=== PATIENT | female | born 1965 | race Caucasian/White ===

== ENCOUNTER 2023-07-20 16:10 | Inpatient (IN) ==
--- NOTE | 2023-07-20 16:28 | ED Triage Note ---
Date of Service July 20, 2023 History of Present Illness This patient was briefly evaluated while in triage. An abbreviated physical exam was performed. This patient is a 58-year-old Female who presents to the ED for evaluation of body aches, cough, dyspnea, weakness, fever up to 104. symptoms started several days ago. history of COPD. Has not been using albuterol. sent by [facility]. Physical Exam CONSTITUTIONAL: ill appearing, nontoxic SKIN: pink, warm, dry CARDIAC: tachycardic rate and regular rhythm RESPIRATORY: slight increased work of breathing, no tripoding. moving air bilaterally with no wheezes or rales Initial orders for labs and / or imaging were placed and patient was placed in the waiting area until a bed is available. Please see further documentation for the full ED course.
[2023-07-20] MEDS ORDERED: cefTRIAXone SODIUM 2,000 MG/50 ML BAG IV STA (17:27)
[2023-07-20 17:29] LABS: Hematocrit (blood only) 40.5 % (37.0-47.0); Hemoglobin 14.3 g/dl (12.0-16.0); Mean Corpuscular Hemoglobin 34.2 pg (25.0-34.0); Mean Corpuscular Hgb Conc 35.3 g/dL (32.0-36.0); Mean Corpuscular Volume 96.9 fL (80.0-100.0); Mean Platelet Volume 10.8 fL (9.4-12.4); Platelet Count 154 K/uL (130-400); RDW Coefficient of Variation 13.5 % (11.5-14.5); RDW Standard Deviation 48.6 fL (36.4-46.3); Red Blood Count 4.18 M/uL (4.20-5.40); White Blood Count 14.68 K/ul (4.8-10.8)
[2023-07-20 17:44] LABS: Base Excess VBG 0.3 mEq/L; HCO3 VBG 23 mmol/L; Oxygen Saturation VBG < 60.0 %; PCO2 VBG 32 mmHg (38-50); PO2 VBG 20 mmHg; pH VBG 7.47 (7.36-7.41)
--- NOTE | 2023-07-20 17:45 | XRay Report ---
XR chest 1V portable CLINICAL HISTORY: dyspnea, cough, fever COMPARISON STUDY: No previous studies for comparison. FINDINGS: Apparent left lung volume loss may be due to a rotated study. Moderate left mid and basilar airspace opacity is present. Right lung is clear. There is no evidence for pulmonary edema. Azygos f issure is noted. There is no pneumothorax or pleural effusion. IMPRESSION: Airspace opacities within the left mid and lower lung. The findings favor pneumonia. Post radiographs to ensure resolution and exclude the possibility of underlying pulmonary lesion are enzo mmended. ACT 112: Positive. There are findings on this exam that require communication between the performing entity and the patient following Patient Test Result Information Act ([place] Act 112) guidelines. Electronically signed by: Ebenezer Carroll M.D. 07/20/2023 5:43 PM
[2023-07-20 17:46] LABS: Alanine Aminotransferase 55 U/L (7-52); Albumin Globulin Ratio 1.2 (0.9-2); Albumin Level 4.2 gm/dl (3.4-5.0); Alkaline Phosphatase 52 U/L (34-104); Anion Gap 14 (3-11); Aspartate Aminotransferase 66 U/L (13-39); BUN Creatinine Ratio 14.6 (10-20); Bilirubin,Total 1.5 mg/dl (0.2-1.0); Blood Urea Nitrogen 13 mg/dl (6-23); Calcium 8.9 mg/dl (8.6-10.3); Carbon Dioxide 20 mmol/L (21-32); Chloride 93 mmol/L (98-107); Est GFR (African American) 82.8 ml/min; Est GFR (Non-African American) 71.4 ml/min; Globulin 3.4 gm/dl (2.5-4.0); Glucose 111 mg/dl (70-99(Fasting)); Potassium 3.6 mmol/L (3.5-5.1); Sodium 127 mmol/L (136-145); Total Protein 7.6 gm/dl (6.0-8.3)
[2023-07-20 17:49] LABS: Basophils # (auto) 0.04 K/uL (0.00-0.20); Basophils % (auto) 0.3 %; Eosinophils # (auto) 0.18 K/uL (0.00-0.50); Eosinophils % (auto) 1.2 %; Immature Granulocytes # (auto) 0.25 K/uL (0.01-0.20); Immature Granulocytes % (auto) 1.7 %; Lymphocytes # (auto) 0.48 K/uL (1.20-3.40); Lymphocytes % (auto) 3.3 %; Monocytes # (auto) 0.29 K/uL (0.11-0.59); Neutrophils # (auto) 13.44 K/uL (1.40-6.50); Neutrophils % (auto) 91.5 %; Toxic Vacuolation 1+
[2023-07-20 17:53] LABS: Troponin I High Sensitivity 17.6 pg/ml (0-14)
[2023-07-20] MEDS: SODIUM CHLORIDE 0.9% 1,000 ML IV SCH ×2 (18:09→19:53)
[2023-07-20 18:15] LABS: Adenovirus PCR Not Detected (NotDetected); Bordetella parapertussis PCR Not Detected (NotDetected); Bordetella pertussis PCR Not Detected (NotDetected); Chlamydia pneumoniae PCR Not Detected (NotDetected); Coronavirus 229E PCR Not Detected (NotDetected); Coronavirus CoV-2 (COVID19)PCR Not Detected (NotDetected); Coronavirus HKU1 PCR Not Detected (NotDetected); Coronavirus NL63 PCR Not Detected (NotDetected); Coronavirus OC43PCR Not Detected (NotDetected); Human Metapneumovirus PCR Not Detected (NotDetected); Influenza A PCR Not Detected (NotDetected); Influenza B PCR Not Detected (NotDetected); Mycoplasma pneumoniae PCR Not Detected (NotDetected); Parainfluenza Virus 1 PCR Not Detected (NotDetected); Parainfluenza Virus 2 PCR Not Detected (NotDetected); Parainfluenza Virus 3 PCR Not Detected (NotDetected); Parainfluenza Virus 4 PCR Not Detected (NotDetected); Respiratory Syncytial VirusPCR Not Detected (NotDetected); Rhinovirus/Enterovirus PCR Not Detected (NotDetected)
--- NOTE | 2023-07-20 18:32 | Emergency Department Note ---
Impression & Plan Community acquired pneumonia, Sepsis ED Provider Note NAME: SEA RAMIREZ AGE: 58 SEX: F : 1965 ARRIVES VIA: Walk-In INFORMANT: Patient, ED PROVIDER(S): Ana María Guy MD CHIEF COMPLAINT: Shortness of breath, confusion HPI: This is a 58-year-old female presenting for shortness of breath. Patient is with her and states that evening, patient began started feel tired, unwell with a cough. This is been progressive and worsening over the past few days. Her provides the story as patient is unable to meaningfully give information at this time. He states that the patient was in bed since Saturday and has not really gotten out of bed except to go to the bathroom. She has had chills, cough and worsening shortness of breath during this time. She have history of COPD and asthma as well. No temperature reported at home however at doctor's office outpatient temperature was 104. ROS: See above HPI for pertinent positives & negatives. A total of 10 systems reviewed and were otherwise negative. PAST MEDICAL HISTORY: See Below PAST SURGICAL HISTORY: See Below FAMILY HISTORY: See Below SOCIAL HISTORY: See Below HOME MEDICATIONS: See Below ALLERGIES: See Below VITALS: See Below PHYSICAL EXAMINATION: General: Moderate respiratory distress Head: Normocephalic and atraumatic Eyes: Normal inspection, extraocular muscles intact Ear, nose, throat: Normal external exam Neck: Normal range of motion, no meningismus Respiratory: Moderate respite distress with rhonchi at the left lung Cardiovascular: Regular rate/rhythm, no murmur GI: soft, nontender, no guarding or rebound Extremities: nontender, moves all extremities Neuro: Awake, alert, and oriented x 2, moves extremities spontaneously Skin: Warm, dry, and intact MEDICAL DECISION MAKING: This is a 58-year-old female presented for shortness of breath. Patient is moderately dazed here, somewhat confused, not completely oriented. She stares off into space. She is fairly tachypnea, will apply oxygen for comfort. She is not hypoxic. Consider sepsis, will give 2 L resuscitation. Will give broad- spectrum antibiotic with cefepime. Chest Xray independently interpreted by me showing no pneumothorax, large focal opacity in the left lower lung concerning for infectious process. Patient had CT head that revealed no acute intracranial process. -Laboratory shows a leukocytosis to 14. VBG does show slight respiratory alkalosis. Concern for hyponatremia, anion gap is noted. Transaminitis with elevated bilirubin, elevated troponin. All these are concerning for sepsis. CT confirmed left lower lobe pneumonia Patient will require admission at this time due to altered mental status, concern for sepsis in this pneumonia with increased respiratory rate. Differential diagnosis: Pneumonia, sepsis, low concern for meningitis ER treatment provided: See below Diagnostics interpreted by me: ECG: ECG independently interpreted by me with sinus tachycardia, rate of 110, normal axis, normal UT, normal QRS, normal QTc, no ST segment elevations consistent with STEMI criteria Cardiac Monitoring: An order was placed for continuous cardiac monitoring. The monitor shows a rate of 110 with sinus rhythm Laboratory studies: As stated above and show below. Imaging studies: See below. Critical Care Note: I have personally spent 40 minutes of critical care time in the direct management of this patient. This includes bedside care, interpretation of diagnostic studies, and testing, discussion with consultants, patient, and family members, and other required patient management activities. This 40 minutes is in excess of all separately billable procedures. Past Med/Surg History Social History Smoking Status: Current every day smoker Feels Safe at Home: Yes Allergies Allergies Allergy/AdvReac Type Severity Reaction Status Date / Time nickel Allergy Mild Rash Verified 07/20/23 19:11 IVP DYE Allergy Severe Anaphylaxis Uncoded 07/20/23 19:11 Home Meds Home Medications Medication Instructions Recorded Confirmed albuterol sulfate 2.5 mg/3 mL 2.5 mg inhalation DIRECTED PRN 07/20/23 07/20/23 (0.083 %) solution for nebulization Shortness Of Breath Or Wheezing albuterol sulfate 90 mcg/actuation 2 puff inhalation Q4H PRN 07/20/23 07/20/23 aerosol inhaler (Ventolin HFA) COUGH/SHORT OF BREATH/WHEEZING bupropion HCl 200 mg tablet,12 hr 200 mg PO BID 07/20/23 07/20/23 sustained-release diltiazem HCl 240 mg 240 mg PO QAM 07/20/23 07/20/23 capsule,extended release 24 hr escitalopram oxalate 10 mg tablet 15 mg PO QAM 07/20/23 07/20/23 fexofenadine 180 mg tablet 180 mg PO DAILY 07/20/23 07/20/23 fluticasone fur. 100 mcg-umeclid 1 inh inhalation DAILY 07/20/23 07/20/23 62.5 mcg-vilant 25 mcg inhalat.powder (Trelegy Ellipta) folic acid 1 mg tablet 3 mg PO DAILY 07/20/23 07/20/23 hydroxychloroquine 200 mg tablet 300 mg PO HS 07/20/23 07/20/23 leflunomide 10 mg tablet 10 mg PO QAM 07/20/23 07/20/23 losartan 100 mg tablet 100 mg PO QAM 07/20/23 07/20/23 metoprolol succinate 25 mg 25 mg PO DAILY 07/20/23 07/20/23 tablet,extended release 24 hr naproxen sodium 220 mg tablet 440 mg PO Q12H PRN Pain 07/20/23 07/20/23 omeprazole 20 mg capsule,delayed 20 mg PO DAILYBB 07/20/23 07/20/23 release potassium chloride 10 mEq 10 meq PO QAM 07/20/23 07/20/23 tablet,extended release(part/cryst) (Klor-Con M) psyllium 1 tbsp PO DAILY PRN Constipation 07/20/23 07/20/23 upadacitinib 15 mg tablet,extended 15 mg PO QAM 07/20/23 07/20/23 release 24 hr (Rinvoq) Results & Data (ED) Vital Signs Vital Signs - 24 hr 07/20/23 16:18 07/20/23 16:39 07/20/23 16:40 Temperature 37.6 C H Temperature Source Temporal Artery Scan Pulse Rate 124 H 111 H 110 H Pulse Rate from SpO2 Sensor 112 H 109 H Respiratory Rate 22 44 H 39 H Respiratory Effort / Characteristics Non-Labored Respiratory Depth Normal Blood Pressure 131/71 Blood Pressure Mean 91 Pulse Oximetry 95 96 96 Oxygen Delivery Method Room Air Oxygen Flow Rate Sepsis Recent Fever Within 48 Hours Yes Sepsis New/Unexplained Change in Mental Status No Sepsis Action Taken by Nursing Adv Provider Notified 07/20/23 16:45 07/20/23 16:50 07/20/23 16:54 Temperature Temperature Source Pulse Rate 110 H 115 H 113 H Pulse Rate from SpO2 Sensor 117 H Respiratory Rate 21 23 Respiratory Effort / Characteristics Respiratory Depth Blood Pressure Blood Pressure Mean Pulse Oximetry 96 Oxygen Delivery Method Oxygen Flow Rate Sepsis Recent Fever Within 48 Hours Sepsis New/Unexplained Change in Mental Status Sepsis Action Taken by Nursing 07/20/23 16:54 07/20/23 16:57 07/20/23 17:00 Temperature Temperature Source Pulse Rate 112 H Pulse Rate from SpO2 Sensor Respiratory Rate 29 H Respiratory Effort / Characteristics Respiratory Depth Blood Pressure 147/95 H Blood Pressure Mean 101 Pulse Oximetry 98 Oxygen Delivery Method Room Air Oxygen Flow Rate 0 Sepsis Recent Fever Within 48 Hours Sepsis New/Unexplained Change in Mental Status Sepsis Action Taken by Nursing 07/20/23 17:01 07/20/23 17:01 07/20/23 17:10 Temperature Temperature Source Pulse Rate 110 H 112 H Pulse Rate from SpO2 Sensor 112 H Respiratory Rate 30 H 41 H Respiratory Effort / Characteristics Respiratory Depth Blood Pressure 150/60 H Blood Pressure Mean 106 Pulse Oximetry 95 Oxygen Delivery Method Room Air Oxygen Flow Rate Sepsis Recent Fever Within 48 Hours Sepsis New/Unexplained Change in Mental Status Sepsis Action Taken by Nursing 07/20/23 17:15 07/20/23 17:15 07/20/23 17:19 Temperature Temperature Source Pulse Rate 113 H Pulse Rate from SpO2 Sensor 114 H Respiratory Rate 33 H Respiratory Effort / Characteristics Respiratory Depth Blood Pressure 159/97 H 164/90 H Blood Pressure Mean 116 116 Pulse Oximetry 95 Oxygen Delivery Method Oxygen Flow Rate Sepsis Recent Fever Within 48 Hours Sepsis New/Unexplained Change in Mental Status Sepsis Action Taken by Nursing 07/20/23 17:19 07/20/23 17:20 07/20/23 17:20 Temperature Temperature Source Pulse Rate 109 H 110 H Pulse Rate from SpO2 Sensor 109 H 112 H Respiratory Rate 33 H 27 H Respiratory Effort / Characteristics Respiratory Depth Blood Pressure 153/90 H Blood Pressure Mean 108 Pulse Oximetry 96 95 Oxygen Delivery Method Oxygen Flow Rate Sepsis Recent Fever Within 48 Hours Sepsis New/Unexplained Change in Mental Status Sepsis Action Taken by Nursing 07/20/23 17:30 07/20/23 17:40 07/20/23 17:45 Temperature Temperature Source Pulse Rate 106 H 109 H Pulse Rate from SpO2 Sensor Respiratory Rate 35 H 31 H Respiratory Effort / Characteristics Respiratory Depth Blood Pressure 168/96 H Blood Pressure Mean 115 Pulse Oximetry Oxygen Delivery Method Oxygen Flow Rate Sepsis Recent Fever Within 48 Hours Sepsis New/Unexplained Change in Mental Status Sepsis Action Taken by Nursing 07/20/23 17:45 07/20/23 17:50 07/20/23 18:00 Temperature Temperature Source Pulse Rate 105 H 107 H 110 H Pulse Rate from SpO2 Sensor 105 H 107 H 112 H Respiratory Rate 33 H 33 H 33 H Respiratory Effort / Characteristics Respiratory Depth Blood Pressure Blood Pressure Mean Pulse Oximetry 96 95 95 Oxygen Delivery Method Oxygen Flow Rate Sepsis Recent Fever Within 48 Hours Sepsis New/Unexplained Change in Mental Status Sepsis Action Taken by Nursing 07/20/23 18:00 07/20/23 18:10 07/20/23 18:20 Temperature Temperature Source Pulse Rate 117 H 106 H Pulse Rate from SpO2 Sensor Respiratory Rate 27 H 32 H Respiratory Effort / Characteristics Respiratory Depth Blood Pressure 155/97 H Blood Pressure Mean 104 Pulse Oximetry Oxygen Delivery Method Oxygen Flow Rate Sepsis Recent Fever Within 48 Hours Sepsis New/Unexplained Change in Mental Status Sepsis Action Taken by Nursing 07/20/23 18:56 07/20/23 18:56 07/20/23 18:58 Temperature 38.1 C H Temperature Source Oral Pulse Rate Pulse Rate from SpO2 Sensor 104 H Respiratory Rate Respiratory Effort / Characteristics Respiratory Depth Blood Pressure 157/95 H Blood Pressure Mean 107 Pulse Oximetry 98 Oxygen Delivery Method Nasal Cannula Oxygen Flow Rate 2 Sepsis Recent Fever Within 48 Hours Sepsis New/Unexplained Change in Mental Status Sepsis Action Taken by Nursing 07/20/23 19:00 07/20/23 19:00 07/20/23 19:10 Temperature Temperature Source Pulse Rate 108 H 105 H Pulse Rate from SpO2 Sensor 109 H 108 H Respiratory Rate 22 41 H Respiratory Effort / Characteristics Respiratory Depth Blood Pressure 167/83 H Blood Pressure Mean 125 Pulse Oximetry 97 97 Oxygen Delivery Method Room Air Oxygen Flow Rate Sepsis Recent Fever Within 48 Hours Sepsis New/Unexplained Change in Mental Status Sepsis Action Taken by Nursing 07/20/23 19:21 07/20/23 19:54 07/20/23 19:58 Temperature 37.8 C H Temperature Source Oral Pulse Rate 115 H 110 H Pulse Rate from SpO2 Sensor Respiratory Rate 35 H Respiratory Effort / Characteristics Respiratory Depth Blood Pressure 159/86 H Blood Pressure Mean Pulse Oximetry Oxygen Delivery Method Oxygen Flow Rate Sepsis Recent Fever Within 48 Hours Sepsis New/Unexplained Change in Mental Status Sepsis Action Taken by Nursing Laboratory Data 07/20/23 16:50 07/20/23 20:17 Lab Results 07/20/23 07/20/23 07/20/23 Range/Units 16:50 16:51 17:33 WBC 14.68 H (4.8-10.8) K/ul RBC 4.18 L (4.20-5.40) M/uL Hgb 14.3 (12.0-16.0) g/dl Hct 40.5 (37.0-47.0) % MCV 96.9 (80.0-100.0) fL MCH 34.2 H (25.0-34.0) pg MCHC 35.3 (32.0-36.0) g/dL RDW Std Deviation 48.6 H (36.4-46.3) fL RDW Coeff of Ilia 13.5 (11.5-14.5) % Plt Count 154 (130-400) K/uL MPV 10.8 (9.4-12.4) fL Immature Gran % (Auto) 1.7 % Neut % (Auto) 91.5 % Lymph % (Auto) 3.3 % [place] % (Auto) 2.0 % Eos % (Auto) 1.2 % Baso % (Auto) 0.3 % Neut # (Auto) 13.44 H (1.40-6.50) K/uL Lymph # (Auto) 0.48 L (1.20-3.40) K/uL [place] # (Auto) 0.29 (0.11-0.59) K/uL Eos # (Auto) 0.18 (0.00-0.50) K/uL Baso # (Auto) 0.04 (0.00-0.20) K/uL Immature Gran # (Auto) 0.25 H (0.01-0.20) K/uL Toxic Vacuolation 1+ APTT (21.0-31.0) Seconds PTT Ratio VBG pH 7.47 H (7.36-7.41) VBG pCO2 32 L (38-50) mmHg VBG pO2 20 mmHg VBG HCO3 23 mmol/L VBG O2 Saturation < 60.0 % VBG Base Excess 0.3 mEq/L Sodium 127 L (136-145) mmol/L Potassium 3.6 (3.5-5.1) mmol/L Chloride 93 L (98-107) mmol/L Carbon Dioxide 20 L (21-32) mmol/L Anion Gap 14 H (3-11) BUN 13 (6-23) mg/dl Creatinine 0.89 (0.6-1.2) mg/dl Est Cr Clr Drug Dosing Not Reportable Est GFR ( Amer) 82.8 ml/min Est GFR (Non-Af Amer) 71.4 ml/min BUN/Creatinine Ratio 14.6 (10-20) Glucose 111 H (70-99(Fasting)) mg/dl Osmolality (280-300) mOsm/kg Lactate 1.9 (0.4-2.0) mmol/L Calcium 8.9 (8.6-10.3) mg/dl Magnesium 1.7 (1.7-2.4) mg/dl Total Bilirubin 1.5 H (0.2-1.0) mg/dl AST 66 H (13-39) U/L ALT 55 H (7-52) U/L Alkaline Phosphatase 52 (34-104) U/L Troponin I High Sens 17.6 H (0-14) pg/ml Total Protein 7.6 (6.0-8.3) gm/dl Albumin 4.2 (3.4-5.0) gm/dl Globulin 3.4 (2.5-4.0) gm/dl Albumin/Globulin Ratio 1.2 (0.9-2) TSH 1.811 (0.300-4.500) uIu/ml Ethyl Alcohol mg/dL (<10.0) mg/dl Adenovirus (PCR) Not Detected (NotDetected) B. pertussis DNA (PCR) Not Detected (NotDetected) B.parapertussis DNA PCR Not Detected (NotDetected) C. pneumoniae DNA (PCR) Not Detected (NotDetected) Coronavirus OC43 (PCR) Not Detected (NotDetected) Coronavirus HKU1 (PCR) Not Detected (NotDetected) Coronavirus 229E (PCR) Not Detected (NotDetected) SARS-CoV-2 (PCR) Not Detected (NotDetected) Coronavirus NL63 (PCR) Not Detected (NotDetected) Human Metapneumovir PCR Not Detected (NotDetected) Influenza Type A (PCR) Not Detected (NotDetected) Influenza Type B (PCR) Not Detected (NotDetected) M. pneumoniae (PCR) Not Detected (NotDetected) Parainfluenza 1 (PCR) Not Detected (NotDetected) Parainfluenza 2 (PCR) Not Detected (NotDetected) Parainfluenza 3 (PCR) Not Detected (NotDetected) Parainfluenza 4 (PCR) Not Detected (NotDetected) RSV (PCR) Not Detected (NotDetected) Entero/Rhino (PCR) Not Detected (NotDetected) 07/20/23 Range/Units 20:17 WBC (4.8-10.8) K/ul RBC (4.20-5.40) M/uL Hgb (12.0-16.0) g/dl Hct (37.0-47.0) % MCV (80.0-100.0) fL MCH (25.0-34.0) pg MCHC (32.0-36.0) g/dL RDW Std Deviation (36.4-46.3) fL RDW Coeff of Ilia (11.5-14.5) % Plt Count (130-400) K/uL MPV (9.4-12.4) fL Immature Gran % (Auto) % Neut % (Auto) % Lymph % (Auto) % [place] % (Auto) % Eos % (Auto) % Baso % (Auto) % Neut # (Auto) (1.40-6.50) K/uL Lymph # (Auto) (1.20-3.40) K/uL [place] # (Auto) (0.11-0.59) K/uL Eos # (Auto) (0.00-0.50) K/uL Baso # (Auto) (0.00-0.20) K/uL Immature Gran # (Auto) (0.01-0.20) K/uL Toxic Vacuolation APTT 30.8 (21.0-31.0) Seconds PTT Ratio 1.1 VBG pH (7.36-7.41) VBG pCO2 (38-50) mmHg VBG pO2 mmHg VBG HCO3 mmol/L VBG O2 Saturation % VBG Base Excess mEq/L Sodium 129 L (136-145) mmol/L Potassium (3.5-5.1) mmol/L Chloride (98-107) mmol/L Carbon Dioxide (21-32) mmol/L Anion Gap (3-11) BUN (6-23) mg/dl Creatinine (0.6-1.2) mg/dl Est Cr Clr Drug Dosing Est GFR ( Amer) ml/min Est GFR (Non-Af Amer) ml/min BUN/Creatinine Ratio (10-20) Glucose (70-99(Fasting)) mg/dl Osmolality 265 L (280-300) mOsm/kg Lactate (0.4-2.0) mmol/L Calcium (8.6-10.3) mg/dl Magnesium (1.7-2.4) mg/dl Total Bilirubin (0.2-1.0) mg/dl AST (13-39) U/L ALT (7-52) U/L Alkaline Phosphatase (34-104) U/L Troponin I High Sens 28.5 H D (0-14) pg/ml Total Protein (6.0-8.3) gm/dl Albumin (3.4-5.0) gm/dl Globulin (2.5-4.0) gm/dl Albumin/Globulin Ratio (0.9-2) TSH (0.300-4.500) uIu/ml Ethyl Alcohol mg/dL < 10.0 (<10.0) mg/dl Adenovirus (PCR) (NotDetected) B. pertussis DNA (PCR) (NotDetected) B.parapertussis DNA PCR (NotDetected) C. pneumoniae DNA (PCR) (NotDetected) Coronavirus OC43 (PCR) (NotDetected) Coronavirus HKU1 (PCR) (NotDetected) Coronavirus 229E (PCR) (NotDetected) SARS-CoV-2 (PCR) (NotDetected) Coronavirus NL63 (PCR) (NotDetected) Human Metapneumovir PCR (NotDetected) Influenza Type A (PCR) (NotDetected) Influenza Type B (PCR) (NotDetected) M. pneumoniae (PCR) (NotDetected) Parainfluenza 1 (PCR) (NotDetected) Parainfluenza 2 (PCR) (NotDetected) Parainfluenza 3 (PCR) (NotDetected) Parainfluenza 4 (PCR) (NotDetected) RSV (PCR) (NotDetected) Entero/Rhino (PCR) (NotDetected) Administered Medications Nicotine (Nicotine 14 Mg/24 Hr Patch) 14 mg TD HS JAQUELIN Stop: 08/19/23 20:29 Last Admin: 07/20/23 21:13 Dose: 14 mg Documented By: GEORGE Discontinued Medications Acetaminophen (Acetaminophen 325 Mg Tab) 650 mg PO NOW STA Stop: 07/20/23 19:04 Last Admin: 07/20/23 19:10 Dose: 650 mg Documented By: GEORGE Ceftriaxone Sodium (Rocephin) 2,000 mg in 50 mls @ 100 mls/hr IV NOW STA; Protocol Stop: 07/20/23 17:56 Last Admin: 07/20/23 18:10 Dose: Not Given Documented By: GEORGE Sodium Chloride (Nss) 1,000 mls @ 999 mls/hr IV .Q1H1M JAQUELIN Stop: 07/20/23 20:00 Last Infusion: 07/20/23 21:19 Dose: Infused Documented By: Admin: 07/20/23 19:53 Dose: 999 mls/hr Documented By: Infusion: 07/20/23 19:10 Dose: Infused Documented By: Admin: 07/20/23 18:09 Dose: 999 mls/hr Documented By: GEORGE Cefepime HCl (Maxipime) 2,000 mg in 20 mls @ 5 mls/min IV NOW STA; Protocol Stop: 07/20/23 18:57 Last Admin: 07/20/23 19:11 Dose: 5 mls/min Documented By: GEORGE Doxycycline Hyclate 100 mg/ (Dextrose) 100 mls @ 50 mls/hr IV NOW STA Stop: 07/20/23 21:32 Last Infusion: 07/20/23 23:31 Dose: Infused Documented By: Admin: 07/20/23 21:11 Dose: 50 mls/hr Documented By: GEORGE Magnesium Sulfate/Dextrose (Magnesium Sulfate / D5w) 1 gm in 100 mls @ 50 mls/hr IV ONE ONE Stop: 07/20/23 21:34 Last Infusion: 07/20/23 21:57 Dose: Infused Documented By: Admin: 07/20/23 19:55 Dose: 50 mls/hr Documented By: GEORGE Methylprednisolone 20 mg/ (Syringe) 0.32 mls @ 1.5 mls/min IV NOW STA Stop: 07/20/23 20:31 Last Admin: 07/20/23 21:12 Dose: 1.5 mls/min Documented By: GEORGE Magnesium Sulfate/Dextrose (Magnesium Sulfate / D5w) 1 gm in 100 mls @ 50 mls/hr IV ONE ONE Stop: 07/20/23 22:30 Last Admin: 07/20/23 22:59 Dose: 50 mls/hr Documented By: MONIQUE Ioversol (Optiray 320 500ml) 86 ml IV ONCE ONE Stop: 07/20/23 18:37 Last Admin: 07/20/23 18:37 Dose: 86 ml Documented By: BUTCH Ipratropium [place] (Ipratropium [place] Neb Soln 0.02% 2.5 Ml Vial) 0.5 mg INH NOW STA Stop: 07/20/23 20:30 Last Admin: 07/20/23 21:15 Dose: 0.5 mg Documented By: GEORGE Levalbuterol HCl (Levalbuterol 1.25mg/0.5ml Neb) 1.25 mg NEB NOW STA Stop: 07/20/23 20:30 Last Admin: 07/20/23 21:28 Dose: 1.25 mg Documented By: GEORGE Levalbuterol HCl (Levalbuterol 1.25 Mg/3 Ml Neb) Confirm Administered Dose 1.25 mg .ROUTE .STK-MED ONE Stop: 07/20/23 21:27 Last Admin: 07/20/23 21:28 Dose: Not Given Documented By: GEORGE Metoprolol Tartrate (Metoprolol Tartrate 1 Mg/Ml Vial) 2.5 mg IV NOW STA Stop: 07/20/23 19:34 Last Admin: 07/20/23 19:54 Dose: 2.5 mg Documented By: GEORGE Potassium Chloride (Potassium Chloride Crtab 20 Meq Tabcr) 40 meq PO NOW STA Stop: 07/20/23 19:33 Last Admin: 07/20/23 19:51 Dose: 40 meq Documented By: GEORGE Imaging Data Radiologist's Impression: Chest X-Ray 07/20/23 16:21 XR chest 1V portable CLINICAL HISTORY: dyspnea, cough, fever COMPARISON STUDY: No previous studies for comparison. FINDINGS: Apparent left lung volume loss may be due to a rotated study. Moderate left mid and basilar airspace opacity is present. Right lung is clear. There is no evidence for pulmonary edema. Azygos fissure is noted. There is no pneumothorax or pleural effusion. IMPRESSION: Airspace opacities within the left mid and lower lung. The findings favor pneumonia. Post radiographs to ensure resolution and exclude the possibility of underlying pulmonary lesion are recommended. ACT 112: Positive. There are findings on this exam that require communication between the performing entity and the patient following Patient Test Result Information Act ([place] Act 112) guidelines. Electronically signed by: Ebenezer Carroll M.D. 07/20/2023 5:[address] 07/20/23 17:26 CT OF THE CHEST WITH IV CONTRAST CLINICAL HISTORY: Shortness of breath. COMPARISON STUDY: Chest radiograph performed earlier today. TECHNIQUE: Following IV administration of 86 mL of Optiray, helical axial images of the chest were obtained. Sagittal and coronal reconstructions were viewed as well as maximal intensity projections on an independent 3-D workstation. Automated exposure control was utilized for the study. A dose lowering technique was utilized adhering to the principles of ALARA. CT DOSE: 1248.32 mGy.cm FINDINGS: Lungs are suboptimally assessed due to respiratory motion. There is extensive left upper lobe consolidation, predominantly within the lingula. Central airways are patent. There is no cavitation. There is a trace left pleural effusion. Severe emphysema is present. There is no consolidation within the right lung. Azygos fissure is incidentally noted. Right middle lobe linear density favors atelectasis. No acute fractures within the bony thorax are noted. There is a prominent AP window lymph node on image 77 of 233 measures 1 cm. Mild cardiomegaly is noted. There is no pericardial effusion. Visualized portions of the upper abdomen demonstrate mild fluid adjacent to the left adrenal gland and upper pole of the left kidney. No convincing evidence for pancreatitis within visualized portions of the abdomen. IMPRESSION: 1. Extensive lingular consolidation suggestive of pneumonia. A follow-up chest CT in 1 to 2 months to ensure resolution is recommended. Trace left pleural effusion. 2. Severe emphysema. 3. Prominent AP window lymph node. This is likely reactive but should be assessed on follow-up CT. 4. Mild fluid adjacent to left adrenal gland and upper pole of the left kidney. This finding is nonspecific. ACT 112: Positive. There are findings on this exam that require communication between the performing entity and the patient following Patient Test Result Information Act ([place] Act 112) guidelines. Electronically signed by: Ebenezer Carroll M.D. 07/20/2023 6:[address] 07/20/23 17:26 CT OF THE HEAD WITHOUT CONTRAST CLINICAL HISTORY: Altered mental status. COMPARISON STUDY: No previous studies for comparison. TECHNIQUE: Helical axial images of the head were obtained without IV contrast. Automated exposure control was utilized for the study. A dose lowering technique was utilized adhering to the principles of ALARA. FINDINGS: No acute intracranial hemorrhage, midline shift or mass effect is present. The ventricular system is unremarkable. The basal cisterns are patent. No extra-axial collections are present. There are no findings to suggest acute dural sinus thrombosis or acute territorial infarct. White matter hypodensity suggests small vessel disease. No significant calvarial abnormalities are present. Visualized portions of the sinuses and mastoid air cells are clear. IMPRESSION: No acute intracranial findings. ACT 112: Negative or not required by law. Electronically signed by: Ebenezer Carroll M.D. 07/20/2023 6:49 PM Discharge Plan Visit Data Chief Complaint: Shortness of Breath/Dyspnea Stated Complaint: SOB, HEAD COLD, LOW ENERGY, CONFUSION ED Provider: Ana María Guy Discharge Problem: Community acquired pneumonia, Sepsis Discharge Instructions Interventions: ED Discharge Assessment Last Done: 07/20/23 22:56
[2023-07-20] MEDS ORDERED: OPTIRAY 320 500ml IV ONE (18:36)
--- NOTE | 2023-07-20 18:50 | CT Scan Report ---
CT OF THE HEAD WITHOUT CONTRAST CLINICAL HISTORY: Altered mental status. COMPARISON STUDY: No previous studies for comparison. TECHNIQUE: Helical axial images of the head were obtained without IV contrast. Automated exposure con trol was utilized for the study. A dose lowering technique was utilized adhering to the principles o f ALARA. FINDINGS: No acute intracranial hemorrhage, midline shift or mass effect is present. The ventricular system is unremarkable. The basal cisterns are patent. No extra-axial collections are present. There are no findings to suggest acute dural sinus thrombosis or acute territorial infarct. White matter hy podensity suggests small vessel disease. No significant calvarial abnormalities are present. Visualiz ed portions of the sinuses and mastoid air cells are clear. IMPRESSION: No acute intracranial findings. ACT 112: Negative or not required by law. Electronically signed by: Ebenezer Carroll M.D. 07/20/2023 6:49 PM
[2023-07-20] MEDS ORDERED: CEFEPIME 2,000 MG/20 ML VIAL IV STA (18:54)
--- NOTE | 2023-07-20 18:59 | CT Scan Report ---
CT OF THE CHEST WITH IV CONTRAST CLINICAL HISTORY: Shortness of breath. COMPARISON STUDY: Chest radiograph performed earlier today. TECHNIQUE: Following IV administration of 86 mL of Optiray, helical axial images of the chest were o btained. Sagittal and coronal reconstructions were viewed as well as maximal intensity projections o n an independent 3-D workstation. Automated exposure control was utilized for the study. A dose low ering technique was utilized adhering to the principles of ALARA. CT DOSE: 1248.32 mGy.cm FINDINGS: Lungs are suboptimally assessed due to respiratory motion. There is extensive left upper l obe consolidation, predominantly within the lingula. Central airways are patent. There is no cavitati on. There is a trace left pleural effusion. Severe emphysema is present. There is no consolidation wi thin the right lung. Azygos fissure is incidentally noted. Right middle lobe linear density favors at electasis. No acute fractures within the bony thorax are noted. There is a prominent AP window lymph node on image 77 of 233 measures 1 cm. Mild cardiomegaly is noted. There is no pericardial effusion. Visualized portions of the upper abdomen demonstrate mild fluid adjacent to the left adrenal gland an d upper pole of the left kidney. No convincing evidence for pancreatitis within visualized portions o f the abdomen. IMPRESSION: 1. Extensive lingular consolidation suggestive of pneumonia. A follow-up chest CT in 1 to 2 months to ensure resolution is recommended. Trace left pleural effusion. 2. Severe emphysema. 3. Prominent AP window lymph node. This is likely reactive but should be assessed on follow-up CT. 4. Mild fluid adjacent to left adrenal gland and upper pole of the left kidney. This finding is nonsp ecific. ACT 112: Positive. There are findings on this exam that require communication between the performing entity and the patient following Patient Test Result Information Act ([place] Act 112) guidelines. Electronically signed by: Ebenezer Carroll M.D. 07/20/2023 6:57 PM
[2023-07-20] MEDS ORDERED: ACETAMINOPHEN 325 MG TAB PO STA (19:03)
[2023-07-20] MEDS ORDERED: POTASSIUM CHLORIDE CRTAB 20 MEQ TABCR PO STA (19:32)
[2023-07-20] MEDS ORDERED: DOXYCYCLINE HYCLATE 100 MG in DEXTROSE 5% MINI-B 100 ML IV STA (19:33)
[2023-07-20] MEDS ORDERED: METOPROLOL TARTRATE 1 MG/ML VIAL IV STA (19:33)
[2023-07-20] MEDS ORDERED: MAGNESIUM SULFATE / D5W 1 GM/100 ML BAG IV ONE ×2 (19:35→20:31)
[2023-07-20 19:57] LABS: Magnesium 1.7 mg/dl (1.7-2.4)
[2023-07-20 20:13] LABS: Thyroid Stimulating Hormone 1.811 uIu/ml (0.300-4.500)
[2023-07-20] MEDS ORDERED: IPRATROPIUM BROMIDE NEB SOLN 0.02% 2.5 ML VIAL INH STA (20:29)
[2023-07-20] MEDS ORDERED: LEVALBUTEROL 1.25MG/0.5ML NEB NEB STA (20:29)
[2023-07-20] MEDS ORDERED: XOPENEX/ATROVENT 1.25mg/0.5MG NEB COMBO NEB STA (20:29)
[2023-07-20] MEDS ORDERED: methylPREDNISolone 20 MG in SYRINGE 0 ML IV STA (20:30)
--- NOTE | 2023-07-20 20:31 | History & Physical Report ---
Date of Service July 20, 2023 Assessment & Plan (1) Severe sepsis: Plan: SIRS plus encephalopathy Secondary to community-acquired pneumonia Immunocompromised patient hx rheumatoid arthritis on immunosuppressive regimen Encephalopathy secondary to sepsis, hyponatremia Home bupropion contributory COPD exacerbation secondary to pneumonia Hypertension and troponin elevation secondary to illness hx PSVT Abnormal LFTs, hx NAFLD as per records, ? possible alcoholic hepatitis, concern for alcohol abuse as per outpatient [facility]ology documentation last month ADD/anxiety/mood disorder Hyperglycemia rule out DM erythema nodosum as per records ongoing tobacco abuse. Medical telemetry CS, Ceftriaxone, Doxycycline Nebs RTC, short course steroids Pulmonology consult if without improvement Hold Arava and Rinvoq RA medications for now until patient recovers from infection. Careful correction of sodium, hyponatremia work-up Hold bupropion until patient mentation back to baseline MAGGIE S at risk protocol for now, DT precautions Check hemoglobin A1c DVT prophylaxis. Lovenox subcu Full code Attempted to contact patient's (Mr. Barrington Amezcua, contact #[phone]) to obtain additional information and to give update on plan of care. No answer, left message for call back. Text document was generated using [employer] voice recognition software. It may contain grammatical or spelling errors. Kindly contact undersigned for clarification of any documentation item in question. History of Present Illness Chief Complaint: Shortness of breath, cough symptoms, zoning out Primary Care Provider: Lilly Thorne MD History obtained from patient and records. History limited from patient secondary to mild disorientation. Medical history significant for hypertension, PSVT, COPD, RA on immunosuppressive regimen, NAFLD as per records, ADD/anxiety/mood disorder, cervical dysplasia as per records, erythema nodosum as per records, ongoing tobacco abuse. Patient has been sick the last few days. Junky cough symptoms without shortness of breath. Denies chest pain or aspiration. Fever chills at home. Wheezing at home despite MDI use. Not sure about sick contacts. Patient has received COVID-19 vaccination. Patient 'zoning out' at home. No syncope or headache symptoms. Patient seen at weekend clinic today. Patient noted to be febrile and tachycardic. SBP 90s. Patient directed to ER for evaluation. Cefepime administered at the ER. Medical History as above Surgical History : Carpal tunnel surgery, BTL, laparoscopy for endometriosis Family History : MS, uterine cancer, breast cancer, COPD, bronchial asthma Personal/Social history : Half pack daily, social alcohol intake as per records, [employer] Allergies Allergy/AdvReac Type Severity Reaction Status Date / Time nickel Allergy Mild Rash Verified 07/20/23 19:11 IVP DYE Allergy Severe Anaphylaxis Uncoded 07/20/23 19:11 Home Medications Medication Instructions Recorded Confirmed Type albuterol sulfate 2.5 mg/3 mL 2.5 mg inhalation DIRECTED PRN 07/20/23 07/20/23 History (0.083 %) solution for nebulization Shortness Of Breath Or Wheezing albuterol sulfate 90 mcg/actuation 2 puff inhalation Q4H PRN 07/20/23 07/20/23 History aerosol inhaler (Ventolin HFA) COUGH/SHORT OF BREATH/WHEEZING bupropion HCl 200 mg tablet,12 hr 200 mg PO BID 07/20/23 07/20/23 History sustained-release diltiazem HCl 240 mg 240 mg PO QAM 07/20/23 07/20/23 History capsule,extended release 24 hr escitalopram oxalate 10 mg tablet 15 mg PO QAM 07/20/23 07/20/23 History fexofenadine 180 mg tablet 180 mg PO DAILY 07/20/23 07/20/23 History fluticasone fur. 100 mcg-umeclid 1 inh inhalation DAILY 07/20/23 07/20/23 Histo ry 62.5 mcg-vilant 25 mcg inhalat.powder (Trelegy Ellipta) folic acid 1 mg tablet 3 mg PO DAILY 07/20/23 07/20/23 History hydroxychloroquine 200 mg tablet 300 mg PO HS 07/20/23 07/20/23 History leflunomide 10 mg tablet 10 mg PO QAM 07/20/23 07/20/23 History losartan 100 mg tablet 100 mg PO QAM 07/20/23 07/20/23 History metoprolol succinate 25 mg 25 mg PO DAILY 07/20/23 07/20/23 History tablet,extended release 24 hr naproxen sodium 220 mg tablet 440 mg PO Q12H PRN Pain 07/20/23 07/20/23 History omeprazole 20 mg capsule,delayed 20 mg PO DAILYBB 07/20/23 07/20/23 History release potassium chloride 10 mEq 10 meq PO QAM 07/20/23 07/20/23 History tablet,extended release(part/cryst) (Klor-Con M) psyllium 1 tbsp PO DAILY PRN Constipation 07/20/23 07/20/23 History upadacitinib 15 mg tablet,extended 15 mg PO QAM 07/20/23 07/20/23 History release 24 hr (Rinvoq) Past Med/Surg History Social History Smoking Status: Current every day smoker Tobacco Type: Cigarettes Second Hand Exposure: No; Do You Dip or Chew Tobacco: No; Hx Alcohol Use: Yes Alcohol type: hard liquor Hx Substance Use: No Preferred Language: German Communication Ability: Effective Merchandise Manager Required: No Beliefs That Will Affect Care: None Current Living Situation: Spouse Feels Safe at Home: Yes Safety Concerns: Feels Safe At This Time Assistive Devices: None Review of Systems Review of Systems: Could not be reliably obtained secondary to mild disorientation Physical Exam Physical Exam: GENERAL: Slightly uncomfortable, anxious, oriented to place, respiratory distress, nasal cannula in place SKIN: Normal color, warm HEENT: [place] palpebral conjunctivae, no ptosis, dry buccal mucosa NECK : Supple, no tenderness CHEST : Decreased breath sounds, occasional expiratory wheezes, no tenderness HEART : RRR, no obvious murmurs ABDOMEN: Some distention, nontender EXTREMITIES : Reticulate bluish discoloration over lower extremities (chronic as per patient), no LE swelling/tenderness, no other conspicuous deformities not ed NEUROLOGIC : Oriented to place, no facial asymmetry, no other gross focality Results & Data Results & Data Vital Signs (Past 12 Hours) Vital Signs Temp Pulse Resp BP Pulse Ox O2 Del Method O2 Flow Rate 07/20/23 19:58 37.8 C H 07/20/23 19:54 110 H 159/86 H 07/20/23 19:21 115 H 35 H 07/20/23 19:10 105 H 41 H 97 Room Air 07/20/23 19:00 108 H 22 97 07/20/23 19:00 167/83 H 07/20/23 18:58 38.1 C H 07/20/23 18:56 98 Nasal Cannula 2 07/20/23 18:56 157/95 H 07/20/23 18:20 106 H 32 H 07/20/23 18:10 117 H 27 H 07/20/23 18:00 155/97 H 07/20/23 18:00 110 H 33 H 95 07/20/23 17:50 107 H 33 H 95 07/20/23 17:45 105 H 33 H 96 07/20/23 17:45 168/96 H 07/20/23 17:40 109 H 31 H 07/20/23 17:30 106 H 35 H 07/20/23 17:20 110 H 27 H 95 07/20/23 17:20 153/90 H 07/20/23 17:19 109 H 33 H 96 07/20/23 17:19 164/90 H 07/20/23 17:15 113 H 33 H 95 07/20/23 17:15 159/97 H 07/20/23 17:10 112 H 41 H 95 Room Air 07/20/23 17:01 110 H 30 H 07/20/23 17:01 150/60 H 07/20/23 17:00 112 H 29 H 07/20/23 16:57 98 Room Air 0 07/20/23 16:54 147/95 H 07/20/23 16:54 113 H 23 96 07/20/23 16:50 115 H 21 07/20/23 16:45 110 H 07/20/23 16:40 110 H 39 H 96 07/20/23 16:39 111 H 44 H 96 07/20/23 16:18 37.6 C H 124 H 22 131/71 95 Room Air Laboratory Results Laboratory Results WBC 14.68 K/ul (4.8-10.8) H 07/20/23 16:50 RBC 4.18 M/uL (4.20-5.40) L 07/20/23 16:50 Hgb 14.3 g/dl (12.0-16.0) 07/20/23 16:50 Hct 40.5 % (37.0-47.0) 07/20/23 16:50 MCV 96.9 fL (80.0-100.0) 07/20/23 16:50 MCH 34.2 pg (25.0-34.0) H 07/20/23 16:50 MCHC 35.3 g/dL (32.0-36.0) 07/20/23 16:50 RDW Std Deviation 48.6 fL (36.4-46.3) H 07/20/23 16:50 RDW Coeff of Ilia 13.5 % (11.5-14.5) 07/20/23 16:50 Plt Count 154 K/uL (130-400) 07/20/23 16:50 MPV 10.8 fL (9.4-12.4) 07/20/23 16:50 Immature Gran % (Auto) 1.7 % 07/20/23 16:50 Neut % (Auto) 91.5 % 07/20/23 16:50 Lymph % (Auto) 3.3 % 07/20/23 16:50 [place] % (Auto) 2.0 % 07/20/23 16:50 Eos % (Auto) 1.2 % 07/20/23 16:50 Baso % (Auto) 0.3 % 07/20/23 16:50 Neut # (Auto) 13.44 K/uL (1.40-6.50) H 07/20/23 16:50 Lymph # (Auto) 0.48 K/uL (1.20-3.40) L 07/20/23 16:50 [place] # (Auto) 0.29 K/uL (0.11-0.59) 07/20/23 16:50 Eos # (Auto) 0.18 K/uL (0.00-0.50) 07/20/23 16:50 Baso # (Auto) 0.04 K/uL (0.00-0.20) 07/20/23 16:50 Immature Gran # (Auto) 0.25 K/uL (0.01-0.20) H 07/20/23 16:50 Toxic Vacuolation 1+ 07/20/23 16:50 VBG pH 7.47 (7.36-7.41) H 07/20/23 17:33 VBG pCO2 32 mmHg (38-50) L 07/20/23 17:33 VBG pO2 20 mmHg 07/20/23 17:33 VBG HCO3 23 mmol/L 07/20/23 17:33 VBG O2 Saturation < 60.0 % 07/20/23 17:33 VBG Base Excess 0.3 mEq/L 07/20/23 17:33 Sodium 127 mmol/L (136-145) L 07/20/23 16:50 Potassium 3.6 mmol/L (3.5-5.1) 07/20/23 16:50 Chloride 93 mmol/L (98-107) L 07/20/23 16:50 Carbon Dioxide 20 mmol/L (21-32) L 07/20/23 16:50 Anion Gap 14 (3-11) H 07/20/23 16:50 BUN 13 mg/dl (6-23) 07/20/23 16:50 Creatinine 0.89 mg/dl (0.6-1.2) 07/20/23 16:50 Est Cr Clr Drug Dosing Not Reportable 07/20/23 16:50 Est GFR ( Amer) 82.8 ml/min 07/20/23 16:50 Est GFR (Non-Af Amer) 71.4 ml/min 07/20/23 16:50 BUN/Creatinine Ratio 14.6 (10-20) 07/20/23 16:50 Glucose 111 mg/dl (70-99(Fasting)) H 07/20/23 16:50 Lactate 1.9 mmol/L (0.4-2.0) 07/20/23 17:33 Calcium 8.9 mg/dl (8.6-10.3) 07/20/23 16:50 Magnesium 1.7 mg/dl (1.7-2.4) 07/20/23 16:50 Total Bilirubin 1.5 mg/dl (0.2-1.0) H 07/20/23 16:50 AST 66 U/L (13-39) H 07/20/23 16:50 ALT 55 U/L (7-52) H 07/20/23 16:50 Alkaline Phosphatase 52 U/L (34-104) 07/20/23 16:50 Troponin I High Sens 17.6 pg/ml (0-14) H 07/20/23 16:50 Total Protein 7.6 gm/dl (6.0-8.3) 07/20/23 16:50 Albumin 4.2 gm/dl (3.4-5.0) 07/20/23 16:50 Globulin 3.4 gm/dl (2.5-4.0) 07/20/23 16:50 Albumin/Globulin Ratio 1.2 (0.9-2) 07/20/23 16:50 TSH 1.811 uIu/ml (0.300-4.500) 07/20/23 16:50 Adenovirus (PCR) Not Detected (NotDetected) 07/20/23 16:51 B. pertussis DNA (PCR) Not Detected (NotDetected) 07/20/23 16:51 B.parapertussis DNA PCR Not Detected (NotDetected) 07/20/23 16:51 C. pneumoniae DNA (PCR) Not Detected (NotDetected) 07/20/23 16:51 Coronavirus OC43 (PCR) Not Detected (NotDetected) 07/20/23 16:51 Coronavirus HKU1 (PCR) Not Detected (NotDetected) 07/20/23 16:51 Coronavirus 229E (PCR) Not Detected (NotDetected) 07/20/23 16:51 SARS-CoV-2 (PCR) Not Detected (NotDetected) 07/20/23 16:51 Coronavirus NL63 (PCR) Not Detected (NotDetected) 07/20/23 16:51 Human Metapneumovir PCR Not Detected (NotDetected) 07/20/23 16:51 Influenza Type A (PCR) Not Detected (NotDetected) 07/20/23 16:51 Influenza Type B (PCR) Not Detected (NotDetected) 07/20/23 16:51 M. pneumoniae (PCR) Not Detected (NotDetected) 07/20/23 16:51 Parainfluenza 1 (PCR) Not Detected (NotDetected) 07/20/23 16:51 Parainfluenza 2 (PCR) Not Detected (NotDetected) 07/20/23 16:51 Parainfluenza 3 (PCR) Not Detected (NotDetected) 07/20/23 16:51 Parainfluenza 4 (PCR) Not Detected (NotDetected) 07/20/23 16:51 RSV (PCR) Not Detected (NotDetected) 07/20/23 16:51 Entero/Rhino (PCR) Not Detected (NotDetected) 07/20/23 16:51 Impressions Chest X-Ray 07/20/23 16:21 XR chest 1V portable CLINICAL HISTORY: dyspnea, cough, fever COMPARISON STUDY: No previous studies for comparison. FINDINGS: Apparent left lung volume loss may be due to a rotated study. Moderate left mid and basilar airspace opacity is present. Right lung is clear. There is no evidence for pulmonary edema. Azygos fissure is noted. There is no pneumo thorax or pleural effusion. IMPRESSION: Airspace opacities within the left mid and lower lung. The findings favor pneumonia. Post radiographs to ensure resolution and exclude the possibility of underlying pulmonary lesion are recommended. ACT 112: Positive. There are findings on this exam that require communication between the performing entity and the patient following Patient Test Result Information Act ([place] Act 112) guidelines. Electronically signed by: Ebenezer Carroll M.D. 07/20/2023 5:[address] 07/20/23 17:26 CT OF THE CHEST WITH IV CONTRAST CLINICAL HISTORY: Shortness of breath. COMPARISON STUDY: Chest radiograph performed earlier today. TECHNIQUE: Following IV administration of 86 mL of Optiray, helical axial images of the chest were obtained. Sagittal and coronal reconstructions were viewed as well as maximal intensity projections on an independent 3-D workstation. Automated exposure control was utilized for the study. A dose lowering technique was utilized adhering to the principles of ALARA. CT DOSE: 1248.32 mGy.cm FINDINGS: Lungs are suboptimally assessed due to respiratory motion. There is extensive left upper lobe consolidation, predominantly within the lingula. Central airways are patent. There is no cavitation. There is a trace left pleural effusion. Severe emphysema is present. There is no consolidation within the right lung. Azygos fissure is incidentally noted. Right middle lobe linear density favors atelectasis. No acute fractures within the bony thorax are noted. There is a prominent AP window lymph node on image 77 of 233 measures 1 cm. Mild cardiomegaly is noted. There is no pericardial effusion. Visualized portions of the upper abdomen demonstrate mild fluid adjacent to the left adrenal gland and upper pole of the left kidney. No convincing evidence for pancreatitis within visualized portions of the abdomen. IMPRESSION: 1. Extensive lingular consolidation suggestive of pneumonia. A follow-up chest CT in 1 to 2 months to ensure resolution is recommended. Trace left pleural effusion. 2. Severe emphysema. 3. Prominent AP window lymph node. This is likely reactive but should be assessed on follow-up CT. 4. Mild fluid adjacent to left adrenal gland and upper pole of the left kidney. This finding is nonspecific. ACT 112: Positive. There are findings on this exam that require communication between the performing entity and the patient following Patient Test Result [place] Act ([place] Act 112) guidelines. Electronically signed by: Ebenezer Carroll M.D. 07/20/2023 6:[address] 07/20/23 17:26 CT OF THE HEAD WITHOUT CONTRAST CLINICAL HISTORY: Altered mental status. COMPARISON STUDY: No previous studies for comparison. TECHNIQUE: Helical axial images of the head were obtained without IV contrast. Automated exposure control was utilized for the study. A dose lowering technique was utilized adhering to the principles of ALARA. FINDINGS: No acute intracranial hemorrhage, midline shift or mass effect is present. The ventricular system is unremarkable. The basal cisterns are patent. No extra-axial collections are present. There are no findings to suggest acute dural sinus thrombosis or acute territorial infarct. White matter hypodensity suggests small vessel disease. No significant calvarial abnormalities are present. Visualized portions of the sinuses and mastoid air cells are clear. IMPRESSION: No acute intracranial findings. ACT 112: Negative or not required by law. Electronically signed by: Ebenezer Carroll M.D. 07/20/2023 6:49 PM Diagnostic Findings EKG as per my interpretation : Rate 110, sinus tachycardia, LAD, LSB, LVH, T wave abnormalities inferior leads
[2023-07-20] MEDS ORDERED: hydrOXYzine HCl 10 MG TAB PO PRN (20:37)
[2023-07-20] MEDS ORDERED: oxyCODONE HCL IR 5 MG TAB (IMMEDIATE RELEASE) PO PRN (20:37)
[2023-07-20] MEDS ORDERED: PROMETHAZINE HCL 6.25 MG in SODIUM CHLORIDE 0.9% 50 ML IV PRN (20:37)
[2023-07-20] MEDS: NICOTINE 14 MG/24 HR PATCH TD SCH (21:13)
[2023-07-20 21:18] LABS: Partial Thromboplastin Ratio 1.1; Partial Thromboplastin Time 30.8 Seconds (21.0-31.0)
[2023-07-20 21:19] LABS: Troponin I High Sensitivity 28.5 pg/ml (0-14)
[2023-07-20] MEDS ORDERED: LEVALBUTEROL 1.25 MG/3 ML NEB ONE (21:26)
[2023-07-20] MEDS ORDERED: CEFEPIME 2,000 MG in SYRINGE 0 ML IV SCH (22:00)
--- OUTSIDE RECORDS SUMMARY | 2023-07-20 22:58 | External Medical Summary | Summary of Care ---
Author Name Unknown Organization [facility] Address [address] [facility] [place] [address] Phone [phone] Care Team Providers Care Financial Planning Analyst Name Role Phone Lilly Thorne MD Primary Care Provider [phone] Reason for Visit * Reason Comments Follow Up Encounter Details Date Type Department Care Team (Late st Contact Info) Description 07/01/2023 2:00 PM EST Office Visit Cardiology, [facility] [address] [facility] [place] [phone] Linda Parker PA-C [address] [facility] [place] [address] Palpitations*; Paroxysmal SVT (supraventricular tachycardia); HTN, goal below 130/80 Allergies Active Allergy Reactions Criticality Noted Date Comments Ivp Dye Anaphylaxis High 10/05/1998 anaphylactic RX Nickel 02/29/2020 Nickel earrings-redness , swelling documented as of this encounter (statuses as of 07/01/2023) Medications Medication Sig Dispensed Refills Start Date End Date Status Naproxen Sodium 220 MG Oral Tablet Take 1 Tablet by mouth. 2 tabs every 12 hours as needed for pain 0 Active Fexofenadine HCl 180 MG Oral Tablet (Nguyen) Take 1 Tablet by mouth in the morning. 0 Active Metamucil Smooth Texture 58.6 % Oral Powder (Psyllium)Indicat ions:Loose stools One scoop in 8 ounces of water daily, may inc up to three times a day.-st 03/20/2021 0 03/20/2021 Active Additional Information Patient taking differently: PRN, Constipation, One scoop in 8 ounces of water daily, may inc up to three times a day.-st 03/20/2021, Reported on 06/03/2023 Omeprazole 20 MG Oral Capsule Delayed Release (PriLOSEC)Indicat ions:Gastroesopha geal reflux disease, unspecified whether esophagitis present,Esophagea l dysphagia,Encount er for long-term (current) use of medications TAKE 1 CAPSULE BY MOUTH EVERY DAY 1 HOUR BEFORE THE FIRST MEAL 90 Capsule 3 08/05/2022 Active Ventolin HFA 108 (90 Base) MCG/ACT Inhalation Aerosol SolutionIndicatio ns:COPD, moderate (HCC) INHALE 2 PUFFS BY MOUTH EVERY 4 HOURS NEEDED FOR COUGH, SHORTNESS OF BREATH OR WHEEZING. 18 g 1 09/03/2022 Active Hydroxychloroquin e Sulfate 200 MG Oral Tablet (Plaquenil)Indica tions:Rheumatoid arthritis involving multiple sites with positive rheumatoid factor (HCC) Take 1.5 Tablets by mouth at bedtime. 180 Tablet 1 12/03/2022 Active Folic Acid 1 MG Oral TabletIndications :Rheumatoid arthritis involving multiple sites with positive rheumatoid factor (HCC) Take 3 Tablets by mouth in the morning. 270 Tablet 4 12/03/2022 Active Leflunomide 10 MG Oral Tablet (Arava)Indication s:Rheumatoid arthritis involving multiple sites with positive rheumatoid factor (HCC) Take 1 Tablet by mouth in the morning. 90 Tablet 1 01/03/2023 Active Metoprolol Succinate ER 25 MG Oral Tablet Extended Release 24 Hour (toPROL XL)Indications:Pa roxysmal SVT (supraventricular tachycardia) TAKE 1 TABLET BY MOUTH EVERY DAY 30 Tablet 11 04/15/2023 Active Escitalopram Oxalate 10 MG Oral Tablet (Lexapro) Take 1.5 Tablets by mouth in the morning. 45 Tablet 2 05/13/2023 Active buPROPion HCl ER (SR) 200 MG Oral Tablet Extended Release 12 Hour (Wellbutrin SR) Take one pill in the morning and one pill around 3pm. 60 Tablet 4 05/24/2023 Active dilTIAZem HCl ER Coated Beads 240 MG Oral Capsule Extended Release 24 Hour (Cardizem CD)Indications:HT N, goal below 140/90,Paroxysmal SVT (supraventricular tachycardia) Take 1 Capsule by mouth in the morning. 90 Capsule 3 06/03/2023 Active Trelegy Ellipta 100-62.5-25 MCG/ACT Aerosol Powder Breath Activated (Fluticasone-Umec lidinium-Vilanter ol)Indications:CO PD, moderate (HCC),Pulmonary emphysema, unspecified emphysema type (HCC) INHALE 1 PUFF BY MOUTH DAILY 60 Each 5 06/03/2023 Active Rinvoq 15 MG Oral Tablet Extended Release 24 Hour (Upadacitinib ER) Take 1 Tablet by mouth in the morning. 30 Tablet 5 06/25/2023 Active Klor-Con M10 10 MEQ Oral Tablet Extended Release Take 1 Tablet by mouth in the morning. 0 06/13/2023 Active Losartan Potassium 100 MG Oral Tablet (Cozaar) Take 1 Tablet by mouth in the morning. TAKE 1 TABLET BY MOUTH EVERY DAY IN THE MORNING. 90 Tablet 3 07/01/2023 Active Losartan Potassium 50 MG Oral Tablet (Cozaar)Indicatio ns:HTN, goal below 140/90 TAKE 1 TABLET BY MOUTH EVERY DAY IN THE MORNING 90 Tablet 1 06/03/2023 3 Discontinue d(Refill) Hospital, Clinic, or Other Facility Administered Medication Ordered Dose Route Frequency Start Date End Date Status Albuterol Sulfate (Proventil) (2.5 MG/3ML) 0.083% inhalation solution 2.5 mgIndications:COPD, moderate (HCC),Pulmonary emphysema, unspecified emphysema type (HCC) 2.5 mg NEBULIZER PRN 06/03/2023 06/02/2024 Acti ve documented as of this encounter (statuses as of 07/01/2023) Active Problems Problem Noted Date Diagnosed Date COPD, group B, by GOLD 2017 classification 04/01 Overview: Per COPD GOLD Classification Primary osteoarthritis of fi rst carpometacarpal joint of right hand 01/17/2022 Major depressive disorder, recurrent episode, mo derate 07/03/2021 ADHD (attention deficit hype ractivity disorder), combined type 07/03/2021 Panic disorder with agoraphobia and mild panic a ttacks 07/03/2021 Pulmonary emphysema 05/01/2021 History of tobacco use 10/19/2019 Overview: Quit 06/06 History of abnormal cervical Pap smear 0 Overview: 06/2014 Encounter for long-term (current) use of medicat ions 10/19/2019 Paroxysmal SVT (supraventricular tachycardia) Paresthesias in left hand 12/28/2018 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 Tobacco use disorder 06/29/2014 Rheumatoid arthritis involvi ng multiple sites with positive rheumatoid factor 10/30/2013 documented as of this encounter (statuses as of 07/01/2023) Resolved Problems Problem Noted Date Diagnosed Date Resolved Date 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 01/17/2022 01/18/20 22 COPD, moderate 10/26/2019 04/04/2023 Overview: Per COPD GOLD Classification Encounter for screening mamm ogram for breast cancer 10/19/2019 06/28/2020 Screen for colon cancer 10/19/201906/19 Overview: 03/07--sig tics--rpt 10 yrs Palpitations 12/28/2018 10/19/2019 Encounter for long-term (cur rent) use of high-risk medication 04/06/2016 06/28/2020 COPD, moderate 06/29/2014 10/29/2019 Overview: Per COPD GOLD Classification Migraine without aura 09/17/20112015 Acute cystitis 12/13/2009 07/28/2011 Asthma with severity to be determined 02/16/2008 08/15/2011 Overview: ICD-10 update of inactive term Anxiety state 02/16/2008 12/28/2018 Intermittent asthma with rel iever use up to twice per week 02/16/2008 06/29/2014 Overview: Per Provider Protocol. ADVANCE DIRECTIVE INFORMATION 03/11/2006 12/28/2018 Overview: Pt has brochure from previous visit. Major depressive disorder 03/11/2006 Overview: ICD-10 update of inactive term Carpal tunnel syndrome 10/23/200207/24 documented as of this encounter (statuses as of 07/01/2023) Immunizations Name Administration Dates Next Due Covid-19 Ad26, Single Dose (Edson/J&J) 01/19/2021 Hepatitis B, 20+ yrs 06/03/2023,10/30/2021,05/01 PPD 01/20/2007 Pneumococcal Conjugate Vacc, 13 Valent (Prevnar) 03/02/2019 Pneumococcal Polysaccharide PPV23 (Pneumovax) 09/09/2015,10/11/2009 SEASONAL INFLUENZA, PF, 6 M & Above, IM , (FLULAVAL or FLUZONE) 06/28/2020,07/07/2019 Seasonal Influenza, Quadriva lent, No Preserve, IM 07/24/2016,06/30/2015 Seasonal Influenza, Split, I IV3, With Preserve, Inj 06/14/2014,05/02/2013,06/18/2011,06/05,10/11/2009 TD, Preservative Free 06/28/2020 TDAP (age 11 and older)(Adacel) 02/24/2010 Zoster Vaccine Recombinant (Shingrix) 02/01/2020 ,10/19/2019 documented as of this encounter Social History Tobacco Use Types Packs/Day Years Used Date Smoking Tobacco: Every Day Cigarettes 1 39 Smokeless Tobacco: Never Alcohol Use Standard Drinks/Week Comments Yes 0 (1 standard drink = 0.6 oz pur e alcohol) social AUDIT-C Answer Date Recorded Frequency of Alcohol Consumption 2-3 times a wee k 12/28/2018 Average Number of Drinks 1 or 2 019 Frequency of Binge Drinking Not on file 12/17 PHQ-2 Answer Date Recorded PHQ Adult Total Score 0 07/18/2022 Hunger Vital Sign Answer Date Recorded Within the past 12 months, y ou worried that your food would run out before you got the money to buy more. Never true 03/18/20 23 Within the past 12 months, t he food you bought just didn't last and you didn't have money to get more. Never true 03/18/2023 Sex and Gender Information Value Date Recorded Sex Assigned at Female 07/14/2019 2:26 PM EST Gender Identity Female 07/14/2019 2:26 PM EST Sexual Orientation Straight 07/14/2019 2: 26 PM EST Job Start Date Occupation Industry Not on file Not on file Not on file documented as of this encounter Last Filed Vital Signs Vital Sign Reading Time Taken Comments Blood Pressure 168/110 07/01/2023 2:04 PM EST Pulse 80 07/01/2023 2:04 PM EST Temperature - - Respiratory Rate 14 07/01/2023 2:04 PM EST Oxygen Saturation - - Inhaled Oxygen Concentration - - Weight 64.9 kg (143 lb) 07/01/2023 2:04 PM EST Height - - Body Mass Index 26.16 06/03/2023 9:54 AM EDT documented in this encounter Patient Instructions * Patient Instructions* Linda Parker PA-C - 07/01/2023 2:38 PM EST Increase losartan to 100 mg daily. Patient was educated to check blood pressure and heart rate 1-2 hours after morning medications, orif they are feeling poorly. Patient is to record these readings and call in 1 week with results. documented in this encounter Progress Notes * Linda Parker PA-C - 07/01/2023 2:00 PM EST 07/01/2023 Cardiology Follow Up Primary Neonatal Social Worker Dr. Navas Past medical history: Paroxysmal supraventricular tachycardia Hypertension COPD Rheumatoid arthritis, on methotrexate HPI: Trudi Amezcua (Rene) is a 58 year old female who presents today for cardiology follow up. Last evaluated in clinic 06/2021 by MIGUE Sim. Presents today overall feeling well. Notes heart racing most mornings when she wakes up, similar toprevious. Not sure if they go away completely, but seems to notice them less throughout the day. Concerned as her sister had a "cardiac event" last month where her heart was beating fast and she collapsed, now has ICD, unsure exact diagnosis. Blood pressure has been elevated, does not check at home, but does have blood pressure cuff. Compliant with medications, occasionally will miss a dose, took all medications this morning. Denies chestpain, shortness of breath, edema, PND, orthopnea, lightheadedness, syncope. She notes that she has increased life stressors as her adult son has moved back in with her and herhusband. Alcohol intake has increased because of this, she drinks 1-3 drinks nightly. Smokes less than 1 ppd, trying to cut back. Denies supplement and drug use. Drinks 2 large bottles of water a day, denies caffeine use. Works at [employer]. REVIEW OF SYSTEMS: See HPI for pertinent positives. All others negative other than those noted in the HPI. CONSTITUTIONAL: No change in weight, No weakness, No fatigue and No fevers, No sweats or chills. PULMONARY: No cough, sputum, or hemoptysis, No wheezing, No shortness of breath and No recent change in breathing. CARDIOVASCULAR: No chest pain, No dyspnea on exertion, No edema, + palpitations and No syncope. GASTROINTESTINAL: No abdominal pain, No change in bowel habits, No significant heartburn, No nausea, No vomiting, No diarrhea, No constipation, No blood in stools or black tarry stools. No dysphagia. HEMATOLOGIC: No abnormal bleeding and No bruising. NEUROLOGICAL: Normal balance, No headaches and No weakness. Review of patient's allergies indicates: Allergen Reactions Ivp Dye Anaphylaxis anaphylactic RX Nickel Nickel earrings-redness , swelling Current Outpatient Medications Medication Sig Dispense Refill Naproxen Sodium 220 MG Oral Tablet Take 1 Tablet by mouth. 2 tabs every 12 hours as needed for pain Omeprazole 20 MG Oral Capsule Delayed Release (PriLOSEC) TAKE 1 CAPSULE BY MOUTH EVERY DAY 1 HOUR BEFORE THE FIRST MEAL 90 Capsule 3 Ventolin HFA 108 (90 Base) MCG/ACT Inhalation Aerosol Solution INHALE 2 PUFFS BY MOUTH EVERY 4 HOURS NEEDED FOR COUGH, SHORTNESS OF BREATH OR WHEEZING. 18 g 1 Hydroxychloroquine Sulfate 200 MG Oral Tablet (Plaquenil) Take 1.5 Tablets by mouth at bedtime. 180Tablet 1 Folic Acid 1 MG Oral Tablet Take 3 Tablets by mouth in the morning. 270 Tablet 4 Leflunomide 10 MG Oral Tablet (Arava) Take 1 Tablet by mouth in the morning. 90 Tablet 1 Metoprolol Succinate ER 25 MG Oral Tablet Extended Release 24 Hour (toPROL XL) TAKE 1 TABLET BY MOUTH EVERY DAY 30 Tablet 11 Escitalopram Oxalate 10 MG Oral Tablet (Lexapro) Take 1.5 Tablets by mouth in the morning. 45 Tablet 2 buPROPion HCl ER (SR) 200 MG Oral Tablet Extended Release 12 Hour (Wellbutrin SR) Take one pill in the morning and one pill around 3pm. 60 Tablet 4 dilTIAZem HCl ER Coated Beads 240 MG Oral Capsule Extended Release 24 Hour (Cardizem CD) Take 1 Capsule by mouth in the morning. 90 Capsule 3 Trelegy Ellipta 100-62.5-25 MCG/ACT Aerosol Powder Breath Activated (Bajntpxpwya-Rggwqfiuqspo-Fsstceidid) INHALE 1 PUFF BY MOUTH DAILY 60 Each 5 Rinvoq 15 MG Oral Tablet Extended Release 24 Hour (Upadacitinib ER) Take 1 Tablet by mouth in the morning. 30 Tablet 5 Klor-Con M10 10 MEQ Oral Tablet Extended Release Take 1 Tablet by mouth in the morning. Losartan Potassium 100 MG Oral Tablet (Cozaar) Take 1 Tablet by mouth in the morning. TAKE 1 TABLETBY MOUTH EVERY DAY IN THE MORNING. 90 Tablet 3 Fexofenadine HCl 180 MG Oral Tablet (Nguyen) Take 1 Tablet by mouth in the morning. Metamucil Smooth Texture 58.6 % Oral Powder (Psyllium) One scoop in 8 ounces of water daily, may inc up to three times a day.-st 03/20/2021 (Patient taking differently: as needed for Constipation. One scoop in 8 ounces of water daily, may inc up to three times a day.-st 03/20/2021) Current Facility-Administered Medications Medication Dose Route Frequency Provider Last Rate Last Admin Albuterol Sulfate (Proventil) (2.5 MG/3ML) 0.083% inhalation solution 2.5 mg 2.5 mg Nebulizer PRN Lilly Thorne MD 2.5 mg at 06/10/23 1002 Past Medical History: Diagnosis Date ANXIETY STATE NOS 02/16/2008 Arthritis, rheumatoid ([facility]) 10/30/2013 Asthma, allergic Carpal tunnel syndrome 10/23/2002 COPD, group A, by GOLD 2017 classification ([facility]) 10/26/2019 Per COPD GOLD Classification DEPRESSIVE DISORDER NEC 03/11/2006 Dysplasia of cervix, low grade (MANN 1) 07/2014 Dysthymic disorder On Wellbutrin Erythema nodosum 09/2010 History of tobacco use 10/19/2019 Quit 06/06 Intermittent asthma with reliever use up to twice per week 02/16/2008 Per Provider Protocol. 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 Employer: [employer] Comment: [employer] Tobacco Use Smoking status: Every Day Packs/day: 1.00 Years: 39.00 Additional pack years: 0.00 Total pack years: 39.00 Types: Cigarettes Smokeless tobacco: Never Vaping Use Vaping Use: Never used Substance and Sexual Activity Alcohol use: Yes Comment: social Drug use: No Sexual activity: Yes Partners: Male control/protection: Surgical Comment: tubal Social History Narrative [employer] INFORMATION ENVIRONMENTAL HISTORY: Type of Home: Bilevel Type of Heating System: Electric Air Conditioning: Yes Patient's bedroom and Kitchen Basement: Finished, Carpeted rooms, Dampness, Water Problems and Mold, mildew Home have cockroaches: No Irritants in the home: None Patient's bedroom location: Floor: second Type of leonie: Carpeting Beds: Number: 1 Type of beds: Mattress Pillows: Number: 2 Type of pillows: Foam Bedroom contains: Minimal items Pets: 1 dog(s) and 1 hamster(s) [place] farm: 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 Entered by: Silvano Armas MD 02/16/2008 Social Determinants of Health Food Insecurity: No Food Insecurity (03/18/2023) Hunger Vital Sign Worried About Running Out of Food in the Last Year: Never true Ran Out of Food in the Last Year: Never true OBJECTIVE/PHYSICAL EXAMINATION: BP 168/110 | Pulse 80 | Resp 14 | Wt 64.9 kg (143 lb) | LMP 06/28/2011 | BMI 26.16 kg/m | BSA 1.69 m BP on recheck: 158/102 General: No acute distress. A+Ox3. HEENT: Normocephalic. Atraumatic. PERRL. EOMI. Conjunctiva and sclera clear. NECK: No carotid bruits. No JVD. Carotid upstrokes are brisk. Heart: RRR. S1 and S2 noted. No murmur. No rubs or gallops. PMI non displaced. Lungs: Clear to auscultation. No wheezes. No rhonchi. No rales. Abdomen: Normal bowel sounds. Soft. Nontender. No masses or organomegaly. No abdominal bruits. Extremities: No edema. No clubbing or cyanosis. Pulses: radial=2/4, posterior tibial=2/4, dorsalis pedis = 2/4. NEURO: No focal deficits. PSYCH: Appropriate affect and insight. DATA Labs & Imaging Reviewed Below: EKG 07/01/23 Normal sinus rhythm, 68 bpm Nuclear stress 01/09/2021 Normal combined low intensity exercise/Lexiscan myocardial perfusion imaging study with no evidenceof infarction or inducible ischemia. Gated SPECT imaging reveals normal myocardial thickening and wall motion. The left ventricular ejection fraction was calculated to be 63%. Echo 01/09/2021 The examination is adequate to evaluate the referral indication. There was normal sinus rhythm during the examination. The LV wall thickness is normal. The left ventricular wall motion is normal. Calculated LV ejection Fraction = 60% (bi-plane method of discs). Trace mitral regurgitation is present. The left ventricular diastolic function is normal. Zio 10/2020 Preliminary Findings Patient had a min HR of 57 bpm, max HR of 203 bpm, and avg HR of 85 bpm. Predominant underlying rhythm was Sinus Rhythm. 1 run of Ventricular Tachycardia occurred lasting 14 beats with a max rate of 203 bpm (avg 189 bpm). 1 run of Supraventricular Tachycardia occurred lasting 10 beats with a max rate of 158 bpm (avg 133 bpm). Isolated SVEs were rare (<1.0%), SVE Couplets were rare (<1.0%), and no SVE Triplets were present. Isolated VEs were rare (<1.0%), VE Couplets were rare (<1.0%), and no VE Triplets were present. ASSESSMENT/PLAN: 58 year old year old female 1. Palpitations 2. Paroxysmal SVT (supraventricular tachycardia) - palpitations most mornings when waking up, sister with recent cardiac event and possible arrhythmia, increased life stressors and alcohol intake - symptoms likely SVT as similar to past symptoms, but will order Zio to assess for arrhythmia - continue diltiazem, metoprolol - recommend staying well hydrated, decrease alcohol intake, find stress coping mechanisms 3. HTN, goal below 130/80 - elevated on today's reading, on chart review, has been above goal - increase losartan to 100 mg daily - repeat BMP in one week - patient to monitor blood pressure at home and call office with readings in one week - discussed smoking cessation, patient trying to cut back, not interested in patches, gum, pills DISPOSITION: Follow up 1 month or sooner if symptoms worsen/fail to improve. All questions were answered to the patients satisfaction. Patient advised to report to ED with any and all emergencies. The patient agrees to the above plan and will call with additional questions or concerns. Linda Parker PA-C [facility] [address] [facility] [address] I spent a total of 40 minutes on the date of service in preparation, delivery, and documentation ofthe care provided to Trudi AMEZCUA excluding any time spent in the performance of separately billed services. This chart was completed in part utilizing [employer] Speech Voice Recognition Software. Grammatical errors, random word insertions, pronoun errors, and incomplete sentences are an occasional consequence of this system due to software limitations, ambient noise, and hardware issues. Any formal questions or concerns about the content, text, or information contained within the body of this dictation should be directly addressed to the provider for clarification. documented in this encounter Nursing Notes * Summer Young LPN - 07/01/2023 2:03 PM EST Examination Room: 3 Name: Trudi AMEZCUA Date of : 1965 Reason for Visit: Follow up Problems/Concerns: Concern regarding sister recent cardiac event Interim Hosp(s): denies Chest Pain/SOB: denies MyChart Discussed: ALREADY ACTIVE Patient was instructed to not get up on the exam table until directed and assisted by their provider; patient is to remain seated in the chair/ wheelchair/ exam table for fall prevention and safety reasons. Patient is aware to have assistance to step down off exam table with personnel. documented in this encounter Plan of Treatment Upcoming Encounters Date Type Department Care Team (Late st Contact Info) Description 07/17/2023 9:00 AM EST Office Visit Orthopaedics [facility] [address] [facility] [place] [address] Hunter Bangura PA-C [address] [place] [address] 07/26/2023 10:15 AM EST NeuroDiagnostic Study Neurophysiology [facility] [address] [facility] [place] [address] Bolivar Cardenas MD [address] [facility] [place] [address] 08/13/2023 1:30 PM EST Office Visit Cardiology, [facility] [address] [facility] [place] [address] Linda Parker PA-C [address] [facility] [place] [address] 09/02/2023 12:20 PM EST Office Visit General Internal Medicine [facility] [address] [facility] [place] [address] Lilly Thorne MD [address] [facility] [place] [address] 09/16/2023 9:45 AM EST Office Visit [facility]ology [facility] [place] [address] Rocky Hines DO [address] [place] [address] 03/16/2024 3:20 PM EDT Office Visit Rheumatology [facility] [address] [facility] [address] Shahriar Trivedi MD [address] [place], [place] [address] 07/06/2024 1:00 PM EST Office Visit Gynecology/Obstetric s Nazario Crouch [address] [place] [address] Mary Schreiber PA-C [address] [place] [id number] Scheduled Orders Name Type Priority Associated Diagnoses Orde r Schedule EKG EKG Routine Paroxysmal SVT (supraventricular tachycardia) HTN, goal below 130/80 Ordered: 07/01/2023 EXTERNAL EKG 8 TO 15 DAYS Holter Routine Paroxysmal SVT (supraventricular tachycardia) HTN, goal below 130/80 Expected: 07/02/2023 (Approximate), Expires: 07/01/2024 BASIC METABOLIC PANEL Lab Routine Paroxysmal SVT (supraventricular tachycardia) HTN, goal below 130/80 Expected: 07/08/2023, Expires: 07/01/2024 Scheduled Procedures Name Priority Associated Diagnoses Date/Ti me COLONOSCOPY FLEXIBLE PROXIMA L DIAGNOSTIC Recall Special screening for malignant neoplasms, colon Health Maintenance Due Date Last Done Comments DISCUSS TOBACCO CESSATION (REFER TO SMARTSET #[id number]) 1965 HIV Screening 1980 HPV/Co-Test 1995 Fecal Occult Blood Test 2010 Sigmoidoscopy 2010 COVID-19 Vaccine (2 - Edson risk series) 02/16/2021 01/19/2021 Cologuard 12/28/2021 12/28/2018 Mammogram 01/29/2023 01/29/2022, 0602/2021, 01/18/2020, Additional history exists Influenza Vaccine (FLU shot) (#1) 2023 06/28/2020, 07/07/2019, 07/24/2016, Additional history exists Depression Screening 07/18/2023 07/18/2022 Cervical Cancer Screening 11/08/2023 Pap Smear 11/08/2023 11/07/2020, 06/19, 06/30/2015, Additional history exists O2 ASSESSMENT COMPLETED IN PAST YEAR FOR COPD 06/03/2024 06/03/2023 Diabetes Screening 06/10/2026 06/10/2023, 0 03/20/2023, 12/03/2022, Additional history exists Lipid Panel 06/10/2028 06/10/2023, 06/20, 01/05/2019, Additional history exists Colonoscopy 03/07/2030 03/07/2020, 03/07/2020 Colorectal Cancer Screening 03/07/2030 Pneumococcal Vaccine: Pediatrics (0 to 5 Years) and At-Risk Patients (6 to 64 Years) (4 - PPSV23 or PCV20) 2030 03/02/2019, 09/09/2015, 10/11/2009 DTaP,Tdap,and Td Vaccines (3 - Td or Tdap) 06/28/2030 06/28/2020, 02/24/2010 Zoster Vaccines Completed 02/01/2020, 10/19/2019 LUNG CANCER SCREENING - USE SMARTSET [id number] Completed 03/27/2021 Hepatitis B Completed 06/03/2023, 10/17, 05/01/2021 Alpha-1 Antitrypsin Completed 06/10/2023 GARDASIL-HPV IMMUNIZATION SERIES Aged Out No longer eligible based on patient's age to complete this topic MENINGOCOCCAL (MENACTRA/MENVEO) Aged Out No longer eligible based on patient's age to complete this topic documented as of this encounter Medical Devices Not on filedocumented as of this encounter Visit Diagnoses Diagnosis Palpitations- Primary Paroxysmal SVT (supraventricular tachycardia) Paroxysmal supraventricular tachycardia HTN, goal below 130/80 Unspecified essential hypertension documented in this encounter Care Teams Financial Planning Analyst Relationship Specialty Start Date End Date Lilly Tohrne MD [address] [facility] [place] [id number] PCP - General Internal Medicine 10/19/19 documented as of this encounter
--- OUTSIDE RECORDS SUMMARY | 2023-07-20 22:58 | External Medical Summary | Summary of Care ---
Author Name Unknown Organization [facility] [address] [address] Phone [phone] Care Team Providers Care Survey Technician Name Role Phone Lilly Thorne MD Primary Care Provider [phone] Reason for Visit * Reason Comments Acute Encounter Details Date Type Department Care Team (Late st Contact Info) Description 07/20/2023 3:40 PM EST Office Visit Family Practice [facility] [address] [facility] [place] [address] Jung García MD [address] [place] [address] CHRISTOPHER (dyspnea on exertion)*; SOB (shortness of breath); Acute cough Allergies Active Allergy Reactions Criticality Noted Date Comments Ivp Dye Anaphylaxis High 10/05/1998 anaphylactic RX Nickel 02/29/2020 Nickel earrings-redness , swelling documented as of this encounter (statuses as of 07/20/2023) Medications Medication Sig Dispensed Refills Start Date End Date Status Naproxen Sodium 220 MG Oral Tablet Take 1 Tablet by mouth. 2 tabs every 12 hours as needed for pain 0 Active Fexofenadine HCl 180 MG Oral Tablet (Nguyen) Take 1 Tablet by mouth in the morning. 0 Active Metamucil Smooth Texture 58.6 % Oral Powder (Psyllium)Indicatio ns:Loose stools One scoop in 8 ounces of water daily, may inc up to three times a day.-st 03/20/2021 0 03/20/2021 Active Additional Information Patient taking differently: PRN, Constipation, One scoop in 8 ounces of water daily, may inc up to three times a day.-st 03/20/2021, Reported on 06/03/2023 Omeprazole 20 MG Oral Capsule Delayed Release (PriLOSEC)Indicatio ns:Gastroesophageal reflux disease, unspecified whether esophagitis present,Esophageal dysphagia,Encounter for long-term (current) use of medications TAKE 1 CAPSULE BY MOUTH EVERY DAY 1 HOUR BEFORE THE FIRST MEAL 90 Capsule 3 08/05/2022 Active Ventolin HFA 108 (90 Base) MCG/ACT Inhalation Aerosol SolutionIndications :COPD, moderate (HCC) INHALE 2 PUFFS BY MOUTH EVERY 4 HOURS NEEDED FOR COUGH, SHORTNESS OF BREATH OR WHEEZING. 18 g 1 09/03/2022 Active Hydroxychloroquine Sulfate 200 MG Oral Tablet (Plaquenil)Indicati ons:Rheumatoid arthritis involving multiple sites with positive rheumatoid factor (HCC) Take 1.5 Tablets by mouth at bedtime. 180 Tablet 1 12/03/2022 Active Folic Acid 1 MG Oral TabletIndications:R heumatoid arthritis involving multiple sites with positive rheumatoid factor (HCC) Take 3 Tablets by mouth in the morning. 270 Tablet 4 12/03/2022 Active Leflunomide 10 MG Oral Tablet (Arava)Indications: Rheumatoid arthritis involving multiple sites with positive rheumatoid factor (HCC) Take 1 Tablet by mouth in the morning. 90 Tablet 1 01/03/2023 Active Metoprolol Succinate ER 25 MG Oral Tablet Extended Release 24 Hour (toPROL XL)Indications:Paro xysmal SVT (supraventricular tachycardia) TAKE 1 TABLET BY [...] Oral Capsule Extended Release 24 Hour (Cardizem CD)Indications:HTN, goal below 140/90,Paroxysmal SVT (supraventricular tachycardia) Take 1 Capsule by mouth in the morning. 90 Capsule 3 06/03/2023 Active Trelegy Ellipta 100-62.5-25 MCG/ACT Aerosol Powder Breath Activated (Fluticasone-Umecli dinium-Vilanterol)I ndications:COPD, moderate (HCC),Pulmonary emphysema, unspecified emphysema type (HCC) [...] THE MORNING. 90 Tablet 3 07/01/2023 Active Hospital, Clinic, or Other Facility Administered Medication Ordered Dose Route Frequency Start Date End Date Status Albuterol Sulfate (Proventil) (2.5 MG/3ML) 0.083% inhalation solution 2.5 mgIndications:COPD, moderate (HCC),Pulmonary emphysema, unspecified emphysema type (HCC) 2.5 mg NEBULIZER PRN 06/03/2023 06/02/2024 Acti ve documented as of this encounter (statuses as of 07/20/2023) Active Problems Problem Noted Date Diagnosed Date [...] as of this encounter (statuses as of 07/20/2023) Resolved Problems Problem Noted Date Diagnosed Date [...] as of this encounter (statuses as of 07/20/2023) Immunizations Name Administration Dates Next Due Covid-19 [...] Day Cigarettes 1 39 Smokeless Tobacco: Never Tobacco Cessation:Ready to Q uit: No; Counseling Given: Yes Alcohol Use Standard Drinks/Week Comments Yes 0 [...] Sign Reading Time Taken Comments Blood Pressure 98/54 07/20/2023 3:50 PM EST Pulse 122 07/20/2023 3:50 PM EST Temperature 39.8 C (103.7 F) 07/20/2023 3:[address] Respiratory Rate 20 07/20/2023 3:50 PM EST Oxygen Saturation - - Inhaled Oxygen Concentration - - Weight - - Height - - Body Mass Index - - documented in this encounter Progress Notes * Jung García MD - 07/20/2023 3:58 PM EST Chief Complaint Patient presents with Acute SUBJECTIVE: Trudi AMEZCUA is a 58 year old female with PMH as below who presents for acute. She is c/o christopher, sob, and fever for 2 days. Working to breath more, lung congestion, also high fever. notes she is "zoning" out which is not her normal. No known sick contacts. No falls. No vomiting. +wheezing, is using inhalers. Patient Active Problem List Diagnosis Code Rheumatoid arthritis involving multiple sites with positive rheumatoid factor ([facility]) M05.79 Mixed rhinitis J31.0 Tobacco use disorder F17.200 Paresthesias in left hand R20.2 Paroxysmal SVT (supraventricular tachycardia) I47.10 History of tobacco use Z87.891 History of abnormal cervical Pap smear Z87.42 Encounter for long-term (current) use of medications Z79.899 Pulmonary emphysema ([facility]) J43.9 Major depressive disorder, recurrent episode, moderate ([facility]) F33.1 ADHD (attention deficit hyperactivity disorder), combined type F90.2 Panic disorder with agoraphobia and mild panic attacks F40.01 Primary osteoarthritis of first carpometacarpal joint of right hand M18.11 COPD, group B, by GOLD 2017 classification ([facility]) J44.9 Current Outpatient Medications Medication Sig Dispense Refill Naproxen Sodium 220 MG Oral Tablet Take 1 Tablet by mouth. 2 tabs every 12 hours as needed for pain Fexofenadine HCl 180 MG Oral Tablet (Nguyen) [...] up to three times a day.-st 03/20/2021) Omeprazole 20 MG Oral Capsule Delayed Release (PriLOSEC) TAKE 1 CAPSULE BY MOUTH EVERY DAY 1 HOUR BEFORE THE FIRST MEAL 90 Capsule 3 Hydroxychloroquine Sulfate 200 MG Oral Tablet (Plaquenil) [...] Ellipta 100-62.5-25 MCG/ACT Aerosol Powder Breath Activated (Atsghwkprgy-Jgsytpibitjo-Hedrlofutt) INHALE 1 PUFF BY MOUTH DAILY 60 Each 5 Rinvoq 15 MG Oral Tablet Extended Release 24 Hour (Upadacitinib ER) Take 1 Tablet by mouth in the morning. 30 Tablet 5 Klor-Con M10 10 MEQ Oral Tablet Extended Release Take 1 Tablet by mouth in the morning. Ventolin HFA 108 (90 Base) MCG/ACT Inhalation Aerosol Solution INHALE 2 PUFFS BY MOUTH EVERY 4 HOURS NEEDED FOR COUGH, SHORTNESS OF BREATH OR WHEEZING. 18 g 1 Losartan Potassium 100 MG Oral Tablet (Cozaar) Take 1 Tablet by mouth in the morning. TAKE 1 TABLETBY MOUTH EVERY DAY IN THE MORNING. 90 Tablet 3 Current Facility-Administered Medications Medication Dose Route Frequency Provider Last Rate Last Admin Albuterol Sulfate (Proventil) (2.5 MG/3ML) 0.083% inhalation solution 2.5 mg 2.5 mg Nebulizer PRN Lilly Thorne MD 2.5 mg at 06/10/23 1002 Review of patient's allergies indicates: Allergen Reactions Ivp Dye Anaphylaxis anaphylactic RX Nickel Nickel earrings-redness , swelling Health Maintenance Due Topic Date Due DISCUSS TOBACCO CESSATION (REFER [id number]) Never done HIV Screening Never done COVID-19 Vaccine (2 - Edson risk series) 02/16/2021 Mammogram 01/29/2023 Influenza Vaccine (FLU shot) (1) 04/19/2023 Depression Screening 07/18/2023 ROS: CONSTITUTIONAL: No change in weight and + weakness EYE: No recent significant change in vision and No eye pain, redness, discharge EARS: No ear pain, No drainage, No tinnitus or vertigo, and No recent change in hearing PULMONARY: as per hpi CARDIOVASCULAR: No chest pain, No orthopnea, No paroxysmal nocturnal dyspnea, No edema, No palpitations, and No syncope ALL OTHER SYSTEMS NEGATIVE I reviewed social, PMH, PSH, and family history and updated where needed. Social History Socioeconomic History Marital status: Spouse name: Not on file Number of children: 1 Years of education: Not on file Highest education level: Not on file Occupational History Occupation: [employer] Employer: [employer] Comment: [employer] Tobacco Use Smoking status: Every Day Packs/day: 1.00 Years: 39.00 Additional pack years: 0.00 Total pack years: 39.00 Types: Cigarettes Smokeless tobacco: Never Vaping Use Vaping Use: Never used Substance and Sexual Activity Alcohol use: Yes Comment: social Drug use: No Sexual activity: Yes Partners: Male control/protection: Surgical Comment: tubal Other Topics Concern Not on file Social History Narrative [facility] [place] INFORMATION [...] Armas MD 02/16/2008 Social Determinants of Health Financial Resource Strain: Not on file Food Insecurity: No Food Insecurity (03/18/2023) Hunger Vital Sign Worried About Running Out of Food in the Last Year: Never true Ran Out of Food in the Last Year: Never true Transportation Needs: Not on file Physical Activity: Not on file Stress: Not on file Social Connections: Not on file Intimate Partner Violence: Not on file Housing Stability: Not on file Past Medical History: Diagnosis Date ANXIETY STATE NOS 02/16/2008 Arthritis, rheumatoid (HCC) 10/30/2013 Asthma, allergic Carpal tunnel syndrome 10/23/2002 COPD, group A, by GOLD 2017 classification (HCC) 10/26/2019 Per COPD GOLD Classification DEPRESSIVE DISORDER [...] factor (HCC) 10/30/2013 SVT (supraventricular tachycardia) 01/26/2019 Past Surgical History: Procedure Laterality Date CARPAL TUNNEL SURGERY 2007 Right hand COLONOSCOPY, DIAGNOSTIC (RECTUM) 03/07/2020 diverticulosis, repeat 10 yrs / COLONOSCOPY FLEXIBLE PROXIMAL DIAGNOSTIC performed by Suraj Farnsworth MD at ENDOSCOPY [facility] ECHO, COMPLETE (2D), TRANS-THORACIC 04/09/2019 normal LV size and function, EF 56% LIGATE/CUT OVIDUCT(S) 12/2001 Laparoscopic tubal ligation- Dr. Tomlin UNLISTED LAPAROSCOPY;UTERUS 1991 normal; looking for endometriosis Family History Problem Relation Age of Onset Asthma Mother Arthritis Mother Uterine cancer Mother Multiple Sclerosis Mother COPD Sister Breast Cancer Grandmother (Maternal) 60 Cancer Grandmother (Maternal) OBJECTIVE: PHYSICAL EXAM: BP 98/54 | Pulse 122 | Temp (!) 39.8 C (103.7 F) | Resp 20 | LMP 06/28/2011 General: alert, healthy, and ill looking, working to breath Head: Normocephalic, No masses, lesions, or abnormalities Eye Exam: conjunctiva are pink and non-injected, sclera clear Ears: External ears normal, Canals clear, TM's Normal Nose: no mucosal erythema, no mucosal edema, no purulent discharge Heart: regular rate & rhythm, no murmur, no gallops, tachycardia, S-1 normal, and S-2 normal Lungs: normal respiratory rate and rhythm, coarse sounds heard I reviewed last gfr, cbc, liver ASSESSMENT: R06.09 CHRISTOPHER (dyspnea on exertion) (primary encounter diagnosis) R06.02 SOB (shortness of breath) R05.1 Acute cough PLAN: CHRISTOPHER (dyspnea on exertion) (Primary) Concern for pneumonia, sepsis given low bp in setting normally hypertensive, fever, immunosuppressive, tachycardia. Discussed er for stat imaging, labs, they are agreeable Offered ambulance, they decline Called er to report patient coming SOB (shortness of breath) As above Acute cough As above Follow Up: Return if symptoms worsen or fail to improve. Jung García MD documented in this encounter Nursing Notes * Rajwinder Hansen LPN - 07/20/2023 3:48 PM EST Cough, congestion and some sob. Started . Did not do home covid swab documented in this encounter Plan of Treatment Upcoming Encounters Date Type Department Care Team (Late st Contact Info) Description 07/26/2023 10:15 AM EST NeuroDiagnostic Study Neurophysiology [facility] [address] [facility] [place] [address] Bolivar Cardenas MD [address] [facility] [place] [address] 07/31/2023 9:15 AM EST Office Visit Orthopaedics [facility] [address] [facility] [place] [address] Hunter Bangura PA-C [address] [facility] [place] [address] 08/13/2023 1:30 PM EST Office Visit Cardiology, [facility] [address] [facility] [place] [address] Linda Parker PA-C [address] [place] [address] 09/02/2023 12:20 PM EST Office Visit General Internal Medicine [facility] [address] [facility] [place] [address] Lilly Thorne MD [address] [facility] [place] [address] 09/16/2023 9:45 AM EST Office Visit Otolaryngology [facility] [address] [place] [address] Rocky Hines DO [address] [place] [phone] 03/16/2024 3:20 PM EDT Office Visit Rheumatology [place] [address] [facility] [place] [address] Shahriar Trivedi MD [facility] [place] [address] 07/06/2024 1:00 PM EST Office Visit Gynecology/Obstetric s [facility] [address] [place] [address] Mary Schreiber PA-C [address] [place] [id number] Scheduled Procedures Name Priority Associated Diagnoses Date/Ti me COLONOSCOPY FLEXIBLE PROXIMA L DIAGNOSTIC Recall Special screening for malignant neoplasms, colon Health Maintenance Due Date Last Done Comments DISCUSS TOBACCO CESSATION (REFER TO SMARTSET #4913) 1965 HIV Screening 1980 HPV/Co-Test 1995 Fecal Occult Blood Test 2010 Sigmoidoscopy 2010 COVID-19 Vaccine (2 - Edson risk series) 02/16/2021 01/19/2021 Cologuard 12/28/2021 12/28/2018 Mammogram 01/29/2023 01/29/2022, 02/2021, 01/18/2020, Additional history exists Influenza Vaccine (FLU [...] 10/19/2019 LUNG CANCER SCREENING - USE SMARTSET [id number] Completed 03/27/2021 Hepatitis B Completed 06/03/2023, 10/17, 05/01/2021 Alpha-1 Antitrypsin Completed 06/10/2023 GARDASIL-HPV IMMUNIZATION SERIES Aged Out No longer eligible based on patient's age to complete this topic MENINGOCOCCAL (MENACTRA/MENVEO) Aged Out No longer eligible based on patient's age to complete this topic documented as of this encounter Medical Devices Not on filedocumented as of this encounter Visit Diagnoses Diagnosis CHRISTOPHER (dyspnea on exertion)- Primary Other dyspnea and respiratory abnormality SOB (shortness of breath) Shortness of breath Acute cough documented in this encounter Care Teams Survey Technician Relationship Specialty Start Date End Date Lilly Thorne MD [address] [place] [address] PCP - General Internal Medicine 10/19/19 documented as of this encounter
--- OUTSIDE RECORDS SUMMARY | 2023-07-20 22:58 | External Medical Summary | Summary of Care ---
Author Name Unknown Organization [facility] Address [address] [place] [address] Phone [phone] Care Team Providers Care Audio Experience Expert Name Role Phone Lilly Thorne MD Primary Care Provider Reason for Visit * Reason Comments eRx-Medication Refill Encounter Details Date Type Department Care Team (Late st Contact Info) Description 05/27/2023 Telephone Rheumatology [place] [id number] [place] [id number] Milton El MD [facility] [employer] [place] [address] eRx-Medication Refill Allergies Active Allergy Reactions Criticality Noted Date Comments Ivp Dye Anaphylaxis High 10/05/1998 anaphylactic RX Nickel 02/29/2020 Nickel earrings-redness , swelling documented as of this encounter (statuses as of 06/25/2023) Medications Medication Sig Dispensed Refills Start Date End Date Status Naproxen Sodium 220 MG Oral Tablet Take 1 Tablet by mouth. 2 tabs every 12 hours as needed for pain 0 Active Fexofenadine HCl 180 MG Oral Tablet (Nguyen) Take 1 Tablet by mouth in the morning. 0 Active Metamucil Smooth Texture 58.6 % Oral Powder (Psyllium)Indica tions:Loose stools One scoop in 8 ounces of water daily, may inc up to three times a day.-st 03/20/2021 0 Active Additional Information Patient taking differently: PRN, Constipation, One scoop in 8 ounces of water daily, may inc up to three times a day.-st 03/20/2021, Reported on 06/03/2023 Omeprazole 20 MG Oral Capsule Delayed Release (PriLOSEC)Indica tions:Gastroesop hageal reflux disease, unspecified whether esophagitis present,Esophage al dysphagia,Encoun ter for long-term (current) use of medications TAKE 1 CAPSULE BY MOUTH EVERY DAY 1 HOUR BEFORE THE FIRST MEAL 90 Capsule 3 2 Active Ventolin HFA 108 (90 Base) MCG/ACT Inhalation Aerosol SolutionIndicati ons:COPD, moderate (HCC) INHALE 2 PUFFS BY MOUTH EVERY 4 HOURS NEEDED FOR COUGH, SHORTNESS OF BREATH OR WHEEZING. 18 g 1 3 Active Hydroxychloroqui ne Sulfate 200 MG Oral Tablet (Plaquenil)Indic ations:Rheumatoi d arthritis involving multiple sites with positive rheumatoid factor (HCC) Take 1.5 Tablets by mouth at bedtime. 180 Tablet 1 3 Active Folic Acid 1 MG Oral TabletIndication s:Rheumatoid arthritis involving multiple sites with positive rheumatoid factor (HCC) Take 3 Tablets by mouth in the morning. 270 Tablet 4 3 Active Leflunomide 10 MG Oral Tablet (Arava)Indicatio ns:Rheumatoid arthritis involving multiple sites with positive rheumatoid factor (HCC) Take 1 Tablet by mouth in the morning. 90 Tablet 1 3 Active Metoprolol Succinate ER 25 MG Oral Tablet Extended Release 24 Hour (toPROL XL)Indications:P aroxysmal SVT (supraventricula r tachycardia) TAKE 1 TABLET BY MOUTH EVERY DAY 30 Tablet 11 3 Active Escitalopram Oxalate 10 MG Oral Tablet (Lexapro) Take 1.5 Tablets by mouth in the morning. 45 Tablet 2 3 Active buPROPion HCl ER (SR) 200 MG Oral Tablet Extended Release 12 Hour (Wellbutrin SR) Take one pill in the morning and one pill around 3pm. 60 Tablet 4 3 Active Rinvoq 15 MG Oral Tablet Extended Release 24 Hour (Upadacitinib ER) Take 1 Tablet by mouth in the morning. 30 Tablet 5 3 Active Rinvoq 15 MG Oral Tablet Extended Release 24 Hour (Upadacitinib ER) Take 1 Tablet by mouth in the morning. 30 Tablet 5 3 05/28/20 23 Discontinued Trelegy Ellipta 100-62.5-25 MCG/ACT Aerosol Powder Breath Activated (Fluticasone-Ume clidinium-Vilant luis)Indications :COPD, moderate (HCC),Pulmonary emphysema, unspecified emphysema type (HCC) INHALE 1 PUFF BY MOUTH DAILY 60 Each 5 3 06/03/20 23 Discontinued(Ref ill) dilTIAZem HCl ER Beads 120 MG Oral Capsule Extended Release 24 HourIndications: SVT (supraventricula r tachycardia) TAKE 2 CAPSULES DAILY 60 Capsule 0 3 06/03/20 23 Discontinued(Ref ill) Losartan Potassium 50 MG Oral Tablet (Cozaar)Indicati ons:HTN, goal below 140/90 TAKE 1 TABLET BY MOUTH EVERY DAY IN THE MORNING 30 Tablet 0 3 06/03/20 23 Discontinued(Ref ill) Rinvoq 15 MG Oral Tablet Extended Release 24 Hour (Upadacitinib ER) TAKE 1 TABLET DAILY IN THE MORNING 30 Tablet 2 3 06/25/20 23 Discontinued(Ref ill) documented as of this encounter (statuses as of 06/25/2023) Active Problems Problem Noted Date Diagnosed Date [...] as of this encounter (statuses as of 06/25/2023) Resolved Problems Problem Noted Date Diagnosed Date [...] as of this encounter (statuses as of 06/25/2023) Immunizations Name Administration Dates Next Due Covid-19 [...] on file documented as of this encounter Miscellaneous Notes * Addendum Note - Shirley Rose, [facility] - 06/25/2023 8:34 AM ESTAddended by: SHIRLEY ROSE on: 06/25/2023 08:34 AM Modules accepted: Orders * Telephone Encounter - Shirley Rose RPh - 06/25/2023 8:31 AM EST Rheumatology: Refill Request(s) Rinvoq Per review of the refill parameters, Medication was refilled for additional refills as labs were completed and acceptable. Shirley Rose RPh [facility] Clinical Pharmacist Rheumatology Department 06/25/2023,8:31 AM * Telephone Encounter - Milton El MD - 06/24/2023 4:37 PM EST Yes she is taking rinvoq as well * Telephone Encounter - Shirley Rose RPh - 06/11/2023 9:07 AM EDT Reviewed labs done 06/10/23. Kidney function, liver function, lipids, and blood count results are appropriate as per rheumatology medication protocol. Will wait to send in additional refills of Rinvoq until after upcoming f/u appt on 06/17/23. Thank you, Shirley Rose, FransiscoD [facility] Clinical Pharmacist Rheumatology Department [phone] 06/11/2023 * Telephone Encounter - Shirley Rose RPh - 05/28/2023 6:02 PM EDT Provided 30 days supply with 2 refill(s). Per refill protocol patient should have Lipid panel on file within past 6 months. Lab orders placed. Please contact patient to advise of labs ordered for blood draw. Recommend patient to fast if able for labs. Patient may still have water and regular medications. Advise to obtain labs before requesting the next refill. Thank you, Shirley Rose, FransiscoD Clinical Pharmacist [facility] ([facility]) [phone] 05/28/2023, 6:02 PM * Telephone Encounter - Milton El MD - 05/28/2023 4:50 PM EDTSigned Prescriptions: Disp Refills Rinvoq 15 MG Oral Tablet Extended Release *30 Tab*2 Sig: TAKE 1 TABLET DAILY IN THE MORNING Authorizing Provider: MILTON EL * Telephone Encounter - Milton El MD - 05/28/2023 4:49 PM EDT Will refill Call patient to get updated labs that are fasting * Telephone Encounter - Shirley Rose [facility] - 05/28/2023 11:56 AM EDT Pending Prescriptions: Disp Refills Rinvoq 15 MG Oral Tablet Extended Release *30 Tab*2 Sig: TAKE 1 TABLET DAILY IN THE MORNING * Telephone Encounter - Shirley Rose [facility] - 05/28/2023 11:50 AM EDT Rheumatology: Refill Request(s) Per review of the refill parameters, Medication was NOT refilled d/t following concern: Last labs completed greater than protocol allows. Last labs completed Lipid panel 07/10/21, CMP and CBC up to date 03/20/23. Please advise if you would like held until labs completed. Lab work previously ordered and pended 90 day supply. Please route back and will advise pt of labs if appropriate. Shirley Rose [facility] Clinical Pharmacist Rheumatology Department 05/28/2023,11:53 AM documented in this encounter Plan of Treatment Upcoming Encounters Date Type Department Care Team (Late st Contact Info) Description 07/01/2023 2:00 PM EST Office Visit Cardiology, [facility] [address] [facility] [place] [address] Linda Parker PA-C [address] [place] [address] [place] [address] 07/17/2023 9:00 AM EST Office Visit Orthopaedics [facility] [address] [facility] [place] [address] Hunter Bangura PA-C [address] [facility] [place] [address] 07/26/2023 10:15 AM EST NeuroDiagnostic Study Neurophysiology [facility] [address] [facility] [place] [place] [address] Bolivar Cardenas MD [address] [facility] [place] [place] [address] 09/02/2023 12:20 PM EST Office Visit General Internal Medicine [facility] [address] [place] [address] Lilly Thorne MD [address] [facility] [place] [address] 09/16/2023 9:45 AM EST Office Visit Otolaryngology [facility] [address] [place] [address] Rocky Hines DO [address] [place] [address] 03/16/2024 3:20 PM EDT Office Visit Rheumatology [facility] [address] [facility] [place] [address] Milton El MD [address] [employer] [place] [address] 07/06/2024 1:00 PM EST Office Visit Gynecology/Obstetric s [facility] [address] [place] [address] Mary Schreiber PA-C [address] [place] [phone] Scheduled Orders Name Type Priority Associated Diagnoses Orde r Schedule CBC WITH WBC DIFFERENTIAL Lab Routine Encounter for long-term (current) use of medications Every 3 Months for 4 Occurrences starting 05/28/2023 until 05/28/2024, 1 completed COMPREHENSIVE METABOLIC PANEL Lab Routine Encounter for long-term (current) use of medications Every 3 Months for 4 Occurrences starting 05/28/2023 until 05/28/2024, 1 completed LIPID PANEL WITH DIRECT LDL IF TG IS HIGH Lab Routine Encounter for long-term (current) use of medications Every 6 Months for 2 Occurrences starting 05/28/2023 until 05/28/2024, 1 completed Scheduled Procedures Name Priority Associated Diagnoses Date/Ti me COLONOSCOPY FLEXIBLE PROXIMA L DIAGNOSTIC Recall Special screening for malignant neoplasms, colon Health Maintenance Due Date Last Done Comments DISCUSS TOBACCO CESSATION (REFER TO SMARTSET #2180) 1965 HIV Screening 1980 HPV/Co-Test 1995 Fecal Occult Blood Test 2010 Sigmoidoscopy 2010 COVID-19 Vaccine (2 - Edson risk series) 02/16/2021 01/19/2021 Cologuard 12/28/2021 12/28/2018 Mammogram 01/29/2023 01/29/2022, 06/0 02/2021, 01/18/2020, Additional history exists Influenza Vaccine [...] 10/19/2019 LUNG CANCER SCREENING - USE SMARTSET 05045 Completed 03/27/2021 Hepatitis B Completed 06/03/2023, 10/17, 05/01/2021 Alpha-1 Antitrypsin Completed 06/10/2023 GARDASIL-HPV IMMUNIZATION SERIES Aged Out No longer eligible based on patient's age to complete this topic MENINGOCOCCAL (MENACTRA/MENVEO) Aged Out No longer eligible based on patient's age to complete this topic documented as of this encounter Medical Devices Not on filedocumented as of this encounter Results * LIPID PANEL WITH DIRECT LDL IF TG IS HIGH (06/10/2023 10:24 AM EDT) Triglycerides 77 <=174 mg/dL 06/10/2023 8:28 PM EDT [facility] Comment: Triglyceride Reference Ranges (mg/dL): <150 Acceptable 150-174 Borderline high 175-499 High >=500 Very high Cholesterol 179 <200 mg/dL 06/10/2023 8:28 PM EDT [facility] Comment: Total Cholesterol Reference Ranges (mg/dL): <200 Desirable 200-239 Borderline high >=240 High HDL Cholesterol 85 >49 mg/dL 8:28 PM EDT [facility] Comment: HDL Cholesterol Reference Ranges (mg/dL): >=60 High (Desirable) <50 Low (Undesirable) For Females <40 Low (Undesirable) For Males Non-HDL Cholesterol 94 <=159 mg/dL 06/10/2023 8:28 PM EDT [facility] Comment: Non-HDL Cholesterol Reference Range (mg/dL): <100 Target level for high risk ASCVD patient <130 Optimal for general population 130-159 Near optimal for general population 160-189 Borderline High 190-219 High >=220 Very High LDL Cholesterol 79 <=129 mg/dL 06/10/2023 8:28 PM EDT [facility] Comment: LDL Cholesterol Reference Ranges (mg/dL): <70 Target level for high risk ASCVD patient <100 Optimal for general population 100-129 Near optimal for general population 130-159 Borderline high 160-189 High >=190 Very high Blood Venous blood specimen / Unknown Venipuncture / Unknown 06/10/2023 10:24 AM EDT 06/10/2023 10:24 AM EDT Shirley Rose [facility] LAB BLOOD ORDERAB LES [facility] [address] [place] [address] * COMPREHENSIVE METABOLIC PANEL (06/10/2023 10:24 AM EDT) Pathologist [facility] BUN 17 6 - 20 mg/dL 06/10/2023 11:52 AM EDT [facility] Creatinine 0.8 0.5 - 1.0 mg/dL 06/10/2023 11:52 AM EDT [facility] Estimated Glomerular Filtration Rate 89 >=60 mL/min 06/10/2023 11:52 AM EDT [facility] Comment:eGFR is calculated b ased on the CKD-EPI 2020 equation Sodium 140 135 - 146 mmol/L 06/10/2023 11:52 AM EDT [facility] Potassium 4.2 3.5 - 5.1 mmol/L 06/10/2023 11:52 AM EDT [facility] Chloride 103 98 - 107 mmol/L 06/10/2023 11:52 AM EDT [facility] CO2 23 22 - 32 mmol/L 06/10/2023 11:52 AM EDT [facility] Anion Gap 14 7 - 15 mmol/L 06/10/2023 11:52 AM EDT [facility] Glucose 76 70 - 120 mg/dL 06/10/2023 11:52 AM EDT [facility] Albumin 4.5 3.8 - 5.0 g/dL 06/10/2023 11:52 AM EDT [facility] AST 19 10 - 35 U/L 06/10/2023 11:52 AM EDT [facility] Alkaline Phosphatase 59 35 - 130 U/L 06/10/2023 11:52 AM EDT [facility] Bilirubin, Total 0.9 <=1.2 mg/dL 06/10/2023 11:52 AM EDT [facility] Calcium 9.3 8.4 - 10.2 mg/dL 06/10/2023 11:52 AM EDT [facility] Protein 6.9 6.0 - 8.3 g/dL 06/10/2023 11:52 AM EDT [facility] ALT 18 10 - 35 U/L 06/10/2023 11:52 AM EDT [facility] Blood Venous blood specimen / Unknown Venipuncture / Unknown 06/10/2023 10:24 AM EDT 06/10/2023 10:24 AM EDT Shirley Bergshobha [facility] LAB BLOOD ORDERAB LES [facility] [place] [facility] [place] [id number] documented in this encounter Visit Diagnoses Diagnosis Encounter for long-term (current) use of medications- Primary Encounter for long-term (current) use of other medications documented in this encounter Care Teams Audio Experience Expert Relationship Specialty Start Date End Date Lilly Thorne MD [address] [facility] [place] [address] PCP - General Internal Medicine 10/19/19 documented as of this encounter
--- OUTSIDE RECORDS SUMMARY | 2023-07-20 22:58 | External Medical Summary | Summary of Care ---
Author Name Unknown Organization [facility] Address [address] [place] [address] Phone [phone] Care Team Providers Care Senior Sales Assistant Name Role Phone Lilly Thorne MD Primary Care Provider [phone] Reason for Referral * Evaluate & Treat - Unlimited Visits (Within 10 days (routine)) - Pending Review Specialty Diagnoses / Procedures Referred By Michelle sams Referred To Contact Obstetrics/Gynecology / Gynecology Obstetrics Diagnoses History of abnormal cervical Pap smear Lilly Thorne MD [address] [place] [address] Referral ID Status Reason Start Date Expiration Date Visits Requested Visits Authorized [id number] Pending Review Specialty Services Required [phone] Question Answer Referral Priority Within 10 days (routine) Where should this appointment be scheduled? [facility] What condition is the patient being seen for? Annual Wellness * Evaluate & Treat - Unlimited Visits (Within 10 days (routine)) - Pending Review Specialty Diagnoses / Procedures Referred By Michelle sams Referred To Contact Pulmonary Diseases / Pulmonary Diagnoses Pulmonary emphysema, unspecified emphysema type (HCC) Tobacco use disorder Pulmonary nodule less than 6 mm determined by computed tomography of lung Lilly Thorne MD [address] [place] [address] Referral ID Status Reason Start Date Expiration Date Visits Requested Visits Authorized [id number] Pending Review Specialty Services Required [phone] Question Answer Referral Priority Within 10 Days (Routine) Primary Reason for Referral? Lung Nodule/Mass Reason for Visit * Reason Comments Physical-Exam The pt stated she is here for a physical exam Encounter Details Date Type Department Care Team (Latest Contact Info) Description 06/03/2023 10:00 AM EDT Office Visit General Internal Medicine [facility] [place] [address] [facility] [place] [address] Lilly Thorne MD [address] [facility] [place] [address] HTN, goal below 140/90*; Need for hepatitis B vaccination; Paroxysmal SVT (supraventricular tachycardia); COPD, moderate (HCC); Pulmonary emphysema, unspecified emphysema type (HCC); Tobacco use disorder; Pulmonary nodule less than 6 mm determined by computed tomography of lung; Rheumatoid arthritis involving multiple sites with positive rheumatoid factor (HCC); Major depressive disorder, recurrent episode, moderate (HCC); COPD, group B, by GOLD 2017 classification ([facility]); History of abnormal cervical Pap smear Allergies Active Allergy Reactions Criticality Noted Date Comments Ivp Dye Anaphylaxis High 10/05/1998 anaphylactic RX Nickel 02/29/2020 Nickel earrings-redness , swelling documented as of this encounter (statuses as of 06/24/2023) Medications Medication Sig Dispensed Refills Start Date [...] around 3pm. 60 Tablet 4 05/24/2023 Active Rinvoq 15 MG Oral Tablet Extended Release 24 Hour (Upadacitinib ER) TAKE 1 TABLET DAILY IN THE MORNING 30 Tablet 2 05/28/2023 Active dilTIAZem HCl ER Coated Beads 240 MG Oral Capsule Extended Release 24 Hour (Cardizem CD)Indications:HT N, goal below 140/90,Paroxysmal SVT (supraventricular tachycardia) Take 1 Capsule by mouth in the morning. 90 Capsule 3 06/03/2023 Active Losartan Potassium 50 MG Oral Tablet (Cozaar)Indicatio ns:HTN, goal below 140/90 TAKE 1 TABLET BY MOUTH EVERY DAY IN THE MORNING 90 Tablet 1 06/03/2023 Active Trelegy Ellipta 100-62.5-25 MCG/ACT Aerosol Powder Breath Activated (Fluticasone-Umec lidinium-Vilanter ol)Indications:CO PD, moderate (HCC),Pulmonary emphysema, unspecified emphysema type (HCC) INHALE 1 PUFF BY MOUTH DAILY 60 Each 5 06/03/2023 Active Trelegy Ellipta 100-62.5-25 MCG/ACT Aerosol Powder Breath Activated (Fluticasone-Umec lidinium-Vilanter ol)Indications:CO PD, moderate (HCC),Pulmonary emphysema, unspecified emphysema type (HCC) INHALE 1 PUFF BY MOUTH DAILY 60 Each 5 12/28/2022 3 Discontinue d(Refill) dilTIAZem HCl ER Beads 120 MG Oral Capsule Extended Release 24 HourIndications:S VT (supraventricular tachycardia) TAKE 2 CAPSULES DAILY 60 Capsule 0 03/12/2023 3 Discontinue d(Refill) Losartan Potassium 50 MG Oral Tablet (Cozaar)Indicatio ns:HTN, goal below 140/90 TAKE 1 TABLET BY MOUTH EVERY DAY IN THE MORNING 30 Tablet 0 05/09/2023 3 Discontinue d(Refill) Klor-Con M10 10 MEQ Oral Tablet Extended Release Take 1 Tablet by mouth in the morning. 0 05/13/2023 3 Discontinue d(End of Procedure) Hospital, Clinic, or Other Facility Administered Medication Ordered Dose Route Frequency Start Date End Date Status Albuterol Sulfate (Proventil) (2.5 MG/3ML) 0.083% inhalation solution 2.5 mgIndications:COPD, moderate (HCC),Pulmonary emphysema, unspecified emphysema type (HCC) 2.5 mg NEBULIZER PRN 06/03/2023 06/02/2024 Acti ve documented as of this encounter (statuses as of 06/24/2023) Active Problems Problem Noted Date Diagnosed Date [...] as of this encounter (statuses as of 06/24/2023) Resolved Problems Problem Noted Date Diagnosed Date [...] as of this encounter (statuses as of 06/24/2023) Immunizations Name Administration Dates Next Due Covid-19 [...] Tobacco: Never Tobacco Cessation:Ready to Q uit: Not Asked; Counseling Given: Not Answered Alcohol Use Standard Drinks/Week Comments Yes 0 [...] Sign Reading Time Taken Comments Blood Pressure 140/70 06/03/2023 11:05 AM EDT Pulse 80 06/03/2023 9:54 AM EDT Temperature 36.1 C (96.9 F) 06/03/2023 9:54 AM ED T Respiratory Rate - - Oxygen Saturation 97% 06/03/2023 9:54 AM EDT Inhaled Oxygen Concentration - - Weight 66.3 kg (146 lb 1.6 oz) 06/03/2023 9:54 A M EDT Height 157.5 cm (5' 2") 06/03/2023 9:54 AM EDT Body Mass Index 26.72 06/03/2023 9:54 AM EDT documented in this encounter Patient Instructions * Patient Instructions* Hunter Apodaca LPN - 06/03/2023 9:59 AM EDT Vaccination is the best way to protect against hepatitis B. Most people should get 3 doses of hepatitis B vaccine. If you miss a dose or get behind schedule, get the next dose as soon as you can. There is no need to start over. Age for Hepatitis B Vaccine: INFANTS: *Infants whose mother HAS hepatitis B virus: #1 dose- at 2 month visit #2 dose- 1 month after dose #1 #3 dose- 7 months of age (at least 5 months after dose #1) *Infants whose mother does NOT have hepatitis B virus: #1 dose- - 2 months of age #2 dose- 1-4 months of age (at least 1 month after dose #1) #3 dose- 6-18 months of age ( at least 2 months after dose #2) *Other recommended age groups #1 dose- Now #2 dose- 1-2 months after dose #1 #3 dose- 4-6 months after dose #1 WHAT ARE THE RISKS FROM HEPATITIS B VACCINE? Hepatitis B vaccine is one of the safest vaccines. Getting the disease is much more likely to causeserious illness than getting the vaccine. MILD PROBLEMS: - soreness where the shot was given. - mild to moderate fever Acetaminophen or Ibuprofen (not aspirin) may be used to reduce fever and pain. SEVERE PROBLEMS: - serious allergic reaction is very rare. WHAT TO DO IF THERE IS A SERIOUS REACTION: - Call a doctor or get the person to a doctor right away. - Ask your doctor, nurse, or health department to file a Vaccine Adverse Event Report form. To filea report yourself you can call: (toll-free) LET YOUR DOCTOR KNOW IMMEDIATELY IF YOU HAVE DIFFICULTY BREATHING OR SWALLOWING, EXPERIENCE ITCHING OF FEET OR HANDS, HAVE SWELLING OF EYES, FACE OR INSIDE OF NOSE. documented in this encounter Progress Notes * Lilly Thorne MD - 06/03/2023 10:43 AM EDT SUBJECTIVE: Trudi AMEZCUA is a 57 year old female. Chief Complaint Patient presents with Physical-Exam The pt stated she is here for a physical exam HPI: 1 mth fu --has not been paola 40 min as requested, to [facility] FU [facility] soon. Wt Readings from Last 6 Encounters: 06/03/23 66.3 kg (146 lb 1.6 oz) 03/18/23 66 kg (145 lb 9.6 oz) 12/03/22 66.7 kg (147 lb) 09/17/22 67.5 kg (148 lb 14.4 oz) 09/03/22 66.7 kg (147 lb) 08/28/22 65.2 kg (143 lb 12.8 oz) BP Readings from Last 6 Encounters: 06/03/23 132/86 03/18/23 154/80 12/03/22 158/90 09/03/22 132/74 08/28/22 112/60 08/14/22 138/80 History of palpitations, PSVT, shortness of breath on exertion, GERD, history of asthma, smoked 1 pack a day for 38 years quit May 2019 and restarted 03/2021 1/2 ppd; rheumatoid arthritis followed by rheumatology; H/o NAFLD; moderate depression, panic disorder with agoraphobia followed by Psychiatry Seen 03/18/23 for acute appointment with symptoms of swelling of her left 2nd and 3rd fingers. States some she had swelling of the entire left hand earlier in November, saw rheumatology, felt she may have a flare-up of rheumatoid arthritis and was given Pred taper which she used in November, December and January,none in February. It did help swelling of her thumb but it did not help the 2nd and 3rd fingers. Deniesany recent UTI or URI symptoms. Denies any neck pain. No injuries. Occasionally she may have a pain in her arm but no symptoms of radiculopathy Labs in December- normal CMP, CBC except slight decrease in lymphocytes, --he was awaiting a peripheral smear report before starting her back on methotrexate but no report of a peripheral smear. 04/10-nml cbc,cbmp Saw ortho 04/01/23--diag CTS--rec use brace at hs, had fu 05/30/23 -helping 06/10--is off MTX and on Rinvoq 2022, n/t plaquinil x3 mths-to let rheum know Meds reviewed, she is still taking potassium advised to discontinue the same, as adv in mar as lastK nml, not on diuretic blood pressure noted to be sl high today. She has been taking Naprosyn 1-2/wk ------- Saw card 05/11/19 metoprolol was discontinued and started Cardizem 120mg > zio patch for 2 weeks.Dose of Cardizem was increased to 240 mg 06/12/2019, she had emailed their office reg sx and they added back metoprolol 12.5 mg 01/05/19-nml CBC,-chr macrocytosis sec MTX, CMP, LIPIDS,TSH,B12, Folate 02/04-night ox-nml Echo 04/06- EF 56%, no wall motion abnormality, no diastolic dysfunction. Fu Had cardiology eval 11/07/2020;c/o palpitations. 14 d Zio patch monitor - SVT 1 run 10 bt at 158bpm,, 1 run of VT 14bts at 203 bpm,--metoprolol inc 25mg/d, K added. 01/09/2021-echocardiogram normal, Lexiscan negative. 03/27/2021-LDCT chest >emphysema, subcentimeter pulmonary nodules largest left lower lobe 5 mm, azygos lobe, subsegmental atelectasis in the lingula 05/0980-LRR-tguzldgl obstructive ventilatory impairment with evidence of air trapping. -discussed need to add LAMA - willing to try Trelegy, rpt PFT in [address] chest in 03/2022 -advised smoking cessation, states patches not helped her, remains on Wellbutrin, defers addition of Chantix 07/09-since changing Advair to Trelegy 05/09 states her breathing is much improved. 06/10--last CT chest order -no sob/christopher, refer to STAIR Colonoscopy 03/07/2020-sigmoid diverticulosis multiple small mouth, repeat in 10 years. Menopause age 40? BTL 2001 PAP--neg 2005,,03/29>>06/2014-ASCUS>>neg 07/05/201610/08--c/o chr lack sex drive x 4-5 yrs--going off wellbutrin did not help. Mild dyspareunia-has tried lubricants with +- results. 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 Immunization History Administered Date(s) Administered Covid-19 Ad26, Single Dose (Edson/J&J) 01/19/2021 Hepatitis B, 20+ yrs 05/01/2021, 10/30/2021, 06/03/2023 PPD 01/20/2007 Pneumococcal Conjugate Vacc, 13 Valent (Prevnar) 03/02/2019 Pneumococcal Polysaccharide PPV23 (Pneumovax) 10/11/2009, 09/09/2015 SEASONAL INFLUENZA, PF, 6 M & Above, IM , (FLULAVAL or FLUZONE) 07/07/2019, 06/28/2020 Seasonal Influenza, Quadrivalent, No Preserve, IM 06/30/2015, 07/24/2016 Seasonal Influenza, Split, IIV3, With Preserve, Inj 10/11/2009, 06/05/2010, 06/18/2011, 05/02/2013,06/14/2014 TD, Preservative Free 06/28/2020 TDAP (age 11 and older)(Adacel) 02/24/2010 Zoster Vaccine Recombinant (Shingrix) 10/19/2019, 02/01/202004/10-nml cbc,cmp Potassium Results: Lab Results Component Value Date/Time POTASSIUM - [facility] 4.3 03/20/2023 08:23 AM POTASSIUM - [facility] 4.3 12/03/2022 02:27 PM POTASSIUM - [facility] 4.2 01/17/2022 02:54 PM POTASSIUM - [facility] 3.8 08/15/2020 03:25 PM POTASSIUM - [facility] 4.2 01/05/2019 01:41 PM POTASSIUM - [facility] 5.0 05/22/2015 01:19 PM TSH Results: Lab Results Component Value Date/Time TSH - [facility] 2.23 03/20/2023 08:23 AM TSH - [facility] 1.76 07/10/2021 09:48 AM TSH - [facility] 1.27 01/05/2019 01:41 PM TSH - [facility] 1.64 06/06/2010 07:29 AM TSH - [facility] 1.87 02/24/2010 10:03 AM Lipid Panel Results: Results for orders placed or performed in visit on 10/25/05 LIPID PANEL Result Value Ref Range HOURS FASTING 12 hours Triglycerides 51 45 - 210 mg/dL Cholesterol 140 <200 mg/dL HDL Cholesterol 66 (H) 40 - 59 mg/dL Cholesterol-HDL Ratio 2.1 LDL Cholesterol 64 0 - 130 mg/dL Results for orders placed or performed in visit on 07/10/21 LIPID PANEL WITH DIRECT LDL IF TG IS HIGH Result Value Ref Range Triglycerides 70 <=174 mg/dL Cholesterol 179 <200 mg/dL HDL Cholesterol 83 >49 mg/dL Non-HDL Cholesterol 96 <=159 mg/dL LDL Cholesterol 82 <=129 mg/dL Patient Active Problem List Diagnosis Code Rheumatoid arthritis involving multiple sites with positive rheumatoid factor (HCC) M05.79 Mixed rhinitis J31.0 Tobacco use disorder F17.200 Paresthesias in left hand R20.2 Paroxysmal SVT (supraventricular tachycardia) I47.10 History of tobacco use Z87.891 Atypical squamous cell changes of undetermined significance (ASCUS) on vaginal cytology R87.620 Encounter for long-term (current) use of medications Z79.899 Pulmonary emphysema ([facility]) J43.9 Major depressive disorder, recurrent episode, moderate ([facility]) F33.1 ADHD (attention deficit hyperactivity disorder), combined type F90.2 Panic disorder with agoraphobia and mild panic attacks F40.01 Primary osteoarthritis of first carpometacarpal joint of right hand M18.11 COPD, group B, by GOLD 2017 classification ([facility]) J44.9 Current Outpatient Medications Medication Sig Dispense [...] may inc up to three times a day.-03/20/2021) Omeprazole 20 MG Oral Capsule Delayed Release [...] mouth in the morning. 270 Tablet 4 Trelegy Ellipta 100-62.5-25 MCG/ACT Aerosol Powder Breath Activated (Cbyyzhcpcpb-Lrndqtdorpwo-Wvkdxciqoq) INHALE 1 PUFF BY MOUTH DAILY 60 Each 5 Leflunomide 10 MG Oral Tablet (Arava) Take 1 Tablet by mouth in the morning. 90 Tablet 1 dilTIAZem HCl ER Beads 120 MG Oral Capsule Extended Release 24 Hour TAKE 2 CAPSULES DAILY 60 Capsule 0 Metoprolol Succinate ER 25 MG Oral Tablet Extended Release 24 Hour (toPROL XL) TAKE 1 TABLET BY MOUTH EVERY DAY 30 Tablet 11 Losartan Potassium 50 MG Oral Tablet (Cozaar) TAKE 1 TABLET BY MOUTH EVERY DAY IN THE MORNING 30 Tablet 0 Escitalopram Oxalate 10 MG Oral Tablet (Lexapro) Take 1.5 Tablets by mouth in the morning. 45 Tablet 2 buPROPion HCl ER (SR) 200 MG Oral Tablet Extended Release 12 Hour (Wellbutrin SR) Take one pill in the morning and one pill around 3pm. 60 Tablet 4 Rinvoq 15 MG Oral Tablet Extended Release 24 Hour (Upadacitinib ER) TAKE 1 TABLET DAILY IN THE MORNING 30 Tablet 2 Klor-Con M10 10 MEQ Oral Tablet Extended Release Take 1 Tablet by mouth in the morning. No current facility-administered medications for this visit. Review of patient's allergies indicates: Allergen Reactions Ivp Dye Anaphylaxis anaphylactic RX Nickel Nickel earrings-redness , swelling OBJECTIVE: BP 132/86 | Pulse 80 | Temp 36.1 C (96.9 F) | Ht 1.575 m (5' 2") | Wt 66.3 kg (146 lb 1.6 oz) |LMP 06/28/2011 | SpO2 97% | BMI 26.72 kg/m | BSA 1.7 m PHYSICAL EXAM: Rpt bp 140/70-RARC General: alert, healthy, no distress, well developed Neck: supple, no adenopathy, thyroid Not enlarged without nodularity Heart: regular rhythm and rate,No murmurs. Lungs: dec BS nirav Extremities: no edema .. ASSESSMENT/PLAN: HTN, goal below 140/90 (Primary) - dilTIAZem HCl ER Coated Beads 240 MG Oral Capsule Extended Release 24 Hour (Cardizem CD); Take 1 Capsule by mouth in the morning. - Losartan Potassium 50 MG Oral Tablet (Cozaar); TAKE 1 TABLET BY MOUTH EVERY DAY IN THE MORNING At goal Need for hepatitis B vaccination - HEP B VACCINE, 20+ YRS (3-DOSE); Standing - HEP B VACCINE, 20+ YRS (3-DOSE) Paroxysmal SVT (supraventricular tachycardia) - dilTIAZem HCl ER Coated Beads 240 MG Oral Capsule Extended Release 24 Hour (Cardizem CD); Take 1 Capsule by mouth in the morning. COPD, moderate (HCC) - Trelegy Ellipta 100-62.5-25 MCG/ACT Aerosol Powder Breath Activated (Iqnctivzihl-Mdfzjcqqxisl-Namdmdlbpl); INHALE 1 PUFF BY MOUTH DAILY - SPIROMETRY B/A BRONCHODILATOR; Future; Expected date: 06/04/2023 - LUNG VOLUMES (PLETHYSMOGRAPHY); Future; Expected date: 06/03/2023 - DIFFUSION CAPACITY (DLCO); Future; Expected date: 06/03/2023 - Albuterol Sulfate (Proventil) (2.5 MG/3ML) 0.083% inhalation solution 2.5 mg - [id number], QN; Future; Expected date: 06/03/2023 Pulmonary emphysema, unspecified emphysema type (HCC) - STAIR LUNG NODULE REFERRAL OP (SYSTEM FOR TRACKING ABNORMALITIES OF IMPORTANCE RELIABLY) - Trelegy Ellipta 100-62.5-25 MCG/ACT Aerosol Powder Breath Activated (Lfsmobrqeal-Zbwkyevobvrn-Eudjyuzguh); INHALE 1 PUFF BY MOUTH DAILY - SPIROMETRY B/A BRONCHODILATOR; Future; Expected date: 06/04/2023 - LUNG VOLUMES (PLETHYSMOGRAPHY); Future; Expected date: 06/03/2023 - DIFFUSION CAPACITY (DLCO); Future; Expected date: 06/03/2023 - Albuterol Sulfate (Proventil) (2.5 MG/3ML) 0.083% inhalation solution 2.5 mg Tobacco use disorder - STAIR LUNG NODULE REFERRAL OP (SYSTEM FOR TRACKING ABNORMALITIES OF IMPORTANCE RELIABLY) Pulmonary nodule less than 6 mm determined by computed tomography of lung - STAIR LUNG NODULE REFERRAL OP (SYSTEM FOR TRACKING ABNORMALITIES OF IMPORTANCE RELIABLY) Rheumatoid arthritis involving multiple sites with positive rheumatoid factor (HCC) Major depressive disorder, recurrent episode, moderate (HCC) H/o abn pap smear - [facility] REFERRAL OP Follow Up: Return in about 3 months (around 09/03/2023) for Return with Physician, Fasting Labs Soon. | For: Return with Physician, Fasting Labs Soon | Check-out note: 40 min cpe-xle problems as was not paola 40min today Paola appt [facility] --no time to address today (This note was completed using the dictation program Fluency Direct. As such, there may be misspellings, word substitutions, or other variations that should not change the essence of the clinical content of this encounter note. If there is need for further clarification, please direct questions to the provider listed above.) Patient and / caregiver verbalize understanding of above instructions and agrees with plan of care. Lilly Thorne MD 06/03/2023 * Hunter Apodaca LPN - 06/03/2023 9:57 AM EDT The patient has been properly identified by confirmation of name and date of . Hepatitis B VIS given to patient. Hepatitis B ordered and Provider aware. Hunter Apodaca LPN Time Out Procedure Performed: Yes Patient Identified (Ask Name/Date of ): Yes Immunization(s) verified: Yes, VIS Sheet(s) given: Yes Verified Side and Site: Yes Verified Shot(s) with Patient: Yes Hunter Apodaca LPN documented in this encounter Nursing Notes * Hunter Apodaca LPN - 06/03/2023 9:54 AM EDT Chief Complaint Patient presents with Physical-Exam The pt stated she is here for a physical exam documented in this encounter Plan of Treatment Upcoming Encounters Date Type Department Care Team (Late st Contact Info) Description 07/01/2023 2:00 PM EST Office Visit Cardiology, [facility] [address] [facility] [place] [address] Linda Parker PA-C [address] [place] [address] [place] [address] 07/17/2023 9:00 AM EST Office Visit Orthopaedics [facility] [address] [place] [address] Hunter Bangura PA-C [address] [place] [address] 07/26/2023 10:15 AM EST NeuroDiagnostic Study Neurophysiology [facility] [address] [facility] [place], [place] [address] Bolivar Cardenas MD [address] [facility] [place], [place] [address] 09/02/2023 12:20 PM EST Office Visit General Internal Medicine [facility] [address] [facility] [place], [place] [address] Lilly Thorne MD [address] [facility] [place] [address] 09/16/2023 9:45 AM EST Office Visit Otolaryngology [facility] [address] [place] [address] Rocky Hines DO [address] [place] [address] 03/16/2024 3:20 PM EDT Office Visit Rheumatology [place] [id number] Located Within [facility] [place], [place] [address] Shahriar Trivedi MD [facility] [place] [address] 07/06/2024 1:00 PM EST Office Visit Gynecology/Obstetric s [facility] [address] [place] [address] Mary Schreiber PA-C [address] [place] [id number] Pending Results Name Type Priority Associated Diagnoses Date /Time SPIROMETRY B/A BRONCHODILATOR Procedures Routine COPD, moderate (HCC) Pulmonary emphysema, unspecified emphysema type (HCC) 06/10/2023 9:47 AM EDT LUNG VOLUMES (PLETHYSMOGRAPHY) Procedures Routine COPD, moderate (HCC) Pulmonary emphysema, unspecified emphysema type (HCC) 06/10/2023 9:47 AM EDT DIFFUSION CAPACITY (DLCO) Procedures Routine COPD, moderate (HCC) Pulmonary emphysema, unspecified emphysema type (HCC) 06/10/2023 9:47 AM EDT Scheduled Procedures Name Priority Associated Diagnoses Date/Ti me COLONOSCOPY FLEXIBLE PROXIMA L DIAGNOSTIC Recall Special screening for malignant neoplasms, colon Scheduled Referrals Name Type Priority Associated Diagnoses Orde r Schedule STAIR LUNG NODULE REFERRAL OP (SYSTEM FOR TRACKING ABNORMALITIES OF IMPORTANCE RELIABLY) Referral Within 10 days (routine) Pulmonary emphysema, unspecified emphysema type (HCC) Tobacco use disorder Pulmonary nodule less than 6 mm determined by computed tomography of lung Ordered: 06/03/2023 [facility] REFERRAL OP Referral Within 10 days (routine) History of abnormal cervical Pap smear Ordered: 06/03/2023 Health Maintenance Due Date Last Done Comments DISCUSS TOBACCO CESSATION (REFER TO SMARTSET #[id number]) 1965 HIV Screening 1980 HPV/Co-Test 1995 Fecal [...] 10/19/2019 LUNG CANCER SCREENING - USE SMARTSET 74832 Completed 03/27/2021 Hepatitis B Completed 06/03/2023, 10/17, 05/01/2021 Alpha-1 Antitrypsin Completed 06/10/2023 GARDASIL-HPV IMMUNIZATION SERIES Aged Out No longer eligible based on patient's age to complete this topic MENINGOCOCCAL (MENACTRA/MENVEO) Aged Out No longer eligible based on patient's age to complete this topic documented as of this encounter Medical Devices Not on filedocumented as of this encounter Results * [id number]-1-OSONRHUIUGP, QN (06/10/2023 10:24 AM EDT) Luyyo-9-Eavdcmlnq in QN 145 83 - 199 mg/dL 06/14/2023 10:27 PM EDT [facility] Comment: Test Performed at: [facility] [address] [place] [address] Lito Serrano M.D., Ph.D.,Director of Laboratories Blood Venous blood specimen / Unknown Venipuncture / Unknown 06/10/2023 10:24 AM EDT 06/10/2023 10:24 AM EDT Lilly Thorne MD LAB BLOOD ORDERABLES [facility] [address] [place] [address] documented in this encounter Visit Diagnoses Diagnosis HTN, goal below 140/90- Primary Unspecified essential hypertension Need for hepatitis B vaccination Need for prophylactic vaccination and inoculation against viral hepatitis Paroxysmal SVT (supraventricular tachycardia) Paroxysmal supraventricular tachycardia COPD, moderate (HCC) Chronic airway obstruction, not elsewhere classified Pulmonary emphysema, unspecified emphysema type (HCC) Tobacco use disorder Pulmonary nodule less than 6 mm determined by computed tomography of lung Rheumatoid arthritis involving multiple sites with positive rheumatoid factor (HCC) Major depressive disorder, recurrent episode, moderate (HCC) Major depressive disorder, recurrent episode, moderate COPD, group B, by GOLD 2017 classification ([facility]) History of abnormal cervical Pap smear Personal history of other genital system and obstetric disorders documented in this encounter Care Teams Senior Sales Assistant Relationship Specialty Start Date End Date Lilly Thorne MD 200 [facility] [place] [address] PCP - General Internal Medicine 10/19/19 documented as of this encounter
--- OUTSIDE RECORDS SUMMARY | 2023-07-20 22:58 | External Medical Summary | Summary of Care ---
Author Name Unknown Organization [facility] Address [address] [facility] [address] Phone [phone] Care Team Providers Care Proration Clerk Name Role Phone Lilly Thorne MD Primary Care Provider [phone] Reason for Visit * Reason Comments Cardiology Study Encounter Details Date Type Department Care Team (Latest Contact Info) Description 07/01/2023 3:00 PM EST Cardiac Studies Card[facility] [address] Paroxysmal SVT (supraventricular tachycardia)* Allergies Active Allergy Reactions Criticality Noted Date [...] on file documented as of this encounter Progress Notes * Summer Young LPN - 07/01/2023 2:51 PM EST 07/01/23 2:52 PM Date to Remove: 07/15/23 Serial Number: [id number] Ordering Provider: LindaMILADYS Leslie LPN Zio patch applied in clinic, as per provider orders. documented in this encounter Plan of Treatment Upcoming Encounters Date Type Department Care Team (Late st Contact Info) Description 07/17/2023 9:00 AM EST Office Visit Orthopaedics [facility] 132 [facility] [place] [address] Hunter Bangura PA-C 132 [facility] [place] [address] 07/26/2023 10:15 AM EST NeuroDiagnostic Study Neurophysiology [facility] 200 [facility] [place] [address] Bolivar Cardenas MD 200 [facility] [place] [address] 08/13/2023 1:30 PM EST Office Visit Cardiology, [facility] 132 [facility] [place] [address] Linda Parker PA-C [address] [place] [address] [place] [address] 09/02/2023 12:20 PM EST Office Visit General Internal Medicine [facility] 200 [facility] [place], [place] [address] Lilly Thorne MD 200 [facility] [place], [place] [address] 09/16/2023 9:45 AM EST Office Visit Otolaryngology [facility] 132 [facility] [place] [address] Rocky Hines DO 132 [facility] [place] [address] 03/16/2024 3:20 PM EDT Office Visit Rheumatology [facility] [address] [place], [place] [address] Shahriar Trivedi MD [address] [place] [address] 07/06/2024 1:00 PM EST Office Visit Gynecology/Obstetric s Nazario Crouch [address] [place] [address] Mary Schreiber PA-C [address] [place] [address] Scheduled Procedures Name Priority Associated Diagnoses Date/Ti me COLONOSCOPY FLEXIBLE PROXIMA L DIAGNOSTIC Recall Special screening for malignant neoplasms, colon Health Maintenance Due Date Last Done Comments DISCUSS TOBACCO CESSATION (REFER TO SMARTSET #7906) 1965 HIV Screening 1980 HPV/Co-Test 1995 Fecal [...] 10/19/2019 LUNG CANCER SCREENING - USE SMARTSET 07517 Completed 03/27/2021 Hepatitis B Completed 06/03/2023, 10/17, 05/01/2021 Alpha-1 Antitrypsin Completed 06/10/2023 GARDASIL-HPV IMMUNIZATION SERIES Aged Out No longer eligible based on patient's age to complete this topic MENINGOCOCCAL (MENACTRA/MENVEO) Aged Out No longer eligible based on patient's age to complete this topic documented as of this encounter Medical Devices Not on filedocumented as of this encounter Visit Diagnoses Diagnosis Paroxysmal SVT (supraventricular tachycardia)- Primary Paroxysmal supraventricular tachycardia documented in this encounter Care Teams Proration Clerk Relationship Specialty Start Date End Date Lilly Thorne MD 200 [place] [address] PCP - General Internal Medicine 10/19/19 documented as of this encounter
--- OUTSIDE RECORDS SUMMARY | 2023-07-20 22:59 | External Medical Summary ---
Author Name Unknown Address Unknown Organization : Laboratory Report Ordering Provider Test Date Status GITA DA SILVA 06/10/2023 10:24:44 Final Observation Date Value Abnormality Reference (Units ) Status Alpha-1 antitrypsin 06/10/2023 10:24:44 145 83-199 (mg/dL) Final
Test Performed at:
[facility]
[address] [facility]
[place] [address]
Lito Serrano M.D., Ph.D.,Director of Laboratories Performing Location
--- OUTSIDE RECORDS SUMMARY | 2023-07-20 22:59 | External Medical Summary | Summary of Care ---
Author Name Unknown Organization [facility] Address [address] [facility] [place] [address] Phone [phone] Care Team Providers Care Gate Watch Name Role Phone Lilly Thorne MD Primary Care Provider [phone] Reason for Visit * Reason Comments Rheum Follow Up Recheck RA Encounter Details Date Type Department Care Team (Late st Contact Info) Description 06/17/2023 9:40 AM EDT Office Visit Rheumatology [place] [address] [employer] [place] [address] Shahriar Trivedi MD [facility] [employer] [place] [address] Rheumatoid arthritis involving multiple sites with positive rheumatoid factor (HCC)*; Encounter for long-term (current) use of medications; Carpal tunnel syndrome of left wrist Allergies Active Allergy Reactions Criticality Noted Date Comments Ivp Dye Anaphylaxis High 10/05/1998 anaphylactic RX Nickel 02/29/2020 Nickel earrings-redness , swelling documented as of this encounter (statuses as of 06/17/2023) Medications Medication Sig Dispensed Refills Start Date End Date Status Naproxen Sodium 220 MG Oral Tablet Take 1 Tablet by mouth. 2 tabs every 12 hours as needed for pain 0 Active Fexofenadine HCl 180 MG Oral Tablet (Krissy) Take 1 Tablet by mouth in the [...] Active Losartan Potassium 50 MG Oral Tablet (Cozaar)Indications :HTN, goal below 140/90 TAKE 1 TABLET BY MOUTH EVERY DAY IN THE MORNING 90 Tablet 1 06/03/2023 Active Trelegy Ellipta 100-62.5-25 MCG/ACT Aerosol Powder Breath Activated (Fluticasone-Umecli dinium-Vilanterol)I ndications:COPD, moderate (HCC),Pulmonary emphysema, unspecified emphysema type (HCC) INHALE 1 PUFF BY MOUTH DAILY 60 Each 5 06/03/2023 Active Hospital, Clinic, or Other Facility Administered Medication Ordered Dose Route Frequency Start Date End Date Status Albuterol Sulfate (Proventil) (2.5 MG/3ML) 0.083% inhalation solution 2.5 mgIndications:COPD, moderate (HCC),Pulmonary emphysema, unspecified emphysema type (HCC) 2.5 mg NEBULIZER PRN 06/03/2023 06/02/2024 Acti ve documented as of this encounter (statuses as of 06/17/2023) Active Problems Problem Noted Date Diagnosed Date [...] of tobacco use 10/19/2019 Overview: Quit 06/06 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 10/19/2019 Overview: 06/2014 Encounter for long-term (current) use of medicat ions 10/19/2019 Paroxysmal SVT (supraventricular tachycardia) Paresthesias in left hand 12/28/2018 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 Tobacco use disorder 06/29/2014 Rheumatoid arthritis involvi ng multiple sites with positive rheumatoid factor 10/30/2013 documented as of this encounter (statuses as of 06/17/2023) Resolved Problems Problem Noted Date Diagnosed Date [...] as of this encounter (statuses as of 06/17/2023) Immunizations Name Administration Dates Next Due Covid-19 [...] Sign Reading Time Taken Comments Blood Pressure - - Pulse - - Temperature 36.5 C (97.7 F) 06/17/2023 9:40 AM ED T Respiratory Rate - - Oxygen Saturation - - Inhaled Oxygen Concentration - - Weight 65.8 kg (145 lb) 06/17/2023 9:40 AM EDT Height - - Body Mass Index 26.52 06/03/2023 9:54 AM EDT documented in this encounter Progress Notes * Shahriar Trivedi MD - 06/17/2023 9:48 AM EDT Images from the original note were not included. Assessment and Plan Rheumatoid arthritis involving multiple sites with positive rheumatoid factor (HCC) Encounter for long-term (current) use of medications Carpal tunnel syndrome of left wrist - EMG Her RA itself is doing well and will continue with leflunomide and Plaquenil. Continue with labs every 3 months. Ordered nerve conduction study for her to get hopefully before her Orthopedics appointment. Return to clinic next summer. Rheumatology Synopsis: [facility] RA SYNOPSIS Date of RA Diagnosis: 08/19/12 (06/17/2023 9:00 AM) Current Treatment: LEF; HCQ (06/17/2023 9:00 AM) Previous Treatment: MTX; UPA (06/17/2023 9:00 AM) 2009 Classification Criteria: Y (06/17/2023 9:00 AM) Seropositive or seronegative: Seropositive (06/17/2023 9:00 AM) RF and/or CCP: Dual Positive (06/17/2023 9:00 AM) Disease activity: Controlled Patient History History of Present Illness HPI:58 year old female presented to rheumatology clinic for Rheum Follow Up (Recheck RA) She has remained on plaquenil and arava. She is due for her eye exam. She is wondering if she needsto stay on these medicines. She is due for an eye exam this year. She reports that her ;last flare up was in the spring. This lead to her left carpal tunnel syndrome. Bracing initially helped but nowat a stand still. She has ongoing numbness of the left 1st 3 fingers. Not all the time. Reviewed ortho note in the mentioned getting a nerve study She did have labs recently that I reviewed with her. ROS: Review of Systems was asked and the following other significant symptoms are present: numbness, joint pains Subjective Patient's past history, medications, and allergies were reviewed. Medications: Current Outpatient Medications Medication Instructions buPROPion HCl ER (SR) 200 MG Oral Tablet Extended Release 12 Hour (Wellbutrin SR) Take one pill in the morning and one pill around 3pm. dilTIAZem CD (CARDIZEM CD) 240 mg, Oral, Daily(AM) escitalopram (LEXAPRO) 15 mg, Oral, Daily(AM) fexofenadine (KRISSY) 180 mg, Oral, Daily(AM) folic acid 3 mg, Oral, Daily(AM) hydroxychloroquine (PLAQUENIL) 300 mg, Oral, HS Leflunomide (ARAVA) 10 mg, Oral, Daily(AM) Losartan Potassium 50 MG Oral Tablet (Cozaar) TAKE 1 TABLET BY MOUTH EVERY DAY IN THE MORNING Metamucil Smooth Texture 58.6 % Oral Powder (Psyllium) One scoop in 8 ounces of water daily, may inc up to three times a day.-st 03/20/2021 Metoprolol Succinate ER 25 MG Oral Tablet Extended Release 24 Hour (toPROL XL) TAKE 1 TABLET BY MOUTH EVERY DAY Naproxen Sodium (ALEVE) 220 mg, Oral, 2 tabs every 12 hours as needed for pain Omeprazole 20 MG Oral Capsule Delayed Release (PriLOSEC) TAKE 1 CAPSULE BY MOUTH EVERY DAY 1 HOUR BEFORE THE FIRST MEAL Rinvoq 15 MG Oral Tablet Extended Release 24 Hour (Upadacitinib ER) TAKE 1 TABLET DAILY IN THE MORNING Trelegy Ellipta 100-62.5-25 MCG/ACT Aerosol Powder Breath Activated (Mjtqwzfrioi-Mbgtstodjofv-Pxboxohqiz) INHALE 1 PUFF BY MOUTH DAILY Ventolin HFA 108 (90 Base) MCG/ACT Inhalation Aerosol Solution INHALE 2 PUFFS BY MOUTH EVERY 4 HOURS NEEDED FOR COUGH, SHORTNESS OF BREATH OR WHEEZING. Objective Physical Exam Temp 36.5 C (97.7 F) (Infrared ) | Wt 65.8 kg (145 lb) | LMP 06/28/2011 | BMI 26.52 kg/m | BSA 1.7 m Constitutional: no acute distress HEENT: normal: normocephalic, atraumatic; no masses, tenderness, or adenopathy Eyes: PERRLA, sclera and conjunctiva normal Neck: supple, no adenopathy CV: normal rate and rhythm, no murmur, gallops or rub Chest: normal respiratory effort, lungs clear to auscultation and percussion Abdomen: normal: soft, bowel sounds normal, no masses, tenderness or organomegaly Musculoskeletal: no synovitis or tenderness MSK/Joint exam (Homunculus) MSK Exam findings: Homunculus exam Studies: Labs and Imaging studies reviewed with pertinent findings noted below: Disease Treatment Response CDAI Scoring Patient Global: 40 mm Provider Global: 10 mm Tender (BHAGAT-28): 0 / 28 Swollen (BHAGAT-28): 0 / 28 CDAI: 5 CDAI (Clinical Disease Activity Index) [facility] Outcomes measures: Serial CDAI: Synopsis SmartLink 06/17/2023 09:40 CDAI CDAI 5 - Serial CDAI: - Yes - Remission: - Yes - low disease activity Currently on csDMARD: Yes Currently on Biologic DMARD: Yes Vaccination status: COVID: Vaccine and/or Health maintenance status Incomplete Influenza:Flu Vaccine pending for this season Pneumococcal:Vaccine Series complete Zoster:Vaccine Series Complete Last Hepatitis and TB testing: Hepatitis B: Tested, result reviewed Hepatitis C: Tested, result reviewed PPD or TB-Gold: Tested, result reviewed Lab Results Component Value Date HBSAG Negative 02/23/2021 HEPB Negative 02/23/2021 HEPB <3.5 02/23/2021 HEPB Negative 02/23/2021 HEPB NOT immune to Hepatitis B Virus 02/23/2021 HCVAB Negative 02/23/2021 TB GOLD AG NIL Date/Time Value Ref Range Status 12/24/2016 09:49 AM <0.00 IU/mL Final Comment: (NOTE) The Nil tube value is used to determine if the patient has a preexisting immune response which could cause a false-positive reading on the test. In order for a test to be valid, the Nil tube must have a value of <=8.0 IU/mL. The Mitogen control tube is used to assure the patient has a healthy immune status and also serves as a control for correct blood handling and incubation. It is used to detect false-negative readings. The mitogen tube must have a gamma interferon value >= 0.5 IU/mL higher than the value of the Nil tube. The TB Antigen tube is coated with the M tuberculosis specific antigens. For a test to be considered positive the TB antigen tube value minus the Nil tube value must be >=0.35 IU/mL. Data on the performance of the test in children younger than 5 years of age are limited, and the CDC advises that caution is warranted when using the assay in children aged <5 years (MMWR 2010; 59 (RR-05):1-25). For additional information, please refer to: http://education.[employer]/faq/QFT (This link is being provided for informational/ educational purposes only). TB GOLD MITOGEN NIL Date/Time Value Ref Range Status 12/24/2016 09:49 AM 8.22 IU/mL Final PPD INDURATION Date/Time Value Ref Range Status 01/22/2007 12:00 AM 0 mm mm QUANTIFERON-TB PLUS,1T Date/Time Value Ref Range Status 02/23/2021 11:04 AM NEGATIVE NEGATIVE Final Comment: Negative test result. M. tuberculosis complex infection unlikely. Follow-up: Return in about 9 months (around 03/17/2024). | Check-out note: See if emg can be done before ortho appt which is 07/17 documented in this encounter Nursing Notes * Shobha Kirby LPN - 06/17/2023 9:39 AM EDT Chief Complaint Patient presents with Rheum Follow Up Recheck RA documented in this encounter Plan of Treatment Upcoming Encounters Date Type Department Care Team (Late st Contact Info) Description 07/01/2023 2:00 PM EST Office Visit Cardiology, [facility] 132 [facility] [place] [address] Linda Parker PA-C [address] [place] [address] [place] [address] 07/17/2023 9:00 AM EST Office Visit Orthopaedics [facility] [address] [place] [address] Hunter Bangura PA-C [address] [place] [address] 07/26/2023 10:15 AM EST NeuroDiagnostic Study Neurophysiology [facility] 200 [facility] [place] [address] Bolivar Cardenas MD 200 [facility] [address] 09/02/2023 12:20 PM EST Office Visit General Internal Medicine [facility] 200 [facility] [place] [address] Lilly Th[facility] MD 200 [facility] [address] 09/16/2023 9:45 AM EST Office Visit Otolaryngology [facility] [address] [place] [address] Rocky Hines DO [address] [place] [address] 03/16/2024 3:20 PM EDT Office Visit [address]umatology [address] [address] Shahriar Trivedi MD [address] [place] [address] [place], [place] [address] 07/06/2024 1:00 PM EST Office Visit Gynecology/Obstetric s [facility] [address] [place] [address] Mary Schreiber PA-C [address] [place] [address] Scheduled Procedures Name Priority Associated Diagnoses Date/Ti me COLONOSCOPY FLEXIBLE PROXIMA L DIAGNOSTIC Recall Special screening for malignant neoplasms, colon Health Maintenance Due Date Last Done Comments DISCUSS TOBACCO CESSATION (REFER TO SMARTSET #3291) 1965 HIV Screening 1980 HPV/Co-Test 1995 Fecal [...] 10/19/2019 LUNG CANCER SCREENING - USE SMARTSET 24[address] Completed 03/27/2021 Hepatitis B Completed 06/03/2023, 10/17, 05/01/2021 Alpha-1 Antitrypsin Completed 06/10/2023 GARDASIL-HPV IMMUNIZATION SERIES Aged Out No longer eligible based on patient's age to complete this topic MENINGOCOCCAL (MENACTRA/MENVEO) Aged Out No longer eligible based on patient's age to complete this topic documented as of this encounter Medical Devices Not on filedocumented as of this encounter Visit Diagnoses Diagnosis Rheumatoid arthritis involving multiple sites with positive rheumatoid factor (HCC)- Primary Encounter for long-term (current) use of medications Encounter for long-term (current) use of other medications Carpal tunnel syndrome of left wrist Carpal tunnel syndrome documented in this encounter Care Teams Gate Watch Relationship Specialty Start Date End Date Lilly Thorne MD 200 [place] [address] PCP - General Internal Medicine 10/19/19 documented as of this encounter"
--- OUTSIDE RECORDS SUMMARY | 2023-07-20 22:59 | External Medical Summary | Summary of Care ---
Author Name Unknown Organization [facility] Address [address] [place] [address] Phone [phone] Care Team Providers Care Academic Advising Director Name Role Phone Lilly Thorne MD Primary Care Provider [phone] Reason for Visit * Reason Onset Date Comments STAIR Lung Nodule 06/03/2023 Encounter Details Date Type Department Care Team Description 06/03/2023 Telephone STAIR LUNG NODULE [address] [place] [address] Program, Stair [address] [place] [address] STAIR Lung Nodule Allergies Active Allergy Reactions Severity Noted Date Comments Ivp Dye Anaphylaxis High 10/05/1998 anaphylactic RX Nickel 02/29/2020 Nickel earrings-redness , swelling documented as of this encounter (statuses as of 06/03/2023) Medications Medication Sig Dispensed Refills Start Date [...] as of this encounter (statuses as of 06/03/2023) Active Problems Problem Noted Date COPD, group B, by GOLD 2017 classificati on 04/01/2023 Overview: Per COPD GOLD Classification Primary osteoarthritis of first carpomet acarpal joint of right hand 01/17/2022 Major depressive disorder, recurrent epi sode, moderate 07/03/2021 ADHD (attention deficit hyperactivity di sorder), combined type 07/03/2021 Panic disorder with agoraphobia and mild panic attacks 07/03/2021 Pulmonary emphysema 05/01/2021 History of tobacco use 10/19/2019 Overview: Quit 06/06 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 10/19/2019 Overview: 06/2014 Encounter for long-term (current) use of medications 10/19/2019 Paroxysmal SVT (supraventricular tachyca rdia) 01/26/2019 Paresthesias in left hand 12/28/2018 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 Tobacco use disorder 06/29/2014 Rheumatoid arthritis involvi ng multiple sites with positive rheumatoid factor 10/30/2013 documented as of this encounter (statuses as of 06/03/2023) Resolved Problems Problem Noted Date Resolved Date 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 01/17/2022 01/17/2022 COPD, moderate 10/26/2019 04/04/2023 Overview: Per COPD GOLD Classification Encounter for screening mammogram for breast can cer 10/19/2019 06/28/2020 Screen for colon cancer 10/19/2019 06/28/20 20 Overview: 03/07--sig tics--rpt 10 yrs Palpitations 12/28/2018 10/19/2019 Encounter for long-term (cur rent) use of high-risk medication 04/06/2016 06/28/2020 COPD, moderate 06/29/2014 10/29/2019 Overview: Per COPD GOLD Classification Migraine without aura 09/17/2011 07/24/2016 Acute cystitis 12/13/2009 07/28/2011 Asthma with severity to be determined 02/16/2008 08/15/2011 Overview: ICD-10 update of inactive term Anxiety state 02/16/2008 12/28/2018 Intermittent asthma with reliever use up to twic e per week 02/16/2008 06/29/2014 Overview: Per Provider Protocol. ADVANCE DIRECTIVE INFORMATION 03/11/2006 Overview: Pt has brochure from previous visit. Major depressive disorder 03/11/20062018 Overview: ICD-10 update of inactive term Carpal tunnel syndrome 10/23/2002 6 documented as of this encounter (statuses as of 06/03/2023) Immunizations Name Administration Dates Next Due Covid-19 [...] = 0.6 oz pur e alcohol) social Alcohol Habits Answer Date Recorded How often do you have a drink containing alcohol ? 2-3 times a week 12/28/2018 How many drinks containing a lcohol do you have on a typical day when you are drinking? 1 or 2 12/28/2018 How often do you have six or more drinks on one occasion? Not asked Food Insecurity Answer Date Recorded Within the past 12 months, y ou worried that your food would run out before you got money to buy more. Never true 03/18/2023 Within the past 12 months, t he food you bought just didn't last and you didn't have money to get more. Never true 03/18/2023 Sex Assigned at Date Recorded Female 07/14/2019 2:26 PM E Job Start Date Occupation Industry Not on file Not on file Not on file documented as of this encounter Patient Instructions * Patient Instructions* Fernanda Estrada LPN - 06/03/2023 2:47 PM EDT Trudi AMEZCUA [id number] Benefits of Quitting Smoking Why should I quit smoking? Smoking is bad for you and bad for others around you. Smoking causes cancer, heart attacks, hardening of the arteries, bronchitis, emphysema, cough, shortness of breath, wrinkles, and premature aging. It stains teeth and fingers, irritates the eyes, furs the tongue, and causes bad breath. People are living longer today than their parents did, so it makes sense to work on staying healthy and independent. One of the best ways to do this is to quit smoking. Benefits of quitting smoking It takes time to reverse many years' worth of smoking damage to your body, but some benefits of quitting smoking begin immediately. For example, you're financially better off on day one. Your health starts to improve right away, too, because you remove a former constant source of irritation from your lungs. People may comment that you no longer cough. Your blood circulation is likely to improve, so your hands and feet may feel warmer. Your teeth, breath, and fingers are no longer a turn-off. Benefits that you're less aware of also begin to occur. These include better resistance to colds and respiratory infections, less likelihood of major heart and circulation problems, less risk of high blood pressure or stroke, and less risk of developing cancer. The following arguments are often presented by smokers as justifications for their continuing to smoke: "I have to sometime, so I might as well enjoy life until then." True, but as a smoker you're much more likely to of a heart attack or cancer - neither of whichare very pleasant ways to go. "I'm only hurting myself." True, if you don't count the heartache and grief you may cause your loved ones by your early or permanent disability, or the damage of your smoke to others. "Lots of people who smoke live to ripe old ages in perfect health." True, but this is rare. Nearly all smokers have significant health problems. "Smoking is one of my pleasures. I don't want to quit." Smoking is associated with pleasure because the nicotine in tobacco is an addictive drug. Your bodywill continue to crave a regular supply until you can overcome the habit. Smoking is always a disadvantage to your health and that of your loved ones. "It's my choice and I choose to smoke." True. It is your choice. In a survey of older former smokers, more than 90% quit on their own because they decided to do so. The main reasons they gave for quitting were wanting to stay healthy, following health care provider's advice, regaining control of their lives, and making a loved one happy . [place] Department of Health Quit Line [employer] Free Quitline 3-665 QUIT NOW ( ) Your insurance company may also have more information and helpful programs to help you quit. Some may even help cover some of the costs. For example, [facility] members can call to find out about their smoking cessation program and medication coverage. Developed by Nathaly Mccallum MD, for [employer]. Published by [employer]. Last modified: 2005-12-28 Last reviewed: 2005-10-17 This content is reviewed periodically and is subject to change as new health information becomes available. The information is intended to inform and educate and is not a replacement for medical evaluation, advice, diagnosis or treatment by a healthcare professional. Adult Health Advisor 2006.4 Index Adult Health Advisor 2006.4 Credits Copyright 2006 [employer] and/or one of its subsidiaries. All Rights Reserved. documented in this encounter Miscellaneous Notes * Telephone Encounter - Lilly Thorne MD - 06/03/2023 4:50 PM EDT Noted, will order * Telephone Encounter - Fernanda Estrada LPN - 06/03/2023 2:45 PM EDT It appears that the patient just needs a LDCT and will then be tracked by the LCSP (Lung cancer Screen Program). If you start to type Lung Ca it should be the first thing that comes up. Please advise if you need any assistance documented in this encounter Plan of Treatment Upcoming Encounters Date Type Specialty Care Team Description 06/10/2023 PulmDiagnostic Pulmonary Function [place], Pul Function Tech [address] [place] [address] 06/17/2023 Office Visit Rheumatology Shahriar Trivedi MD [address] [place] [address] 06/17/2023 Telemedicine Psychiatry Lillie Lim CRNP [address] [facility] [place] [address] 07/01/2023 Office Visit Cardiology Linda Parker PA-C [address] [facility] [place] [address] 07/17/2023 Office Visit Orthopedics Hunter Bangura PA-C [address] [place] [address] 09/02/2023 Office Visit Internal Medicine Lilly Thorne MD [address] [facility] [place] [address] 09/16/2023 Office Visit Otolaryngology Rocky Hines DO [address] [place] [address] 07/06/2024 Office Visit Gynecology Obstetrics Mary Schreiber PA-C [address] [place] [address] Scheduled Procedures Name Priority Associated Diagnoses Date/Ti me COLONOSCOPY FLEXIBLE PROXIMA L DIAGNOSTIC Recall Special screening for malignant neoplasms, colon Health Maintenance Due Date Last Done Comments DISCUSS TOBACCO CESSATION (REFER TO SMARTSET #3467) 1965 HIV Screening 1980 Alpha-1 Antitrypsin 1983 HPV/Co-Test 1995 Fecal Occult Blood Test 2010 [...] YEAR FOR COPD 06/03/2024 06/03/2023 Diabetes Screening 03/20/2026 03/20/2023, 0 12/03/2022, 01/17/2022, Additional history exists Lipid Panel 07/10/2026 07/10/2021, 12/18, 07/24/2016, Additional history exists Colonoscopy 03/07/2030 03/07/2020, 03/07/2020 Colorectal Cancer Screening 03/07/2030 Pneumococcal Vaccine: Pediatrics (0 to 5 Years) and At-Risk Patients (6 to 64 Years) (4 - PPSV23 or PCV20) 2030 03/02/2019, 09/09/2015, 10/11/2009 DTaP,Tdap,and Td Vaccines (3 - Td or Tdap) 06/28/2030 06/28/2020, 02/24/2010 Zoster Vaccines Completed 02/01/2020, 10/19/2019 LUNG CANCER SCREENING - USE SMARTSET 45635 Completed 03/27/2021 Hepatitis B Completed 06/03/2023, 10/17, 05/01/2021 GARDASIL-HPV IMMUNIZATION SERIES Aged Out No longer eligible based on patient's age to complete this topic MENINGOCOCCAL (MENACTRA/MENVEO) Aged Out No longer eligible based on patient's age to complete this topic documented as of this encounter Medical Devices Not on filedocumented as of this encounter Visit Diagnoses Diagnosis History of tobacco abuse- Primary Personal history of tobacco use, presenting hazards to health documented in this encounter Care Teams Academic Advising Director Relationship Specialty Start Date End Date Lilly Thorne MD [address] [place] [address] PCP - General Internal Medicine 10/19/19 documented as of this encounter
--- OUTSIDE RECORDS SUMMARY | 2023-07-20 22:59 | External Medical Summary | Summary of Care ---
Author Name Unknown Organization [facility] Address [address] [place] [facility] [place] [address] Phone [phone] Care Team Providers Care Granite Countertop Installer Name Role Phone Lilly Thorne MD Primary Care Provider [phone] Reason for Visit * Reason Comments eRx-Medication Refill Encounter Details Date Type Department Care Team (Late st Contact Info) Description 05/27/2023 Telephone Rheumatology [place] [address] [place] [address] Milton El MD [facility] [employer] [place] [address] eRx-Medication Refill Allergies Active Allergy Reactions Criticality [...] IN THE MORNING 30 Tablet 2 3 Active Rinvoq 15 MG Oral Tablet [...] Tablet 0 3 06/03/20 23 Discontinued(Ref ill) documented as of this [...] as of this encounter Miscellaneous Notes * Telephone Encounter - Milton El MD - 06/24/2023 4:37 PM EST Yes she is taking rinvoq as well * Telephone Encounter - ZaCandace yeager RPh - 06/11/2023 9:07 AM EDT Reviewed labs done 06/10/23. Kidney function, liver function, lipids, and blood count results are appropriate as per rheumatology medication protocol. Will wait to send in additional refills of Rinvoq until after upcoming f/u appt on 06/17/23. Thank you, Candace Rose PharmD [facility] Clinical Pharmacist Rheumatology Department [phone] 06/11/2023 * Telephone Encounter - Candace Rose RPh - 05/28/2023 6:02 PM EDT [...] before requesting the next refill. Thank you, Candace Rose PharmD Clinical Pharmacist [facility] ([facility]) (formerly Telepharmacy) [phone] 05/28/2023, 6:02 PM * Telephone Encounter - [...] that are fasting * Telephone Encounter - Candace Rose [facility] - 05/28/2023 11:56 AM EDT Pending Prescriptions: Disp Refills Rinvoq 15 MG Oral Tablet Extended Release *30 Tab*2 Sig: TAKE 1 TABLET DAILY IN THE MORNING * Telephone Encounter - Candace Rose [facility] - 05/28/2023 11:50 AM EDT Rheumatology: Refill [...] will advise pt of labs if appropriate. Candace Rose [facility] Clinical Pharmacist Rheumatology Department 05/28/2023,11:53 AM documented in this encounter Plan of Treatment Upcoming Encounters Date Type Department Care Team (Late st Contact Info) Description 07/01/2023 2:00 PM EST Office Visit Cardiology, [facility] [address] [facility] [place] [address] Linda Parker PA-C [address] [place] [address] [place] [address] 07/17/2023 9:00 AM EST Office Visit Orthopaedics [facility] [address] [facility] [place] [address] Hunter Bangura PA-C [address] [place] [address] 07/26/2023 10:15 AM EST NeuroDiagnostic Study Neurophysiology [facility] [address] [facility] [place] [address] Bolivar Cardenas MD [address] [facility] [place] [address] 09/02/2023 12:20 PM EST Office Visit General Internal Medicine [facility] [address] [facility] [place] [address] Lilly Thorne MD [address] [facility] [place] [address] 09/16/2023 9:45 AM EST Office Visit Otolaryngology [facility] [address] [facility] [place] [address] Rocky Hines DO [address] [facility] [place] [address] 03/16/2024 3:20 PM EDT Office Visit Rheumatology [address] [place], [place] [address] Milton El MD [address] [place] [address] [place], [place] [address] 07/06/2024 1:00 PM EST Office Visit Gynecology/Obstetric s [facility] [address] [place] [address] Mary Schreiber PA-C [address] [place] [address] Scheduled Orders Name Type Priority Associated Diagnoses [...] Comments DISCUSS TOBACCO CESSATION (REFER TO SMARTSET #8495) 1965 HIV Screening 1980 HPV/Co-Test 1995 Fecal [...] Additional history exists Lipid Panel 06/10/2028 06/10/2023, 1109/2020, 01/05/2019, Additional history exists Colonoscopy 03/07/2030 03/07/2020, 03/07/2020 Colorectal Cancer Screening 03/07/2030 Pneumococcal Vaccine: Pediatrics (0 to 5 Years) and At-Risk Patients (6 to 64 Years) (4 - PPSV23 or PCV20) 2030 03/02/2019, 09/09/2015, 10/11/2009 DTaP,Tdap,and Td Vaccines (3 - Td or Tdap) 06/28/2030 06/28/2020, 02/24/2010 Zoster Vaccines Completed 02/01/2020, 10/19/2019 LUNG CANCER SCREENING - USE SMARTSET [id number] Completed 03/27/2021 Hepatitis B Completed 06/03/2023, 10/17, [...] TG IS HIGH (06/10/2023 10:24 AM EDT) Pathologist [facility] Triglycerides 77 <=174 mg/dL 06/10/2023 8:28 PM EDT [facility] Comment: Triglyceride Reference Ranges (mg/dL): <150 Acceptable 150-174 Borderline high 175-499 High >=500 Very high Cholesterol 179 <200 mg/dL 06/10/2023 8:28 PM EDT LABORATORY C Comment: Total Cholesterol Reference Ranges (mg/dL): <200 Desirable 200-239 Borderline high >=240 High HDL Cholesterol 85 >49 mg/dL 8:28 PM EDT [facility] Comment: HDL Cholesterol Reference Ranges (mg/dL): >=60 High (Desirable) <50 Low (Undesirable) For Females <40 Low (Undesirable) For Males Non-HDL Cholesterol 94 <=159 mg/dL 06/10/2023 8:28 PM EDT [facility] Comment: Non-HDL Cholesterol Reference Range (mg/dL): <100 Target level for high risk ASCVD patient <130 Optimal for general population 130-159 Near optimal for general population 160-189 Borderline High 190-219 High >=220 Very High LDL Cholesterol 79 <=129 mg/dL 06/10/2023 8:28 PM EDT LABORATORY [facility] Comment: LDL Cholesterol Reference Ranges (mg/dL): <70 Target level for high risk ASCVD patient <100 Optimal for general population 100-129 Near optimal for general population 130-159 Borderline high 160-189 High >=190 Very high Blood Venous blood specimen / Unknown Venipuncture / Unknown 06/10/2023 10:24 AM EDT 06/10/2023 10:24 AM EDT Candace Malena Rose [facility] LAB BLOOD ORDERAB LES LABORATORY [facility] [address] [place] [address] * COMPREHENSIVE METABOLIC PANEL (06/10/2023 10:24 AM EDT) BUN 17 6 - 20 mg/dL 06/10/2023 11:52 AM EDT LABORATORY [place] [facility] 57-10 Creatinine 0.8 0.5 - 1.0 mg/dL 06/10/2023 11:52 AM EDT LAB[facility] [place] [facility]10 Estimated Glomerular Filtration Rate 89 >=60 mL/min 06/10/2023 11:52 AM EDT [facility] 57-10 Comment:eGFR is calculated b ased on the CKD-EPI 2020 equation Sodium 140 135 - 146 mmol/L 06/10/2023 11:52 AM EDT LAB[facility]ATORY [facility] 57[facility]10 Potassium 4.2 3.5 - 5.1 mmol/L [...] 10:24 AM EDT 06/10/2023 10:24 AM EDT Candace Malena Rose [facility] LAB BLOOD ORDERAB LES [facility] [place] 57-10 [address] [facility] [place] [address] documented in this encounter Visit Diagnoses Diagnosis Encounter for long-term (current) use of medications- Primary Encounter for long-term (current) use of other medications documented in this encounter Care Teams Granite Countertop Installer Relationship Specialty Start Date End Date Lilly Thorne MD [address] [place] [address] [place] [address] PCP - General Internal Medicine 10/19/19 documented as of this encounter
--- OUTSIDE RECORDS SUMMARY | 2023-07-20 22:59 | External Medical Summary | Summary of Care ---
Author Name Unknown Organization [facility] Address [address] [facility] [place] [address] Phone [phone] Care Team Providers Care Computer Aided Design Drafter Name Role Phone Lilly Thorne MD Primary Care Provider [phone] Reason for Visit * Reason Comments Pulmonary Function Test Encounter Details Date Type Department Care Team (Late st Contact Info) Description 06/10/2023 10:00 AM EDT PulmDiagnostic Pulmonary Function Lab, [facility] [address] [facility] [place] [address] [facility] Function Tech 2 [address] [facility] [place] [address] COPD, moderate (HCC)*; Pulmonary emphysema, unspecified emphysema type (HCC) Allergies Active Allergy Reactions Criticality Noted Date Comments Ivp Dye Anaphylaxis High 10/05/1998 anaphylactic RX Nickel 02/29/2020 Nickel earrings-redness , swelling documented as of this encounter (statuses as of 06/10/2023) Medications Medication Sig Dispensed Refills Start Date [...] as of this encounter (statuses as of 06/10/2023) Active Problems Problem Noted Date Diagnosed Date [...] as of this encounter (statuses as of 06/10/2023) Resolved Problems Problem Noted Date Diagnosed Date [...] as of this encounter (statuses as of 06/10/2023) Immunizations Name Administration Dates Next Due Covid-19 [...] on file documented as of this encounter Plan of Treatment Upcoming Encounters Date Type Department Care Team (Late st Contact Info) Description 06/10/2023 11:00 AM EDT Laboratory Laboratory, [facility] [address] [facility] [place] [address] [facility] [address] [facility] [place] [address] Arrived 06/17/2023 9:40 AM EDT Office Visit Rheumatology [place] [id number] [facility] [place] [address] Shahriar Trivedi MD [address] [place] [address] [place] [address] 06/17/2023 10:00 AM EDT Telemedicine Psychiatry, [facility] [address] [place] [address] Lillie Lim [facility] [address] [place] [address] 07/01/2023 2:00 PM EST Office Visit [facility]iology, [facility] [address] Linda Parker PA-C [address] [place] [address] 07/17/2023 9:00 AM EST Office Visit Orthopaedics [facility] [address] [facility] [place] [address] Hunter Bangura PA-C [address] [facility] [place] [address] 09/02/2023 12:20 PM EST Office Visit General Internal Medicine [facility] [address] [place] [address] Lilly Thorne MD [address] [place] [address] 09/16/2023 9:45 AM EST Office Visit Otolaryngology [facility] [address] [place] [address] Rocky Hines, [address] [place] [address] 07/06/2024 1:00 PM EST Office Visit Gynecology/Obstetrics [facility] [address] [place] [address] Mary Schreiber PA-C [address] [place] [address] Scheduled Procedures Name Priority Associated Diagnoses Date/Ti me COLONOSCOPY FLEXIBLE PROXIMA L DIAGNOSTIC Recall Special screening for malignant neoplasms, colon Health Maintenance Due Date Last Done Comments DISCUSS TOBACCO CESSATION (REFER TO SMARTSET #2808) 1965 HIV Screening 1980 Alpha-1 Antitrypsin 1983 [...] Additional history exists Lipid Panel 07/10/2026 07/10/2021, 05/, 07/24/2016, Additional history exists Colonoscopy 03/07/2030 03/07/2020, 03/07/2020 Colorectal Cancer Screening 03/07/2030 Pneumococcal Vaccine: Pediatrics (0 to 5 Years) and At-Risk Patients (6 to 64 Years) (4 - PPSV23 or PCV20) 2030 03/02/2019, 09/09/2015, 10/11/2009 DTaP,Tdap,and Td Vaccines (3 - Td or Tdap) 06/28/2030 06/28/2020, 02/24/2010 Zoster Vaccines Completed 02/01/2020, 10/19/2019 LUNG CANCER SCREENING - USE SMARTSET 34352 Completed 03/27/2021 Hepatitis B Completed 06/03/2023, 10/17, 05/01/2021 GARDASIL-HPV IMMUNIZATION SERIES Aged Out No longer eligible based on patient's age to complete this topic MENINGOCOCCAL (MENACTRA/MENVEO) Aged Out No longer eligible based on patient's age to complete this topic documented as of this encounter Medical Devices Not on filedocumented as of this encounter Visit Diagnoses Diagnosis COPD, moderate (HCC)- Primary Chronic airway obstruction, not elsewhere classified Pulmonary emphysema, unspecified emphysema type (HCC) documented in this encounter Administered Medications Active Administered Medications - up to 3 most recent administrations Medication Order MAR Action Action Date Dose Rate Site Albuterol Sulfate (Proventil) (2.5 MG/3ML) 0.083% inhalation solution 2.5 mg 2.5 mg, Nebulizer, PRN Other, Starting on 06/03/23 at 1101, Until Sat06/02/24 at 1100, For 365 days, Only one type of albuterol product should be administered (Nebulizer or Inhaler). Please select and document on the appropriate albuterol product order. Given 06/10/2023 10:02 AM EDT 2.5 mg documented in this encounter Care Teams Computer Aided Design Drafter Relationship Specialty Start Date End Date Lilly Thorne MD [address] [facility] [place] [address] PCP - General Internal Medicine 10/19/19 documented as of this encounter
--- OUTSIDE RECORDS SUMMARY | 2023-07-20 22:59 | External Medical Summary | Summary of Care ---
Author Name Unknown Organization [facility] Address [address] [place] [address] Phone [phone] Care Team Providers Care Tromper Name Role Phone Lilly Thorne MD Primary Care Provider [phone] Reason for Visit * Reason Comments eRx-Medication Refill Encounter Details Date Type Department Care Team (Late st Contact Info) Description 05/27/2023 Telephone Rheumatology [place] [address] [address] Milton El MD [facility] [place] [address] eRx-Medication Refill Allergies Active Allergy Reactions Criticality [...] encounter Miscellaneous Notes * Telephone Encounter - Candace Rose [facility] - 06/11/2023 9:07 AM EDT Reviewed labs done 06/10/23. Kidney function, liver function, lipids, and blood count results are appropriate as per rheumatology medication protocol. Will wait to send in additional refills of Rinvoq until after upcoming f/u appt on 06/17/23. Thank you, Candace Rose PharmD [facility] Clinical Pharmacist Rheumatology Department [phone] 06/11/2023 * Telephone Encounter - Candace Rose [...] Pharmacist [facility] Clinical [facility]acy Services (CCPS) ([facility] [phone] 05/28/2023, 6:02 PM * Telephone Encounter - [...] fasting * Telephone Encounter - Candace Rose [facility] - 05/28/2023 11:56 AM EDT Pending Prescriptions: Disp Refills Rinvoq 15 MG Oral Tablet Extended Release *30 Tab*2 Sig: TAKE 1 TABLET DAILY IN THE MORNING * Telephone Encounter - Candace Rose [facility] - 05/28/2023 11:50 AM EDT Rheumatology: Refill [...] pt of labs if appropriate. Candace Rose [facility] Clinical Pharmacist Rheumatology Department 05/28/2023,11:53 AM documented in this encounter Plan of Treatment Upcoming Encounters Date Type Department Care Team (Late st Contact Info) Description 07/01/2023 2:00 PM EST Office Visit Cardiology, [facility] [address] [place] [address] Linda Parker PA-C [address] [place], [place] [address] [address] 07/17/2023 9:00 AM EST Office Visit Orthopaedics [facility] [address] [place] [address] Hunter Bangura PA-C [address] [place] [address] 07/26/2023 10:15 AM EST NeuroDiagnostic Study Neurophysiology [facility] [address] [facility] [place] [address] Bolivar Cardenas MD 200 [facility] [address] 09/02/2023 12:20 PM EST Office Visit General Internal Medicine [facility] [address] [facility] [place] [address] Lilly Thorne MD 200 [facility], [place] [address] 09/16/2023 9:45 AM EST Office Visit Otolaryngology [facility] [address] [place] [address] Rocky Hines DO [address] [place] [address] 03/16/2024 3:20 PM EDT Office Visit Rheumatology [address], [place] [address] Milton El MD [address] [place] [address] [place], [place] [address] 07/06/2024 1:00 PM EST Office Visit Gynecology/Obstetric s [facility] [address] [place] [address] Mary Schreiber PA-C [address] [place] [address] Scheduled Orders Name Type Priority Associated Diagnoses [...] Comments DISCUSS TOBACCO CESSATION (REFER TO SMARTSET #9043) 1965 HIV Screening 1980 HPV/Co-Test 1995 Fecal [...] 10/19/2019 LUNG CANCER SCREENING - USE SMARTSET 26386 Completed 03/27/2021 Hepatitis B Completed 06/03/2023, 10/17, [...] <=174 mg/dL 06/10/2023 8:28 PM EDT LABORATORY [facility] Comment: Triglyceride Reference Ranges (mg/dL): <150 Acceptable 150-174 Borderline high 175-499 High >=500 Very high Cholesterol 179 <200 mg/dL 06/10/2023 8:28 PM EDT LABORATORY [facility] Comment: Total Cholesterol Reference Ranges (mg/dL): <200 Desirable 200-239 Borderline high >=240 High HDL Cholesterol 85 >49 mg/dL 8:28 PM EDT LABORATORY [facility] Comment: HDL Cholesterol Reference Ranges (mg/dL): >=60 High (Desirable) <50 Low (Undesirable) For Females <40 Low (Undesirable) For Males Non-HDL Cholesterol 94 <=159 mg/dL 06/10/2023 8:28 PM EDT LABORATORY [facility] Comment: Non-HDL Cholesterol Reference Range (mg/dL): <100 Target level for high risk ASCVD patient <130 Optimal for general population 130-159 Near optimal for general population 160-189 Borderline High 190-219 High >=220 Very High LDL Cholesterol 79 <=129 mg/dL 06/10/2023 8:28 PM EDT LABORATORY [facility] Comment: LDL Cholesterol Reference Ranges (mg/dL): <70 Target level for high risk ASCVD patient <100 Optimal for general population 100-129 Near optimal for general population 130-159 Borderline high 160-189 High >=190 Very high Blood Venous blood specimen / Unknown Venipuncture / Unknown 06/10/2023 10:24 AM EDT 06/10/2023 10:24 AM EDT Candace Rose [facility] LAB BLOOD ORDERAB LES LABORATORY [facility] [address] [place] [address] * COMPREHENSIVE METABOLIC PANEL (06/10/2023 10:24 AM [...] 06/10/2023 10:24 AM EDT Candace [place] Rose [facility] LAB BLOOD ORDERAB LES Performing Organization Address City/State/[facility] Co de Phone Number [facility] 132 [facility] [place] [address] documented in this encounter Visit Diagnoses Diagnosis Encounter for long-term (current) use of medications- Primary Encounter for long-term (current) use of other medications documented in this encounter Care Teams Tromper Relationship Specialty Start Date End Date Lilly Thorne MD [address] [facility] [place] [address] PCP - General Internal Medicine 10/19/19 documented as of this encounter
--- OUTSIDE RECORDS SUMMARY | 2023-07-20 22:59 | External Medical Summary ---
Author Name Unknown Address Unknown Organization K0G:LABORATORY [facility] - [address] [place] [address] Laboratory Report Ordering Provider Test Date Status VAHE WATSON 06/10/2023 10:24:44 Final Observation Date Value Abnormality Reference (Units ) Status SYNC LEUKOCYTES IN BLOOD BY AUTOMATED COUNT 06/10/2023 10:24:44 5.44 4.00-10.80 (K/uL) Final Segs 06/10/2023 10:24:44 60.3 40.0-75.0 (%) Final Lymphs % 06/10/2023 10:24:44 27.0 18.0-42.0 (%) Final Monos 06/10/2023 10:24:44 9.9 1.0-11.0 (%) Final Eosinophils 06/10/2023 10:24:44 2.4 0.0-6.0 (%) Final Basos 06/10/2023 10:24:44 0.4 0.0-2.0 (%) Final Absolute Segs 06/10/2023 10:24:44 3.28 1.80-7.70 (K/uL) Final Lymphs, absolute 06/10/2023 10:24:44 1.47 1.00-4.80 (K/ul) Final Monos, Abs 06/10/2023 10:24:44 0.54 0.00-1.10 (K/uL) Final Eos, Abs 06/10/2023 10:24:44 0.13 0.00-0.70 (K/uL) Final Basos, Abs 06/10/2023 10:24:44 0.02 0.00-0.20 (K/uL) Final Performing Location [facility] - [address] [place] [address]
--- OUTSIDE RECORDS SUMMARY | 2023-07-20 22:59 | External Medical Summary | Summary of Care ---
Author Name Unknown Organization [facility] Address [address] [facility] [place] [address] Phone [phone] Care Team Providers Care Food Products Sales Representative Name Role Phone Lilly Thorne MD Primary Care Provider [phone] Reason for Visit * Reason Comments eRx-Medication Refill Encounter Details Date Type Department Care Team (Late st Contact Info) Description 05/27/2023 Telephone Rheumatology [place] [address] [place] [place] [address] Milton El MD [facility] [place] [address] eRx-Medication Refill Allergies Active Allergy Reactions Criticality Noted Date Comments Ivp Dye Anaphylaxis High 10/05/1998 anaphylactic RX Nickel 02/29/2020 Nickel earrings-redness , swelling documented as of this encounter (statuses as of 06/11/2023) Medications Medication Sig Dispensed Refills Start Date [...] as of this encounter (statuses as of 06/11/2023) Active Problems Problem Noted Date Diagnosed Date [...] as of this encounter (statuses as of 06/11/2023) Resolved Problems Problem Noted Date Diagnosed Date [...] as of this encounter (statuses as of 06/11/2023) Immunizations Name Administration Dates Next Due Covid-19 Ad26, Single Dose (Edson/J&J) 01/19/2021 Hepatitis B, 20+ yrs 10/30/2021,05/01/2021 PPD 01/20/2007 Pneumococcal Conjugate Vacc, 13 Valent [...] Miscellaneous Notes * Telephone Encounter - Candace Rose, [facility] - 06/11/2023 9:07 AM EDT Reviewed labs done 06/10/23. Kidney function, liver function, lipids, and blood count results are appropriate as per rheumatology medication protocol. Will wait to send in additional refills of Rinvoq until after upcoming f/u appt on 06/17/23. Thank you, Candace Rose, [facility] Clinical Pharmacist Rheumatology Department [phone] 06/11/2023 * Telephone Encounter - Candace Rose RP - 05/28/2023 6:02 PM EDT Provided 30 [...] Thank you, Candace Rose PharmD Clinical Pharmacist [facility] Clinical Pharmacy Services (CCPS) [facility] [phone] 05/28/2023, 6:02 PM * Telephone Encounter - [...] fasting * Telephone Encounter - Candace Rose RPh - 05/28/2023 11:56 AM EDTPending Prescriptions: Disp Refills Rinvoq 15 MG Oral Tablet Extended Release *30 Tab*2 Sig: TAKE 1 TABLET DAILY IN THE MORNING * Telephone Encounter - Candace Rose RP - 05/28/2023 11:50 AM EDT Rheumatology: Refill [...] labs if appropriate. Candace Rose [facility] Clinical Pharmacist Rheumatology Department 05/28/2023,11:53 AM documented in this encounter Plan of Treatment Upcoming Encounters Date Type Department Care Team (Late st Contact Info) Description 06/17/2023 9:40 AM EDT Office Visit Rheumatology [address] [place] [address] Milton El MD [facility] [place] [address] 06/17/2023 10:00 AM EDT [facility] Psychiatry, [place] [address] [place] [address] Lillie Lim CRNP [address] [place] [address] 07/01/2023 2:00 PM EST Office Visit Cardiology, [facility] [place] [address] Linda Parker PA-C [address] [place] [address] [place] [address] 07/17/2023 9:00 AM EST Office Visit Orthopaedics [facility] [address] [place] [address] Hunter Bangura PA-C [address] [place] [address] 09/02/2023 12:20 PM EST Office Visit General Internal Medicine [facility] 200 [facility] [place] [address] Lilly Thorne MD 200 [facility] [place] [address] 09/16/2023 9:45 AM EST Office Visit Otolaryngology [facility] [address] [place] [address] Rocky Hines DO [address] [place] [address] 07/06/2024 1:00 PM EST Office Visit Gynecology/Obstetrics [facility] [address] [place] [address] Mary Schreiber PA-C [address] [place] [address] Scheduled Orders Name Type Priority Associated Diagnoses [...] Comments DISCUSS TOBACCO CESSATION (REFER TO SMARTSET #1989) 1965 HIV Screening 1980 Alpha-1 Antitrypsin 1983 [...] 10/19/2019 LUNG CANCER SCREENING - USE SMARTSET 64950 Completed 03/27/2021 Hepatitis B Completed 06/03/2023, 10/17, [...] <=174 mg/dL 06/10/2023 8:28 PM EDT LABORATORY [facility] Comment: Triglyceride Reference Ranges (mg/dL): <150 Acceptable 150-174 Borderline high 175-499 High >=500 Very high Cholesterol 179 <200 mg/dL 06/10/2023 8:28 PM EDT LABORATORY [facility] Comment: Total Cholesterol Reference Ranges (mg/dL): <200 Desirable 200-239 Borderline high >=240 High HDL Cholesterol 85 >49 mg/dL 8:28 PM EDT LABORATORY [facility] Comment: HDL Cholesterol Reference Ranges (mg/dL): >=60 High (Desirable) <50 Low (Undesirable) For Females <40 Low (Undesirable) For Males Non-HDL Cholesterol 94 <=159 mg/dL 06/10/2023 8:28 PM EDT LABORATORY [facility] Comment: Non-HDL Cholesterol Reference Range (mg/dL): <100 Target level for high risk ASCVD patient <130 Optimal for general population 130-159 Near optimal for general population 160-189 Borderline High 190-219 High >=220 Very High LDL Cholesterol 79 <=129 mg/dL 06/10/2023 8:28 PM EDT LABORATORY [facility] Comment: LDL Cholesterol Reference Ranges (mg/dL): <70 Target level for high risk ASCVD patient <100 Optimal for general population 100-129 Near optimal for general population 130-159 Borderline high 160-189 High >=190 Very high Blood Venous blood specimen / Unknown Venipuncture / Unknown 06/10/2023 10:24 AM EDT 06/10/2023 10:24 AM EDT Candace Rose [facility] LAB BLOOD ORDERAB LES LAB[facility]ATORY [facility] [address] [place] [address] * COMPREHENSIVE METABOLIC PANEL (06/10/2023 10:24 AM [...] EDT 06/10/2023 10:24 AM EDT Candace Rose [facility] LAB BLOOD ORDERAB LES LABORATORY [facility] [place] [address] documented in this encounter Visit Diagnoses Diagnosis Encounter for long-term (current) use of medications- Primary Encounter for long-term (current) use of other medications documented in this encounter Care Teams Food Products Sales Representative Relationship Specialty Start Date End Date Lilly Thorne MD 200 [facility] [place] [address] PCP - General Internal Medicine 10/19/19 documented as of this encounter
--- OUTSIDE RECORDS SUMMARY | 2023-07-20 22:59 | External Medical Summary ---
Author Name Unknown Address Unknown Organization K01:LABORATORY [facility] - [address] [place] [address] Laboratory Report Ordering Provider Test Date Status KENDY MITCHELL 06/10/2023 10:24:44 Final Observation Date Value Abnormality Reference (Units ) Status MYCODE SPECIMEN-SST 06/10/2023 10:24:44 Freezing of extracted DNA, whole blood and/or serum. Final Performing Location LABORATORY [facility] - [address] [place] [address]
--- OUTSIDE RECORDS SUMMARY | 2023-07-20 22:59 | External Medical Summary ---
Author Name Unknown Address Unknown Organization K0G:[facility]ORY [place] [facility] [facility] - [address] [place] [address] Laboratory Report Ordering Provider Test Date Status VAHE WATSON 06/10/2023 10:24:44 Final Observation Date Value Abnormality Reference (Units ) Status WBC, Total 06/10/2023 10:24:44 5.44 4.00-10.8 0 (K/uL) Final RBC 06/10/2023 10:24:44 4.06 3.85-5.15 (M/uL) Final Hemoglobin 06/10/2023 10:24:44 14.3 12.0-15.3 (g/dL) Final HCT 06/10/2023 10:24:44 41.5 36.0-45.2 (%) Final MCV 06/10/2023 10:24:44 102.2 81.5-97.5 (fL) Final MCH 06/10/2023 10:24:44 35.2 27.0-34.0 (pg) Final MCHC 06/10/2023 10:24:44 34.5 32.0-36.0 (g/dL) Final RDW 06/10/2023 10:24:44 13.3 11.5-15.5 (%) Final Platelets 06/10/2023 10:24:44 188 140-400 (K /uL) Final MPV 06/10/2023 10:24:44 10.2 6.6-11.1 ( fL) Final Performing Location LABORATORY [facility] 0 - [address] [place] [address]
--- OUTSIDE RECORDS SUMMARY | 2023-07-20 22:59 | External Medical Summary ---
Author Name Unknown Address Unknown Organization K01:LABORATORY [facility] - [address] [place] [address] Laboratory Report Ordering Provider Test Date Status KENDY MITCHELL 06/10/2023 10:24:44 Final Observation Date Value Abnormality Reference (Units ) Status MYCODE SPECIMEN-SST 06/10/2023 10:24:44 Freezing of extracted DNA, whole blood and/or serum. Final Performing Location LABORATORY [facility] - [address] [place] [address]
--- OUTSIDE RECORDS SUMMARY | 2023-07-20 22:59 | External Medical Summary | Summary of Care ---
Author Name Unknown Organization [facility] Address [address] [facility] [address] Phone [phone] Care Team Providers Care Second Baker Name Role Phone Lilly Thorne MD Primary Care Provider [phone] Reason for Visit * Reason Comments Outpatient Testing Encounter Details Date Type Department Care Team (Late st Contact Info) Description 06/10/2023 11:00 AM EDT Laboratory Laboratory, [facility] [address] [facility] 132 [place] [address] [employer] Other*[id number]; Encounter for long-term (current) use of medications; COPD, moderate (HCC) Allergies Active Allergy Reactions Criticality Noted [...] 06/17/2023 9:40 AM EDT Office Visit Rheumatology [facility] [address] [facility] [place], [place] [address] Shahriar Trivedi MD [address] [facility] [place] [address] 06/17/2023 10:00 AM EDT Telemedicine Psychiatry, [place] [address] [place] [address] Lillie Lim, ADMINISTRATIVE SALES ASSISTANT [address] [place] [address] 07/01/2023 2:00 PM EST Office Visit Cardiology, [facility] [address] [place] [address] Linda Parker PA-C [address] [place] [address] 07/17/2023 9:00 AM EST Office Visit Orthopaedics [facility] [address] [facility] [place] [address] Hunter Bangura PA-C [address] [facility] [place] [address] 09/02/2023 12:20 PM EST Office Visit General Internal Medicine [facility] [address] [facility] [place] [address] Lilly Thorne MD 200 [facility] [place] [address] 09/16/2023 9:45 AM EST Office Visit Otolaryngology [facility] [address] [place] [address] Rocky Hines DO [address] [place] [address] 07/06/2024 1:00 PM EST Office Visit Gynecology/Obstetrics [facility] [address] [place] [address] Mary Schreiber PA-C [address] [place] [address] Pending Results Name Type Priority Associated Diagnoses Date /Time MYCODE SUBSEQUENT ADULT Lab Routine [employer] Other*[id number] 06/10/2023 10:24 AM EDT CBC WITH WBC DIFFERENTIAL Lab Routine Encounter for long-term (current) use of medications 06/10/2023 10:24 AM EDT COMPREHENSIVE METABOLIC PANEL Lab Routine Encounter for long-term (current) use of medications 06/10/2023 10:24 AM EDT LIPID PANEL WITH DIRECT LDL IF TG IS HIGH Lab Routine Encounter for long-term (current) use of medications 06/10/2023 10:24 AM EDT [id number], QN Lab Routine COPD, moderate (HCC) 06/10/2023 10:24 AM EDT MYCODE SST1 Lab Routine [employer] Other*[id number] 06/10/2023 10:24 AM EDT MYCODE SST2 Lab Routine [employer] Other*[id number] 06/10/2023 10:24 AM EDT CBC Lab Routine Encounter for long-term (current) use of medications 06/10/2023 10:24 AM EDT DIFFERENTIAL, AUTOMATED Lab Routine Encounter for long-term (current) use of medications 06/10/2023 10:24 AM EDT Scheduled Procedures Name Priority Associated Diagnoses Date/Ti me COLONOSCOPY FLEXIBLE PROXIMA L DIAGNOSTIC Recall Special screening for malignant neoplasms, colon Health Maintenance Due Date Last Done Comments DISCUSS TOBACCO CESSATION (REFER TO SMARTSET #3291) 1965 HIV Screening 1980 Alpha-1 Antitrypsin 1983 [...] 10/19/2019 LUNG CANCER SCREENING - USE SMARTSET 08975 Completed 03/27/2021 Hepatitis B Completed 06/03/2023, 10/17, 05/01/2021 GARDASIL-HPV IMMUNIZATION SERIES Aged Out No longer eligible based on patient's age to complete this topic MENINGOCOCCAL (MENACTRA/MENVEO) Aged Out No longer eligible based on patient's age to complete this topic documented as of this encounter Medical Devices Not on filedocumented as of this encounter Visit Diagnoses Diagnosis [employer] Other*[id number] Encounter for long-term (current) use of medications Encounter for long-term (current) use of other medications COPD, moderate (HCC) Chronic airway obstruction, not elsewhere classified documented in this encounter Care Teams Second Baker Relationship Specialty Start Date End Date Lilly Thorne MD [address] [place] [address] PCP - General Internal Medicine 3/2/20 documented as of this encounter
--- OUTSIDE RECORDS SUMMARY | 2023-07-20 22:59 | External Medical Summary ---
Author Name Unknown Address Unknown Organization K01:LABORATORY [facility] - [address] [place] [address] Laboratory Report Ordering Provider Test Date Status VAHE WATSON 06/10/2023 10:24:44 Final Observation Date Value Abnormality Reference (Units ) Status Triglyceride 06/10/2023 10:24:44 77 <=174 ( mg/dL) Final Triglyceride Reference Range s (mg/dL):
<150 Acceptable
150-174 Borderline high
175-499 High
>=500 Very high Cholesterol 06/10/2023 10:24:44 179 <200 (mg /dL) Final Total Cholesterol Reference Ranges (mg/dL):
<200 Desirable
200-239 Borderline high
>=240 High HDL 06/10/2023 10:24:44 85 >49 (mg/dL ) Final HDL Cholesterol Reference Ra nges (mg/dL):
>=60 High (Desirable)
<50 Low (Undesirable) For Females
<40 Low (Undesirable) For Males NON-HDL CHOLESTEROL 06/10/2023 10:24:44 94 <=159 (mg/dL) Final Non-HDL Cholesterol Referenc e Range (mg/dL):
<100 Target level for high risk ASCVD patient
<130 Optimal for general population
130-159 Near optimal for general population
160-189 Borderline High
190-219 High
>=220 Very High LDL, (calculated) 06/10/2023 10:24:44 79 <= 129 (mg/dL) Final LDL Cholesterol Reference Ra nges (mg/dL):
<70 Target level for high risk ASCVD patient
<100 Optimal for general population
100-129 Near optimal for general population
130-159 Borderline high
160-189 High
>=190 Very high Performing Location LABORATORY [facility] - [address] [facility] [address]
--- OUTSIDE RECORDS SUMMARY | 2023-07-20 22:59 | External Medical Summary | Summary of Care ---
Author Name Unknown Organization [facility] Address [address] [place] [facility] [address] Phone [phone] Care Team Providers Care Logging Equipment Mechanic Name Role Phone Lilly Thorne MD Primary Care Provider [phone] Reason for Visit * Reason Comments eRx-Medication Refill Encounter Details Date Type Department Care Team (Late st Contact Info) Description 05/27/2023 Telephone Rheumatology [place] [email or web address] [place] [address] Milton El MD [facility] [place] [address] eRx-Medication Refill Allergies Active Allergy Reactions Criticality Noted Date Comments Ivp Dye Anaphylaxis High 10/05/1998 anaphylactic RX Nickel 02/29/2020 Nickel earrings-redness , swelling documented as of this encounter (statuses as of 06/21/2023) Medications Medication Sig Dispensed Refills Start Date [...] as of this encounter (statuses as of 06/21/2023) Active Problems Problem Noted Date Diagnosed Date [...] as of this encounter (statuses as of 06/21/2023) Resolved Problems Problem Noted Date Diagnosed Date [...] as of this encounter (statuses as of 06/21/2023) Immunizations Name Administration Dates Next Due Covid-19 [...] Notes * Telephone Encounter - Candace Rose [facility] - 06/11/2023 9:07 AM EDT Reviewed labs done 06/10/23. Kidney function, liver function, lipids, and blood count results are appropriate as per rheumatology medication protocol. Will wait to send in additional refills of Rinvoq until after upcoming f/u appt on 06/17/23. Thank you, Candace Rose PharmD [facility] Clinical Pharmacist Rheumatology Department [phone] 06/11/2023 * Telephone Encounter - Candace Rose [...] Pharmacist Centralized Clinical Pharmacy Services ([facility]PS) (formerly [facility]) [phone] 05/28/2023, 6:02 PM * Telephone Encounter - [...] fasting * Telephone Encounter - Candace Rose [facility] - 05/28/2023 11:56 AM EDT Pending Prescriptions: Disp Refills Rinvoq 15 MG Oral Tablet Extended Release *30 Tab*2 Sig: TAKE 1 TABLET DAILY IN THE MORNING * Telephone Encounter - Candace Rose [facility] - 05/28/2023 11:50 AM EDT Rheumatology: [...] pt of labs if appropriate. Candace Rose [facility] Clinical Pharmacist Rheumatology Department 05/28/2023,11:53 AM documented in this encounter Plan of Treatment Upcoming Encounters Date Type Department Care Team (Late st Contact Info) Description 07/01/2023 2:00 PM EST Office Visit Cardiology, [facility] [address] [place] [address] Linda Parker PA-C [address] [place], [place] [address] [address] 07/17/2023 9:00 AM EST Office Visit Orthopaedics [facility] [address] [place] [address] Hunter Bangura PA-C [address] [place] [address] 07/26/2023 10:15 AM EST NeuroDiagnostic Study Neurophysiology [facility] [address] [facility] [place] [address] Bolivar [facility]ardenas [facility] [address] 09/02/2023 12:20 PM EST Office Visit General Internal Medicine [facility] [address] [facility] [place] [address] Lilly Thorne MD 200 [facility], [place] [address] 09/16/2023 9:45 AM EST Office Visit Otolaryngology [facility] [address] [place] [address] Rocky Hines DO [address] [place] [address] 03/16/2024 3:20 PM EDT Office Visit Rheumatology [address], [place] [address] Milton El MD [address] [place] [address] [place], [place] [address] 07/06/2024 1:00 PM EST Office Visit Gynecology/Obstetric s [facility] [address] [place] [address] Mary Schreiber PA-C [address] [place] [address] Scheduled Orders Name Type Priority Associated Diagnoses [...] Comments DISCUSS TOBACCO CESSATION (REFER TO SMARTSET #3088) 1965 HIV Screening 1980 HPV/Co-Test 1995 Fecal [...] 10/19/2019 LUNG CANCER SCREENING - USE SMARTSET 17163 Completed 03/27/2021 Hepatitis B Completed 06/03/2023, 10/17, [...] <=174 mg/dL 06/10/2023 8:28 PM EDT [facility] Comment: Triglyceride Reference Ranges (mg/dL): <150 Acceptable 150-174 Borderline high 175-499 High >=500 Very high Cholesterol 179 <200 mg/dL 06/10/2023 8:28 PM EDT [facility] Comment: Total Cholesterol Reference Ranges (mg/dL): <200 Desirable 200-239 Borderline high >=240 High HDL Cholesterol 85 >49 mg/dL 8:28 PM EDT [facility] Comment: HDL Cholesterol Reference Ranges (mg/dL): >=60 High (Desirable) <50 Low (Undesirable) For Females <40 Low (Undesirable) For Males Non-HDL Cholesterol 94 <=159 mg/dL 06/10/2023 8:28 PM EDT [facility] Comment: Non-HDL Cholesterol Reference Range (mg/dL): <100 Target level for high risk ASCVD patient <130 Optimal for general population 130-159 Near optimal for general population 160-189 Borderline High 190-219 High >=220 Very High LDL Cholesterol 79 <=129 mg/dL 06/10/2023 8:28 PM EDT [facility] Comment: LDL Cholesterol Reference Ranges (mg/dL): <70 Target level for high risk ASCVD patient <100 Optimal for general population 100-129 Near optimal for general population 130-159 Borderline high 160-189 High >=190 Very high Blood Venous blood specimen / Unknown Venipuncture / Unknown 06/10/2023 10:24 AM EDT 06/10/2023 10:24 AM EDT Candace Rose [facility] LAB BLOOD ORDERAB LES LAB[facility] [address] [place] [address] * COMPREHENSIVE METABOLIC PANEL (06/10/2023 10:24 AM [...] 06/10/2023 10:24 AM EDT Candace Malena Rose [facility] LAB BLOOD ORDERAB LES Performing Organization Address City/State/[facility] Co de Phone Number [phone] [facility] [place] [address] documented in this encounter Visit Diagnoses Diagnosis Encounter for long-term (current) use of medications- Primary Encounter for long-term (current) use of other medications documented in this encounter Care Teams Logging Equipment Mechanic Relationship Specialty Start Date End Date Lilly Thorne MD [address] [facility] [address] PCP - General Internal Medicine 10/19/19 documented as of this encounter
--- OUTSIDE RECORDS SUMMARY | 2023-07-20 22:59 | External Medical Summary | Summary of Care ---
Author Name Unknown Organization [facility] Address [address] [place] [address] Phone [phone] Care Team Providers Care Lockstitch Waistline Joiner Name Role Phone Lilly Thorne MD Primary Care Provider [phone] Reason for Visit * Reason Onset Date Comments STAIR Lung Nodule 06/03/2023 Encounter Details Date Type Department Care Team Description 06/03/2023 Telephone STAIR LUNG NODULE [address] [place] [address] Program, Stair [address] [place] [address] STAIR Lung Nodule Allergies Active Allergy Reactions [...] - 06/03/2023 2:47 PM EDT Trudi AMEZCUA [id number] Benefits of Quitting Smoking Why should I [...] Quit Line [employer] Free Quitline [phone] QUIT NOW ( ) Your insurance company may also have more information and helpful programs to help you quit. Some may even help cover some of the costs. For example, [facility] members can call to find out about their smoking cessation program and medication coverage. Developed by Nathaly Mccallum MD, for [employer]. Published by [employer]. Last modified: 2005-12-28 Last reviewed: 2005-10-17 This content is reviewed periodically and is subject to change as new health information becomes available. The information is intended to inform and educate and is not a replacement for medical evaluation, advice, diagnosis or treatment by a healthcare professional. Adult Health Advisor 2006.4 Index Adult Health Advisor 2006.4 Credits Copyright 2006 [employer] and/or one of its subsidiaries. All Rights Reserved. documented in this encounter Miscellaneous Notes * Telephone Encounter - Fernanda Estrada LPN [...] Function West, Pul Function Tech 2 [address] [facility] [address] 06/17/2023 Office Visit Rheumatology Shahriar Trivedi MD [address] [place] [address] 06/17/2023 Telemedicine Psychiatry Lillie Lim CRNP [address] [place] [address] 07/01/2023 Office Visit Cardiology Linda Parker PA-C [address] [place] [phone] 07/17/2023 Office Visit Orthopedics Hunter Bangura PA-C [address] [place] [address] 09/02/2023 Office Visit Internal Medicine Lilly Thorne MD 200 [place] [address] 09/16/2023 Office Visit Otolaryngology Rocky Hines DO [address] [place] [address] 07/06/2024 Office Visit Gynecology Obstetrics Mary Schreiber PA-C [address] [place] [address] Scheduled Procedures Name Priority Associated Diagnoses Date/Ti me COLONOSCOPY FLEXIBLE PROXIMA L DIAGNOSTIC Recall Special screening for malignant neoplasms, colon Health Maintenance Due Date Last Done Comments DISCUSS TOBACCO CESSATION (REFER TO SMARTSET #3875) 1965 HIV Screening 1980 Alpha-1 Antitrypsin 1983 [...] Additional history exists Lipid Panel 07/10/2026 07/10/2021, /, 07/24/2016, Additional history exists Colonoscopy 03/07/2030 03/07/2020, 03/07/2020 Colorectal Cancer Screening 03/07/2030 Pneumococcal Vaccine: Pediatrics (0 to 5 Years) and At-Risk Patients (6 to 64 Years) (4 - PPSV23 or PCV20) 2030 03/02/2019, 09/09/2015, 10/11/2009 DTaP,Tdap,and Td Vaccines (3 - Td or Tdap) 06/28/2030 06/28/2020, 02/24/2010 Zoster Vaccines Completed 02/01/2020, 10/19/2019 LUNG CANCER SCREENING - USE SMARTSET [id number] Completed 03/27/2021 Hepatitis B Completed 06/03/2023, 10/17, [...] health documented in this encounter Care Teams Lockstitch Waistline Joiner Relationship Specialty Start Date End Date Lilly Thorne MD [address] [place] [address] PCP - General Internal Medicine 10/19/19 documented as of this encounter
--- OUTSIDE RECORDS SUMMARY | 2023-07-20 22:59 | External Medical Summary ---
Author Name Unknown Address Unknown Organization K0G:LABORATORY [facility] [address] [place] [address] Laboratory Report Ordering Provider Test Date Status VAHE WATSON 06/10/2023 10:24:44 Final Observation Date Value Abnormality Reference (Units ) Status BUN 06/10/2023 10:24:44 17 6-20 (mg/dL) Final Creatinine 06/10/2023 10:24:44 0.8 0.5-1.0 (mg/dL) Final Glomerular filtration rate/1.73 sq M.predicted [Volume Rate/Area] in Serum, Plasma or Blood by Creatinine-based formula (CKD-EPI) 06/10/2023 10:24:44 89 >=60 (mL/min) Final eGFR is calculated based on the CKD-EPI 2020 equation SODIUM 06/10/2023 10:24:44 140 135-146 (m mol/L) Final Potassium 06/10/2023 10:24:44 4.2 3.5-5.1 (m mol/L) Final Cl 06/10/2023 10:24:44 103 98-107 (mm ol/L) Final CO2 06/10/2023 10:24:44 23 22-32 (mmo l/L) Final Anion gap 06/10/2023 10:24:44 14 7-15 (mmol /L) Final Glucose 06/10/2023 10:24:44 76 70-120 (mg /dL) Final Albumin 06/10/2023 10:24:44 4.5 3.8-5.0 (g /dL) Final AST (Aspartate aminotransferase) 06/10/2023 10:24:44 19 10-35 (U/L) Final Alk Phos 06/10/2023 10:24:44 59 35-130 (U/ L) Final Bilirubin, Total 06/10/2023 10:24:44 0.9 <=1 .2 (mg/dL) Final Calcium 06/10/2023 10:24:44 9.3 8.4-10.2 ( mg/dL) Final Protein 06/10/2023 10:24:44 6.9 6.0-8.3 (g /dL) Final ALT (Alanine aminotransferase) 06/10/2023 10:24:44 18 10-35 (U/L) Final Performing Location [facility] [address] - [address] [place] [address]
--- OUTSIDE RECORDS SUMMARY | 2023-07-20 22:59 | External Medical Summary | Summary of Care ---
Author Name Unknown Organization [facility] Address [address] [place] [facility] [place] [address] Phone [phone] Care Team Providers Care Resident Care Manager Name Role Phone Lilly Thorne MD Primary Care Provider [phone] Reason for Visit * Reason Comments eRx-Medication Refill Encounter Details Date Type Department Care Team (Late st Contact Info) Description 05/27/2023 Telephone Rheumatology [place] [address] [address] Milton El MD [facility] [place] [address] eRx-Medication Refill Allergies Active Allergy Reactions Criticality Noted Date Comments Ivp Dye Anaphylaxis High 10/05/1998 anaphylactic RX Nickel 02/29/2020 Nickel earrings-redness , swelling documented as of this encounter (statuses as of 06/18/2023) Medications Medication Sig Dispensed Refills Start Date [...] as of this encounter (statuses as of 06/18/2023) Active Problems Problem Noted Date Diagnosed Date [...] as of this encounter (statuses as of 06/18/2023) Resolved Problems Problem Noted Date Diagnosed Date [...] as of this encounter (statuses as of 06/18/2023) Immunizations Name Administration Dates Next Due Covid-19 [...] Notes * Telephone Encounter - Candace Rose [facility] - 06/11/2023 9:07 AM EDT Reviewed labs done 06/10/23. Kidney function, liver function, lipids, and blood count results are appropriate as per rheumatology medication protocol. Will wait to send in additional refills of Rinvoq until after upcoming f/u appt on 06/17/23. Thank you, Candace Rose PharmD [facility] Clinical Pharmacist Rheumatology Department [phone] 06/11/2023 * Telephone Encounter - Candace Rose [...] Pharmacist Centralized Clinical Pharmacy Services ([facility]PS) ([facility]) [phone] 05/28/2023, 6:02 PM * Telephone Encounter - [...] fasting * Telephone Encounter - Candace Rose [facility] - 05/28/2023 11:56 AM EDT Pending Prescriptions: Disp Refills Rinvoq 15 MG Oral Tablet Extended Release *30 Tab*2 Sig: TAKE 1 TABLET DAILY IN THE MORNING * Telephone Encounter - Candace Rose [facility] - 05/28/2023 11:50 AM EDT Rheumatology: Refill [...] 07/01/2023 2:00 PM EST Office Visit Cardiology, [facility] [address] [place] [address] Linda Parker PA-C [address] [place], [place] [address] [address] 07/17/2023 9:00 AM EST Office Visit Orthopaedics [facility] [address] [place] [address] Hunter Bangura PA-C [address] [place] [address] 07/26/2023 10:15 AM EST NeuroDiagnostic Study Neurophysiology [facility] [place] [address] Bolivar Cardenas MD 200 [facility] [address] 09/02/2023 12:20 PM EST Office Visit General Internal Medicine [facility] 200 [facility] [place] [address] Lilly Thorne MD 200 [facility], [place] [address] 09/16/2023 9:45 AM EST Office Visit Otolaryngology [facility] [address] [place] [address] Rocky Hines DO [address] [place] [address] 03/16/2024 3:20 PM EDT Office Visit Rheumatology [address], [place] [address] Milton El MD [address] [place] [address] [place], [place] [address] 07/06/2024 1:00 PM EST Office Visit Gynecology/Obstetric s [facility] [address] [place] [address] Mary Schreiber PA-C [address] [place] [address] Scheduled Orders Name Type Priority Associated Diagnoses [...] Comments DISCUSS TOBACCO CESSATION (REFER TO SMARTSET #9497) 1965 HIV Screening 1980 HPV/Co-Test 1995 Fecal [...] 10/19/2019 LUNG CANCER SCREENING - USE SMARTSET 72297 Completed 03/27/2021 Hepatitis B Completed 06/03/2023, 10/17, [...] mg/dL 06/10/2023 8:28 PM EDT LABORATORY [facility] Comment: Triglyceride Reference Ranges (mg/dL): <150 Acceptable 150-174 Borderline high 175-499 High >=500 Very high Cholesterol 179 <200 mg/dL 06/10/2023 8:28 PM EDT LABORATORY [facility] Comment: Total Cholesterol Reference Ranges (mg/dL): <200 Desirable 200-239 Borderline high >=240 High HDL Cholesterol 85 >49 mg/dL 8:28 PM EDT LABORATORY [facility] Comment: HDL Cholesterol Reference Ranges (mg/dL): >=60 High (Desirable) <50 Low (Undesirable) For Females <40 Low (Undesirable) For Males Non-HDL Cholesterol 94 <=159 mg/dL 06/10/2023 8:28 PM EDT LAB[facility]ATORY [facility] Comment: Non-HDL Cholesterol Reference Range (mg/dL): <100 Target level for high risk ASCVD patient <130 Optimal for general population 130-159 Near optimal for general population 160-189 Borderline High 190-219 High >=220 Very High LDL Cholesterol 79 <=129 mg/dL 06/10/2023 8:28 PM EDT LABORATORY [facility] Comment: LDL Cholesterol Reference Ranges (mg/dL): <70 Target level for high risk ASCVD patient <100 Optimal for general population 100-129 Near optimal for general population 130-159 Borderline high 160-189 High >=190 Very high Blood Venous blood specimen / Unknown Venipuncture / Unknown 06/10/2023 10:24 AM EDT 06/10/2023 10:24 AM EDT Candace Rose [facility] LAB BLOOD ORDERAB LES [facility]ORY [facility] [address] [place] [address] * COMPREHENSIVE METABOLIC PANEL (06/10/2023 10:24 AM [...] 06/10/2023 10:24 AM EDT Candace Malena Rose [facility] LAB BLOOD ORDERAB LES Performing Organization Address City/State/[facility] Co de Phone Number [phone] [facility] [place] [address] documented in this encounter Visit Diagnoses Diagnosis Encounter for long-term (current) use of medications- Primary Encounter for long-term (current) use of other medications documented in this encounter Care Teams Resident Care Manager Relationship Specialty Start Date End Date Lilly Thorne MD 200 [place] [address] PCP - General Internal Medicine 10/19/19 documented as of this encounter
--- OUTSIDE RECORDS SUMMARY | 2023-07-20 22:59 | External Medical Summary | Summary of Care ---
Author Name Unknown Organization [facility] Address [address] [place] [address] Phone [phone] Care Team Providers Care District Service Manager Name Role Phone Lilly Thorne MD Primary Care Provider [phone] Reason for Visit * Reason Comments eRx-Medication Refill Encounter Details Date Type Department Care Team Description 06/03/2023 Refill General Internal Medicine [facility] 200 [facility] [place] [address] Lilly Thorne MD [address] [place] [address] HTN, goal below 140/90 Allergies Active Allergy Reactions Severity Noted Date [...] Date Recorded Female 07/14/2019 2:[address] Job Start Date Occupation Industry Not on file Not on file Not on file documented as of this encounter Miscellaneous Notes * Telephone Encounter - Mansoor Carmona, [facility] - 06/03/2023 4:38 PM EDT Refused Prescriptions: Disp Refills Losartan Potassium 50 MG Oral Tablet (Coza*30 Tab*0 Sig: TAKE 1 TABLET BY MOUTH EVERY DAY IN THE MORNINGRefused By: MANSOOR CARMONA for Refusal: Duplicate Request documented in this encounter Plan of Treatment Upcoming Encounters Date Type Specialty Care Team Description 06/10/2023 PulmDiagnostic Pulmonary Function West, Pulm Function Tech [address] [place] [address] 06/17/2023 Office Visit Rheumatology Shahriar Trivedi MD [address] [facility] [place] [address] 06/17/2023 Telemedicine Psychiatry Lillie Lim CRNP [address] [place] [address] 07/01/2023 Office Visit Cardiology Linda Parker PA-C [address] [place] [address] 07/17/2023 Office Visit Orthopedics Hunter Bangura PA-C [address] [place] [address] 09/02/2023 Office Visit Internal Medicine Lilly Thorne MD 200 [place] [address] 09/16/2023 Office Visit Otolaryngology Rocky Hines DO [address] [place] [address] 07/06/2024 Office Visit Gynecology Obstetrics Mary Schreiber PAPhong [address] [place] [address] Scheduled Procedures Name Priority Associated Diagnoses Date/Ti me COLONOSCOPY FLEXIBLE PROXIMA L DIAGNOSTIC Recall Special screening for malignant neoplasms, colon Health Maintenance Due Date Last Done Comments DISCUSS TOBACCO CESSATION (REFER TO SMARTSET #0402) 1965 HIV Screening 1980 Alpha-1 Antitrypsin 1983 [...] 10/19/2019 LUNG CANCER SCREENING - USE SMARTSET 24759 Completed 03/27/2021 Hepatitis B Completed 06/03/2023, 10/17, 05/01/2021 GARDASIL-HPV IMMUNIZATION SERIES Aged Out No longer eligible based on patient's age to complete this topic MENINGOCOCCAL (MENACTRA/MENVEO) Aged Out No longer eligible based on patient's age to complete this topic documented as of this encounter Medical Devices Not on filedocumented as of this encounter Visit Diagnoses Diagnosis HTN, goal below 140/90 Unspecified essential hypertension documented in this encounter Care Teams District Service Manager Relationship Specialty Start Date End Date Lilly Thorne MD [address] [place] [id number] PCP - General Internal Medicine 10/19/19 documented as of this encounter
--- OUTSIDE RECORDS SUMMARY | 2023-07-20 23:00 | External Medical Summary | Summary of Care ---
Author Name Unknown Organization [facility] Address [address] [place] [address] Phone [phone] Care Team Providers Care Lubricating Specialist Name Role Phone Lilly Thorne MD Primary Care Provider [phone] Encounter Details Date Type Department Care Team Description 05/04/2023 Patient Reported Data Patient Survey Ortho [facility] Allergies Active Allergy Reactions Severity Noted Date Comments Ivp Dye Anaphylaxis High 10/05/1998 anaphylactic RX Nickel 02/29/2020 Nickel earrings-redness , swelling documented as of this encounter (statuses as of 05/04/2023) Medications Medication Sig Dispensed Refills Start Date End Date Status Naproxen Sodium 220 MG Oral Tablet Take 1 Tablet by mouth. 2 tabs every 12 hours as needed for pain 0 Active Fexofenadine HCl 180 MG Oral Tablet (Nguyen) Take 1 Tablet by mouth in the morning. 0 Active Metamucil Smooth Texture 58.6 % Oral Powder (Psyllium)Indications :Loose stools One scoop in 8 ounces of water daily, may inc up to three times a day.-st 03/20/2021 0 03/20/2021 Active traZODone HCl 50 MG Oral Tablet (Desyrel)Indications: Major depressive disorder, recurrent episode, moderate (HCC),Panic disorder with agoraphobia and mild panic attacks,ADHD (attention deficit hyperactivity disorder), combined type Take by mouth 1 Tablet before bedtime. 90 Tablet 0 11/14/2021 Active Omeprazole 20 MG Oral Capsule Delayed Release (PriLOSEC)Indications :Gastroesophageal reflux disease, unspecified whether esophagitis present,Esophageal dysphagia,Encounter for long-term (current) use of medications TAKE 1 CAPSULE BY MOUTH EVERY DAY 1 HOUR BEFORE THE FIRST MEAL 90 Capsule 3 08/05/2022 Active Ventolin HFA 108 (90 Base) MCG/ACT Inhalation Aerosol SolutionIndications:C OPD, moderate (HCC) INHALE 2 PUFFS BY MOUTH EVERY 4 HOURS NEEDED FOR COUGH, SHORTNESS OF BREATH OR WHEEZING. 18 g 1 09/03/2022 Active buPROPion HCl ER (SR) 200 MG Oral Tablet Extended Release 12 Hour (Wellbutrin SR) Take one pill in the morning and one pill around 3pm. 60 Tablet 4 09/11/2022 Active Hydroxychloroquine Sulfate 200 MG Oral Tablet (Plaquenil)Indication s:Rheumatoid arthritis involving multiple sites with positive rheumatoid factor ([facility]) Take 1.5 Tablets by mouth at bedtime. 180 Tablet 1 12/03/2022 Active Folic Acid 1 MG Oral TabletIndications:Rhe umatoid arthritis involving multiple sites with positive rheumatoid factor (HCC) Take 3 Tablets by mouth in the morning. 270 Tablet 4 12/03/2022 Active Rinvoq 15 MG Oral Tablet Extended Release 24 Hour (Upadacitinib ER) Take 1 Tablet by mouth in the morning. 30 Tablet 5 12/19/2022 Active Escitalopram Oxalate 10 MG Oral Tablet (Lexapro) Take 1 Tablet by mouth in the morning. 30 Tablet 2 12/27/2022 Active Trelegy Ellipta 100-62.5-25 MCG/ACT Aerosol Powder Breath Activated (Fluticasone-Umeclidi nium-Vilanterol)Indic ations:COPD, moderate (HCC),Pulmonary emphysema, unspecified emphysema type (HCC) INHALE 1 PUFF BY MOUTH DAILY 60 Each 5 12/28/2022 Active Leflunomide 10 MG Oral Tablet (Arava)Indications:Rh eumatoid arthritis involving multiple sites with positive rheumatoid factor ([facility]) Take 1 Tablet by mouth in the morning. 90 Tablet 1 01/03/2023 Active dilTIAZem HCl ER Beads 120 MG Oral Capsule Extended Release 24 HourIndications:SVT (supraventricular tachycardia) ([facility]) TAKE 2 CAPSULES DAILY 60 Capsule 0 03/12/2023 Active Losartan Potassium 50 MG Oral Tablet (Cozaar)Indications:H TN, goal below 140/90 TAKE 1 TABLET BY MOUTH EVERY DAY IN THE MORNING 30 Tablet 0 04/10/2023 Active Metoprolol Succinate ER 25 MG Oral Tablet Extended Release 24 Hour (toPROL XL)Indications:Paroxy smal SVT (supraventricular tachycardia) (HCC) TAKE 1 TABLET BY MOUTH EVERY DAY 30 Tablet 11 04/15/2023 Active documented as of this encounter (statuses as of 05/04/2023) Active Problems Problem Noted Date COPD, group [...] as of this encounter (statuses as of 05/04/2023) Resolved Problems Problem Noted Date Resolved Date [...] as of this encounter (statuses as of 05/04/2023) Immunizations Name Administration Dates Next Due Covid-19 Ad26, Single Dose (Edson/J&J) 01/19/2021 Hepatitis B, 20+ yrs 10/30/2021,05/01/2021 PPD 01/20/2007 Pneumococcal Conjugate Vacc, 13 Valent (Prevnar) 03/02/2019 Pneumococcal Polysaccharide PPV23 (Pneumovax) 09/09/2015,10/11/2009 Seasonal Influenza, PF, 6 mo ns & Above, IM , (Flulaval) 06/28/2020,07/07/2019 Seasonal Influenza, Quadriva lent, No Preserve, [...] Encounters Date Type Specialty Care Team Description 05/30/2023 Office Visit Orthopedics Hunter Bangura PA-C [address] [place] [address] 06/03/2023 Office Visit Internal Medicine Lilly Thorne MD [address] [place] [address] 06/17/2023 Office Visit Rheumatology Shahriar Trivedi MD [address] [facility] [place] [address] 09/16/2023 Office Visit Otolaryngology Rocky Hines DO [address] [place] [phone] Scheduled Procedures Name Priority Associated Diagnoses Date/Ti me COLONOSCOPY FLEXIBLE PROXIMA L DIAGNOSTIC Recall Special screening for malignant neoplasms, colon Health Maintenance Due Date Last Done Comments DISCUSS TOBACCO CESSATION (REFER TO SMARTSET #4389) 1965 HIV Screening 1980 Alpha-1 Antitrypsin 1983 HPV/Co-Test 1995 Fecal Occult Blood Test 2010 Sigmoidoscopy 2010 COVID-19 Vaccine (2 - Edson risk series) 02/16/2021 01/19/2021 Hepatitis B (3 of 3 - 19+ 3-dose series) 12/25/2021 10/30/2021, 05/01/2021 Cologuard 12/28/2021 12/28/2018 Mammogram 01/29/2023 01/29/2022, 02/2021, 01/18/2020, Additional history exists Influenza Vaccine (FLU shot) (#1) 2023 06/28/2020, 07/07/2019, 07/24/2016, Additional history exists Depression Screening 07/18/2023 07/18/2022 Cervical Cancer Screening 11/08/2023 Pap Smear 11/08/2023 11/07/2020, 06/19, 06/30/2015, Additional history exists O2 ASSESSMENT COMPLETED IN PAST YEAR FOR COPD 03/18/2024 03/18/2023 Diabetes Screening 03/20/2026 03/20/2023, 0 12/03/2022, 01/17/2022, [...] 10/19/2019 LUNG CANCER SCREENING - USE SMARTSET 37886 Completed 03/27/2021 GARDASIL-HPV IMMUNIZATION SERIES Aged Out No longer eligible based on patient's age to complete this topic MENINGOCOCCAL (MENACTRA/MENVEO) Aged Out No longer eligible based on patient's age to complete this topic documented as of this encounter Medical Devices Not on filedocumented as of this encounter Care Teams Lubricating Specialist Relationship Specialty Start Date End Date Lilly Thorne MD [address] [place] [address] PCP - General Internal Medicine 10/19/19 documented as of this encounter
--- OUTSIDE RECORDS SUMMARY | 2023-07-20 23:00 | External Medical Summary | Summary of Care ---
Author Name Unknown Organization [facility] Address [address] [place] [address] Phone [phone] Care Team Providers Care Wringer Machine Operator Name Role Phone Lilly Thorne MD Primary Care Provider [phone] Encounter Details Date Type Department Care Team [...] multiple sites with positive rheumatoid factor ([facility]) Take 1.5 Tablets by mouth at bedtime. [...] multiple sites with positive rheumatoid factor ([facility]) Take 1 Tablet by mouth in the morning. 90 Tablet 1 01/03/2023 Active dilTIAZem HCl ER Beads 120 MG Oral Capsule Extended Release 24 HourIndications:SVT (supraventricular tachycardia) ([facility]) TAKE 2 CAPSULES DAILY 60 Capsule 0 [...] Bangura PA-C [address] [place] [address] 06/03/2023 Office Visit Internal Medicine Lilly Thorne MD [address] [place] [address] 06/17/2023 Office Visit Rheumatology Shahriar Trivedi MD [address] [facility] [place] [place] [address] 09/16/2023 Office Visit Otolaryngology Rocky Hines DO [address] [place] [phone] Scheduled Procedures Name Priority Associated Diagnoses Date/Ti me COLONOSCOPY FLEXIBLE PROXIMA L DIAGNOSTIC Recall Special screening for malignant neoplasms, colon Health Maintenance Due Date Last Done Comments DISCUSS TOBACCO CESSATION (REFER TO SMARTSET #6812) 1965 HIV Screening 1980 Alpha-1 Antitrypsin 1983 [...] 10/19/2019 LUNG CANCER SCREENING - USE SMARTSET 37626 Completed 03/27/2021 GARDASIL-HPV IMMUNIZATION SERIES Aged Out No longer eligible based on patient's age to complete this topic MENINGOCOCCAL (MENACTRA/MENVEO) Aged Out No longer eligible based on patient's age to complete this topic documented as of this encounter Medical Devices Not on filedocumented as of this encounter Care Teams Wringer Machine Operator Relationship Specialty Start Date End Date Lilly Thorne MD [address] [place] [address] PCP - General Internal Medicine 10/19/19 documented as of this encounter
--- OUTSIDE RECORDS SUMMARY | 2023-07-20 23:00 | External Medical Summary | Summary of Care ---
Author Name Unknown Organization [facility] Address [address] [place] [address] Phone [phone] Care Team Providers Care Child Support Investigator Name Role Phone Lilly Thorne MD Primary Care Provider [phone] Encounter Details Date Type Department Care Team [...] involving multiple sites with positive rheumatoid factor ([facility]) Take 1.5 Tablets by mouth at bedtime. [...] involving multiple sites with positive rheumatoid factor ([facility]) Take 1 Tablet by mouth in the morning. 90 Tablet 1 01/03/2023 Active dilTIAZem HCl ER Beads 120 MG Oral Capsule Extended Release 24 HourIndications:SVT (supraventricular tachycardia) ([facility]) TAKE 2 CAPSULES DAILY 60 Capsule 0 [...] Bangura PA-C [address] [place] [address] 06/03/2023 Office Visit Internal Medicine Lilly Thorne MD [address] [place] [address] 06/17/2023 Office Visit Rheumatology Shahriar Trivedi MD [address] [facility] [place] [address] 09/16/2023 Office Visit Otolaryngology Rocky Hines DO [address] [place] [id number] Scheduled Procedures Name Priority Associated Diagnoses Date/Ti me COLONOSCOPY FLEXIBLE PROXIMA L DIAGNOSTIC Recall Special screening for malignant neoplasms, colon Health Maintenance Due Date Last Done Comments DISCUSS TOBACCO CESSATION (REFER TO SMARTSET #1916) 1965 HIV Screening 1980 Alpha-1 Antitrypsin 1983 [...] 10/19/2019 LUNG CANCER SCREENING - USE SMARTSET 76349 Completed 03/27/2021 GARDASIL-HPV IMMUNIZATION SERIES Aged Out No longer eligible based on patient's age to complete this topic MENINGOCOCCAL (MENACTRA/MENVEO) Aged Out No longer eligible based on patient's age to complete this topic documented as of this encounter Medical Devices Not on filedocumented as of this encounter Care Teams Child Support Investigator Relationship Specialty Start Date End Date Lilly Thorne MD [address] [place] [address] PCP - General Internal Medicine 10/19/19 documented as of this encounter
--- OUTSIDE RECORDS SUMMARY | 2023-07-20 23:00 | External Medical Summary | Summary of Care ---
Author Name Unknown Organization [facility] Address [address] [place] [address] Phone [phone] Care Team Providers Care Hand Cloth Folder Name Role Phone Lilly Thorne MD Primary Care Provider [phone] Encounter Details Date Type Department Care Team [...] involving multiple sites with positive rheumatoid factor ([facility]) Take 1.5 Tablets by mouth at bedtime. [...] involving multiple sites with positive rheumatoid factor ([facility]) Take 1 Tablet by mouth in the morning. 90 Tablet 1 01/03/2023 Active dilTIAZem HCl ER Beads 120 MG Oral Capsule Extended Release 24 HourIndications:SVT (supraventricular tachycardia) ([facility]) TAKE 2 CAPSULES DAILY 60 Capsule 0 [...] Dates Next Due Covid-19 Ad26, Single Dose (Edsno/J&J) 01/19/2021 Hepatitis B, 20+ yrs 10/30/2021,05/01/2021 PPD [...] Bangura PA-C [address] [place] [address] 06/03/2023 Office Visit Internal Medicine Lilly Thorne MD [address] [place] [address] 06/17/2023 Office Visit Rheumatology Shahriar Trivedi MD [address] [place] [address] 09/16/2023 Office Visit Otolaryngology Rocky Hines DO [address] [place] [phone] Scheduled Procedures Name Priority Associated Diagnoses Date/Ti me COLONOSCOPY FLEXIBLE PROXIMA L DIAGNOSTIC Recall Special screening for malignant neoplasms, colon Health Maintenance Due Date Last Done Comments DISCUSS TOBACCO CESSATION (REFER TO SMARTSET #1896) 1965 HIV Screening 1980 Alpha-1 Antitrypsin 1983 [...] 10/19/2019 LUNG CANCER SCREENING - USE SMARTSET 52692 Completed 03/27/2021 GARDASIL-HPV IMMUNIZATION SERIES Aged Out No longer eligible based on patient's age to complete this topic MENINGOCOCCAL (MENACTRA/MENVEO) Aged Out No longer eligible based on patient's age to complete this topic documented as of this encounter Medical Devices Not on filedocumented as of this encounter Care Teams Hand Cloth Folder Relationship Specialty Start Date End Date Lilly Thorne MD [address] [place] [address] PCP - General Internal Medicine 10/19/19 documented as of this encounter
--- OUTSIDE RECORDS SUMMARY | 2023-07-20 23:00 | External Medical Summary | Summary of Care ---
Author Name Unknown Organization [facility] Address [address] [facility] [place] [address] Phone [phone] Care Team Providers Care Log Cut Off Sawyer Name Role Phone Lilly Thorne MD Primary Care Provider [phone] Reason for Visit * Reason Comments Follow Up L CTS Encounter Details Date Type Department Care Team Description 05/30/2023 Office Visit Orthopaedics [facility] [address] [place] [address] Hunter Bangura PA-C [address] [place] [address] Carpal tunnel syndrome of left wrist* Allergies Active Allergy Reactions Severity Noted Date Comments Ivp Dye Anaphylaxis High 10/05/1998 anaphylactic RX Nickel 02/29/2020 Nickel earrings-redness , swelling documented as of this encounter (statuses as of 05/30/2023) Medications Medication Sig Dispensed Refills Start Date End Date Status Naproxen Sodium 220 MG Oral Tablet Take 1 Tablet by mouth. 2 tabs every 12 hours as needed for pain 0 Active Fexofenadine HCl 180 MG Oral Tablet (Nguyen) Take 1 Tablet by mouth in the morning. 0 Active Metamucil Smooth Texture 58.6 % Oral Powder (Psyllium)Indication s:Loose stools One scoop in 8 ounces of water daily, may inc up to three times a day.-st 03/20/2021 0 03/20/2021 Active Omeprazole 20 MG Oral Capsule Delayed Release (PriLOSEC)Indication s:Gastroesophageal reflux disease, unspecified whether esophagitis present,Esophageal dysphagia,Encounter for long-term (current) use of medications TAKE 1 CAPSULE BY MOUTH EVERY DAY 1 HOUR BEFORE THE FIRST MEAL 90 Capsule 3 08/05/2022 Active Ventolin HFA 108 (90 Base) MCG/ACT Inhalation Aerosol SolutionIndications: COPD, moderate (HCC) INHALE 2 PUFFS BY MOUTH EVERY 4 HOURS NEEDED FOR COUGH, SHORTNESS OF BREATH OR WHEEZING. 18 g 1 09/03/2022 Active Hydroxychloroquine Sulfate 200 MG Oral Tablet (Plaquenil)Indicatio ns:Rheumatoid arthritis involving multiple sites with positive rheumatoid factor (HCC) Take 1.5 Tablets by mouth at bedtime. 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 270 Tablet 4 12/03/2022 Active Trelegy Ellipta 100-62.5-25 MCG/ACT Aerosol Powder Breath Activated (Fluticasone-Umeclid inium-Vilanterol)Ind ications:COPD, moderate (HCC),Pulmonary emphysema, unspecified emphysema type (HCC) INHALE 1 PUFF BY MOUTH DAILY 60 Each 5 12/28/2022 Active Leflunomide 10 MG Oral Tablet (Arava)Indications:R heumatoid arthritis involving multiple sites with positive rheumatoid factor (HCC) Take 1 Tablet by mouth in the morning. 90 Tablet 1 01/03/2023 Active dilTIAZem HCl ER Beads 120 MG Oral Capsule Extended Release 24 HourIndications:SVT (supraventricular tachycardia) TAKE 2 CAPSULES DAILY 60 Capsule 0 03/12/2023 Active Metoprolol Succinate ER 25 MG Oral Tablet Extended Release 24 Hour (toPROL XL)Indications:Parox ysmal SVT (supraventricular tachycardia) TAKE 1 TABLET BY MOUTH EVERY DAY 30 Tablet 11 04/15/2023 Active Losartan Potassium 50 MG Oral Tablet (Cozaar)Indications: HTN, goal below 140/90 TAKE 1 TABLET BY MOUTH EVERY DAY IN THE MORNING 30 Tablet 0 05/09/2023 Active Escitalopram Oxalate 10 MG Oral Tablet [...] THE MORNING 30 Tablet 2 05/28/2023 Active Klor-Con M10 10 MEQ Oral Tablet Extended Release Take 1 Tablet by mouth in the morning. 0 05/13/2023 Active documented as of this encounter (statuses as of 05/30/2023) Active Problems Problem Noted Date COPD, group [...] as of this encounter (statuses as of 05/30/2023) Resolved Problems Problem Noted Date Resolved Date 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 01/17/2022 01/17/2022 COPD, moderate 10/26/2019 04/04/2023 Overview: Per COPD GOLD Classification Encounter for screening mammogram for breast can cer 10/19/2019 06/28/2020 Screen for colon cancer 10/19/2019 06/28/20 20 Overview: 7/20--sig tics--rpt 10 yrs Palpitations 12/28/2018 10/19/2019 Encounter [...] as of this encounter (statuses as of 05/30/2023) Immunizations Name Administration Dates Next Due Covid-19 [...] as of this encounter Progress Notes * Hunter Bangura PA-C - 05/30/2023 9:43 AM EDT Six week follow-up of left carpal tunnel syndrome after bracing. Patient reports mild improvement. We discussed treatment options in the past, including injections versus surgery consult if the bracing was not impressive. Patient feels like her symptoms are acceptable and actually improving. Will reexamined and assess today. complete review of systems negative General: alert and oriented x3 female, no acute distress, appears currently stated age, pleasant, well nourished Skin: Left upper extremity does not reveal any erythema, ecchymosis, abrasion, laceration, skin breakdown otherwise, no atrophy Neurovascular: Left upper extremity reveals distal pulses +2, capillary refill is under 2 seconds, good sensation light touch, +5 extension service advisor strength, positive Phalen's and Durkan's but Tinel's is quite negative today improving her CTS 6 score by 1 point Musculoskeletal: Exam of the left wrist, hand, fingers and thumb reveal full range of motion 5/5 strength. Bony prominences are nontender. All associated and surrounding tendinous structures appear to be intact Her CTS 6 score has improved 1 point from 16.5-15.5 Impression: Left carpal tendinous syndrome, mild improvement with bracing Plan: Today 's findings were discussed with the patient. They were educated regarding their diagnosis. Multiple treatment options discussed and agreed upon, including 6 additional weeks of bracing. Patient feels like this is beneficial for her and we do not need to echeverria injectables or surgery. If, the patient is not overly impressed in 6 weeks, I would consider and revisit the injection conversation. The patient is in agreement. The patient has no other questions or concerns. Pleased with today's care. Call sooner if needed. This chart was completed in part utilizing [employer] Speech Voice Recognition Software. Grammatical errors, random word insertions, prounoun errors, and incomplete sentences are an occasional consequence of this system due to software limitations, ambient noise, and hardware issues. Any formal questions or concerns about the content, text, or information contained within the body of this dictation should be directly addressed to the provider for clarification. documented in this encounter Nursing Notes * MARIA EUGENIA Bright - 05/30/2023 8:51 AM EDT Pt presents today for follow up LCTS Has been bracing since last visit MARIA EUGENIA Bright documented in this encounter Plan of Treatment Upcoming Encounters Date Type Specialty Care Team Description 06/03/2023 [facility] [address] 06/17/2023 Office Visit Rheumatology Shahriar Trivedi MD [address] [facility] [place], [place] [address] 06/17/2023 Telemedicine Psychiatry Lillie Lim CRNP [address] [place] [address] 07/01/2023 Office Visit Cardiology Linda Parker PA-C [address] [place] [phone] 07/17/2023 Office Visit Orthopedics Hunter Bangura PA-C [address] [place] [address] 09/16/2023 Office Visit Otolaryngology Rocky Hines DO [address] [place] [address] Scheduled Procedures Name Priority Associated Diagnoses Date/Ti [...] 05/01/2021 Cologuard 12/28/2021 12/28/2018 Mammogram 01/29/2023 01/29/2022, 0602/2021, [...] 10/19/2019 LUNG CANCER SCREENING - USE SMARTSET 23619 Completed 03/27/2021 GARDASIL-HPV IMMUNIZATION SERIES Aged Out No longer eligible based on patient's age to complete this topic MENINGOCOCCAL (MENACTRA/MENVEO) Aged Out No longer eligible based on patient's age to complete this topic documented as of this encounter Medical Devices Not on filedocumented as of this encounter Visit Diagnoses Diagnosis Carpal tunnel syndrome of left wrist- Primary Carpal tunnel syndrome documented in this encounter Care Teams Log Cut Off Sawyer Relationship Specialty Start Date End Date Lilly Thorne MD [address] [place] [address], [place] [address] PCP - General Internal Medicine 10/19/19 documented as of this encounter
--- OUTSIDE RECORDS SUMMARY | 2023-07-20 23:00 | External Medical Summary | Summary of Care ---
Author Name Unknown Organization [facility] [address] [facility] [address] Phone [phone] Care Team Providers Care Water Commissioner Name Role Phone Lilly Thorne MD Primary Care Provider [phone] Reason for Visit * Reason Comments eRx-Medication Refill Encounter Details Date Type Department Care Team Description 04/14/2023 Refill Cardiology, [facility] [address] [place] [id number] Santo Navas MD [address] [place] [id number] Paroxysmal SVT (supraventricular tachycardia) ([facility])* Allergies Active Allergy Reactions Severity Noted Date Comments Ivp Dye Anaphylaxis High 10/05/1998 anaphylactic RX Nickel 02/29/2020 Nickel earrings-redness , swelling documented as of this encounter (statuses as of 04/26/2023) Medications Medication Sig Dispensed Refills Start Date End Date Status Naproxen Sodium 220 MG Oral Tablet Take 1 Tablet by mouth. 2 tabs every 12 hours as needed for pain 0 Active Fexofenadine HCl 180 MG Oral Tablet (Nguyen) Take 1 Tablet by mouth in the morning. 0 Active Metamucil Smooth Texture 58.6 % Oral Powder (Psyllium)Indicati ons:Loose stools One scoop in 8 ounces of water daily, may inc up to three times a day.-st 03/20/2021 0 03/20/2021 Active traZODone HCl 50 MG Oral Tablet (Desyrel)Indicatio ns:Major depressive disorder, recurrent episode, moderate (HCC),Panic disorder with agoraphobia and mild panic attacks,ADHD (attention deficit hyperactivity disorder), combined type Take by mouth 1 Tablet before bedtime. 90 Tablet 0 11/14/2021 Active Omeprazole 20 MG Oral Capsule Delayed Release (PriLOSEC)Indicati ons:Gastroesophage al reflux disease, unspecified whether esophagitis present,Esophageal dysphagia,Encounte r for long-term (current) use of medications TAKE 1 CAPSULE BY MOUTH EVERY DAY 1 HOUR BEFORE THE FIRST MEAL 90 Capsule 3 08/05/2022 Active Ventolin HFA 108 (90 Base) MCG/ACT Inhalation Aerosol SolutionIndication s:COPD, moderate (HCC) INHALE 2 PUFFS BY MOUTH EVERY 4 HOURS NEEDED FOR COUGH, SHORTNESS OF BREATH OR WHEEZING. 18 g 1 09/03/2022 Active buPROPion HCl ER (SR) 200 MG Oral Tablet Extended Release 12 Hour (Wellbutrin SR) Take one pill in the morning and one pill around 3pm. 60 Tablet 4 09/11/2022 Active Hydroxychloroquine Sulfate 200 MG Oral Tablet (Plaquenil)Indicat ions:Rheumatoid arthritis involving multiple sites with positive rheumatoid factor (HCC) Take 1.5 Tablets by mouth at bedtime. 180 Tablet 1 12/03/2022 Active Folic Acid 1 MG Oral TabletIndications: Rheumatoid arthritis involving multiple sites with positive [...] Ellipta 100-62.5-25 MCG/ACT Aerosol Powder Breath Activated (Fluticasone-Umecl idinium-Vilanterol )Indications:COPD, moderate (HCC),Pulmonary emphysema, unspecified emphysema type (HCC) INHALE 1 PUFF BY MOUTH DAILY 60 Each 5 12/28/2022 Active Leflunomide 10 MG Oral Tablet (Arava)Indications :Rheumatoid arthritis involving multiple sites with positive rheumatoid factor (HCC) Take 1 Tablet by mouth in the morning. 90 Tablet 1 01/03/2023 Active dilTIAZem HCl ER Beads 120 MG Oral Capsule Extended Release 24 HourIndications:SV T (supraventricular tachycardia) (HCC) TAKE 2 CAPSULES DAILY 60 Capsule 0 03/12/2023 Active Losartan Potassium 50 MG Oral Tablet (Cozaar)Indication s:HTN, goal below 140/90 TAKE 1 TABLET BY MOUTH EVERY DAY IN THE MORNING 30 Tablet 0 04/10/2023 Active Metoprolol Succinate ER 25 MG Oral Tablet Extended Release 24 Hour (toPROL XL)Indications:Par oxysmal SVT (supraventricular tachycardia) (HCC) TAKE 1 TABLET BY MOUTH EVERY DAY 30 Tablet 11 04/15/2023 Active Metoprolol Succinate ER 25 MG Oral Tablet Extended Release 24 Hour (toPROL XL) TAKE 1 TABLET BY MOUTH EVERY DAY 30 Tablet 11 04/02/2022 3 Discontinued documented as of this encounter (statuses as of 04/26/2023) Active Problems Problem Noted Date COPD, group [...] as of this encounter (statuses as of 04/26/2023) Resolved Problems Problem Noted Date Resolved Date [...] as of this encounter (statuses as of 04/26/2023) Immunizations Name Administration Dates Next Due Covid-19 [...] encounter Miscellaneous Notes * Telephone Encounter - WYATT Vaughn - 04/26/2023 2:57 PM EDTSigned Prescriptions: Disp Refills Metoprolol Succinate ER 25 MG Oral Tablet *30 Tab*11 Sig: TAKE 1TABLET BY MOUTH EVERY DAYAuthorizing Provider: MESERET TAPIA * Telephone Encounter - WYATT Vaughn - 04/26/2023 2:57 PM EDT Please see previous refill req encs. Attempts made, letter sent, no response. All future refills must be sent to PCP. * Telephone Encounter - MIGUE Yuan - 04/15/2023 11:35 AM EDT Signed Prescriptions: Disp Refills Metoprolol Succinate ER 25 MG Oral Tablet *30 Tab*11 Sig: TAKE 1 TABLET BY MOUTH EVERY DAY Authorizing Provider: MESERET TAPIA * Telephone Encounter - Izzy Marin CMA - 04/15/2023 11:01 AM EDTPending Prescriptions: Disp Refills Metoprolol Succinate ER 25 MG Oral Tablet *30 Tab*11 Sig: TAKE 1 TABLET BY MOUTH EVERY DAY * Telephone Encounter - Izzy Marin CMA - 04/15/2023 11:01 AM EDT Did you pend patient's preferred pharmacy and medication before forwarding?yes Pharmacy: [id number] [address] [place] [address] Pending Prescriptions: Disp Refills Metoprolol Succinate ER 25 MG Oral Tablet*30 Tab*11 Sig: TAKE 1 TABLET BY MOUTH EVERY DAY Last Visit: 07/10/2021 (in office), Visit date not found (telemedicine) Next Visit: Visit date not found If no future appointments scheduled, and last appointment is greater than a year ago, please schedule patient for a follow-up appointment Last date the medication was ordered: Is this request for a controlled substance?No Urine Drug Screen:No results found for this or any previous visit. Patient Phone Numbers Labs: Lab Results Component Value Date/Time CREAT 0.7 03/20/2023 08:23 AM CREAT 0.8 08/15/2020 03:25 PM POTASSIUM 4.3 03/20/2023 08:23 AM POTASSIUM 3.8 08/15/2020 03:25 PM TSH 2.23 03/20/2023 08:23 AM TSH 1.27 01/05/2019 01:41 PM LDLCALC 82 07/10/2021 09:48 AM LDLCALC 51 01/05/2019 01:41 PM LDLDIRECT NOT APPLICABLE 01/05/2019 01:41 PM LDLDIRECT 79 02/24/2010 10:03 AM ALT 24 03/20/2023 08:23 AM ALT 31 06/27/2020 11:32 AM HGBA1C 5.3 12/15/2019 11:23 AM documented in this encounter Plan of Treatment Upcoming Encounters Date Type Specialty Care Team Description 05/08/2023 Office Visit Orthopedics Hunter Bangura PA-C [address] [place] [id number] 06/17/2023 [facility] [address] [facility] [id number] 09/16/2023 Office Visit Otolaryngology Rocky Hines DO [address] [place] [id number] Scheduled Procedures Name Priority Associated Diagnoses Date/Ti me COLONOSCOPY FLEXIBLE PROXIMA L DIAGNOSTIC Recall Special screening for malignant neoplasms, colon Health Maintenance Due Date Last Done Comments DISCUSS TOBACCO CESSATION (REFER TO SMARTSET #[id number]) 1965 HIV Screening 1980 Alpha-1 Antitrypsin 1983 [...] 10/19/2019 LUNG CANCER SCREENING - USE SMARTSET 71934 Completed 03/27/2021 GARDASIL-HPV IMMUNIZATION SERIES Aged Out No longer eligible based on patient's age to complete this topic MENINGOCOCCAL (MENACTRA/MENVEO) Aged Out No longer eligible based on patient's age to complete this topic documented as of this encounter Medical Devices Not on filedocumented as of this encounter Visit Diagnoses Diagnosis Paroxysmal SVT (supraventricular tachycardia) (HCC)- Primary Paroxysmal supraventricular tachycardia documented in this encounter Care Teams Water Commissioner Relationship Specialty Start Date End Date Lilly Thorne MD [address] [place] [address] PCP - General Internal Medicine 10/19/19 documented as of this encounter
--- OUTSIDE RECORDS SUMMARY | 2023-07-20 23:00 | External Medical Summary | Summary of Care ---
Author Name Unknown Organization [facility] Address [address] [place] [address] Phone [phone] Care Team Providers Care Equipment Mechanic Name Role Phone Lilly Thorne MD Primary Care Provider [phone] Reason for Referral * Evaluate & Treat - Unlimited Visits (Within 10 days (routine)) - Pending Review Specialty Diagnoses / Procedures Referred By Michelle sams Referred To Contact Psychology Diagnoses Attention deficit hyperactivity disorder (ADHD), predominantly inattentive type Lillie Lim CRNP [address] [place] [address] Referral ID Status Reason Start Date Expiration Date Visits Requested Visits Authorized [id number] Pending Review Specialty Services Required 05/13/[phone] Question Answer Referral Priority Within 10 days (routine) Is this referral for medication management? No Referral To [facility] Reason for Referral: ADHD Psychotherapy Specific Condition? ADHD Diagnosed and Needs Psychotherapy Reason for Visit * Reason Comments Follow Up Encounter Details Date Type Department Care Team Description 05/13/2023 Telemedicine Psychiatry, [facility] [address] [place] [address] Lillie Lim CRNP [address] [place] [address] SAL (generalized anxiety disorder)*; Major depressive disorder, recurrent episode, moderate (HCC); Attention deficit hyperactivity disorder (ADHD), predominantly inattentive type Allergies Active Allergy Reactions Severity Noted Date Comments Ivp Dye Anaphylaxis High 10/05/1998 anaphylactic RX Nickel 02/29/2020 Nickel earrings-redness , swelling documented as of this encounter (statuses as of 05/13/2023) Medications Medication Sig Dispensed Refills Start Date [...] the morning. 30 Tablet 5 12/19/2022 Active Trelegy Ellipta 100-62.5-25 MCG/ACT Aerosol Powder Breath Activated (Fluticasone-Umecli dinium-Vilanterol)I ndications:COPD, moderate (HCC),Pulmonary emphysema, unspecified emphysema type (HCC) INHALE 1 PUFF BY MOUTH DAILY 60 Each 5 12/28/2022 Active Leflunomide 10 MG Oral Tablet (Arava)Indications: Rheumatoid arthritis involving multiple sites with positive rheumatoid factor (HCC) Take 1 Tablet by mouth in the morning. 90 Tablet 1 01/03/2023 Active dilTIAZem HCl ER Beads 120 MG Oral Capsule Extended Release 24 HourIndications:SVT (supraventricular tachycardia) (HCC) TAKE 2 CAPSULES DAILY 60 Capsule 0 03/12/2023 Active Metoprolol Succinate ER 25 MG Oral Tablet Extended Release 24 Hour (toPROL XL)Indications:Paro xysmal SVT (supraventricular tachycardia) (HCC) TAKE 1 TABLET BY MOUTH EVERY DAY 30 Tablet 11 04/15/2023 Active Losartan Potassium 50 MG Oral Tablet (Cozaar)Indications :HTN, goal below 140/90 TAKE 1 TABLET BY MOUTH EVERY DAY IN THE MORNING 30 Tablet 0 05/09/2023 Active Escitalopram Oxalate 10 MG Oral Tablet (Lexapro) Take 1.5 Tablets by mouth in the morning. 45 Tablet 2 05/13/2023 Active traZODone HCl 50 MG Oral Tablet (Desyrel)Indication s:Major depressive disorder, recurrent episode, moderate (HCC),Panic disorder with agoraphobia and mild panic attacks,ADHD (attention deficit hyperactivity disorder), combined type Take by mouth 1 Tablet before bedtime. 90 Tablet 0 11/14/2021 3 Discontinue d(Patient preference/ discontinua tion) Escitalopram Oxalate 10 MG Oral Tablet (Lexapro) Take 1 Tablet by mouth in the morning. 30 Tablet 2 12/27/2022 3 Discontinue d(Refill) documented as of this encounter (statuses as of 05/13/2023) Active Problems Problem Noted Date COPD, group [...] as of this encounter (statuses as of 05/13/2023) Resolved Problems Problem Noted Date Resolved Date [...] as of this encounter (statuses as of 05/13/2023) Immunizations Name Administration Dates Next Due Covid-19 [...] as of this encounter Progress Notes * Lillie Lim, MIGUE - 05/13/2023 10:00 AM EDT Patient was at HOME. I was not at a [facility] location. After connecting through [employer], patient was verified with two unique identifiers. Patient (or authorized legal account services representative) was then informed that this was a Telemedicine visit and being conducted confidentially over secure lines. Methods to assure confidentiality were taken. Patient acknowledged consent and understanding of privacy and security of the Telemedicine visit. The patient agreed to participate. PSYCHOTHERAPY & MEDICATION MANAGEMENT FOLLOW-UP VISIT NOTE Psychiatry, [address] [address] 05/13/2023 Trudi AMEZCUA SUBJECTIVE DATA: CHIEF COMPLAINT: "Things have been crazy." INTERVAL HISTORY: Trudi AMEZCUA is a 58 year old female presenting today for a follow-up appointment. Visit was converted to telephonic due to audio issues. She reports things have been "crazy" since our last appointment. She reports her son and his and he is now living with her and her . Her grandson is also there every other weekend and she watches him Mondays. She reports this has been a big strain on the whole family and has been hard to cope with at times. She reports sometimes she is the "go between" with her and son, which is frustrating. She also reports her younger sister had a heart attack at their mother's house, thankfully people were there helping her mother so they were able to do CPR. She feels her sister would have if those people hadn't been there. She reports she keeps thinking that this could have been her, especially since it washer younger sister. She does report her sister is doing better now. She reports with everything going on she got off track with appointments, but knows she can't take care of others if she isn't taking care of herself. She reports her mood has been "up and down" lately. With the downs she feels more annoyed and anxious. She gets annoyed with her when he complains about her son. Her son being there has also lead to some financial stress, which has worsened anxiety. She reports she does enjoy having her son and grandson around, but doesn't have a lot of alone time with her now. She has been trying to balance everything, but it is hard. She also discussed not liking her job andstress with her boss. She reports she wakes up in the morning and her whole body is shaking, she isn't sure if it is something physical going on or if it is related to anxiety. She hasn't noticed if it happens only on the days she works or not, encouraged her to monitor same. She reports her sleep varies, but she tends to struggle with staying asleep. She reports she stopped the Trazodone a few months ago because it would help her fall asleep but didn't help her stay asleep. She wakes up multiple times overnight to use the bathroom or have a snack. She reports her energy during the day isn't great. She reports about 3 or 4 nights out of the week she wakes up around 2 or 3 am feeling hungry and has a snack. She reports this has been going on for about 6 months now. She denies binge eating.She reports her weight has been stable, she hasn't gained or lost weight. She reports her appetite varies between not eating much all day to "eating everything in sight". She reports her alcohol use is about the same, she drinks 2 shots of whisky most nights. She does not feel her alcohol use is a problem, as she does it socially and doesn't feel she needs to drink. Did discuss the negative impact alcohol use can have on both mental and physical health. She is asking about treatment options forADHD, discussed that her pulmonary disease specialist recommended avoiding stimulants and Strattera and that there is some concern with using Clonidine or Guanfacine because she is already on blood pressure medications. Discussed a referral to therapy to try to manage the ADHD non-pharmacologically, she is agreeable to same. She denies any SI/HI/AVH. She denies any delusions or paranoid thoughts. MEDICATION SIDE EFFECTS/ADHERENCE: Trudi AMEZCUA reports good adherence with current psychotropic medications. Trudi AMEZCUA denies experiencing any negative side effects from her current psychotropic medications (Lexapro, Wellbutrin). OBJECTIVE DATA: [place]UMBIA-SUICIDE SEVERITY RATING SCALE: Frequent Screener Ask questions that are bold and underlined Since Last Contact (Guillermo with an X) YES NO Have you actually had thoughts about killing yourself? x If YES, ask the following questions. If NO, go directly to the last question Have you been thinking about how you might do this? x Have you had these thoughts and had some intention of acting on them? E.g. I thought about taking an overdose, but I never made a specific plan as to when where or how I would actually do it.and I would never go through with it. x Have you started to work out or worked out the details of how to kill yourself? Do you intend to carry out this plan? As opposed to I have the thoughts, but I definitely will not do anything about them. x Have you done anything, started to do anything, or prepared to do anything to end your life? Examples: Collected pills, obtained a gun, gave away valuables, wrote a will or suicide note, took out pills but didn't swallow any, held a gun but changed your mind or it was grabbed from your hand,went to the roof but didn't jump; or actually took pills, tried to shoot yourself, cut yourself, tried to hang yourself, etc. x Low Risk Complete or review crisis plan with patient Discuss risk/protective factors and reasons for living Moderate Risk Complete or review crisis plan with patient Discuss risk/protective factors and reasons for living Discuss removal of means High Risk Maintain 1 to 1 monitoring until assessment is completed Evaluate for higher level of care (Inpatient or PHP) Consultation with Emergency Services as appropriate If patient not admitted: Complete or review crisis plan with patient Discuss risk/protective factors and reasons for living Advise removal of means Consider family or collateral contact to promote safety Schedule follow up care consistent with assessment SIGECAPS: - Sleep: Decreased (see above) - Interest: Fair (see above) - Guilt: No - Energy: Decreased (see above) - Concentration: Decreased (see above) - Appetite: Varies (see above) - Psychomotor Activity: Normal SUBSTANCE ABUSE: She reports drinking about 2 shots of whiskey most evenings. RELEVANT CHANGES IN PAST PSYCHIATRIC, MEDICAL, FAMILY OR SOCIAL HX: See above. MEDICAL REVIEW OF SYSTEMS: Review of systems including cardiac, pulmonary, constitutional, dermatologic, rheumatologic, GI, , MSK, psychiatric, and neurologic systems was negative except as in HPI. CURRENT MEDS: Current Outpatient Medications Medication Sig Dispense Refill [...] up to three times a day.-st 03/20/2021 traZODone HCl 50 MG Oral Tablet (Desyrel) Take by mouth 1 Tablet before bedtime. 90 Tablet 0 Omeprazole 20 MG Oral Capsule Delayed Release (PriLOSEC) TAKE 1 CAPSULE BY MOUTH EVERY DAY 1 HOUR BEFORE THE FIRST MEAL 90 Capsule 3 Ventolin HFA 108 (90 Base) MCG/ACT Inhalation Aerosol Solution INHALE 2 PUFFS BY MOUTH EVERY 4 HOURS NEEDED FOR COUGH, SHORTNESS OF BREATH OR WHEEZING. 18 g 1 buPROPion HCl ER (SR) 200 MG Oral Tablet Extended Release 12 Hour (Wellbutrin SR) Take one pill in the morning and one pill around 3pm. 60 Tablet 4 Hydroxychloroquine Sulfate 200 MG Oral Tablet (Plaquenil) Take 1.5 Tablets by mouth at bedtime. 180Tablet 1 Folic Acid 1 MG Oral Tablet Take 3 Tablets by mouth in the morning. 270 Tablet 4 Rinvoq 15 MG Oral Tablet Extended Release 24 Hour (Upadacitinib ER) Take 1 Tablet by mouth in the morning. 30 Tablet 5 Escitalopram Oxalate 10 MG Oral Tablet (Lexapro) Take 1 Tablet by mouth in the morning. 30 Tablet 2 Trelegy Ellipta 100-62.5-25 MCG/ACT Aerosol Powder Breath Activated (Jqagguhhgbl-Kwzktkjiufeb-Qnmixuhmsz) INHALE 1 PUFF BY MOUTH DAILY 60 [...] DAY IN THE MORNING 30 Tablet 0 No current facility-administered medications for this visit. ALLERGIES: Review of patient's allergies indicates: Allergen Reactions Ivp Dye Anaphylaxis anaphylactic RX Nickel Nickel earrings-redness , swelling PAST MEDICAL HISTORY: Past Medical History: Diagnosis Date ANXIETY STATE NOS 02/16/2008 Arthritis, rheumatoid ([facility]) 10/30/2013 Asthma, allergic Carpal tunnel syndrome 10/23/2002 COPD, group A, by GOLD 2017 classification ([facility]) 10/26/2019 Per COPD GOLD Classification DEPRESSIVE DISORDER [...] involving multiple sites with positive rheumatoid factor ([facility]) 10/30/2013 SVT (supraventricular tachycardia) ([facility]) 01/26/2019 RECENT LABORATORY DATA: No results found for this or any previous visit (from the past 672 hour(s)). MENTAL STATUS EVALUATION: Appearance: age-appropriate and casually dressed Muscle strength/tone and motor behavior: No abnormal involuntary movement or gross abnormality of muscle strength and tone noticeable via tele-medicine encounter. Gait and Station: No abnormalities noted via tele-medicine encounter. Personal Presentation: candid and cooperative Behavior: cooperative and pleasant Speech: normal, rate, tone and volume and goal directed Mood: "up and down" Affect: type - appropriate ; range - full range; lability - no Associations: intact Thought Process: goal directed and logical Abstract Reasoning: not tested Thought Content: denies suicidal ideations, homicidal ideations, auditory hallucinations, visual hallucinations, delusions, impulsivity to act out or preoccupation with violence Orientation: alert and oriented to person, place, time and situation Insight: fair Judgment: fair FORMULATION: Trudi AMEZCUA is a 58 year old female with presenting symptoms of inattention, anxiety, and depression. She reports the difficulty with focus has been ongoing since she was a teenagerin school. She completed the BAARS-IV (Adult ADHD Measures) with Dr. Alanis and this showed inattention was in the severely symptomatic range. She currently works at [employer]. She lives with her . She was seen by Dr. Willams in the past and at that time had a diagnosis of MDD Recurrent and Agoraphobia with Panic. She reports drinking one or two glasses of whiskey on most nights. She denies any previous suicide attempts. She denies any inpatient psychiatric hospitalizations. DIAGNOSIS: - Attention-Deficit/Hyperactivity Disorder, Inattentive Type - Generalized Anxiety Disorder - Major Depressive Disorder, Recurrent Episode, Moderate - R/O Seasonal Affective Disorder PLAN: Medications: - Increase Lexapro to 15 mg daily for anxiety and depressed mood. - Continue Wellbutrin SR 200 mg BID. She denies any history of seizures. Therapy: - [facility] Psychology referral placed for non-pharmacological management of inattention. Labs/Monitoring: - None indicated at this time. RTC: - Trudi AMEZCUA is to return in 4 weeks. Sooner PRN. Outpatient Adult Psychiatry Treatment Plan Treatment plan was developed on 03/19/22, treatment will continue to focus on goals below; Treatment update will occur when clinically indicated or by 09/19/2023. Patient's goals captured in patient's words: "I'd like to be able to focus better." Crisis Planning: Patient and/or family aware of how to contact provider between sessions Patient/Family Received Copy of Treatment Plan: Patient has access to [employer] Signature Obtained on Treatment Plan: Treatment plan developed with patient and/or family during telemedicine/telephonic visit. No treatment plan signature page was signed. Will obtain signatures once sessions resume in clinic. Expected family or significant other involvement: Not applicable Patient Identified Needs/Goals Interventions/Type of Service Duration of Treatment Frequency of Treatment Patients strengths and facilitating factors to care Objective/ Discharge Criteria Problem/Need1: Medication Mangement Medication Management 1 year Monthly Recognizes need for change Seeking help Good support system Cooperative PHQ<5 and SAL<5 Please choose a method to track patient's improvement based on clinical assessment: PHQ-9 Adult Data SAL-7 Data Crisis Planning: Trudi AMEZCUA has been provided with Psychiatry emergency telephone numbers, including crisis number, text suicide hotline and suicide hotline. The crisis plan was reviewed and updated if necessary based on the information above. Side effects of the medication were explained, and the patient understands the risks and benefits of using the medication.Patient cautioned not to drive, operate heavy machinery, or participate in other tasks requiring full cognitive alertness untilthey know how new medications will affect them. Pt encouraged to keep all medications out of the reach of children. Psychoeducation was provided. Discussed risks, expected benefits, and potential adverse effects from these medications. The benefits outweigh the risks.The patient participated in thedevelopment of the treatment plan, verbalized understanding, voices no concerns and is agreeable tothe treatment plan. Risk Assessment: Risk assessment was performed for Trudi AMEZCUA. This is a patient being treated for chronic mental health conditions as characterized above; at the time of this visit, there was no indication that this patient was either a risk to self, others, or gravely disabled by symptoms of a mental illness. At the time of this evaluation, there were enough protective factors in place and it was deemed safe to continue with treatment on a outpatient basis with return to clinic in the timeframe described above. Health Maintenance: Trudi AMEZCUA was encouraged to keep up to date on regular health maintenance per her primary care provider. Encouraged to keep active in productive hobbies and exercise. This helps manage emotions, improve sleep, wellbeing and overall health. Pt was cautioned to not drink alcohol or use illicit drugs as these can make mood symptoms worse by blocking the effects of prescribed medications. Avoid tobacco, which contains nicotine. Limit caffeine use. Caffeine and Nicotine are stimulants that can cause difficulty with sleep. Lack of sleep can then worsen anxiety and depression. Time Spent on Visit: 30 minutes - including preparing to see the patient, reviewing history, performing evaluation, counseling/educating patient, ordering medications/tests, documenting clinical information. Lillie Lim MSN, MIGUE, PMHNP- Nurse Practitioner - Outpatient Psychiatry 05/13/2023 documented in this encounter Plan of Treatment Upcoming Encounters Date Type Specialty Care Team Description 05/30/2023 Office Visit Orthopedics Hunter Bangura PA-C [address] [facility] [place] [id number] 06/03/2023 Office Visit Internal Medicine Lilly Thorne MD [address] [place] [address] 06/17/2023 Office Visit Rheumatology Shahriar Trivedi MD [address] [facility] [place] [address] 06/17/2023 Telemedicine Psychiatry Lillie Lim CRNP [address] [place] [address] 07/01/2023 Office Visit Cardiology Linda Parker PA-C [address] [facility] [place] [address] 09/16/2023 Office Visit Otolaryngology Rocky Hines DO [address] [place] [address] Scheduled Procedures Name Priority Associated Diagnoses Date/Ti me COLONOSCOPY FLEXIBLE PROXIMA L DIAGNOSTIC Recall Special screening for malignant neoplasms, colon Scheduled Referrals Name Type Priority Associated Diagnoses Orde r Schedule ADULT/PEDS PSYCHOLOGY REFERRAL OP Referral Within 10 days (routine) Attention deficit hyperactivity disorder (ADHD), predominantly inattentive type Ordered: 05/13/2023 Health Maintenance Due Date Last Done Comments DISCUSS TOBACCO CESSATION (REFER TO SMARTSET #3291) 1965 HIV Screening 1980 Alpha-1 Antitrypsin 1983 HPV/Co-Test 1995 Fecal Occult Blood Test 2010 Sigmoidoscopy 2010 COVID-19 Vaccine (2 - Edson risk series) 02/16/2021 01/19/2021 Hepatitis B (3 of 3 - 19+ 3-dose series) 12/25/2021 10/30/2021, 05/01/2021 Cologuard 12/28/2021 12/28/2018 Mammogram 01/29/2023 01/29/2022, 06/0 [...] 10/19/2019 LUNG CANCER SCREENING - USE SMARTSET 65775 Completed 03/27/2021 GARDASIL-HPV IMMUNIZATION SERIES Aged Out No longer eligible based on patient's age to complete this topic MENINGOCOCCAL (MENACTRA/MENVEO) Aged Out No longer eligible based on patient's age to complete this topic documented as of this encounter Medical Devices Not on filedocumented as of this encounter Visit Diagnoses Diagnosis SAL (generalized anxiety disorder)- Primary Generalized anxiety disorder Major depressive disorder, recurrent episode, moderate (HCC) Major depressive disorder, recurrent episode, moderate Attention deficit hyperactivity disorder (ADHD), predominantly inattentive type documented in this encounter Care Teams Equipment Mechanic Relationship Specialty Start Date End Date Lilly Thorne MD [address] [place] [address] PCP - General Internal Medicine 10/19/19 documented as of this encounter
--- OUTSIDE RECORDS SUMMARY | 2023-07-20 23:00 | External Medical Summary | Summary of Care ---
Author Name Unknown Organization [facility] Address [address] [place] [address] Phone [phone] Care Team Providers Care [employer] Sales Representative Name Role Phone Lilly Thorne MD Primary Care Provider Encounter Details Date Type Department Care Team Description 04/15/2023 Orders Only Outcomes Research Department [address] [place] [address] Suzi De Los Santos CHRA [employer] [facility] Other*[id number] Allergies Active Allergy Reactions Severity Noted Date Comments Ivp Dye Anaphylaxis High 10/05/1998 anaphylactic RX Nickel 02/29/2020 Nickel earrings-redness , swelling documented as of this encounter (statuses as of 04/15/2023) Medications Medication Sig Dispensed Refills Start Date [...] before bedtime. 90 Tablet 0 11/14/2021 Active Metoprolol Succinate ER 25 MG Oral Tablet Extended Release 24 Hour (toPROL XL) TAKE 1 TABLET BY MOUTH EVERY DAY 30 Tablet 11 04/02/2022 Active Omeprazole 20 MG Oral Capsule Delayed [...] THE MORNING 30 Tablet 0 04/10/2023 Active documented as of this encounter (statuses as of 04/15/2023) Active Problems Problem Noted Date COPD, group [...] as of this encounter (statuses as of 04/15/2023) Resolved Problems Problem Noted Date Resolved Date [...] as of this encounter (statuses as of 04/15/2023) Immunizations Name Administration Dates Next Due Covid-19 [...] Bangura PA-C [address] [place] [address] 06/17/2023 Office Visit Rheumatology Shahriar Trivedi MD [facility] [place] [address] 09/16/2023 Office Visit Otolaryngology Rocky Hines DO [address] [place] [address] Scheduled Orders Name Type Priority Associated Diagnoses Orde r Schedule MYCODE SUBSEQUENT ADULT Lab Routine [employer] Other*[id number] Every 6 Months for 2 Occurrences starting 04/15/2023 until 05/04/2024 Scheduled Procedures Name Priority Associated Diagnoses Date/Ti me COLONOSCOPY FLEXIBLE PROXIMA L DIAGNOSTIC Recall Special screening for malignant neoplasms, colon Health Maintenance Due Date Last Done Comments DISCUSS TOBACCO CESSATION (REFER TO SMARTSET #5324) 1965 HIV Screening 1980 Alpha-1 Antitrypsin 1983 HPV/Co-Test 1995 Fecal Occult Blood Test 2010 Sigmoidoscopy 2010 COVID-19 Vaccine (2 - Edson risk series) 02/16/2021 01/19/2021 Hepatitis B (3 of 3 - 19+ 3-dose series) 12/25/2021 10/30/2021, 05/01/2021 Cologuard 12/28/2021 12/28/2018 Mammogram 01/29/2023 01/29/2022, 02/2021, 01/18/2020, Additional history exists Influenza Vaccine (FLU shot) (#1) 2023 06/28/2020, 07/07/2019, 07/24/2016, Additional history exists Depression Screening, Annual for Pts 12 and Over 07/18/2023 07/18/2022 Cervical Cancer Screening 11/08/2023 Pap [...] 10/19/2019 LUNG CANCER SCREENING - USE SMARTSET 35740 Completed 03/27/2021 GARDASIL-HPV IMMUNIZATION SERIES Aged Out No longer eligible based on patient's age to complete this topic MENINGOCOCCAL (MENACTRA/MENVEO) Aged Out No longer eligible based on patient's age to complete this topic documented as of this encounter Medical Devices Not on filedocumented as of this encounter Visit Diagnoses Diagnosis [employer] [facility] Other*[id number] documented in this encounter Care Teams [employer] Liqu[employer] Sales Representative Relationship Specialty Start Date End Date Lilly Thorne MD [address] [place], [place] [id number] PCP - General Internal Medicine 10/19/19 documented as of this encounter
--- OUTSIDE RECORDS SUMMARY | 2023-07-20 23:00 | External Medical Summary | Summary of Care ---
Author Name Unknown Organization [facility] Address [address] [place] [address] Phone [phone] Care Team Providers Care Drafter Civil (Cad) Name Role Phone Lilly Thorne MD Primary Care Provider [phone] Reason for Visit * Reason Comments eRx-Medication Refill Encounter Details Date Type Department Care Team Description 05/09/2023 Refill General Internal Medicine [facility] [address] [place] [address] Lilly Thorne MD [address] [place] [address] HTN, goal below 140/90 Allergies Active Allergy Reactions Severity Noted Date Comments Ivp Dye Anaphylaxis High 10/05/1998 anaphylactic RX Nickel 02/29/2020 Nickel earrings-redness , swelling documented as of this encounter (statuses as of 05/09/2023) Medications Medication Sig Dispensed Refills Start Date [...] THE MORNING 30 Tablet 0 05/09/2023 Active Losartan Potassium 50 MG Oral Tablet (Cozaar)Indication s:HTN, goal below 140/90 TAKE 1 TABLET BY MOUTH EVERY DAY IN THE MORNING 30 Tablet 0 04/10/2023 3 Discontinued documented as of this encounter (statuses as of 05/09/2023) Active Problems Problem Noted Date COPD, group [...] as of this encounter (statuses as of 05/09/2023) Resolved Problems Problem Noted Date Resolved Date [...] as of this encounter (statuses as of 05/09/2023) Immunizations Name Administration Dates Next Due Covid-19 [...] encounter Miscellaneous Notes * Telephone Encounter - Adrián Arizmendi [facility] - 05/09/2023 10:38 AM EDT Signed Prescriptions: Disp Refills Losartan Potassium 50 MG Oral Tablet (Coza*30 Tab*0 Sig: TAKE 1 TABLET BY MOUTH EVERY DAY IN THE MORNING Authorizing Provider: LILLY THORNE Ordering User: ADRIÁN ARIZMENDI Electronically signed by Adrián Arizmendi [facility] at 05/09/2023 10:38 AM EDT * Telephone Encounter - Adrián Arizmendi RP - 05/09/2023 10:38 AM EDT RX authorized. Zero refills given until upcoming OV with PCP. Thanks, Fransisco SinghD Clinical Pharmacist Telepharmacy 05/09/2023, 10:38 AM Electronically signed by Adrián Arizmendi [facility] at 05/09/2023 10:38 AM EDT documented in this encounter Plan of Treatment Upcoming Encounters Date Type Specialty Care Team Description 05/13/2023 Telemedicine Psychiatry Lillie Lim CRNP [address] [place] [address] 05/30/2023 Office Visit Orthopedics Hunter Bangura PA-C [address] [place] [id number] 06/03/2023 Office Visit Internal Medicine Lilly Thorne MD [address] [place] [address] 06/17/2023 Office Visit Rheumatology Shahriar Trivedi MD [address] [place] [address] 07/01/2023 Office Visit Cardiology Linda Parker PA-C [address] [facility] [place] [address] 09/16/2023 Office Visit Otolaryngology Rocky Hines DO [address] [place] [address] Scheduled Procedures Name Priority Associated Diagnoses Date/Ti me COLONOSCOPY FLEXIBLE PROXIMA L DIAGNOSTIC Recall Special screening for malignant neoplasms, colon Health Maintenance Due Date Last Done Comments DISCUSS TOBACCO CESSATION (REFER TO SMARTSET #3295) 1965 HIV Screening 1980 Alpha-1 Antitrypsin 1983 HPV/Co-Test 1995 Fecal Occult Blood Test 2010 Sigmoidoscopy 2010 COVID-19 Vaccine (2 - Edson risk series) 02/16/2021 01/19/2021 Hepatitis B (3 of 3 - 19+ 3-dose series) 12/25/2021 10/30/2021, 05/01/2021 Cologuard 12/28/2021 12/28/2018 Mammogram 01/29/2023 01/29/2022, 06/02/2021, 01/18/2020, Additional history exists Influenza Vaccine (FLU shot) (#1) 2023 06/28/2020, 07/07/2019, 07/24/2016, Additional history exists Depression Screening 07/18/2023 07/18/2022 Cervical Cancer Screening 11/08/2023 Pap Smear 11/08/2023 11/07/2020, 06/19, 06/30/2015, Additional history exists O2 ASSESSMENT COMPLETED IN PAST YEAR FOR COPD 03/18/2024 03/18/2023 Diabetes Screening 03/20/2026 03/20/2023, 0 12/03/2022, 01/17/2022, Additional history exists Lipid Panel 07/10/2026 07/10/2021, 05/2 , 07/24/2016, Additional history exists Colonoscopy 03/07/2030 03/07/2020, 03/07/2020 Colorectal Cancer Screening 03/07/2030 Pneumococcal Vaccine: Pediatrics (0 to 5 Years) and At-Risk Patients (6 to 64 Years) (4 - PPSV23 or PCV20) 2030 03/02/2019, 09/09/2015, 10/11/2009 DTaP,Tdap,and Td Vaccines (3 - Td or Tdap) 06/28/2030 06/28/2020, 02/24/2010 Zoster Vaccines Completed 02/01/2020, 10/19/2019 LUNG CANCER SCREENING - USE SMARTSET [id number] Completed 03/27/2021 GARDASIL-HPV IMMUNIZATION SERIES Aged Out No longer eligible based on patient's age to complete this topic MENINGOCOCCAL (MENACTRA/MENVEO) Aged Out No longer eligible based on patient's age to complete this topic documented as of this encounter Medical Devices Not on filedocumented as of this encounter Visit Diagnoses Diagnosis HTN, goal below 140/90 Unspecified essential hypertension documented in this encounter Care Teams Drafter Civil (Cad) Relationship Specialty Start Date End Date Lilly Thorne MD [address] [place] [address] PCP - General Internal Medicine 10/19/19 documented as of this encounter
--- OUTSIDE RECORDS SUMMARY | 2023-07-20 23:00 | External Medical Summary | Summary of Care ---
Author Name Unknown Organization [facility] Address [address] [place] [address] Phone [phone] Care Team Providers Care Account Group Supervisor Name Role Phone Lilly Thorne MD Primary Care Provider [phone] Encounter Details Date Type Department Care Team [...] involving multiple sites with positive rheumatoid factor ([facility]) Take 1.5 Tablets by mouth at bedtime. [...] involving multiple sites with positive rheumatoid factor ([facility]) Take 1 Tablet by mouth in the morning. 90 Tablet 1 01/03/2023 Active dilTIAZem HCl ER Beads 120 MG Oral Capsule Extended Release 24 HourIndications:SVT (supraventricular tachycardia) ([facility]) TAKE 2 CAPSULES DAILY 60 Capsule 0 [...] Bangura PA-C [address] [place] [address] 06/03/2023 Office Visit Internal Medicine Lilly Thorne MD [address] [place] [address] 06/17/2023 Office Visit Rheumatology Shahriar Trivedi MD [address] [facility] [place] [address] 09/16/2023 Office Visit Otolaryngology Rocky Hines DO [address] [place] [address] Scheduled Procedures Name Priority Associated Diagnoses Date/Ti me COLONOSCOPY FLEXIBLE PROXIMA L DIAGNOSTIC Recall Special screening for malignant neoplasms, colon Health Maintenance Due Date Last Done Comments DISCUSS TOBACCO CESSATION (REFER TO SMARTSET #9288) 1965 HIV Screening 1980 Alpha-1 Antitrypsin 1983 [...] 10/19/2019 LUNG CANCER SCREENING - USE SMARTSET [id number] Completed 03/27/2021 GARDASIL-HPV IMMUNIZATION SERIES Aged Out No longer eligible based on patient's age to complete this topic MENINGOCOCCAL (MENACTRA/MENVEO) Aged Out No longer eligible based on patient's age to complete this topic documented as of this encounter Medical Devices Not on filedocumented as of this encounter Care Teams Account Group Supervisor Relationship Specialty Start Date End Date Lilly Thorne MD [address] [place] [address] PCP - General Internal Medicine 10/19/19 documented as of this encounter
--- OUTSIDE RECORDS SUMMARY | 2023-07-20 23:00 | External Medical Summary | Summary of Care ---
Author Name Unknown Organization [facility] Address [address] [facility] [place] [address] Phone [phone] Care Team Providers Care Group Billing Coordinator Name Role Phone Lilly Thorne MD Primary Care Provider [phone] Reason for Visit * Reason Comments eRx-Medication Refill Encounter Details Date Type Department Care Team Description 04/14/2023 Refill Cardiology, [facility] [address] [place] [address] [place] MD [address] [place] [address] Paroxysmal SVT (supraventricular tachycardia) ([facility])* Allergies Active Allergy Reactions Severity Noted [...] encounter Miscellaneous Notes * Telephone Encounter - MIGUE Yuan - [...] preferred pharmacy and medication before forwarding?yes Pharmacy: [id number] [facility] Pending Prescriptions: Disp Refills Metoprolol Succinate ER [...] Bangura PA-C [address] [place] [address] 06/17/2023 Office Visit Rheumatology Shahriar Trivedi [facility], [place] [address] 09/16/2023 Office Visit Otolaryngology Rocky Hines DO [address] [place] [address] Scheduled Procedures Name Priority Associated Diagnoses Date/Ti me COLONOSCOPY FLEXIBLE PROXIMA L DIAGNOSTIC Recall Special screening for malignant neoplasms, colon Health Maintenance Due Date Last Done Comments DISCUSS TOBACCO CESSATION (REFER TO SMARTSET #5078) 1965 HIV Screening 1980 Alpha-1 Antitrypsin 1983 [...] 10/19/2019 LUNG CANCER SCREENING - USE SMARTSET [id number] Completed 03/27/2021 GARDASIL-HPV IMMUNIZATION SERIES Aged Out [...] tachycardia documented in this encounter Care Teams Group Billing Coordinator Relationship Specialty Start Date End Date Lilly Thorne MD [address] [place] [address] PCP - General Internal Medicine 10/19/19 documented as of this encounter
--- OUTSIDE RECORDS SUMMARY | 2023-07-20 23:01 | External Medical Summary | Summary of Care ---
Author Name Unknown Organization [facility] Address [address] [place] [address] Phone [phone] Care Team Providers Care Manager Strategic Alliances Name Role Phone Lilly Thorne MD Primary Care Provider [phone] Encounter Details Date Type Department Care Team Description 04/01/2023 Patient Reported Data Patient Survey Ortho [facility]BERD Allergies Active Allergy Reactions Severity Noted Date Comments Ivp Dye Anaphylaxis High 10/05/1998 anaphylactic RX Nickel 02/29/2020 Nickel earrings-redness , swelling documented as of this encounter (statuses as of 04/01/2023) Medications Medication Sig Dispensed Refills Start Date [...] Oral Tablet (Cozaar)Indications:H TN, goal below 140/90 Take 1 Tablet by mouth in the morning. 30 Tablet 0 03/18/2023 Active documented as of this encounter (statuses as of 04/01/2023) Active Problems Problem Noted Date Primary osteoarthritis of first carpomet acarpal joint of right hand 01/17/2022 Major depressive disorder, recurrent epi sode, moderate 07/03/2021 ADHD (attention deficit hyperactivity di sorder), combined type 07/03/2021 Panic disorder with agoraphobia and mild panic attacks 07/03/2021 Pulmonary emphysema 05/01/2021 COPD, moderate 10/26/2019 Overview: Per COPD GOLD Classification History of tobacco use 10/19/2019 Overview: Quit [...] as of this encounter (statuses as of 04/01/2023) Resolved Problems Problem Noted Date Resolved Date 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 01/17/2022 01/17/2022 Encounter for screening mammogram for breast can [...] as of this encounter (statuses as of 04/01/2023) Immunizations Name Administration Dates Next Due Covid-19 Ad26, Single Dose (Edson/J&J) 01/19/2021 Hepatitis B, 20+ yrs 10/30/2021,05/01/2021 PPD 01/20/2007 Pneumococcal Conjugate Vacc, 13 Valent (Prevnar) 03/02/2019 Pneumococcal Polysaccharide PPV23 (Pneumovax) 09/09/2015,10/11/2009 Seasonal Influenza, Quadriva lent, No Preserve, 6 Mons & Above, IM 06/28/2020,07/07/2019 Seasonal Influenza, Quadriva lent, No Preserve, [...] Encounters Date Type Specialty Care Team Description 06/17/2023 Office Visit Rheumatology Shahriar Trivedi MD [address] [place] [address] 09/16/2023 Office Visit Otolaryngology Rocky Hines DO [address] [place] [address] Scheduled Procedures Name Priority Associated Diagnoses Date/Ti me COLONOSCOPY FLEXIBLE PROXIMA L DIAGNOSTIC Recall Special screening for malignant neoplasms, colon Health Maintenance Due Date Last Done Comments DISCUSS TOBACCO CESSATION (REFER TO SMARTSET #1191) 1965 HIV Screening 1980 Alpha-1 Antitrypsin 1983 [...] 10/19/2019 LUNG CANCER SCREENING - USE SMARTSET [id number] Completed 03/27/2021 GARDASIL-HPV IMMUNIZATION SERIES Aged Out No longer eligible based on patient's age to complete this topic MENINGOCOCCAL (MENACTRA/MENVEO) Aged Out No longer eligible based on patient's age to complete this topic documented as of this encounter Medical Devices Not on filedocumented as of this encounter Care Teams Manager Strategic Alliances Relationship Specialty Start Date End Date Lilly Thorne MD [address] [place] [address] [place] [address] PCP - General Internal Medicine 10/19/19 documented as of this encounter
--- OUTSIDE RECORDS SUMMARY | 2023-07-20 23:01 | External Medical Summary | Summary of Care ---
Author Name Unknown Organization [facility] Address [address] [place] [address] Phone [phone] Care Team Providers Care Separations Scientist Name Role Phone Lilly Thorne MD Primary Care Provider [phone] Encounter Details Date Type Department Care Team [...] 06/17/2023 Office Visit Rheumatology Shahriar Trivedi MD [address] [place] [address] 09/16/2023 Office Visit Otolaryngology Rocky Hines DO [address] [place] [address] Scheduled Procedures Name Priority Associated Diagnoses Date/Ti me COLONOSCOPY FLEXIBLE PROXIMA L DIAGNOSTIC Recall Special screening for malignant neoplasms, colon Health Maintenance Due Date Last Done Comments DISCUSS TOBACCO CESSATION (REFER TO SMARTSET #3491) 1965 HIV Screening 1980 Alpha-1 Antitrypsin 1983 [...] 10/19/2019 LUNG CANCER SCREENING - USE SMARTSET [id number] Completed 03/27/2021 GARDASIL-HPV IMMUNIZATION SERIES Aged Out No longer eligible based on patient's age to complete this topic MENINGOCOCCAL (MENACTRA/MENVEO) Aged Out No longer eligible based on patient's age to complete this topic documented as of this encounter Medical Devices Not on filedocumented as of this encounter Care Teams Separations Scientist Relationship Specialty Start Date End Date Lilly Thorne MD [address] [place] [address] [place] [address] PCP - General Internal Medicine 10/19/19 documented as of this encounter
--- OUTSIDE RECORDS SUMMARY | 2023-07-20 23:01 | External Medical Summary | Summary of Care ---
Author Name Unknown Organization [facility] Address [address] [place] [address] Phone [phone] Care Team Providers Care Clinical Quality Analyst Name Role Phone Lilly Thorne MD Primary Care Provider [phone] Encounter Details Date Type Department Care Team [...] 06/17/2023 Office Visit Rheumatology Shahriar Trivedi MD [address] [place] [address] 09/16/2023 Office Visit Otolaryngology Rocky Hines DO [address] [place] [address] Scheduled Procedures Name Priority Associated Diagnoses Date/Ti me COLONOSCOPY FLEXIBLE PROXIMA L DIAGNOSTIC Recall Special screening for malignant neoplasms, colon Health Maintenance Due Date Last Done Comments DISCUSS TOBACCO CESSATION (REFER TO SMARTSET #7261) 1965 HIV Screening 1980 Alpha-1 Antitrypsin 1983 [...] 10/19/2019 LUNG CANCER SCREENING - USE SMARTSET [id number] Completed 03/27/2021 GARDASIL-HPV IMMUNIZATION SERIES Aged Out No longer eligible based on patient's age to complete this topic MENINGOCOCCAL (MENACTRA/MENVEO) Aged Out No longer eligible based on patient's age to complete this topic documented as of this encounter Medical Devices Not on filedocumented as of this encounter Care Teams Clinical Quality Analyst Relationship Specialty Start Date End Date Lilly Thorne MD [address] [place] [address] [place] [address] PCP - General Internal Medicine 10/19/19 documented as of this encounter
--- OUTSIDE RECORDS SUMMARY | 2023-07-20 23:01 | External Medical Summary | Summary of Care ---
Author Name Unknown Organization [facility] Address [address] [place] [address] Phone [phone] Care Team Providers Care Senior Technical Support Analyst Name Role Phone Lilly Thorne MD Primary Care Provider [phone] Encounter Details Date Type Department Care Team [...] 06/17/2023 Office Visit Rheumatology Shahriar Trivedi MD [address] [employer] [place] [address] 09/16/2023 Office Visit Otolaryngology Rocky Hines DO [address] [place] [address] Scheduled Procedures Name Priority Associated Diagnoses Date/Ti me COLONOSCOPY FLEXIBLE PROXIMA L DIAGNOSTIC Recall Special screening for malignant neoplasms, colon Health Maintenance Due Date Last Done Comments DISCUSS TOBACCO CESSATION (REFER TO SMARTSET #4591) 1965 HIV Screening 1980 Alpha-1 Antitrypsin 1983 [...] 10/19/2019 LUNG CANCER SCREENING - USE SMARTSET [id number] Completed 03/27/2021 GARDASIL-HPV IMMUNIZATION SERIES Aged Out No longer eligible based on patient's age to complete this topic MENINGOCOCCAL (MENACTRA/MENVEO) Aged Out No longer eligible based on patient's age to complete this topic documented as of this encounter Medical Devices Not on filedocumented as of this encounter Care Teams Senior Technical Support Analyst Relationship Specialty Start Date End Date Lilly Thorne MD [address] [place] [address] [place] [address] PCP - General Internal Medicine 10/19/19 documented as of this encounter
--- OUTSIDE RECORDS SUMMARY | 2023-07-20 23:01 | External Medical Summary | Summary of Care ---
Author Name Unknown Organization [facility] Address [address] [place] [address] Phone [phone] Care Team Providers Care Fan Installer Name Role Phone Lilly Thorne MD Primary Care Provider [phone] Encounter Details Date Type Department Care Team [...] 06/17/2023 Office Visit Rheumatology Shahriar Trivedi MD [address] [employer] [facility] [place] [address] 09/16/2023 Office Visit Otolaryngology Rocky Hines DO [address] [place] [address] Scheduled Procedures Name Priority Associated Diagnoses Date/Ti me COLONOSCOPY FLEXIBLE PROXIMA L DIAGNOSTIC Recall Special screening for malignant neoplasms, colon Health Maintenance Due Date Last Done Comments DISCUSS TOBACCO CESSATION (REFER TO SMARTSET #8121) 1965 HIV Screening 1980 Alpha-1 Antitrypsin 1983 [...] 10/19/2019 LUNG CANCER SCREENING - USE SMARTSET 17814 Completed 03/27/2021 GARDASIL-HPV IMMUNIZATION SERIES Aged Out No longer eligible based on patient's age to complete this topic MENINGOCOCCAL (MENACTRA/MENVEO) Aged Out No longer eligible based on patient's age to complete this topic documented as of this encounter Medical Devices Not on filedocumented as of this encounter Care Teams Fan Installer Relationship Specialty Start Date End Date Lilly Thorne MD [address] [place] [address] [place] [address] PCP - General Internal Medicine 10/19/19 documented as of this encounter
--- OUTSIDE RECORDS SUMMARY | 2023-07-20 23:01 | External Medical Summary | Summary of Care ---
Author Name Unknown Organization [facility] Address [address] [place] [address] Phone [phone] Care Team Providers Care Chemistry Laboratory Technician Name Role Phone Lilly Thorne MD Primary Care Provider [phone] Reason for Visit * Reason Comments NEW PATIENT Pain Left thumb and 2nd a nd 3rd fingers * Evaluate & Treat - Unlimited Visits (Within 10 days (routine)) - Pending Review Specialty Diagnoses / Procedures Referred By Michelle sams Referred To Contact Orthopaedic Surgery / Orthopedics Diagnoses Swelling of finger of left hand Rheumatoid arthritis involving multiple sites with positive rheumatoid factor (HCC) Lilly Thorne MD [address] [place] [address] Referral ID Status Reason Start Date Expiration Date Visits Requested Visits Authorized [id number] Pending Review Specialty Services Required 03/18/[phone] Encounter Details Date Type Department Care Team Description 04/01/2023 Office Visit Orthopaedics [facility] [address] [place] [address] Hunter Bangura PA-C [address] [place] [address] Carpal tunnel syndrome of left wrist* Allergies [...] Extended Release 24 HourIndications:SVT (supraventricular tachycardia) ([facility]) TAKE 2 CAPSULES DAILY 60 Capsule 0 [...] Progress Notes * Hunter Bangura PA-C - 04/01/2023 10:15 AM EDT Subjective Trudi AMEZCUA is a 58 year old female. Chief Complaint Patient presents with NEW PATIENT Pain Left thumb and 2nd and 3rd fingers HPI: New patient referred by PCP regarding pain in the left hand upwards 3-4 months. Further discussion the patient reports actually likely much longer than this. She describes symptoms in her thumb,index and middle finger. She states she was having pain in her ring and little finger that has subsided. She denies triggering or locking. Like her fingers are swollen. She reports numbness and tingling in this distribution which is consistent with the median nerve. She states symptoms are present at night and when she sleeps she has to hang her hand over the edge of the bed for relief. She is never had any type of formal treatments in left hand. Patient assumed her symptoms were secondary to her rheumatoid. X-rays on file. PMH: Patient Active Problem List Diagnosis Code Rheumatoid arthritis involving multiple sites with positive rheumatoid factor ([facility]) M05.79 Mixed rhinitis J31.0 Tobacco use disorder F17.200 Paresthesias in left hand R20.2 Paroxysmal SVT (supraventricular tachycardia) ([facility]) I47.1 History of tobacco use Z87.891 Atypical squamous cell changes of undetermined significance (ASCUS) on vaginal cytology R87.620 Encounter for long-term (current) use of medications Z79.899 COPD, moderate ([facility]) J44.9 Pulmonary emphysema ([facility]) J43.9 Major depressive disorder, recurrent episode, moderate ([facility]) F33.1 ADHD (attention deficit hyperactivity disorder), combined type F90.2 Panic disorder with agoraphobia and mild panic attacks F40.01 Primary osteoarthritis of first carpometacarpal joint of right hand M18.11 Current Outpatient Medications Medication Sig Dispense Refill [...] 1 Tablet before bedtime. 90 Tablet 0 Metoprolol Succinate ER 25 MG Oral Tablet Extended Release 24 Hour (toPROL XL) TAKE 1 TABLET BYMOUTH EVERY DAY 30 Tablet 11 Omeprazole 20 MG Oral Capsule Delayed Release [...] Release 12 Hour (Wellbutrin SR) Take one pillin the morning and one pill around 3pm. 60 Tablet 4 Hydroxychloroquine Sulfate 200 MG Oral Tablet (Plaquenil) Take 1.5 Tablets by mouth at bedtime.180 Tablet 1 Folic Acid 1 MG Oral Tablet [...] Ellipta 100-62.5-25 MCG/ACT Aerosol Powder Breath Activated (Kbemfekteqx-Hoeixbfipgfb-Yegpvvbjyb) INHALE 1 PUFF BY MOUTH DAILY 60 Each 5 Leflunomide 10 MG Oral Tablet (Arava) Take 1 Tablet by mouth in the morning. 90 Tablet 1 dilTIAZem HCl ER Beads 120 MG Oral Capsule Extended Release 24 Hour TAKE 2 CAPSULES DAILY 60 Capsule 0 Losartan Potassium 50 MG Oral Tablet (Cozaar) Take 1 Tablet by mouth in the morning. 30 Tablet 0 No current facility-administered medications for this visit. Past Medical History: Diagnosis Date ANXIETY STATE NOS 02/16/2008 Arthritis, rheumatoid ([facility]) 10/30/2013 Asthma, allergic Carpal tunnel syndrome 10/23/2002 COPD, group A, by GOLD 2017 classification ([facility]) 10/26/2019 Per COPD GOLD Classification DEPRESSIVE DISORDER [...] multiple sites with positive rheumatoid factor ([facility]) 10/30/2013 SVT (supraventricular tachycardia) ([facility]) 01/26/2019 Past Surgical History: Procedure Laterality Date CARPAL TUNNEL SURGERY 2007 Right hand COLONOSCOPY, DIAGNOSTIC (RECTUM) 03/07/2020 diverticulosis, repeat 10 yrs / COLONOSCOPY FLEXIBLE PROXIMAL DIAGNOSTIC performed by Suraj Farnsworth MD at [facility] ECHO, COMPLETE (2D), TRANS-THORACIC 04/09/2019 normal LV size and function, EF 56% LIGATE/CUT OVIDUCT(S) 12/2001 Laparoscopic tubal ligation- Dr. Tomlin UNLISTED LAPAROSCOPY;UTERUS 1991 normal; looking for endometriosis Review of patient's allergies indicates: Allergen Reactions Ivp Dye Anaphylaxis anaphylactic RX Nickel Nickel earrings-redness , swelling Family History Problem Relation Age of Onset Asthma Mother Arthritis Mother Uterine cancer Mother Multiple Sclerosis Mother COPD Sister Breast Cancer Grandmother (Maternal) 60 Cancer Grandmother (Maternal) Family Status Relation Status Mo Alive Fa Lung cancer Sis Alive Sis Alive Son Alive MGMA (Not Specified) Social History Socioeconomic History Marital status: Spouse name: Not on file Number of children: 1 Years of education: Not on file Highest education level: Not on file Occupational History 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 Employer: [employer] Comment: [employer] Tobacco Use Smoking status: Every Day Packs/day: 1.00 Years: 39.00 Pack years: 39.00 Types: Cigarettes Smokeless tobacco: Never [...] on file Food Insecurity: No Food Insecurity Worried About Running Out of Food in the Last Year: Never true Ran Out of Food in the Last Year: Never true Transportation Needs: Not on file Physical Activity: Not on file Stress: Not on file Social Connections: Not on file Intimate Partner Violence: Not on file Housing Stability: Not on file Objective LMP 06/28/2011 complete review of systems negative General: alert and oriented x3 female, no acute distress, appears currently stated age, pleasant, well nourished Skin: Left upper extremity does not reveal any erythema, ecchymosis, abrasion, laceration, skin breakdown otherwise, no atrophy Neurovascular: Left upper extremity reveals distal pulses +2, capillary refill is under 2 seconds, good sensation light touch, +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 Bony prominences are nontender. All associated and surrounding tendinous structures appear to be intact XR HAND 3 OR MORE VIEWS,03/20/2023 8:54 am HISTORY 57 y/owithchronic swelling left 1-3 fingers. COMPARISON Left hand radiographs from 02/27/2016. TECHNIQUE Left hand, three views. FINDINGS No visible fracture. Alignment is normal. No radiographic evidence of inflammatory arthropathy. Joint spaces are preserved. No significant soft tissue abnormality is appreciated. IMPRESSION IMPRESSION No acute findings or significant arthrosis. ASSESSMENT/PLAN: There are no diagnoses linked to this encounter. Impression: Left carpal tunnel syndrome Plan: Today 's findings were discussed with the patient. They were educated regarding their diagnosis. Exam is more consistent with carpal tunnel and not arthritis in the hand or fingers. CTS 6 scoreis 16.5. Multiple treatment options discussed and agreed upon, including nighttime bracing for 6 weeks. Follow-up at that time. No improvement and I would likely obtain an EMG to confirm carpal tunnel and refer to our surgical team. Patient is in agreement. The patient has no other questions or concerns. Pleased with today 's care. Call sooner if needed. This chart was completed in part utilizing [employer] Speech Voice Recognition Software. Grammatical errors, random word insertions, prounoun errors, and incomplete sentences are an occasional consequence of this system due to software limitations, ambient noise, and hardware issues. Any formal questions or concerns about the content, text, or information contained within the body of this dictation should be directly addressed to the provider for clarification. Hunter Bangura PA-C documented in this encounter Nursing Notes * Fernanda Mendoza LPN - 04/01/2023 10:12 AM EDT Left finger pain x 3 for 4 months. No trauma documented in this encounter Plan of Treatment Upcoming Encounters Date Type Specialty Care Team Description 05/08/2023 Office Visit Orthopedics Hunter Bangura PA-C [address] [place] [address] 06/17/2023 Office Visit Rheumatology Shahriar Trivedi MD [facility] [place] [address] 09/16/2023 Office Visit Otolaryngology Rocky Hines DO [address] [place] [address] Scheduled Procedures Name Priority Associated Diagnoses Date/Ti me COLONOSCOPY FLEXIBLE PROXIMA L DIAGNOSTIC Recall Special screening for malignant neoplasms, colon Scheduled Referrals Name Type Priority Associated Diagnoses Order Schedule ORTHOPAEDICS REFERRAL OP Referral Within 10 days (routine) Swelling of finger of left hand Rheumatoid arthritis involving multiple sites with positive rheumatoid factor (HCC) Ordered: 03/18/2023 Health Maintenance Due Date Last Done Comments [...] 10/19/2019 LUNG CANCER SCREENING - USE SMARTSET [id number] Completed 03/27/2021 GARDASIL-HPV IMMUNIZATION SERIES Aged Out [...] syndrome documented in this encounter Care Teams Chemistry Laboratory Technician Relationship Specialty Start Date End Date Lilly Thorne MD [address] [place] [address] PCP - General Internal Medicine 10/19/19 documented as of this encounter
--- OUTSIDE RECORDS SUMMARY | 2023-07-20 23:01 | External Medical Summary | Summary of Care ---
Author Name Unknown Organization [facility] Address [address] [place] [address] Phone [phone] Care Team Providers Care Cyber Security Name Role Phone Lilly Thorne MD Primary Care Provider [phone] Encounter Details Date Type Department Care Team [...] 06/17/2023 Office Visit Rheumatology Shahriar Trivedi MD [address] [place] [address] 09/16/2023 Office Visit Otolaryngology Rocky Hines DO [address] [place] [address] Scheduled Procedures Name Priority Associated Diagnoses Date/Ti me COLONOSCOPY FLEXIBLE PROXIMA L DIAGNOSTIC Recall Special screening for malignant neoplasms, colon Health Maintenance Due Date Last Done Comments DISCUSS TOBACCO CESSATION (REFER TO SMARTSET #1421) 1965 HIV Screening 1980 Alpha-1 Antitrypsin 1983 [...] 10/19/2019 LUNG CANCER SCREENING - USE SMARTSET [id number] Completed 03/27/2021 GARDASIL-HPV IMMUNIZATION SERIES Aged Out No longer eligible based on patient's age to complete this topic MENINGOCOCCAL (MENACTRA/MENVEO) Aged Out No longer eligible based on patient's age to complete this topic documented as of this encounter Medical Devices Not on filedocumented as of this encounter Care Teams Cyber Security Relationship Specialty Start Date End Date Lilly Thorne MD [address] [place] [address] [place] [address] PCP - General Internal Medicine 10/19/19 documented as of this encounter
--- OUTSIDE RECORDS SUMMARY | 2023-07-20 23:01 | External Medical Summary | Summary of Care ---
Author Name Unknown Organization [facility] Address [address] [place] [address] Phone [phone] Care Team Providers Care Ornamental Machine Operator Name Role Phone Lilly Thorne MD Primary Care Provider [phone] Encounter Details Date Type Department Care Team [...] Office Visit Rheumatology Shahriar Trivedi MD [address] [address] 09/16/2023 Office Visit Otolaryngology Rocky Hines DO [address] [place] [address] Scheduled Procedures Name Priority Associated Diagnoses Date/Ti me COLONOSCOPY FLEXIBLE PROXIMA L DIAGNOSTIC Recall Special screening for malignant neoplasms, colon Health Maintenance Due Date Last Done Comments DISCUSS TOBACCO CESSATION (REFER TO SMARTSET #3611) 1965 HIV Screening 1980 Alpha-1 Antitrypsin 1983 [...] 10/19/2019 LUNG CANCER SCREENING - USE SMARTSET [id number] Completed 03/27/2021 GARDASIL-HPV IMMUNIZATION SERIES Aged Out No longer eligible based on patient's age to complete this topic MENINGOCOCCAL (MENACTRA/MENVEO) Aged Out No longer eligible based on patient's age to complete this topic documented as of this encounter Medical Devices Not on filedocumented as of this encounter Care Teams Ornamental Machine Operator Relationship Specialty Start Date End Date Lilly Thorne MD [address] [place] [address] [place] [address] PCP - General Internal Medicine 10/19/19 documented as of this encounter
--- OUTSIDE RECORDS SUMMARY | 2023-07-20 23:02 | External Medical Summary ---
Author Name Unknown Address Unknown Organization [facility] [address] [place] [address] Laboratory Report Ordering Provider Test Date Status GITA DA SILVA 03/20/2023 08:29:20 Final Observation Date Value Abnormality Reference (Units ) Status Color of Urine by Auto 03/20/2023 08:29:20 Yellow Colorless, Light Yellow, Yellow, Dark Yellow Final Clarity, Urine 03/20/2023 08:29:20 Clear Clear Final Glucose [Mass/volume] in Urine by Automated test strip 03/20/2023 08:29:20 Negative Negative (mg/dL) Final Bilirubin.total [Presence] in Urine by Automated test strip 03/20/2023 08:29:20 Negative Negative Final Ketones [Mass/volume] in Urine by Automated test strip 03/20/2023 08:29:20 Negative Negative (mg/dL) Final Specific gravity, Urine 03/20/2023 08:29:20 1.017 1.003-1.030 Final Hemoglobin [Presence] in Urine by Automated test strip 03/20/2023 08:29:20 Negative Negative Final pH, Urine 03/20/2023 08:29:20 6.0 5.0-7.5 (Units) Final Protein [Mass/volume] in Urine by Automated test strip 03/20/2023 08:29:20 Negative Negative (mg/dL) Final Urobilinogen [Mass/volume] in Urine by Automated test strip 03/20/2023 08:29:20 Normal Normal (mg/dL) Final Nitrite [Presence] in Urine by Automated test strip 03/20/2023 08:29:20 Negative Negative Final Leukocyte esterase [Presence] in Urine by Automated test strip 03/20/2023 08:29:20 Negative Negative Final Annotation Comment 03/20/2023 08:29:20 Final Screen negative - Microscopi c not performed. Performing Location [facility] - [address] [place] [address]
--- OUTSIDE RECORDS SUMMARY | 2023-07-20 23:02 | External Medical Summary ---
Author Name Unknown Address Unknown Organization K01:[facility] [place] - [address] [place] [address] Laboratory Report Ordering Provider Test Date Status REKHAGITA 03/20/2023 08:29:20 Final Normal: <30 mg/g creatinine< br/>High: 30-300 mg/g creatinine
Very High: >300 mg/g creatinine
Nephrotic: >2200 mg/g creatinine Observation Date Value Abnormality Reference (Units ) Status Albumin, Urine 03/20/2023 08:29:20 2.17 (mg/dL) Final Creatinine, Urine 03/20/2023 08:29:20 68 (mg/dL) Final Albumin/Creatinine [Mass Ratio] in Urine 03/20/2023 08:29:20 32 Above high normal <30 (mg/g Creat) Final Performing Location [facility] [place] - [address] [place] [address]
--- OUTSIDE RECORDS SUMMARY | 2023-07-20 23:02 | External Medical Summary | Summary of Care ---
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 Name Role Phone Lilly Thorne MD Primary Care Provider [phone] Reason for Visit * Reason Onset Date Comments Medication Refill 03/04/2023 Encounter Details Date Type Department Care Team Description 03/04/2023 Refill [facility] [place] [place] [address], [place] [id number] Lillie Lim CRNP [address] [place] [address] Allergies Active Allergy Reactions Severity Noted Date Comments Ivp Dye Anaphylaxis High 10/05/1998 anaphylactic RX Nickel 02/29/2020 Nickel earrings-redness , swelling documented as of this encounter (statuses as of 03/04/2023) Medications Medication Sig Dispensed Refills Start Date End Date Status Naproxen Sodium 220 MG Oral Tablet Take 1 Tablet by mouth. 2 tabs every 12 hours as needed for pain 0 Active Fexofenadine HCl 180 MG Oral Tablet (Nguyen) Take 1 Tablet by mouth in the morning. 0 Active hydroCHLOROthiazide 25 MG Oral Tablet (Hydrodiuril)Indicat ions:COPD, group A, by GOLD 2017 classification ([facility]),SVT (supraventricular tachycardia) ([facility]) TAKE 1 TABLET BY MOUTH 2 TO 3 DAYS A WEEK 12 Tab 3 01/17/2021 Active Additional Information Patient not taking.Reported on 12/03/2022 Metamucil Smooth Texture 58.6 % Oral Powder (Psyllium)Indication s:Loose stools One scoop in 8 ounces of water daily, may inc up to three times a day.-st 03/20/2021 0 03/20/2021 Active traZODone HCl 50 MG Oral Tablet (Desyrel)Indications :Major depressive disorder, recurrent episode, moderate (HCC),Panic disorder with agoraphobia and mild panic attacks,ADHD (attention deficit hyperactivity disorder), combined type Take by mouth 1 Tablet before bedtime. 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 72 Tablet 1 03/27/2022 Active Additional Information Patient not taking.Reported on 12/03/2022 Metoprolol Succinate ER 25 MG Oral Tablet Extended Release 24 Hour (toPROL XL) TAKE 1 TABLET BY MOUTH EVERY DAY 30 Tablet 11 04/02/2022 Active Losartan Potassium 25 MG Oral Tablet (Cozaar)Indications: HTN, goal below 130/80 TAKE 1 TABLET BY MOUTH EVERY DAY 30 Tablet 13 08/06/2022 Active Omeprazole 20 MG Oral Capsule Delayed Release (PriLOSEC)Indication s:Gastroesophageal reflux disease, unspecified whether esophagitis present,Esophageal dysphagia,Encounter for long-term (current) use of medications TAKE 1 CAPSULE BY MOUTH EVERY DAY 1 HOUR BEFORE THE FIRST MEAL 90 Capsule 3 08/05/2022 Active Mometasone Furoate 50 MCG/ACT Nasal SuspensionIndication s:Acute sinusitis, recurrence not specified, unspecified location,Recurrent acute suppurative otitis media without spontaneous rupture of left tympanic membrane Administer 2 Sprays into each nostril in the morning. 1 g 0 08/14/2022 Active Additional Information Patient not taking.Reported on 09/03/2022 Ventolin HFA 108 (90 Base) MCG/ACT Inhalation Aerosol SolutionIndications: COPD, moderate (HCC) INHALE 2 PUFFS BY MOUTH EVERY 4 HOURS NEEDED FOR COUGH, SHORTNESS OF BREATH OR WHEEZING. 18 g 1 09/03/2022 Active buPROPion HCl ER (SR) 200 MG Oral Tablet Extended Release 12 Hour (Wellbutrin SR) Take one pill in the morning and one pill around 3pm. 60 Tablet 4 09/11/2022 Active Klor-Con M10 10 MEQ Oral Tablet Extended Release (potassium chloride ER)Indications:HTN, goal below 130/80,SVT (supraventricular tachycardia) (HCC) TAKE 1 TABLET BY MOUTH EVERY DAY 90 Tablet 3 11/05/2022 Active Hydroxychloroquine Sulfate 200 MG Oral Tablet (Plaquenil)Indicatio ns:Rheumatoid arthritis involving multiple sites with positive rheumatoid factor (HCC) Take 1.5 Tablets by mouth at bedtime. 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 270 Tablet 4 12/03/2022 Active predniSONE 10 MG Oral Tablet (Deltasone) Take 3 tabs for 2 days, 2 tabs for 2 days 1 tab for 2 days then stop 12 Tablet 4 12/03/2022 Active dilTIAZem HCl ER Beads 120 MG Oral Capsule Extended Release 24 HourIndications:SVT (supraventricular tachycardia) (HCC) TAKE 2 CAPSULES DAILY 180 Capsule 0 12/12/2022 Active Rinvoq 15 MG Oral Tablet Extended [...] the morning. 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 Never true 04/06/2019 Within the past 12 months, t he food you bought just didn't last and you didn't have money to get more. Never true 04/06/2019 Sex Assigned at Date Recorded Female 07/14/2019 2:[address] Job Start Date Occupation Industry Not on file Not on file Not on file documented as of this encounter Miscellaneous Notes * Telephone Encounter - VIRGINIA Zaldivar - 03/04/2023 4:23 PM EDT Did you pend patient's preferred pharmacy and medication before forwarding?yes Pharmacy: [id number] [facility] Pending Prescriptions: Disp Refills buPROPion HCl ER (SR) 200 MG Oral Tablet *60 Tab*4 Sig: Take one pill in the morning and one pill around 3pm. Last Visit: Visit date not found (in office), 01/10/2023 (telemedicine) Next Visit: Visit date not found If no future appointments scheduled, and last appointment is greater than a year ago, please schedule patient for a follow-up appointment Last date the medication was ordered: 09/11/2022 Urine Drug Screen:No results found for this or any previous visit. Patient Phone Numbers Labs: Lab Results Component Value Date/Time CREAT 0.7 12/03/2022 02:27 PM CREAT 0.8 08/15/2020 03:25 PM POTASSIUM 4.3 12/03/2022 02:27 PM POTASSIUM 3.8 08/15/2020 03:25 PM TSH 1.76 07/10/2021 09:48 AM TSH 1.27 01/05/2019 01:41 PM LDLCALC 82 07/10/2021 09:48 AM LDLCALC 51 01/05/2019 01:41 PM LDLDIRECT NOT APPLICABLE 01/05/2019 01:41 PM LDLDIRECT 79 02/24/2010 10:03 AM ALT 26 12/03/2022 02:27 PM ALT 31 06/27/2020 11:32 AM HGBA1C 5.3 12/15/2019 11:23 AM * Telephone Encounter - WYATT Ocampo - 03/04/2023 3:51 PM EDT Did you pend patient's preferred pharmacy and medication before forwarding?yes Pharmacy: [id number] [facility] Pending Prescriptions: Disp Refills buPROPion HCl ER (SR) 200 MG Oral Tablet *60 Tab*4 Sig: Take one pill in the morning and one pill around 3pm. Last Visit: Visit date not found (in office), 01/10/2023 (telemedicine) Next Visit: Visit date not found If no future appointments scheduled, and last appointment is greater than a year ago, please schedule patient for a follow-up appointment Last date the medication was ordered: 09.11.22 Is this request for a controlled substance?No Urine Drug Screen:No results found for this or any previous visit. Patient Phone Numbers Labs: Lab Results Component Value Date/Time CREAT 0.7 12/03/2022 02:27 PM CREAT 0.8 08/15/2020 03:25 PM POTASSIUM 4.3 12/03/2022 02:27 PM POTASSIUM 3.8 08/15/2020 03:25 PM TSH 1.76 07/10/2021 09:48 AM TSH 1.27 01/05/2019 01:41 PM LDLCALC 82 07/10/2021 09:48 AM LDLCALC 51 01/05/2019 01:41 PM LDLDIRECT NOT APPLICABLE 01/05/2019 01:41 PM LDLDIRECT 79 02/24/2010 10:03 AM ALT 26 12/03/2022 02:27 PM ALT 31 06/27/2020 11:32 AM HGBA1C 5.3 12/15/2019 11:23 AM documented in this encounter Plan of Treatment Upcoming Encounters Date Type Specialty Care Team Description 06/17/2023 [facility] Visit [facility] [address] [facility] [id number] [facility]/16/2023 Office Visit Otolaryngology Rocky Hines DO [address] [place] [id number] Scheduled Procedures Name Priority Associated Diagnoses Date/Ti me COLONOSCOPY FLEXIBLE PROXIMA L DIAGNOSTIC Recall Special screening for malignant neoplasms, colon Health Maintenance Due Date Last Done Comments DISCUSS TOBACCO CESSATION (REFER TO SMARTSET #[id number]) 1965 HIV Screening 1980 Alpha-1 Antitrypsin 1983 Fecal Occult Blood Test 2010 Sigmoidoscopy 2010 COVID-19 Vaccine (2 - Edson risk series) 02/16/2021 01/19/2021 Hepatitis B (3 of 3 - 19+ 3-dose series) 12/25/2021 10/30/2021, 05/01/2021 Cologuard 12/28/2021 12/28/2018 Mammogram 01/29/2023 01/29/2022, 02/2021, 01/18/2020, Additional history exists Influenza Vaccine (FLU shot) (#1) 2023 06/28/2020, 07/07/2019, 07/24/2016, Additional history exists Depression Screening, Annual for Pts 12 and Over 07/18/2023 07/18/2022 O2 ASSESSMENT COMPLETED IN PAST YEAR FOR COPD 09/03/2023 09/03/2022 Pap Smear 11/07/2025 11/07/2020, 06/19, 06/30/2015, Additional history exists Diabetes Screening 12/03/2025 12/03/2022, 0 01/17/2022, 07/10/2021, Additional history exists Lipid Panel 07/10/2026 07/10/2021, [...] 10/19/2019 LUNG CANCER SCREENING - USE SMARTSET 03072 Completed 03/27/2021 GARDASIL-HPV IMMUNIZATION SERIES Aged Out No longer eligible based on patient's age to complete this topic MENINGOCOCCAL (MENACTRA/MENVEO) Aged Out No longer eligible based on patient's age to complete this topic documented as of this encounter Medical Devices Not on filedocumented as of this encounter Care Teams Light Rail Train Operator Relationship Specialty Start Date End Date Lilly Thorne MD [address] [place] [address], [place] [address] PCP - General Internal Medicine 10/19/19 documented as of this encounter
--- OUTSIDE RECORDS SUMMARY | 2023-07-20 23:02 | External Medical Summary | Summary of Care ---
Author Name Unknown Organization [facility] Address [address] [place] [address] Phone [phone] Care Team Providers Care Rand Butter Name Role Phone Lilly Thorne MD Primary Care Provider [phone] Reason for Referral * Evaluate & Treat - Unlimited Visits (Within 10 days (routine)) - Pending Review Specialty Diagnoses / Procedures Referred By Michelle sams Referred To Contact Obstetrics/Gynecology / Gynecology Obstetrics Diagnoses Menopause Lilly Thorne MD [address] [place] [address] Referral ID Status Reason Start Date Expiration Date Visits Requested Visits Authorized [id number] Pending Review Specialty Services Required 03/18/[phone] Question Answer Referral Priority Within 10 days (routine) What condition is the patient being seen for? Annual Wellness * Evaluate & Treat - Unlimited Visits (Within 10 days (routine)) - Pending Review Specialty Diagnoses / Procedures Referred By Michelle sams Referred To Contact Orthopaedic Surgery / Orthopedics Diagnoses Swelling of finger of left hand Rheumatoid arthritis involving multiple sites with positive rheumatoid factor (HCC) Lilly Thorne MD [address] [place] [address] Referral ID Status Reason Start Date Expiration Date Visits Requested Visits Authorized [id number] Pending Review Specialty Services Required 03/18/[phone] Question Answer Referral Priority Within 10 days (routine) What body part is the patient being seen for? Hand What condition is the patient being seen for? Arthritis including related infection Reason for Visit * Reason Comments Follow Up The pt stated they a re here for a follow up appointment Acute The pt stated she villanueva s been having limited mobility, pain, and swelling in her L hand for approx 4 months Encounter Details Date Type Department Care Team Description 03/18/2023 Office Visit General Internal Medicine [facility] [address] [place] [address] Lilly Thorne MD [address] [place] [address] Swelling of finger of left hand*; Rheumatoid arthritis involving multiple sites with positive rheumatoid factor ([facility]); Paroxysmal SVT (supraventricular tachycardia) ([facility]); HTN, goal below 140/90; Abnormal CBC; Menopause Allergies Active Allergy Reactions Severity Noted Date Comments Ivp Dye Anaphylaxis High 10/05/1998 anaphylactic RX Nickel 02/29/2020 Nickel earrings-redness , swelling documented as of this encounter (statuses as of 03/18/2023) Medications Medication Sig Dispensed Refills Start Date [...] to three times a day.-st 03/20/2021 0 1 Active traZODone HCl 50 MG Oral Tablet (Desyrel)Indicatio ns:Major depressive disorder, recurrent episode, moderate (HCC),Panic disorder with agoraphobia and mild panic attacks,ADHD (attention deficit hyperactivity disorder), combined type Take by mouth 1 Tablet before bedtime. 90 Tablet 0 2 Active Metoprolol Succinate ER 25 MG Oral Tablet Extended Release 24 Hour (toPROL XL) TAKE 1 TABLET BY MOUTH EVERY DAY 30 Tablet 11 2 Active Omeprazole 20 MG Oral Capsule Delayed [...] OR WHEEZING. 18 g 1 3 Active buPROPion HCl ER (SR) 200 MG Oral Tablet Extended Release 12 Hour (Wellbutrin SR) Take one pill in the morning and one pill around 3pm. 60 Tablet 4 3 Active Hydroxychloroquine Sulfate 200 MG Oral Tablet (Plaquenil)Indicat ions:Rheumatoid arthritis involving multiple sites with positive rheumatoid factor (HCC) Take 1.5 Tablets by mouth at bedtime. 180 Tablet 1 3 Active Folic Acid 1 MG Oral TabletIndications: Rheumatoid arthritis involving multiple sites with positive rheumatoid factor (HCC) Take 3 Tablets by mouth in the morning. 270 Tablet 4 3 Active Rinvoq 15 MG Oral Tablet Extended Release 24 Hour (Upadacitinib ER) Take 1 Tablet by mouth in the morning. 30 Tablet 5 3 Active Escitalopram Oxalate 10 MG Oral Tablet (Lexapro) Take 1 Tablet by mouth in the morning. 30 Tablet 2 3 Active Trelegy Ellipta 100-62.5-25 MCG/ACT Aerosol Powder Breath Activated (Fluticasone-Umecl idinium-Vilanterol )Indications:COPD, moderate (HCC),Pulmonary emphysema, unspecified emphysema type (HCC) INHALE 1 PUFF BY MOUTH DAILY 60 Each 5 3 Active Leflunomide 10 MG Oral Tablet (Arava)Indications :Rheumatoid arthritis involving multiple sites with positive rheumatoid factor (HCC) Take 1 Tablet by mouth in the morning. 90 Tablet 1 3 Active dilTIAZem HCl ER Beads 120 MG Oral Capsule Extended Release 24 HourIndications:SV T (supraventricular tachycardia) (HCC) TAKE 2 CAPSULES DAILY 60 Capsule 0 3 Active Losartan Potassium 50 MG Oral Tablet (Cozaar)Indication s:HTN, goal below 140/90 Take 1 Tablet by mouth in the morning. 30 Tablet 0 3 Active hydroCHLOROthiazid e 25 MG Oral Tablet (Hydrodiuril)Indic ations:COPD, group A, by GOLD 2017 classification (HCC),SVT (supraventricular tachycardia) (HCC) TAKE 1 TABLET BY MOUTH 2 TO 3 DAYS A WEEK 12 Tab 3 1 03/18/20 23 Discontinued Methotrexate 2.5 MG Oral TabletIndications: Rheumatoid arthritis involving multiple sites with positive rheumatoid factor (HCC) Take by mouth 6 Tablets once a week . 72 Tablet 1 2 03/18/20 23 Discontinued Losartan Potassium 25 MG Oral Tablet (Cozaar)Indication s:HTN, goal below 130/80 TAKE 1 TABLET BY MOUTH EVERY DAY 30 Tablet 13 2 03/18/20 23 Discontinued(Me dication/Dose Changed) Mometasone Furoate 50 MCG/ACT Nasal SuspensionIndicati ons:Acute sinusitis, recurrence not specified, unspecified location,Recurrent acute suppurative otitis media without spontaneous rupture of left tympanic membrane Administer 2 Sprays into each nostril in the morning. 1 g 0 2 03/18/20 23 Discontinued Klor-Con M10 10 MEQ Oral Tablet Extended Release (potassium chloride ER)Indications:HTN , goal below 130/80,SVT (supraventricular tachycardia) (HCC) TAKE 1 TABLET BY MOUTH EVERY DAY 90 Tablet 3 3 03/18/20 23 Discontinued(En d of Procedure) predniSONE 10 MG Oral Tablet (Deltasone) Take 3 tabs for 2 days, 2 tabs for 2 days 1 tab for 2 days then stop 12 Tablet 4 3 03/18/20 23 Discontinued documented as of this encounter (statuses as of 03/18/2023) Active Problems Problem Noted Date Primary osteoarthritis [...] as of this encounter (statuses as of 03/18/2023) Resolved Problems Problem Noted Date Resolved Date [...] as of this encounter (statuses as of 03/18/2023) Immunizations Name Administration Dates Next Due Covid-19 [...] Sign Reading Time Taken Comments Blood Pressure 154/80 03/18/2023 4:41 PM EDT Pulse 76 03/18/2023 3:56 PM EDT Temperature 36.8 C (98.2 F) 03/18/2023 3:56 PM ED T Respiratory Rate - - Oxygen Saturation 98% 03/18/2023 3:56 PM EDT Inhaled Oxygen Concentration - - Weight 66 kg (145 lb 9.6 oz) 03/18/2023 3:56 PM EDT Height - - Body Mass Index 26.63 09/03/2022 10:12 AM EST documented in this encounter Progress Notes * Lilly Thorne MD - 03/18/2023 4:09 PM EDT SUBJECTIVE: Trudi AMEZCUA is a 57 year old female. Chief Complaint Patient presents with Follow Up The pt stated they are here for a follow up appointment Acute The pt stated she has been having limited mobility, pain, and swelling in her L hand for approx 4 months HPI: Last seen in the clinic October 2021. Wt Readings from Last 6 Encounters: 03/18/23 66 kg (145 lb 9.6 oz) 12/03/22 66.7 kg (147 lb) 09/17/22 67.5 kg (148 lb 14.4 oz) 09/03/22 66.7 kg (147 lb) 08/28/22 65.2 kg (143 lb 12.8 oz) 08/14/22 66.3 kg (146 lb 3.2 oz) BP Readings from Last 6 Encounters: 03/18/23 182/72 12/03/22 158/90 09/03/22 132/74 08/28/22 112/60 08/14/22 138/80 07/31/22 140/72 History of palpitations, PSVT, shortness of breath on exertion, GERD, history of asthma, smoked 1 pack a day for 38 years quit May 2019 and restarted 03/2021; rheumatoid arthritis followed by rheumatology; H/o NAFLD; moderate depression, panic disorder with agoraphobia followed by Psychiatry Presents today for acute appointment with symptoms of swelling of her left 2nd and 3rd fingers. States some she had swelling of the entire left hand earlier in November, saw rheumatology, felt she may have a flare-up of rheumatoid arthritis and was given Pred taper which she used in November, December and January, has not taken any this month. It did help swelling of her thumb but it did not help the 2nd and 3rd fingers. Denies any recent UTI or URI symptoms. Denies any neck pain. No injuries. Occasionally she may have a pain in her arm but no symptoms of radiculopathy Labs in December- normal CMP, CBC except slight decrease in lymphocytes, --he was awaiting a peripheral smear report before starting her back on methotrexate but snow report of a peripheral smear. She is due for 3 month labs which she will complete today Meds reviewed, she is still taking potassium and not hctz,advised to discontinue the same, blood pressure noted to be high today. She has been taking Naprosyn up to 3 a day ------- Saw card 05/11/19 metoprolol was discontinued and started Cardizem 120mg> ziopatch for 2 weeks. Dose of Cardizem was increased to 240 mg 06/12/2019, she had emailed their office reg sx and they added back metoprolol 12.5 mg 01/05/19-nml CBC,-chr macrocytosis sec MTX, CMP, LIPIDS,TSH,B12, Folate 02/04-night ox-nml Echo 04/06- EF 56%, no wall motion abnormality, no diastolic dysfunction. Tito Hardy Had cardiology eval 11/07/2020;c/o palpitations. 14 d Zio patchmonitor -SVT 1 run 10 bt at 158bpm,, 1run of VT 14bts at 203 bpm,--metoprolol inc 25mg/d, K added. 01/09/2021-echocardiogram normal, Lexiscan negative. 03/27/2021-LDCT chest >emphysema, subcentimeter pulmonary nodules largest left lower lobe 5 mm, azygos lobe, subsegmental atelectasis in the lingula 05/0978-WVZ-qxccazgk obstructive ventilatory impairment with evidence of air trapping. -discussed need to add LAMA - willing to try Trelegy, rpt PFT in [address] chest in 03/2022 -advised smoking cessation, states patches not helped her, remains on Wellbutrin, defers addition of Chantix 07/09-since changing Advair to Trelegy 05/09 states her breathing is much improved. Last colonoscopy 03/07/2020-sigmoid diverticulosis multiple small mouth, repeat in 10 years. Menopause age 40? BTL 2001 PAP--neg 2005,,03/29>>06/2014-ASCUS>>neg 07/05/201610/08--c/o chr lack sex drive x 4-5 yrs--going off wellbutrin did not help. Mild dyspareunia-has tried lubricants with +- results. 02/05-has [facility] appt 03/28/20-to david PAP neg 11/07/20 -f/u [facility] Mammogram-followed by research executive-MGM breast ca age 70s.>has dense breast tissue-last 01/29/22 Did not complete hep B vaccine series-defers 3rd dose today Immunization History Administered Date(s) Administered Covid-19 Ad26, Single Dose (Edson/J&J) 01/19/2021 Hepatitis B, 20+ yrs 05/01/2021, 10/30/2021 PPD 01/20/2007 Pneumococcal Conjugate Vacc, 13 Valent (Prevnar) 03/02/2019 Pneumococcal Polysaccharide PPV23 (Pneumovax) 10/11/2009, 09/09/2015 Seasonal Influenza, Quadrivalent, No Preserve, 6 Mons & Above, IM 07/07/2019, 06/28/2020 Seasonal Influenza, Quadrivalent, No Preserve, IM 06/30/2015, 07/24/2016 Seasonal Influenza, Split, IIV3, With Preserve, Inj 10/11/2009, 06/05/2010, 06/18/2011, 05/02/2013, 06/14/2014 TD, Preservative Free 06/28/2020 TDAP (age 11 and older)(Adacel) 02/24/2010 Zoster Vaccine Recombinant (Shingrix) 10/19/2019, 02/01/2020 Potassium Results: Lab Results Component Value Date/Time POTASSIUM - [facility] 4.3 12/03/2022 02:27 PM POTASSIUM - [facility] 4.2 01/17/2022 02:54 PM POTASSIUM - [facility] 4.3 07/10/2021 09:48 AM POTASSIUM - [facility] 3.8 08/15/2020 03:25 PM POTASSIUM - [facility] 4.2 01/05/2019 01:41 PM POTASSIUM - [facility] 5.0 05/22/2015 01:19 PM TSH Results: Lab Results Component Value Date/Time TSH - [facility] 1.76 07/10/2021 09:48 AM TSH - [facility] 1.27 01/05/2019 01:41 PM TSH - [facility] 1.64 06/06/2010 07:29 AM TSH - [facility] 1.87 02/24/2010 10:03 AM Patient Active Problem List Diagnosis Code Rheumatoid arthritis involving multiple sites with positive rheumatoid factor ([facility]) M05.79 Mixed rhinitis J31.0 Tobacco use disorder F17.200 Paresthesias in left hand R20.2 SVT (supraventricular tachycardia) ([facility]) I47.1 History of tobacco use Z87.891 Atypical squamous cell changes of undetermined significance (ASCUS) on vaginal cytology R87.620 Encounter for long-term (current) use of medications Z79.899 COPD, moderate ([facility]) J44.9 Pulmonary emphysema ([facility]) J43.9 Major depressive disorder, recurrent episode, moderate ([facility]) F33.1 ADHD (attention deficit hyperactivity disorder), combined [...] TABLET BYMOUTH EVERY DAY 30 Tablet 11 Losartan Potassium 25 MG Oral Tablet (Cozaar) TAKE 1 TABLET BY MOUTH EVERY DAY 30 Tablet 13 Omeprazole 20 MG Oral Capsule Delayed Release [...] one pill around 3pm. 60 Tablet 4 Klor-Con M10 10 MEQ Oral Tablet Extended Release (potassium chloride ER) TAKE 1 TABLET BY MOUTHEVERY DAY 90 Tablet 3 Hydroxychloroquine Sulfate 200 MG Oral Tablet [...] Ellipta 100-62.5-25 MCG/ACT Aerosol Powder Breath Activated (Ozrtfyiswvs-Lhwwhztwtrou-Znmjtyvpvt) INHALE 1 PUFF BY MOUTH DAILY 60 Each 5 Leflunomide 10 MG Oral Tablet (Arava) Take 1 Tablet by mouth in the morning. 90 Tablet 1 dilTIAZem HCl ER Beads 120 MG Oral Capsule Extended Release 24 Hour TAKE 2 CAPSULES DAILY 60 Capsule 0 No current facility-administered medications for this visit. Review of patient's allergies indicates: Allergen Reactions Ivp Dye Anaphylaxis anaphylactic RX Nickel Nickel earrings-redness , swelling OBJECTIVE: BP 182/72 | Pulse 76 | Temp 36.8 C (98.2 F) | Wt 66 kg (145 lb 9.6 oz) | LMP 06/28/2011 | SpO2 98% | BMI 26.63 kg/m | BSA 1.7 m PHYSICAL EXAM: Rpt bp 154/80\\ General: alert, healthy, no distress, well developed Neck: supple, no adenopathy, thyroid Not enlarged without nodularity Heart: regular rhythm and rate,No murmurs. Lungs: lungs clear to auscultation Extremities: no edema Left hand--mild swelling of the 2nd and 3rd MCP joint and diffuse swelling of the index and middle fingers with decreased flexion, no tenderness, no erythema or warmth.. ASSESSMENT/PLAN: Swelling of finger of left hand (Primary) - XR HAND 3 OR MORE VIEWS; Future; Expected date: 03/18/2023 - ORTHOPAEDICS REFERRAL OP - URINALYSIS, REFLEX TO MICROSCOPIC; Future; Expected date: 03/18/2023 - CULTURE, URINE, QUANTITATIVE; Future; Expected date: 03/18/2023 - TSH WITH FREE T4 IF INDICATED; Future; Expected date: 03/18/2023 Rheumatoid arthritis involving multiple sites with positive rheumatoid factor (HCC) - XR HAND 3 OR MORE VIEWS; Future; Expected date: 03/18/2023 - ORTHOPAEDICS REFERRAL OP - TSH WITH FREE T4 IF INDICATED; Future; Expected date: 03/18/2023 -repeat labs on file for rheumatology -Dactylitis from RA? Paroxysmal SVT (supraventricular tachycardia) (HCC) HTN, goal below 140/90 - Losartan Potassium 50 MG Oral Tablet (Cozaar); Take 1 Tablet by mouth in the morning. - TSH WITH FREE T4 IF INDICATED; Future; Expected date: 03/18/2023 - ALBUMIN / CREATININE RATIO, URINE; Future; Expected date: 03/18/2023 Inc dose losartan, stop K supplement Abnormal CBC Menopause - [facility] REFERRAL OP Follow Up: Return in about 1 month (around 04/18/2023) for Labs Today, Return with Physician. | For:Labs Today, Return with Physician | Check-out note: --40 min cpe , xle problems. (This note was completed using the dictation [...] with plan of care. Lilly Thorne MD 03/18/2023 documented in this encounter Nursing Notes * Hunter Apodaca LPN - 03/18/2023 3:56 PM EDT Chief Complaint Patient presents with Follow Up The pt stated they are here for a follow up appointment Acute The pt stated she has been having limited mobility, pain, and swelling in her L hand for approx 4 months documented in this encounter Plan of Treatment Upcoming Encounters Date Type Specialty Care Team Description 06/17/2023 Office Visit Rheumatology Shahriar Trivedi MD [address] [place] [address] 09/16/2023 Office Visit Otolaryngology Rocky Hines, DO [address] [place] [address] Scheduled Orders Name Type Priority Associated Diagnoses Orde r Schedule XR HAND 3 OR MORE VIEWS Medical Imaging Routine Swelling of finger of left hand Rheumatoid arthritis involving multiple sites with positive rheumatoid factor (HCC) Expected: 03/18/2023, Expires: 04/18/2024 URINALYSIS, REFLEX TO MICROSCOPIC Lab Routine Swelling of finger of left hand Expected: 03/18/2023, Expires: 03/18/2024 CULTURE, URINE, QUANTITATIVE Lab Routine Swelling of finger of left hand Expected: 03/18/2023, Expires: 03/18/2024 TSH WITH FREE T4 IF INDICATED Lab Routine Swelling of finger of left hand Rheumatoid arthritis involving multiple sites with positive rheumatoid factor (HCC) HTN, goal below 140/90 Expected: 03/18/2023 (Approximate), Expires: 03/17/2024 ALBUMIN / CREATININE RATIO, URINE Lab Routine HTN, goal below 140/90 Expected: 03/18/2023 (Approximate), Expires: 03/17/2024 Scheduled Procedures Name Priority Associated Diagnoses Date/Ti me COLONOSCOPY FLEXIBLE PROXIMA L DIAGNOSTIC Recall Special screening for malignant neoplasms, colon Scheduled Referrals Name Type Priority Associated Diagnoses Order Schedule ORTHOPAEDICS REFERRAL OP Referral Within 10 days (routine) Swelling of finger of left hand Rheumatoid arthritis involving multiple sites with positive rheumatoid factor (HCC) Ordered: 03/18/2023 [facility] REFERRAL OP Referral Within 10 days (routine) Menopause Ordered: 03/18/2023 Health Maintenance Due Date Last Done Comments DISCUSS TOBACCO CESSATION (REFER TO SMARTSET #4238) 1965 HIV Screening 1980 Alpha-1 Antitrypsin 1983 HPV/Co-Test 1995 Fecal Occult Blood Test 2010 Sigmoidoscopy 2010 COVID-19 Vaccine (2 - Edson risk series) 02/16/2021 01/19/2021 Hepatitis B (3 of 3 - 19+ 3-dose series) 12/25/2021 10/30/2021, 05/01/2021 Cologuard 12/28/2021 12/28/2018 Mammogram 01/29/2023 01/29/2022, /02/2021, 01/18/2020, Additional history exists Influenza Vaccine (FLU shot) (#1) 2023 06/28/2020, 07/07/2019, 07/24/2016, Additional history exists Depression Screening, Annual for Pts 12 and Over 07/18/2023 07/18/2022 O2 ASSESSMENT COMPLETED IN PAST YEAR FOR COPD 09/03/2023 09/03/2022 Cervical Cancer Screening 11/08/2023 Pap Smear 11/08/2023 11/07/2020, 06/19, 06/30/2015, Additional history exists Diabetes [...] 10/19/2019 LUNG CANCER SCREENING - USE SMARTSET 44598 Completed 03/27/2021 GARDASIL-HPV IMMUNIZATION SERIES Aged Out No longer eligible based on patient's age to complete this topic MENINGOCOCCAL (MENACTRA/MENVEO) Aged Out No longer eligible based on patient's age to complete this topic documented as of this encounter Medical Devices Not on filedocumented as of this encounter Visit Diagnoses Diagnosis Swelling of finger of left hand- Primary Swelling of limb Rheumatoid arthritis involving multiple sites with positive rheumatoid factor (HCC) Paroxysmal SVT (supraventricular tachycardia) (HCC) Paroxysmal supraventricular tachycardia HTN, goal below 140/90 Unspecified essential hypertension Abnormal CBC Other abnormal blood chemistry Menopause Asymptomatic postmenopausal status (age-related) (natural) documented in this encounter Care Teams Rand Butter Relationship Specialty Start Date End Date Lilly Thorne MD [address] [place] [phone] PCP - General Internal Medicine 10/19/19 documented as of this encounter"
--- OUTSIDE RECORDS SUMMARY | 2023-07-20 23:02 | External Medical Summary ---
Author Name Unknown Address Unknown Organization K09:[facility] [address] [place] [address] Laboratory Report Ordering Provider Test Date Status NIKKO ROSE 03/20/2023 08:23:59 Final Observation Date Value Abnormality Reference (Units ) Status BUN 03/20/2023 08:23:59 14 6-20 (mg/dL) Final Creatinine 03/20/2023 08:23:59 0.7 0.5-1.0 (mg/dL) Final Glomerular filtration rate/1.73 sq M.predicted [Volume Rate/Area] in Serum, Plasma or Blood by Creatinine-based formula (CKD-EPI) 03/20/2023 08:23:59 >90 >=60 (mL/min) Final eGFR is calculated based on the CKD-EPI 2020 equation SODIUM 03/20/2023 08:23:59 143 135-146 (m mol/L) Final Potassium 03/20/2023 08:23:59 4.3 3.5-5.1 (m mol/L) Final Cl 03/20/2023 08:23:59 107 98-107 (mm ol/L) Final CO2 03/20/2023 08:23:59 26 22-32 (mmo l/L) Final Anion gap 03/20/2023 08:23:59 10 7-15 (mmol /L) Final Glucose 03/20/2023 08:23:59 85 70-120 (mg /dL) Final Albumin 03/20/2023 08:23:59 4.6 3.8-5.0 (g /dL) Final AST (Aspartate aminotransferase) 03/20/2023 08:23:59 24 10-35 (U/L) Final Alk Phos 03/20/2023 08:23:59 55 35-130 (U/ L) Final Bilirubin, Total 03/20/2023 08:23:59 0.3 <=1 .2 (mg/dL) Final Calcium 03/20/2023 08:23:59 9.6 8.4-10.2 ( mg/dL) Final Protein 03/20/2023 08:23:59 6.5 6.0-8.3 (g /dL) Final ALT (Alanine aminotransferase) 03/20/2023 08:23:59 24 10-35 (U/L) Final Performing Location [facility] [id number] [place] [address]
--- OUTSIDE RECORDS SUMMARY | 2023-07-20 23:02 | External Medical Summary | Summary of Care ---
Author Name Unknown Organization [facility] Address [address] [place] [address] Phone [phone] Care Team Providers Care Museum Preparator Name Role Phone Rekha Thorne MD Primary Care Provider [phone] Reason for Visit * Reason Comments eRx-Medication Refill Encounter Details Date Type Department Care Team Description 03/12/2023 Refill Cardiology, [facility] [address] [facility] [place] [address] Lakisha Ferguson CRNP [address] [place] [address] SVT (supraventricular tachycardia) ([facility]) Allergies Active Allergy Reactions Severity Noted Date Comments Ivp Dye Anaphylaxis High 10/05/1998 anaphylactic RX Nickel 02/29/2020 Nickel earrings-redness , swelling documented as of this encounter (statuses as of 03/19/2023) Medications Medication Sig Dispensed Refills Start Date [...] CAPSULES DAILY 60 Capsule 0 3 Active hydroCHLOROthiazid e 25 MG [...] 12 Tablet 4 3 03/18/20 23 Discontinued dilTIAZem HCl ER Beads 120 MG Oral Capsule Extended Release 24 HourIndications:SV T (supraventricular tachycardia) (HCC) TAKE 2 CAPSULES DAILY 180 Capsule 0 3 03/12/20 23 Discontinued documented as of this encounter (statuses as of 03/19/2023) Active Problems Problem Noted Date Primary osteoarthritis [...] as of this encounter (statuses as of 03/19/2023) Resolved Problems Problem Noted Date Resolved Date [...] as of this encounter (statuses as of 03/19/2023) Immunizations Name Administration Dates Next Due Covid-19 [...] encounter Miscellaneous Notes * Telephone Encounter - Katherine Dias LPN - 03/14/2023 12:41 PM EDTSigned Prescriptions: Disp Refills dilTIAZem HCl ER Beads 120 MG Oral Capsule*60 Cap*0 Sig: TAKE 2 CAPSULES DAILY Authorizing Provider: REKHA THORNE * Telephone Encounter - Rekha Thorne MD - 03/12/2023 5:56 PM EDT Last seen October of 2021. Has appointment on the , prescription for one-month done pending recheck on blood pressure and heart rate * Telephone Encounter - WYATT Cotton - 03/12/2023 9:57 AM EDT Pending Prescriptions: Disp Refills dilTIAZem HCl ER Beads 120 MG Oral Capsule*180 Ca*3 Sig: TAKE 2 CAPSULES DAILY * Telephone Encounter - WYATT Cotton - 03/12/2023 9:55 AM EDT Called pt, scheduled med chaeck for 03/18 03/12 * Telephone Encounter - ABDOUL Reilly - 03/12/2023 8:34 AM EDTPending Prescriptions: Disp Refills dilTIAZem HCl ER Beads 120 MG Oral Capsule*180 Ca*3 Sig: TAKE 2 CAPSULES DAILY * Telephone Encounter - ABDOUL Reilly - 03/12/2023 8:33 AM EDT Patient has not been seen by cardiology since 2020 and has not responded to attempts to schedule. Defer to PCP for refills/follow up. documented in this encounter Plan of Treatment Upcoming Encounters Date Type Specialty Care Team Description 06/17/2023 Office Visit Rheumatology Shahriar Trivedi MD [address] [facility] [place] [address] 09/16/2023 Office Visit Otolaryngology Rocky Hines DO [address] [place] [address] Scheduled Procedures Name Priority Associated Diagnoses Date/Ti me COLONOSCOPY FLEXIBLE PROXIMA L DIAGNOSTIC Recall Special screening for malignant neoplasms, colon Health Maintenance Due Date Last Done Comments DISCUSS TOBACCO CESSATION (REFER TO SMARTSET #9221) 1965 HIV Screening 1980 Alpha-1 Antitrypsin 1983 [...] YEAR FOR COPD 03/18/2024 03/18/2023 Diabetes Screening 12/03/2025 12/03/2022, 0 01/17/2022, 07/10/2021, [...] 10/19/2019 LUNG CANCER SCREENING - USE SMARTSET 16718 Completed 03/27/2021 GARDASIL-HPV IMMUNIZATION SERIES Aged Out No longer eligible based on patient's age to complete this topic MENINGOCOCCAL (MENACTRA/MENVEO) Aged Out No longer eligible based on patient's age to complete this topic documented as of this encounter Medical Devices Not on filedocumented as of this encounter Visit Diagnoses Diagnosis SVT (supraventricular tachycardia) (HCC) Other specified cardiac dysrhythmias documented in this encounter Care Teams Museum Preparator Relationship Specialty Start Date End Date Rekha Thorne MD [address] [place] [address] PCP - General Internal Medicine 10/19/19 documented as of this encounter
--- OUTSIDE RECORDS SUMMARY | 2023-07-20 23:02 | External Medical Summary | Summary of Care ---
Author Name Unknown Organization [facility] Address [address] [place] [place] [place] [address] Phone [phone] Care Team Providers Care Tufting Machine Fixer Name Role Phone Lilly Thorne MD Primary Care Provider [phone] Reason for Visit * Reason Comments Outpatient Testing Encounter Details Date Type Department Care Team Description 03/20/2023 Laboratory Laboratory Scenery [place] [address] [place] [address] [facility] Lab Scenery [address] [place] [address] Rheumatoid arthritis involving multiple sites with positive rheumatoid factor (HCC); Encounter for long-term (current) use of high-risk medication; Encounter for long-term (current) use of medications; Swelling of finger of left hand; HTN, goal below 140/90 Allergies Active Allergy Reactions Severity Noted Date Comments Ivp Dye Anaphylaxis High 10/05/1998 anaphylactic RX Nickel 02/29/2020 Nickel earrings-redness , swelling documented as of this encounter (statuses as of 03/20/2023) Medications Medication Sig Dispensed Refills Start Date [...] as of this encounter (statuses as of 03/20/2023) Active Problems Problem Noted Date Primary osteoarthritis [...] as of this encounter (statuses as of 03/20/2023) Resolved Problems Problem Noted Date Resolved Date [...] as of this encounter (statuses as of 03/20/2023) Immunizations Name Administration Dates Next Due Covid-19 [...] Office Visit Rheumatology Shahriar Trivedi MD [address] [facility] [place] [address] 09/16/2023 Office Visit Otolaryngology Rocky Hines DO [address] [place] [address] Pending Results Name Type Priority Associated Diagnoses Date /Time CBC WITH WBC DIFFERENTIAL Lab Routine Rheumatoid arthritis involving multiple sites with positive rheumatoid factor (HCC) Encounter for long-term (current) use of high-risk medication 03/20/2023 8:23 AM EDT COMPREHENSIVE METABOLIC PANEL Lab Routine Rheumatoid arthritis involving multiple sites with positive rheumatoid factor (HCC) Encounter for long-term (current) use of high-risk medication 03/20/2023 8:23 AM EDT TSH WITH FREE T4 IF INDICATED Lab Routine Swelling of finger of left hand Rheumatoid arthritis involving multiple sites with positive rheumatoid factor (HCC) HTN, goal below 140/90 03/20/2023 8:23 AM EDT CBC Lab Routine Rheumatoid arthritis involving multiple sites with positive rheumatoid factor (HCC) Encounter for long-term (current) use of high-risk medication 03/20/2023 8:23 AM EDT DIFFERENTIAL, AUTOMATED Lab Routine Rheumatoid arthritis involving multiple sites with positive rheumatoid factor (HCC) Encounter for long-term (current) use of high-risk medication 03/20/2023 8:23 AM EDT URINALYSIS, REFLEX TO MICROSCOPIC Lab Routine Swelling of finger of left hand 03/20/2023 8:29 AM EDT CULTURE, URINE, QUANTITATIVE Lab Routine Swelling of finger of left hand 03/20/2023 8:29 AM EDT ALBUMIN / CREATININE RATIO, URINE Lab Routine HTN, goal below 140/90 03/20/2023 8:29 AM EDT Scheduled Procedures Name Priority Associated Diagnoses Date/Ti me COLONOSCOPY FLEXIBLE PROXIMA L DIAGNOSTIC Recall Special screening for malignant neoplasms, colon Health Maintenance Due Date Last Done Comments DISCUSS TOBACCO CESSATION (REFER TO SMARTSET #7158) 1965 HIV Screening 1980 Alpha-1 Antitrypsin 1983 [...] 10/19/2019 LUNG CANCER SCREENING - USE SMARTSET 22289 Completed 03/27/2021 GARDASIL-HPV IMMUNIZATION SERIES Aged Out [...] (HCC) Encounter for long-term (current) use of high-risk medication Encounter for long-term (current) use of other medications Encounter for long-term (current) use of medications Encounter for long-term (current) use of other medications Swelling of finger of left hand Swelling of limb HTN, goal below 140/90 Unspecified essential hypertension documented in this encounter Care Teams Tufting Machine Fixer Relationship Specialty Start Date End Date Lilly Thorne MD [address] [place] [address] [place] [address] PCP - General Internal Medicine 10/19/19 documented as of this encounter
--- OUTSIDE RECORDS SUMMARY | 2023-07-20 23:02 | External Medical Summary | Summary of Care ---
Author Name Unknown Organization [facility] Address [address] [place] [facility] [place] [address] Phone [phone] Care Team Providers Care Garment Steamer Name Role Phone Lilly Thorne MD Primary Care Provider [phone] Reason for Visit * Reason Comments Outpatient Testing Encounter Details Date Type Department Care Team Description 03/20/2023 Laboratory Laboratory Scenery [place] [address] [place] [address] [facility] Lab Scenery [address] [place] [address] Rheumatoid arthritis involving multiple sites with positive [...] 06/17/2023 Office Visit Rheumatology Shahriar Trivedi MD [address] [place] [address] 09/16/2023 Office Visit Otolaryngology Rocky Hines DO [address] [place] [address] Pending Results Name Type Priority Associated Diagnoses Date /Time COMPREHENSIVE METABOLIC PANEL Lab Routine Rheumatoid arthritis involving multiple sites with positive rheumatoid factor (HCC) Encounter for long-term (current) use of high-risk medication 03/20/2023 8:23 AM EDT TSH WITH FREE T4 IF INDICATED Lab Routine Swelling of finger of left hand Rheumatoid arthritis involving multiple sites with positive rheumatoid factor (HCC) HTN, goal below 140/90 03/20/2023 8:23 AM EDT URINALYSIS, REFLEX TO [...] Comments DISCUSS TOBACCO CESSATION (REFER TO SMARTSET #6036) 1965 HIV Screening 1980 Alpha-1 Antitrypsin 1983 [...] 10/19/2019 LUNG CANCER SCREENING - USE SMARTSET 02700 Completed 03/27/2021 GARDASIL-HPV IMMUNIZATION SERIES Aged Out No longer eligible based on patient's age to complete this topic MENINGOCOCCAL (MENACTRA/MENVEO) Aged Out No longer eligible based on patient's age to complete this topic documented as of this encounter Medical Devices Not on filedocumented as of this encounter Procedures Procedure Name Priority Date/Time Associated Diagnosis Comments DIFFERENTIAL, AUTOMATED Routine 03/20/2023 8:23 AM EDT Rheumatoid arthritis involving multiple sites with positive rheumatoid factor (HCC) Encounter for long-term (current) use of high-risk medication CBC WITH WBC DIFFERENTIAL Routine 03/20/2023 8:23 AM EDT Rheumatoid arthritis involving multiple sites with positive rheumatoid factor (HCC) Encounter for long-term (current) use of high-risk medication CBC Routine 03/20/2023 8:23 AM EDT Rheumatoid arthritis involving multiple sites with positive rheumatoid factor (HCC) Encounter for long-term (current) use of high-risk medication documented in this encounter Results * (ABNORMAL) DIFFERENTIAL, AUTOMATED (03/20/2023 8:23 AM EDT) WBC 6.01 4.00 - 10.80 K/uL 03/20/2023 8:40 AM EDT [facility] 56-02 Neutrophils % 41.3 40.0 - 75.0 % 03/20/2023 8:40 AM EDT [facility] 56-02 Lymphocytes % 44.4(H) 18.0 - 42.0 % 03/20/2023 8:40 AM EDT [facility] 56-02 Monocytes % 11.8(H) 1.0 - 11.0 % 03/20/2023 8:40 AM EDT [facility] Eosinophils % 1.8 0.0 - 6.0 % 03/20/2023 8:40 AM EDT [facility] Basophils % 0.7 0.0 - 2.0 % 03/20/2023 8:40 AM EDT [facility] Absolute Neutrophils 2.48 1.80 - 7.70 K/uL 03/20/2023 8:40 AM EDT [facility] Absolute Lymphocytes 2.67 1.00 - 4.80 K/ul 03/20/2023 8:40 AM EDT [facility] Absolute Monocytes 0.71 0.00 - 1.10 K/uL 03/20/2023 8:40 AM EDT [facility] Absolute Eosinophils 0.11 0.00 - 0.70 K/uL 03/20/2023 8:40 AM EDT [facility] Absolute Basophils 0.04 0.00 - 0.20 K/uL 03/20/2023 8:40 AM EDT [facility] Blood Venous blood specimen / Unknown Venipuncture / Unknown 03/20/2023 8:23 AM EDT 03/20/2023 8:27 AM EDT Shahriar Trivedi MD LAB BLOOD ORDERABLE S [facility] [address] [place] [address] * CBC (03/20/2023 8:23 AM EDT) WBC 6.01 4.00 - 10.80 K/uL 03/20/2023 8:40 AM EDT [facility] RBC 3.70 3.85 - 5.15 M/uL 03/20/2023 8:40 AM EDT [facility] HGB 12.7 12.0 - 15.3 g/dL 03/20/2023 8:40 AM EDT [facility] HCT 38.8 36.0 - 45.2 % 03/20/2023 8:40 AM EDT [facility] MCV 104.9 81.5 - 97.5 fL 03/20/2023 8:40 AM EDT [facility] MCH 34.3 27.0 - 34.0 pg 03/20/2023 8:40 AM EDT [facility] MCHC 32.7 32.0 - 36.0 g/dL 03/20/2023 8:40 AM EDT [facility] RDW 14.9 11.5 - 15.5 % 03/20/2023 8:40 AM EDT [facility] PLT 269 140 - 400 K/uL 03/20/2023 8:40 AM EDT [facility] MPV 9.7 6.6 - 11.1 fL 03/20/2023 8:40 AM EDT [facility] Blood Venous blood specimen / Unknown Venipuncture / Unknown 03/20/2023 8:23 AM EDT 03/20/2023 8:27 AM EDT Shahriar Trivedi MD LAB BLOOD ORDERABLE S [facility] [address] [place] [address] documented in this encounter Visit Diagnoses Diagnosis Rheumatoid arthritis [...] hypertension documented in this encounter Care Teams Garment Steamer Relationship Specialty Start Date End Date Lilly Thorne MD [address] [facility], [place] [id number] PCP - General Internal Medicine 10/19/19 documented as of this encounter
--- OUTSIDE RECORDS SUMMARY | 2023-07-20 23:02 | External Medical Summary ---
Author Name Unknown Address Unknown Organization K01:[facility] [place] [address] [facility] [place] [address] Laboratory Report Ordering Provider Test Date Status GITA DA SILVA 03/20/2023 08:23:59 Final Observation Date Value Abnormality Reference (Units ) Status TSH 03/20/2023 08:23:59 2.23 0.27-4.20 (uIU/mL) Final Performing Location [facility] - [address] [facility] [place] [address]
--- OUTSIDE RECORDS SUMMARY | 2023-07-20 23:02 | External Medical Summary | Summary of Care ---
Author Name Unknown Organization [facility] Address [address] [place] [place] [facility] [place] [address] Phone [phone] Care Team Providers Care Rubber Trimmer Name Role Phone Lilly Thorne MD Primary Care Provider [phone] Reason for Visit * Reason Onset Date Comments Medication Refill 12/04/2022 Encounter Details Date Type Department Care Team Description 12/04/2022 Refill Rheumatology [place] [address] [place] [address] Shahriar Trivedi MD [facility] [employer] [place] [address] Allergies Active Allergy Reactions Severity Noted Date Comments Ivp Dye Anaphylaxis High 10/05/1998 anaphylactic RX Nickel 02/29/2020 Nickel earrings-redness , swelling documented as of this encounter (statuses as of 02/13/2023) Medications Medication Sig Dispensed Refills Start Date End Date Status Naproxen Sodium 220 MG Oral Tablet Take 1 Tablet by mouth. 2 tabs every 12 hours as needed for pain 0 Active Fexofenadine HCl 180 MG Oral Tablet (Nguyen) Take 1 Tablet by mouth in the morning. 0 Active hydroCHLOROthiazide 25 MG Oral Tablet (Hydrodiuril)Indicat ions:COPD, group A, by GOLD 2017 classification ([facility]),SVT (supraventricular tachycardia) ([facility]) TAKE 1 TABLET BY MOUTH 2 TO [...] then stop 12 Tablet 4 12/03/2022 Active documented as of this encounter (statuses as of 02/13/2023) Active Problems Problem Noted Date Primary osteoarthritis [...] as of this encounter (statuses as of 02/13/2023) Resolved Problems Problem Noted Date Resolved Date [...] as of this encounter (statuses as of 02/13/2023) Immunizations Name Administration Dates Next Due Covid-19 [...] 06/17/2023 Office Visit Rheumatology Shahriar Trivedi MD [address] [facility] [place] [address] 09/16/2023 Office Visit Otolaryngology Rocky Hines DO [address] [place] [address] Scheduled Procedures Name Priority Associated Diagnoses Date/Ti me COLONOSCOPY FLEXIBLE PROXIMA L DIAGNOSTIC Recall Special screening for malignant neoplasms, colon Health Maintenance Due Date Last Done Comments DISCUSS TOBACCO CESSATION (REFER TO SMARTSET #8974) 1965 HIV Screening 1980 Alpha-1 Antitrypsin 1983 Fecal Occult Blood Test 2010 Sigmoidoscopy 2010 COVID-19 Vaccine (2 - Edson risk series) 02/16/2021 01/19/2021 Hepatitis B (3 of 3 - 19+ 3-dose series) 12/25/2021 10/30/2021, 05/01/2021 Cologuard 12/28/2021 12/28/2018 Mammogram 01/29/2023 01/29/2022, 02/2021, 01/18/2020, Additional history exists Influenza Vaccine (FLU shot) (Season Ended) 2023 06/28/2020, 07/07/2019, 07/24/2016, Additional history exists [...] (6 to 64 Years) (4 - PPSV23 if available, else PCV20) 2030 03/02/2019, 09/09/2015, 10/11/2009 DTaP,Tdap,and Td Vaccines (3 - Td or Tdap) 06/28/2030 06/28/2020, 02/24/2010 Zoster Vaccines Completed 02/01/2020, 10/19/2019 LUNG CANCER SCREENING - USE SMARTSET 45063 Completed 03/27/2021 GARDASIL-HPV IMMUNIZATION SERIES Aged Out No longer eligible based on patient's age to complete this topic MENINGOCOCCAL (MENACTRA/MENVEO) Aged Out No longer eligible based on patient's age to complete this topic documented as of this encounter Medical Devices Not on filedocumented as of this encounter Care Teams Rubber Trimmer Relationship Specialty Start Date End Date Lilly Thorne MD [address] [place] [address] PCP - General Internal Medicine 10/19/19 documented as of this encounter
--- OUTSIDE RECORDS SUMMARY | 2023-07-20 23:02 | External Medical Summary ---
Author Name Unknown Address Unknown Organization K09:[facility] [place] [address] Laboratory Report Ordering Provider Test Date Status NIKKO ROSE 03/20/2023 08:23:59 Final Observation Date Value Abnormality Reference (Units ) Status WBC, Total 03/20/2023 08:23:59 6.01 4.00-10.8 0 (K/uL) Final RBC 03/20/2023 08:23:59 3.70 3.85-5.15 (M/uL) Final Hemoglobin 03/20/2023 08:23:59 12.7 12.0-15.3 (g/dL) Final HCT 03/20/2023 08:23:59 38.8 36.0-45.2 (%) Final MCV 03/20/2023 08:23:59 104.9 81.5-97.5 (fL) Final MCH 03/20/2023 08:23:59 34.3 27.0-34.0 (pg) Final MCHC 03/20/2023 08:23:59 32.7 32.0-36.0 (g/dL) Final RDW 03/20/2023 08:23:59 14.9 11.5-15.5 (%) Final Platelets 03/20/2023 08:23:59 269 140-400 (K /uL) Final MPV 03/20/2023 08:23:59 9.7 6.6-11.1 ( fL) Final Performing Location [facility] [place] [address]
--- OUTSIDE RECORDS SUMMARY | 2023-07-20 23:02 | External Medical Summary | Summary of Care ---
Author Name Unknown Organization [facility] Address [address] [place] [address] Phone [phone] Care Team Providers Care General Assembler Name Role Phone Lilly Thorne MD Primary Care Provider [phone] Reason for Visit * Reason Onset Date Comments Appointment 03/22/2023 Encounter Details Date Type Department Care Team Description 03/22/2023 Telephone General Internal Medicine [facility] [address] [place] [address] Lilly Thorne MD [address] [place] [address] Appointment Allergies Active Allergy Reactions Severity Noted Date Comments Ivp Dye Anaphylaxis High 10/05/1998 anaphylactic RX Nickel 02/29/2020 Nickel earrings-redness , swelling documented as of this encounter (statuses as of 03/22/2023) Medications Medication Sig Dispensed Refills Start Date [...] as of this encounter (statuses as of 03/22/2023) Active Problems Problem Noted Date Primary osteoarthritis [...] as of this encounter (statuses as of 03/22/2023) Resolved Problems Problem Noted Date Resolved Date [...] as of this encounter (statuses as of 03/22/2023) Immunizations Name Administration Dates Next Due Covid-19 [...] Miscellaneous Notes * Telephone Encounter - WYATT Cotton - 03/22/2023 9:55 AM EDT LMOM re: f/u appt 03/22 JAT documented in this encounter Plan of Treatment Upcoming Encounters Date Type Specialty Care Team Description 06/17/2023 Office Visit Rheumatology Shahriar Trivedi MD [address] [facility] [place] [address] 09/16/2023 Office Visit Otolaryngology Rocky Hines DO [address] [place] [address] Scheduled Procedures Name Priority Associated Diagnoses Date/Ti [...] 10/19/2019 LUNG CANCER SCREENING - USE SMARTSET 09623 Completed 03/27/2021 GARDASIL-HPV IMMUNIZATION SERIES Aged Out No longer eligible based on patient's age to complete this topic MENINGOCOCCAL (MENACTRA/MENVEO) Aged Out No longer eligible based on patient's age to complete this topic documented as of this encounter Medical Devices Not on filedocumented as of this encounter Care Teams General Assembler Relationship Specialty Start Date End Date Lilly Thorne MD [address] [place] [address] PCP - General Internal Medicine 10/19/19 documented as of this encounter
[2023-07-20] MEDS ORDERED: PSYLLIUM or GUAR GUM FIBER POWDER PACKET PO PRN (23:42)
[2023-07-21] MEDS ORDERED: LORazepam 1 MG in SYRINGE 0.5 ML IV PRN ×2 (00:23→17:49)
[2023-07-21 00:30] LABS: Prothrombin Time 11.3 Seconds (9.0-12.0)
[2023-07-21] MEDS ORDERED: THIAMINE HCL 100 MG in SYRINGE 9 ML IV ONE (00:30)
[2023-07-21 01:29] LABS: Troponin I High Sensitivity 26.3 pg/ml (0-14)
[2023-07-21] MEDS: HYDROXYCHLOROQUINE SULFATE 200 MG TAB PO SCH ×2 (01:32→22:42)
[2023-07-21] MEDS ORDERED: dilTIAZem HCL 240 MG CAPCR PO STA (02:25)
[2023-07-21] MEDS ORDERED: SODIUM CHLORIDE 0.9% 1,000 ML IV ONE (02:45)
[2023-07-21] MEDS ORDERED: NSS + 20MEQ KCL 20 MEQ/1,000 ML BAG IV ONE (02:46)
[2023-07-21] MEDS ORDERED: cefTRIAXone SODIUM 2,000 MG in DEXTROSE 5 % MINI-B 50 ML IV SCH (04:00)
[2023-07-21] MEDS ORDERED: METOPROLOL TARTRATE 1 MG/ML VIAL IV STA ×2 (04:48→23:27)
[2023-07-21 05:25] LABS: Appearance Urine Clear (Clear); Bacteria Urine Automated Negative (Negative); Bilirubin Urine Negative (Negative); Blood Urine Trace (Negative); Color Urine Dark Yellow; Epithelial Cell Urine Auto >30 /lpf (0-5); Glucose Urine UA Negative (Negative); Ketones Urine 1+ (Negative); Leukocyte Esterase Urine Negative (Negative); Nitrite Urine Negative (Negative); Protein Urine 2+ (Negative); RBC Urine Automated 0-4 /hpf (0-4); Specific Gravity Urine 1.033 (1.000-1.030); Urobilinogen Urine Negative (Negative)
[2023-07-21] MEDS: PANTOprazole 40 MG TAB PO SCH (05:29)
[2023-07-21 06:11] LABS: Hematocrit (blood only) 39.4 % (37.0-47.0); Hemoglobin 13.3 g/dl (12.0-16.0); Mean Corpuscular Hemoglobin 33.5 pg (25.0-34.0); Mean Corpuscular Hgb Conc 33.8 g/dL (32.0-36.0); Mean Corpuscular Volume 99.2 fL (80.0-100.0); Mean Platelet Volume 11.2 fL (9.4-12.4); Platelet Count 116 K/uL (130-400); RDW Coefficient of Variation 13.4 % (11.5-14.5); Red Blood Count 3.97 M/uL (4.20-5.40); White Blood Count 10.16 K/ul (4.8-10.8)
[2023-07-21 06:33] LABS: Albumin Globulin Ratio 1.2 (0.9-2); Albumin Level 3.7 gm/dl (3.4-5.0); Bilirubin,Total 1.2 mg/dl (0.2-1.0); Calcium 8.1 mg/dl (8.6-10.3); Creatinine Clr Calc Pharmacy 90.7 ml/min; Est GFR (African American) 116.4 ml/min; Est GFR (Non-African American) 100.5 ml/min; Potassium 3.7 mmol/L (3.5-5.1); Total Protein 6.7 gm/dl (6.0-8.3)
[2023-07-21 06:59] LABS: Basophils # (auto) 0.03 K/uL (0.00-0.20); Basophils % (auto) 0.3 %; Echinocytes 1+; Immature Granulocytes # (auto) 0.14 K/uL (0.01-0.20); Immature Granulocytes % (auto) 1.4 %; Lymphocytes # (auto) 0.31 K/uL (1.20-3.40); Lymphocytes % (auto) 3.1 %; Monocytes # (auto) 0.13 K/uL (0.11-0.59); Monocytes % (auto) 1.3 %; Neutrophils # (auto) 9.55 K/uL (1.40-6.50); Neutrophils % (auto) 93.9 %; Polychromasia 1+
[2023-07-21 07:37] LABS: Estimated Average Glucose 117 mg/dl; Hemoglobin A1C 5.7 % (4.5-5.6)
[2023-07-21] MEDS: LEVALBUTEROL 1.25 MG/3 ML NEB NEB SCH ×4 (07:37→19:34)
[2023-07-21] MEDS: IPRATROPIUM BROMIDE NEB SOLN 0.02% 2.5 ML VIAL INH SCH ×4 (07:37→19:34)
[2023-07-21] MEDS: DOXYCYCLINE HYCLATE 100 MG CAP PO SCH ×2 (07:59→22:41)
[2023-07-21] MEDS: ESCITALOPRAM OXALATE 10 MG TAB PO SCH (08:00)
[2023-07-21] MEDS: METOPROLOL SUCC 25MG EXT REL TAB PO SCH (08:01)
[2023-07-21] MEDS: FEXOFENADINE HCL 180 MG TAB PO SCH (08:01)
[2023-07-21] MEDS: FOLIC ACID 1 MG TAB PO SCH (08:01)
[2023-07-21] MEDS: MULTIVITAMIN TAB PO SCH (08:02)
[2023-07-21] MEDS: UMECLIDINIUM/VILANTEROL 62.5/25MCG 7 PUFFS/INHALER INH SCH (08:03)
[2023-07-21] MEDS: predniSONE 20 MG TAB PO SCH (08:03)
[2023-07-21] MEDS: FLUTICASONE FUROATE 100MCG 14 PUFFS/INHALER INH SCH (08:04)
[2023-07-21] MEDS: ACETAMINOPHEN 500 MG TAB PO PRN (08:25)
[2023-07-21] MEDS ORDERED: buPROPion SR 100 MG TABCR PO SCH (09:00)
[2023-07-21] MEDS ORDERED: XOPENEX/ATROVENT 1.25mg/0.5MG NEB COMBO NEB SCH (09:00)
[2023-07-21] MEDS ORDERED: NON-FORMULARY MEDICATION (Fluticasone-Umeclidin-Vilanter [Trelegy Ellipta] 100-62.5-25 mcg INH SCH (09:00)
[2023-07-21] MEDS ORDERED: dilTIAZem HCL 240 MG CAPCR PO SCH (09:00)
--- NOTE | 2023-07-21 10:47 | Nephrology Consultation ---
Date of Consultation July 21, 2023 Assessment & Plan (1) Hyponatremia: improving moderate hyponatremia new onset but unknown if acute (ie, dx w/in 48 hrs of onset ) goal sNa for tomorrow AM is no more than 135 -continue to avoid nsaids, to hold losartan and bupropion -- any one of these can have a role in hyponatremia as can chronic or acute lung diseases -continue K rich NS at low rate -repeat bmp 1400 ordered > [id number]; u Osms 391; Lynette 27; K 4 -no indication for FR at this time -hx and labs to date most c/w hypovolemic hyponatremia in the setting of sepsis >> however she may not be responding consistently to fluid repletion so acute and chronic lung dz may well have a role also; for now continue low current rate of fluids and see how she does >>when taking regular diet, needs FR but none until then >> Had planned to continue NS w/ K for now at 50 mL hourly > however given lethargy and pulmonary exam will stop IV fluids Recheck bmp in AM -Encourage protein shakes when feasible -maintain eukalemia Care coordinated w/ Dr Calderon; would monitor respiratory and MS closely overnight. Doubt sodium is sole culprit or that moderate hyponatremia is driving MS changes. She may need an ABG at some point if not already done. History of Present Illness Reason for Consultation: hyponatremia Requesting Physician: Dr Calderon Attending Physician: Cookie Calderon MD History of Present Illness 58 y/o F whom I'm asked to see for hyponatremia was admitted last evening w/ severe sepsis in the setting of community acquired PNA in immunocompromised pt. PMH includes rheumatoid arthritis on leflunomide and janus kinase inhibitor, erythema nodosum, active tobacco abuse, HTN, PSVT, COPD, mood disorder. She had been sent to ER from weekend clinic after presenting there w/ fever, tachycardia, hypotension (SBP 90s) in the wake of a few days productive cough, fever/chills w/o SOB at home and w/ ? diminished MS intermittently. Pt also noted to be encephalopathic at admission, w/ concern hyponatremia may have a role. Presenting sodium 127 at 1700 12/2; up to 129 on AM labs today. serum osms 265, urine sodium studies pending. No prior hx of OP hyponatremia. She is on OP bupropion, prn naproxen, losartan. I reviewed her OP chart and found not imaging or labs suggestive of NAFLD. She had 2L NS in ER and was then started on NS w/ 20 mEq / L K at 50 mL /hr. ARB, NSAID, bupropion were held. K was also repleted po last evening. Currently on clears w/ no FR. Seen on late afternoon rounds with her partner at bedside. Patient had earlier complained of shortness of breath and back pain and she received a breathing treatment, lorazepam and a pain pill. Review of systems is limited by her diminished mental status presently; she is lethargic and arousable to answer 1 or 2 questions at most. She states her pain is better controlled. Does not answer Jean if I ask about shortness of breath. Allergies Allergy/AdvReac Type Severity Reaction Status Date / Time nickel Allergy Mild Rash Verified 07/20/23 19:11 IVP DYE Allergy Severe Anaphylaxis Uncoded 07/20/23 19:11 Home Medications Medication Instructions Recorded Confirmed Type albuterol sulfate 2.5 mg/3 mL 2.5 mg inhalation DIRECTED PRN 07/20/23 07/20/23 History (0.083 %) solution for nebulization Shortness Of Breath Or Wheezing albuterol sulfate 90 mcg/actuation 2 puff inhalation Q4H PRN 07/20/23 07/20/23 History aerosol inhaler (Ventolin HFA) COUGH/SHORT OF BREATH/WHEEZING bupropion HCl 200 mg tablet,12 hr 200 mg PO BID 07/20/23 07/20/23 History sustained-release diltiazem HCl 240 mg 240 mg PO QAM 07/20/23 07/20/23 History capsule,extended release 24 hr escitalopram oxalate 10 mg tablet 15 mg PO QAM 07/20/23 07/20/23 History fexofenadine 180 mg tablet 180 mg PO DAILY 07/20/23 07/20/23 History fluticasone fur. 100 mcg-umeclid 1 inh inhalation DAILY 07/20/23 07/20/23 History 62.5 mcg-vilant 25 mcg inhalat.powder (Trelegy Ellipta) folic acid 1 mg tablet 3 mg PO DAILY 07/20/23 07/20/23 History hydroxychloroquine 200 mg tablet 300 mg PO HS 07/20/23 07/20/23 History leflunomide 10 mg tablet 10 mg PO QAM 07/20/23 07/20/23 History losartan 100 mg tablet 100 mg PO QAM 07/20/23 07/20/23 History metoprolol succinate 25 mg 25 mg PO DAILY 07/20/23 07/20/23 History tablet,extended release 24 hr naproxen sodium 220 mg tablet 440 mg PO Q12H PRN Pain 07/20/23 07/20/23 History omeprazole 20 mg capsule,delayed 20 mg PO DAILYBB 07/20/23 07/20/23 History release potassium chloride 10 mEq 10 meq PO QAM 07/20/23 07/20/23 History tablet,extended release(part/cryst) (Klor-Con M) psyllium 1 tbsp PO DAILY PRN Constipation 07/20/23 07/20/23 History upadacitinib 15 mg tablet,extended 15 mg PO QAM 07/20/23 07/20/23 History release 24 hr (Rinvoq) Patient History Medical History (Updated 07/21/23 @ 18:11 by Cookie Calderon MD) Mood disorder HTN (hypertension) COPD (chronic obstructive pulmonary disease) Tobacco abuse Rheumatoid arthritis Surgical History (Updated 07/21/23 @ 10:39 by Tamra Osorio MD, PhD) H/O tubal ligation Family History (Updated 07/21/23 @ 10:39 by Tamra Osorio MD, PhD) Other Asthma Breast cancer COPD (chronic obstructive pulmonary disease) Social History Smoking Status: Current every day smoker Tobacco Type: Cigarettes Second Hand Exposure: No; Do You Dip or Chew Tobacco: No; Hx Alcohol Use: Yes Alcohol type: hard liquor Hx Substance Use: No Preferred Language: Vietnamese Communication Ability: Effective Shaper Hand Required: No Beliefs That Will Affect Care: None Current Living Situation: Spouse Feels Safe at Home: Yes Safety Concerns: Feels Safe At This Time Assistive Devices: None Review of Systems 2 Review of Systems: All systems reviewed & are unremarkable except as noted in HPI & below and Unobtainable due to reduced consciousness Physical Exam 2 Constitutional: well developed, well nourished, + altered mental status, + frail appearing and + lethargic Eyes: EOM intact bilaterally ENMT: Ears: no external ear abnormality Nose: no external nose abnormality Mouth: + dry oral mucous membranes Neck: no nuchal rigidity Respiratory: + tachypneic and + prolonged expiratory phase Auscultation: + diminished lung sounds and + rhonchi Cardiovascular: RRR, no murmur, no edema Gastrointestinal (Abdomen): Inspection/Auscultation: normal bowel sounds P ercussion/Palpation: abdomen soft; abdomen nontender Musculoskeletal: Extremities: strength 5/5 throughout Skin: no rashes, warm and dry Neurologic: Marked generalized weakness and two-person assist to sit up for lung exam; answers 1 yes or no question and falls asleep again Results & Data Vital Signs (Past 12 Hours) Vital Signs Temp Pulse Pulse Pulse Resp BP BP 07/21/23 07:52 38.4 C H 96 H 20 144/75 H 07/21/23 07:37 96 H 18 07/21/23 07:06 100 H 07/21/23 05:38 97 H 160/84 H 07/21/23 05:11 104 H 160/90 H 07/21/23 03:40 37 C 104 H 16 171/81 H 07/21/23 01:14 94 H 07/21/23 00:29 07/21/23 00:29 37.3 C 94 H 18 07/20/23 23:00 37.0 C 90 20 BP Pulse Ox O2 Del Method O2 Flow Rate 07/21/23 07:52 94 Room Air 07/21/23 07:37 94 Room Air 07/21/23 07:06 07/21/23 05:38 07/21/23 05:11 07/21/23 03:40 98 Nasal Cannula 2 07/21/23 01:14 07/21/23 00:29 Nasal Cannula 2 07/21/23 00:29 146/70 H 94 Nasal Cannula 2 07/20/23 23:00 146/84 H 96 Nasal Cannula 2 Laboratory Results 07/21/23 05:02 07/21/23 05:02 UA >> ketonuria, 2+ protein, trace blood, > 30 epis; [address] chest w/ IV con FINDINGS: Lungs are suboptimally assessed due to respiratory motion. There is extensive left upper lobe consolidation, predominantly within the lingula. Central airways are patent. There is no cavitation. There is a trace left pleural effusion. Severe emphysema is present. There is no consolidation within the right lung. Azygos fissure is incidentally noted. Right middle lobe linear density favors atelectasis. No acute fractures within the bony thorax are noted. There is a prominent AP window lymph node on image 77 of 233 measures 1 cm. Mild cardiomegaly is noted. There is no pericardial effusion. Visualized portions of the upper abdomen demonstrate mild fluid adjacent to the left adrenal gland and upper pole of the left kidney. No convincing evidence for pancreatitis within visualized portions of the abdomen. IMPRESSION: 1. Extensive lingular consolidation suggestive of pneumonia. A follow-up chest CT in 1 to 2 months to ensure resolution is recommended. Trace left pleural effusion. 2. Severe emphysema. 3. Prominent AP window lymph node. This is likely reactive but should be assessed on follow-up CT. 4. Mild fluid adjacent to left adrenal gland and upper pole of the left kidney. This finding is nonspecific.
--- NOTE | 2023-07-21 12:36 | Hospitalist Progress Note ---
Date of Service July 21, 2023 Assessment & Plan (1) Severe sepsis: Plan: (2) Sepsis: (3) Community acquired pneumonia: (4) Hyponatremia: (5) COPD exacerbation: (6) Encephalopathy: (7) Immunocompromised state: (8) Elevated troponin: (9) Abnormal liver enzymes: (10) Prediabetes: (11) Anxiety: Plan Pt is a 58yoF with PMHx significant for hypertension, PSVT, COPD, RA on immunosuppressive regimen, NAFLD, ADD/anxiety/mood disorder, cervical dysplasia, erythema nodosum, ongoing tobacco abuse admitted with sepsis in the setting of of pneumonia. Sepsis COPD exacerbation Pneumonia Pt with SOB from home WBC elevated at 14.68 on admission Chest xray concerning for pneumonia with opacities noted on the left CT chest with lingula consolidation- follow up CT chest recommended in 1-2 months to ensure resolution Sputum Cx pending Blood Cx x 2 pending Biofire negative, UA not suggestive of infection Pt immunocompromised Continue Rocephin and doxycycline Continue scheduled nebs, short course steroids oxygen supplementation as needed, pt currently on RA Noted clinical improvement per , WBC is now within normal limits Pulmonology consult if without improvement Continue to monitor Encephalopathy Possibly secondary to sepsis SIRS plus encephalopathy Head CT with no acute changes VBG on admission with low CO2 Hyponatremic, sodium 127 on admission- could be contributory Tox profile ordered for completion and to rule out a toxic cause Brain MRI ordered and pending Consider Neurology consult if symptoms do not improve Hyponatremia Sodium 127 on admission Home bupropion possible contributory Hyponatremic workup, careful correction of sodium nephrology consult- appreciate recs Appreciate recs RA Immunocompromised status hx rheumatoid arthritis on immunosuppressive regimen Hold Arava and Rinvoq RA medications for now until patient recovers from infection Continue hydroxychloroquine Elevated Troponins hs-Trop elevated at 17.6 to 28.5 to 26.3 EKG with sinus tach Echo ordered and pending Likely elevation of trop due to demand Livedo Reticularis Pt's with picture of rash Reticular pattern on lower extremities, states it comes and goes Was not present on lower extremities at time of exam today Associated with hypercoaguable states, vasculitis D-dimer ordered and pending If elevated consider imaging for DVT of lower extremities and PE Hypertension hx PSVT Continue home metoprolol and Diltiazem Hold home losartan Abnormal LFTs Hx NAFLD Possible alcoholic hepatitis Concern for alcohol abuse as per outpatient [facility] cardiology documentation last month Pt with episode on 07/21 noting she is anxious, having a headache, given one time dose of Ativan 0.5mg Concern for active withdrawal at this time AWSS at risk protocol switched to active protocol with Ativan, consider addition of gabapentin in the setting of encephalopathy DT precautions Continue to monitor for signs of alcohol withdrawal ADD/anxiety/mood disorder Home bupropion on hold in setting of hyponatremia and encephalopathy Continue home lexapro Hyperglycemia Hgba1c of 5.7 indicating prediabetes Ongoing tobacco abuse Nicotine patch Encourage cessation Diet: Clear liquid DVT prophylaxis: Lovenox subcu Full code Dispo: PT/OT ordered Admission and Anticipated Discharge Date Admission Date: July 20, 2023 Subjective Pt seen with at bedside. showing picture of reticular rash on her lower extremities that has since resolved. Notes that she is looking better but just very tired. Pt was sleeping, awakened and denied acute concerns. States that she was sleepy. later notified by nursing that she stated that she was anxious, SOB and had a headache. Review of Systems Review of Systems: All systems reviewed & are unremarkable except as noted in Subjective Physical Exam Physical Exam: General: Alert when awakened. No acute distress Skin: No noted rashes or bruises at the time of this exam Psych: Appropriate mood and affect Neuro: No gross deficits HEENT: drowsy CV: RRR Resp: Breath sounds clear bilaterally, no increased effort of breathing. Abdomen: Soft, nontender, nondistended. Extremities: No edema in lower extremities bilaterally. Results & Data Results & Data Vital Signs (Past 12 Hours) Vital Signs Temp Pulse Pulse Resp BP BP Pulse Ox 07/21/23 11:44 36.7 C 81 18 112/64 95 07/21/23 07:52 38.4 C H 96 H 20 144/75 H 94 07/21/23 07:37 96 H 18 94 07/21/23 07:06 100 H 07/21/23 05:38 97 H 160/84 H 07/21/23 05:11 104 H 160/90 H 07/21/23 03:40 37 C 104 H 16 171/81 H 98 07/21/23 01:14 94 H O2 Del Method O2 Flow Rate 07/21/23 11:44 Room Air 07/21/23 07:52 Room Air 07/21/23 07:37 Room Air 07/21/23 07:06 07/21/23 05:38 07/21/23 05:11 07/21/23 03:40 Nasal Cannula 2 07/21/23 01:14
--- NOTE | 2023-07-21 13:13 | Electrocardiogram Report ---
Test Reason : Blood Pressure : / mmHG Vent. Rate : 110 BPM Atrial Rate : 110 BPM P-R Int : 134 ms QRS Dur : 078 ms QT Int : 322 ms P-R-T Axes : 048 -18 001 degrees QTc Int : 435 ms Sinus tachycardia Moderate voltage criteria for LVH, may be normal variant ( R in aVL ) Septal infarct , age undetermined Abnormal ECG No previous ECGs available Confirmed by Amandeep Hinson ([id number]) on 07/21/2023 1:13:20 PM Referred By: REFERRED SELF Confirmed By:Amandeep Hinson
[2023-07-21] MEDS ORDERED: LORazepam 0.5 MG TAB PO STA (15:30)
[2023-07-21 16:00] LABS: BUN Creatinine Ratio 15.6 (10-20); Calcium 8.4 mg/dl (8.6-10.3); Est GFR (Non-African American) 98.4 ml/min
[2023-07-21] MEDS ORDERED: LORazepam 3 MG in SYRINGE 1.5 ML IV PRN (17:49)
[2023-07-21] MEDS ORDERED: GABAPENTIN 600 MG TAB PO ONE (17:49)
[2023-07-21] MEDS ORDERED: LORazepam 2 MG in SYRINGE 1 ML IV PRN (17:49)
[2023-07-21] MEDS ORDERED: Ativan IV Alcohol Withdrawal--Active Protocol IV PRN (17:49)
[2023-07-21] MEDS ORDERED: GABAPENTIN 1200MG ALCOHOL WITHDRAWAL LOAD PO STA (17:49)
[2023-07-21] MEDS ORDERED: ENOXAPARIN INJ 40 MG/0.4 ML SYR SQ SCH (18:15)
[2023-07-21 19:00] LABS: Base Excess VBG -4.9 mEq/L; HCO3 VBG 18 mmol/L; Oxygen Saturation VBG 84.5 %; PCO2 VBG 27 mmHg (38-50); PO2 VBG 50 mmHg; pH VBG 7.43 (7.36-7.41)
--- NOTE | 2023-07-21 19:24 | XRay Report ---
XR chest 1V portable HISTORY: dyspnea COMPARISON: Chest 07/20/2023. FINDINGS: No pneumothorax. No change in the left mid to lower lung zone airspace opacities. The heart remains mildly enlarged. No evidence for pulmonary edema. Incidental note is made of a right azygos lobe. Interstitial thickening again noted at the right lung base. IMPRESSION: No significant change in the left mid to lower lung zone airspace opacities. This likely represents a pneumonia. Follow-up to resolution recommended. ACT 112: Negative or not required by law. Electronically signed by: Lito Dias M.D. 07/21/2023 7:23 PM
[2023-07-21 19:48] LABS: D Dimer 3560 ug/L FEU (0-500)
--- NOTE | 2023-07-21 19:49 | Communication Note ---
Date of Service: July 21, 202307/21 7:45 PM Made aware by RN of abnormal ddimer Patient febrile despite current doxycycline and ceftriaxone antibiotic Rx. Patient sleepy and with flat affect as per RN. Serum sodium 124 from 128 at 315 PM AP Abnormal dimer rule out PE Recurrent fever, right lower lobe pneumonia, concern for aspiration given possible history alcohol abuse Worsening hyponatremia Low-dose IV heparin (given thrombocytopenia) for thromboembolic prophylaxis until PE ruled out by VQ scan/LE Dopplers (CT IV contrast IV precluded by prior anaphylactic reaction) Zosyn in place of ceftriaxone for broader coverage given patient immunocompromise from RA medications and concern for aspiration given possible alcohol abuse history Restart NSS IV fluid given encephalopathy, serial sodium check
[2023-07-21] MEDS ORDERED: CEFEPIME 2,000 MG in SYRINGE 0 ML IV SCH (20:00)
[2023-07-21] MEDS ORDERED: Heparin IV Adult Wt-Based Low-Dose *NO* INITIAL Bolus Protocol IV SCH (20:15)
[2023-07-21] MEDS: HEPARIN SODIUM/DEXTROSE 25,000 UNITS/500 ML BAG IV SCH (21:02)
[2023-07-21] MEDS: PIPERACILLIN/TAZOBACTAM 4.5 GM in DEXTROSE 5% MINI-B 100 ML IV SCH (22:27)
[2023-07-21] MEDS: NICOTINE 14 MG/24 HR PATCH TD SCH (22:41)
--- NOTE | 2023-07-21 23:27 | Ultrasound Report ---
Exam(s): US VENOUS BILATERAL LOWER EXTREMITIES EXAM: US Duplex Bilateral Lower Extremities Veins CLINICAL HISTORY: Reason for exam: abn dimer, send px only after iv heparin started. TECHNIQUE: Real-time duplex ultrasound scan of the bilateral lower extremity veins integrating B-mode two-dimensional vascular structure, Doppler spectral analysis, color flow Doppler imaging and compression. COMPARISON: No relevant prior studies available. FINDINGS: Right deep veins: Unremarkable. No DVT in the right common femoral, femoral, proximal deep femoral or popliteal veins. The veins demonstrate normal color flow, are normally compressible, with normal phasic flow and/or augmentation response. Right superficial veins: Unremarkable. No thrombus in the visualized right great saphenous vein. Left deep veins: Unremarkable. No DVT in the left common femoral, femoral, proximal deep femoral or popliteal veins. The veins demonstrate normal color flow, are normally compressible, with normal phasic flow and/or augmentation response. Left superficial veins: Unremarkable. No thrombus in the visualized left great saphenous vein. Soft tissues: No acute abnormality. No popliteal cyst. IMPRESSION: No evidence of deep venous thrombosis. Electronically signed by: Mauro Angel M.D. 07/21/23 23:26 PM
[2023-07-21] MEDS ORDERED: MAGNESIUM SULFATE / D5W 1 GM/100 ML BAG IV ONE (23:30)
[2023-07-21] MEDS ORDERED: GABAPENTIN 600 MG TAB PO SCH (23:45)
[2023-07-22] MEDS ORDERED: GADOBUTROL 65ML VIAL IV ONE (00:47)
[2023-07-22] MEDS ORDERED: LACTATED RINGER'S 1,000 ML IV ONE (00:54)
[2023-07-22 01:03] LABS: Creatinine Clr Calc Pharmacy 97.2 ml/min; Est GFR (African American) 119.1 ml/min; Est GFR (Non-African American) 102.8 ml/min
[2023-07-22] MEDS: ACETAMINOPHEN 500 MG TAB PO PRN ×3 (01:23→19:05)
[2023-07-22] MEDS ORDERED: SODIUM CHLORIDE 0.9% 1,000 ML IV ONE (01:33)
--- NOTE | 2023-07-22 01:46 | Magnetic Resonance Report ---
Exam(s): MRI HEAD W/WO Contrast IV Amt: 6.5cc gadavist EXAM: MR Head Without and With Intravenous Contrast CLINICAL HISTORY: Reason for exam: Encephalopathy. TECHNIQUE: Magnetic resonance images of the head/brain without and with intravenous contrast in multiple planes. CONTRAST: Patient received 6.5cc gadavist of IV contrast COMPARISON: CT brain 07-20-2023. FINDINGS: Study is limited by patient motion. Brain: Age-appropriate central and peripheral atrophy. Mild degree of supratentorial periventricular and subcortical white matter hyperintensities on FLAIR and T2-weighted images. No hemorrhage. No acute infarct. No abnormal extra-axial fluid collection. No abnormal parenchymal or leptomeningeal enhancement postcontrast. Ventricles: No midline shift. No ventriculomegaly. Bones/joints: Unremarkable. No acute fracture. Sinuses: Unremarkable as visualized. No acute sinusitis. Mastoid air cells: Unremarkable as visualized. No mastoid effusion. Orbits: Unremarkable as visualized. IMPRESSION: 1. No acute stroke or hemorrhage. 2. Nonspecific white matter changes most commonly seen with small vessel disease. Electronically signed by: Mauro Angel M.D. 07/22/23 01:45 AM
[2023-07-22 03:59] LABS: Albumin Globulin Ratio 1.1 (0.9-2); BUN Creatinine Ratio 16.9 (10-20); Bilirubin,Total 0.8 mg/dl (0.2-1.0); Calcium 7.8 mg/dl (8.6-10.3); Creatinine Clr Calc Pharmacy 83.7 ml/min; Est GFR (African American) 113.4 ml/min; Est GFR (Non-African American) 97.9 ml/min; Globulin 2.7 gm/dl (2.5-4.0); Magnesium 1.8 mg/dl (1.7-2.4); Phosphorus 1.7 mg/dl (2.5-4.9); Potassium 3.4 mmol/L (3.5-5.1); Total Protein 5.7 gm/dl (6.0-8.3)
[2023-07-22 04:03] LABS: Hematocrit (blood only) 31.6 % (37.0-47.0); Hemoglobin 10.8 g/dl (12.0-16.0); Mean Corpuscular Hemoglobin 33.4 pg (25.0-34.0); Mean Corpuscular Hgb Conc 34.2 g/dL (32.0-36.0); Mean Corpuscular Volume 97.8 fL (80.0-100.0); Mean Platelet Volume 11.1 fL (9.4-12.4); Platelet Count 104 K/uL (130-400); RDW Coefficient of Variation 13.6 % (11.5-14.5); RDW Standard Deviation 49.3 fL (36.4-46.3); Red Blood Count 3.23 M/uL (4.20-5.40); White Blood Count 6.78 K/ul (4.8-10.8)
[2023-07-22 04:09] LABS: Partial Thromboplastin Ratio 1.2; Partial Thromboplastin Time 33.3 Seconds (21.0-31.0)
[2023-07-22] MEDS ORDERED: STAT IV/IM STA (04:25)
[2023-07-22] MEDS ORDERED: NSS + 20MEQ KCL 20 MEQ/1,000 ML BAG IV ONE (04:30)
[2023-07-22 04:37] LABS: Basophils # (auto) 0.02 K/uL (0.00-0.20); Basophils % (auto) 0.3 %; Immature Granulocytes # (auto) 0.03 K/uL (0.01-0.20); Immature Granulocytes % (auto) 0.4 %; Lymphocytes # (auto) 0.18 K/uL (1.20-3.40); Lymphocytes % (auto) 2.7 %; Monocytes # (auto) 0.17 K/uL (0.11-0.59); Monocytes % (auto) 2.5 %; Neutrophils # (auto) 6.38 K/uL (1.40-6.50); Neutrophils % (auto) 94.1 %; Polychromasia 1+
[2023-07-22] MEDS ORDERED: CALCIUM GLUCONATE 10% 1,000 MG in SODIUM CHLOR 0.9% MINI-B 50 ML IV ONE (04:45)
[2023-07-22] MEDS: PIPERACILLIN/TAZOBACTAM 4.5 GM in DEXTROSE 5% MINI-B 100 ML IV SCH ×3 (05:14→20:27)
[2023-07-22] MEDS ORDERED: HEPARIN SOD (PORCINE) 1000 UNIT/ML IV ONE (05:15)
[2023-07-22] MEDS: PANTOprazole 40 MG TAB PO SCH (05:54)
[2023-07-22] MEDS: LEVALBUTEROL 1.25 MG/3 ML NEB NEB SCH ×4 (07:30→19:44)
[2023-07-22] MEDS: IPRATROPIUM BROMIDE NEB SOLN 0.02% 2.5 ML VIAL INH SCH ×4 (07:31→19:44)
[2023-07-22] MEDS: predniSONE 20 MG TAB PO SCH (08:11)
[2023-07-22] MEDS: dilTIAZem HCL 240 MG CAPCR PO SCH (08:12)
[2023-07-22] MEDS: DOXYCYCLINE HYCLATE 100 MG CAP PO SCH (08:12)
[2023-07-22] MEDS: THIAMINE HCL 100 MG TAB PO SCH (08:12)
[2023-07-22] MEDS: FOLIC ACID 1 MG TAB PO SCH (08:13)
[2023-07-22] MEDS: MULTIVITAMIN TAB PO SCH (08:13)
[2023-07-22] MEDS: METOPROLOL SUCC 25MG EXT REL TAB PO SCH (08:13)
[2023-07-22] MEDS: FLUTICASONE FUROATE 100MCG 14 PUFFS/INHALER INH SCH (08:14)
[2023-07-22] MEDS: UMECLIDINIUM/VILANTEROL 62.5/25MCG 7 PUFFS/INHALER INH SCH (08:14)
[2023-07-22] MEDS: FEXOFENADINE HCL 180 MG TAB PO SCH (08:14)
--- NOTE | 2023-07-22 09:41 | Nephrology Progress Note ---
Date of Service July 22, 2023 Assessment & Plan Admission and Anticipated Discharge Date Admission Date: July 20, 2023 Subjective Assessment & Plan (1) Hyponatremia: Na initially improved and then dropped to 124 again. NS restarted and then went to 126. Pending BMP now. Will decide further after the result. continue to avoid nsaids, to hold losartan and bupropion -- can have a role in hyponatremia as can chronic or acute lung diseases continue K rich NS at low rate for now 50ml/hr On Liquid diet which will make it hard to raise Na+. Likely hypovolemic hyponatremia in the setting of sepsis But also has Some component of SIADH. After pending labs will decide further S-feels weak. On liquid and jello diet. Not eating much. na dropped to 124 and then NS restarted. Physical Exam Constitutional: lethargic and weak. Sleepy. eyes close + dry oral mucous membranes Neck: Supple no jvd Respiratory: + tachypneic and + prolonged expiratory phase Auscultation: + diminished lung sounds and + rhonchi Cardiovascular: RRR, no murmur, no edema Gastrointestinal (Abdomen): Inspection/Auscultation: normal bowel sounds Percussion/Palpation: abdomen soft; abdomen nontender Musculoskeletal: Extremities: strength 5/5 throughout Skin: no rashes, warm and dry Neurologic: Marked generalized weakness answers 1 yes or no question and falls asleep again Results & Data Vital Signs (Past 12 Hours) Vital Signs Temp Pulse Pulse Resp BP BP Pulse Ox 07/22/23 07:32 88 18 93 07/22/23 03:40 36.7 C 81 18 140/86 92 07/22/23 01:47 95 H 07/22/23 01:17 100 H 164/84 H 07/21/23 22:26 36.8 C 103 H 18 171/81 H 90 07/21/23 22:22 102 H O2 Del Method O2 Flow Rate 07/22/23 07:32 Nasal Cannula 3 07/22/23 03:40 Nasal Cannula 3 07/22/23 01:47 07/22/23 01:17 07/21/23 22:26 Nasal Cannula 3 07/21/23 22:22
[2023-07-22] MEDS ORDERED: ALBUT/IPRATROP 3MG/0.5MG NEB 3 ML VIAL NEB STA (10:26)
--- NOTE | 2023-07-22 10:28 | Nuclear Medicine Report ---
NM pul perfusion CLINICAL HISTORY: Shortness of breath ro pe, abn dimer. COMPARISON STUDY: Chest CT 07/20/2023. Chest x-ray 07/21/2023. TECHNIQUE: Immediately following the intravenous administration of 5.8 mCi of technetium 99 M MAA for the perfusion scan, anterior, oblique, lateral, and posterior views of the chest were obtained. The ventilation scan was not performed due to coronavirus protocols. FINDINGS: A large perfusion defect seen throughout the majority of the left mid to lower lung zone wh ich corresponds to the opacity on the recent chest x-ray. There is an additional perfusion defect see n within the right lung apex. The cardiac silhouette is mildly enlarged. IMPRESSION: 1. Large perfusion defect seen throughout the labrum and left mid to lower lung zone which correspond s to the opacity on the recent chest x-ray. 2. There is an additional perfusion defect within the right lung apex. 3. These findings suggest an intermediate to high probability scan. ACT 112: Negative or not required by law. Electronically signed by: Lito Dias M.D. 07/22/2023 10:25 AM
--- NOTE | 2023-07-22 10:36 | Hospitalist Progress Note ---
Date of Service July 22, 2023 Assessment & Plan (1) Severe sepsis: (2) Sepsis: (3) Community acquired pneumonia: (4) Hyponatremia: (5) COPD exacerbation: (6) Encephalopathy: (7) Immunocompromised state: (8) Elevated troponin: (9) Abnormal liver enzymes: (10) Prediabetes: (11) Anxiety: Plan Pt is a 58yoF with PMHx significant for hypertension, PSVT, COPD, RA on immunosuppressive regimen, NAFLD, ADD/anxiety/mood disorder, cervical dysplasia, erythema nodosum, ongoing tobacco abuse admitted with sepsis in the setting of of pneumonia. Sepsis COPD exacerbation Pneumonia Pt with SOB from home WBC elevated at 14.68 on admission, has since become normal Chest xray concerning for pneumonia with opacities noted on the left CT chest with lingula consolidation- follow up CT chest recommended in 1-2 months to ensure resolution V/Q scan with indeterminate to high suspicion for PE- continue heparin at this time Sputum Cx with NGTD Blood Cx x 2 with NGTD Biofire negative, UA not suggestive of infection Pt immunocompromised Originally on Rocephin and doxycycline, broadened to Zosyn, switched doxy to azithromycin Continue scheduled nebs oxygen supplementation as needed, pt now with increased oxygen need Pulmonology consult placed, appreciate recs -MRSA Screen negative -Legionella pending -continue Zosyn, switch doxy to azithromycin -discontinue steroids -Hold all immunosuppressants -Start percussive vest therapy 4 times daily -start hypertonic saline twice daily -continue nebs QID -wean oxygen as tolerated with goal above 90% Continue to monitor Encephalopathy Possibly secondary to sepsis SIRS plus encephalopathy Head CT with no acute changes VBG on admission with low CO2 Hyponatremic, sodium 127 on admission- could be contributory Tox profile ordered for completion and to rule out a toxic cause Brain MRI unremarkable Consider Neurology consult if symptoms do not improve- pt more alert today Minimize use of narcotics for pain Hyponatremia Sodium 127 on admission Home bupropion possible contributory Hyponatremic workup, careful correction of sodium nephrology consult- appreciate recs On fluids per nephro RA Immunocompromised status hx rheumatoid arthritis on immunosuppressive regimen Hold Arava and Rinvoq RA medications for now until patient recovers from infection Hold hydroxychloroquine Elevated Troponins hs-Trop elevated at 17.6 to 28.5 to 26.3 EKG with sinus tach Echo ordered with no acute changes Likely elevation of trop due to demand Livedo Reticularis Pt's with picture of rash Reticular pattern on lower extremities, states it comes and goes Was not present on lower extremities at time of exam today Associated with hypercoaguable states, vasculitis D-dimer ordered and elevated -lower extremity doppler with no DVT -V/Q scan with indeterminate to high suspicion for PE- continue heparin at this time Hypertension hx PSVT Continue home metoprolol and Diltiazem Hold home losartan Continue to monitor Abnormal LFTs Hx NAFLD Possible alcoholic hepatitis Concern for alcohol abuse as per outpatient [facility] cardiology documentation last month Pt with episode on 07/21 noting she is anxious, having a headache, given one time dose of Ativan 0.5mg Concern for active withdrawal at this time AWSS at risk protocol switched to active protocol with Ativan, consider addition of gabapentin in the setting of encephalopathy DT precautions Continue to monitor for signs of alcohol withdrawal ADD/anxiety/mood disorder Home bupropion on hold in setting of hyponatremia and encephalopathy Holding home lexapro Hyperglycemia Hgba1c of 5.7 indicating prediabetes Monitor Ongoing tobacco abuse Nicotine patch Encourage cessation Diet: Clear liquid DVT prophylaxis: Lovenox subcu Full code Dispo: PT/OT ordered Admission and Anticipated Discharge Date Admission Date: July 20, 2023 Subjective Pt seen in AM, in some mild distress with SOB. Stated that she felt like it was more difficult for her to breathe. Putting her on oxymask helped with her symptoms. at bedside. Pt was more alert today. Review of Systems Review of Systems: All systems reviewed & are unremarkable except as noted in Subjective Physical Exam Physical Exam: General: Alert, some mild distress with breathing Skin: Reticular rash noted on lower extremities Psych: Appropriate mood and affect Neuro: difficulty with movement in the bed HEENT: NC/AT CV: RRR Resp: Breath sounds with wheezing bilaterally, some increased effort of breathing. Abdomen: Soft, nontender, nondistended. Extremities: No edema in lower extremities bilaterally. Results & Data Results & Data Vital Signs (Past 12 Hours) Vital Signs Temp Pulse Pulse Resp BP BP Pulse Ox 07/22/23 07:32 88 18 93 07/22/23 03:40 36.7 C 81 18 140/86 92 07/22/23 01:47 95 H 07/22/23 01:17 100 H 164/84 H O2 Del Method O2 Flow Rate 07/22/23 07:32 Nasal Cannula 3 07/22/23 03:40 Nasal Cannula 3 07/22/23 01:47 07/22/23 01:17 (3) Community acquired pneumonia Laterality: left Lung location: upper lobe of lung Qualified Code(s): J18.9 - Pneumonia, unspecified organism
--- NOTE | 2023-07-22 11:36 | XRay Report ---
XR chest 1V portable CLINICAL HISTORY: increased oxygen requirement TECHNIQUE: Single frontal radiograph of the chest was obtained. Comparison: Comparison is made to chest radiograph 07/21/2023 FINDINGS: No lines and tubes are seen. Left-sided airspace opacity is unchanged from prior exam. No evidence of pleural effusion or pneumothorax. IMPRESSION: Left airspace opacity is unchanged, compatible with pneumonia. ACT 112: Negative or not required by law. Electronically signed by: Matthew Simental M.D. 07/22/2023 11:34 AM
--- NOTE | 2023-07-22 12:00 | Pulmonary Consultation ---
Date of Consultation July 22, 2023 Assessment & Plan (1) Community acquired pneumonia: Patient has a significant left lung infiltrate and evidence of community- acquired pneumonia. She is immunocompromised and appropriately covered for Pseudomonas and anaerobic organisms with Zosyn. We will check MRSA screen to consider the addition of vancomycin. We will check urine Legionella. Patient at risk for Legionella pneumonia given immunosuppression and hyponatremia. I will empirically add azithromycin. QTc 435 ms on admission. Discontinue doxycycline. Discontinue hydroxychloroquine. Hold all immunosuppressants. Start percussive vest therapy 4 times daily, hypertonic saline twice daily and continue beta agonist neb therapy every 4 hours. No role for prednisone at this time as the patient is not bronchospastic. Laterality: left Lung location: upper lobe of lung Qualified Code(s): J18.9 - Pneumonia, unspecified organism (2) Acute respiratory failure with hypoxia: Continue to wean oxygen to maintain saturations above 90%. (3) Immunocompromised state: Hold immunosuppressants at this time. Plan Thank you for the consult. Pulmonary medicine will continue to follow with you. History of Present Illness Reason for Consultation: Hypoxic respiratory failure Attending Physician: Cookie Calderon MD History of Present Illness 58-year-old female with a past medical history of COPD, tobacco abuse, anxiety and rheumatoid arthritis on chronic immunosuppressive medications presenting to the pulmonary clinic due to shortness of breath and cough. Patient notes occasional brown sputum and increased shortness of breath. She was encephalopathic yesterday likely due to combination of benzodiazepines and op iates. She is more awake and alert today, but anxious. She denies any chest pain. She does endorse shortness of breath and occasionally has to tripod in order to catch her breath. She denies any overt fevers, chills or night sweats. She denies use of oxygen at home. She notes that she has been on inhalers for many years. She smokes approximately 1 pack of cigarettes a day for the past 40 years. Hospitalist service ordered a perfusion scan overnight which revealed moderate to high probability PE. She had a CT scan on admission with contrast which revealed extensive consolidation in the lingula concerning for pneumonia. Severe emphysema noted. Chest x-ray completed yesterday revealed a left airspace opacity which was unchanged. Repeat chest x-ray today reveals progressive consolidation in the left lung. Allergies Allergy/AdvReac Type Severity Reaction Status Date / Time Iodinated Contrast Media Allergy Severe Anaphylaxis Verified 07/22/23 00:54 nickel Allergy Mild Rash Verified 07/20/23 19:11 Home Medications Medication Instructions Recorded Confirmed Type albuterol sulfate 2.5 mg/3 mL 2.5 mg inhalation DIRECTED PRN 07/20/23 07/20/23 History (0.083 %) solution for nebulization Shortness Of Breath Or Wheezing albuterol sulfate 90 mcg/actuation 2 puff inhalation Q4H PRN 07/20/23 07/20/23 History aerosol inhaler (Ventolin HFA) COUGH/SHORT OF BREATH/WHEEZING bupropion HCl 200 mg tablet,12 hr 200 mg PO BID 07/20/23 07/20/23 History sustained-release diltiazem HCl 240 mg 240 mg PO QAM 07/20/23 07/20/23 History capsule,extended release 24 hr escitalopram oxalate 10 mg tablet 15 mg PO QAM 07/20/23 07/20/23 History fexofenadine 180 mg tablet 180 mg PO DAILY 07/20/23 07/20/23 History fluticasone fur. 100 mcg-umeclid 1 inh inhalation DAILY 07/20/23 07/20/23 History 62.5 mcg-vilant 25 mcg inhalat.powder (Trelegy Ellipta) folic acid 1 mg tablet 3 mg PO DAILY 07/20/23 07/20/23 History hydroxychloroquine 200 mg tablet 300 mg PO HS 07/20/23 07/20/23 History leflunomide 10 mg tablet 10 mg PO QAM 07/20/23 07/20/23 History losartan 100 mg tablet 100 mg PO QAM 07/20/23 07/20/23 History metoprolol succinate 25 mg 25 mg PO DAILY 07/20/23 07/20/23 History tablet,extended release 24 hr naproxen sodium 220 mg tablet 440 mg PO Q12H PRN Pain 07/20/23 07/20/23 History omeprazole 20 mg capsule,delayed 20 mg PO DAILYBB 07/20/23 07/20/23 History release potassium chloride 10 mEq 10 meq PO QAM 07/20/23 07/20/23 History tablet,extended release(part/cryst) (Klor-Con M) psyllium 1 tbsp PO DAILY PRN Constipation 07/20/23 07/20/23 History upadacitinib 15 mg tablet,extended 15 mg PO QAM 07/20/23 07/20/23 History release 24 hr (Rinvoq) Patient History Medical History (Updated 07/22/23 @ 11:58 by Juancarlos Moody MD) Acute respiratory failure with hypoxia Mood disorder HTN (hypertension) COPD (chronic obstructive pulmonary disease) Tobacco abuse Rheumatoid arthritis Surgical History (Updated 07/21/23 @ 10:39 by Tamra Osorio MD, PhD) H/O tubal ligation Family History (Updated 07/21/23 @ 10:39 by Tamra Osorio MD, PhD) Other Asthma Breast cancer COPD (chronic obstructive pulmonary disease) Social History Smoking Status: Current every day smoker Tobacco Type: Cigarettes Second Hand Exposure: No; Do You Dip or Chew Tobacco: No; Hx Alcohol Use: Yes Alcohol type: hard liquor Hx Substance Use: No Preferred Language: [place] Communication Ability: Effective Office Support Specialist Required: No Beliefs That Will Affect Care: None Current Living Situation: Spouse Feels Safe at Home: Yes Safety Concerns: Feels Safe At This Time Assistive Devices: None Review of Systems Review of Systems: All systems reviewed & are unremarkable except as noted in HPI & below Physical Exam Physical Exam: Constitutional: Patient appears to be of their stated age. Patient is in no apparent distress. Patient is well-developed. Eyes: Pupils are equal round and reactive to light. Conjunctivae are normal. Anicteric sclera. Ears nose, mouth and throat: Mallampati class 2. Normal posterior oropharynx. Uvula is midline. Neck: Trachea is midline. Visual inspection is normal. Respiratory: Coarse rhonchi with crackles noted in the left mid lung zones. Mild tripoding and increased work of breathing. Cardiovascular: Regular rate and rhythm. No murmurs. No edema. Gastrointestinal: Normal bowel sounds, soft, nontender and nondistended. No hepatosplenomegaly noted. Musculoskeletal: No cyanosis. Patient is able to move all extremities. Strength is 5 out of 5 in the upper and lower extremities. Skin: No rashes, warm dry and intact. Neurologic: No obvious focal neurological deficits seen. Psychiatric: Alert and oriented x3 with a euthymic affect. Results & Data Results & Data Vital Signs (Past 12 Hours) Vital Signs Temp Pulse Pulse Resp BP BP Pulse Ox 07/22/23 11:45 36.9 C 106 H 32 H 152/85 H 93 07/22/23 10:49 100 H 18 95 07/22/23 08:30 07/22/23 07:32 88 18 93 07/22/23 03:40 36.7 C 81 18 140/86 92 07/22/23 01:47 95 H 07/22/23 01:17 100 H 164/84 H O2 Del Method O2 Flow Rate 07/22/23 11:45 Nasal Cannula 4 07/22/23 10:49 Oxymask 5 07/22/23 08:30 Nasal Cannula 3 07/22/23 07:32 Nasal Cannula 3 07/22/23 03:40 Nasal Cannula 3 07/22/23 01:47 07/22/23 01:17 PG Care Time/CCT Total # of Minutes Spent Total Time Spent with Patient: Total time spent is greater than 50% in coordination of care (as documented) at patient's floor/unit and/or counseling patient: Coding Level of Care Code 26926 IN/OBS CONSULT LVL 5,80M Diagnoses Community acquired pneumonia of left upper lobe of lung J18.9 Laterality: left Lung location: upper lobe of lung Acute respiratory failure with hypoxia J96.01 Immunocompromised state D84.9
[2023-07-22] MEDS ORDERED: KETOROLAC TROMETHAMINE 15 MG/ML VIAL IV ONE (12:14)
[2023-07-22 12:23] LABS: Partial Thromboplastin Ratio 1.1; Partial Thromboplastin Time 30.8 Seconds (21.0-31.0)
[2023-07-22] MEDS ORDERED: AZITHROMYCIN 500 MG in DEXTROSE 5% 250 ML IV ONE (12:45)
[2023-07-22] MEDS ORDERED: POTASSIUM CHLORIDE CRTAB 20 MEQ TABCR PO STA (13:06)
[2023-07-22] MEDS ORDERED: SODIUM PHOSPHATE 3 MMOL/1 ML INFUSION IV STA (13:07)
[2023-07-22] MEDS ORDERED: SODIUM PHOSPHATE 24 MMOL in SODIUM CHLORIDE 0.9% 500 ML IV ONE (13:30)
[2023-07-22] MEDS ORDERED: GABAPENTIN 600 MG TAB PO SCH (14:00)
[2023-07-22] MEDS ORDERED: HEPARIN IV BOLUS 2,000 UNITS in SYRINGE 0 ML IV ONE (14:12)
[2023-07-22] MEDS: CALCIUM CITRATE 950 MG TAB PO SCH (18:01)
[2023-07-22] MEDS ORDERED: KETOROLAC TROMETHAMINE 15 MG/ML VIAL IV PRN (18:30)
[2023-07-22] MEDS: SODIUM CHLOR 7% 4 ML NEB NEB SCH (19:44)
[2023-07-22] MEDS: NICOTINE 14 MG/24 HR PATCH TD SCH (20:28)
[2023-07-22] MEDS ORDERED: ACETAMINOPHEN W/CODEINE #3 1 TAB PO ONE (20:48)
[2023-07-22 21:22] LABS: Partial Thromboplastin Ratio 1.3
[2023-07-22] MEDS: HEPARIN SODIUM/DEXTROSE 25,000 UNITS/500 ML BAG IV SCH (22:06)
[2023-07-23] MEDS ORDERED: LEVALBUTEROL 1.25 MG/3 ML NEB NEB STA (03:05)
[2023-07-23] MEDS ORDERED: XOPENEX/ATROVENT 1.25mg/0.5MG NEB COMBO NEB STA (03:05)
[2023-07-23] MEDS ORDERED: IPRATROPIUM BROMIDE NEB SOLN 0.02% 2.5 ML VIAL INH STA (03:05)
--- NOTE | 2023-07-23 03:39 | CT Scan Report ---
Exam(s): CT L SPINE EXAM: CT Lumbar Spine Without Intravenous Contrast CLINICAL HISTORY: Reason for exam: back pain, heparin. TECHNIQUE: Axial computed tomography images of the lumbar spine without intravenous contrast. CTDI is 39.22 mGy and DLP is 927.68 mGy-cm. Automated exposure control was utilized for the study. A dose lowering technique was utilized adhering to the principles of ALARA. COMPARISON: No relevant prior studies available. FINDINGS: Vertebrae: No acute fracture. Maintenance of height of the vertebral bodies. No spondylolisthesis. Bone mineralization within normal limits. Discs/spinal canal/neural foramina: Mild posterior disc bulges L3-4 and L4-5 with mild predominant central canal stenosis. Limited evaluation of the spinal canal contents Soft tissues: No paraspinal soft tissue swelling. Partially visualized small left pleural effusion. Atherosclerotic vascular calcifications. IMPRESSION: Relatively mild degenerative changes. Limited examination of the spinal canal contents for evaluation of intraspinal hematoma or collection. Recommend correlation with MRI when clinically appropriate. Electronically signed by: Mauro Angel M.D. 07/23/23 03:37 AM
[2023-07-23] MEDS: PIPERACILLIN/TAZOBACTAM 4.5 GM in DEXTROSE 5% MINI-B 100 ML IV SCH ×3 (04:06→19:46)
[2023-07-23] MEDS: PANTOprazole 40 MG TAB PO SCH (06:07)
[2023-07-23 06:14] LABS: Magnesium 1.8 mg/dl (1.7-2.4)
--- NOTE | 2023-07-23 06:26 | Communication Note ---
Date of Service: July 22, 2023 Late entry 07/22, 820P Patient complaining of back pain unrelieved by Tylenol as per RN. Hg 10.4 AP Back pain Ongoing IV heparin infusion for possible PE Anemia on a.m. blood work Thrombocytopenia Hold heparin for now CT lumbar spine CT lumbar spine Relatively mild degenerative changes. Limited examination of the spinal canal contents for evaluation of intraspinal hematoma or collection. Recommend correlation with MRI when clinically appropriate. No retroperitoneal hematoma is identified in the limited field of view on the current study. Recommend a CT of the abdomen and pelvis to rule out a retroperitoneal hematoma. Continue to hold heparin until CT abdomen pelvis resulted.
[2023-07-23 06:33] LABS: Basophils # (auto) 0.02 K/uL (0.00-0.20); Basophils % (auto) 0.4 %; Echinocytes 1+; Eosinophils # (auto) 0.01 K/uL (0.00-0.50); Eosinophils % (auto) 0.2 %; Hematocrit (blood only) 32.9 % (37.0-47.0); Hemoglobin 11.3 g/dl (12.0-16.0); Immature Granulocytes # (auto) 0.03 K/uL (0.01-0.20); Immature Granulocytes % (auto) 0.6 %; Lymphocytes # (auto) 0.09 K/uL (1.20-3.40); Lymphocytes % (auto) 1.7 %; Mean Corpuscular Hemoglobin 33.1 pg (25.0-34.0); Mean Corpuscular Hgb Conc 34.3 g/dL (32.0-36.0); Mean Corpuscular Volume 96.5 fL (80.0-100.0); Mean Platelet Volume 11.6 fL (9.4-12.4); Monocytes # (auto) 0.06 K/uL (0.11-0.59); Monocytes % (auto) 1.1 %; Neutrophils # (auto) 5.14 K/uL (1.40-6.50); Platelet Count 98 K/uL (130-400); Platelet Estimate Decreased (Normal); RDW Coefficient of Variation 13.6 % (11.5-14.5); RDW Standard Deviation 48.8 fL (36.4-46.3); Red Blood Count 3.41 M/uL (4.20-5.40); Toxic Granulation 1+; Toxic Vacuolation 1+; White Blood Count 5.35 K/ul (4.8-10.8)
--- NOTE | 2023-07-23 06:51 | CT Scan Report ---
ABDOMEN AND PELVIS CT WITHOUT CONTRAST CT DOSE: 744.69 mGy.cm HISTORY: back pain, heparin; ro retroperitoneal bleed TECHNIQUE: Multiaxial CT images of the abdomen and pelvis were performed without contrast. A dose lo wering technique was utilized adhering to the principles of ALARA. COMPARISON STUDY: Lumbar spine CT 07/23/2023. Chest CT 07/20/2023. FINDINGS: Emphysema again noted. Dense consolidation within the lingula and left lower lobe has progr essed. This likely represents a pneumonia. There is a small left pleural effusion which is also progr essed. No pneumoperitoneum. No pneumatosis. No acute fractures identified. The unenhanced liver, gall bladder, pancreas, spleen, and adrenal glands are unremarkable. Moderate bilateral perinephric edema. Kidneys appear mildly enlarged. There is a 2 mm stone either within or just beyond the right uretero vesical junction best seen on image 280. However, there is no right-sided hydronephrosis. No renal st ones identified. No retroperitoneal hematoma or lymphadenopathy. No pelvic lymphadenopathy or pelvic free fluid. No bladder wall thickening. The uterus and bilateral adnexa are unremarkable. Trace pelvi c free fluid. This may be physiologic. Suboptimal evaluation for bowel pathology due to the lack of i ntravenous and oral contrast. However, there is no definite bowel wall thickening or obstruction. Col onic diverticulosis. No evidence for acute diverticulitis. Fluid-filled nondilated loops of large and small bowel seen throughout the abdomen. This may represent a diarrheal illness/gastroenteritis. Nor mal appendix. No evidence for a bowel obstruction. IMPRESSION: 1. Dense consolidation within the left lung base with a small left pleural effusion. This has progres sed in the interval and likely represents a pneumonia. 2. There is a 2 mm stone either within or just beyond the right ureterovesical junction. No hydroneph rosis. 3. Moderate bilateral perinephric edema. The kidneys appear enlarged. Recommend correlation with [place] l function studies to assess for underlying acute renal failure. 4. Fluid-filled nondilated loops of large and small bowel. This may represent a gastroenteritis/diarr heal illness. 5. Additional findings as described above. ACT 112: Negative or not required by law. Electronically signed by: Lito Dias M.D. 07/23/2023 6:49 AM
[2023-07-23] MEDS ORDERED: Heparin IV Adult Wt-Based Low-Dose *NO* INITIAL Bolus Protocol IV STA (06:56)
[2023-07-23 07:00] LABS: Partial Thromboplastin Time 28.4 Seconds (21.0-31.0)
[2023-07-23] MEDS ORDERED: HEPARIN SODIUM/DEXTROSE 25,000 UNITS/500 ML BAG IV SCH (07:15)
[2023-07-23] MEDS: LEVALBUTEROL 1.25 MG/3 ML NEB NEB SCH ×4 (07:16→19:48)
[2023-07-23] MEDS: SODIUM CHLOR 7% 4 ML NEB NEB SCH ×2 (07:17→19:48)
[2023-07-23] MEDS: IPRATROPIUM BROMIDE NEB SOLN 0.02% 2.5 ML VIAL INH SCH ×4 (07:17→19:48)
[2023-07-23] MEDS: HEPARIN SODIUM/DEXTROSE 25,000 UNITS/500 ML BAG IV SCH (07:40)
[2023-07-23] MEDS ORDERED: SODIUM PHOSPHATE 3 MMOL/1 ML INFUSION IV STA (08:44)
[2023-07-23] MEDS ORDERED: STAT IV/IM STA (08:47)
[2023-07-23] MEDS: dilTIAZem HCL 240 MG CAPCR PO SCH (08:48)
[2023-07-23] MEDS: FLUTICASONE FUROATE 100MCG 14 PUFFS/INHALER INH SCH (08:48)
[2023-07-23] MEDS: ACETAMINOPHEN W/CODEINE #3 1 TAB PO PRN (08:48)
[2023-07-23] MEDS: UMECLIDINIUM/VILANTEROL 62.5/25MCG 7 PUFFS/INHALER INH SCH (08:49)
[2023-07-23] MEDS: FOLIC ACID 1 MG TAB PO SCH (08:50)
[2023-07-23] MEDS: METOPROLOL SUCC 25MG EXT REL TAB PO SCH (08:50)
[2023-07-23] MEDS: THIAMINE HCL 100 MG TAB PO SCH (08:51)
[2023-07-23] MEDS: FEXOFENADINE HCL 180 MG TAB PO SCH (08:51)
[2023-07-23] MEDS: MULTIVITAMIN TAB PO SCH (08:51)
[2023-07-23] MEDS: CALCIUM CITRATE 950 MG TAB PO SCH ×3 (08:52→17:50)
[2023-07-23] MEDS ORDERED: SODIUM PHOSPHATE 24 MMOL in SODIUM CHLORIDE 0.9% 500 ML IV ONE (09:15)
[2023-07-23 09:21] LABS: Albumin Level 2.8 gm/dl (3.4-5.0); Bilirubin,Total 0.7 mg/dl (0.2-1.0); Potassium 3.4 mmol/L (3.5-5.1)
[2023-07-23 09:27] LABS: BUN Creatinine Ratio 17.3 (10-20); Creatinine Clr Calc Pharmacy 73.3 ml/min; Est GFR (African American) 101.8 ml/min; Est GFR (Non-African American) 87.9 ml/min; Globulin 2.7 gm/dl (2.5-4.0); Total Protein 5.5 gm/dl (6.0-8.3)
[2023-07-23] MEDS: CALCIUM GLUCONATE 10% 1,000 MG in SODIUM CHLOR 0.9% MINI-B 50 ML IV SCH ×2 (10:01→10:19)
--- NOTE | 2023-07-23 10:33 | Ultrasound Report ---
US renal/blad retro comp CLINICAL HISTORY: abd/pelvis CT f/u TECHNIQUE: Multiple sonographic real-time images of the kidneys and bladder were obtained. COMPARISON: Comparison is made to CT abdomen pelvis 07/23/2023 FINDINGS: The right kidney measures 11.3 cm in length, and the left kidney measures 12.2 cm in length. The right kidney is normal in size, contour, cortical thickness, and echogenicity. No hydronephrosis is identified. No renal lesion is identified. The left kidney is normal in size, contour, cortical thickness and echogenicity. No hydronephrosis i s identified. No renal lesion is identified. The bladder is partially distended. Bilateral jets are seen. IMPRESSION: Unremarkable examination and in particular no evidence of hydronephrosis. ACT 112: Negative or not required by law. Electronically signed by: Matthew Simental M.D. 07/23/2023 10:32 AM
[2023-07-23] MEDS ORDERED: FUROSEMIDE INJ 20 MG/2 ML VIAL IV SCH (10:45)
[2023-07-23] MEDS ORDERED: Heparin IV Adult Wt-Based Low-Dose *NO* INITIAL Bolus Protocol IV ONE (10:45)
--- NOTE | 2023-07-23 10:49 | Nephrology Progress Note ---
Date of Service July 23, 2023 Assessment & Plan Admission and Anticipated Discharge Date Admission Date: July 20, 2023 Subjective Subjective Assessment & Plan (1) Hyponatremia: Na initially improved and then dropped to 124 again. NS restarted and then went to 126. continue to avoid nsaids, to hold losartan and bupropion -- can have a role in hyponatremia as can chronic or acute lung diseases continue K rich NS at low rate for now 50ml/hr On Liquid diet which will make it hard to raise Na+. Given the change in Serum Na+ it is not a case of pure Hypovolemic Hyponatremia--There is a big part of SIADH. So We will do NS @ 50/hr fpr solute and Volume and lasix 20 iv bid to lower urine Osm to raise Serum NA+. with kcl 20 bid. Check BMP twice daily. S-feels weak. On liquid and jello diet. Not eating much. na not much better even after NS started Physical Exam Constitutional: lethargic and weak. Sleepy. eyes close + dry oral mucous membranes Neck: Supple no jvd Respiratory: + tachypneic and + prolonged expiratory phase Auscultation: + diminished lung sounds and + rhonchi Cardiovascular: RRR, no murmur, no edema Gastrointestinal (Abdomen): Inspection/Auscultation: normal bowel sounds Percussion/Palpation: abdomen soft; abdomen nontender Musculoskeletal: Extremities: strength 5/5 throughout Skin: no rashes, warm and dry Neurologic: Marked generalized weakness answers 1 yes or no question and falls asleep again Results & Data Vital Signs (Past 12 Hours) Vital Signs Temp Pulse Pulse Resp BP Pulse Ox O2 Del Method 07/23/23 07:58 37.3 C 98 H 16 146/78 H 93 Nasal Cannula 07/23/23 07:17 135 H 22 94 Nasal Cannula 07/23/23 05:59 107 H 07/23/23 04:02 101 H 18 93 Nasal Cannula 07/23/23 03:20 36.8 C 103 H 20 141/85 H 93 Nasal Cannula 07/22/23 22:55 36.9 C 87 20 103/68 92 Nasal Cannula O2 Flow Rate 07/23/23 07:58 5 07/23/23 07:17 5 07/23/23 05:59 07/23/23 04:02 5 07/23/23 03:20 4 07/22/23 22:55 4
--- NOTE | 2023-07-23 11:13 | Pulmonology Progress Note ---
Date of Service July 23, 2023 Assessment & Plan (1) Community acquired pneumonia: Laterality: left Lung location: upper lobe of lung Qualified Code(s): J18.9 - Pneumonia, unspecified organism (2) Pulmonary embolism: (3) Acute respiratory failure with hypoxia: (4) COPD (chronic obstructive pulmonary disease): (5) Immunocompromised state: Plan IMPRESSION: 58-year-old female with a significant past medical history of rheumatoid arthritis and COPD who was admitted for acute hypoxic respiratory failure in the setting of community-acquired pneumonia with work-up findings consistent with pulmonary embolism currently anticoagulated on heparin. RECOMMENDATIONS: 1. Community-acquired pneumonia - Unfortunately, the patient is immunocompromised in the setting of treatment for her rheumatoid arthritis. Chest x-ray findings consistent with likely bacterial pneumonia process in the LEFT lower lobe. Continue with broad-spectrum antibiotic coverage and ps eudomonal coverage in the setting of immunocompromise patient with slight improvement at this time. MRSA nasal swab negative making MRSA infection less likely. She will continue with the azithromycin to empirically treat Legionella well results pending. Continue to withhold immunosuppressants at this time. She is doing well with hypertonic saline nebulizers. She is using her chest vest with improvement of sputum production as well. Patient remains without bronchospasm on exam today. No utility in steroids at this point. 2. Pulmonary embolism - Perfusion studies concerning for likely underlying pulmonary emboli which certainly could be resulting in a degree of the patient's hypoxia. She is currently anticoagulated on heparin. Can likely transition the patient to oral DOAC during admission. Echocardiogram assessed is relatively normal in regard to the RIGHT-sided heart function. Would recommend initiating DOAC therapy at some point in the during this hospitalization with plan for at least 3 months of therapy, however lifelong anticoagulated could be argued in a patient without history implying significant provocation. No need for follow-up imaging or echocardiogram in the outpatient setting from a PE evaluation otherwise. 3. Acute respiratory failure with hypoxia - Multifactorial in the patient with underlying COPD, new LEFT lower lobe infiltrate, and findings of pulmonary emboli. Continue with supplemental oxygen to maintain saturation greater than 90%. Wean down as tolerated. 4. COPD - Currently treated with Trelegy and albuterol in the outpatient [facility]. She is managed by her primary care provider in the outpatient setting. Will require follow-up in the outpatient setting with her primary service at the time of discharge. Thank you for allowing us to participate in the care of this patient. Pulmonary medicine will continue to follow along. Admission and Anticipated Discharge Date Admission Date: July 20, 2023 Subjective Patient seen and evaluated at bedside. She reports that she is having complaints of pain in her extremities and back. She states that her breathing has essentially plateaued. She offers no complaints of chest pain, palpitations, or presyncope. She reports a cough that is productive of reddish sputum at times. She continues to use her chest vest with improved sputum production. Review of Systems Review of Systems: A complete 10 point review of systems was reviewed with the patient with pertinent positives and negatives as per history of present illness. All else were negative. Physical Exam Physical Exam: VITAL SIGNS - Vital signs and nursing notes were reviewed. GENERAL - 58-year-old female appearing her stated age who is in no acute distress. Communicates well with provider and answers questions appropriately. LUNGS - Chest wall evaluation demonstrates normal chest wall A:P diameter. Auscultation reveals diminished breath sounds at the LEFT-sided lung base. No wheezes, rales, or rhonchi appreciated. CARDIAC - RRR with S1/S2. No murmur, rubs, or gallops appreciated. PSYCH - A&Ox3 and cooperates fully with examiner. Pt is very pleasant and interacts well with examiner. Results & Data Results & Data Vital Signs (Past 12 Hours) Vital Signs Temp Pulse Pulse Resp BP Pulse Ox O2 Del Method 07/23/23 07:58 37.3 C 98 H 16 146/78 H 93 Nasal Cannula 07/23/23 07:17 135 H 22 94 Nasal Cannula 07/23/23 05:59 107 H 07/23/23 04:02 101 H 18 93 Nasal Cannula 07/23/23 03:20 36.8 C 103 H 20 141/85 H 93 Nasal Cannula O2 Flow Rate 07/23/23 07:58 5 07/23/23 07:17 5 07/23/23 05:59 07/23/23 04:02 5 07/23/23 03:20 4 PG Care Time/CCT Total # of Minutes Spent Total Time Spent with Patient: Total time spent is greater than 50% in coordination of care (as documented) at patient's floor/unit and/or counseling patient: Coding Level of Care Code 84380 SUB INP/OBS CARE 2/35MIN Diagnoses Community acquired pneumonia of left upper lobe of lung J18.9 Laterality: left Lung location: upper lobe of lung Pulmonary embolism I26.99 Acute respiratory failure with hypoxia J96.01 COPD (chronic obstructive pulmonary disease) J44.9 Immunocompromised state D84.9
[2023-07-23] MEDS: POTASSIUM CHLORIDE CRTAB 20 MEQ TABCR PO SCH ×2 (11:33→20:51)
[2023-07-23] MEDS: AZITHROMYCIN 250 MG in DEXTROSE 5% 250 ML IV SCH (11:33)
[2023-07-23 12:51] LABS: ANTI-Xa, UFH(UnfractionatedHep 0.28 IU/ML (0.3-0.7)
--- NOTE | 2023-07-23 13:21 | Hospitalist Progress Note ---
Date of Service July 23, 2023 Assessment & Plan (1) Severe sepsis: (2) Sepsis: (3) Community acquired pneumonia: (4) Hyponatremia: (5) COPD exacerbation: (6) Encephalopathy: (7) Immunocompromised state: (8) Elevated troponin: (9) Abnormal liver enzymes: (10) Prediabetes: (11) Anxiety: Plan Pt is a 58yoF with PMHx significant for hypertension, PSVT, COPD, RA on immunosuppressive regimen, NAFLD, ADD/anxiety/mood disorder, cervical dysplasia, erythema nodosum, ongoing tobacco abuse admitted with sepsis in the setting of of pneumonia. Sepsis COPD exacerbation Pneumonia Pt with SOB from home WBC elevated at 14.68 on admission, has since become normal Chest xray concerning for pneumonia with opacities noted on the left CT chest with lingula consolidation- follow up CT chest recommended in 1-2 months to ensure resolution V/Q scan with indeterminate to high suspicion for PE- continue heparin at this time Sputum Cx with NGTD Blood Cx x 2 with NGTD Biofire negative, UA not suggestive of infection Pt immunocompromised Originally on Rocephin and doxycycline, broadened to Zosyn, switched doxy to azithromycin Continue scheduled nebs oxygen supplementation as needed, pt now with occasional increased oxygen need Pulmonology consult placed, appreciate recs -MRSA Screen negative -Legionella pending -continue Zosyn, switch doxy to azithromycin -discontinue steroids -Hold all immunosuppressants -Start percussive vest therapy 4 times daily -start hypertonic saline twice daily -continue nebs QID -wean oxygen as tolerated with goal above 90% Continue to monitor Encephalopathy Possibly secondary to sepsis SIRS plus encephalopathy Head CT with no acute changes VBG on admission with low CO2 Hyponatremic, sodium 127 on admission- could be contributory Tox profile ordered for completion and to rule out a toxic cause Brain MRI unremarkable Consider Neurology consult if symptoms do not improve- pt more alert today Minimize use of narcotics for pain, receiving Ativan per AWSS protocol Hyponatremia Sodium 127 on admission Home bupropion possible contributory Hyponatremic workup, careful correction of sodium nephrology consult- appreciate recs On fluids per nephro RA Immunocompromised status hx rheumatoid arthritis on immunosuppressive regimen Hold Arava and Rinvoq RA medications for now until patient recovers from infection Hold hydroxychloroquine Elevated Troponins hs-Trop elevated at 17.6 to 28.5 to 26.3 EKG with sinus tach Echo ordered with no acute changes Likely elevation of trop due to demand Livedo Reticularis Pt's with picture of rash Reticular pattern on lower extremities, states it comes and goes Was not present on lower extremities at time of exam today Associated with hypercoaguable states, vasculitis D-dimer ordered and elevated -lower extremity doppler with no DVT -V/Q scan with indeterminate to high suspicion for PE- continue heparin at this time Hypertension hx PSVT Continue home metoprolol and Diltiazem Hold home losartan Continue to monitor Abnormal LFTs Hx NAFLD Possible alcoholic hepatitis Concern for alcohol abuse as per outpatient [facility] cardiology documentation last month Pt with episode on 07/21 noting she is anxious, having a headache, given one time dose of Ativan 0.5mg Concern for active withdrawal at this time AWSS at risk protocol switched to active protocol with Ativan, consider addition of gabapentin in the setting of encephalopathy DT precautions Continue to monitor for signs of alcohol withdrawal ADD/anxiety/mood disorder Home bupropion on hold in setting of hyponatremia and encephalopathy Holding home lexapro Hyperglycemia Hgba1c of 5.7 indicating prediabetes Monitor Ongoing tobacco abuse Nicotine patch Encourage cessation Diet: Clear liquid DVT prophylaxis: Lovenox subcu Full code Dispo: PT/OT ordered Admission and Anticipated Discharge Date Admission Date: July 20, 2023 Subjective pt seen multiple times during the day. Originally in the AM, sitting up in bed with at bedside. Stated that she was feeling better. Later in the evening about 5:30pm notified that pt was stating that she was SOB tripoding. However saturating >90% on 5L NC Review of Systems Review of Systems: All systems reviewed & are unremarkable except as noted in Subjective Physical Exam Physical Exam: General: Alert, some mild distress with breathing Skin: Reticular rash noted on lower extremities Psych: Appropriate mood and affect Neuro: difficulty with movement in the bed HEENT: NC/AT CV: RRR Resp: Breath sounds with wheezing bilaterally, some increased effort of breathing. Abdomen: Soft, nontender, nondistended. Extremities: No edema in lower extremities bilaterally. Results & Data Results & Data Vital Signs (Past 12 Hours) Vital Signs Temp Pulse Pulse Resp BP Pulse Ox O2 Del Method 07/23/23 11:44 37.0 C 102 H 16 143/88 H 97 Nasal Cannula 07/23/23 07:58 37.3 C 98 H 16 146/78 H 93 Nasal Cannula 07/23/23 07:19 Nasal Cannula 07/23/23 07:17 135 H 22 94 Nasal Cannula 07/23/23 05:59 107 H 07/23/23 04:02 101 H 18 93 Nasal Cannula 07/23/23 03:20 36.8 C 103 H 20 141/85 H 93 Nasal Cannula O2 Flow Rate 07/23/23 11:44 5 07/23/23 07:58 5 07/23/23 07:19 5 07/23/23 07:17 5 07/23/23 05:59 07/23/23 04:02 5 07/23/23 03:20 4 (3) Community acquired pneumonia Laterality: left Lung location: upper lobe of lung Qualified Code(s): J18.9 - Pneumonia, unspecified organism
[2023-07-23] MEDS ORDERED: GABAPENTIN 600 MG TAB PO SCH (18:00)
[2023-07-23] MEDS ORDERED: methylPREDNISolone 40 MG in SYRINGE 0 ML IV STA (18:42)
[2023-07-23] MEDS ORDERED: methylPREDNISolone 40 MG in SYRINGE 0 ML IV ONE (19:45)
--- NOTE | 2023-07-23 19:45 | Communication Note ---
Date of Service: July 23, 2023 Patient transferred to PCU due to worsening alcohol withdrawal and respiratory distress.
--- NOTE | 2023-07-23 19:57 | XRay Report ---
SINGLE VIEW CHEST CLINICAL HISTORY: Dyspnea. FINDINGS: 2 AP, portable, semierect chest radiographs are compared to study dated 07/22/2023. Correlat ion is made with chest CT dated 07/20/2023. The examination is degraded by portable technique and messi ent rotation. The patient's head obscures the apices. The heart is enlarged. The pulmonary vasculatur e is noncongested. Emphysema and chronic interstitial thickening is similar to previous. An accessory azygos fissure is incidentally noted. Dense airspace consolidation in the left mid to lower lung wit h a left pleural effusion is similar to yesterday. Right lung appears clear noting basilar atelectasi s. No pneumothorax is seen. The bony thorax is grossly intact. IMPRESSION: 1. Dense airspace consolidation in left mid to lower lung with a small left pleural effusion is uncha nged from yesterday. 2. Cardiomegaly and emphysema. . ACT 112: Negative or not required by law. Electronically signed by: Jake Dobbs M.D. 07/23/2023 7:56 PM
[2023-07-23] MEDS ORDERED: OLANZapine 10 MG/2.1 ML SDV IM SCH (20:00)
[2023-07-23] MEDS ORDERED: METOPROLOL TARTRATE 1 MG/ML VIAL IV STA (20:08)
[2023-07-23] MEDS: FUROSEMIDE INJ 20 MG/2 ML VIAL IV SCH (20:24)
[2023-07-23] MEDS: POTASSIUM CHLORIDE / WTR 10 MEQ/100 ML PLCT IV SCH ×3 (20:31→23:23)
[2023-07-23] MEDS: MAGNESIUM SULFATE / D5W 1 GM/100 ML BAG IV SCH ×2 (20:32→22:39)
[2023-07-23 20:44] LABS: ANTI-Xa, UFH(UnfractionatedHep 0.33 IU/ML (0.3-0.7)
[2023-07-23 20:59] LABS: Base Excess ABG -1.5 mEq/L (-9-1.8); HCO3 ABG 21 mmol/L (19-24); Oxygen Saturation ABG 96.3 % (90-95); PCO2 ABG 29 mmHg (35-46); PO2 ABG 72 mmHg (80-95); pH ABG 7.47 (7.35-7.45)
[2023-07-23 21:01] LABS: Allen Test Pos (Pos)
[2023-07-23] MEDS: NICOTINE 14 MG/24 HR PATCH TD SCH (21:55)
[2023-07-23] MEDS ORDERED: ACETAMINOPHEN 1,000 MG/100 ML VIAL IV STA (22:15)
[2023-07-23] MEDS ORDERED: GABAPENTIN 1200MG ALCOHOL WITHDRAWAL LOAD PO STA (23:09)
[2023-07-23] MEDS ORDERED: GABAPENTIN 600 MG TAB PO ONE (23:09)
[2023-07-24 00:05] LABS: BUN Creatinine Ratio 15.7 (10-20); Calcium 7.8 mg/dl (8.6-10.3); Creatinine Clr Calc Pharmacy 78.6 ml/min; Est GFR (African American) 110.7 ml/min; Est GFR (Non-African American) 95.5 ml/min; Potassium 3.2 mmol/L (3.5-5.1)
[2023-07-24] MEDS: POTASSIUM CHLORIDE / WTR 10 MEQ/100 ML PLCT IV SCH ×9 (00:24→18:12)
[2023-07-24] MEDS ORDERED: ALBUMIN 25% 25 GM/100 ML VIAL IV ONE (00:54)
[2023-07-24] MEDS ORDERED: GABAPENTIN 800MG ALCOHOL WITHDRAWAL LOAD PO STA (02:11)
[2023-07-24] MEDS ORDERED: GABAPENTIN 400 MG CAP PO ONE (02:30)
[2023-07-24 02:46] LABS: ANTI-Xa, UFH(UnfractionatedHep 0.33 IU/ML (0.3-0.7)
[2023-07-24 02:53] LABS: Albumin Level 2.7 gm/dl (3.4-5.0); BUN Creatinine Ratio 15.2 (10-20); Bilirubin,Total 0.6 mg/dl (0.2-1.0); Calcium 7.6 mg/dl (8.6-10.3); Creatinine Clr Calc Pharmacy 69.6 ml/min; Est GFR (African American) 95.6 ml/min; Est GFR (Non-African American) 82.5 ml/min; Globulin 2.7 gm/dl (2.5-4.0); Magnesium 2.2 mg/dl (1.7-2.4); Phosphorus 3.2 mg/dl (2.5-4.9); Potassium 3.3 mmol/L (3.5-5.1); Total Protein 5.4 gm/dl (6.0-8.3)
[2023-07-24 03:03] LABS: Basophils # (auto) 0.02 K/uL (0.00-0.20); Basophils % (auto) 0.3 %; Echinocytes 1+; Hematocrit (blood only) 27.7 % (37.0-47.0); Hemoglobin 9.8 g/dl (12.0-16.0); Immature Granulocytes # (auto) 0.11 K/uL (0.01-0.20); Immature Granulocytes % (auto) 1.6 %; Lymphocytes % (auto) 2.8 %; Mean Corpuscular Hemoglobin 33.6 pg (25.0-34.0); Mean Corpuscular Hgb Conc 35.4 g/dL (32.0-36.0); Mean Corpuscular Volume 94.9 fL (80.0-100.0); Mean Platelet Volume 11.4 fL (9.4-12.4); Monocytes # (auto) 0.34 K/uL (0.11-0.59); Monocytes % (auto) 4.8 %; Neutrophils # (auto) 6.37 K/uL (1.40-6.50); Neutrophils % (auto) 90.5 %; Platelet Count 98 K/uL (130-400); Polychromasia 1+; RDW Coefficient of Variation 13.3 % (11.5-14.5); RDW Standard Deviation 46.1 fL (36.4-46.3); Red Blood Count 2.92 M/uL (4.20-5.40); White Blood Count 7.04 K/ul (4.8-10.8)
[2023-07-24] MEDS: PIPERACILLIN/TAZOBACTAM 4.5 GM in DEXTROSE 5% MINI-B 100 ML IV SCH ×2 (04:33→12:11)
[2023-07-24] MEDS: METOPROLOL TARTRATE 1 MG/ML VIAL IV SCH ×4 (05:38→17:42)
[2023-07-24] MEDS: PANTOprazole 40 MG TAB PO SCH (05:39)
[2023-07-24] MEDS ORDERED: GABAPENTIN 600 MG TAB PO SCH ×2 (06:00→20:00)
[2023-07-24] MEDS: IPRATROPIUM BROMIDE NEB SOLN 0.02% 2.5 ML VIAL INH SCH ×5 (07:46→20:41)
[2023-07-24] MEDS: SODIUM CHLOR 7% 4 ML NEB NEB SCH ×2 (07:46→20:41)
[2023-07-24] MEDS: LEVALBUTEROL 1.25 MG/3 ML NEB NEB SCH ×5 (07:46→20:41)
[2023-07-24] MEDS ORDERED: GABAPENTIN 400 MG CAP PO SCH ×2 (08:15→22:15)
[2023-07-24] MEDS ORDERED: POTASSIUM CHLORIDE CRTAB 20 MEQ TABCR PO STA (08:39)
[2023-07-24] MEDS: FUROSEMIDE INJ 20 MG/2 ML VIAL IV SCH ×3 (08:47→18:05)
[2023-07-24] MEDS: UMECLIDINIUM/VILANTEROL 62.5/25MCG 7 PUFFS/INHALER INH SCH (08:48)
[2023-07-24] MEDS: MULTIVITAMIN TAB PO SCH (08:48)
[2023-07-24] MEDS: METOPROLOL SUCC 25MG EXT REL TAB PO SCH (08:48)
[2023-07-24] MEDS: POTASSIUM CHLORIDE CRTAB 20 MEQ TABCR PO SCH (08:48)
[2023-07-24] MEDS: THIAMINE HCL 100 MG TAB PO SCH (08:48)
[2023-07-24] MEDS: CALCIUM CITRATE 950 MG TAB PO SCH ×3 (08:49→18:11)
[2023-07-24] MEDS: FLUTICASONE FUROATE 100MCG 14 PUFFS/INHALER INH SCH (08:49)
[2023-07-24] MEDS: FOLIC ACID 1 MG TAB PO SCH (08:49)
[2023-07-24] MEDS: FEXOFENADINE HCL 180 MG TAB PO SCH (08:49)
[2023-07-24] MEDS: HEPARIN SODIUM/DEXTROSE 25,000 UNITS/500 ML BAG IV SCH (08:55)
[2023-07-24] MEDS: dilTIAZem HCL 240 MG CAPCR PO SCH (09:49)
--- NOTE | 2023-07-24 09:49 | Pulmonology Progress Note ---
Date of Service July 24, 2023 Assessment & Plan (1) Community acquired pneumonia: Laterality: left Lung location: upper lobe of lung Qualified Code(s): J18.9 - Pneumonia, unspecified organism (2) Pulmonary embolism: (3) Acute respiratory failure with hypoxia: (4) COPD (chronic obstructive pulmonary disease): (5) Immunocompromised state: Plan IMPRESSION: 58-year-old female with a significant past medical history of rheumatoid arthritis and COPD who was admitted for acute hypoxic respiratory failure in the setting of community-acquired pneumonia with work-up findings consistent with pulmonary embolism currently anticoagulated on heparin. RECOMMENDATIONS: 1. Community-acquired pneumonia - Patient has declined overnight and is now requiring BiPAP. I question if this is related to the patient's mental status more so than the pneumonia process, however chest x-ray does show concerning worsening infiltrate of the LEFT lower lobe. Given her aggressive antibiotic treatment plan and pulmonary toileting and worsening status, the patient likely warrants bronchoscopic evaluation. I did review this with the patient's by phone. He is in agreement with proceeding with procedure. I did inform him that the patient is at risk for remaining intubated post procedurally for an unknown amount of time afterwards given her acuity of illness and slow progression at this point. He acknowledges this and agrees with proceeding including prolonged intubation if necessary. Cultures can be obtained from the BAL and we certainly can narrow in on antibiotic coverage as well. Unfortunately, the patient remains on a heparin gtt secondary to PE. She will need to off of the drip for 6 hours prior to procedure. Spoke with the OR. Her b ronch will be changed until 1030 tomorrow morning in the OR. Her Heparin gtt will need to be held starting at 0430. 2. Pulmonary embolism - Perfusion studies concerning for likely underlying pulmonary emboli which certainly could be resulting in a degree of the patient's hypoxia. She is currently anticoagulated on heparin. Can likely transition the patient to oral DOAC during admission. Echocardiogram assessed is relatively normal in regard to the RIGHT-sided heart function. Would recommend initiating DOAC therapy at some point in the during this hospitalization with plan for at least 3 months of therapy, however lifelong anticoagulated could be argued in a patient without history implying significant provocation. No need for follow-up imaging or echocardiogram in the outpatient setting from a PE evaluation otherwise. 3. Acute respiratory failure with hypoxia - Multifactorial in the patient with underlying COPD, new LEFT lower lobe infiltrate, and findings of pulmonary emboli. 4. COPD - Currently treated with Trelegy and albuterol in the outpatient setting. She is managed by her primary care provider in the outpatient setting. Will require follow-up in the outpatient setting with her primary service at the time of discharge. Thank you for allowing us to participate in the care of this patient. Pulmonary medicine will continue to follow along. Admission and Anticipated Discharge Date Admission Date: July 20, 2023 Subjective Patient was seen and evaluated bedside. Overnight events were noted. The patient is resting comfortably on BiPAP. She awakes minimally to noxious stimuli. She is able to offer no subjective information today. Review of Systems Review of Systems: A complete 10 point review of systems was reviewed with the patient with pertinent positives and negatives as per history of present illness. All else were negative. Physical Exam Physical Exam: VITAL SIGNS - Vital signs and nursing notes were reviewed. GENERAL - 58-year-old female who is somnolent on BiPAP. LUNGS - Chest wall evaluation demonstrates normal chest wall A:P diameter. Auscultation reveals diminished breath sounds at the LEFT-sided lung base. No wheezes, rales, or rhonchi appreciated. CARDIAC - RRR with S1/S2. No murmur, rubs, or gallops appreciated. PSYCH - A&Ox3 and cooperates fully with examiner. Pt is very pleasant and interacts well with examiner. Results & Data Results & Data Vital Signs (Past 12 Hours) Vital Signs Temp Pulse Pulse Resp BP BP Pulse Ox 07/24/23 08:00 07/24/23 07:58 82 07/24/23 07:48 36.6 C 81 24 111/77 94 07/24/23 07:23 78 23 94 07/24/23 05:38 79 100/73 07/24/23 04:55 36.0 C L 77 24 107/72 95 07/24/23 02:40 85 22 97 07/24/23 02:11 36.3 C L 88 23 118/75 97 07/24/23 00:42 37.7 C H 98 H 24 88/63 L 94 07/23/23 23:05 39.2 C H 115 H 34 H 123/92 97 07/23/23 23:00 07/23/23 22:48 121 H 37 H 97 O2 Del Method FiO2 07/24/23 08:00 BiPAP 07/24/23 07:58 07/24/23 07:48 BiPAP 07/24/23 07:23 40 07/24/23 05:38 07/24/23 04:55 CPAP 40 07/24/23 02:40 40 07/24/23 02:11 CPAP 40 07/24/23 00:42 CPAP 40 07/23/23 23:05 CPAP 40 07/23/23 23:00 CPAP 07/23/23 22:48 40 PG Care Time/CCT Total # of Minutes Spent Total Time Spent with Patient: Total time spent is greater than 50% in coordination of care (as documented) at patient's floor/unit and/or counseling patient: Coding Level of Care Code 33638 SUB INP/OBS CARE 3/50MIN Diagnoses Community acquired pneumonia of left upper lobe of lung J18.9 Laterality: left Lung location: upper lobe of lung Pulmonary embolism I26.99 Acute respiratory failure with hypoxia J96.01 COPD (chronic obstructive pulmonary disease) J44.9 Immunocompromised state D84.9
--- NOTE | 2023-07-24 09:54 | Anesthesiology Consultation ---
Date of Service July 24, 2023 Assessment & Plan Chart Review Chart Review: Acceptable Risk for Surgery and Patient NOT seen in Pre Admission Testing Consults Requested none History Surgery Operation Date: 07/24/23 10:00 Proposed Procedures p Bronchoscopy - Juancarlos Moody MD Height/Weight Height: 5 ft 2 in Weight: 67.9 kg Allergies Allergy/AdvReac Type Severity Reaction Status Date / Time Iodinated Contrast Media Allergy Severe Anaphylaxis Verified 07/22/23 00:54 nickel Allergy Mild Rash Verified 07/20/23 19:11 Medications Home Medications Medication Instructions Recorded Confirmed Last Taken albuterol sulfate 2.5 mg/3 mL 2.5 mg inhalation DIRECTED PRN 07/20/23 07/20/23 Unknown (0.083 %) solution for nebulization Shortness Of Breath Or Wheezing albuterol sulfate 90 mcg/actuation 2 puff inhalation Q4H PRN 07/20/23 07/20/23 Unknown aerosol inhaler (Ventolin HFA) COUGH/SHORT OF BREATH/WHEEZING bupropion HCl 200 mg tablet,12 hr 200 mg PO BID 07/20/23 07/20/23 07/18/23 sustained-release diltiazem HCl 240 mg 240 mg PO QAM 07/20/23 07/20/23 07/18/23 capsule,extended release 24 hr escitalopram oxalate 10 mg tablet 15 mg PO QAM 07/20/23 07/20/23 07/18/23 fexofenadine 180 mg tablet 180 mg PO DAILY 07/20/23 07/20/23 07/18/23 fluticasone fur. 100 mcg-umeclid 1 inh inhalation DAILY 07/20/23 07/20/23 07/18/23 62.5 mcg-vilant 25 mcg inhalat.powder (Trelegy Ellipta) folic acid 1 mg tablet 3 mg PO DAILY 07/20/23 07/20/23 07/18/23 hydroxychloroquine 200 mg tablet 300 mg PO HS 07/20/23 07/20/23 07/18/23 leflunomide 10 mg tablet 10 mg PO QAM 07/20/23 07/20/23 07/18/23 losartan 100 mg tablet 100 mg PO QAM 07/20/23 07/20/23 07/18/23 metoprolol succinate 25 mg 25 mg PO DAILY 07/20/23 07/20/23 07/18/23 tablet,extended release 24 hr naproxen sodium 220 mg tablet 440 mg PO Q12H PRN Pain 07/20/23 07/20/23 Unknown omeprazole 20 mg capsule,delayed 20 mg PO DAILYBB 07/20/23 07/20/23 07/18/23 release potassium chloride 10 mEq 10 meq PO QAM 07/20/23 07/20/23 07/18/23 tablet,extended release(part/cryst) (Klor-Con M) psyllium 1 tbsp PO DAILY PRN Constipation 07/20/23 07/20/23 Unknown upadacitinib 15 mg tablet,extended 15 mg PO QAM 07/20/23 07/20/23 07/18/23 release 24 hr (Rinvoq) Active Medications Generic Name Dose Route Start Last Admin Trade Name Freq PRN Reason Stop Dose Admin Acetaminophen 500 mg 07/21/23 08:01 07/22/23 19:05 Acetaminophen 500 Mg Tab PO 08/20/23 08:00 500 mg Q4H PRN Administration Fever or headache Acetaminophen/Codeine Phosphate 1 tab 07/22/23 20:59 07/23/23 08:48 Acetaminophen W/Codeine #3 1 Tab PO 08/21/23 20:58 1 tab Q4H PRN Administration Pain Calcium Citrate 950 mg 07/22/23 18:00 07/24/23 08:49 Calcium Citrate 950 Mg Tab PO 08/21/23 17:59 Not Given PC JAQUELIN Diltiazem HCl 240 mg 07/22/23 09:00 07/24/23 09:49 Diltiazem Hcl 240 Mg Capcr PO 08/21/23 08:59 Not Given QAM JAQUELIN Escitalopram Oxalate 15 mg 07/21/23 09:00 07/21/23 08:00 Escitalopram Oxalate 10 Mg Tab PO 08/20/23 08:59 15 mg QAM JAQUELIN Administration Fexofenadine HCl 180 mg 07/21/23 09:00 07/24/23 08:49 Fexofenadine Hcl 180 Mg Tab PO 08/20/23 08:59 Not Given DAILY JAQUELIN Fluticasone Furoate 1 puffs 07/21/23 09:00 07/24/23 08:49 Fluticasone Furoate 100mcg 14 Puffs/Inhaler INH 08/20/23 08:59 Not Given DAILY JAQUELIN Folic Acid 3 mg 07/21/23 09:00 07/24/23 08:49 Folic Acid 1 Mg Tab PO 08/20/23 08:59 Not Given DAILY JAQUELIN Furosemide 20 mg 07/23/23 20:00 07/24/23 08:47 Furosemide Inj 20 Mg/2 Ml Vial IV 08/22/23 19:59 20 mg Q12H JAQUELIN Administration Gabapentin 400 mg 07/24/23 08:15 07/24/23 09:32 Gabapentin 400 Mg Cap PO 07/24/23 14:16 Not Given Q6H JAQUELIN Hydroxychloroquine Sulfate 300 mg 07/20/23 22:56 07/21/23 22:42 Hydroxychloroquine Sulfate 200 Mg Tab PO 08/19/23 22:55 300 mg HS JAQUELIN Administration Promethazine HCl 6.25 mg/ 50.25 mls @ 201 mls/hr 07/20/23 20:37 07/22/23 00:36 Sodium Chloride IV 08/19/23 20:36 Infused Q6H PRN Infusion Nausea And Vomiting Lorazepam 1 mg/ Syringe 1 mls @ 2 mls/min 07/21/23 17:49 07/23/23 18:24 IV 08/20/23 17:48 2 mls/min UD PRN Administration EtOH Withdrawal AWSS Score 6,7 Protocol Heparin Sodium/Dextrose 25,000 units in 500 mls @ 18 mls/hr 07/21/23 20:15 07/24/23 08:55 Heparin Sodium/Dextrose IV 08/20/23 20:14 900 units/hr .Q24H JAQUELIN 18 mls/hr Administration Protocol 900 UNITS/HR Piperacillin Sod/Tazobactam 100 mls @ 25 mls/hr 07/21/23 20:30 07/24/23 08:33 Sod 4.5 gm/ Dextrose IV 07/28/23 20:29 Infused Q8H JAQUELIN Infusion Protocol Azithromycin 250 mg/ Dextrose 252.5 mls @ 125 mls/hr 07/23/23 12:00 07/23/23 13:35 IV 07/30/23 11:59 Infused Q24H JAQUELIN Infusion Ipratropium Remus 0.5 mg 07/21/23 07:00 07/24/23 07:46 Ipratropium Remus Neb Soln 0.02% 2.5 Ml Vial INH 08/20/23 06:59 0.5 mg QIDR JAQUELIN Administration Levalbuterol HCl 1.25 mg 07/21/23 07:00 07/24/23 07:46 Levalbuterol 1.25 Mg/3 Ml Neb NEB 08/20/23 06:59 1.25 mg QIDR JAQUELIN Administration Metoprolol Succinate 25 mg 07/21/23 09:00 07/24/23 08:48 Metoprolol Succ 25mg Ext Rel Tab PO 08/20/23 08:59 Not Given DAILY JAQUELIN Metoprolol Tartrate 2.5 mg 07/24/23 00:00 07/24/23 05:38 Metoprolol Tartrate 1 Mg/Ml Vial IV 08/23/23 00:00 Not Given Q6 JAQUELIN Miscellaneous 1 each 07/21/23 20:59 07/23/23 21:54 Remove Nicoderm Patch N/A 08/20/23 20:58 1 each DAILY@2058 JAQUELIN Administration Multivitamins 1 tab 07/21/23 09:00 07/24/23 08:48 Multivitamin Tab PO 08/20/23 08:59 Not Given QAM JAQUELIN Nicotine 14 mg 07/20/23 20:30 07/23/23 21:55 Nicotine 14 Mg/24 Hr Patch TD 08/19/23 20:29 14 mg HS JAQUELIN Administration Pantoprazole Sodium 40 mg 07/21/23 06:30 07/24/23 05:39 Pantoprazole 40 Mg Tab PO 08/20/23 06:29 Not Given DAILYBB JAQUELIN Potassium Chloride 20 meq 07/23/23 10:45 07/24/23 08:48 Potassium Chloride Crtab 20 Meq Tabcr PO 08/22/23 10:44 Not Given BID JAQUELIN Sodium Chloride 4 ml 07/22/23 19:00 07/24/23 07:46 Sodium Chlor 7% 4 Ml Neb NEB 08/21/23 18:59 4 ml BIDR JAQUELIN Administration Thiamine HCl 100 mg 07/22/23 09:00 07/24/23 08:48 Thiamine Hcl 100 Mg Tab PO 08/21/23 08:59 Not Given QAM JAQUELIN Umeclidinium/Vilanterol 1 puffs 07/21/23 09:00 07/24/23 08:48 Umeclidinium/Vilanterol 62.5/25mcg 7 Puffs/Inhaler INH 08/20/23 08:59 Not Given DAILY JAQUELIN Past Medical History Medical History Acute respiratory failure with hypoxia Mood disorder HTN (hypertension) COPD (chronic obstructive pulmonary disease) Tobacco abuse Rheumatoid arthritis Past Family History Family History Other Asthma Breast cancer COPD (chronic obstructive pulmonary disease) Past Surgical History Surgical History H/O tubal ligation Social History Smoking Status: Current every day smoker Do You Dip or Chew Tobacco: No Hx Alcohol Use: Yes Alcohol type: hard liquor alcohol intake frequency: 0-2 drinks per day Hx Substance Use: No substance use type: does not use Physical Exam Vital Signs Last Vital Signs Temp 36.6 C 07/24/23 07:48 Pulse 82 07/24/23 07:58 Resp 24 07/24/23 07:48 BP 111/77 07/24/23 07:48 Pulse Ox 94 07/24/23 07:48 O2 Del Method BiPAP 07/24/23 08:00 O2 Flow Rate 5 07/23/23 19:48 FiO2 40 07/24/23 07:23 Testing Laboratory Results 07/24/23 02:09 07/24/23 02:09 PT 11.3 Seconds (9.0-12.0) 07/20/23 16:50 INR 1.0 (0.9-1.1) 07/20/23 16:50 APTT 28.4 Seconds (21.0-31.0) 07/23/23 05:49 Hemoglobin A1c 5.7 % (4.5-5.6) H 07/20/23 16:50 Urine Color Dark Yellow 07/21/23 Unknown Urine Appearance Clear (Clear) 07/21/23 Unknown Urine pH 6.0 (4.5-7.5) 07/21/23 Unknown Ur Specific [place] 1.033 (1.000-1.030) H 07/21/23 Unknown Urine Protein 2+ (Negative) H 07/21/23 Unknown Urine Glucose (UA) Negative (Negative) 07/21/23 Unknown Urine Ketones 1+ (Negative) H 07/21/23 Unknown Urine Nitrite Negative (Negative) 07/21/23 Unknown Ur Leukocyte Esterase Negative (Negative) 07/21/23 Unknown Urine WBC (Auto) 1-5 /hpf (0-5) 07/21/23 Unknown Urine RBC (Auto) 0-4 /hpf (0-4) 07/21/23 Unknown U Hyaline Cast (Auto) 1-5 /lpf (0-5) 07/21/23 Unknown U Epithel Cells (Auto) >30 /lpf (0-5) H 07/21/23 Unknown Urine Bacteria (Auto) Negative (Negative) 07/21/23 Unknown 07/21/23 12:36 Gram Stain - Final Sputum, Expectorated Sputum Culture - Final Moderate normal gaby. 07/20/23 17:32 Aerobic Blood Culture - Preliminary Blood No growth in Aerobic bottle after 48 hours. Anaerobic Blood Culture - Preliminary No growth in Anaerobic bottle after 48 hours. 07/20/23 16:50 Aerobic Blood Culture - Preliminary Blood No growth in Aerobic bottle after 48 hours. Anaerobic Blood Culture - Preliminary No growth in Anaerobic bottle after 48 hours. Laboratory Tests 07/20/23 07/20/23 07/23/23 16:50 16:50 05:49 WBC Hgb Hct Plt Count PT 11.3 INR 1.0 APTT 28.4 Sodium Potassium Chloride Carbon Dioxide BUN Creatinine Glucose Hemoglobin A1c 5.7 H TSH 1.811 07/24/23 07/24/23 07/24/23 02:09 02:09 02:09 WBC 7.04 Hgb 9.8 L Hct 27.7 L Plt Count 98 L PT INR APTT Sodium 125 L Potassium 3.3 L Chloride 94 L Carbon Dioxide 21 BUN 12 Creatinine 0.79 Glucose 130 H Hemoglobin A1c TSH Electrocardiogram Date: 07/23/23 Findings: + ST @ (115) Chest X-Ray Date: 07/23/23 IMPRESSION: 1. Dense airspace consolidation in left mid to lower lung with a small left pleural effusion is unchanged from yesterday. 2. Cardiomegaly and emphysema. Echocardiogram Date: 07/22/23 EF: 55-60 LV Function: normal Valvular Disease: + no significant valvular disease
[2023-07-24] MEDS ORDERED: NSS + 20MEQ KCL 20 MEQ/1,000 ML BAG IV SCH (10:15)
[2023-07-24] MEDS ORDERED: POTASSIUM CHLORIDE 10 MEQ TABCR PO SCH (11:15)
--- NOTE | 2023-07-24 11:19 | Nephrology Progress Note ---
Date of Service July 24, 2023 Assessment & Plan Admission and Anticipated Discharge Date Admission Date: July 20, 2023 Subjective Assessment & Plan (1) Hyponatremia: Na initially improved and then dropped to 124 again. NS restarted and then went to 126. yesterday had both NS and lasix but na did not change. continue to avoid nsaids, to hold losartan and bupropion -- can have a role in hyponatremia as can chronic or acute lung diseases On Liquid diet which will make it hard to raise Na+. Given worsened resp distress, CXR pattern, fact that she has received IV fluid now for 3 days--No need for more iv fluid. Resp distress Pneumonia with CHF with ? PE. Would rather give more lasix --raise to 20 iv q8h. May need even more. But she has made a lot of urine after the 845 AM lasix as per RN. next dose lasix at 12 Noon. Check BMP again at 3 PM. K will drop and not able to give any PO Kcl. Give another kcl riders 10 meq x 4 to cover iv lasix Raise K supplement. Low Lytes from Poor nutrition, prior alcohol S-Lot More SOB. On BIpap and now moved to ICU. Not talking at all. na not better even after NS started and also with iv lasix. Physical Exam Constitutional: lethargic and weak. Sleepy. eyes close + dry oral mucous membranes Neck: Supple no jvd Respiratory: + tachypneic and + prolonged expiratory phase Auscultation: + diminished lung sounds and + rhonchi Cardiovascular: RRR, no murmur, no edema Gastrointestinal (Abdomen): Inspection/Auscultation: normal bowel sounds Percussion/Palpation: abdomen soft; abdomen nontender Musculoskeletal: Extremities: strength 5/5 throughout Skin: no rashes, warm and dry Neurologic: Marked generalized weakness answers 1 yes or no question and falls asleep again Results & Data Vital Signs (Past 12 Hours) Vital Signs Temp Pulse Pulse Resp BP BP Pulse Ox 07/24/23 10:05 88 123/77 07/24/23 08:35 118/88 07/24/23 08:00 07/24/23 07:58 82 07/24/23 07:48 36.6 C 81 24 111/77 94 07/24/23 07:23 78 23 94 07/24/23 05:38 79 100/73 07/24/23 04:55 36.0 C L 77 24 107/72 95 07/24/23 02:40 85 22 97 07/24/23 02:11 36.3 C L 88 23 118/75 97 07/24/23 00:42 37.7 C H 98 H 24 88/63 L 94 O2 Del Method FiO2 07/24/23 10:05 07/24/23 08:35 07/24/23 08:00 BiPAP 07/24/23 07:58 07/24/23 07:48 BiPAP 07/24/23 07:23 40 07/24/23 05:38 07/24/23 04:55 CPAP 40 07/24/23 02:40 40 07/24/23 02:11 CPAP 40 07/24/23 00:42 CPAP 40
[2023-07-24] MEDS: AZITHROMYCIN 250 MG in DEXTROSE 5% 250 ML IV SCH (12:10)
--- NOTE | 2023-07-24 13:03 | Hospitalist Progress Note ---
Date of Service July 24, 2023 Assessment & Plan (1) Severe sepsis: (2) Sepsis: (3) Community acquired pneumonia: (4) Hyponatremia: (5) COPD exacerbation: (6) Encephalopathy: (7) Immunocompromised state: (8) Elevated troponin: (9) Abnormal liver enzymes: (10) Prediabetes: (11) Anxiety: Plan Pt is a 58yoF with PMHx significant for hypertension, PSVT, COPD, RA on immunosuppressive regimen, NAFLD, ADD/anxiety/mood disorder, cervical dysplasia, erythema nodosum, ongoing tobacco abuse admitted with sepsis in the setting of of pneumonia. Sepsis COPD exacerbation Pneumonia Pt with SOB from home WBC elevated at 14.68 on admission, has since become normal Chest xray concerning for pneumonia with opacities noted on the left CT chest with lingula consolidation- follow up CT chest recommended in 1-2 months to ensure resolution V/Q scan with indeterminate to high suspicion for PE- continue heparin at this time Sputum Cx with NGTD Blood Cx x 2 with NGTD Biofire negative, UA not suggestive of infection Pt immunocompromised Originally on Rocephin and doxycycline, broadened to Zosyn, switched doxy to azithromycin oxygen supplementation as needed, pt now with occasional increased oxygen need Pulmonology consult placed, appreciate recs -MRSA Screen negative -Legionella is positive -continue Zosyn, switch doxy to azithromycin -discontinue steroids -Hold all immunosuppressants -Start percussive vest therapy 4 times daily -start hypertonic saline twice daily -continue nebs QID -wean oxygen as tolerated with goal above 90% Condition has been deteriorating as of this morning She has been requiring BiPAP to maintain saturation More wheezing and shortness of breath this afternoon Will get ABG and chest x-ray May need to go to ICU Encephalopathy Possibly secondary to sepsis SIRS plus encephalopathy Head CT with no acute changes VBG on admission with low CO2 Hyponatremic, sodium 127 on admission- could be contributory Tox profile ordered for completion and to rule out a toxic cause-still pending Brain MRI unremarkable Consider Neurology consult if symptoms do not improve- pt more alert today Minimize use of narcotics for pain, receiving Ativan per AWSS protocol Hyponatremia Sodium 127 on admission Home bupropion possible contributory Hyponatremic workup, careful correction of sodium nephrology consult- appreciate recs IV fluid has been discontinued and the sodium level has not changed Lasix doses have been increased to 20 mg 3 times daily Will monitor PRP and electrolytes RA Immunocompromised status hx rheumatoid arthritis on immunosuppressive regimen Hold Arava and Rinvoq RA medications for now until patient recovers from infection Hold hydroxychloroquine Elevated Troponins hs-Trop elevated at 17.6 to 28.5 to 26.3 EKG with sinus tach Echo ordered with no acute changes Likely elevation of trop due to demand Livedo Reticularis Pt's with picture of rash Reticular pattern on lower extremities, states it comes and goes Was not present on lower extremities at time of exam today Associated with hypercoaguable states, vasculitis D-dimer ordered and elevated -lower extremity doppler with no DVT -V/Q scan with indeterminate to high suspicion for PE- continue heparin at this time Hypertension hx PSVT Continue home metoprolol and Diltiazem Hold home losartan Continue to monitor Possible alcoholic hepatitis Abnormal LFTs Hx NAFLD Concern for alcohol abuse as per outpatient [facility] cardiology documentation last month Pt with episode on 07/21 noting she is anxious, having a headache, given one time dose of Ativan 0.5mg Concern for active withdrawal at this time AWSS at risk protocol switched to active protocol with Ativan, consider addition of gabapentin in the setting of encephalopathy DT precautions Continue to monitor for signs of alcohol withdrawal LFTs are stable and is mildly elevated ADD/anxiety/mood disorder Home bupropion on hold in setting of hyponatremia and encephalopathy Holding home lexapro Hyperglycemia Hgba1c of 5.7 indicating prediabetes Monitor Ongoing tobacco abuse Nicotine patch Encourage cessation Diet: Clear liquid DVT prophylaxis: Lovenox subcu Full code Dispo: PT/OT ordered Admission and Anticipated Discharge Date Admission Date: July 20, 2023 Subjective 07/24/2023 The patient was seen and examined in telemetry unit She remains drowsy but otherwise alert and awake Denies any significant complaints Has been on BiPAP and saturating normally Review of Systems Review of Systems: All systems reviewed and are unremarkable except as noted below Physical Exam Physical Exam: Lying in bed comfortably Constitutional: well developed, well nourished, + ill appearing and average body habitus Eyes: PERRL, conjunctivae normal, anicteric sclerae ENMT: external ear and nose normal, oropharynx normal Neck: trachea midline, no thyromegaly Respiratory: no respiratory distress Auscultation: + diminished lung sounds and + crackles (Occasional crackles at the bases) Cardiovascular: Rate/Rhythm: regular rate, regular rhythm and + tachycardic Heart Sounds: normal S1 and normal S2; no murmur Extremities: no edema Gastrointestinal (Abdomen): Inspection/Auscultation: normal bowel sounds; abdomen not distended Percussion/Palpation: abdomen soft; abdomen nontender Musculoskeletal: No acute arthritis involving any of the joint Neurologic: Alert, awake and oriented x 3. No focal sensory or no motor deficit appreciated Lymphatic: no cervical or axillary lymphadenopathy Results & Data Results & Data Vital Signs (Past 12 Hours) Vital Signs Temp Pulse Pulse Resp BP BP Pulse Ox 07/24/23 12:48 127 H 40 H 154/95 H 96 07/24/23 12:27 87 07/24/23 12:07 37.4 C 93 H 30 H 120/89 96 07/24/23 10:05 88 123/77 07/24/23 08:35 118/88 07/24/23 08:00 07/24/23 07:58 82 07/24/23 07:48 36.6 C 81 24 111/77 94 07/24/23 07:23 78 23 94 07/24/23 05:38 79 100/73 07/24/23 04:55 36.0 C L 77 24 107/72 95 07/24/23 02:40 85 22 97 07/24/23 02:11 36.3 C L 88 23 118/75 97 O2 Del Method FiO2 07/24/23 12:48 BiPAP 07/24/23 12:27 07/24/23 12:07 BiPAP 07/24/23 10:05 07/24/23 08:35 07/24/23 08:00 BiPAP 07/24/23 07:58 07/24/23 07:48 BiPAP 07/24/23 07:23 40 07/24/23 05:38 07/24/23 04:55 CPAP 40 07/24/23 02:40 40 07/24/23 02:11 CPAP 40 Laboratory Results Short CBC 07/24/23 Range/Units 02:09 WBC 7.04 (4.8-10.8) K/ul Hgb 9.8 L (12.0-16.0) g/dl Hct 27.7 L (37.0-47.0) % Plt Count 98 L (130-400) K/uL BMP 07/23/23 07/23/2323 22:34 23:36 02:09 Sodium Cancelled 124 L 125 L Potassium Cancelled 3.2 L 3.3 L Chloride Cancelled 93 L 94 L Carbon Dioxide Cancelled 20 L 21 BUN Cancelled 11 12 Creatinine Cancelled 0.70 0.79 Glucose Cancelled 131 H 130 H Calcium Cancelled 7.8 L 7.6 L Liver Function 07/24/23 Range/Units 02:09 Total Bilirubin 0.6 (0.2-1.0) mg/dl AST 46 H (13-39) U/L ALT 38 (7-52) U/L Alkaline Phosphatase 33 L (34-104) U/L Albumin 2.7 L (3.4-5.0) gm/dl Medications Administered Current Inpatient Medications Acetaminophen (Acetaminophen 500 Mg Tab) 500 mg PO Q4H PRN PRN Reason: Fever or headache Stop: 08/20/23 08:00 Last Admin: 07/22/23 19:05 Dose: 500 mg Acetaminophen/Codeine Phosphate (Acetaminophen W/Codeine #3 1 Tab) 1 tab PO Q4H PRN PRN Reason: Pain Stop: 08/21/23 20:58 Last Admin: 07/23/23 08:48 Dose: 1 tab Calcium Citrate (Calcium Citrate 950 Mg Tab) 950 mg PO PC [facility] Stop: 08/21/23 17:59 Last Admin: 07/24/23 12:11 Dose: Not Given Diltiazem HCl (Diltiazem Hcl 240 Mg Capcr) 240 mg PO QAM [facility] Stop: 08/21/23 08:59 Last Admin: 07/24/23 09:49 Dose: Not Given Escitalopram Oxalate (Escitalopram Oxalate 10 Mg Tab) 15 mg PO QAM [facility] Stop: 08/20/23 08:59 Last Admin: 07/21/23 08:00 Dose: 15 mg Fexofenadine HCl (Fexofenadine Hcl 180 Mg Tab) 180 mg PO DAILY [facility] Stop: 08/20/23 08:59 Last Admin: 07/24/23 08:49 Dose: Not Given Fluticasone Furoate (Fluticasone Furoate 100mcg 14 Puffs/Inhaler) 1 puffs INH DAILY [facility] Stop: 08/20/23 08:59 Last Admin: 07/24/23 08:49 Dose: Not Given Folic Acid (Folic Acid 1 Mg Tab) 3 mg PO DAILY [facility] Stop: 08/20/23 08:59 Last Admin: 07/24/23 08:49 Dose: Not Given Furosemide (Furosemide Inj 20 Mg/2 Ml Vial) 20 mg IV TIDPC [facility] Stop: 08/23/23 11:14 Last Admin: 07/24/23 12:10 Dose: 20 mg Gabapentin (Gabapentin 400 Mg Cap) 400 mg PO Q24H JAQUELIN Stop: 07/27/23 14:16 Gabapentin (Gabapentin 400 Mg Cap) 400 mg PO Q12H JAQUELIN Stop: 07/26/23 14:16 Gabapentin (Gabapentin 400 Mg Cap) 400 mg PO Q8H JAQUELIN Stop: 07/25/23 14:16 Gabapentin (Gabapentin 400 Mg Cap) 400 mg PO Q6H [facility] Stop: 07/24/23 14:16 Last Admin: 07/24/23 09:32 Dose: Not Given Hydroxychloroquine Sulfate (Hydroxychloroquine Sulfate 200 Mg Tab) 300 mg PO HS [facility] Stop: 08/19/23 22:55 Last Admin: 07/21/23 22:42 Dose: 300 mg Promethazine HCl 6.25 mg/ (Sodium Chloride) 50.25 mls @ 201 mls/hr IV Q6H PRN PRN Reason: Nausea And Vomiting Stop: 08/19/23 20:36 Last Infusion: 07/22/23 00:36 Dose: Infused Lorazepam 1 mg/ Syringe 1 mls @ 2 mls/min IV UD PRN; Protocol PRN Reason: EtOH Withdrawal AWSS Score 6,7 Stop: 08/20/23 17:48 Last Admin: 07/23/23 18:24 Dose: 2 mls/min Lorazepam 2 mg/ Syringe 2 mls @ 2 mls/min IV UD PRN; Protocol PRN Reason: EtOH Withdrawal AWSS Score 8,9 Stop: 08/20/23 17:48 Heparin Sodium/Dextrose (Heparin Sodium/Dextrose) 25,000 units in 500 mls @ 18 mls/hr IV .Q24H JAQUELIN; Protocol Stop: 08/20/23 20:14 Last Admin: 07/24/23 08:55 Dose: 900 units/hr, 18 mls/hr Piperacillin Sod/Tazobactam (Sod 4.5 gm/ Dextrose) 100 mls @ 25 mls/hr IV Q8H [facility]; Protocol Stop: 07/28/23 20:29 Last Admin: 07/24/23 12:11 Dose: 25 mls/hr Azithromycin 250 mg/ Dextrose 252.5 mls @ 125 mls/hr IV Q24H [facility] Stop: 07/30/23 11:59 Last Admin: 07/24/23 12:10 Dose: 125 mls/hr Potassium Chloride (K Lauri / Wtr) 10 meq in 100 mls @ 100 mls/hr IV Q1H [facility] Stop: 07/24/23 15:44 Last Admin: 07/24/23 12:10 Dose: 100 mls/hr Ipratropium [place] (Ipratropium [place] Neb Soln 0.02% 2.5 Ml Vial) 0.5 mg INH QIDR [facility] Stop: 08/20/23 06:59 Last Admin: 07/24/23 11:20 Dose: 0.5 mg Levalbuterol HCl (Levalbuterol 1.25 Mg/3 Ml Neb) 1.25 mg NEB QIDR [facility] Stop: 08/20/23 06:59 Last Admin: 07/24/23 11:21 Dose: 1.25 mg Metoprolol Succinate (Metoprolol Succ 25mg Ext Rel Tab) 25 mg PO DAILY [facility] Stop: 08/20/23 08:59 Last Admin: 07/24/23 08:48 Dose: Not Given Metoprolol Tartrate (Metoprolol Tartrate 1 Mg/Ml Vial) 2.5 mg IV Q6 [facility] Stop: 08/23/23 00:00 Last Admin: 07/24/23 12:12 Dose: 2.5 mg Miscellaneous (Remove Nicoderm Patch) 1 each N/A DAILY@2058 [facility] Stop: 08/20/23 20:58 Last Admin: 07/23/23 21:54 Dose: 1 each Miscellaneous (Heparin Gtt: Stop Order) 1 each N/A ONE ONE Stop: 07/25/23 04:31 Multivitamins (Multivitamin Tab) 1 tab PO QAM [facility] Stop: 08/20/23 08:59 Last Admin: 07/24/23 08:48 Dose: Not Given Nicotine (Nicotine 14 Mg/24 Hr Patch) 14 mg TD HS [facility] Stop: 08/19/23 20:29 Last Admin: 07/23/23 21:55 Dose: 14 mg Pantoprazole Sodium (Pantoprazole 40 Mg Tab) [facility] Stop: 08/20/23 06:29 Last Admin: 07/24/23 05:39 Dose: Not Given Psyllium Hydrophilic Mucilloid (Psyllium Or Guar Gum Fiber Powder Packet) 1 pkt PO DAILY PRN PRN Reason: Constipation Stop: 08/19/23 23:41 Sodium Chloride (Sodium Chlor 7% 4 Ml Neb) 4 ml NEB BIDR [facility] Stop: 08/21/23 18:59 Last Admin: 07/24/23 07:46 Dose: 4 ml Thiamine HCl (Thiamine Hcl 100 Mg Tab) 100 mg PO QAM [facility] Stop: 08/21/23 08:59 Last Admin: 07/24/23 08:48 Dose: Not Given Umeclidinium/Vilanterol (Umeclidinium/Vilanterol 62.5/25mcg 7 Puffs/Inhaler) 1 puffs INH DAILY [facility] Stop: 08/20/23 08:59 Last Admin: 07/24/23 08:48 Dose: Not Given (3) Community acquired pneumonia Laterality: left Lung location: upper lobe of lung Qualified Code(s): J18.9 - Pneumonia, unspecified organism
[2023-07-24 13:48] LABS: iSTAT Arterial Blood Gas HCO3 20 meg/L (19-24); iSTAT Arterial Blood Gas pCO2 26 mmHg (35-46); iSTAT Arterial Blood Gas pH 7.48 (7.35-7.45); iSTAT Arterial Blood Gas pO2 59 mmHg (80-95); iSTAT Carbon Dioxide 21 mmol/L (24-31); iSTAT Hematocrit 31 % (37-47); iSTAT Hemoglobin 10.5 g/dl (12.0-16.0); iSTAT Potassium 3.3 mmol/L (3.3-5.0); iSTAT Sodium 126 mmol/L (135-144)
[2023-07-24] MEDS ORDERED: RAPID SEQUENCE INDUCTION BAG ONE (14:02)
[2023-07-24] MEDS ORDERED: PROPOFOL IV EMULSION 10 MG/ML 100 ML VIAL IV ONE (14:03)
[2023-07-24] MEDS ORDERED: ETOMIDATE 2 MG/ML 20 ML VIAL IV ONE ×2 (14:07→15:23)
[2023-07-24] MEDS ORDERED: ROCURONIUM BROMIDE 10 MG/ML 5 ML VIAL IV STA (14:07)
[2023-07-24] MEDS ORDERED: PROPOFOL BOLUS FROM BAG IV PRN (14:08)
[2023-07-24] MEDS ORDERED: STAT IV Infusion **Titration per Protocol STA (14:08)
--- NOTE | 2023-07-24 14:14 | XRay Report ---
SINGLE VIEW CHEST CLINICAL HISTORY: Congestive heart failure. FINDINGS: An AP, portable, upright chest radiograph is compared to study dated 07/23/2023. Correlation is made with chest CT dated 07/20/2023. The examination is degraded by portable technique and patient rotation. The heart is enlarged. The pulmonary vasculature is noncongested. Emphysema and chronic i nterstitial thickening is similar to previous. An accessory azygos fissure is incidentally noted. Den se airspace consolidation in the left mid to lower lung with a left pleural effusion is similar to ye sterday. The right lung appears clear noting basilar atelectasis. No pneumothorax is seen. The bony t horax is grossly intact. IMPRESSION: 1. Dense airspace consolidation in left mid to lower lung with a small left pleural effusion is uncha nged from yesterday. 2. Cardiomegaly and emphysema. . ACT 112: Negative or not required by law. Electronically signed by: Jake Dobbs M.D. 07/24/2023 2:12 PM
--- NOTE | 2023-07-24 14:31 | Procedure Note ---
Procedure Note Date of Service July 24, 2023 Note INTUBATION PROCEDURE NOTE: Dr. Juancarlos Moody A time-out was completed verifying correct patient, procedure, site, positioning. Patient was evaluated and required intubation for hypoxemic respiratory failure and altered mental status. Sedative agent used: 20 mg etomidate Paralysis agent used: 50 mg rocuronium Emergent consent was implied given patients rapidly declining clinical status and need for airway protection. Number of attempts: 1 Grade view: 1 The patient was prepared in the appropriate fashion. Sedation was achieved utilizing 20 mg of time and 50 mg or. The patient was easily ventilated using [id number] to achieve adequate oxygenation. A 7.5 Hebrew endotracheal tube was placed under GlideScope guidance to 23 cm at the lip. The stylette was removed and balloon was inflated with 10mL of air. Appropriate Colorimetric change was appreciated. Bilateral breath sounds were heard without air sounds in the abdomen. Post Intubation Chest X-ray .ordered Patient tolerated the procedure well and there were no immediate complications. Coding CPT Codes Resuscitation - Resuscitation: 76159 Endotracheal Intubation, emergency ([id number]) [facility] [place] Procedure Codes (Charges) Resuscitation Resuscitation: [id number] Endotracheal Intubation, emergency
--- NOTE | 2023-07-24 14:34 | Procedure Note ---
Procedure Note Date of Service July 24, 2023 Note PREOPERATIVE DIAGNOSIS: Left lower lobe pneumonia and hypoxic respiratory failure POSTOPERATIVE DIAGNOSIS: Left lower lobe pneumonia and hypoxic respiratory failure PROCEDURE PERFORMED: Flexible fiberoptic bronchoscopy with bronchial washings from the left lower lobe COMPLICATIONS: None. INDICATION: Evaluate for infectious etiology in clear airways PROCEDURE: Emergency consent was implied as the patient was hypoxic and required intubation and airway clearance therapies. She is refractory to conservative mucociliary airway clearance therapies with flutter valve, percussive vest therapy and nebulizer therapy. Timeout performed immediately prior to the procedure. The bronchoscope was inserted via the endotracheal tube adapter while the patient was placed on 100% FiO2 via the ventilator. ET tube appeared to be in the proper position and the trachea about 3 cm above the khurram. Bilateral tracheobronchial tree inspection was performed. Thick secretions were suctioned from the bilateral tracheobronchial tree. The scope was wedged in the left lower lobe and washings were performed in this region with 150 mL's of saline. 40 mL of fluid was sent back for sample. The tissue in the left lower lobe appeared friable. No active bleeding was seen. No endobronchial lesions. The bronchoscope was then withdrawn. The patient tolerated the procedure well. Recommendations: Thick frothy secretions noted emanating from the left lower lobe and spilling over into the right mainstem bronchus. These were suctioned free. Follow cultures, cell count and cytology from the bronchial washings in the left lower lobe. Coding CPT Codes Pulmonary/Thoracic - Pulmonary and Thoracic: 84131 Dx bronchoscopy/wash ([id number]) [facility] [place] (Charges) Pulmonary/Thoracic Procedure 1: Pulmonary and Thoracic: 60963 Dx bronchoscopy/wash
--- NOTE | 2023-07-24 14:39 | Communication Note ---
Date of Service: July 24, 2023 Patient was urgently evaluated due to worsening respiratory status and altered mental status. Patient was found on BiPAP hypoxemic and essentially obtunded. She was emergently taken to the ICU where she was intubated and bronched by me. We will continue broad-spectrum antibiotics. We will hold on gabapentin at this time. We will initiate the patient on propofol and fentanyl. Suspect hypoxemic respiratory failure secondary to left lower lobe pneumonia in a immunocompromised host. Other possibility includes aspiration pneumonia given underlying alcohol abuse. Urine Legionella is pending. Fungal cultures and fungal studies sent from bronchoscopy fluid. Patient also with evidence of alcohol withdrawal likely contributing to encephalopathy. We will start the patient on high-dose thiamine. Patient also with high probability perfusion scan concerning for pulmonary embolism. We will restart heparin drip after CT head to make sure no evidence of intracranial bleed. CRITICAL CARE TIME - I have personally spent 48 minutes of critical care time in the direct management of this patient. This is a life/limb threatening event. This includes time spent evaluating patient, direct bedside care, chart review, placing orders, interpretation of diagnostic studies, discussion with consultants, patient, and family members, as well as other required patient management activities. This time is exclusive of all separately billable procedures, and teaching time and separate from and in addition to any other critical care service time. Coding Level of Care Code 72222 CRITICAL CARE 1ST 30-74M
--- NOTE | 2023-07-24 14:50 | XRay Report ---
XR chest 1V portable CLINICAL HISTORY: s/p intubation and bronch TECHNIQUE: Single frontal radiograph of the chest was obtained. Comparison: Comparison is made to chest radiograph 07/24/2023 FINDINGS: Endotracheal tube terminates approximately 6.3 cm from the khurram and can be advanced approximately 3 cm for improved positioning Cardiomegaly is noted. Left airspace opacity is unchanged. Small left pl eural effusion. IMPRESSION: Endotracheal tube terminate 6.3 cm from the khurram and can be advanced approximately 3 cm for improve d positioning. Stable airspace opacity and effusion on the left. ACT 112: Negative or not required by law. Electronically signed by: Matthew Simental M.D. 07/24/2023 2:49 PM
[2023-07-24 14:51] LABS: 7-Aminoclonazepam NEGATIVE ng/mL (<25); Alpha-Hydroxyalprazolam NEGATIVE ng/mL (<25); Alphahydroxymidazolam NEGATIVE ng/mL (<50); Alphahydroxytriazolam NEGATIVE ng/mL (<50); Amobarbital DNR ng/mL (<100); Amphetamines, Ur NEGATIVE ng/mL (<500); Amphetemines Ur GC/MS DNR ng/mL (<250); Barbiturates, Urine NEGATIVE ng/mL (<300); Benzodiazepines,Ur POSITIVE ng/mL (<100); Butalbital DNR ng/mL (<100); Cocaine, Urine NEGATIVE ng/mL (<150); Cocaine,Ur GC/MS DNR ng/mL (<100); Codeine NEGATIVE ng/mL (<50); Confirmatory Facility DNR; EDDP DNR ng/mL (<100); Hydrocodone NEGATIVE ng/mL (<50); Hydromorphone NEGATIVE ng/mL (<50); Hydroxyethylflurazepam NEGATIVE ng/mL (<50); Lorazepam 151 ng/mL (<50); Methadone, Ur GC/MS NEGATIVE ng/mL (<100); Methadone, Urine DNR ng/mL (<100); Methamphetamine DNR ng/mL (<250); Morphine NEGATIVE ng/mL (<50); Norhydrocodone NEGATIVE ng/mL (<50); Noroxycodone 763 ng/mL (<50); Opiates, Urine NEGATIVE CONFIRMED ng/mL (<100); Oxycodone,Ur Screen POSITIVE ng/mL (<100); Pentobarbital DNR ng/mL (<100); Phencyclidine, Ur NEGATIVE ng/mL (<25); Phencyclidine,Ur GC/MS DNR ng/mL (<25); Secobarbital DNR ng/mL (<100); THC20, Qual, Urine POSITIVE ng/mL (<20); Temazepam NEGATIVE ng/mL (<50); Tetrahydrocannabinol 172 ng/mL (<5)
[2023-07-24] MEDS: propofoL 1,000 MG/100 ML VIAL IV SCH ×2 (14:58→20:23)
[2023-07-24] MEDS: fentaNYL citrate 2,500 MCG/250 ML BAG IV SCH (15:01)
[2023-07-24] MEDS: fentaNYL BOLUS from BAG IV PRN (15:06)
[2023-07-24] MEDS ORDERED: ROCURONIUM BROMIDE 10 MG/ML 5 ML VIAL IV ONE (15:23)
[2023-07-24 15:37] LABS: BUN Creatinine Ratio 16.9 (10-20); Creatinine Clr Calc Pharmacy 85.2 ml/min; Est GFR (African American) 113.4 ml/min; Est GFR (Non-African American) 97.9 ml/min; Potassium 3.4 mmol/L (3.5-5.1)
--- NOTE | 2023-07-24 15:44 | CT Scan Report ---
CT head/brain wo con CLINICAL HISTORY: ams Technique: Contiguous axial CT images of the head were acquired from the base of the skull to the randy isael without intravenous contrast administration. Images were viewed in brain[facility]. Automated dose lowering techniques and/or adjustment according to patient size were utilized for this exam. Comparison: Comparison is made to CT chest 07/20/2023 Findings: Areas of decreased attenuation are present in the periventricular and subcortical white matter bilate rally consistent with small vessel ischemic disease. Generalized cerebral atrophy with commensurate e nlargement of the ventricles, sulci, and cisterns is also present. There is no acute intracranial hem orrhage or evidence of acute territorial infarction. No shift of the midline structures, mass effect, or extra-axial abnormalities are shown. Atherosclerotic calcifications are present in the intracran ial segments of the internal carotid arteries. Imaged portions of the paranasal sinuses and mastoid air cells are clear. The orbits appear normal. There are no acute fractures of the calvaria or scalp swelling. Impression: No acute intracranial hemorrhage, no evidence of acute territorial infarction or other acute intracra nial disease process. ACT 112: Negative or not required by law. Electronically signed by: Matthew Simental M.D. 07/24/2023 3:43 PM
--- NOTE | 2023-07-24 15:49 | Electrocardiogram Report ---
Test Reason : Blood Pressure : / mmHG Vent. Rate : 115 BPM Atrial Rate : 115 BPM P-R Int : 126 ms QRS Dur : 090 ms QT Int : 314 ms P-R-T Axes : -08 019 007 degrees QTc Int : 434 ms Sinus tachycardia Poor R wave progression, consider anterior OR vs. lead placement vs. LVH Abnormal ECG When compared with ECG of 20-JUL-2023 16:40, Criteria for Septal infarct are no longer Present Confirmed by Amandeep Hinson ([id number]) on 07/24/2023 3:48:47 PM Referred By: REFERRED SELF Confirmed By:Amandeep Hinson
[2023-07-24] MEDS ORDERED: POTASSIUM CHLORIDE 20 MEQ/15 ML UDC PO STA (15:55)
[2023-07-24] MEDS: levoFLOXacin/D5W 750 MG/150 ML BAG IV SCH (17:35)
[2023-07-24] MEDS: THIAMINE HCL 500 MG in SODIUM CHLORIDE 0.9% 50 ML IV SCH ×2 (17:46→22:08)
[2023-07-24 20:52] LABS: Fluid Mono/Macrophage 79 %; Lymphocyte Body Fluid Man 11 %; Neutrophil Body Fluid Man 10 %
[2023-07-24] MEDS: NICOTINE 14 MG/24 HR PATCH TD SCH (22:06)
[2023-07-25 03:33] LABS: iSTAT Allen Test Pass; iSTAT Art Bld Gas pCO2 Correct 31 mmHg (35-46); iSTAT Art Bld Gas pH Corrected 7.447 (7.35-7.45); iSTAT Arterial Blood Gas HCO3 21 meg/L (19-24); iSTAT Arterial Blood Gas pCO2 31 mmHg (35-46); iSTAT Arterial Blood Gas pH 7.45 (7.35-7.45); iSTAT Arterial Blood Gas pO2 66 mmHg (80-95); iSTAT Arterial Blood Gas pO2 C 66; iSTAT Carbon Dioxide 22 mmol/L (24-31); iSTAT FiO2 40 %; iSTAT Hematocrit 25 % (37-47); iSTAT Hemoglobin 8.5 g/dl (12.0-16.0); iSTAT Potassium 3.5 mmol/L (3.3-5.0); iSTAT Site L Radial; iSTAT Sodium 127 mmol/L (135-144)
[2023-07-25 03:53] LABS: Hematocrit (blood only) 28.2 % (37.0-47.0); Hemoglobin 9.8 g/dl (12.0-16.0); Mean Corpuscular Hemoglobin 33.1 pg (25.0-34.0); Mean Corpuscular Hgb Conc 34.8 g/dL (32.0-36.0); Mean Corpuscular Volume 95.3 fL (80.0-100.0); Mean Platelet Volume 11.5 fL (9.4-12.4); Platelet Count 111 K/uL (130-400); RDW Coefficient of Variation 13.9 % (11.5-14.5); RDW Standard Deviation 49.1 fL (36.4-46.3); Red Blood Count 2.96 M/uL (4.20-5.40); White Blood Count 7.68 K/ul (4.8-10.8)
[2023-07-25 03:54] LABS: Acanthocytes 1+; Basophils # (auto) 0.04 K/uL (0.00-0.20); Basophils % (auto) 0.5 %; Eosinophils # (auto) 0.02 K/uL (0.00-0.50); Eosinophils % (auto) 0.3 %; Immature Granulocytes # (auto) 0.13 K/uL (0.01-0.20); Immature Granulocytes % (auto) 1.7 %; Lymphocytes # (auto) 0.25 K/uL (1.20-3.40); Lymphocytes % (auto) 3.3 %; Monocytes # (auto) 0.22 K/uL (0.11-0.59); Monocytes % (auto) 2.9 %; Neutrophils # (auto) 7.02 K/uL (1.40-6.50); Neutrophils % (auto) 91.3 %; Toxic Granulation 1+; Toxic Vacuolation 1+
[2023-07-25 03:56] LABS: Albumin Globulin Ratio 0.9 (0.9-2); Albumin Level 2.6 gm/dl (3.4-5.0); Bilirubin,Total 0.5 mg/dl (0.2-1.0); Calcium 7.6 mg/dl (8.6-10.3); Creatinine Clr Calc Pharmacy 52.3 ml/min; Est GFR (Non-African American) 57.8 ml/min; Globulin 2.8 gm/dl (2.5-4.0); Potassium 3.6 mmol/L (3.5-5.1); Total Protein 5.4 gm/dl (6.0-8.3)
[2023-07-25 04:01] LABS: ANTI-Xa, UFH(UnfractionatedHep < 0.10 IU/ml (0.3-0.7); Partial Thromboplastin Ratio 1.1; Partial Thromboplastin Time 30 Seconds (21-31)
[2023-07-25] MEDS: HEPARIN SODIUM/DEXTROSE 25,000 UNITS/500 ML BAG IV SCH ×2 (04:12→22:09)
[2023-07-25] MEDS: propofoL 1,000 MG/100 ML VIAL IV SCH ×4 (04:12→22:08)
[2023-07-25] MEDS ORDERED: GABAPENTIN 600 MG TAB PO SCH (06:00)
[2023-07-25] MEDS ORDERED: POTASSIUM CHLORIDE 20 MEQ/15 ML UDC PO STA (06:16)
[2023-07-25] MEDS: THIAMINE HCL 500 MG in SODIUM CHLORIDE 0.9% 50 ML IV SCH ×3 (07:38→20:56)
[2023-07-25] MEDS: MAGNESIUM SULFATE / D5W 1 GM/100 ML BAG IV SCH ×2 (07:38→09:31)
[2023-07-25] MEDS: IPRATROPIUM BROMIDE NEB SOLN 0.02% 2.5 ML VIAL INH SCH ×4 (07:47→20:21)
[2023-07-25] MEDS: LEVALBUTEROL 1.25 MG/3 ML NEB NEB SCH ×4 (07:47→20:22)
[2023-07-25] MEDS: SODIUM CHLOR 7% 4 ML NEB NEB SCH ×2 (07:47→20:22)
[2023-07-25] MEDS: PANTOprazole 40 MG TAB PO SCH (08:26)
[2023-07-25] MEDS: ACETAMINOPHEN 500 MG TAB PO PRN (08:26)
--- NOTE | 2023-07-25 08:34 | Procedure Note ---
Procedure Note: Bronchoscopy Procedure PREOPERATIVE DIAGNOSIS: Legionella pneumonia POSTOPERATIVE DIAGNOSIS: Legionella pneumonia PROCEDURE PERFORMED: Flexible fiberoptic bronchoscopy COMPLICATIONS: None. INDICATION: Clear airways PROCEDURE: Informed consent was obtained from the patient's . Timeout was performed directly prior to the procedure. Patient was on the ventilator and FiO2 was increased to 100% prior to the procedure. Bronchoscope was inserted via the endotracheal tube adapter. Endotracheal tube appeared to be appropriately positioned above the khurram. Bilateral tracheobronchial tree inspection was performed. Thick mucous plugs were noted in the left upper and left lower lobe. Saline was instilled in the left lower and left upper lobe of the lung. Secretions were seen and fluid was aspirated back to clear the airways. Mucoid impaction in the left lower lobes. Tissue in the left lower lobe appeared friable. No active bleeding seen. No lesions. During the right upper, right middle lobe and right lower lobe regions. Thin secretions were noted which were suctioned and. The scope was then removed. Patient tolerated the procedure well. Recommendations: Continue efforts at mucociliary clearance with percussive vest therapy and hypertonic saline. [facility] [place] (Charges) Pulmonary/Thoracic Procedure 1: Pulmonary and Thoracic: 50204 Bronchoscopy, reclear airway
--- NOTE | 2023-07-25 08:40 | Critical Care Progress Note ---
Date of Service July 25, 2023 Assessment & Plan (1) Community acquired pneumonia: (2) Pulmonary embolism: (3) Acute respiratory failure with hypoxia: (4) COPD (chronic obstructive pulmonary disease): (5) Immunocompromised state: Plan 58-year-old female with history of rheumatoid arthritis on chronic immunosuppressive therapy who presents to the ICU due to mental status change and hypoxemic respiratory failure. She was intubated 07/24/2023. I performed bronchoscopy today to clear out her airways and improve oxygenation. Her chest x-ray is pending. Urine Legionella came back positive and I changed her antibiotics to Levaquin 07/24/2023. Will continue with aggressive pulmonary toilet including hypertonic saline percussive vest therapy. Following sodium closely given hyponatremia from Legionella pneumonia. Continuing heparin infusion for high probability VQ scan concerning for pulmonary embolism. Defer diuretic therapy to nephrology. Sodium 127 today. Bronc cultures pending. CRITICAL CARE TIME - I have personally spent 39 minutes of critical care time in the direct management of this patient. This is a life/limb threatening event. This includes time spent evaluating patient, direct bedside care, chart review, placing orders, interpretation of diagnostic studies, discussion with consultants, patient, and family members, as well as other required patient management activities. This time is exclusive of all separately billable procedures, and teaching time and separate from and in addition to any other critical care service time. Admission and Anticipated Discharge Date Admission Date: July 20, 2023 Subjective Patient seen and examined. She remains on propofol and fentanyl. No acute events overnight. Maintained on minimal vent settings. Review of Systems Review of Systems: Unobtainable due to endotracheal tube Physical Exam Physical Exam: Constitutional: Patient appears to be of their stated age. Patient is in no apparent distress. Patient is well-developed. Eyes: Pupils are equal round and reactive to light. Conjunctivae are normal. Anicteric sclera. Ears nose, mouth and throat: Endotracheal tube in place. Neck: Trachea is midline. Visual inspection is normal. Respiratory: Rhonchi noted in the upper lung walker bilaterally. Cardiovascular: Regular rate and rhythm. No murmurs. No edema. Gastrointestinal: Normal bowel sounds, soft, nontender and nondistended. No hepatosplenomegaly noted. Musculoskeletal: No cyanosis. Patient is able to move all extremities. Strength is 5 out of 5 in the upper and lower extremities. Skin: No rashes, warm dry and intact. Neurologic: No obvious focal neurological deficits seen. Psychiatric: Unable to be assessed. Results & Data Results & Data Vital Signs (Past 12 Hours) Vital Signs Temp Pulse Resp BP Pulse Ox FiO2 07/25/23 08:10 38.8 C H 07/25/23 06:00 115 H 17 92 07/25/23 06:00 100/61 07/25/23 05:30 117 H 18 92 07/25/23 05:00 101/52 L 07/25/23 05:00 116 H 21 91 07/25/23 04:30 117 H 19 91 07/25/23 04:00 37.8 C H 117 H 21 92 07/25/23 04:00 120/59 L 07/25/23 03:00 103/59 L 07/25/23 03:00 103/59 L 07/25/23 03:00 117 H 23 91 07/25/23 02:58 117 H 22 91 40 07/25/23 02:00 36.6 C 102/66 07/25/23 02:00 118 H 21 92 07/25/23 01:30 117 H 25 H 93 07/25/23 01:00 117 H 22 93 07/25/23 01:00 110/55 L 07/25/23 00:30 116 H 23 93 07/25/23 00:00 117 H 24 95 07/25/23 00:00 104/54 L 07/24/23 23:30 117 H 24 95 07/24/23 23:00 104/66 07/24/23 23:00 120 H 22 93 07/24/23 23:00 119 H 23 94 40 07/24/23 22:30 120 H 24 95 07/24/23 22:01 122 H 23 95 07/24/23 22:01 95/62 L 07/24/23 22:00 120 H 23 90 07/24/23 21:30 123 H 27 H 95 07/24/23 21:00 135/66 07/24/23 21:00 121 H 22 94 07/24/23 20:47 113 H 26 H 95 40 Coding Level of Care Code 96566 CRITICAL CARE 1ST 30-74M Diagnoses Community acquired pneumonia of left upper lobe of lung J18.9 Laterality: left Lung location: upper lobe of lung Pulmonary embolism I26.99 Acute respiratory failure with hypoxia J96.01 COPD (chronic obstructive pulmonary disease) J44.9 COPD type: chronic bronchitis Immunocompromised state D84.9 Time Spent (min) 39 (1) Community acquired pneumonia Laterality: left Lung location: upper lobe of lung Qualified Code(s): J18.9 - Pneumonia, unspecified organism (4) COPD (chronic obstructive pulmonary disease) COPD type: chronic bronchitis
--- NOTE | 2023-07-25 08:50 | XRay Report ---
SINGLE VIEW CHEST CLINICAL HISTORY: Status post bronchoscopy.. FINDINGS: An AP, portable, upright chest radiograph is compared to study performed earlier the same d ay 07/25/2023. Correlation is made with chest CT dated 07/20/2023. The examination is degraded by yajaira ble technique and patient rotation. Endotracheal and enteric tubes are unchanged in position. The hea rt is enlarged. There is mild pulmonary vascular congestion. Emphysema and chronic interstitial thick ening is similar to previous. An accessory azygos fissure is incidentally noted. There is increasing airspace consolidation throughout the left lung. A left pleural effusion is again noted. The right jing ng appears clear noting basilar atelectasis. No pneumothorax is seen. The bony thorax is grossly inta ct. IMPRESSION: 1. Stable lines and tubes. 2. No pneumothorax is seen post procedure. 3. Increasing airspace consolidation to the left lung and persistent left pleural effusion. 4. Cardiomegaly and emphysema with mild pulmonary vascular congestion. . ACT 112: Negative or not required by law. Electronically signed by: Jake Dobbs M.D. 07/25/2023 8:49 AM
--- NOTE | 2023-07-25 09:32 | XRay Report ---
SINGLE VIEW CHEST CLINICAL HISTORY: Respiratory failure. Intubation. FINDINGS: An AP, portable, upright chest radiograph is compared to study dictated 07/24/2023. Correlat ion is made with chest CT dated 07/20/2023. The examination is degraded by portable technique and messi ent rotation. Endotracheal and enteric tubes are unchanged in position. The heart is enlarged. The pu lmonary vasculature is noncongested. Emphysema and chronic interstitial thickening is similar to prev ious. An accessory azygos fissure is incidentally noted. Airspace consolidation throughout the left m id to lower lung is similar to yesterday. A left pleural effusion is again noted. The right lung appe ars clear noting basilar atelectasis. No pneumothorax is seen. The bony thorax is grossly intact. IMPRESSION: 1. Stable lines and tubes. 2. Airspace consolidation throughout the left lung and a left pleural effusion is similar to yesterda y. 3. Cardiomegaly and emphysema. . ACT 112: Negative or not required by law. Electronically signed by: Jake Dobbs M.D. 07/25/2023 9:31 AM
[2023-07-25] MEDS ORDERED: STAT IV Infusion **Titration per Protocol STA ×2 (09:38→13:16)
[2023-07-25] MEDS ORDERED: ACETAMINOPHEN 325 MG TAB PO PRN (10:10)
[2023-07-25] MEDS: dexMEDEtomidine 200 MCG/50 ML BAG IV SCH ×5 (10:12→23:22)
[2023-07-25] MEDS: FUROSEMIDE INJ 20 MG/2 ML VIAL IV SCH (10:35)
[2023-07-25] MEDS: FOLIC ACID 1 MG TAB PO SCH (11:14)
--- NOTE | 2023-07-25 11:35 | Nephrology Progress Note ---
Date of Service July 25, 2023 Assessment & Plan Admission and Anticipated Discharge Date Admission Date: July 20, 2023 Subjective Assessment & Plan (1) Hyponatremia: Now found to have Legionella pneumonia. this would explain the hyponatremia. Severe Resp failure and now intubated . Would not give her iv fluid. Would still recommend to give some iv lasix as tolerated/Allowed S-Became More SOB. had bronch and then intubated and is in ICU. Na about stable 125--127 range. found to have Legionella Physical Exam Constitutional: intubated and on vent now + dry oral mucous membranes Neck: Supple no jvd Respiratory: Intubated/ b/l crackles and rhonchi Cardiovascular: RRR, no murmur, no edema Gastrointestinal (Abdomen): Inspection/Auscultation: normal bowel sounds Percussion/Palpation: abdomen soft; abdomen nontender Musculoskeletal: Extremities: strength 5/5 throughout Skin: no rashes, warm and dry Neurologic: Marked generalized weakness answers 1 yes or no question and falls asleep again Results & Data Vital Signs (Past 12 Hours) Vital Signs Temp Pulse Pulse Resp BP Pulse Ox O2 Del Method 07/25/23 10:38 07/25/23 10:00 126 H 14 95/58 L 91 07/25/23 09:05 Mechanical Vent 07/25/23 09:00 130 H 21 117/68 93 07/25/23 08:30 128 H 18 123/58 L 98 07/25/23 08:20 Mechanical Vent 07/25/23 08:10 38.8 C H 07/25/23 08:00 117 H 19 101/61 92 07/25/23 07:47 112 H 19 92 07/25/23 07:47 112 H 19 92 Mechanical Vent 07/25/23 07:00 114 H 14 91/62 L 92 07/25/23 06:00 115 H 17 92 07/25/23 06:00 100/61 07/25/23 05:30 117 H 18 92 07/25/23 05:00 101/52 L 07/25/23 05:00 116 H 21 91 07/25/23 04:30 117 H 19 91 07/25/23 04:00 37.8 C H 117 H 21 92 07/25/23 04:00 120/59 L 07/25/23 03:00 103/59 L 07/25/23 03:00 103/59 L 07/25/23 03:00 117 H 23 91 07/25/23 02:58 117 H 22 91 07/25/23 02:00 36.6 C 102/66 07/25/23 02:00 118 H 21 92 07/25/23 01:30 117 H 25 H 93 07/25/23 01:00 117 H 22 93 07/25/23 01:00 110/55 L 07/25/23 00:30 116 H 23 93 07/25/23 00:00 117 H 24 95 07/25/23 00:00 104/54 L FiO2 07/25/23 10:38 60 07/25/23 10:00 07/25/23 09:05 60 07/25/23 09:00 07/25/23 08:30 07/25/23 08:20 07/25/23 08:10 07/25/23 08:00 07/25/23 07:47 40 07/25/23 07:47 40 07/25/23 07:00 07/25/23 06:00 07/25/23 06:00 07/25/23 05:30 07/25/23 05:00 07/25/23 05:00 07/25/23 04:30 07/25/23 04:00 07/25/23 04:00 07/25/23 03:00 07/25/23 03:00 07/25/23 03:00 07/25/23 02:58 40 07/25/23 02:00 07/25/23 02:00 07/25/23 01:30 07/25/23 01:00 07/25/23 01:00 07/25/23 00:30 07/25/23 00:00 07/25/23 00:00
[2023-07-25] MEDS ORDERED: VECURONIUM BROMIDE 10 MG VIAL IV STA (13:16)
[2023-07-25] MEDS ORDERED: NOREPINEPHRINE/D5W 4 MG/250 ML IV ONE (13:17)
[2023-07-25] MEDS: NOREPINEPHRINE/D5W 4 MG/250 ML PLCT IV SCH (13:30)
--- NOTE | 2023-07-25 14:06 | Hospitalist Progress Note ---
Date of Service July 25, 2023 Assessment & Plan (1) Severe sepsis: (2) Sepsis: (3) Community acquired pneumonia: (4) Hyponatremia: (5) COPD exacerbation: (6) Encephalopathy: (7) Immunocompromised state: (8) Elevated troponin: (9) Abnormal liver enzymes: (10) Prediabetes: (11) Anxiety: Plan Pt is a 58yoF with PMHx significant for hypertension, PSVT, COPD, RA on immunosuppressive regimen, NAFLD, ADD/anxiety/mood disorder, cervical dysplasia, erythema nodosum, ongoing tobacco abuse admitted with sepsis in the setting of of pneumonia. Sepsis COPD exacerbation Pneumonia Pt with SOB from home WBC elevated at 14.68 on admission, has since become normal Chest xray concerning for pneumonia with opacities noted on the left CT chest with lingula consolidation- follow up CT chest recommended in 1-2 months to ensure resolution V/Q scan with indeterminate to high suspicion for PE- continue heparin at this time Sputum Cx with NGTD Blood Cx x 2 with NGTD Biofire negative, UA not suggestive of infection Pt immunocompromised Originally on Rocephin and doxycycline, broadened to Zosyn, switched doxy to azithromycin oxygen supplementation as needed, pt now with occasional increased oxygen need Pulmonology consult placed, appreciate recs -MRSA Screen negative -Legionella is positive -continue Zosyn, switch doxy to azithromycin -discontinue steroids -Hold all immunosuppressants -Start percussive vest therapy 4 times daily -start hypertonic saline twice daily -continue nebs QID -wean oxygen as tolerated with goal above 90% Condition has been deteriorating as of this morning She has been requiring BiPAP to maintain saturation More wheezing and shortness of breath this afternoon Will get ABG and chest x-ray Her condition got worse and she was transferred to ICU and put her on mechanical ventilator She remains stable on the machine Appreciate plastics supervisor input and recommendation Encephalopathy Possibly secondary to sepsis SIRS plus encephalopathy Head CT with no acute changes VBG on admission with low CO2 Hyponatremic, sodium 127 on admission- could be contributory Tox profile ordered for completion and to rule out a toxic cause-still pending Brain MRI unremarkable Consider Neurology consult if symptoms do not improve- pt more alert today Minimize use of narcotics for pain, receiving Ativan per AWSS protocol Hyponatremia Sodium 127 on admission Home bupropion possible contributory Hyponatremic workup, careful correction of sodium nephrology consult- appreciate recs IV fluid has been discontinued and the sodium level has not changed Lasix doses have been increased to 20 mg 3 times daily Will monitor PRP and electrolytes As Legionella pneumonia and likely the cause for hyponatremia Appreciate nephrology input and recommendation RA Immunocompromised status hx rheumatoid arthritis on immunosuppressive regimen Hold Arava and Rinvoq RA medications for now until patient recovers from infection Hold hydroxychloroquine Elevated Troponins hs-Trop elevated at 17.6 to 28.5 to 26.3 EKG with sinus tach Echo ordered with no acute changes Likely elevation of trop due to demand Livedo Reticularis Pt's with picture of rash Reticular pattern on lower extremities, states it comes and goes Was not present on lower extremities at time of exam today Associated with hypercoaguable states, vasculitis D-dimer ordered and elevated -lower extremity doppler with no DVT -V/Q scan with indeterminate to high suspicion for PE- continue heparin at this time Hypertension hx PSVT Continue home metoprolol and Diltiazem Hold home losartan Continue to monitor Blood pressure remains stable on the lower side Possible alcoholic hepatitis Abnormal LFTs Hx NAFLD Concern for alcohol abuse as per outpatient [facility] cardiology documentation last month Pt with episode on 07/21 noting she is anxious, having a headache, given one time dose of Ativan 0.5mg Concern for active withdrawal at this time AWSS at risk protocol switched to active protocol with Ativan, consider addition of gabapentin in the setting of encephalopathy DT precautions Continue to monitor for signs of alcohol withdrawal LFTs are stable and is mildly elevated-LFTs are almost normal ADD/anxiety/mood disorder Home bupropion on hold in setting of hyponatremia and encephalopathy Holding home lexapro Hyperglycemia Hgba1c of 5.7 indicating prediabetes Monitor Ongoing tobacco abuse Nicotine patch Encourage cessation Diet: Clear liquid DVT prophylaxis: Lovenox subcu Full code Dispo: PT/OT ordered Admission and Anticipated Discharge Date Admission Date: July 20, 2023 Subjective 07/24/2023 The patient was seen and examined in telemetry unit She remains drowsy but otherwise alert and awake Denies any significant complaints Has been on BiPAP and saturating normally 07/25/2023 The patient was seen and examined in ICU She remains ventilated and sedated Review of Systems Review of Systems: All systems reviewed and are unremarkable except as noted below Physical Exam Physical Exam: Remains stable on mechanical ventilation Constitutional: well developed, well nourished, + ill appearing and average body habitus Eyes: PERRL, conjunctivae normal, anicteric sclerae ENMT: external ear and nose normal, oropharynx normal Neck: trachea midline, no thyromegaly Respiratory: no respiratory distress Auscultation: + diminished lung sounds and + crackles (Occasional crackles at the bases) Cardiovascular: Rate/Rhythm: regular rate, regular rhythm and + tachycardic Heart Sounds: normal S1 and normal S2; no murmur Extremities: no edema Gastrointestinal (Abdomen): Inspection/Auscultation: normal bowel sounds; a bdomen not distended Percussion/Palpation: abdomen soft; abdomen nontender Musculoskeletal: No acutely inflamed joint Neurologic: Remains sedated Lymphatic: no cervical or axillary lymphadenopathy Results & Data Results & Data Vital Signs (Past 12 Hours) Vital Signs Temp Pulse Pulse Resp BP Pulse Ox O2 Del Method 07/25/23 12:17 37.7 C H 105 H 18 98/56 L 92 07/25/23 12:00 37.7 C H 108 H 33 H 86/51 L 93 07/25/23 11:36 111 H 18 93 07/25/23 11:36 111 H 18 93 Mechanical Vent 07/25/23 11:00 38.3 C H 117 H 17 99/59 L 92 07/25/23 10:38 07/25/23 10:00 126 H 14 95/58 L 91 07/25/23 09:35 125 H 13 92 07/25/23 09:20 07/25/23 09:05 Mechanical Vent 07/25/23 09:00 130 H 21 117/68 93 07/25/23 08:30 128 H 18 123/58 L 98 07/25/23 08:20 Mechanical Vent 07/25/23 08:10 38.8 C H 07/25/23 08:00 117 H 19 101/61 92 07/25/23 07:47 112 H 19 92 07/25/23 07:47 112 H 19 92 Mechanical Vent 07/25/23 07:00 114 H 14 91/62 L 92 07/25/23 06:00 115 H 17 92 07/25/23 06:00 100/61 07/25/23 05:30 117 H 18 92 07/25/23 05:00 101/52 L 07/25/23 05:00 116 H 21 91 07/25/23 04:30 117 H 19 91 07/25/23 04:00 37.8 C H 117 H 21 92 07/25/23 04:00 120/59 L 07/25/23 03:00 103/59 L 07/25/23 03:00 103/59 L 07/25/23 03:00 117 H 23 91 07/25/23 02:58 117 H 22 91 FiO2 07/25/23 12:17 07/25/23 12:00 07/25/23 11:36 50 07/25/23 11:36 50 07/25/23 11:00 07/25/23 10:38 60 07/25/23 10:00 07/25/23 09:35 60 07/25/23 09:20 60 07/25/23 09:05 60 07/25/23 09:00 07/25/23 08:30 07/25/23 08:20 07/25/23 08:10 07/25/23 08:00 07/25/23 07:47 40 07/25/23 07:47 40 07/25/23 07:00 07/25/23 06:00 07/25/23 06:00 07/25/23 05:30 07/25/23 05:00 07/25/23 05:00 07/25/23 04:30 07/25/23 04:00 07/25/23 04:00 07/25/23 03:00 07/25/23 03:00 07/25/23 03:00 07/25/23 02:58 40 Laboratory Results Short CBC 07/25/23 Range/Units 03:16 WBC 7.68 (4.8-10.8) K/ul Hgb 9.8 L (12.0-16.0) g/dl Hct 28.2 L (37.0-47.0) % Plt Count 111 L (130-400) K/uL BMP 07/24/23 07/25/23 14:57 03:16 Sodium 127 L 127 L Potassium 3.4 L 3.6 Chloride 95 L 97 L Carbon Dioxide 21 21 BUN 11 18 Creatinine 0.65 1.06 D Glucose 155 H 100 H Calcium 8.0 L 7.6 L Liver Function 07/25/23 Range/Units 03:16 Total Bilirubin 0.5 (0.2-1.0) mg/dl AST 47 H (13-39) U/L ALT 36 (7-52) U/L Alkaline Phosphatase 35 (34-104) U/L Albumin 2.6 L (3.4-5.0) gm/dl Medications Administered Current Inpatient Medications Acetaminophen (Acetaminophen 325 Mg Tab) 650 mg PO Q6H PRN PRN Reason: Fever or headache Stop: 08/20/23 08:00 Acetaminophen/Codeine Phosphate (Acetaminophen W/Codeine #3 1 Tab) 1 tab PO Q4H PRN PRN Reason: Pain Stop: 08/21/23 20:58 Last Admin: 07/23/23 08:48 Dose: 1 tab Calcium Citrate (Calcium Citrate 950 Mg Tab) 950 mg PO PC [facility] Stop: 08/21/23 17:59 Last Admin: 07/24/23 18:11 Dose: Not Given Diltiazem HCl (Diltiazem Hcl 240 Mg Capcr) 240 mg PO QAM [facility] Stop: 08/21/23 08:59 Last Admin: 07/24/23 09:49 Dose: Not Given Escitalopram Oxalate (Escitalopram Oxalate 10 Mg Tab) 15 mg PO QAM [facility] Stop: 08/20/23 08:59 Last Admin: 07/21/23 08:00 Dose: 15 mg Fentanyl Citrate (Fentanyl Bolus From Bag) 50 mcg IV Q60M PRN PRN Reason: Pain or Agitation Stop: 08/07/23 14:07 Last Admin: 07/24/23 15:06 Dose: 50 mcg Fexofenadine HCl (Fexofenadine Hcl 180 Mg Tab) 180 mg PO DAILY [facility]QU[facility]IN Stop: 08/20/23 08:59 Last Admin: 07/24/23 08:49 Dose: Not Given Folic Acid (Folic Acid 1 Mg Tab) 3 mg PO DAILY [facility] Stop: 08/20/23 08:59 Last Admin: 07/25/23 11:14 Dose: 3 mg Furosemide (Furosemide Inj 20 Mg/2 Ml Vial) 20 mg IV TIDPC [facility] Stop: 08/23/23 11:14 Last Admin: 07/25/23 10:35 Dose: Not Given Hydroxychloroquine Sulfate (Hydroxychloroquine Sulfate 200 Mg Tab) 300 mg PO HS [facility] Stop: 08/19/23 22:55 Last Admin: 07/21/23 22:42 Dose: 300 mg Heparin Sodium/Dextrose (Heparin Sodium/Dextrose) 25,000 units in 500 mls @ 14 mls/hr IV .Q24H [facility]; Protocol Stop: 08/20/23 20:14 Last Titration: 07/25/23 10:12 Dose: 700 units/hr, 14 mls/hr Propofol (Diprivan) 1,000 mg in 100 mls @ 0 mls/hr IV .Q0M [facility]; Protocol Stop: 07/27/23 14:14 Last Admin: 07/25/23 11:56 Dose: Not Given Fentanyl Citrate (Fentanyl Citrate) 2,500 mcg in 250 mls @ 7.5 mls/hr IV .[id number] [facility]; Protocol Stop: 08/07/23 14:14 Last Titration: 07/25/23 09:31 Dose: 75 mcg/hr, 7.5 mls/hr Thiamine HCl 500 mg/ Sodium (Chloride) 55 mls @ 210 mls/hr IV Q8H [facility] Stop: 07/27/24 15:00 Last Infusion: 07/25/23 09:31 Dose: Infused Levofloxacin/Dextrose (Levaquin/D5w) 750 mg in 150 mls @ 100 mls/hr IV Q24H [facility]; Protocol Stop: 07/31/23 16:59 Last Infusion: 07/24/23 19:05 Dose: Infused Dexmedetomidine/Sodium Chloride (Precedex) 200 mcg in 50 mls @ 10.185 mls/hr IV .Q4H55M [facility]; Protocol Stop: 07/29/23 09:44 Last Titration: 07/25/23 12:59 Dose: 0.6 mcg/kg/hr, 10.2 mls/hr Pantoprazole Sodium 40 mg/ (Syringe) 10 mls @ 5 mls/min IV DAILY@1100 [facility] Stop: 08/25/23 10:59 Norepinephrine Bitartrate (Levophed/D5w) 4 mg in 250 mls @ 12.731 mls/hr IV .[id number] [facility]; Protocol Stop: 08/24/23 13:29 Ipratropium Mead (Ipratropium Mead Neb Soln 0.02% 2.5 Ml Vial) 0.5 mg INH QIDR [facility] Stop: 08/20/23 06:59 Last Admin: 07/25/23 11:36 Dose: 0.5 mg Levalbuterol HCl (Levalbuterol 1.25 Mg/3 Ml Neb) 1.25 mg NEB QIDR [facility] Stop: 08/20/23 06:59 Last Admin: 07/25/23 11:36 Dose: 1.25 mg Metoprolol Succinate (Metoprolol Succ 25mg Ext Rel Tab) 25 mg PO DAILY [facility] Stop: 08/20/23 08:59 Last Admin: 07/24/23 08:48 Dose: Not Given Miscellaneous (Remove Nicoderm Patch) 1 each N/A DAILY@2058 [facility] Stop: 08/20/23 20:58 Last Admin: 07/24/23 22:05 Dose: 1 each Multivitamins (Multivitamin Tab) 1 tab PO QAM [facility] Stop: 08/20/23 08:59 Last Admin: 07/24/23 08:48 Dose: Not Given Nicotine (Nicotine 14 Mg/24 Hr Patch) 14 mg TD HS [facility] Stop: 08/19/23 20:29 Last Admin: 07/24/23 22:06 Dose: Not Given Pantoprazole Sodium (Pantoprazole 40 Mg Tab) 40 mg PO DAILYBB [facility] Stop: 08/20/23 06:29 Last Admin: 07/25/23 08:26 Dose: 40 mg Propofol (Propofol Bolus From Bag) 20 mg IV Q5M PRN PRN Reason: Sedation Stop: 07/27/23 14:07 Psyllium Hydrophilic Mucilloid (Psyllium Or Guar Gum Fiber Powder Packet) 1 pkt PO DAILY PRN PRN Reason: Constipation Stop: 08/19/23 23:41 Sodium Chloride (Sodium Chlor 7% 4 Ml Neb) 4 ml NEB BIDR [facility] Stop: 08/21/23 18:59 Last Admin: 07/25/23 07:47 Dose: 4 ml (3) Community acquired pneumonia Laterality: left Lung location: upper lobe of lung Qualified Code(s): J18.9 - Pneumonia, unspecified organism
--- NOTE | 2023-07-25 14:16 | Procedure Note ---
Procedure Note Date of Service July 25, 2023 Note INTERNAL JUGULAR CENTRAL LINE PROCEDURE NOTE: Procedure: Internal Jugular Central Line Placement Indication: Central Drug Administration, Poor Venous Access, Multiple Lab Draws Necessary, etc. Anesthesia: Precedex and fentanyl infusing at the time of the procedure/8 mL lidocaine 1% Consent was signed and placed on the chart prior to procedure. Indication, risks, and benefits were explained at length. A time-out was completed verifying correct patient, procedure, site, positioning, and implants(s) or special equipment if applicable. Patients right neck was cleansed and draped in the typical sterile fashion using Chloraprep. The Internal Jugular Vein and Carotid Artery were identified using ultrasound. The superficial tissue was anesthetized using 8 mL of 1% lidocaine without epinephrine under direct visualization with the ultrasound. After adequate anesthetization was achieved, the Internal Jugular vein was cannulated under direct ultrasound guidance using an introducer needle on a syringe. Good venous blood return was maintained prior to removal of syringe from introducer needle. Using Seldinger Technique, a guide wire was advanced through the introducer needle without resistance. The introducer needle was removed and ultrasound images were obtained of the guide wire within the Internal Jugular Vein and saved to the patients medical record. A small incision was made in penetrating fashion at the guide wire insertion site utilizing an 11 blade scalpel. The dilator was advanced to the vessel without resistance. The dilator was exchanged for the triple lumen catheter which was advanced into the vessel without resistance. The guide wire was removed intact from the catheter without issue. Claves were placed on each catheter tip with confirmation of good blood flow from each lumen. Each port was easily flushed with sterile saline. The catheter was placed at 17 cm and sut[address] in place. BioPatch was applied to the catheter and a sterile Tegaderm dressing was applied over the catheter with careful at tention to sterility. Patient tolerated procedure well. No immediate complications were met. Post procedure x-ray was was pending. Images obtained are saved for permanent record. Coding CPT Codes Tubes, Drains, and Vasc Access - Tubes, Drains, and Vasc Access: [id number] Place catheter in vein superior or inferior vena cava ([id number]) Tubes, Drains, and Vasc Access - Tubes, Drains, and Vasc Access: [id number] Ultrasound Guidance For Vascular ([id number]) [facility] [place] Procedure Codes (Charges) Tubes, Drains, and Vasc Access Procedure 1: Tubes, Drains, and Vasc Access: [id number] Place catheter in vein superior or inferior vena cava Procedure 2: Tubes, Drains, and Vasc Access: [id number] Ultrasound Guidance For Vascular
--- NOTE | 2023-07-25 14:18 | Procedure Note ---
Procedure Note Date of Service July 25, 2023 Note ARTERIAL LINE PROCEDURE NOTE: Procedure: Arterial Line Placement Indication: Monitoring on Pressors Anesthesia: Precedex and fentanyl infusing at the time of the procedure /8 mL lidocaine 1% Consent was signed and placed on the chart prior to procedure. Indication, risks, and benefits were explained at length. A time-out was completed verifying correct patient, procedure, site, positioning, and implant(s) or special equipment if applicable. Patients right wrist was prepped and draped in the usual sterile fashion. Ultrasound guidance was used to aid needle placement. A 20g Arrow arterial line was introduced into the right artery. Catheter was threaded, and the needle was removed with appropriate blood return. Good waveform was observed. The patient tolerated the procedure well. Blood Loss: Minimal Complications: None Coding CPT Codes Tubes, Drains, and Vasc Access - Tubes, Drains, and Vasc Access: [id number] Ultrasound Guidance For Vascular ([id number]) Tubes, Drains, and Vasc Access - Tubes, Drains, and Vasc Access: [id number] Arterial Cath/Cannulation Sampling/Monitoring/Transfusion ([id number]) [facility] [place] Procedure Codes (Charges) Tubes, Drains, and Vasc Access Procedure 1: Tubes, Drains, and Vasc Access: [id number] Ultrasound Guidance For Vascular Procedure 2: Tubes, Drains, and Vasc Access: [id number] Arterial Cath/Cannulation Sampling/Monitoring/Transfusion
--- NOTE | 2023-07-25 14:36 | XRay Report ---
SINGLE VIEW CHEST CLINICAL HISTORY: Respiratory failure. Intubation. Central venous catheter placement. FINDINGS: An AP, portable, upright chest radiograph is compared to studies performed earlier the same day 07/25/2023. Correlation is made with chest CT dated 07/20/2023. The examination is degraded by por table technique and patient rotation. Endotracheal and enteric tubes are unchanged in position. A rig ht internal jugular centimeters catheter is then placed. The tip of the catheter projects over the ri ght atrium. The heart is enlarged. The pulmonary vasculature is noncongested. Emphysema and chronic i nterstitial thickening is again noted. An accessory azygos fissure is incidentally noted. Airspace co nsolidation throughout the left mid to lower lung is again seen. Aeration of the left upper lobe is i mproved from today's earlier examination. A left pleural effusion is likely unchanged. The right bernice g appears clear noting basilar atelectasis. No pneumothorax is seen. The bony thorax is grossly intac t. IMPRESSION: 1. A right internal jugular central venous catheter has been placed. No pneumothorax is identified po st procedure. 2. Remaining lines and tubes are unchanged. 3. Airspace consolidation throughout the left lung and a left pleural effusion are again noted. Aerat ion of the left upper lobe has improved from today's earlier examination. 4. Cardiomegaly and emphysema. . ACT 112: Negative or not required by law. Electronically signed by: Jake Dobbs M.D. 07/25/2023 2:35 PM
--- NOTE | 2023-07-25 14:51 | Communication Note ---
Date of Service: July 25, 2023 Burning maneuver performed at 2:45 PM on 07/29/2023. Respiratory therapy, nursing, myself and critical care PA was present for the procedure. Patient was in a supine position and all lines were accounted for. Patient had blankets rolled up around her and then she was placed in a prone position. Patient's head and neck were placed in a swimmers position. Oxygenation improved status post proning. Patient tolerated the procedure well. Will repeat a blood gas after running for 30 minutes. Will leave the patient in the prone position for 16 to 20 hours. Coding Level of Care Code 09971 CRITICAL CARE 1ST 30-74M Time Spent (min) 21
[2023-07-25 15:05] LABS: iSTAT Art Bld Gas pCO2 Correct 57 mmHg (35-46); iSTAT Art Bld Gas pH Corrected 7.195 (7.35-7.45); iSTAT Arterial Blood Gas HCO3 22 meg/L (19-24); iSTAT Arterial Blood Gas pCO2 57 mmHg (35-46); iSTAT Arterial Blood Gas pO2 73 mmHg (80-95); iSTAT Arterial Blood Gas pO2 C 73; iSTAT Carbon Dioxide 24 mmol/L (24-31); iSTAT Hematocrit 27 % (37-47); iSTAT Hemoglobin 9.2 g/dl (12.0-16.0); iSTAT Potassium 4.8 mmol/L (3.3-5.0); iSTAT Site Art Line; iSTAT Sodium 127 mmol/L (135-144)
[2023-07-25 16:04] LABS: ANTI-Xa, UFH(UnfractionatedHep < 0.10 IU/ml (0.3-0.7)
[2023-07-25] MEDS ORDERED: HEPARIN SOD (PORCINE) 1000 UNIT/ML IV ONE (16:06)
[2023-07-25] MEDS: ACETAMINOPHEN 325 MG TAB PO PRN (16:56)
[2023-07-25] MEDS: levoFLOXacin/D5W 750 MG/150 ML BAG IV SCH (16:56)
[2023-07-25] MEDS: NICOTINE 14 MG/24 HR PATCH TD SCH (20:50)
[2023-07-25] MEDS: fentaNYL BOLUS from BAG IV PRN (23:00)
[2023-07-26] MEDS ORDERED: GABAPENTIN 600 MG TAB PO SCH
[2023-07-26] MEDS: ACETAMINOPHEN 325 MG TAB PO PRN ×3 (00:41→20:53)
[2023-07-26] MEDS ORDERED: GABAPENTIN 400 MG CAP PO SCH (02:15)
[2023-07-26] MEDS: dexMEDEtomidine 200 MCG/50 ML BAG IV SCH ×4 (02:31→12:10)
[2023-07-26] MEDS: fentaNYL BOLUS from BAG IV PRN ×3 (02:33→03:35)
[2023-07-26 04:55] LABS: iSTAT Art Bld Gas pCO2 Correct 41 mmHg (35-46); iSTAT Art Bld Gas pH Corrected 7.308 (7.35-7.45); iSTAT Arterial Blood Gas HCO3 20 meg/L (19-24); iSTAT Arterial Blood Gas pCO2 39 mmHg (35-46); iSTAT Arterial Blood Gas pH 7.32 (7.35-7.45); iSTAT Arterial Blood Gas pO2 61 mmHg (80-95); iSTAT Arterial Blood Gas pO2 C 65; iSTAT Carbon Dioxide 21 mmol/L (24-31); iSTAT Hematocrit 27 % (37-47); iSTAT Hemoglobin 9.2 g/dl (12.0-16.0); iSTAT Potassium 4.4 mmol/L (3.3-5.0); iSTAT Site Art Line; iSTAT Sodium 125 mmol/L (135-144)
[2023-07-26 04:55] LABS: iSTAT Art Bld Gas pCO2 Correct 36 mmHg (35-46); iSTAT Arterial Blood Gas HCO3 21 meg/L (19-24); iSTAT Arterial Blood Gas pCO2 35 mmHg (35-46); iSTAT Arterial Blood Gas pH 7.39 (7.35-7.45); iSTAT Arterial Blood Gas pO2 66 mmHg (80-95); iSTAT Arterial Blood Gas pO2 C 71; iSTAT Carbon Dioxide 22 mmol/L (24-31); iSTAT Hematocrit 27 % (37-47); iSTAT Hemoglobin 9.2 g/dl (12.0-16.0); iSTAT Potassium 3.9 mmol/L (3.3-5.0); iSTAT Site Art Line; iSTAT Sodium 128 mmol/L (135-144)
[2023-07-26 04:55] LABS: iSTAT Art Bld Gas pCO2 Correct 33 mmHg (35-46); iSTAT Art Bld Gas pH Corrected 7.388 (7.35-7.45); iSTAT Arterial Blood Gas HCO3 20 meg/L (19-24); iSTAT Arterial Blood Gas pCO2 32 mmHg (35-46); iSTAT Arterial Blood Gas pO2 87 mmHg (80-95); iSTAT Arterial Blood Gas pO2 C 92; iSTAT Carbon Dioxide 21 mmol/L (24-31); iSTAT Hematocrit 26 % (37-47); iSTAT Hemoglobin 8.8 g/dl (12.0-16.0); iSTAT Site Art Line; iSTAT Sodium 129 mmol/L (135-144)
[2023-07-26] MEDS: THIAMINE HCL 500 MG in SODIUM CHLORIDE 0.9% 50 ML IV SCH ×3 (05:03→22:55)
[2023-07-26] MEDS: fentaNYL citrate 2,500 MCG/250 ML BAG IV SCH ×2 (05:40→19:26)
[2023-07-26 07:05] LABS: ANTI-Xa, UFH(UnfractionatedHep < 0.10 IU/ml (0.3-0.7)
[2023-07-26 07:13] LABS: Albumin Globulin Ratio 0.9 (0.9-2); Albumin Level 2.5 gm/dl (3.4-5.0); BUN Creatinine Ratio 27.1 (10-20); Bilirubin,Total 0.5 mg/dl (0.2-1.0); Calcium 8.1 mg/dl (8.6-10.3); Creatinine Clr Calc Pharmacy 55.3 ml/min; Est GFR (African American) 75.6 ml/min; Est GFR (Non-African American) 65.2 ml/min; Globulin 2.9 gm/dl (2.5-4.0); Magnesium 2.4 mg/dl (1.7-2.4); Phosphorus 3.7 mg/dl (2.5-4.9); Potassium 4.1 mmol/L (3.5-5.1); Total Protein 5.4 gm/dl (6.0-8.3)
[2023-07-26 07:15] LABS: Hematocrit (blood only) 27.5 % (37.0-47.0); Hemoglobin 9.4 g/dl (12.0-16.0); Mean Corpuscular Hgb Conc 34.2 g/dL (32.0-36.0); Mean Corpuscular Volume 96.5 fL (80.0-100.0); Mean Platelet Volume 10.9 fL (9.4-12.4); Platelet Count 117 K/uL (130-400); RDW Coefficient of Variation 14.3 % (11.5-14.5); RDW Standard Deviation 50.6 fL (36.4-46.3); Red Blood Count 2.85 M/uL (4.20-5.40)
[2023-07-26 07:16] LABS: Basophils # (auto) 0.03 K/uL (0.00-0.20); Basophils % (auto) 0.3 %; Dohle Bodies 1+; Eosinophils # (auto) 0.08 K/uL (0.00-0.50); Eosinophils % (auto) 0.9 %; Immature Granulocytes # (auto) 0.21 K/uL (0.01-0.20); Immature Granulocytes % (auto) 2.4 %; Lymphocytes # (auto) 0.34 K/uL (1.20-3.40); Monocytes # (auto) 0.29 K/uL (0.11-0.59); Monocytes % (auto) 3.4 %; Neutrophils # (auto) 7.65 K/uL (1.40-6.50); Toxic Granulation 2+; Toxic Vacuolation 1+
[2023-07-26] MEDS: SODIUM CHLOR 7% 4 ML NEB NEB SCH ×2 (07:30→20:45)
[2023-07-26] MEDS: LEVALBUTEROL 1.25 MG/3 ML NEB NEB SCH ×4 (07:30→20:44)
[2023-07-26] MEDS: IPRATROPIUM BROMIDE NEB SOLN 0.02% 2.5 ML VIAL INH SCH ×4 (07:30→20:44)
[2023-07-26] MEDS ORDERED: HEPARIN IV BOLUS 4,000 UNITS in SYRINGE 0 ML IV ONE (07:30)
--- NOTE | 2023-07-26 08:48 | Critical Care Progress Note ---
Date of Service July 26, 2023 Assessment & Plan (1) Community acquired pneumonia: (2) Pulmonary embolism: (3) Acute respiratory failure with hypoxia: (4) COPD (chronic obstructive pulmonary disease): (5) Immunocompromised state: Plan 58-year-old female with history of rheumatoid arthritis on chronic immunosuppressive therapy who presents to the ICU due to mental status change and hypoxemic respiratory failure. She was intubated 07/24/2023. Patient is status post proning for 16 hours. Oxygen requirements and PEEP requirements have improved significantly. She is now on 30% FiO2. Will repeat a chest x-ray today and if the infiltrate is improving, may potentially perform an SBT and extubate. Her urine Legionella antigen did come back positive. Will continue Levaquin for total of 14 days. PJP PCR from BAL and Aspergillus is pending. We are holding immunosuppressive medications. Sodium is improving likely due to resolving Legionella pneumonia. Continue high-dose thiamine for total 3 days. Continue pantoprazole for GI prophylaxis. Continue airway clear ance therapy with hypertonic saline and percussive therapy. Hold antihypertensives while intubated and sedated. Continue heparin infusion for likely PE. Hemoglobin has remained stable. CRITICAL CARE TIME - I have personally spent 47 minutes of critical care time in the direct management of this patient. This is a life/limb threatening event. This includes time spent evaluating patient, direct bedside care, chart review, placing orders, interpretation of diagnostic studies, discussion with consultants, patient, and family members, as well as other required patient management activities. This time is exclusive of all separately billable procedures, and teaching time and separate from and in addition to any other critical care service time. Admission and Anticipated Discharge Date Admission Date: July 20, 2023 Subjective Patient seen and examined. She did very well overnight while prone. She was placed in a supine position this morning at around 840. She remains on Precedex and fentanyl. She has not required Levophed. Review of Systems Review of Systems: Unobtainable due to endotracheal tube Physical Exam Physical Exam: Constitutional: Patient appears to be of their stated age. Patient is in no apparent distress. Patient is well-developed. Eyes: Pupils are equal round and reactive to light. Conjunctivae are normal. Anicteric sclera. Ears nose, mouth and throat: Endotracheal tube in place. Neck: Trachea is midline. Visual inspection is normal. Respiratory: Rhonchi noted in the upper lung walker bilaterally. Cardiovascular: Regular rate and rhythm. No murmurs. No edema. Gastrointestinal: Normal bowel sounds, soft, nontender and nondistended. No hepatosplenomegaly noted. Musculoskeletal: No cyanosis. Patient is able to move all extremities. Strength is 5 out of 5 in the upper and lower extremities. Skin: No rashes, warm dry and intact. Neurologic: No obvious focal neurological deficits seen. Psychiatric: Unable to be assessed. Results & Data Results & Data Vital Signs (Past 12 Hours) Vital Signs Temp Pulse Resp BP Pulse Ox O2 Del Method FiO2 07/26/23 07:58 Mechanical Vent 07/26/23 06:01 37.3 C 84 20 95 07/26/23 06:00 142/91 H 07/26/23 05:59 37.3 C 84 19 95 07/26/23 05:00 37.6 C H 84 20 135/88 96 07/26/23 04:15 91 H 23 95 30 07/26/23 04:00 37.9 C H 89 18 134/95 95 07/26/23 03:00 38.2 C H 90 19 143/88 H 94 07/26/23 02:44 30 07/26/23 02:00 38.7 C H 90 16 131/78 94 Mechanical Vent 07/26/23 01:00 38.7 C H 89 17 102/81 93 Mechanical Vent 07/26/23 00:30 100 H 07/26/23 00:00 38.3 C H 95 H 20 135/83 94 Mechanical Vent 07/26/23 00:00 30 07/25/23 23:30 98 H 23 95 30 07/25/23 23:29 30 07/25/23 23:29 Mechanical Vent 30 07/25/23 23:00 38.1 C H 97 H 24 153/92 H 97 07/25/23 22:00 37.9 C H 103 H 21 166/97 H 95 07/25/23 21:38 99 H 07/25/23 21:00 38.0 C H 106 H 19 137/102 H 95 Coding Level of Care Code 37714 CRITICAL CARE 1ST 30-74M Diagnoses Community acquired pneumonia of left upper lobe of lung J18.9 Laterality: left Lung location: upper lobe of lung Pulmonary embolism I26.99 Acute respiratory failure with hypoxia J96.01 COPD (chronic obstructive pulmonary disease) J44.9 COPD type: chronic bronchitis Immunocompromised state D84.9 Time Spent (min) 47 (1) Community acquired pneumonia Laterality: left Lung location: upper lobe of lung Qualified Code(s): J18.9 - Pneumonia, unspecified organism (4) COPD (chronic obstructive pulmonary disease) COPD type: chronic bronchitis
--- NOTE | 2023-07-26 09:07 | XRay Report ---
XR chest 1V portable HISTORY: Respiratory failure. follow up pna COMPARISON: Chest 07/25/2023. FINDINGS: The endotracheal tube terminates 2.8 cm from the khurram. A nasogastric tube terminates belo w the diaphragm. The tip is not included on this study. Right jugular central venous catheter termina dimitris at the distal SVC. This remains unchanged. No pneumothorax. The heart is stable in size. Incident al note is made of a small right azygos lobe. Left lung airspace opacities persist. IMPRESSION: 1. Satisfactory support line placement. 2. Left lung airspace opacities persist and likely represent a pneumonia. ACT 112: Negative or not required by law. Electronically signed by: Lito Dias M.D. 07/26/2023 9:05 AM
[2023-07-26] MEDS: FOLIC ACID 1 MG TAB PO SCH (09:33)
[2023-07-26] MEDS ORDERED: PEPTAMEN 1.5 CAL 1,000 ML BAG OG SCH (10:30)
[2023-07-26] MEDS: PANTOprazole 40 MG in SYRINGE 0 ML IV SCH (10:43)
--- NOTE | 2023-07-26 11:09 | Nephrology Progress Note ---
Date of Service July 26, 2023 Assessment & Plan Admission and Anticipated Discharge Date Admission Date: July 20, 2023 Subjective Assessment & Plan (1) Hyponatremia: Now found to have Legionella pneumonia. this would explain the hyponatremia. na is now up to 132 ( On strict FFR currently given Intubation) and likely imprving Legionella Pneumonia. Severe Resp failure and now intubated . Would not give her iv fluid. Would still recommend to give some iv lasix as tolerated/Allowed S-Still intubated and is in ICU. Na went up to 132. Currently NPO/Intubated. BP is fine. made 1015 ml urine yesterday. Physical Exam Constitutional: intubated and on vent now + dry oral mucous membranes Neck: Supple no jvd Respiratory: Intubated/ b/l crackles and rhonchi Cardiovascular: RRR, no murmur, no edema Gastrointestinal (Abdomen): Inspection/Auscultation: normal bowel sounds Percussion/Palpation: abdomen soft; abdomen nontender Musculoskeletal: Extremities: strength 5/5 throughout Skin: no rashes, warm and dry Neurologic: Marked generalized weakness answers 1 yes or no question and falls asleep again Results & Data Vital Signs (Past 12 Hours) Vital Signs Temp Pulse Resp BP Pulse Ox O2 Del Method FiO2 07/26/23 07:58 Mechanical Vent 07/26/23 07:30 86 21 94 30 07/26/23 06:01 37.3 C 84 20 95 07/26/23 06:00 142/91 H 07/26/23 05:59 37.3 C 84 19 95 07/26/23 05:00 37.6 C H 84 20 135/88 96 07/26/23 04:15 91 H 23 95 30 07/26/23 04:00 37.9 C H 89 18 134/95 95 07/26/23 03:00 38.2 C H 90 19 143/88 H 94 07/26/23 02:44 30 07/26/23 02:00 38.7 C H 90 16 131/78 94 Mechanical Vent 07/26/23 01:00 38.7 C H 89 17 102/81 93 Mechanical Vent 07/26/23 00:30 100 H 07/26/23 00:00 38.3 C H 95 H 20 135/83 94 Mechanical Vent 07/26/23 00:00 30 07/25/23 23:30 98 H 23 95 30 07/25/23 23:29 30 07/25/23 23:29 Mechanical Vent 30
[2023-07-26] MEDS: propofoL 1,000 MG/100 ML VIAL IV SCH ×2 (12:59→19:34)
[2023-07-26] MEDS: TUBE FEEDING WATER FLUSH OG SCH ×4 (13:00→22:55)
[2023-07-26 14:48] LABS: ANTI-Xa, UFH(UnfractionatedHep 0.13 IU/ml (0.3-0.7)
[2023-07-26] MEDS ORDERED: HEPARIN IV BOLUS 2,000 UNITS in SYRINGE 0 ML IV ONE (15:30)
[2023-07-26] MEDS: levoFLOXacin/D5W 750 MG/150 ML BAG IV SCH (16:20)
--- NOTE | 2023-07-26 17:03 | Hospitalist Progress Note ---
Date of Service July 26, 2023 Assessment & Plan (1) Severe sepsis: (2) Sepsis: (3) Community acquired pneumonia: (4) Hyponatremia: (5) COPD exacerbation: (6) Encephalopathy: (7) Immunocompromised state: (8) Elevated troponin: (9) Abnormal liver enzymes: (10) Prediabetes: (11) Anxiety: Plan Pt is a 58yoF with PMHx significant for hypertension, PSVT, COPD, RA on immunosuppressive regimen, NAFLD, ADD/anxiety/mood disorder, cervical dysplasia, erythema nodosum, ongoing tobacco abuse admitted with sepsis in the setting of of pneumonia. Sepsis COPD exacerbation Pneumonia Pt with SOB from home WBC elevated at 14.68 on admission, has since become normal Chest xray concerning for pneumonia with opacities noted on the left CT chest with lingula consolidation- follow up CT chest recommended in 1-2 months to ensure resolution V/Q scan with indeterminate to high suspicion for PE- continue heparin at this time Sputum Cx with NGTD Blood Cx x 2 with NGTD Biofire negative, UA not suggestive of infection Pt immunocompromised Originally on Rocephin and doxycycline, broadened to Zosyn, switched doxy to azithromycin oxygen supplementation as needed, pt now with occasional increased oxygen need Pulmonology consult placed, appreciate recs -MRSA Screen negative -Legionella is positive -continue Zosyn, switch doxy to azithromycin -discontinue steroids -Hold all immunosuppressants -Start percussive vest therapy 4 times daily -start hypertonic saline twice daily -continue nebs QID -wean oxygen as tolerated with goal above 90% Condition has been deteriorating as of this morning She has been requiring BiPAP to maintain saturation More wheezing and shortness of breath this afternoon Will get ABG and chest x-ray Her condition got worse and she was transferred to ICU and put her on mechanical ventilator She remains stable on the machine Appreciate processing assistant input and recommendation Condition has not changed-we will continue current management Encephalopathy Possibly secondary to sepsis SIRS plus encephalopathy Head CT with no acute changes VBG on admission with low CO2 Hyponatremic, sodium 127 on admission- could be contributory Tox profile ordered for completion and to rule out a toxic cause-still pending Brain MRI unremarkable Consider Neurology consult if symptoms do not improve- pt more alert today Minimize use of narcotics for pain, receiving Ativan per AWSS protocol Hyponatremia Sodium 127 on admission Home bupropion possible contributory Hyponatremic workup, careful correction of sodium nephrology consult- appreciate recs IV fluid has been discontinued and the sodium level has not changed Lasix doses have been increased to 20 mg 3 times daily Will monitor PRP and electrolytes As Legionella pneumonia and likely the cause for hyponatremia Appreciate nephrology input and recommendation Sodium level is improved to 132 as of 07/26/2023 RA Immunocompromised status hx rheumatoid arthritis on immunosuppressive regimen Hold Arava and Rinvoq RA medications for now until patient recovers from infection Hold hydroxychloroquine Elevated Troponins hs-Trop elevated at 17.6 to 28.5 to 26.3 EKG with sinus tach Echo ordered with no acute changes Likely elevation of trop due to demand Livedo Reticularis Pt's with picture of rash Reticular pattern on lower extremities, states it comes and goes Was not present on lower extremities at time of exam today Associated with hypercoaguable states, vasculitis D-dimer ordered and elevated -lower extremity doppler with no DVT -V/Q scan with indeterminate to high suspicion for PE- continue heparin at this time Hypertension hx PSVT Continue home metoprolol and Diltiazem Hold home losartan Continue to monitor Blood pressure remains stable on the lower side Possible alcoholic hepatitis Abnormal LFTs Hx NAFLD Concern for alcohol abuse as per outpatient [facility] cardiology documentation last month Pt with episode on 07/21 noting she is anxious, having a headache, given one time dose of Ativan 0.5mg Concern for active withdrawal at this time AWSS at risk protocol switched to active protocol with Ativan, consider addition of gabapentin in the setting of encephalopathy DT precautions Continue to monitor for signs of alcohol withdrawal LFTs are stable and is mildly elevated-LFTs are almost normal LFTs have been normalized ADD/anxiety/mood disorder Home bupropion on hold in setting of hyponatremia and encephalopathy Holding home lexapro Hyperglycemia Hgba1c of 5.7 indicating prediabetes Monitor Ongoing tobacco abuse Nicotine patch Encourage cessation Diet: Clear liquid DVT prophylaxis: Lovenox subcu Full code Dispo: PT/OT ordered Prognosis remains guarded Admission and Anticipated Discharge Date Admission Date: July 20, 2023 Subjective 07/24/2023 The patient was seen and examined in telemetry unit She remains drowsy but otherwise alert and awake Denies any significant complaints Has been on BiPAP and saturating normally 07/25/2023 The patient was seen and examined in ICU She remains ventilated and sedated 07/26/2023 The patient was seen and examined in ICU in presence of the She remains intubated and sedated Review of Systems Review of Systems: All systems reviewed and are unremarkable except as noted below Physical Exam Physical Exam: Remains stable on mechanical ventilation Constitutional: well developed, well nourished, + ill appearing and average body habitus Eyes: PERRL, conjunctivae normal, anicteric sclerae ENMT: external ear and nose normal, oropharynx normal Neck: trachea midline, no thyromegaly Respiratory: no respiratory distress Auscultation: + diminished lung sounds and + crackles (Occasional crackles at the bases) Cardiovascular: Rate/Rhythm: regular rate, regular rhythm and + tachycardic Heart Sounds: normal S1 and normal S2; no murmur Extremities: no edema Gastrointestinal (Abdomen): Inspection/Auscultation: normal bowel sounds; abdomen not distended Percussion/Palpation: abdomen soft; abdomen nontender Neurologic: Remains sedated Lymphatic: no cervical or axillary lymphadenopathy Results & Data Results & Data Vital Signs (Past 12 Hours) Vital Signs Temp Pulse Resp BP Pulse Ox O2 Del Method FiO2 07/26/23 16:00 38.1 C H 104 H 19 93 07/26/23 16:00 30 07/26/23 15:00 38.3 C H 99 H 20 91 07/26/23 14:00 38.4 C H 97 H 19 90 07/26/23 13:00 38.5 C H 97 H 24 92 07/26/23 12:42 30 07/26/23 12:00 38.7 C H 92 H 20 100 07/26/23 11:45 97 H 21 92 30 07/26/23 11:00 38.8 C H 97 H 24 93 07/26/23 10:00 38.1 C H 74 20 90 07/26/23 09:00 37.6 C H 93 H 26 H 97 07/26/23 08:00 37.2 C 93 H 20 133/81 95 07/26/23 07:58 Mechanical Vent 07/26/23 07:30 86 21 94 30 07/26/23 07:00 80 07/26/23 07:00 37.1 C 79 20 133/89 95 07/26/23 06:01 37.3 C 84 20 95 07/26/23 06:00 142/91 H 07/26/23 05:59 37.3 C 84 19 95 Laboratory Results Short CBC 07/26/23 Range/Units 06:26 WBC 8.60 (4.8-10.8) K/ul Hgb 9.4 L (12.0-16.0) g/dl Hct 27.5 L (37.0-47.0) % Plt Count 117 L (130-400) K/uL BMP 07/26/23 06:26 Sodium 132 L Potassium 4.1 Chloride 102 Carbon Dioxide 21 BUN 26 H Creatinine 0.96 Glucose 102 H Calcium 8.1 L Liver Function 07/26/23 Range/Units 06:26 Total Bilirubin 0.5 (0.2-1.0) mg/dl AST 35 (13-39) U/L ALT 27 (7-52) U/L Alkaline Phosphatase 42 (34-104) U/L Albumin 2.5 L (3.4-5.0) gm/dl Medications Administered Current Inpatient Medications Acetaminophen (Acetaminophen 325 Mg Tab) 650 mg PO Q6H PRN PRN Reason: Fever or headache Stop: 08/20/23 08:00 Last Admin: 07/26/23 10:43 Dose: 650 mg Acetaminophen/Codeine Phosphate (Acetaminophen W/Codeine #3 1 Tab) 1 tab PO Q4H PRN PRN Reason: Pain Stop: 08/21/23 20:58 Last Admin: 07/23/23 08:48 Dose: 1 tab Calcium Citrate (Calcium Citrate 950 Mg Tab) 950 mg PO PC [facility] Stop: 08/21/23 17:59 Last Admin: 07/24/23 18:11 Dose: Not Given Diltiazem HCl (Diltiazem Hcl 240 Mg Capcr) [facility] Stop: 08/21/23 08:59 Last Admin: 07/24/23 09:49 Dose: Not Given Enteral Nutritional Formula (Peptamen 1.5 Henri 1,000 Ml Bag) 1,000 ml OG UD [facility]; Protocol Stop: 08/25/23 10:29 Last Admin: 07/26/23 13:45 Dose: 1,000 ml Escitalopram Oxalate (Escitalopram Oxalate 10 Mg Tab) [facility] Stop: 08/20/23 08:59 Last Admin: 07/21/23 08:00 Dose: 15 mg Fentanyl Citrate (Fentanyl Bolus From Bag) 50 mcg IV Q60M PRN PRN Reason: Pain or Agitation Stop: 08/07/23 14:07 Last Admin: 07/26/23 03:35 Dose: 50 mcg Fexofenadine HCl (Fexofenadine Hcl 180 Mg Tab) 180 mg PO DAILY [facility] Stop: 08/20/23 08:59 Last Admin: 07/24/23 08:49 Dose: Not Given Folic Acid (Folic Acid 1 Mg Tab) 3 mg PO DAILY [facility] Stop: 08/20/23 08:59 Last Admin: 07/26/23 09:33 Dose: 3 mg Furosemide (Furosemide Inj 20 Mg/2 Ml Vial) 20 mg IV TIDPC [facility] Stop: 08/23/23 11:14 Last Admin: 07/25/23 10:35 Dose: Not Given Hydroxychloroquine Sulfate (Hydroxychloroquine Sulfate 200 Mg Tab) 300 mg PO HS [facility] Stop: 08/19/23 22:55 Last Admin: 07/21/23 22:42 Dose: 300 mg Heparin Sodium/Dextrose (Heparin Sodium/Dextrose) 25,000 units in 500 mls @ 20 mls/hr IV .Q24H [facility]; Protocol Stop: 08/20/23 20:14 Last Titration: 07/26/23 15:30 Dose: 1,000 units/hr, 20 mls/hr Propofol (Diprivan) 1,000 mg in 100 mls @ 12.222 mls/hr IV .Q8H11M [facility]; Protocol Stop: 07/27/23 14:14 Last Titration: 07/26/23 15:30 Dose: 30 mcg/kg/min, 12.2 mls/hr Fentanyl Citrate (Fentanyl Citrate) 2,500 mcg in 250 mls @ 12.5 mls/hr IV .Q20H [facility]; Protocol Stop: 08/07/23 14:14 Last Titration: 07/26/23 15:30 Dose: 125 mcg/hr, 12.5 mls/hr Thiamine HCl 500 mg/ Sodium (Chloride) 55 mls @ 210 mls/hr IV Q8H [facility] Stop: 07/27/24 15:00 Last Admin: 07/26/23 16:20 Dose: 210 mls/hr Levofloxacin/Dextrose (Levaquin/D5w) 750 mg in 150 mls @ 100 mls/hr IV Q24H [facility]; Protocol Stop: 07/31/23 16:59 Last Admin: 07/26/23 16:20 Dose: 100 mls/hr Dexmedetomidine/Sodium Chloride (Precedex) 200 mcg in 50 mls @ 0 mls/hr IV .Q0M [facility]; Protocol Stop: 07/29/23 09:44 Last Titration: 07/26/23 12:59 Dose: 0 mcg/kg/hr, 0 mls/hr Pantoprazole Sodium 40 mg/ (Syringe) 10 mls @ 5 mls/min IV DAILY@1100 [facility] Stop: 08/25/23 10:59 Last Admin: 07/26/23 10:43 Dose: 5 mls/min Norepinephrine Bitartrate (Levophed/D5w) 4 mg in 250 mls @ 12.731 mls/hr IV .[id number] [facility]; Protocol Stop: 08/24/23 13:29 Last Titration: 07/26/23 12:45 Dose: 0.05 mcg/kg/min, 12.7 mls/hr Ipratropium Maiden (Ipratropium Maiden Neb Soln 0.02% 2.5 Ml Vial) 0.5 mg INH [facility] Stop: 08/20/23 06:59 Last Admin: 07/26/23 15:02 Dose: 0.5 mg Levalbuterol HCl (Levalbuterol 1.25 Mg/3 Ml Neb) 1.[address] [facility] Stop: 08/20/23 06:59 Last Admin: 07/26/23 15:02 Dose: 1.25 mg Metoprolol Succinate (Metoprolol Succ 25mg Ext Rel Tab) 25 mg PO DAILY [facility] Stop: 08/20/23 08:59 Last Admin: 07/24/23 08:48 Dose: Not Given Miscellaneous (Remove Nicoderm Patch) 1 each N/A DAILY@2058 [facility] Stop: 08/20/23 20:58 Last Admin: 07/25/23 20:41 Dose: 1 each Multivitamins (Multivitamin Tab) 1 tab PO QAM [facility] Stop: 08/20/23 08:59 Last Admin: 07/24/23 08:48 Dose: Not Given Nicotine (Nicotine 14 Mg/24 Hr Patch) 14 mg TD HS [facility] Stop: 08/19/23 20:29 Last Admin: 07/25/23 20:50 Dose: 14 mg Pantoprazole Sodium (Pantoprazole 40 Mg Tab) 40 mg PO DAILYBB [facility] Stop: 08/20/23 06:29 Last Admin: 07/25/23 08:26 Dose: 40 mg Propofol (Propofol Bolus From Bag) 20 mg IV Q5M PRN PRN Reason: Sedation Stop: 07/27/23 14:07 Psyllium Hydrophilic Mucilloid (Psyllium Or Guar Gum Fiber Powder Packet) 1 pkt PO DAILY PRN PRN Reason: Constipation Stop: 08/19/23 23:41 Sodium Chloride (Sodium Chlor 7% 4 Ml Neb) 4 ml NEB BIDR [facility] Stop: 08/21/23 18:59 Last Admin: 07/26/23 07:30 Dose: 4 ml Sterile Water (Tube Feeding Water Flush) 30 ml OG Q4H [facility] Stop: 08/25/23 10:29 Last Admin: 07/26/23 16:21 Dose: 30 ml (3) Community acquired pneumonia Laterality: left Lung location: upper lobe of lung Qualified Code(s): J18.9 - Pneumonia, unspecified organism
[2023-07-26] MEDS: HEPARIN SODIUM/DEXTROSE 25,000 UNITS/500 ML BAG IV SCH (19:27)
[2023-07-26] MEDS: methylPREDNISolone 40 MG in SYRINGE 0 ML IV SCH (20:13)
[2023-07-26 21:00] LABS: ANTI-Xa, UFH(UnfractionatedHep 0.12 IU/ml (0.3-0.7)
[2023-07-26] MEDS: NICOTINE 14 MG/24 HR PATCH TD SCH (21:06)
[2023-07-26] MEDS ORDERED: HEPARIN SOD (PORCINE) 1000 UNIT/ML IV ONE (22:00)
[2023-07-27] MEDS: NOREPINEPHRINE/D5W 4 MG/250 ML PLCT IV SCH ×2 (00:02→14:00)
[2023-07-27] MEDS: methylPREDNISolone 40 MG in SYRINGE 0 ML IV SCH (01:57)
[2023-07-27] MEDS ORDERED: diphenhydrAMINE 50 MG/ML VIAL IV ONE (02:00)
[2023-07-27] MEDS ORDERED: OPTIRAY 320 125ml IV ONE (03:13)
[2023-07-27] MEDS: TUBE FEEDING WATER FLUSH OG SCH ×4 (03:54→14:00)
[2023-07-27 04:38] LABS: ANTI-Xa, UFH(UnfractionatedHep 0.16 IU/ml (0.3-0.7)
[2023-07-27 04:51] LABS: Magnesium 2.5 mg/dl (1.7-2.4)
[2023-07-27] MEDS: propofoL 1,000 MG/100 ML VIAL IV SCH ×2 (06:07→17:33)
[2023-07-27] MEDS: THIAMINE HCL 500 MG in SODIUM CHLORIDE 0.9% 50 ML IV SCH (06:08)
[2023-07-27] MEDS ORDERED: HEPARIN IV BOLUS 2,000 UNITS in SYRINGE 0 ML IV ONE (06:15)
--- NOTE | 2023-07-27 06:34 | CT Scan Report ---
CT ANGIOGRAPHY OF THE CHEST, PULMONARY EMBOLUS PROTOCOL CLINICAL HISTORY: Shortness of breath. Evaluate for pulmonary embolus. COMPARISON STUDY: Chest CT July 20, 2023 and chest radiograph July 26, 2023. TECHNIQUE: Patient was premedicated for IV dye allergy. Following IV administration of 118 mL of Opti ray, helical axial images of the chest were obtained utilizing the pulmonary embolus protocol. Maxim al intensity projections and sagittal and coronal reformats were viewed on an independent 3D workstat ion. IV contrast was administered without complication. Automated exposure control was utilized for the study. A dose lowering technique was utilized adhering to the principles of ALARA. CT DOSE: 589.87 mGy.cm FINDINGS: No pulmonary emboli are identified although the segmental and subsegmental pulmonary arter ies are suboptimally assessed due to respiratory motion. There is no thoracic aortic dissection. Tip of endotracheal tube is 1 cm above the khurram. Tip of nasogastric tube is within the stomach. Right i nternal jugular central line is in place. There is mild cardiomegaly. There is no pericardial effusio n. Prominent AP window lymph node is again noted. There has been significant progression of dense lef t upper lobe consolidation since CT of July 20, 2023. Extensive left lower lobe airspace opacity w ith volume loss has developed. A small left pleural effusion has developed. There is no central obstr ucting mass. No cavitation is present. Mild right lower lobe subpleural opacities have developed. The re are severe underlying emphysema. No pneumothorax is present. Body wall edema has developed. IMPRESSION: 1. No pulmonary emboli identified although segmental and subsegmental pulmonary arteries suboptimally assessed due to respiratory motion. 2. Significant progression of extensive left upper lobe consolidation since CT of July 20, 2023. T his is consistent with pneumonia. Interval development of extensive left lower lobe airspace opacity with volume loss. This could reflect additional site of pneumonia or atelectasis. Mild right lower lo be opacity which favors an infectious process. 3. Satisfactory positioning of the endotracheal tube. 4. Small left pleural effusion which has developed since prior CT. 5. Severe emphysema. ACT 112: Negative or not required by law. Electronically signed by: Ebenezer Carroll M.D. 07/27/2023 6:32 AM
[2023-07-27] MEDS: LEVALBUTEROL 1.25 MG/3 ML NEB NEB SCH ×4 (07:57→20:06)
[2023-07-27] MEDS: SODIUM CHLOR 7% 4 ML NEB NEB SCH ×2 (07:57→20:06)
[2023-07-27] MEDS: IPRATROPIUM BROMIDE NEB SOLN 0.02% 2.5 ML VIAL INH SCH ×4 (07:57→20:06)
[2023-07-27 08:46] LABS: Hematocrit (blood only) 26.5 % (37.0-47.0); Hemoglobin 8.7 g/dl (12.0-16.0); Mean Corpuscular Hemoglobin 32.6 pg (25.0-34.0); Mean Corpuscular Hgb Conc 32.8 g/dL (32.0-36.0); Mean Corpuscular Volume 99.3 fL (80.0-100.0); Mean Platelet Volume 11.6 fL (9.4-12.4); Platelet Count 124 K/uL (130-400); RDW Coefficient of Variation 14.7 % (11.5-14.5); RDW Standard Deviation 53.7 fL (36.4-46.3); Red Blood Count 2.67 M/uL (4.20-5.40); White Blood Count 9.99 K/ul (4.8-10.8)
[2023-07-27 08:51] LABS: BUN Creatinine Ratio 34.3 (10-20); Calcium 8.2 mg/dl (8.6-10.3); Creatinine Clr Calc Pharmacy 76.1 ml/min; Est GFR (African American) 110.7 ml/min; Est GFR (Non-African American) 95.5 ml/min; Potassium 4.6 mmol/L (3.5-5.1)
[2023-07-27 09:32] LABS: Basophils # (auto) 0.04 K/uL (0.00-0.20); Basophils % (auto) 0.4 %; Eosinophils # (auto) 0.02 K/uL (0.00-0.50); Eosinophils % (auto) 0.2 %; Immature Granulocytes # (auto) 0.21 K/uL (0.01-0.20); Immature Granulocytes % (auto) 2.1 %; Lymphocytes # (auto) 0.35 K/uL (1.20-3.40); Lymphocytes % (auto) 3.5 %; Monocytes # (auto) 0.28 K/uL (0.11-0.59); Monocytes % (auto) 2.8 %; Neutrophils # (auto) 9.09 K/uL (1.40-6.50); RBC Morphology Unremarkable
--- NOTE | 2023-07-27 09:55 | Procedure Note ---
Procedure Note Date of Service July 27, 2023 Note Procedure: Diagnostic and/therapeutic ultrasound-guided catheter thoracentesis Ladle Liner Helper: Dr. Juancarlos Moody Indication: Pleural effusion Consent: Signed by patient and verified with timeout prior to procedure Anesthesia: 8 mL's of 1% lidocaine without epinephrine given locally Procedure: Consent was verified and timeout performed. Appropriate imaging studies were reviewed prior to the procedure. Patient was placed in a left lateral decubitus position and limited thoracic ultrasound was performed of the left chest. See separate imaging. The site appropriate for thoracentesis was selected. The skin was prepped and draped in normal sterile fashion. Lidocaine was used for local analgesia. Fluid was aspirated via the finder needle. A small skin deepti was made with the scalpel and the catheter over the needle apparatus was advanced over the rib into the pleural space. Using the syringe one-way valve system, a total of 500 mL's of yellow color fluid was removed. Procedure was terminated due to lack of flow. The catheter was removed and observed to be intact. A sterile dressing was applied. Post procedure chest x-ray was ordered. Fluid was sent for LDH, total protein, cell count, glucose, pH, cytology, AFB cultures, gram stain and culture and fungal cultures. The patient tolerated the procedure well without obvious complication Coding CPT Codes Pulmonary/Thoracic - Pulmonary and Thoracic: 49970 Thoracentesis w imaging ([id number]) [facility] Procedure Codes (Charges) Pulmonary/Thoracic Procedure 1: Pulmonary and Thoracic: 73706 Thoracentesis w imaging
--- NOTE | 2023-07-27 10:21 | Critical Care Progress Note ---
Date of Service July 27, 2023 Assessment & Plan (1) Community acquired pneumonia: (2) Pulmonary embolism: (3) Acute respiratory failure with hypoxia: (4) COPD (chronic obstructive pulmonary disease): (5) Immunocompromised state: (6) Pleural effusion: Plan 58-year-old female with history of rheumatoid arthritis on chronic immunosuppressive therapy who presents to the ICU due to mental status change and hypoxemic respiratory failure. She was intubated 07/24/2023. Thus far blood cultures and sputum cultures have been negative to date. Repeat blood cultures from overnight are pending due to ongoing fever. She had a chest CTA completed last night to evaluate for PE which was negative. She does have progression of the left lower lobe infiltrate. She also had a moderate-sized left pleural effusion. I performed a thoracentesis today which will be sent for cultures and cytology. Parapneumonic effusion remains a possibility. Discontinue the heparin drip at this time. Continue Levaquin for Legionella pneumonia based on the urine Legionella antigen. Procalcitonin is very elevated at 6.54. PJP PCR Aspergillus antigen pending. Will repeat MRSA screen. Her sodium levels continue to improve. She is currently on an SBT. I am anticipating extubation. Pressors have been weaned off. Right IJ central line and right radial arterial line remain in place. CRITICAL CARE TIME - I have personally spent 41 minutes of critical care time in the direct managem ent of this patient. This is a life/limb threatening event. This includes time spent evaluating patient, direct bedside care, chart review, placing orders, interpretation of diagnostic studies, discussion with consultants, patient, and family members, as well as other required patient management activities. This time is exclusive of all separately billable procedures, and teaching time and separate from and in addition to any other critical care service time. Admission and Anticipated Discharge Date Admission Date: July 20, 2023 Subjective Patient seen and examined. She has been weaned off sedation and is currently on a spontaneous breathing trial. She is doing well. I performed a left-sided thoracentesis today and removed 500 mL of pleural fluid which was sent to the lab. Patient denies any complaints. She is anxious and would like a breathing tube out. She had some fevers overnight blood cultures were drawn from her central line and peripheral blood. Review of Systems Review of Systems: All systems reviewed & are unremarkable except as noted in HPI & below Physical Exam Physical Exam: Constitutional: Patient appears to be of their stated age. Patient is in no apparent distress. Patient is well-developed. Eyes: Pupils are equal round and reactive to light. Conjunctivae are normal. Anicteric sclera. Ears nose, mouth and throat: Endotracheal tube in place. Neck: Trachea is midline. Visual inspection is normal. Respiratory: Rhonchi noted in the upper lung walker bilaterally. Cardiovascular: Regular rate and rhythm. No murmurs. No edema. Gastrointestinal: Normal bowel sounds, soft, nontender and nondistended. No hepatosplenomegaly noted. Musculoskeletal: No cyanosis. Patient is able to move all extremities. Strength is 5 out of 5 in the upper and lower extremities. Skin: No rashes, warm dry and intact. Neurologic: No obvious focal neurological deficits seen. Psychiatric: Anxious appearing. Results & Data Results & Data Vital Signs (Past 12 Hours) Vital Signs Temp Pulse Resp BP Pulse Ox FiO2 07/27/23 09:18 88 21 94 30 07/27/23 08:00 36.4 C L 82 21 134/79 95 07/27/23 07:00 36.4 C L 74 20 106/66 95 07/27/23 06:00 36.4 C L 77 20 107/64 95 07/27/23 05:30 36.4 C L 78 20 94 07/27/23 05:00 36.3 C L 76 20 110/63 94 07/27/23 04:30 36.3 C L 77 20 94 07/27/23 04:00 36.5 C 80 20 104/64 92 07/27/23 03:49 86 20 95 35 07/27/23 03:34 36.5 C 90 16 155/86 H 98 07/27/23 03:30 85 24 81 L 07/27/23 03:23 88 21 97 07/27/23 03:00 35 07/27/23 02:30 36.5 C 80 19 97 07/27/23 02:00 36.6 C 81 20 132/84 96 07/27/23 01:30 36.7 C 87 20 97 07/27/23 01:00 36.8 C 85 19 125/78 96 07/27/23 00:30 36.9 C 83 19 96 07/27/23 00:14 91 H 07/27/23 00:00 37.0 C 89 19 141/79 H 94 07/26/23 23:40 109 H 21 96 35 07/26/23 23:30 37.3 C 93 H 20 94 07/26/23 23:00 37.7 C H 98 H 21 138/82 94 07/26/23 23:00 35 07/26/23 22:30 38.1 C H 102 H 18 112/70 93 07/26/23 22:24 38.2 C H 103 H 20 121/69 94 Coding Level of Care Code 02403 CRITICAL CARE 1ST 30-74M Diagnoses Community acquired pneumonia of left upper lobe of lung J18.9 Laterality: left Lung location: upper lobe of lung Pulmonary embolism I26.99 Acute respiratory failure with hypoxia J96.01 COPD (chronic obstructive pulmonary disease) J44.9 COPD type: chronic bronchitis Immunocompromised state D84.9 Pleural effusion J90 Time Spent (min) 41 (1) Community acquired pneumonia Laterality: left Lung location: upper lobe of lung Qualified Code(s): J18.9 - Pneumonia, unspecified organism (4) COPD (chronic obstructive pulmonary disease) COPD type: chronic bronchitis
[2023-07-27] MEDS ORDERED: FUROSEMIDE 40 MG/4 ML VIAL IV ONE (10:24)
--- NOTE | 2023-07-27 10:29 | Nephrology Progress Note ---
Date of Service July 27, 2023 Assessment & Plan (1) Hyponatremia: Plan: Patient with hyponatremia likely due to hypervolemia. Sodium is improving to 134 today. Patient remains intubated. Continue Lasix as needed Admission and Anticipated Discharge Date Admission Date: July 20, 2023 Subjective Seen for hyponatremia. Patient remains intubated and and sedated. Review of Systems 2 Review of Systems: Unable to obtain due to intubation Physical Exam 2 Physical Exam: General exam: Intubated and sedated, no acute distress HEENT: Pupils are equal and reactive to light Neck: No JVD, Respiratory system: Clear breath sounds bilaterally. Gastrointestinal: Abdomen is soft, non distended, non tender, bowel sounds are present CVS: Regular rate and rhythm. No murmurs, rubs or gallops Musculoskeletal: No joint or muscle tenderness Extremities: Non tender, no edema, peripheral pulses are present Neuro: Intubated and minimally responsive Skin: No rashes Results & Data Vital Signs (Past 12 Hours) Vital Signs Temp Pulse Resp BP Pulse Ox FiO2 07/27/23 09:18 88 21 94 30 07/27/23 08:00 36.4 C L 82 21 134/79 95 07/27/23 07:00 36.4 C L 74 20 106/66 95 07/27/23 06:00 36.4 C L 77 20 107/64 95 07/27/23 05:30 36.4 C L 78 20 94 07/27/23 05:00 36.3 C L 76 20 110/63 94 07/27/23 04:30 36.3 C L 77 20 94 07/27/23 04:00 36.5 C 80 20 104/64 92 07/27/23 03:49 86 20 95 35 07/27/23 03:34 36.5 C 90 16 155/86 H 98 07/27/23 03:30 85 24 81 L 07/27/23 03:23 88 21 97 07/27/23 03:00 35 07/27/23 02:30 36.5 C 80 19 97 07/27/23 02:00 36.6 C 81 20 132/84 96 07/27/23 01:30 36.7 C 87 20 97 07/27/23 01:00 36.8 C 85 19 125/78 96 07/27/23 00:30 36.9 C 83 19 96 07/27/23 00:14 91 H 07/27/23 00:00 37.0 C 89 19 141/79 H 94 07/26/23 23:40 109 H 21 96 35 07/26/23 23:30 37.3 C 93 H 20 94 07/26/23 23:00 37.7 C H 98 H 21 138/82 94 07/26/23 23:00 35 07/26/23 22:30 38.1 C H 102 H 18 112/70 93 Laboratory Results 07/27/23 04:15 07/27/23 07/27/23 04:15 04:16 WBC 9.99 RBC 2.67 L MCV 99.3 MCH 32.6 MCHC 32.8 RDW Std Deviation 53.7 H RDW Coeff of Ilia 14.7 H Plt Count 124 L MPV 11.6 Phosphorus 4.0
[2023-07-27] MEDS: FOLIC ACID 1 MG TAB PO SCH (10:33)
--- NOTE | 2023-07-27 11:02 | XRay Report ---
XR chest 1V portable HISTORY: Status post left thoracentesis. COMPARISON: Chest 07/26/2023. FINDINGS: Endotracheal tube terminates 6 in relation the khurram. Nasogastric tube terminates below th e diaphragm. The tip is not included on this study. A right jugular central venous catheter terminati ng at the distal SVC. This remains unchanged. The right lung is essentially clear. No pneumothorax. S mall left pleural effusion has decreased in size with. Left lung airspace opacities persist. The hear t remains stable in size. IMPRESSION: 1. Satisfactory support line placement. 2. Left lung airspace opacities persist. 3. Small left pleural effusion has decreased in size. No pneumothorax ACT 112: Negative or not required by law. Electronically signed by: Lito Dias M.D. 07/27/2023 11:00 AM
[2023-07-27 11:15] LABS: Total Protein Pleural Fluid 3.8 gm/dl
--- NOTE | 2023-07-27 11:42 | Hospitalist Progress Note ---
Date of Service July 27, 2023 Assessment & Plan (1) Severe sepsis: (2) Sepsis: (3) Community acquired pneumonia: (4) Hyponatremia: (5) COPD exacerbation: (6) Encephalopathy: (7) Immunocompromised state: (8) Elevated troponin: (9) Abnormal liver enzymes: (10) Prediabetes: (11) Anxiety: Plan Pt is a 58yoF with PMHx significant for hypertension, PSVT, COPD, RA on immunosuppressive regimen, NAFLD, ADD/anxiety/mood disorder, cervical dysplasia, erythema nodosum, ongoing tobacco abuse admitted with sepsis in the setting of of pneumonia. Sepsis COPD exacerbation Pneumonia Pt with SOB from home WBC elevated at 14.68 on admission, has since become normal Chest xray concerning for pneumonia with opacities noted on the left CT chest with lingula consolidation- follow up CT chest recommended in 1-2 months to ensure resolution V/Q scan with indeterminate to high suspicion for PE- continue heparin at this time Sputum Cx with NGTD Blood Cx x 2 with NGTD Biofire negative, UA not suggestive of infection Pt immunocompromised Originally on Rocephin and doxycycline, broadened to Zosyn, switched doxy to azithromycin oxygen supplementation as needed, pt now with occasional increased oxygen need Pulmonology consult placed, appreciate recs -MRSA Screen negative -Legionella is positive -continue Zosyn, switch doxy to azithromycin -discontinue steroids -Hold all immunosuppressants -Start percussive vest therapy 4 times daily -start hypertonic saline twice daily -continue nebs QID -wean oxygen as tolerated with goal above 90% Condition has been deteriorating as of this morning She has been requiring BiPAP to maintain saturation More wheezing and shortness of breath this afternoon Will get ABG and chest x-ray Her condition got worse and she was transferred to ICU and put her on mechanical ventilator She remains stable on the machine Appreciate wildland fire fighter specialist input and recommendation Status post left thoracentesis of 500 mL yellow-colored fluid-sent for studies Plan to extubate in a day or 2 Encephalopathy Possibly secondary to sepsis SIRS plus encephalopathy Head CT with no acute changes VBG on admission with low CO2 Hyponatremic, sodium 127 on admission- could be contributory Tox profile ordered for completion and to rule out a toxic cause-still pending Brain MRI unremarkable Consider Neurology consult if symptoms do not improve- pt more alert today Minimize use of narcotics for pain, receiving Ativan per AWSS protocol Hyponatremia Sodium 127 on admission Home bupropion possible contributory Hyponatremic workup, careful correction of sodium nephrology consult- appreciate recs IV fluid has been discontinued and the sodium level has not changed Lasix doses have been increased to 20 mg 3 times daily Will monitor PRP and electrolytes As Legionella pneumonia and likely the cause for hyponatremia Appreciate nephrology input and recommendation Sodium level is improved to 132 as of 07/26/2023 Sodium level is up to 134 today RA Immunocompromised status hx rheumatoid arthritis on immunosuppressive regimen Hold Arava and Rinvoq RA medications for now until patient recovers from infection Hold hydroxychloroquine Elevated Troponins hs-Trop elevated at 17.6 to 28.5 to 26.3 EKG with sinus tach Echo ordered with no acute changes Likely elevation of trop due to demand Livedo Reticularis Pt's with picture of rash Reticular pattern on lower extremities, states it comes and goes Was not present on lower extremities at time of exam today Associated with hypercoaguable states, vasculitis D-dimer ordered and elevated -lower extremity doppler with no DVT -V/Q scan with indeterminate to high suspicion for PE- continue heparin at this time Hypertension hx PSVT Continue home metoprolol and Diltiazem Hold home losartan Continue to monitor Blood pressure remains stable on the lower side Possible alcoholic hepatitis Abnormal LFTs Hx NAFLD Concern for alcohol abuse as per outpatient [facility] cardiology documentation last month Pt with episode on 07/21 noting she is anxious, having a headache, given one time dose of Ativan 0.5mg Concern for active withdrawal at this time AWSS at risk protocol switched to active protocol with Ativan, consider addition of gabapentin in the setting of encephalopathy DT precautions Continue to monitor for signs of alcohol withdrawal LFTs are stable and is mildly elevated-LFTs are almost normal LFTs have been normalized ADD/anxiety/mood disorder Home bupropion on hold in setting of hyponatremia and encephalopathy Holding home lexapro Hyperglycemia Hgba1c of 5.7 indicating prediabetes Monitor Ongoing tobacco abuse Nicotine patch Encourage cessation Diet: Clear liquid DVT prophylaxis: Lovenox subcu Full code Dispo: PT/OT ordered Prognosis remains guarded Admission and Anticipated Discharge Date Admission Date: July 20, 2023 Subjective 07/24/2023 The patient was seen and examined in telemetry unit She remains drowsy but otherwise alert and awake Denies any significant complaints Has been on BiPAP and saturating normally 07/25/2023 The patient was seen and examined in ICU She remains ventilated and sedated 07/26/2023 The patient was seen and examined in ICU in presence of the She remains intubated and sedated 07/27/2023 The patient was seen and examined in ICU in presence of the She remains intubated and sedated Has had left thoracentesis today and has been requiring minimal sedation Review of Systems Review of Systems: Unobtainable due to endotracheal tube Physical Exam Physical Exam: Remains stable on mechanical ventilation Constitutional: well developed, well nourished, + ill appearing and average body habitus Eyes: PERRL, conjunctivae normal, anicteric sclerae ENMT: external ear and nose normal, oropharynx normal Neck: trachea midline, no thyromegaly Respiratory: no respiratory distress Auscultation: + diminished lung sounds and + crackles (Occasional crackles at the bases) Cardiovascular: Rate/Rhythm: regular rate, regular rhythm and + tachycardic Heart Sounds: normal S1 and normal S2; no murmur Extremities: no edema Gastrointestinal (Abdomen): Inspection/Auscultation: normal bowel sounds; abdomen not distended Percussion/Palpation: abdomen soft; abdomen nontender Musculoskeletal: No acutely inflamed joint Lymphatic: no cervical or axillary lymphadenopathy Results & Data Results & Data Vital Signs (Past 12 Hours) Vital Signs Temp Pulse Resp BP Pulse Ox FiO2 07/27/23 09:18 88 21 94 30 07/27/23 08:00 36.4 C L 82 21 134/79 95 07/27/23 07:00 36.4 C L 74 20 106/66 95 07/27/23 06:00 36.4 C L 77 20 107/64 95 07/27/23 05:30 36.4 C L 78 20 94 07/27/23 05:00 36.3 C L 76 20 110/63 94 07/27/23 04:30 36.3 C L 77 20 94 07/27/23 04:00 36.5 C 80 20 104/64 92 07/27/23 03:49 86 20 95 35 07/27/23 03:34 36.5 C 90 16 155/86 H 98 07/27/23 03:30 85 24 81 L 07/27/23 03:23 88 21 97 07/27/23 03:00 35 07/27/23 02:30 36.5 C 80 19 97 07/27/23 02:00 36.6 C 81 20 132/84 96 07/27/23 01:30 36.7 C 87 20 97 07/27/23 01:00 36.8 C 85 19 125/78 96 07/27/23 00:30 36.9 C 83 19 96 07/27/23 00:14 91 H 07/27/23 00:00 37.0 C 89 19 141/79 H 94 07/26/23 23:40 109 H 21 96 35 Laboratory Results Short CBC 07/27/23 Range/Units 04:16 WBC 9.99 (4.8-10.8) K/ul Hgb 8.7 L (12.0-16.0) g/dl Hct 26.5 L (37.0-47.0) % Plt Count 124 L (130-400) K/uL BMP 07/27/23 04:15 Sodium 134 L Potassium 4.6 Chloride 104 Carbon Dioxide 19 L BUN 24 H Creatinine 0.70 Glucose 215 H Calcium 8.2 L Medications Administered Current Inpatient Medications Acetaminophen (Acetaminophen 325 Mg Tab) 650 mg PO Q6H PRN PRN Reason: Fever or headache Stop: 08/20/23 08:00 Last Admin: 07/26/23 20:53 Dose: 650 mg Acetaminophen/Codeine Phosphate (Acetaminophen W/Codeine #3 1 Tab) 1 tab PO Q4H PRN PRN Reason: Pain Stop: 08/21/23 20:58 Last Admin: 07/23/23 08:48 Dose: 1 tab Calcium Citrate (Calcium Citrate 950 Mg Tab) 950 mg PO PC [facility] Stop: 08/21/23 17:59 Last Admin: 07/24/23 18:11 Dose: Not Given Diltiazem HCl (Diltiazem Hcl 240 Mg Capcr) 240 mg PO QAM [facility] Stop: 08/21/23 08:59 Last Admin: 07/24/23 09:49 Dose: Not Given Enteral Nutritional Formula (Peptamen 1.5 Henri 1,000 Ml Bag) 1,000 ml OG UD [facility]; Protocol Stop: 08/25/23 10:29 Last Admin: 07/26/23 13:45 Dose: 1,000 ml Escitalopram Oxalate (Escitalopram Oxalate 10 Mg Tab) 15 mg PO QAM [facility] Stop: 08/20/23 08:59 Last Admin: 07/21/23 08:00 Dose: 15 mg Fentanyl Citrate (Fentanyl Bolus From Bag) 50 mcg IV Q60M PRN PRN Reason: Pain or Agitation Stop: 08/07/23 14:07 Last Admin: 07/26/23 03:35 Dose: 50 mcg Fexofenadine HCl (Fexofenadine Hcl 180 Mg Tab) 180 mg PO DAILY [facility] Stop: 08/20/23 08:59 Last Admin: 07/24/23 08:49 Dose: Not Given Folic Acid (Folic Acid 1 Mg Tab) 3 mg PO DAILY [facility] Stop: 08/20/23 08:59 Last Admin: 07/27/23 10:33 Dose: Not Given Furosemide (Furosemide Inj 20 Mg/2 Ml Vial) 20 mg IV TIDPC [facility] Stop: 08/23/23 11:14 Last Admin: 07/25/23 10:35 Dose: Not Given Hydroxychloroquine Sulfate (Hydroxychloroquine Sulfate 200 Mg Tab) 300 mg PO HS [facility] Stop: 08/19/23 22:55 Last Admin: 07/21/23 22:42 Dose: 300 mg Propofol (Diprivan) 1,000 mg in 100 mls @ 10.185 mls/hr IV .Q9H50M [facility]; Protocol Stop: 07/27/23 14:14 Last Admin: 07/27/23 06:07 Dose: 25 mcg/kg/min, 10.2 mls/hr Fentanyl Citrate (Fentanyl Citrate) 2,500 mcg in 250 mls @ 10 mls/hr IV .Q25H [facility]; Protocol Stop: 08/07/23 14:14 Last Admin: 07/26/23 19:26 Dose: 100 mcg/hr, 10 mls/hr Levofloxacin/Dextrose (Levaquin/D5w) 750 mg in 150 mls @ 100 mls/hr IV Q24H [facility]; Protocol Stop: 07/31/23 16:59 Last Infusion: 07/26/23 21:09 Dose: Infused Pantoprazole Sodium 40 mg/ (Syringe) 10 mls @ 5 mls/min IV DAILY@1100 [facility] Stop: 08/25/23 10:59 Last Admin: 07/26/23 10:43 Dose: 5 mls/min Norepinephrine Bitartrate (Levophed/D5w) 4 mg in 250 mls @ 0 mls/hr IV .Q0M [facility]; Protocol Stop: 08/24/23 13:29 Last Titration: 07/27/23 04:08 Dose: 0 mcg/kg/min, 0 mls/hr Ipratropium [place] (Ipratropium [place] Neb Soln 0.02% 2.5 Ml Vial) 0.5 mg INH QIDR [facility] Stop: 08/20/23 06:59 Last Admin: 07/27/23 11:12 Dose: 0.5 mg Levalbuterol HCl (Levalbuterol 1.25 Mg/3 Ml Neb) 1.25 mg NEB QIDR [facility] Stop: 08/20/23 06:59 Last Admin: 07/27/23 11:12 Dose: 1.25 mg Metoprolol Succinate (Metoprolol Succ 25mg Ext Rel Tab) 25 mg PO DAILY [facility] Stop: 08/20/23 08:59 Last Admin: 07/24/23 08:48 Dose: Not Given Miscellaneous (Remove Nicoderm Patch) 1 each N/A DAILY@2058 [facility] Stop: 08/20/23 20:58 Last Admin: 07/26/23 21:07 Dose: 1 each Multivitamins (Multivitamin Tab) 1 tab PO QAM [facility] Stop: 08/20/23 08:59 Last Admin: 07/24/23 08:48 Dose: Not Given Nicotine (Nicotine 14 Mg/24 Hr Patch) 14 mg TD HS [facility] Stop: 08/19/23 20:29 Last Admin: 07/26/23 21:06 Dose: 14 mg Pantoprazole Sodium (Pantoprazole 40 Mg Tab) 40 mg PO DAILYBB [facility] Stop: 08/20/23 06:29 Last Admin: 07/25/23 08:26 Dose: 40 mg Propofol (Propofol Bolus From Bag) 20 mg IV Q5M PRN PRN Reason: Sedation Stop: 07/27/23 14:07 Psyllium Hydrophilic Mucilloid (Psyllium Or Guar Gum Fiber Powder Packet) 1 pkt PO DAILY PRN PRN Reason: Constipation Stop: 08/19/23 23:41 Sodium Chloride (Sodium Chlor 7% 4 Ml Neb) 4 ml NEB BIDR [facility] Stop: 08/21/23 18:59 Last Admin: 07/27/23 07:57 Dose: 4 ml Sterile Water (Tube Feeding Water Flush) 30 ml OG Q4H [facility] Stop: 08/25/23 10:29 Last Admin: 07/27/23 10:33 Dose: Not Given (3) Community acquired pneumonia Laterality: left Lung location: upper lobe of lung Qualified Code(s): J18.9 - Pneumonia, unspecified organism
[2023-07-27 11:48] LABS: Appearance Pleural Fluid Slightly Hazy; Color Pleural Fluid Yellow; Eosinophils, Fluid 2 %; Lymphocytes, Fluid 20 %; Mono,Macrophage,Mesothelial 19 %; Neutrophils, Fluid 59 %; RBC Pleural Fluid Auto 6000 /uL; Source Pleural Fluid Left Lung; WBC Pleural Fluid Auto 4188 /uL
[2023-07-27] MEDS ORDERED: GABAPENTIN 600 MG TAB PO SCH (12:00)
[2023-07-27] MEDS ORDERED: LABETALOL HCL IV 5 MG/ML 20ML IV ONE (12:21)
[2023-07-27 12:50] LABS: ANTI-Xa, UFH(UnfractionatedHep < 0.10 IU/ml (0.3-0.7)
[2023-07-27] MEDS ORDERED: cloNIDine HCL 0.1 MG TAB PO ONE (13:50)
[2023-07-27] MEDS ORDERED: GABAPENTIN 400 MG CAP PO SCH (14:15)
[2023-07-27] MEDS ORDERED: STAT IV Infusion **Titration per Protocol STA (15:01)
[2023-07-27] MEDS: PANTOprazole 40 MG in SYRINGE 0 ML IV SCH (15:04)
[2023-07-27] MEDS: LOSARTAN POTASSIUM 50 MG TAB PO SCH (15:04)
[2023-07-27] MEDS: niCARdipine 25 MG in SODIUM CHLORIDE 0.9% 240 ML IV SCH ×3 (15:16→22:15)
[2023-07-27] MEDS: carvediloL 6.25 MG TAB PO SCH (17:12)
[2023-07-27] MEDS: ACETAMINOPHEN 325 MG TAB PO PRN (17:12)
[2023-07-27] MEDS: dexMEDEtomidine 200 MCG/50 ML BAG IV SCH (17:32)
[2023-07-27] MEDS: levoFLOXacin/D5W 750 MG/150 ML BAG IV SCH (18:56)
[2023-07-27] MEDS: NICOTINE 14 MG/24 HR PATCH TD SCH (20:01)
[2023-07-28 05:39] LABS: Basophils # (auto) 0.03 K/uL (0.00-0.20); Basophils % (auto) 0.2 %; Hematocrit (blood only) 26.3 % (37.0-47.0); Hemoglobin 8.9 g/dl (12.0-16.0); Immature Granulocytes # (auto) 0.61 K/uL (0.01-0.20); Lymphocytes # (auto) 0.81 K/uL (1.20-3.40); Lymphocytes % (auto) 5.4 %; Mean Corpuscular Hemoglobin 33.1 pg (25.0-34.0); Mean Corpuscular Hgb Conc 33.8 g/dL (32.0-36.0); Mean Corpuscular Volume 97.8 fL (80.0-100.0); Monocytes # (auto) 0.71 K/uL (0.11-0.59); Monocytes % (auto) 4.7 %; Neutrophils # (auto) 12.92 K/uL (1.40-6.50); Neutrophils % (auto) 85.7 %; Platelet Count 136 K/uL (130-400); RDW Coefficient of Variation 14.6 % (11.5-14.5); RDW Standard Deviation 52.2 fL (36.4-46.3); Red Blood Count 2.69 M/uL (4.20-5.40); White Blood Count 15.08 K/ul (4.8-10.8)
[2023-07-28 07:11] LABS: BUN Creatinine Ratio 43.8 (10-20); Calcium 8.6 mg/dl (8.6-10.3); Est GFR (African American) 125.3 ml/min; Est GFR (Non-African American) 108.1 ml/min; Magnesium 2.1 mg/dl (1.7-2.4); Potassium 3.8 mmol/L (3.5-5.1)
[2023-07-28] MEDS: LEVALBUTEROL 1.25 MG/3 ML NEB NEB SCH ×4 (07:53→20:04)
[2023-07-28] MEDS: SODIUM CHLOR 7% 4 ML NEB NEB SCH ×2 (07:54→20:12)
[2023-07-28] MEDS: IPRATROPIUM BROMIDE NEB SOLN 0.02% 2.5 ML VIAL INH SCH ×4 (07:54→20:04)
[2023-07-28] MEDS: carvediloL 6.25 MG TAB PO SCH ×2 (08:03→17:45)
[2023-07-28] MEDS: dilTIAZem HCL 240 MG CAPCR PO SCH (08:03)
[2023-07-28] MEDS: FOLIC ACID 1 MG TAB PO SCH (08:03)
[2023-07-28] MEDS: LOSARTAN POTASSIUM 50 MG TAB PO SCH (08:03)
[2023-07-28] MEDS: niCARdipine 25 MG in SODIUM CHLORIDE 0.9% 240 ML IV SCH (09:39)
--- NOTE | 2023-07-28 10:53 | Critical Care Progress Note ---
Date of Service July 28, 2023 Assessment & Plan (1) Community acquired pneumonia: (2) Acute respiratory failure with hypoxia: (3) COPD (chronic obstructive pulmonary disease): (4) Immunocompromised state: (5) Pleural effusion: Plan 58-year-old female with history of rheumatoid arthritis on chronic immunosuppressive therapy who presents to the ICU due to mental status change and hypoxemic respiratory failure. She was intubated 07/24/2023. Thus far blood cultures and sputum cultures have been negative to jeanne. She had a chest CTA completed last night to evaluate for PE which was negative. Heparin discontinued. Thoracentesis performed of the left pleural effusion 07/27/2023 revealed an exudate which is likely a parapneumonic effusion. Cultures pending. Cytology pending as well. Continue Levaquin for Legionella pneumonia based on the urine Legionella antigen. Recommend 14-day course of Levaquin. Repeat MRSA screen negative. PJP PCR Aspergillus antigen pending. Will repeat MRSA screen. Her sodium levels continue to improve. Patient extubated 07/27/2023. Arterial line removed. Will remove central line as well. BP much better controlled today with the addition of losartan, carvedilol and diltiazem. Continue as needed IV Lasix. Recommend repeat chest x-ray in 2 to 3 days to follow-up on left lower lobe infiltrate and pleural effusion. She is stable to downgrade to PCU status. Admission and Anticipated Discharge Date Admission Date: July 20, 2023 Subjective Patient seen and examined. She is alert and oriented x 3. She denies any pain or shortness of breath. She does endorse weakness. She denies any fevers, chills or night sweats. Review of Systems Review of Systems: All systems reviewed & are unremarkable except as noted in HPI & below Physical Exam Physical Exam: Constitutional: Patient appears to be of their stated age. Patient is in no apparent distress. Patient is well-developed. Eyes: Pupils are equal round and reactive to light. Conjunctivae are normal. Anicteric sclera. Ears nose, mouth and throat: Endotracheal tube in place. Neck: Trachea is midline. Visual inspection is normal. Respiratory: Rhonchi noted in the upper lung walker bilaterally. Cardiovascular: Regular rate and rhythm. No murmurs. No edema. Gastrointestinal: Normal bowel sounds, soft, nontender and nondistended. No hepatosplenomegaly noted. Musculoskeletal: No cyanosis. Patient is able to move all extremities. Strength is 5 out of 5 in the upper and lower extremities. Skin: No rashes, warm dry and intact. Neurologic: No obvious focal neurological deficits seen. Psychiatric: Alert and oriented x 3. Euthymic mood. Results & Data Results & Data Vital Signs (Past 12 Hours) Vital Signs Temp Pulse Pulse Resp BP Pulse Ox O2 Del Method 07/28/23 08:49 83 07/28/23 08:00 90 24 170/102 H 97 Nasal Cannula 07/28/23 08:00 36.4 C L 07/28/23 07:54 87 20 93 Nasal Cannula 07/28/23 07:51 Nasal Cannula 07/28/23 07:00 84 26 H 170/96 H 91 Nasal Cannula 07/28/23 06:07 Oxymask 07/28/23 06:02 88 23 167/90 H 95 07/28/23 06:00 96 H 29 H 91 07/28/23 05:00 36.8 C 87 21 153/90 H 94 07/28/23 04:00 36.7 C 89 20 146/85 H 93 07/28/23 03:00 36.7 C 88 20 144/84 H 93 07/28/23 02:00 36.7 C 86 21 136/78 92 07/28/23 01:00 36.8 C 88 23 137/80 92 07/28/23 00:43 94 H 07/28/23 00:00 36.9 C 90 23 92 07/28/23 00:00 121/71 07/27/23 23:39 36.9 C 94 H 21 134/78 07/27/23 23:00 36.8 C 97 H 92 O2 Flow Rate 07/28/23 08:49 07/28/23 08:00 5 07/28/23 08:00 07/28/23 07:54 4 07/28/23 07:51 5 07/28/23 07:00 5 07/28/23 06:07 6 07/28/23 06:02 07/28/23 06:00 07/28/23 05:00 07/28/23 04:00 07/28/23 03:00 07/28/23 02:00 07/28/23 01:00 07/28/23 00:43 07/28/23 00:00 07/28/23 00:00 07/27/23 23:39 07/27/23 23:00 Coding Level of Care Code 04278 SUB INP/OBS CARE 2/35MIN Diagnoses Community acquired pneumonia of left upper lobe of lung J18.9 Laterality: left Lung location: upper lobe of lung Acute respiratory failure with hypoxia J96.01 COPD (chronic obstructive pulmonary disease) J44.9 COPD type: chronic bronchitis Immunocompromised state D84.9 Pleural effusion J90 (1) Community acquired pneumonia Laterality: left Lung location: upper lobe of lung Qualified Code(s): J18.9 - Pneumonia, unspecified organism (3) COPD (chronic obstructive pulmonary disease) COPD type: chronic bronchitis
--- NOTE | 2023-07-28 11:06 | Hospitalist Progress Note ---
Date of Service July 28, 2023 Assessment & Plan (1) Severe sepsis: (2) Sepsis: (3) Community acquired pneumonia: (4) Hyponatremia: (5) COPD exacerbation: (6) Encephalopathy: (7) Immunocompromised state: (8) Elevated troponin: (9) Abnormal liver enzymes: (10) Prediabetes: (11) Anxiety: Plan Pt is a 58yoF with PMHx significant for hypertension, PSVT, COPD, RA on immunosuppressive regimen, NAFLD, ADD/anxiety/mood disorder, cervical dysplasia, erythema nodosum, ongoing tobacco abuse admitted with sepsis in the setting of of pneumonia. Sepsis COPD exacerbation Pneumonia Pt with SOB from home WBC elevated at 14.68 on admission, has since become normal Chest xray concerning for pneumonia with opacities noted on the left CT chest with lingula consolidation- follow up CT chest recommended in 1-2 months to ensure resolution V/Q scan with indeterminate to high suspicion for PE- continue heparin at this time Sputum Cx with NGTD Blood Cx x 2 with NGTD Biofire negative, UA not suggestive of infection Pt immunocompromised Originally on Rocephin and doxycycline, broadened to Zosyn, switched doxy to azithromycin oxygen supplementation as needed, pt now with occasional increased oxygen need Pulmonology consult placed, appreciate recs -MRSA Screen negative -Legionella is positive -continue Zosyn, switch doxy to azithromycin -discontinue steroids -Hold all immunosuppressants -Start percussive vest therapy 4 times daily -start hypertonic saline twice daily -continue nebs QID -wean oxygen as tolerated with goal above 90% Condition has been deteriorating as of this morning She has been requiring BiPAP to maintain saturation More wheezing and shortness of breath this afternoon Will get ABG and chest x-ray Her condition got worse and she was transferred to ICU and put her on mechanical ventilator She remains stable on the machine Appreciate operator prefinish input and recommendation Status post left thoracentesis of 500 mL yellow-colored fluid-sent for studies Status post extubation on 07/28/2023 Feeling much better following extubation denies any significant symptoms except weakness and tiredness Will start PT and OT Encephalopathy Possibly secondary to sepsis SIRS plus encephalopathy Head CT with no acute changes VBG on admission with low CO2 Hyponatremic, sodium 127 on admission- could be contributory Tox profile ordered for completion and to rule out a toxic cause-still pending Brain MRI unremarkable Consider Neurology consult if symptoms do not improve- pt more alert today Minimize use of narcotics for pain, receiving Ativan per AWSS protocol No more and cephalopathy Hyponatremia Sodium 127 on admission Home bupropion possible contributory Hyponatremic workup, careful correction of sodium nephrology consult- appreciate recs IV fluid has been discontinued and the sodium level has not changed Lasix doses have been increased to 20 mg 3 times daily Will monitor PRP and electrolytes As Legionella pneumonia and likely the cause for hyponatremia Appreciate nephrology input and recommendation Sodium level is improved to 132 as of 07/26/2023 Sodium level is up to 134 today Sodium has been normalized at 143 on 07/28/2020 RA Immunocompromised status hx rheumatoid arthritis on immunosuppressive regimen Hold Arava and Rinvoq RA medications for now until patient recovers from infection Hold hydroxychloroquine Elevated Troponins hs-Trop elevated at 17.6 to 28.5 to 26.3 EKG with sinus tach Echo ordered with no acute changes Likely elevation of trop due to demand Livedo Reticularis Pt's with picture of rash Reticular pattern on lower extremities, states it comes and goes Was not present on lower extremities at time of exam today Associated with hypercoaguable states, vasculitis D-dimer ordered and elevated -lower extremity doppler with no DVT -V/Q scan with indeterminate to high suspicion for PE- continue heparin at this time Hypertension hx PSVT Continue home metoprolol and Diltiazem Hold home losartan Continue to monitor Blood pressure remains stable on the lower side Blood pressure seems to be high today at 170/102 Possible alcoholic hepatitis Abnormal LFTs Hx NAFLD Concern for alcohol abuse as per outpatient [facility] cardiology documentation last month Pt with episode on 07/21 noting she is anxious, having a headache, given one time dose of Ativan 0.5mg Concern for active withdrawal at this time AWSS at risk protocol switched to active protocol with Ativan, consider addition of gabapentin in the setting of encephalopathy DT precautions Continue to monitor for signs of alcohol withdrawal LFTs are stable and is mildly elevated-LFTs are almost normal LFTs have been normalized ADD/anxiety/mood disorder Home bupropion on hold in setting of hyponatremia and encephalopathy Holding home lexapro Hyperglycemia Hgba1c of 5.7 indicating prediabetes Monitor Ongoing tobacco abuse Nicotine patch Encourage cessation Diet: Clear liquid DVT prophylaxis: Lovenox subcu Full code Dispo: PT/OT ordered Prognosis remains guarded Admission and Anticipated Discharge Date Admission Date: July 20, 2023 Subjective 07/24/2023 The patient was seen and examined in telemetry unit She remains drowsy but otherwise alert and awake Denies any significant complaints Has been on BiPAP and saturating normally 07/25/2023 The patient was seen and examined in ICU She remains ventilated and sedated 07/26/2023 The patient was seen and examined in ICU in presence of the She remains intubated and sedated 07/27/2023 The patient was seen and examined in ICU in presence of the She remains intubated and sedated Has had left thoracentesis today and has been requiring minimal sedation 07/28/2023 The patient was seen and examined in ICU in presence of the She is extubated and has been feeling much better She remains generally weak and lethargy Review of Systems Review of Systems: All systems reviewed and are unremarkable except as noted below Physical Exam Physical Exam: Remains stable on mechanical ventilation Constitutional: well developed, well nourished, + ill appearing and average body habitus Eyes: PERRL, conjunctivae normal, anicteric sclerae ENMT: external ear and nose normal, oropharynx normal Neck: trachea midline, no thyromegaly Respiratory: no respiratory distress Auscultation: + diminished lung sounds and + crackles (Occasional crackles at the bases) Cardiovascular: Rate/Rhythm: regular rate, regular rhythm and + tachycardic Heart Sounds: normal S1 and normal S2; no murmur Extremities: no edema Gastrointestinal (Abdomen): Inspection/Auscultation: normal bowel sounds; abdomen not distended Percussion/Palpation: abdomen soft; abdomen nontender Musculoskeletal: No acute arthritis involving any of the joint Neurologic: normal touch/pain/proprioception and moves all extremities; no focal motor deficits Remains extremely weak Lymphatic: no cervical or axillary lymphadenopathy Results & Data Results & Data Vital Signs (Past 12 Hours) Vital Signs Temp Pulse Pulse Resp BP Pulse Ox O2 Del Method 07/28/23 10:55 74 20 94 Nasal Cannula 07/28/23 08:49 83 07/28/23 08:00 90 24 170/102 H 97 Nasal Cannula 07/28/23 08:00 36.4 C L 07/28/23 07:54 87 20 93 Nasal Cannula 07/28/23 07:51 Nasal Cannula 07/28/23 07:00 84 26 H 170/96 H 91 Nasal Cannula 07/28/23 06:07 Oxymask 07/28/23 06:02 88 23 167/90 H 95 07/28/23 06:00 96 H 29 H 91 07/28/23 05:00 36.8 C 87 21 153/90 H 94 07/28/23 04:00 36.7 C 89 20 146/85 H 93 07/28/23 03:00 36.7 C 88 20 144/84 H 93 07/28/23 02:00 36.7 C 86 21 136/78 92 07/28/23 01:00 36.8 C 88 23 137/80 92 07/28/23 00:43 94 H 07/28/23 00:00 36.9 C 90 23 92 07/28/23 00:00 121/71 07/27/23 23:39 36.9 C 94 H 21 134/78 O2 Flow Rate 07/28/23 10:55 4 07/28/23 08:49 07/28/23 08:00 5 07/28/23 08:00 07/28/23 07:54 4 07/28/23 07:51 5 07/28/23 07:00 5 07/28/23 06:07 6 07/28/23 06:02 07/28/23 06:00 07/28/23 05:00 07/28/23 04:00 07/28/23 03:00 07/28/23 02:00 07/28/23 01:00 07/28/23 00:43 07/28/23 00:00 07/28/23 00:00 07/27/23 23:39 Laboratory Results Short CBC 07/28/23 Range/Units 04:25 WBC 15.08 H (4.8-10.8) K/ul Hgb 8.9 L (12.0-16.0) g/dl Hct 26.3 L (37.0-47.0) % Plt Count 136 (130-400) K/uL BMP 07/28/23 04:25 Sodium 143 D Potassium 3.8 Chloride 108 H Carbon Dioxide 27 BUN 21 Creatinine 0.48 L Glucose 112 H Calcium 8.6 Medications Administered Current Inpatient Medications Acetaminophen (Acetaminophen 325 Mg Tab) 650 mg PO Q6H PRN PRN Reason: Fever or headache Stop: 08/20/23 08:00 Last Admin: 07/27/23 17:12 Dose: 650 mg Acetaminophen/Codeine Phosphate (Acetaminophen W/Codeine #3 1 Tab) 1 tab PO Q4H PRN PRN Reason: Pain Stop: 08/21/23 20:58 Last Admin: 07/23/23 08:48 Dose: 1 tab Calcium Citrate (Calcium Citrate 950 Mg Tab) 950 mg PO PC [facility] Stop: 08/21/23 17:59 Last Admin: 07/24/23 18:11 Dose: Not Given Carvedilol (Carvedilol 6.25 Mg Tab) 6.25 mg PO BIDM [facility] Stop: 08/26/23 16:59 Last Admin: 07/28/23 08:03 Dose: 6.25 mg Diltiazem HCl (Diltiazem Hcl 240 Mg Capcr) 240 mg PO QAM [facility] Stop: 08/21/23 08:59 Last Admin: 07/28/23 08:03 Dose: 240 mg Escitalopram Oxalate (Escitalopram Oxalate 10 Mg Tab) 15 mg PO QAM [facility] Stop: 08/20/23 08:59 Last Admin: 07/21/23 08:00 Dose: 15 mg Fexofenadine HCl (Fexofenadine Hcl 180 Mg Tab) 180 mg PO DAILY [facility] Stop: 08/20/23 08:59 Last Admin: 07/24/23 08:49 Dose: Not Given Folic Acid (Folic Acid 1 Mg Tab) 3 mg PO DAILY [facility] Stop: 08/20/23 08:59 Last Admin: 07/28/23 08:03 Dose: 3 mg Furosemide (Furosemide Inj 20 Mg/2 Ml Vial) 20 mg IV TIDPC [facility] Stop: 08/23/23 11:14 Last Admin: 07/25/23 10:35 Dose: Not Given Hydroxychloroquine Sulfate (Hydroxychloroquine Sulfate 200 Mg Tab) 300 mg PO HS [facility] Stop: 08/19/23 22:55 Last Admin: 07/21/23 22:42 Dose: 300 mg Levofloxacin/Dextrose (Levaquin/D5w) 750 mg in 150 mls @ 100 mls/hr IV Q24H [facility]; Protocol Stop: 07/31/23 16:59 Last Infusion: 07/27/23 20:28 Dose: Infused Pantoprazole Sodium 40 mg/ (Syringe) 10 mls @ 5 mls/min IV DAILY@1100 [facility] Stop: 08/25/23 10:59 Last Admin: 07/27/23 15:04 Dose: 5 mls/min Ipratropium [place] (Ipratropium [place] Neb Soln 0.02% 2.5 Ml Vial) 0.5 mg INH QIDR [facility] Stop: 08/20/23 06:59 Last Admin: 07/28/23 10:55 Dose: 0.5 mg Levalbuterol HCl (Levalbuterol 1.25 Mg/3 Ml Neb) 1.25 mg NEB QIDR [facility] Stop: 08/20/23 06:59 Last Admin: 07/28/23 10:55 Dose: 1.25 mg Losartan Potassium (Losartan Potassium 50 Mg Tab) 50 mg PO QAM [facility] Stop: 08/26/23 13:59 Last Admin: 07/28/23 08:03 Dose: 50 mg Metoprolol Succinate (Metoprolol Succ 25mg Ext Rel Tab) 25 mg PO DAILY [facility] Stop: 08/20/23 08:59 Last Admin: 07/24/23 08:48 Dose: Not Given Miscellaneous (Remove Nicoderm Patch) 1 each N/A DAILY@2058 [facility] Stop: 08/20/23 20:58 Last Admin: 07/27/23 20:02 Dose: 1 each Multivitamins (Multivitamin Tab) 1 tab PO QAM [facility] Stop: 08/20/23 08:59 Last Admin: 07/24/23 08:48 Dose: Not Given Nicotine (Nicotine 14 Mg/24 Hr Patch) 14 mg TD HS [facility] Stop: 08/19/23 20:29 Last Admin: 07/27/23 20:01 Dose: 14 mg Pantoprazole Sodium (Pantoprazole 40 Mg Tab) 40 mg PO DAILYBB [facility] Stop: 08/20/23 06:29 Last Admin: 07/25/23 08:26 Dose: 40 mg Psyllium Hydrophilic Mucilloid (Psyllium Or Guar Gum Fiber Powder Packet) 1 pkt PO DAILY PRN PRN Reason: Constipation Stop: 08/19/23 23:41 Sodium Chloride (Sodium Chlor 7% 4 Ml Neb) 4 ml NEB BIDR [facility] Stop: 08/21/23 18:59 Last Admin: 07/28/23 07:54 Dose: 4 ml (3) Community acquired pneumonia Laterality: left Lung location: upper lobe of lung Qualified Code(s): J18.9 - Pneumonia, unspecified organism
[2023-07-28] MEDS: HYDROmorphone INJ 0.5 MG/0.5 ML SYR IV PRN ×2 (13:36→20:52)
[2023-07-28] MEDS: PANTOprazole 40 MG in SYRINGE 0 ML IV SCH (13:50)
[2023-07-28] MEDS ORDERED: cloNIDine HCL 0.1 MG TAB PO ONE (14:07)
[2023-07-28] MEDS: levoFLOXacin/D5W 750 MG/150 ML BAG IV SCH (17:45)
[2023-07-28] MEDS: ACETAMINOPHEN W/CODEINE #3 1 TAB PO PRN (17:45)
[2023-07-28] MEDS: FUROSEMIDE INJ 20 MG/2 ML VIAL IV SCH (17:47)
[2023-07-28] MEDS: CALCIUM CITRATE 950 MG TAB PO SCH (20:45)
[2023-07-28] MEDS ORDERED: NICOTINE 14 MG/24 HR PATCH TD SCH (21:00)
[2023-07-29] MEDS ORDERED: LORazepam 0.5 MG TAB PO STA (01:38)
[2023-07-29] MEDS ORDERED: dilTIAZem HCl 5 MG/ML 5 ML VIAL IV STA (05:00)
[2023-07-29] MEDS: PANTOprazole 40 MG TAB PO SCH (05:00)
[2023-07-29] MEDS ORDERED: METOPROLOL TARTRATE 1 MG/ML VIAL IV ONE (05:43)
[2023-07-29] MEDS ORDERED: methylPREDNISolone 60 MG in SYRINGE 0 ML IV STA (05:50)
[2023-07-29] MEDS ORDERED: XOPENEX/ATROVENT 1.25mg/0.5MG NEB COMBO NEB STA (05:56)
[2023-07-29] MEDS ORDERED: IPRATROPIUM BROMIDE NEB SOLN 0.02% 2.5 ML VIAL INH STA (05:57)
[2023-07-29] MEDS ORDERED: LEVALBUTEROL 1.25 MG/3 ML NEB NEB STA (05:57)
[2023-07-29 06:19] LABS: iSTAT Arterial Blood Gas HCO3 25 meg/L (19-24); iSTAT Arterial Blood Gas pCO2 35 mmHg (35-46); iSTAT Arterial Blood Gas pH 7.47 (7.35-7.45); iSTAT Arterial Blood Gas pO2 65 mmHg (80-95); iSTAT Carbon Dioxide 26 mmol/L (24-31); iSTAT Hematocrit 34 % (37-47); iSTAT Hemoglobin 11.6 g/dl (12.0-16.0); iSTAT Potassium 3.6 mmol/L (3.3-5.0); iSTAT Sodium 139 mmol/L (135-144)
[2023-07-29] MEDS ORDERED: BUDESONIDE 0.25 MG/2 ML VIAL (PULMICORT) NEB ONE (06:19)
--- NOTE | 2023-07-29 06:29 | Communication Note ---
Date of Service: July 29, 2023 58 YOF history of RA, Current smoker, with ETOH use/misuse. Patient known to critical care department as she was just in the ICU intubated for Legionella Pneumonia. Was asked to see patient this morning by primary service secondary to tachypnea, tachycardia. Prior to my examination patient had an ABG performed (7.46, 34, 65, 24), Xopinex nebulizer, 60mg of Solumederol and placed BiPAP (10/5)- VT 380-450s- with accessory muscle use. She also received IV Cardizem for tachycardia in the 130s at 0500 and was also given Metoprolol 5mg IV at 0550 for tachycardia. She is awake and is without chest discomfort, but does say her breathing is "labored". She has a history of anaphylaxis reaction to contrast dye. We did repeat a CT PE protocol scan on 07/27/23, that was negative for PE and heparin infusion was discontinued at that time. Focused Exam: Patient is awake conversant decreased breath sounds on right, inspiratory and expiratory wheeze bilaterally, ronchorous through-out the left skin is warm with peripheral pulses 2+ all extremities mottling to upper thighs with BP 100/80s (90) notable Labs: ABG noted above, mag 1.6, HScTNI 410.0 EKG: no STEMI criteria, non-specific ST and with PVCs She will b brought back to ICU for respiratory monitoring and supportive care, with the hopes to stave off intubation. Obtain CXR on arrival IV magnesium Finish nebulizers Duplex venous bilateral lower extremities eval for DVT Full consult to follow. Ernst CAMARENA ([facility]
[2023-07-29 06:30] LABS: Calcium 9.1 mg/dl (8.6-10.3); Creatinine Clr Calc Pharmacy 95.1 ml/min; Est GFR (African American) 122.8 ml/min; Magnesium 1.6 mg/dl (1.7-2.4); Potassium 3.8 mmol/L (3.5-5.1)
[2023-07-29] MEDS: MAGNESIUM SULFATE / D5W 1 GM/100 ML BAG IV SCH ×2 (06:41→08:49)
[2023-07-29] MEDS: LEVALBUTEROL 1.25 MG/3 ML NEB NEB SCH ×4 (06:50→20:32)
[2023-07-29] MEDS: IPRATROPIUM BROMIDE NEB SOLN 0.02% 2.5 ML VIAL INH SCH ×4 (06:50→20:32)
--- NOTE | 2023-07-29 06:59 | XRay Report ---
XR chest 1V portable CLINICAL HISTORY: eval for pneumo/lobar collapse/consolidation COMPARISON STUDY: Chest radiograph and chest CT July 27, 2023. FINDINGS: The lines and tubes have been removed. There is no pneumothorax. Small left pleural effusio n is again noted. Extensive left lung consolidation consistent with pneumonia has slightly progressed . Mild right lower lung opacity has increased. Cardiomediastinal silhouette is stable. Emphysema is b flavia depicted on prior CT. IMPRESSION: 1. Extensive left lung pneumonia, slightly increased since prior exam. 2. Mild increase in right lower lung opacity which is also likely infectious. 3. Small left pleural effusion. ACT 112: Negative or not required by law. Electronically signed by: Ebenezer Carroll M.D. 07/29/2023 6:58 AM
[2023-07-29 07:41] LABS: Hematocrit (blood only) 34.6 % (37.0-47.0); Hemoglobin 11.8 g/dl (12.0-16.0); Mean Corpuscular Hemoglobin 32.9 pg (25.0-34.0); Mean Corpuscular Hgb Conc 34.1 g/dL (32.0-36.0); Mean Corpuscular Volume 96.4 fL (80.0-100.0); Mean Platelet Volume 11.1 fL (9.4-12.4); Platelet Count 163 K/uL (130-400); RDW Coefficient of Variation 14.6 % (11.5-14.5); RDW Standard Deviation 51.7 fL (36.4-46.3); Red Blood Count 3.59 M/uL (4.20-5.40); White Blood Count 19.01 K/ul (4.8-10.8)
[2023-07-29 07:45] LABS: Basophils # (auto) 0.06 K/uL (0.00-0.20); Basophils % (auto) 0.3 %; Eosinophils # (auto) 0.15 K/uL (0.00-0.50); Eosinophils % (auto) 0.8 %; Immature Granulocytes # (auto) 0.55 K/uL (0.01-0.20); Immature Granulocytes % (auto) 2.9 %; Lymphocytes # (auto) 0.99 K/uL (1.20-3.40); Lymphocytes % (auto) 5.2 %; Monocytes # (auto) 1.09 K/uL (0.11-0.59); Monocytes % (auto) 5.7 %; Neutrophils # (auto) 16.17 K/uL (1.40-6.50); Neutrophils % (auto) 85.1 %
[2023-07-29] MEDS: SODIUM CHLOR 7% 4 ML NEB NEB SCH ×2 (08:00→20:42)
--- NOTE | 2023-07-29 08:21 | Ultrasound Report ---
BILATERAL LOWER EXTREMITY VENOUS DOPPLER CLINICAL HISTORY: acute dyspnea, tachycardia- eval for DVT COMPARISON STUDY: Bilateral lower extremity venous Doppler ultrasound July 21, 2023. TECHNIQUE: Sonography of the deep venous system of the bilateral lower extremities was performed. Co mpression and augmentation were evaluated. FINDINGS: The bilateral common femoral, superficial femoral and popliteal veins were compressible. A ugmentation was normal. Flow was shown within the deep calf vessels. IMPRESSION: No evidence of deep venous thrombus within the bilateral lower extremities. ACT 112: Negative or not required by law. Electronically signed by: Ebenezer Carroll M.D. 07/29/2023 8:19 AM
[2023-07-29] MEDS: FUROSEMIDE INJ 20 MG/2 ML VIAL IV SCH ×3 (08:52→18:04)
[2023-07-29] MEDS: NICOTINE 7 MG/24 HR TDSY TD SCH (08:56)
[2023-07-29] MEDS: HYDROmorphone INJ 0.5 MG/0.5 ML SYR IV PRN (09:11)
--- NOTE | 2023-07-29 10:15 | Communication Note ---
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 Ordered a dose of iv cardizem 10mg. Then was called that patient still tachycardiac and now also tachypneic. Saw the patient. Patient seemed in respiratory distress with tachypneic and tachycardic and barely about to speak. B/L wheeing. SBP elevated. Denied chest pain.Given a dose of iv Lopressor 5mg. Heart rates improved to 110's.EKG no acute findings. ABG istat. showed PH 7.4 Placed on Bipap. A dose of iv solumedrol 60mg and nebs ordered. BUt as patient continued seemed to be in acute resp distress and was just recently got extubated notified Critical care and was transferred to ICU for close monitor and further management.
--- NOTE | 2023-07-29 10:48 | Communication Note ---
Date of Service: July 29, 2023 followed by nephro earlier this admission for severe hyponatremia, now improved though she is overall clinically worsening. Will sign off officially. NEPHRO DISCHARGE RECOMMENDATIONS -bmp w/ PCP f/u w/in one week of hospital d/c -hospital d/c appt w/ nephro 2-4 wks after d/c with RENAL nurse to order sodium labs to be done up to 5 days before appt
[2023-07-29] MEDS: POTASSIUM CHLORIDE / WTR 10 MEQ/100 ML PLCT IV SCH ×2 (11:03→12:24)
[2023-07-29] MEDS: ENOXAPARIN INJ 40 MG/0.4 ML SYR SQ SCH (11:05)
[2023-07-29] MEDS: predniSONE 50 MG TAB PO SCH (11:19)
[2023-07-29] MEDS: carvediloL 6.25 MG TAB PO SCH ×2 (11:19→18:02)
[2023-07-29] MEDS: dilTIAZem HCL 240 MG CAPCR PO SCH (11:20)
[2023-07-29] MEDS: METOPROLOL SUCC 25MG EXT REL TAB PO SCH (11:20)
[2023-07-29] MEDS: LOSARTAN POTASSIUM 50 MG TAB PO SCH (11:21)
[2023-07-29] MEDS: FOLIC ACID 1 MG TAB PO SCH (11:25)
[2023-07-29] MEDS: ESCITALOPRAM OXALATE 10 MG TAB PO SCH (11:25)
[2023-07-29] MEDS: CALCIUM CITRATE 950 MG TAB PO SCH ×5 (11:25→18:09)
[2023-07-29] MEDS: MULTIVITAMIN TAB PO SCH (11:25)
[2023-07-29] MEDS: FEXOFENADINE HCL 180 MG TAB PO SCH (11:25)
--- NOTE | 2023-07-29 13:53 | Hospitalist Progress Note ---
Date of Service July 29, 2023 Assessment & Plan (1) Severe sepsis: (2) Sepsis: (3) Community acquired pneumonia: (4) Hyponatremia: (5) COPD exacerbation: (6) Encephalopathy: (7) Immunocompromised state: (8) Elevated troponin: (9) Abnormal liver enzymes: (10) Prediabetes: (11) Anxiety: Plan Pt is a 58yoF with PMHx significant for hypertension, PSVT, COPD, RA on immunosuppressive regimen, NAFLD, ADD/anxiety/mood disorder, cervical dysplasia, erythema nodosum, ongoing tobacco abuse admitted with sepsis in the setting of of pneumonia. Sepsis COPD exacerbation Pneumonia Pt with SOB from home WBC elevated at 14.68 on admission, has since become normal Chest xray concerning for pneumonia with opacities noted on the left CT chest with lingula consolidation- follow up CT chest recommended in 1-2 months to ensure resolution V/Q scan with indeterminate to high suspicion for PE- continue heparin at this time Sputum Cx with NGTD Blood Cx x 2 with NGTD Biofire negative, UA not suggestive of infection Pt immunocompromised Originally on Rocephin and doxycycline, broadened to Zosyn, switched doxy to azithromycin oxygen supplementation as needed, pt now with occasional increased oxygen need Pulmonology consult placed, appreciate recs -MRSA Screen negative -Legionella is positive -continue Zosyn, switch doxy to azithromycin -discontinue steroids -Hold all immunosuppressants -Start percussive vest therapy 4 times daily -start hypertonic saline twice daily -continue nebs QID -wean oxygen as tolerated with goal above 90% Condition has been deteriorating as of this morning She has been requiring BiPAP to maintain saturation More wheezing and shortness of breath this afternoon Will get ABG and chest x-ray Her condition got worse and she was transferred to ICU and put her on mechanical ventilator She remains stable on the machine Appreciate concrete plant laborer input and recommendation Status post left thoracentesis of 500 mL yellow-colored fluid-sent for studies Status post extubation on 07/28/2023 Feeling much better following extubation denies any significant symptoms except weakness and tiredness Condition deteriorated with increase tachypnea and tachycardia and was transferred back to ICU Has been feeling a little better but remains extremely weak and lethargic Has a reevaluation by the bushwalking guide and the concrete plant laborer Will give her in the ICU today for monitoring and likely transfer to telemetry tomorrow Repeat chest x-ray is little worse and has been getting Lasix 20 mg IV 3 times daily Encephalopathy Possibly secondary to sepsis SIRS plus encephalopathy Head CT with no acute changes VBG on admission with low CO2 Hyponatremic, sodium 127 on admission- could be contributory Tox profile ordered for completion and to rule out a toxic cause-still pending Brain MRI unremarkable Consider Neurology consult if symptoms do not improve- pt more alert today Minimize use of narcotics for pain, receiving Ativan per AWSS protocol No more and cephalopathy Hyponatremia Sodium 127 on admission Home bupropion possible contributory Hyponatremic workup, careful correction of sodium nephrology consult- appreciate recs IV fluid has been discontinued and the sodium level has not changed Lasix doses have been increased to 20 mg 3 times daily Will monitor PRP and electrolytes As Legionella pneumonia and likely the cause for hyponatremia Appreciate nephrology input and recommendation Sodium level is improved to 132 as of 07/26/2023 Sodium level is up to 134 today Sodium has been normalized at 143 on 07/28/2020 Sodium level has been normalized RA Immunocompromised status hx rheumatoid arthritis on immunosuppressive regimen Hold Arava and Rinvoq RA medications for now until patient recovers from infection Hold hydroxychloroquine Elevated Troponins hs-Trop elevated at 17.6 to 28.5 to 26.3 EKG with sinus tach Echo ordered with no acute changes Likely elevation of trop due to demand Livedo Reticularis Pt's with picture of rash Reticular pattern on lower extremities, states it comes and goes Was not present on lower extremities at time of exam today Associated with hypercoaguable states, vasculitis D-dimer ordered and elevated -lower extremity doppler with no DVT -V/Q scan with indeterminate to high suspicion for PE- continue heparin at th is time Hypertension hx PSVT Continue home metoprolol and Diltiazem Hold home losartan Continue to monitor Blood pressure remains stable on the lower side Blood pressure seems to be high today at 170/102 Possible alcoholic hepatitis Abnormal LFTs Hx NAFLD Concern for alcohol abuse as per outpatient [facility] cardiology documentation last month Pt with episode on 07/21 noting she is anxious, having a headache, given one time dose of Ativan 0.5mg Concern for active withdrawal at this time AWSS at risk protocol switched to active protocol with Ativan, consider addition of gabapentin in the setting of encephalopathy DT precautions Continue to monitor for signs of alcohol withdrawal LFTs are stable and is mildly elevated-LFTs are almost normal LFTs have been normalized ADD/anxiety/mood disorder Home bupropion on hold in setting of hyponatremia and encephalopathy Holding home lexapro Hyperglycemia Hgba1c of 5.7 indicating prediabetes Monitor Ongoing tobacco abuse Nicotine patch Encourage cessation Diet: Clear liquid DVT prophylaxis: Lovenox subcu Full code Dispo: PT/OT ordered Prognosis remains guarded Admission and Anticipated Discharge Date Admission Date: July 20, 2023 Subjective 07/24/2023 The patient was seen and examined in telemetry unit She remains drowsy but otherwise alert and awake Denies any significant complaints Has been on BiPAP and saturating normally 07/25/2023 The patient was seen and examined in ICU She remains ventilated and sedated 07/26/2023 The patient was seen and examined in ICU in presence of the She remains intubated and sedated 07/27/2023 The patient was seen and examined in ICU in presence of the She remains intubated and sedated Has had left thoracentesis today and has been requiring minimal sedation 07/28/2023 The patient was seen and examined in ICU in presence of the She is extubated and has been feeling much better She remains generally weak and lethargy 07/29/2023 The patient was seen and examined in ICU in presence of the She was transferred back to ICU last evening with increasing shortness of breath and tachycardia Has been feeling better since this morning though with extreme weakness and tiredness Review of Systems Review of Systems: All systems reviewed and are unremarkable except as noted below Physical Exam Physical Exam: Lying in bed with moderate distress due to shortness of breath and weakness Constitutional: well developed, well nourished, + ill appearing and average body habitus Eyes: PERRL, conjunctivae normal, anicteric sclerae ENMT: external ear and nose normal, oropharynx normal Neck: trachea midline, no thyromegaly Respiratory: no respiratory distress Auscultation: + diminished lung sounds and + crackles (Occasional crackles at the bases) Cardiovascular: Rate/Rhythm: regular rate, regular rhythm and + tachycardic Heart Sounds: normal S1 and normal S2; no murmur Extremities: no edema Gastrointestinal (Abdomen): Inspection/Auscultation: normal bowel sounds; abdomen not distended Percussion/Palpation: abdomen soft; abdomen nontender Musculoskeletal: No acute arthritis involving any joint Skin: Generalized bruising involving the upper and lower extremities Neurologic: normal touch/pain/proprioception and moves all extremities; no focal motor deficits Lymphatic: no cervical or axillary lymphadenopathy Results & Data Results & Data Vital Signs (Past 12 Hours) Vital Signs Temp Pulse Pulse Resp BP BP Pulse Ox 07/29/23 12:00 105 H 27 H 123/79 92 07/29/23 11:00 113 H 24 142/94 H 92 07/29/23 10:12 110 H 29 H 113/81 93 07/29/23 10:00 110 H 27 H 97 07/29/23 09:59 113 H 28 H 91 07/29/23 09:59 109 H 28 H 92 07/29/23 09:30 116 H 29 H 122/84 91 07/29/23 09:07 37.8 C H 07/29/23 09:00 134/82 07/29/23 09:00 117 H 38 H 91 07/29/23 08:30 113 H 36 H 116/79 92 07/29/23 08:00 115 H 36 H 113/73 92 07/29/23 07:31 121 H 35 H 141/70 H 90 07/29/23 07:00 119 H 28 H 129/93 94 07/29/23 06:30 119 H 37 H 109/89 91 07/29/23 06:26 115 H 37 H 92 07/29/23 06:05 117 H 44 H 100 07/29/23 05:59 111 H 40 H 97 07/29/23 05:50 109 H 135/110 H 07/29/23 05:39 36.8 C 140 H 42 H 181/124 H 92 07/29/23 05:11 127 H 30 H 122/92 92 07/29/23 04:58 138 H 30 H 07/29/23 04:17 36.5 C 112 H 18 174/83 H 94 O2 Del Method O2 Flow Rate FiO2 07/29/23 12:00 Nasal Cannula 3 07/29/23 11:00 Nasal Cannula 3 07/29/23 10:12 07/29/23 10:00 07/29/23 09:59 2 07/29/23 09:59 BiPAP 2 93 07/29/23 09:30 BiPAP 07/29/23 09:07 07/29/23 09:00 07/29/23 09:00 BiPAP 07/29/23 08:30 BiPAP 07/29/23 08:00 07/29/23 07:31 BiPAP 07/29/23 07:00 BiPAP 07/29/23 06:30 07/29/23 06:26 4 07/29/23 06:05 BiPAP 6 07/29/23 05:59 4 07/29/23 05:50 07/29/23 05:39 Nasal Cannula 4 07/29/23 05:11 Nasal Cannula 4 07/29/23 04:58 07/29/23 04:17 Oxymask 4 Laboratory Results Short CBC 07/29/23 Range/Units 05:50 WBC 19.01 H (4.8-10.8) K/ul Hgb 11.8 L D (12.0-16.0) g/dl Hct 34.6 L (37.0-47.0) % Plt Count 163 (130-400) K/uL BMP 07/29/23 05:50 Sodium 139 Potassium 3.8 Chloride 103 Carbon Dioxide 25 BUN 26 H Creatinine 0.51 L Glucose 167 H Calcium 9.1 Medications Administered Current Inpatient Medications Acetaminophen (Acetaminophen 325 Mg Tab) 650 mg PO Q6H PRN PRN Reason: Fever or headache Stop: 08/20/23 08:00 Last Admin: 07/27/23 17:12 Dose: 650 mg Acetaminophen/Codeine Phosphate (Acetaminophen W/Codeine #3 1 Tab) 1 tab PO Q4H PRN PRN Reason: Pain Stop: 08/21/23 20:58 Last Admin: 07/28/23 17:45 Dose: 1 tab Calcium Citrate (Calcium Citrate 950 Mg Tab) 950 mg PO PC [facility] Stop: 08/21/23 17:59 Last Admin: 07/29/23 13:39 Dose: 950 mg Carvedilol (Carvedilol 6.25 Mg Tab) 6.25 mg PO BIDM [facility] Stop: 08/26/23 16:59 Last Admin: 07/29/23 11:19 Dose: 6.25 mg Diltiazem HCl (Diltiazem Hcl 240 Mg Capcr) 240 mg PO QAM [facility] Stop: 08/21/23 08:59 Last Admin: 07/29/23 11:20 Dose: 240 mg Enoxaparin Sodium (Enoxaparin Inj 40 Mg/0.4 Ml Syr) 40 mg SQ DAILY [facility] Stop: 08/28/23 09:59 Last Admin: 07/29/23 11:05 Dose: 40 mg Escitalopram Oxalate (Escitalopram Oxalate 10 Mg Tab) 15 mg PO QAM [facility] Stop: 08/20/23 08:59 Last Admin: 07/29/23 11:25 Dose: 15 mg Fexofenadine HCl (Fexofenadine Hcl 180 Mg Tab) 180 mg PO DAILY JAQUELIN Stop: 08/20/23 08:59 Last Admin: 07/29/23 11:25 Dose: 180 mg Folic Acid (Folic Acid 1 Mg Tab) 3 mg PO DAILY JAQUELIN Stop: 08/20/23 08:59 Last Admin: 07/29/23 11:25 Dose: 3 mg Furosemide (Furosemide Inj 20 Mg/2 Ml Vial) 20 mg IV TIDPC [facility] Stop: 08/23/23 11:14 Last Admin: 07/29/23 13:40 Dose: 20 mg Hydromorphone HCl (Hydromorphone Inj 0.5 Mg/0.5 Ml Syr) 0.25 mg IV Q6H PRN PRN Reason: Pain Stop: 08/11/23 13:18 Last Admin: 07/29/23 09:11 Dose: 0.25 mg Hydroxychloroquine Sulfate (Hydroxychloroquine Sulfate 200 Mg Tab) 300 mg PO HS [facility] Stop: 08/19/23 22:55 Last Admin: 07/21/23 22:42 Dose: 300 mg Levofloxacin/Dextrose (Levaquin/D5w) 750 mg in 150 mls @ 100 mls/hr IV Q24H [facility]; Protocol Stop: 08/07/23 23:59 Last Infusion: 07/28/23 19:49 Dose: Infused Ipratropium [place] (Ipratropium [place] Neb Soln 0.02% 2.5 Ml Vial) 0.5 mg INH QIDR [facility] Stop: 08/20/23 06:59 Last Admin: 07/29/23 09:59 Dose: 0.5 mg Levalbuterol HCl (Levalbuterol 1.25 Mg/3 Ml Neb) 1.25 mg NEB QIDR JAQUELIN Stop: 08/20/23 06:59 Last Admin: 07/29/23 09:58 Dose: 1.25 mg Losartan Potassium (Losartan Potassium 50 Mg Tab) 50 mg PO QAM [facility] Stop: 08/26/23 13:59 Last Admin: 07/29/23 11:21 Dose: 50 mg Metoprolol Succinate (Metoprolol Succ 25mg Ext Rel Tab) 25 mg PO DAILY JAQUELIN Stop: 08/20/23 08:59 Last Admin: 07/29/23 11:20 Dose: 25 mg Miscellaneous (Remove Nicoderm Patch) 1 each N/A DAILY@0859 JAQUELIN Stop: 08/28/23 08:58 Last Admin: 07/29/23 08:51 Dose: 1 each Multivitamins (Multivitamin Tab) 1 tab PO QAM JAQUELIN Stop: 08/20/23 08:59 Last Admin: 07/29/23 11:25 Dose: 1 tab Nicotine (Nicotine 7 Mg/24 Hr Tdsy) 7 mg TD QAM JAQUELIN Stop: 08/28/23 08:59 Last Admin: 07/29/23 08:56 Dose: Not Given Pantoprazole Sodium (Pantoprazole 40 Mg Tab) 40 mg PO DAILYBB [facility] Stop: 08/20/23 06:29 Last Admin: 07/29/23 05:00 Dose: 40 mg Prednisone (Prednisone 50 Mg Tab) 50 mg PO DAILY JAQUELIN Stop: 07/31/23 09:01 Last Admin: 07/29/23 11:19 Dose: 50 mg Prednisone (Prednisone 20 Mg Tab) 40 mg PO DAILY JAQUELIN Stop: 08/03/23 09:01 Prednisone (Prednisone 20 Mg Tab) 20 mg PO DAILY JAQUELIN Stop: 08/06/23 09:01 Prednisone (Prednisone 10 Mg Tablet) 10 mg PO DAILY JAQUELIN Stop: 08/09/23 09:01 Prednisone (Prednisone 5 Mg Tab) 5 mg PO DAILY JAQUELIN Stop: 08/12/23 09:01 Psyllium Hydrophilic Mucilloid (Psyllium Or Guar Gum Fiber Powder Packet) 1 pkt PO DAILY PRN PRN Reason: Constipation Stop: 08/19/23 23:41 Sodium Chloride (Sodium Chlor 7% 4 Ml Neb) 4 ml NEB BIDR [facility] Stop: 08/21/23 18:59 Last Admin: 07/28/23 20:12 Dose: 4 ml (3) Community acquired pneumonia Laterality: left Lung location: upper lobe of lung Qualified Code(s): J18.9 - Pneumonia, unspecified organism
--- NOTE | 2023-07-29 15:18 | Critical Care Progress Note ---
Date of Service July 29, 2023 Assessment & Plan (1) Community acquired pneumonia: (2) Acute respiratory failure with hypoxia: (3) COPD (chronic obstructive pulmonary disease): (4) Immunocompromised state: (5) Pleural effusion: Plan 58-year-old female with history of rheumatoid arthritis on chronic immunosuppressive therapy who presents to the ICU due to mental status change and hypoxemic respiratory failure. She was intubated 07/24/2023.: Extubated 07/27 Acute hypoxic respiratory insufficiency/failure -Currently improved off noninvasive mechanical ventilation -Expand antibiotic coverage to 14-day treatment given ongoing infiltrative changes seen on radiography and hypoxia -2-week prednisone taper secondary to underlying structural lung disease most likely related to nicotine dependence -Denies chest pain: ST changes nonspecific, I believe this represents type II ischemia, venous duplex unremarkable, CTA previously negative. -[place] DVT prophylaxis, I doubt the hypoxia is related to venous thromboembolism and more consistent with VQ mismatch -Aggressive pulmonary toilet Admission and Anticipated Discharge Date Admission Date: July 20, 2023 Supervising Physician Co-Signing Physician Notes I have personally spent 30 minutes of critical care time in the direct management of this patient. This is a life/limb threatening event. This includes time spent evaluating patient, direct bedside care, chart review, placing orders, interpretation of diagnostic studies, discussion with consult ants, patient, and/or family members regarding treatment decisions, as well as other required patient management activities. This time is exclusive of all separately billable procedures, and teaching time and separate from and in addition to any other critical care service time. Subjective Patient feels generally unwell, denies chest pain, is admitting to mild shortness of breath. Physical Exam Physical Exam: General: Alert. nontoxic. Oriented x 3 clear insight to ongoing process Skin: Warm, dry, Head: Atraumatic Ears, nose, mouth and throat: airway patent Cardiovascular: Normal peripheral perfusion Respiratory: no respiratory distress, nasal cannula present, speaks in full sentences Gastrointestinal: Non distended Musculoskeletal: No deformity Results & Data Results & Data Vital Signs (Past 12 Hours) Vital Signs Temp Pulse Pulse Resp BP BP Pulse Ox 07/29/23 12:48 07/29/23 12:00 105 H 27 H 123/79 92 07/29/23 11:00 113 H 24 142/94 H 92 07/29/23 10:12 110 H 29 H 113/81 93 07/29/23 10:00 110 H 27 H 97 07/29/23 09:59 113 H 28 H 91 07/29/23 09:59 109 H 28 H 92 07/29/23 09:30 116 H 29 H 122/84 91 07/29/23 09:07 37.8 C H 07/29/23 09:00 134/82 07/29/23 09:00 117 H 38 H 91 07/29/23 08:30 113 H 36 H 116/79 92 07/29/23 08:00 115 H 36 H 113/73 92 07/29/23 07:31 121 H 35 H 141/70 H 90 07/29/23 07:00 119 H 28 H 129/93 94 07/29/23 06:30 119 H 37 H 109/89 91 07/29/23 06:26 115 H 37 H 92 07/29/23 06:05 117 H 44 H 100 07/29/23 05:59 111 H 40 H 97 07/29/23 05:50 109 H 135/110 H 07/29/23 05:39 36.8 C 140 H 42 H 181/124 H 92 07/29/23 05:11 127 H 30 H 122/92 92 07/29/23 04:58 138 H 30 H 07/29/23 04:17 36.5 C 112 H 18 174/83 H 94 O2 Del Method O2 Flow Rate FiO2 07/29/23 12:48 Nasal Cannula 3 07/29/23 12:00 Nasal Cannula 3 07/29/23 11:00 Nasal Cannula 3 07/29/23 10:12 07/29/23 10:00 07/29/23 09:59 2 07/29/23 09:59 BiPAP 2 93 07/29/23 09:30 BiPAP 07/29/23 09:07 07/29/23 09:00 07/29/23 09:00 BiPAP 07/29/23 08:30 BiPAP 07/29/23 08:00 07/29/23 07:31 BiPAP 07/29/23 07:00 BiPAP 07/29/23 06:30 07/29/23 06:26 4 07/29/23 06:05 BiPAP 6 07/29/23 05:59 4 07/29/23 05:50 07/29/23 05:39 Nasal Cannula 4 07/29/23 05:11 Nasal Cannula 4 07/29/23 04:58 07/29/23 04:17 Oxymask 4 Critical Care Results & Data Vital Signs (Past 12 Hours) Vital Signs Temp Pulse Pulse Resp BP BP Pulse Ox 07/29/23 12:48 07/29/23 12:00 105 H 27 H 123/79 92 07/29/23 11:00 113 H 24 142/94 H 92 07/29/23 10:12 110 H 29 H 113/81 93 07/29/23 10:00 110 H 27 H 97 07/29/23 09:59 113 H 28 H 91 07/29/23 09:59 109 H 28 H 92 07/29/23 09:30 116 H 29 H 122/84 91 07/29/23 09:07 37.8 C H 07/29/23 09:00 134/82 07/29/23 09:00 117 H 38 H 91 07/29/23 08:30 113 H 36 H 116/79 92 07/29/23 08:00 115 H 36 H 113/73 92 07/29/23 07:31 121 H 35 H 141/70 H 90 07/29/23 07:00 119 H 28 H 129/93 94 07/29/23 06:30 119 H 37 H 109/89 91 07/29/23 06:26 115 H 37 H 92 07/29/23 06:05 117 H 44 H 100 07/29/23 05:59 111 H 40 H 97 07/29/23 05:50 109 H 135/110 H 07/29/23 05:39 36.8 C 140 H 42 H 181/124 H 92 07/29/23 05:11 127 H 30 H 122/92 92 07/29/23 04:58 138 H 30 H 07/29/23 04:17 36.5 C 112 H 18 174/83 H 94 O2 Del Method O2 Flow Rate FiO2 07/29/23 12:48 Nasal Cannula 3 07/29/23 12:00 Nasal Cannula 3 07/29/23 11:00 Nasal Cannula 3 07/29/23 10:12 07/29/23 10:00 07/29/23 09:59 2 07/29/23 09:59 BiPAP 2 93 07/29/23 09:30 BiPAP 07/29/23 09:07 07/29/23 09:00 07/29/23 09:00 BiPAP 07/29/23 08:30 BiPAP 07/29/23 08:00 07/29/23 07:31 BiPAP 07/29/23 07:00 BiPAP 07/29/23 06:30 07/29/23 06:26 4 07/29/23 06:05 BiPAP 6 07/29/23 05:59 4 07/29/23 05:50 07/29/23 05:39 Nasal Cannula 4 07/29/23 05:11 Nasal Cannula 4 07/29/23 04:58 07/29/23 04:17 Oxymask 4 Lab & Micro Results (Past 24 Hours) RBC 3.59 M/uL (4.20-5.40) L 07/29/23 WBC 19.01 K/ul (4.8-10.8) H 07/29/23 Hgb 11.8 g/dl (12.0-16.0) L 07/29/23 Hct 34.6 % (37.0-47.0) L 07/29/23 MCV 96.4 fL (80.0-100.0) 07/29/23 MCH 32.9 pg (25.0-34.0) 07/29/23 MCHC 34.1 g/dL (32.0-36.0) 07/29/23 RDW Standard Deviation 51.7 fL (36.4-46.3) H 07/29/23 RDW Coefficient of Variation 14.6 % (11.5-14.5) H 07/29/23 Plt Count 163 K/uL (130-400) 07/29/23 MPV 11.1 fL (9.4-12.4) 07/29/23 Neutrophils (%) (Auto) 85.1 % 07/29/23 Lymphocytes (%) (Auto) 5.2 % 07/29/23 Monocytes # (Auto) 1.09 K/uL (0.11-0.59) H 07/29/23 Eosinophils # (Auto) 0.15 K/uL (0.00-0.50) 07/29/23 Immature Granulocyte % (Auto) 2.9 % 07/29/23 Neutrophils # (Auto) 16.17 K/uL (1.40-6.50) H 07/29/23 Lymphocytes # (Auto) 0.99 K/uL (1.20-3.40) L 07/29/23 Monocytes # (Auto) 1.09 K/uL (0.11-0.59) H 07/29/23 Eosinophils # (Auto) 0.15 K/uL (0.00-0.50) 07/29/23 Basophils # (Auto) 0.06 K/uL (0.00-0.20) 07/29/23 Immature Granulocyte # (Auto) 0.55 K/uL (0.01-0.20) H 07/29 Na 139 mmol/L (136-145) 07/29/23 K 3.8 mmol/L (3.5-5.1) 07/29/23 Cl 103 mmol/L (98-107) 07/29/23 CO2 25 mmol/L (21-32) 07/29/23 Anion Gap 11 (3-11) 07/29/23 BUN 26 mg/dl (6-23) H 07/29/23 Creatinine 0.51 mg/dl (0.6-1.2) L 07/29/23 Estimated GFR ( Amer) 122.8 ml/min 07/29/23 Estimated GFR (Non-Af Amer) 106.0 ml/min 07/29/23 BUN/Creatinine Ratio 51.0 (10-20) H 07/29/23 Glu 167 mg/dl (70-99(Fasting)) H 07/29/23 Ca 9.1 mg/dl (8.6-10.3) 07/29/23 Mg 1.6 mg/dl (1.7-2.4) L 07/29/23 05:50 Calcium Level 9.1 mg/dl (8.6-10.3) 07/29/23 05:50 Microbiology 07/24/23 14:22 Acid Fast Bacilli Smear - Final Bronch Wash,Left Lower Lobe Acid Fast Bacilli Culture - Preliminary No Acid-Fast Bacilli Isolated - Report 1, Additional Report to Follow. 07/26/23 20:04 Aerobic Blood Culture - Preliminary Blood No growth in Aerobic bottle after 48 hours. Anaerobic Blood Culture - Preliminary No growth in Anaerobic bottle after 48 hours. 07/26/23 20:04 Aerobic Blood Culture - Preliminary Blood No growth in Aerobic bottle after 48 hours. Anaerobic Blood Culture - Preliminary No growth in Anaerobic bottle after 48 hours. 07/27/23 09:33 Gram Stain - Final Pleural Fluid Aerobic and Anaerobic Culture - Preliminary No growth to date. Diagnostic Findings (Past 24 Hours) Chest X-Ray 07/29/23 06:19 XR chest 1V portable CLINICAL HISTORY: eval for pneumo/lobar collapse/consolidation COMPARISON STUDY: Chest radiograph and chest CT July 27, 2023. FINDINGS: The lines and tubes have been removed. There is no pneumothorax. Small left pleural effusion is again noted. Extensive left lung consolidation consistent with pneumonia has slightly progressed. Mild right lower lung opacity has increased. Cardiomediastinal silhouette is stable. Emphysema is better depicted on prior CT. IMPRESSION: 1. Extensive left lung pneumonia, slightly increased since prior exam. 2. Mild increase in right lower lung opacity which is also likely infectious. 3. Small left pleural effusion. ACT 112: Negative or not required by law. Electronically signed by: Ebenezer Carroll M.D. 07/29/2023 6:58 AM Venous Doppler Study 07/29/23 06:43 BILATERAL LOWER EXTREMITY VENOUS DOPPLER CLINICAL HISTORY: acute dyspnea, tachycardia- eval for DVT COMPARISON STUDY: Bilateral lower extremity venous Doppler ultrasound July 21, 2023. TECHNIQUE: Sonography of the deep venous system of the bilateral lower extremities was performed. Compression and augmentation were evaluated. FINDINGS: The bilateral common femoral, superficial femoral and popliteal veins were compressible. Augmentation was normal. Flow was shown within the deep calf vessels. IMPRESSION: No evidence of deep venous thrombus within the bilateral lower extremities. ACT 112: Negative or not required by law. Electronically signed by: Ebenezer Carroll M.D. 07/29/2023 8:19 AM I & O Totals 24 Hours 07/28/23 07/29/23 07/30/23 06:59 06:59 06:59 Intake Total 1250.944 / 1250.944 150 / 150 400 / 400 Output Total 2600 / 2600 2603 / 2603 1400 / 1400 Balance -1349.056 / -1349.056 -2453 / -2453 -1000 / -1000 Cumulative 07/20/23 16:10 thru 07/29/23 15:00 Intake Total 86302.033 Output Total 09341 Balance 4298.033 RT Ventilator Mngmt (Last Documented) Ventilator Ordered Settings Ventilator Support Mode CPAP 07/27/23 12:05 Respiratory Rate 27 07/29/23 12:00 Ventilator Tidal Volume 350 07/27/23 09:18 Setting Minute Ventilation 7.8 07/27/23 12:05 Ventilator Positive Pressure 7 07/27/23 12:05 Support Setting Positive End Expiratory 5 07/27/23 12:05 Pressure Fraction of Inspired Oxygen 93 07/29/23 09:59 Machine Comment found pt on current settings 07/25/23 20:00 Ventilator - PT Measurements Respiratory Rate 27 Exhaled Tidal Volume 736 Minute Ventilation 7.8 Peak Inspiratory Airway 13 Pressure Plateau Pressure 14.1 Respiratory Cycle Inspiratory: 1:4.9 Expiratory Ratio Inspiratory Phase Time 0.50 End-Tidal CO2 33 Static Lung Compliance 43.70 Dynamic Lung Compliance 92.00 Normal Static Lung Compliance 49.00 Patient Measurements Comment Pt supined at this time. Coding Level of Care Code 42433 CRITICAL CARE 1ST 30-74M Diagnoses Community acquired pneumonia of left upper lobe of lung J18.9 Laterality: left Lung location: upper lobe of lung Acute respiratory failure with hypoxia J96.01 COPD (chronic obstructive pulmonary disease) J44.9 COPD type: chronic bronchitis Immunocompromised state D84.9 Pleural effusion J90 (1) Community acquired pneumonia Laterality: left Lung location: upper lobe of lung Qualified Code(s): J18.9 - Pneumonia, unspecified organism (3) COPD (chronic obstructive pulmonary disease) COPD type: chronic bronchitis
[2023-07-29] MEDS: levoFLOXacin/D5W 750 MG/150 ML BAG IV SCH (17:47)
--- NOTE | 2023-07-29 18:48 | Electrocardiogram Report ---
Test Reason : Blood Pressure : / mmHG Vent. Rate : 111 BPM Atrial Rate : 111 BPM P-R Int : 136 ms QRS Dur : 086 ms QT Int : 306 ms P-R-T Axes : -07 040 047 degrees QTc Int : 416 ms Sinus tachycardia with occasional Premature ventricular complexes Nonspecific ST and T wave abnormality Abnormal ECG When compared with ECG of 23-JUL-2023 22:23, Premature ventricular complexes are now Present Non-specific change in ST segment in Inferior leads Non-specific change in ST segment in Lateral leads Confirmed by Delroy Monge ([id number]) on 07/29/2023 6:47:55 PM Referred By: REFERRED SELF Confirmed By:Delroy Monge
[2023-07-29] MEDS: ACETAMINOPHEN W/CODEINE #3 1 TAB PO PRN (19:44)
[2023-07-30 05:07] LABS: Basophils # (auto) 0.03 K/uL (0.00-0.20); Basophils % (auto) 0.2 %; Hematocrit (blood only) 31.5 % (37.0-47.0); Hemoglobin 10.7 g/dl (12.0-16.0); Immature Granulocytes # (auto) 0.48 K/uL (0.01-0.20); Lymphocytes # (auto) 1.02 K/uL (1.20-3.40); Lymphocytes % (auto) 6.4 %; Mean Corpuscular Hemoglobin 32.5 pg (25.0-34.0); Mean Corpuscular Volume 95.7 fL (80.0-100.0); Mean Platelet Volume 11.6 fL (9.4-12.4); Monocytes # (auto) 1.02 K/uL (0.11-0.59); Monocytes % (auto) 6.4 %; Platelet Count 102 K/uL (130-400); RDW Coefficient of Variation 14.1 % (11.5-14.5); RDW Standard Deviation 49.4 fL (36.4-46.3); Red Blood Count 3.29 M/uL (4.20-5.40); White Blood Count 16.05 K/ul (4.8-10.8)
[2023-07-30 05:23] LABS: BUN Creatinine Ratio 59.7 (10-20); Calcium 8.4 mg/dl (8.6-10.3); Creatinine Clr Calc Pharmacy 86.3 ml/min; Est GFR (African American) 115.2 ml/min; Est GFR (Non-African American) 99.4 ml/min; Magnesium 1.8 mg/dl (1.7-2.4); Phosphorus 4.6 mg/dl (2.5-4.9); Potassium 3.3 mmol/L (3.5-5.1)
[2023-07-30] MEDS: PANTOprazole 40 MG TAB PO SCH (05:51)
[2023-07-30] MEDS: POTASSIUM CHLORIDE CRTAB 20 MEQ TABCR PO SCH ×2 (05:51→09:34)
[2023-07-30] MEDS: MAGNESIUM SULFATE / D5W 1 GM/100 ML BAG IV SCH ×2 (05:51→07:25)
[2023-07-30] MEDS ORDERED: ICU ELECTROLYTE REPLACEMENT PROTOCOL SCH (06:00)
[2023-07-30] MEDS: SODIUM CHLOR 7% 4 ML NEB NEB SCH ×2 (07:05→20:06)
[2023-07-30] MEDS: LEVALBUTEROL 1.25 MG/3 ML NEB NEB SCH ×4 (07:05→20:06)
[2023-07-30] MEDS: IPRATROPIUM BROMIDE NEB SOLN 0.02% 2.5 ML VIAL INH SCH ×4 (07:06→20:06)
[2023-07-30] MEDS: carvediloL 6.25 MG TAB PO SCH ×2 (07:59→16:53)
[2023-07-30] MEDS: CALCIUM CITRATE 950 MG TAB PO SCH ×3 (08:36→17:27)
[2023-07-30] MEDS: ENOXAPARIN INJ 40 MG/0.4 ML SYR SQ SCH (08:37)
[2023-07-30] MEDS: ESCITALOPRAM OXALATE 10 MG TAB PO SCH (08:37)
[2023-07-30] MEDS: dilTIAZem HCL 240 MG CAPCR PO SCH (08:37)
[2023-07-30] MEDS: FEXOFENADINE HCL 180 MG TAB PO SCH (08:38)
--- NOTE | 2023-07-30 08:38 | Critical Care Progress Note ---
Date of Service July 30, 2023 Assessment & Plan (1) Community acquired pneumonia: (2) Acute respiratory failure with hypoxia: (3) COPD (chronic obstructive pulmonary disease): (4) Immunocompromised state: (5) Pleural effusion: Plan 58-year-old female with history of rheumatoid arthritis on chronic immunosuppressive therapy who presents to the ICU due to mental status change and hypoxemic respiratory failure. She was intubated 07/24/2023.: Extubated 07/27 Acute hypoxic respiratory insufficiency/failure -Toelrated off NIV for > 24 hours -Expand antibiotic coverage to 14-day treatment given ongoing infiltrative changes seen on radiography and hypoxia: improving -2-week prednisone taper secondary to underlying structural lung disease most likely related to nicotine dependence -Denies chest pain: ST changes nonspecific, I believe this represents type II ischemia, venous duplex unremarkable, CTA previously negative, Trop downtrending -Aggressive pulmonary toilet - PT/OT consult Downgrade out of ICU Admission and Anticipated Discharge Date Admission Date: July 20, 2023 Subjective Feels improved today, no chest pain no shortness of breath. Was able to demonstrate incentive spirometer at the bedside. Physical Exam Physical Exam: General: Alert. nontoxic. Oriented x 3 clear insight to ongoing process Skin: Warm, dry, Head: Atraumatic Ears, nose, mouth and throat: airway patent Cardiovascular: Normal peripheral perfusion Respiratory: no respiratory distress, nasal cannula present, speaks in full sentences Gastrointestinal: Non distended Musculoskeletal: No deformity Results & Data Results & Data Vital Signs (Past 12 Hours) Vital Signs Temp Pulse Pulse Resp BP Pulse Ox O2 Del Method 07/30/23 07:15 Nasal Cannula 07/30/23 07:06 68 18 92 Nasal Cannula 07/30/23 07:00 68 19 102/61 93 Nasal Cannula 07/30/23 07:00 36.7 C 07/30/23 06:00 71 20 93/66 L 91 07/30/23 05:00 71 15 103/61 88 L 07/30/23 04:46 36.5 C 07/30/23 04:00 76 22 110/64 88 L 07/30/23 03:00 75 17 108/61 90 07/30/23 02:01 74 16 108/66 92 07/30/23 02:00 73 24 91 07/30/23 01:00 77 19 93/58 L 91 07/30/23 00:33 36.0 C L 07/30/23 00:00 83 24 95/7 L 94 07/29/23 23:41 83 07/29/23 23:32 79 20 92 07/29/23 23:00 78 17 102/62 92 07/29/23 22:00 82 20 97/61 L 91 07/29/23 21:57 82 21 97/65 L 91 07/29/23 21:01 87 25 H 87/56 L 92 07/29/23 21:00 84 24 92 O2 Flow Rate 07/30/23 07:15 5 07/30/23 07:06 2 07/30/23 07:00 5 07/30/23 07:00 07/30/23 06:00 07/30/23 05:00 07/30/23 04:46 07/30/23 04:00 07/30/23 03:00 07/30/23 02:01 07/30/23 02:00 07/30/23 01:00 07/30/23 00:33 07/30/23 00:00 07/29/23 23:41 07/29/23 23:32 3 07/29/23 23:00 07/29/23 22:00 07/29/23 21:57 07/29/23 21:01 07/29/23 21:00 Critical Care Results & Data Vital Signs (Past 12 Hours) Vital Signs Temp Pulse Pulse Resp BP Pulse Ox O2 Del Method 07/30/23 08:52 79 22 103/72 92 Nasal Cannula 07/30/23 08:00 74 19 114/67 90 Nasal Cannula 07/30/23 07:15 Nasal Cannula 07/30/23 07:06 68 18 92 Nasal Cannula 07/30/23 07:00 68 19 102/61 93 Nasal Cannula 07/30/23 07:00 36.7 C 07/30/23 06:00 71 20 93/66 L 91 07/30/23 05:00 71 15 103/61 88 L 07/30/23 04:46 36.5 C 07/30/23 04:00 76 22 110/64 88 L 07/30/23 03:00 75 17 108/61 90 07/30/23 02:01 74 16 108/66 92 07/30/23 02:00 73 24 91 07/30/23 01:00 77 19 93/58 L 91 07/30/23 00:33 36.0 C L 07/30/23 00:00 83 24 95/7 L 94 07/29/23 23:41 83 07/29/23 23:32 79 20 92 07/29/23 23:00 78 17 102/62 92 07/29/23 22:00 82 20 97/61 L 91 07/29/23 21:57 82 21 97/65 L 91 O2 Flow Rate 07/30/23 08:52 5 07/30/23 08:00 5 07/30/23 07:15 5 07/30/23 07:06 2 07/30/23 07:00 5 07/30/23 07:00 07/30/23 06:00 07/30/23 05:00 07/30/23 04:46 07/30/23 04:00 07/30/23 03:00 07/30/23 02:01 07/30/23 02:00 07/30/23 01:00 07/30/23 00:33 07/30/23 00:00 07/29/23 23:41 07/29/23 23:32 3 07/29/23 23:00 07/29/23 22:00 07/29/23 21:57 Lab & Micro Results (Past 24 Hours) RBC 3.29 M/uL (4.20-5.40) L 07/30/23 WBC 16.05 K/ul (4.8-10.8) H 07/30/23 Hgb 10.7 g/dl (12.0-16.0) L 07/30/23 Hct 31.5 % (37.0-47.0) L 07/30/23 MCV 95.7 fL (80.0-100.0) 07/30/23 MCH 32.5 pg (25.0-34.0) 07/30/23 MCHC 34.0 g/dL (32.0-36.0) 07/30/23 RDW Standard Deviation 49.4 fL (36.4-46.3) H 07/30/23 RDW Coefficient of Variation 14.1 % (11.5-14.5) 07/30/23 Plt Count 102 K/uL (130-400) L 07/30/23 MPV 11.6 fL (9.4-12.4) 07/30/23 Neutrophils (%) (Auto) 84.0 % 07/30/23 Lymphocytes (%) (Auto) 6.4 % 07/30/23 Monocytes # (Auto) 1.02 K/uL (0.11-0.59) H 07/30/23 Eosinophils # (Auto) 0.00 K/uL (0.00-0.50) 07/30/23 Immature Granulocyte % (Auto) 3.0 % 07/30/23 Neutrophils # (Auto) 13.50 K/uL (1.40-6.50) H 07/30/23 Lymphocytes # (Auto) 1.02 K/uL (1.20-3.40) L 07/30/23 Monocytes # (Auto) 1.02 K/uL (0.11-0.59) H 07/30/23 Eosinophils # (Auto) 0.00 K/uL (0.00-0.50) 07/30/23 Basophils # (Auto) 0.03 K/uL (0.00-0.20) 07/30/23 Immature Granulocyte # (Auto) 0.48 K/uL (0.01-0.20) H 07/30 Na 140 mmol/L (136-145) 07/30/23 K 3.3 mmol/L (3.5-5.1) L 07/30/23 Cl 102 mmol/L (98-107) 07/30/23 CO2 29 mmol/L (21-32) 07/30/23 Anion Gap 9 (3-11) 07/30/23 BUN 37 mg/dl (6-23) H 07/30/23 Creatinine 0.62 mg/dl (0.6-1.2) 07/30/23 Estimated GFR ( Amer) 115.2 ml/min 07/30/23 Estimated GFR (Non-Af Amer) 99.4 ml/min 07/30/23 BUN/Creatinine Ratio 59.7 (10-20) H 07/30/23 Glu 112 mg/dl (70-99(Fasting)) H 07/30/23 Ca 8.4 mg/dl (8.6-10.3) L 07/30/23 Phosphorus Level 4.6 mg/dl (2.5-4.9) 07/30/23 Mg 1.8 mg/dl (1.7-2.4) 07/30/23 04:34 Calcium Level 8.4 mg/dl (8.6-10.3) L 07/30/23 04:34 Microbiology 07/24/23 14:22 Acid Fast Bacilli Smear - Final Bronch Wash,Left Lower Lobe Acid Fast Bacilli Culture - Preliminary No Acid-Fast Bacilli Isolated - Report 1, Additional Report to Follow. I & O Totals 24 Hours 07/29/23 07/30/23 07/31/23 06:59 06:59 06:59 Intake Total 150 / 150 550 / 550 200 / 200 Output Total 2603 / 2603 2515 / 2515 Balance -2453 / -2453 -1965 / -1965 200 / 200 Cumulative 07/20/23 16:10 thru 07/30/23 09:26 Intake Total 18919.033 Output Total 62282 Balance 3533.033 RT Ventilator Mngmt (Last Documented) Ventilator Ordered Settings Ventilator Support Mode CPAP 07/27/23 12:05 Respiratory Rate 22 07/30/23 08:52 Ventilator Tidal Volume 350 07/27/23 09:18 Setting Minute Ventilation 7.8 07/27/23 12:05 Ventilator Positive Pressure 7 07/27/23 12:05 Support Setting Positive End Expiratory 5 07/27/23 12:05 Pressure Fraction of Inspired Oxygen 93 07/29/23 09:59 Machine Comment found pt on current settings 07/25/23 20:00 Ventilator - PT Measurements Respiratory Rate 22 Exhaled Tidal Volume 736 Minute Ventilation 7.8 Peak Inspiratory Airway 13 Pressure Plateau Pressure 14.1 Respiratory Cycle Inspiratory: 1:4.9 Expiratory Ratio Inspiratory Phase Time 0.50 End-Tidal CO2 33 Static Lung Compliance 43.70 Dynamic Lung Compliance 92.00 Normal Static Lung Compliance 49.00 Patient Measurements Comment Pt supined at this time. Coding Level of Care Code 63045 SUB INP/OBS CARE 3/50MIN Diagnoses Community acquired pneumonia of left upper lobe of lung J18.9 Laterality: left Lung location: upper lobe of lung Acute respiratory failure with hypoxia J96.01 COPD (chronic obstructive pulmonary disease) J44.9 COPD type: chronic bronchitis Immunocompromised state D84.9 Pleural effusion J90 (1) Community acquired pneumonia Laterality: left Lung location: upper lobe of lung Qualified Code(s): J18.9 - Pneumonia, unspecified organism (3) COPD (chronic obstructive pulmonary disease) COPD type: chronic bronchitis
[2023-07-30] MEDS: FOLIC ACID 1 MG TAB PO SCH (08:39)
[2023-07-30] MEDS: FUROSEMIDE INJ 20 MG/2 ML VIAL IV SCH ×2 (08:39→13:02)
[2023-07-30] MEDS: LOSARTAN POTASSIUM 50 MG TAB PO SCH (08:39)
[2023-07-30] MEDS: METOPROLOL SUCC 25MG EXT REL TAB PO SCH (08:40)
[2023-07-30] MEDS: predniSONE 50 MG TAB PO SCH (08:40)
[2023-07-30] MEDS: MULTIVITAMIN TAB PO SCH (08:40)
[2023-07-30] MEDS: NICOTINE 7 MG/24 HR TDSY TD SCH (08:40)
--- NOTE | 2023-07-30 12:33 | Hospitalist Progress Note ---
Date of Service July 30, 2023 Assessment & Plan (1) Severe sepsis: (2) Sepsis: (3) Community acquired pneumonia: (4) Hyponatremia: (5) COPD exacerbation: (6) Encephalopathy: (7) Immunocompromised state: (8) Elevated troponin: (9) Abnormal liver enzymes: (10) Prediabetes: (11) Anxiety: Plan Pt is a 58yoF with PMHx significant for hypertension, PSVT, COPD, RA on immunosuppressive regimen, NAFLD, ADD/anxiety/mood disorder, cervical dysplasia, erythema nodosum, ongoing tobacco abuse admitted with sepsis in the setting of of pneumonia. Sepsis COPD exacerbation Pneumonia Pt with SOB from home WBC elevated at 14.68 on admission, has since become normal Chest xray concerning for pneumonia with opacities noted on the left CT chest with lingula consolidation- follow up CT chest recommended in 1-2 months to ensure resolution V/Q scan with indeterminate to high suspicion for PE- continue heparin at this time Sputum Cx with NGTD Blood Cx x 2 with NGTD Biofire negative, UA not suggestive of infection Pt immunocompromised Originally on Rocephin and doxycycline, broadened to Zosyn, switched doxy to azithromycin oxygen supplementation as needed, pt now with occasional increased oxygen need Pulmonology consult placed, appreciate recs -MRSA Screen negative -Legionella is positive -continue Zosyn, switch doxy to azithromycin -discontinue steroids -Hold all immunosuppressants -Start percussive vest therapy 4 times daily -start hypertonic saline twice daily -continue nebs QID -wean oxygen as tolerated with goal above 90% Condition has been deteriorating as of this morning She has been requiring BiPAP to maintain saturation More wheezing and shortness of breath this afternoon Will get ABG and chest x-ray Her condition got worse and she was transferred to ICU and put her on mechanical ventilator She remains stable on the machine Appreciate mine wedge sawyer input and recommendation Status post left thoracentesis of 500 mL yellow-colored fluid-sent for studies Status post extubation on 07/28/2023 Feeling much better following extubation denies any significant symptoms except weakness and tiredness Condition deteriorated with increase tachypnea and tachycardia and was transferred back to ICU Has been feeling a little better but remains extremely weak and lethargic Has a reevaluation by the marine services technician and the mine wedge sawyer Will give her in the ICU today for monitoring and likely transfer to telemetry tomorrow Repeat chest x-ray is little worse and has been getting Lasix 20 mg IV 3 times daily She has been stable and does not have any more increasing shortness of breath, tachycardia or any other significant symptoms Encephalopathy Possibly secondary to sepsis SIRS plus encephalopathy Head CT with no acute changes VBG on admission with low CO2 Hyponatremic, sodium 127 on admission- could be contributory Tox profile ordered for completion and to rule out a toxic cause-still pending Brain MRI unremarkable Consider Neurology consult if symptoms do not improve- pt more alert today Minimize use of narcotics for pain, receiving Ativan per AWSS protocol No more and cephalopathy Hyponatremia Sodium 127 on admission Home bupropion possible contributory Hyponatremic workup, careful correction of sodium nephrology consult- appreciate recs IV fluid has been discontinued and the sodium level has not changed Lasix doses have been increased to 20 mg 3 times daily Will monitor PRP and electrolytes As Legionella pneumonia and likely the cause for hyponatremia Appreciate nephrology input and recommendation Sodium level is improved to 132 as of 07/26/2023 Sodium level is up to 134 today Sodium has been normalized at 143 on 07/28/2020 Sodium level has been normalized-will follow marine services technician recommendation for use of Lasix RA Immunocompromised status hx rheumatoid arthritis on immunosuppressive regimen Hold Arava and Rinvoq RA medications for now until patient recovers from infection Hold hydroxychloroquine Elevated Troponins hs-Trop elevated at 17.6 to 28.5 to 26.3 EKG with sinus tach Echo ordered with no acute changes Likely elevation of trop due to demand Troponin has been trending down with recent bump due to tachycardia induced strain Livedo Reticularis Pt's with picture of rash Reticular pattern on lower extremities, states it comes and goes Was not present on lower extremities at time of exam today Associated with hypercoaguable states, vasculitis D-dimer ordered and elevated -lower extremity doppler with no DVT -V/Q scan with indeterminate to high suspicion for PE- continue heparin at this time Hypertension hx PSVT Continue home metoprolol and Diltiazem Hold home losartan Continue to monitor Blood pressure remains stable on the lower side Blood pressure seems to be high today at 170/102 Blood pressure has been running on the lower side Possible alcoholic hepatitis Abnormal LFTs Hx NAFLD Concern for alcohol abuse as per outpatient [facility] cardiology documentation last month Pt with episode on 07/21 noting she is anxious, having a headache, given one time dose of Ativan 0.5mg Concern for active withdrawal at this time AWSS at risk protocol switched to active protocol with Ativan, consider addition of gabapentin in the setting of encephalopathy DT precautions Continue to monitor for signs of alcohol withdrawal LFTs are stable and is mildly elevated-LFTs are almost normal LFTs have been normalized ADD/anxiety/mood disorder Home bupropion on hold in setting of hyponatremia and encephalopathy Holding home lexapro Hyperglycemia Hgba1c of 5.7 indicating prediabetes Monitor Ongoing tobacco abuse Nicotine patch Encourage cessation Diet: Clear liquid DVT prophylaxis: Lovenox subcu Full code Dispo: PT/OT ordered Prognosis remains guarded Admission and Anticipated Discharge Date Admission Date: July 20, 2023 Subjective 07/24/2023 The patient was seen and examined in telemetry unit She remains drowsy but otherwise alert and awake Denies any significant complaints Has been on BiPAP and saturating normally 07/25/2023 The patient was seen and examined in ICU She remains ventilated and sedated 07/26/2023 The patient was seen and examined in ICU in presence of the She remains intubated and sedated 07/27/2023 The patient was seen and examined in ICU in presence of the She remains intubated and sedated Has had left thoracentesis today and has been requiring minimal sedation 07/28/2023 The patient was seen and examined in ICU in presence of the She is extubated and has been feeling much better She remains generally weak and lethargy 07/29/2023 The patient was seen and examined in ICU in presence of the She was transferred back to ICU last evening with increasing shortness of breath and tachycardia Has been feeling better since this morning though with extreme weakness and tiredness 07/30/2023 The patient was seen and examined in ICU She has been stable as per the mine wedge sawyer and will be transferred to telemetry unit for continuation of care He has been feeling much better and complains of generalized weakness Review of Systems Review of Systems: All systems reviewed and are unremarkable except as noted below Physical Exam Physical Exam: Lying in bed with moderate distress due to shortness of breath and weakness Constitutional: well developed, well nourished, + ill appearing and average body habitus Eyes: PERRL, conjunctivae normal, anicteric sclerae ENMT: external ear and nose normal, oropharynx normal Neck: trachea midline, no thyromegaly Respiratory: no respiratory distress Auscultation: + diminished lung sounds and + crackles (Occasional crackles at the bases) Cardiovascular: Rate/Rhythm: regular rate, regular rhythm and + tachycardic Heart Sounds: normal S1 and normal S2; no murmur Extremities: no edema Gastrointestinal (Abdomen): Inspection/Auscultation: normal bowel sounds; abdomen not distended Percussion/Palpation: abdomen soft; abdomen nontender Neurologic: normal touch/pain/proprioception and moves all extremities; no focal motor deficits Lymphatic: no cervical or axillary lymphadenopathy Results & Data Results & Data Vital Signs (Past 12 Hours) Vital Signs Temp Pulse Pulse Resp BP Pulse Ox O2 Del Method 07/30/23 11:23 77 22 89/63 L 89 L Nasal Cannula 07/30/23 11:09 71 17 93/60 L 88 L Nasal Cannula 07/30/23 10:00 71 19 104/68 97 Nasal Cannula 07/30/23 09:57 82 20 92 Nasal Cannula 07/30/23 08:52 79 22 103/72 92 Nasal Cannula 07/30/23 08:00 74 19 114/67 90 Nasal Cannula 07/30/23 07:15 Nasal Cannula 07/30/23 07:06 68 18 92 Nasal Cannula 07/30/23 07:00 68 19 102/61 93 Nasal Cannula 07/30/23 07:00 36.7 C 07/30/23 06:00 71 20 93/66 L 91 07/30/23 05:00 71 15 103/61 88 L 07/30/23 04:46 36.5 C 07/30/23 04:00 76 22 110/64 88 L 07/30/23 03:00 75 17 108/61 90 07/30/23 02:01 74 16 108/66 92 07/30/23 02:00 73 24 91 07/30/23 01:00 77 19 93/58 L 91 07/30/23 00:33 36.0 C L O2 Flow Rate 07/30/23 11:23 3 07/30/23 11:09 3 07/30/23 10:00 3 07/30/23 09:57 2 07/30/23 08:52 5 07/30/23 08:00 5 07/30/23 07:15 5 07/30/23 07:06 2 07/30/23 07:00 5 07/30/23 07:00 07/30/23 06:00 07/30/23 05:00 07/30/23 04:46 07/30/23 04:00 07/30/23 03:00 07/30/23 02:01 07/30/23 02:00 07/30/23 01:00 07/30/23 00:33 Laboratory Results Short CBC 07/30/23 Range/Units 04:34 WBC 16.05 H (4.8-10.8) K/ul Hgb 10.7 L (12.0-16.0) g/dl Hct 31.5 L (37.0-47.0) % Plt Count 102 L (130-400) K/uL BMP 07/30/23 04:34 Sodium 140 Potassium 3.3 L Chloride 102 Carbon Dioxide 29 BUN 37 H Creatinine 0.62 Glucose 112 H Calcium 8.4 L Medications Administered Current Inpatient Medications Acetaminophen (Acetaminophen 325 Mg Tab) 650 mg PO Q6H PRN PRN Reason: Fever or headache Stop: 08/20/23 08:00 Last Admin: 07/27/23 17:12 Dose: 650 mg Acetaminophen/Codeine Phosphate (Acetaminophen W/Codeine #3 1 Tab) 1 tab PO Q4H PRN PRN Reason: Pain Stop: 08/21/23 20:58 Last Admin: 07/29/23 19:44 Dose: 1 tab Calcium Citrate (Calcium Citrate 950 Mg Tab) 950 mg PO PC [facility] Stop: 08/21/23 17:59 Last Admin: 07/30/23 08:36 Dose: 950 mg Carvedilol (Carvedilol 6.25 Mg Tab) 6.25 mg PO BIDM [facility] Stop: 08/26/23 16:59 Last Admin: 07/30/23 07:59 Dose: 6.25 mg Diltiazem HCl (Diltiazem Hcl 240 Mg Capcr) 240 mg PO QAM [facility] Stop: 08/21/23 08:59 Last Admin: 07/30/23 08:37 Dose: 240 mg Enoxaparin Sodium (Enoxaparin Inj 40 Mg/0.4 Ml Syr) 40 mg SQ DAILY [facility] Stop: 08/28/23 09:59 Last Admin: 07/30/23 08:37 Dose: 40 mg Escitalopram Oxalate (Escitalopram Oxalate 10 Mg Tab) 15 mg PO QAM [facility] Stop: 08/20/23 08:59 Last Admin: 07/30/23 08:37 Dose: 15 mg Fexofenadine HCl (Fexofenadine Hcl 180 Mg Tab) 180 mg PO DAILY JAQUELIN Stop: 08/20/23 08:59 Last Admin: 07/30/23 08:38 Dose: 180 mg Folic Acid (Folic Acid 1 Mg Tab) 3 mg PO DAILY JAQUELIN Stop: 08/20/23 08:59 Last Admin: 07/30/23 08:39 Dose: 3 mg Furosemide (Furosemide Inj 20 Mg/2 Ml Vial) 20 mg IV TIDPC JAQUELIN Stop: 08/23/23 11:14 Last Admin: 07/30/23 08:39 Dose: 20 mg Hydromorphone HCl (Hydromorphone Inj 0.5 Mg/0.5 Ml Syr) 0.25 mg IV Q6H PRN PRN Reason: Pain Stop: 08/11/23 13:18 Last Admin: 07/29/23 09:11 Dose: 0.25 mg Hydroxychloroquine Sulfate (Hydroxychloroquine Sulfate 200 Mg Tab) 300 mg PO HS JAQUELIN Stop: 08/19/23 22:55 Last Admin: 07/21/23 22:42 Dose: 300 mg Levofloxacin/Dextrose (Levaquin/D5w) 750 mg in 150 mls @ 100 mls/hr IV Q24H [facility]; Protocol Stop: 08/07/23 23:59 Last Infusion: 07/29/23 20:01 Dose: Infused Ipratropium [place] (Ipratropium [place] Neb Soln 0.02% 2.5 Ml Vial) 0.5 mg INH QIDR JAQUELIN Stop: 08/20/23 06:59 Last Admin: 07/30/23 09:56 Dose: 0.5 mg Levalbuterol HCl (Levalbuterol 1.25 Mg/3 Ml Neb) 1.25 mg NEB QIDR JAQUELIN Stop: 08/20/23 06:59 Last Admin: 07/30/23 09:56 Dose: 1.25 mg Losartan Potassium (Losartan Potassium 50 Mg Tab) 50 mg PO QAM JAQUELIN Stop: 08/26/23 13:59 Last Admin: 07/30/23 08:39 Dose: 50 mg Metoprolol Succinate (Metoprolol Succ 25mg Ext Rel Tab) 25 mg PO DAILY JAQUELIN Stop: 08/20/23 08:59 Last Admin: 07/30/23 08:40 Dose: 25 mg Miscellaneous (Remove Nicoderm Patch) 1 each N/A DAILY@0859 [facility] Stop: 08/28/23 08:58 Last Admin: 07/30/23 07:57 Dose: Not Given Miscellaneous (Icu Electrolyte Replacement Protocol) 1 each N/A BID@06,18 [facility]; Protocol Stop: 08/06/23 05:59 Last Admin: 07/30/23 05:51 Dose: 1 each Multivitamins (Multivitamin Tab) 1 tab PO QAM JAQUELIN Stop: 08/20/23 08:59 Last Admin: 07/30/23 08:40 Dose: 1 tab Nicotine (Nicotine 7 Mg/24 Hr Tdsy) 7 mg TD QAM [facility] Stop: 08/28/23 08:59 Last Admin: 07/30/23 08:40 Dose: 7 mg Pantoprazole Sodium (Pantoprazole 40 Mg Tab) 40 mg PO DAILYBB [facility] Stop: 08/20/23 06:29 Last Admin: 07/30/23 05:51 Dose: 40 mg Prednisone (Prednisone 50 Mg Tab) 50 mg PO DAILY [facility] Stop: 07/31/23 09:01 Last Admin: 07/30/23 08:40 Dose: 50 mg Prednisone (Prednisone 20 Mg Tab) 40 mg PO DAILY [facility] Stop: 08/03/23 09:01 Prednisone (Prednisone 20 Mg Tab) 20 mg PO DAILY [facility] Stop: 08/06/23 09:01 Prednisone (Prednisone 10 Mg Tablet) 10 mg PO DAILY [facility] Stop: 08/09/23 09:01 Prednisone (Prednisone 5 Mg Tab) 5 mg PO DAILY [facility] Stop: 08/12/23 09:01 Psyllium Hydrophilic Mucilloid (Psyllium Or Guar Gum Fiber Powder Packet) 1 pkt PO DAILY PRN PRN Reason: Constipation Stop: 08/19/23 23:41 Sodium Chloride (Sodium Chlor 7% 4 Ml Neb) 4 ml NEB BIDR [facility] Stop: 08/21/23 18:59 Last Admin: 07/30/23 07:05 Dose: 4 ml (3) Community acquired pneumonia Laterality: left Lung location: upper lobe of lung Qualified Code(s): J18.9 - Pneumonia, unspecified organism
[2023-07-30] MEDS: FLUTICASONE FUROATE 100MCG 14 PUFFS/INHALER INH SCH (14:56)
[2023-07-30] MEDS: UMECLIDINIUM/VILANTEROL 62.5/25MCG 7 PUFFS/INHALER INH SCH (14:56)
--- NOTE | 2023-07-30 16:46 | Electrocardiogram Report ---
Test Reason : Blood Pressure : / mmHG Vent. Rate : 090 BPM Atrial Rate : 090 BPM P-R Int : 136 ms QRS Dur : 092 ms QT Int : 392 ms P-R-T Axes : 014 018 237 degrees QTc Int : 479 ms Normal sinus rhythm Possible Old Anterior infarct T wave abnormality, consider lateral ischemia Abnormal ECG When compared with ECG of 29-JUL-2023 05:59, Premature ventricular complexes are no longer Present Inverted T waves have replaced nonspecific T wave abnormality in Lateral leads Confirmed by Thuan Long ([id number]) on 07/30/2023 4:45:30 PM Referred By: REFERRED SELF Confirmed By:Thuan Long
[2023-07-30] MEDS: levoFLOXacin/D5W 750 MG/150 ML BAG IV SCH (16:53)
[2023-07-31] MEDS: PANTOprazole 40 MG TAB PO SCH (06:10)
[2023-07-31 06:21] LABS: Basophils # (auto) 0.03 K/uL (0.00-0.20); Basophils % (auto) 0.2 %; Eosinophils # (auto) 0.02 K/uL (0.00-0.50); Eosinophils % (auto) 0.2 %; Hematocrit (blood only) 29.1 % (37.0-47.0); Hemoglobin 9.8 g/dl (12.0-16.0); Immature Granulocytes # (auto) 0.47 K/uL (0.01-0.20); Immature Granulocytes % (auto) 3.8 %; Lymphocytes # (auto) 1.03 K/uL (1.20-3.40); Lymphocytes % (auto) 8.4 %; Mean Corpuscular Hgb Conc 33.7 g/dL (32.0-36.0); Mean Platelet Volume 11.5 fL (9.4-12.4); Monocytes # (auto) 0.96 K/uL (0.11-0.59); Monocytes % (auto) 7.8 %; Neutrophils # (auto) 9.78 K/uL (1.40-6.50); Neutrophils % (auto) 79.6 %; Platelet Count 119 K/uL (130-400); RDW Coefficient of Variation 14.1 % (11.5-14.5); RDW Standard Deviation 50.8 fL (36.4-46.3); Red Blood Count 2.97 M/uL (4.20-5.40); White Blood Count 12.29 K/ul (4.8-10.8)
[2023-07-31 06:41] LABS: BUN Creatinine Ratio 60.7 (10-20); Calcium 8.6 mg/dl (8.6-10.3); Creatinine Clr Calc Pharmacy 96.2 ml/min; Est GFR (African American) 119.1 ml/min; Est GFR (Non-African American) 102.8 ml/min; Potassium 3.8 mmol/L (3.5-5.1)
[2023-07-31] MEDS: LEVALBUTEROL 1.25 MG/3 ML NEB NEB SCH ×4 (07:12→19:35)
[2023-07-31] MEDS: IPRATROPIUM BROMIDE NEB SOLN 0.02% 2.5 ML VIAL INH SCH ×4 (07:13→19:35)
[2023-07-31] MEDS: SODIUM CHLOR 7% 4 ML NEB NEB SCH ×2 (07:25→19:35)
[2023-07-31] MEDS: ACETAMINOPHEN W/CODEINE #3 1 TAB PO PRN (07:57)
[2023-07-31] MEDS: FEXOFENADINE HCL 180 MG TAB PO SCH (07:58)
[2023-07-31] MEDS: FOLIC ACID 1 MG TAB PO SCH (07:58)
[2023-07-31] MEDS: METOPROLOL SUCC 25MG EXT REL TAB PO SCH (07:58)
[2023-07-31] MEDS: predniSONE 50 MG TAB PO SCH (08:00)
[2023-07-31] MEDS: dilTIAZem HCL 240 MG CAPCR PO SCH (08:00)
[2023-07-31] MEDS: LOSARTAN POTASSIUM 50 MG TAB PO SCH (08:00)
[2023-07-31] MEDS: MULTIVITAMIN TAB PO SCH (08:00)
[2023-07-31] MEDS: carvediloL 6.25 MG TAB PO SCH ×2 (08:00→18:01)
[2023-07-31] MEDS: CALCIUM CITRATE 950 MG TAB PO SCH ×3 (08:00→18:02)
[2023-07-31] MEDS: ENOXAPARIN INJ 40 MG/0.4 ML SYR SQ SCH (08:00)
[2023-07-31] MEDS: FLUTICASONE FUROATE 100MCG 14 PUFFS/INHALER INH SCH (08:01)
[2023-07-31] MEDS: UMECLIDINIUM/VILANTEROL 62.5/25MCG 7 PUFFS/INHALER INH SCH (08:01)
[2023-07-31] MEDS: NICOTINE 7 MG/24 HR TDSY TD SCH (08:05)
[2023-07-31] MEDS: ESCITALOPRAM OXALATE 10 MG TAB PO SCH (11:23)
--- NOTE | 2023-07-31 17:39 | Hospitalist Progress Note ---
Date of Service July 31, 2023 Assessment & Plan (1) Severe sepsis: (2) Sepsis: (3) Community acquired pneumonia: (4) Hyponatremia: (5) COPD exacerbation: (6) Encephalopathy: (7) Immunocompromised state: (8) Elevated troponin: (9) Abnormal liver enzymes: (10) Prediabetes: (11) Anxiety: Plan 58yoF with PMHx significant for hypertension, PSVT, COPD, RA on immunosuppressive regimen, NAFLD, ADD/anxiety/mood disorder, cervical dysplasia, erythema nodosum, ongoing tobacco abuse admitted with sepsis in the setting of of pneumonia. She is being managed for the following: Sepsis COPD exacerbation Pneumonia Acute hypoxic respiratory failure: Likely secondary to above. Pt with SOB from home WBC elevated at presentation and CXR concerning for pneumonia, with opacities on the left. Admitting CT chest with lingula consolidation-- follow up CT chest recommended in 1-2 months to ensure resolution Admitting blood culture and sputum culture with no growth. Admitting BioFire panel was negative. CTA chest and venous Doppler BLE done later in the admission negative for blood clot. 07/23 urinary Legionella positive. Patient immunocompromise status. Was intubated 09/24/2022 [extubated 07/27/2023] for worsening respiratory status. ICU and pulmonology evaluation in this admission, downgraded from ICU on 07/30/2023 with a plan for 2-week prednisone taper and 2-week antibiotic coverage. Continue with pulmonary toilet. Continue with current antibiotics. Wean down oxygen as tolerated. Patient reports feeling better, has cough with yellow sputum which she believes is improving now. Follow cultures. Likely metabolic encephalopathy: Likely secondary to sepsis. Head CT with no acute findings. Hyponatremia at admission could be contributory. Brain MRI unremarkable. Seems to have resolved. Hyponatremia: Admitting sodium of 127, Legionella pneumonia possible contributory. Nephrology evaluated, appreciate recommendation. Sodium level has normalized. BMP upon discharge, follow-up with nephrology in 2 to 4 weeks time upon discharge. RA Immunocompromised status hx rheumatoid arthritis on immunosuppressive regimen Hold Arava and Rinvoq RA medications for now until patient recovers from infection Hold hydroxychloroquine Elevated Troponins hs-Trop elevated at 17.6 to 28.5 to 26.3 EKG with sinus tach Echo ordered with no acute changes Likely elevation of trop due to demand Troponin has been trending down with recent bump due to tachycardia induced strain Pt with no chest pain. Livedo Reticularis Pt's with picture of rash Reticular pattern on lower extremities, states it comes and goes Was not present on lower extremities at time of exam today Associated with hypercoaguable states, vasculitis D-dimer ordered and elevated -lower extremity doppler with no DVT -CTA chest wtih no PE. Hypertension hx PSVT Takes diltiazem 240 mg every morning, metoprolol succinate 25 mg daily, losartan 100 mg daily at home. Currently as of 07/31 patient on carvedilol 6.25 Mg twice daily a.m., metoprolol succinate 25 mg daily, diltiazem 240 mg daily, losartan 50 mg daily. Will discontinue metoprolol 07/31. Continue with rest of the medication, continue to follow blood pressure. Possible alcoholic hepatitis Abnormal LFTs Hx NAFLD Concern for alcohol abuse as per outpatient [facility] cardiology documentation last month Status post MAGGIE S protocol. LFT has normalized. ADD/anxiety/mood disorder Home bupropion on hold in setting of hyponatremia and encephalopathy Continue with home escitalopram Hyperglycemia Hgba1c of 5.7 indicating prediabetes Monitor Ongoing tobacco abuse Nicotine patch Encourage cessation DVT prophylaxis: Lovenox subcu Full code Dispo: PT/OT ordered, CM to assist with DC planning. Likely will need SNF. Admission and Anticipated Discharge Date Admission Date: July 20, 2023 Subjective Patient was seen and examined at bedside. Patient was lying in bed, on 3 L oxygen via nasal cannula, resting comfortably, not in any acute distress. Patient reports cough with yellow sputum, overall improving. Patient denies any headache/febrile illness/chest pain/sore throat/other review of symptoms. Patient reports eating okay and moving bowels okay, reports overall feeling better. But she still feels weak. Physical Exam Physical Exam: GENERAL: Alert and oriented x3. NAD, on 3L O2 via NC. HEENT: No pallor, no icterus. Pupils equal, round and reactive to light. Oral mucosa moist. NECK: No JVD, no neck masses. HEART: S1 and S2 heard. Regular rate and rhythm. No murmur, no gallop. RESPIRATORY SYSTEM: Normal AP diameter. No accessory muscle use. No wheezing, no crackles. decreased breath sounds b/l bases. ABDOMEN: Soft, bowel sounds present, nontender, no distention. CENTRAL NERVOUS SYSTEM: No facial droop. Speech is clear. Obeys simple commands. Moves extremities. EXTREMITIES: No edema, no erythema seen. Results & Data Results & Data Vital Signs (Past 12 Hours) Vital Signs Temp Pulse Pulse Resp BP Pulse Ox O2 Del Method 07/31/23 16:43 36.6 C 65 18 115/65 90 Nasal Cannula 07/31/23 15:18 63 22 90 Nasal Cannula 07/31/23 13:53 64 07/31/23 11:44 36.3 C L 64 18 117/72 90 Nasal Cannula 07/31/23 11:17 22 90 Nasal Cannula 07/31/23 08:20 Nasal Cannula 07/31/23 07:32 36.3 C L 63 18 126/70 92 Nasal Cannula 07/31/23 07:13 63 20 91 Nasal Cannula 07/31/23 05:58 58 L O2 Flow Rate 07/31/23 16:43 3 07/31/23 15:18 3 07/31/23 13:53 07/31/23 11:44 3 07/31/23 11:17 3 07/31/23 08:20 4 07/31/23 07:32 4 07/31/23 07:13 3 07/31/23 05:58 (3) Community acquired pneumonia Laterality: left Lung location: upper lobe of lung Qualified Code(s): J18.9 - Pneumonia, unspecified organism
[2023-07-31] MEDS: levoFLOXacin/D5W 750 MG/150 ML BAG IV SCH (18:01)
[2023-08-01 04:57] LABS: Hemoglobin 9.1 g/dl (12.0-16.0); Mean Corpuscular Hemoglobin 32.5 pg (25.0-34.0); Mean Corpuscular Hgb Conc 32.5 g/dL (32.0-36.0); Mean Platelet Volume 11.3 fL (9.4-12.4); Platelet Count 138 K/uL (130-400); RDW Coefficient of Variation 14.3 % (11.5-14.5); RDW Standard Deviation 51.8 fL (36.4-46.3); White Blood Count 10.52 K/ul (4.8-10.8)
[2023-08-01 05:08] LABS: BUN Creatinine Ratio 59.2 (10-20); Calcium 8.6 mg/dl (8.6-10.3); Est GFR (African American) 124.5 ml/min; Est GFR (Non-African American) 107.4 ml/min; Magnesium 1.7 mg/dl (1.7-2.4); Phosphorus 3.6 mg/dl (2.5-4.9); Potassium 3.8 mmol/L (3.5-5.1)
[2023-08-01] MEDS: PANTOprazole 40 MG TAB PO SCH (06:19)
[2023-08-01] MEDS: LEVALBUTEROL 1.25 MG/3 ML NEB NEB SCH ×4 (07:11→19:39)
[2023-08-01] MEDS: SODIUM CHLOR 7% 4 ML NEB NEB SCH ×2 (07:11→19:39)
[2023-08-01] MEDS: IPRATROPIUM BROMIDE NEB SOLN 0.02% 2.5 ML VIAL INH SCH ×4 (07:11→19:39)
[2023-08-01] MEDS: dilTIAZem HCL 240 MG CAPCR PO SCH (07:52)
[2023-08-01] MEDS: LOSARTAN POTASSIUM 50 MG TAB PO SCH (07:52)
[2023-08-01] MEDS: FEXOFENADINE HCL 180 MG TAB PO SCH (07:52)
[2023-08-01] MEDS: carvediloL 6.25 MG TAB PO SCH ×2 (07:52→17:42)
[2023-08-01] MEDS: MULTIVITAMIN TAB PO SCH (07:52)
[2023-08-01] MEDS: CALCIUM CITRATE 950 MG TAB PO SCH ×3 (07:52→20:24)
[2023-08-01] MEDS: FOLIC ACID 1 MG TAB PO SCH (07:53)
[2023-08-01] MEDS: predniSONE 20 MG TAB PO SCH (07:53)
[2023-08-01] MEDS: ESCITALOPRAM OXALATE 10 MG TAB PO SCH (07:53)
[2023-08-01] MEDS: UMECLIDINIUM/VILANTEROL 62.5/25MCG 7 PUFFS/INHALER INH SCH (07:55)
[2023-08-01] MEDS: FLUTICASONE FUROATE 100MCG 14 PUFFS/INHALER INH SCH (07:55)
[2023-08-01] MEDS: ENOXAPARIN INJ 40 MG/0.4 ML SYR SQ SCH (07:55)
[2023-08-01] MEDS: NICOTINE 7 MG/24 HR TDSY TD SCH (07:59)
--- NOTE | 2023-08-01 14:46 | Hospitalist Progress Note ---
Date of Service August 01, 2023 Assessment & Plan (1) Severe sepsis: (2) Sepsis: (3) Community acquired pneumonia: (4) Hyponatremia: (5) COPD exacerbation: (6) Encephalopathy: (7) Immunocompromised state: (8) Elevated troponin: (9) Abnormal liver enzymes: (10) Prediabetes: (11) Anxiety: Plan 58yoF with PMHx significant for hypertension, PSVT, COPD, RA on immunosuppressive regimen, NAFLD, ADD/anxiety/mood disorder, cervical dysplasia, erythema nodosum, ongoing tobacco abuse admitted with sepsis in the setting of of pneumonia. She is being managed for the following: Sepsis COPD exacerbation Pneumonia Acute hypoxic respiratory failure: Likely secondary to above. Pt with SOB from home WBC elevated at presentation and CXR concerning for pneumonia, with opacities on the left. Admitting CT chest with lingula consolidation-- follow up CT chest recommended in 1-2 months to ensure resolution Admitting blood culture and sputum culture with no growth. Admitting BioFire panel was negative. CTA chest and venous Doppler BLE done later in the admission negative for blood clot. 07/23 urinary Legionella positive. Patient immunocompromise status. Was intubated 09/24/2022 [extubated 07/27/2023] for worsening respiratory status. ICU and pulmonology evaluation in this admission, downgraded from ICU on 07/30/2023 with a plan for 2-week prednisone taper and 2-week antibiotic coverage. Continue with pulmonary toilet. Continue with current antibiotics; to po levaquin from today. Wean down oxygen as tolerated. Patient reports feeling better, has cough with yellow sputum which she believes is improving gradually. Follow cultures. Likely metabolic encephalopathy: Likely secondary to sepsis. Head CT with no acute findings. Hyponatremia at admission could be contributory. Brain MRI unremarkable. Seems to have resolved. Hyponatremia: Admitting sodium of 127, Legionella pneumonia possible contributory. Nephrology evaluated, appreciate recommendation. Sodium level has normalized. BMP upon discharge, follow-up with nephrology in 2 to 4 weeks time upon discharge. RA Immunocompromised status hx rheumatoid arthritis on immunosuppressive regimen Hold Arava and Rinvoq RA medications for now until patient recovers from infection Hold hydroxychloroquine Elevated Troponins hs-Trop elevated at 17.6 to 28.5 to 26.3 EKG with sinus tach Echo ordered with no acute changes Likely elevation of trop due to demand Troponin has been trending down with recent bump due to tachycardia induced strain Pt with no chest pain. Livedo Reticularis Pt's with picture of rash Reticular pattern on lower extremities, states it comes and goes Was not present on lower extremities at time of exam today Associated with hypercoaguable states, vasculitis D-dimer ordered and elevated -lower extremity doppler with no DVT -CTA chest wtih no PE. Hypertension hx PSVT Takes diltiazem 240 mg every morning, metoprolol succinate 25 mg daily, losartan 100 mg daily at home. As of 07/31 patient on carvedilol 6.25 Mg twice daily a.m., metoprolol succinate 25 mg daily, diltiazem 240 mg daily, losartan 50 mg daily. DC'd metoprolol 07/31. Continue with rest of the medication, continue to follow blood pressure. Possible alcoholic hepatitis Abnormal LFTs Hx NAFLD Concern for alcohol abuse as per outpatient [facility] cardiology documentation last month Status post MAGGIE S protocol. LFT has normalized. ADD/anxiety/mood disorder Home bupropion on hold in setting of hyponatremia and encephalopathy Continue with home escitalopram Hyperglycemia Hgba1c of 5.7 indicating prediabetes Monitor Ongoing tobacco abuse Nicotine patch Encourage cessation DVT prophylaxis: Lovenox subcu Full code Dispo: PT/OT ordered, CM to assist with DC planning. Likely will need SNF. Admission and Anticipated Discharge Date Admission Date: July 20, 2023 Subjective Patient was seen and examined at bedside. Patient was lying in bed, on 3 L oxygen via nasal cannula, resting comfortably, not in any acute distress. Patient reports cough with yellow sputum, gradually improving. Patient denies any headache/febrile illness/chest pain/sore throat/other review of symptoms. Patient reports eating okay and moving bowels okay, reports overall feeling better. Reports improving activity gradually. Physical Exam 2 Physical Exam: GENERAL: Alert and oriented x3. NAD, on 3L O2 via NC. HEENT: No pallor, no icterus. Pupils equal, round and reactive to light. Oral mucosa moist. NECK: No JVD, no neck masses. HEART: S1 and S2 heard. Regular rate and rhythm. No murmur, no gallop. RESPIRATORY SYSTEM: Normal AP diameter. No accessory muscle use. No wheezing, no crackles. decreased breath sounds b/l bases. ABDOMEN: Soft, bowel sounds present, nontender, no distention. CENTRAL NERVOUS SYSTEM: No facial droop. Speech is clear. Obeys simple commands. Moves extremities. EXTREMITIES: No edema, no erythema seen. Results & Data Results & Data Vital Signs (Past 12 Hours) Vital Signs Temp Pulse Pulse Pulse Resp BP BP 08/01/23 12:14 68 18 08/01/23 11:33 36.6 C 66 18 108/59 L 08/01/23 08:00 08/01/23 07:42 36.6 C 65 63 20 132/67 08/01/23 07:12 65 18 08/01/23 06:00 63 08/01/23 03:16 36.6 C 57 L 18 108/60 Pulse Ox O2 Del Method O2 Flow Rate 08/01/23 12:14 91 Nasal Cannula 3 08/01/23 11:33 90 Nasal Cannula 2.5 08/01/23 08:00 Nasal Cannula 2 08/01/23 07:42 91 Nasal Cannula 3 08/01/23 07:12 88 L Nasal Cannula 2 08/01/23 06:00 08/01/23 03:16 91 Nasal Cannula 2 (3) Community acquired pneumonia Laterality: left Lung location: upper lobe of lung Qualified Code(s): J18.9 - Pneumonia, unspecified organism
[2023-08-01] MEDS: levoFLOXacin 750 MG TAB PO SCH (20:23)
[2023-08-02] MEDS: PANTOprazole 40 MG TAB PO SCH (05:20)
[2023-08-02 06:35] LABS: Hematocrit (blood only) 25.9 % (37.0-47.0); Hemoglobin 8.7 g/dl (12.0-16.0); Mean Corpuscular Hemoglobin 32.8 pg (25.0-34.0); Mean Corpuscular Hgb Conc 33.6 g/dL (32.0-36.0); Mean Corpuscular Volume 97.7 fL (80.0-100.0); Mean Platelet Volume 10.9 fL (9.4-12.4); Platelet Count 155 K/uL (130-400); RDW Coefficient of Variation 14.3 % (11.5-14.5); Red Blood Count 2.65 M/uL (4.20-5.40); White Blood Count 8.51 K/ul (4.8-10.8)
[2023-08-02 07:17] LABS: BUN Creatinine Ratio 49.1 (10-20); Calcium 8.6 mg/dl (8.6-10.3); Creatinine Clr Calc Pharmacy 101.1 ml/min; Est GFR (African American) 121.3 ml/min; Est GFR (Non-African American) 104.7 ml/min; Magnesium 1.7 mg/dl (1.7-2.4); Phosphorus 3.1 mg/dl (2.5-4.9); Potassium 3.6 mmol/L (3.5-5.1)
[2023-08-02] MEDS: LEVALBUTEROL 1.25 MG/3 ML NEB NEB SCH ×3 (07:21→15:35)
[2023-08-02] MEDS: IPRATROPIUM BROMIDE NEB SOLN 0.02% 2.5 ML VIAL INH SCH ×3 (07:21→15:35)
[2023-08-02] MEDS: SODIUM CHLOR 7% 4 ML NEB NEB SCH ×2 (07:31→19:34)
[2023-08-02] MEDS ORDERED: POTASSIUM CHLORIDE CRTAB 20 MEQ TABCR PO STA (09:25)
[2023-08-02] MEDS: carvediloL 6.25 MG TAB PO SCH ×2 (09:41→17:03)
[2023-08-02] MEDS: CALCIUM CITRATE 950 MG TAB PO SCH ×3 (09:42→17:03)
[2023-08-02] MEDS: ENOXAPARIN INJ 40 MG/0.4 ML SYR SQ SCH (09:42)
[2023-08-02] MEDS: dilTIAZem HCL 240 MG CAPCR PO SCH (09:42)
[2023-08-02] MEDS: FEXOFENADINE HCL 180 MG TAB PO SCH (09:43)
[2023-08-02] MEDS: ESCITALOPRAM OXALATE 10 MG TAB PO SCH (09:43)
[2023-08-02] MEDS: FLUTICASONE FUROATE 100MCG 14 PUFFS/INHALER INH SCH (09:44)
[2023-08-02] MEDS: FOLIC ACID 1 MG TAB PO SCH (09:44)
[2023-08-02] MEDS: LOSARTAN POTASSIUM 50 MG TAB PO SCH (09:45)
[2023-08-02] MEDS: MULTIVITAMIN TAB PO SCH (09:45)
[2023-08-02] MEDS: NICOTINE 7 MG/24 HR TDSY TD SCH (09:45)
[2023-08-02] MEDS: predniSONE 20 MG TAB PO SCH (09:47)
[2023-08-02] MEDS: UMECLIDINIUM/VILANTEROL 62.5/25MCG 7 PUFFS/INHALER INH SCH (09:47)
[2023-08-02 14:43] LABS: Hematocrit (blood only) 28.7 % (37.0-47.0); Hemoglobin 9.6 g/dl (12.0-16.0)
--- NOTE | 2023-08-02 15:26 | Hospitalist Progress Note ---
Date of Service August 02, 2023 Assessment & Plan (1) Severe sepsis: (2) Sepsis: (3) Community acquired pneumonia: (4) Hyponatremia: (5) COPD exacerbation: (6) Encephalopathy: (7) Immunocompromised state: (8) Elevated troponin: (9) Abnormal liver enzymes: (10) Prediabetes: (11) Anxiety: Plan 58yoF with PMHx significant for hypertension, PSVT, COPD, RA on immunosuppressive regimen, NAFLD, ADD/anxiety/mood disorder, cervical dysplasia, erythema nodosum, ongoing tobacco abuse admitted with sepsis in the setting of of pneumonia. She is being managed for the following: Sepsis COPD exacerbation Pneumonia Acute hypoxic respiratory failure: Likely secondary to above. Pt with SOB from home WBC elevated at presentation and CXR concerning for pneumonia, with opacities on the left. Admitting CT chest with lingula consolidation-- follow up CT chest recommended in 1-2 months to ensure resolution Admitting blood culture and sputum culture with no growth. Admitting BioFire panel was negative. CTA chest and venous Doppler BLE done later in the admission negative for blood clot. 07/23 urinary Legionella positive. Patient immunocompromise status. Was intubated 09/24/2022 [extubated 07/27/2023] for worsening respiratory status. ICU and pulmonology evaluation in this admission, downgraded from ICU on 07/30/2023 with a plan for 2-week prednisone taper and 2-week antibiotic coverage. Continue with pulmonary toilet. Continue with current antibiotics. Wean down oxygen as tolerated. Patient reports feeling better, has cough with yellow sputum which she believes is improving gradually. Follow cultures. Likely metabolic encephalopathy: Likely secondary to sepsis. Head CT with no acute findings. Hyponatremia at admission could be contributory. Brain MRI unremarkable. Seems to have resolved. Hyponatremia: Admitting sodium of 127, Legionella pneumonia possible contributory. Nephrology evaluated, appreciate recommendation. Sodium level has normalized. BMP upon discharge, follow-up with nephrology in 2 to 4 weeks time upon discharge. RA Immunocompromised status hx rheumatoid arthritis on immunosuppressive regimen Hold Arava and Rinvoq RA medications for now until patient recovers from infection Hold hydroxychloroquine Elevated Troponins hs-Trop elevated at 17.6 to 28.5 to 26.3 EKG with sinus tach Echo ordered with no acute changes Likely elevation of trop due to demand Troponin has been trending down with recent bump due to tachycardia induced strain Pt with no chest pain. Livedo Reticularis Pt's with picture of rash Reticular pattern on lower extremities, states it comes and goes Was not present on lower extremities at time of exam today Associated with hypercoaguable states, vasculitis D-dimer ordered and elevated -lower extremity doppler with no DVT -CTA chest wtih no PE. Hypertension hx PSVT Takes diltiazem 240 mg every morning, metoprolol succinate 25 mg daily, losartan 100 mg daily at home. As of 07/31 patient on carvedilol 6.25 Mg twice daily a.m., metoprolol succinate 25 mg daily, diltiazem 240 mg daily, losartan 50 mg daily. DC'd metoprolol 07/31. Continue with rest of the medication, continue to follow blood pressure. Possible alcoholic hepatitis Abnormal LFTs Hx NAFLD Concern for alcohol abuse as per outpatient [facility] cardiology documentation last month Status post MAGGIE S protocol. LFT has normalized. ADD/anxiety/mood disorder Home bupropion on hold in setting of hyponatremia and encephalopathy Continue with home escitalopram Hyperglycemia Hgba1c of 5.7 indicating prediabetes Monitor Ongoing tobacco abuse Nicotine patch Encourage cessation DVT prophylaxis: Lovenox subcu Full code Dispo: PT/OT ordered, CM to assist with DC planning. Likely will need SNF. Admission and Anticipated Discharge Date Admission Date: July 20, 2023 Subjective Patient was seen and examined at bedside. Patient was lying in bed, on 2 L oxygen via nasal cannula, resting comfortably, not in any acute distress. Patient reports cough with yellow sputum, continues to improve. Patient denies any headache/febrile illness/chest pain/sore throat/other review of symptoms. Patient reports eating okay and moving bowels okay, reports overall feeling better. Reports improving activity gradually. Physical Exam Physical Exam: GENERAL: Alert and oriented x3. NAD, on 2L O2 via NC. HEENT: No pallor, no icterus. Pupils equal, round and reactive to light. Oral mucosa moist. NECK: No JVD, no neck masses. HEART: S1 and S2 heard. Regular rate and rhythm. No murmur, no gallop. RESPIRATORY SYSTEM: Normal AP diameter. No accessory muscle use. No wheezing, no crackles. decreased breath sounds b/l bases. ABDOMEN: Soft, bowel sounds present, nontender, no distention. CENTRAL NERVOUS SYSTEM: No facial droop. Speech is clear. Obeys simple commands. Moves extremities. EXTREMITIES: No edema, no erythema seen. Results & Data Results & Data Vital Signs (Past 12 Hours) Vital Signs Temp Pulse Resp BP Pulse Ox O2 Del Method O2 Flow Rate 08/02/23 11:22 66 17 96 Nasal Cannula 2 08/02/23 11:18 36.8 C 66 20 130/80 96 Nasal Cannula 2 08/02/23 08:32 36.3 C L 70 20 134/82 91 Nasal Cannula 2 08/02/23 08:00 Nasal Cannula 2 08/02/23 07:21 60 16 92 Nasal Cannula 2 08/02/23 03:52 36.5 C 59 L 18 123/68 92 Nasal Cannula 2.0 (3) Community acquired pneumonia Laterality: left Lung location: upper lobe of lung Qualified Code(s): J18.9 - Pneumonia, unspecified organism
[2023-08-02] MEDS ORDERED: LEVALBUTEROL 1.25 MG/3 ML NEB NEB PRN (15:32)
[2023-08-02] MEDS ORDERED: IPRATROPIUM BROMIDE NEB SOLN 0.02% 2.5 ML VIAL INH PRN (15:32)
[2023-08-02] MEDS: levoFLOXacin 750 MG TAB PO SCH (17:02)
[2023-08-03] MEDS: SODIUM CHLOR 7% 4 ML NEB NEB SCH (07:04)
[2023-08-03] MEDS: CALCIUM CITRATE 950 MG TAB PO SCH ×2 (09:26→14:16)
[2023-08-03] MEDS: carvediloL 6.25 MG TAB PO SCH (09:26)
[2023-08-03] MEDS: LOSARTAN POTASSIUM 50 MG TAB PO SCH (09:27)
[2023-08-03] MEDS: MULTIVITAMIN TAB PO SCH (09:27)
[2023-08-03] MEDS: PANTOprazole 40 MG TAB PO SCH (09:27)
[2023-08-03] MEDS: FOLIC ACID 1 MG TAB PO SCH (09:27)
[2023-08-03] MEDS: dilTIAZem HCL 240 MG CAPCR PO SCH (09:27)
[2023-08-03] MEDS: predniSONE 20 MG TAB PO SCH (09:27)
[2023-08-03] MEDS: FLUTICASONE FUROATE 100MCG 14 PUFFS/INHALER INH SCH (09:28)
[2023-08-03] MEDS: ENOXAPARIN INJ 40 MG/0.4 ML SYR SQ SCH (09:28)
[2023-08-03] MEDS: FEXOFENADINE HCL 180 MG TAB PO SCH (09:28)
[2023-08-03] MEDS: ESCITALOPRAM OXALATE 10 MG TAB PO SCH (09:28)
[2023-08-03] MEDS: UMECLIDINIUM/VILANTEROL 62.5/25MCG 7 PUFFS/INHALER INH SCH (09:28)
[2023-08-03] MEDS: NICOTINE 7 MG/24 HR TDSY TD SCH (09:29)
--- NOTE | 2023-08-03 13:20 | Discharge Summary ---
Date of Service August 03, 2023 Admission HPI Per Admitting Provider History obtained from patient and records. History limited from patient secondary to mild disorientation. Medical history significant for hypertension, PSVT, COPD, RA on immunosuppressive regimen, NAFLD as per records, ADD/anxiety/mood disorder, cervical dysplasia as per records, erythema nodosum as per records, ongoing tobacco abuse. Patient has been sick the last few days. Junky cough symptoms without shortness of breath. Denies chest pain or aspiration. Fever chills at home. Wheezing at home despite MDI use. Not sure about sick contacts. Patient has received COVID-19 vaccination. Patient 'zoning out' at home. No syncope or headache symptoms. Patient seen at weekend clinic today. Patient noted to be febrile and tachycardic. SBP 90s. Patient directed to ER for evaluation. Cefepime administered at the ER. Medical History as above Surgical History : Carpal tunnel surgery, BTL, laparoscopy for endometriosis Family History : MS, uterine cancer, breast cancer, COPD, bronchial asthma Personal/Social history : Half pack daily, social alcohol intake as per records[facility] Admission Exam Per Admitting Provider GENERAL: Slightly uncomfortable, anxious, oriented to place, respiratory distress, nasal cannula in place SKIN: Normal color, warm HEENT: [place] palpebral conjunctivae, no ptosis, dry buccal mucosa NECK : Supple, no tenderness CHEST : Decreased breath sounds, occasional expiratory wheezes, no tenderness HEART : RRR, no obvious murmurs ABDOMEN: Some distention, nontender EXTREMITIES : Reticulate bluish discoloration over lower extremities (chronic as per patient), no LE swelling/tenderness, no other conspicuous deformities noted NEUROLOGIC : Oriented to place, no facial asymmetry, no other gross focality Principal Diagnosis Sepsis POA COPD exacerbation Pneumonia Acute hypoxic respiratory failure, resolved Metabolic encephalopathy, resolved Hyponatremia, resolved Discharge Exam GENERAL: Alert and oriented x3. NAD, on RA. HEENT: No pallor, no icterus. Pupils equal, round and reactive to light. Oral mucosa moist. NECK: No JVD, no neck masses. HEART: S1 and S2 heard. Regular rate and rhythm. No murmur, no gallop. RESPIRATORY SYSTEM: Normal AP diameter. No accessory muscle use. No wheezing, no crackles. decreased breath sounds b/l bases. ABDOMEN: Soft, bowel sounds present, nontender, no distention. CENTRAL NERVOUS SYSTEM: No facial droop. Speech is clear. Obeys simple commands. Moves extremities. EXTREMITIES: No edema, no erythema seen. Discharge Data Allergies Allergy/AdvReac Type Severity Reaction Status Date / Time Iodinated Contrast Media Allergy Severe Anaphylaxis Verified 07/22/23 00:54 nickel Allergy Mild Rash Verified 07/20/23 19:11 Consultations 07/20/23 19:24 ED Decision to Admit Stat 07/21/23 09:03 Consult Nephrology Routine 07/22/23 10:27 Consult Pulmonology Routine 07/24/23 13:55 Consult Vehicle Technician Routine 07/29/23 06:40 Consult Vehicle Technician Routine Procedures Performed Operation Date: 07/25/23 10:30 <No data on this case meets the specified criteria> Ordered Studies 07/20/23 17:26 CT chest diagnostic w con Stat CT head/brain wo con Stat 07/21/23 19:56 US venous doppler LE BI Urgent 07/22/23 00:01 MR brain wo/w con Urgent 07/22/23 20:48 CT lumbar spine wo con Stat 07/23/23 05:44 CT Abd and Pelvis [CT abd pelvis wo con] Stat 07/23/23 08:39 US Renal Bladder [US renal/blad retro comp] Urgent 07/24/23 14:37 CT head/brain wo con Stat 07/25/23 13:18 sono, invasive monitoring [US point of care ultrasound] Urgent 07/25/23 13:24 US point of care ultrasound Urgent 07/27/23 03:00 CT angio chest PE protocol Stat 07/27/23 08:35 US point of care ultrasound Urgent 07/29/23 06:43 US venous duplex leg [US venous doppler LE BI] Stat Hospital Course (1) Severe sepsis: (2) Sepsis: (3) Community acquired pneumonia: (4) Hyponatremia: (5) COPD exacerbation: (6) Encephalopathy: (7) Immunocompromised state: (8) Elevated troponin: (9) Abnormal liver enzymes: (10) Prediabetes: (11) Anxiety: Plan 58yoF with PMHx significant for hypertension, PSVT, COPD, RA on immunosuppressive regimen, NAFLD, ADD/anxiety/mood disorder, cervical dysplasia, erythema nodosum, ongoing tobacco abuse admitted with sepsis in the setting of of pneumonia. She was managed for the following: Sepsis COPD exacerbation Pneumonia Acute hypoxic respiratory failure: Likely secondary to above. Pt with SOB from home WBC elevated at presentation and CXR concerning for pneumonia, with opacities on the left. Admitting CT chest with lingula consolidation-- follow up CT chest recommended in 1-2 months to ensure resolution Admitting blood culture and sputum culture with no growth. Admitting BioFire panel was negative. CTA chest and venous Doppler BLE done later in the admission negative for blood clot. 07/23 urinary Legionella positive. Patient immunocompromise status. Was intubated 09/24/2022 [extubated 07/27/2023] for worsening respiratory status. ICU and pulmonology evaluation in this admission, downgraded from ICU on 07/30/2023 with a plan for 2-week prednisone taper and 2-week antibiotic coverage. Continue with pulmonary toilet. On room air, hemodynamically stable, complete the course of Levaquin on discharge, complete tapering dose of prednisone on discharge. Patient reports feeling better, on room air now, improving cough. Likely metabolic encephalopathy: Likely secondary to sepsis. Head CT with no acute findings. Hyponatremia at admission could be contributory. Brain MRI unremarkable. Seems to have resolved. Hyponatremia: Admitting sodium of 127, Legionella pneumonia possible contributory. Nephrology evaluated, appreciate recommendation. Sodium level has normalized. BMP upon discharge, follow-up with nephrology in 2 to 4 weeks time upon discharge. RA Immunocompromised status hx rheumatoid arthritis on immunosuppressive regimen Hold Arava and Rinvoq RA medications for now until patient recovers from infection Hold hydroxychloroquine Elevated Troponins hs-Trop elevated at 17.6 to 28.5 to 26.3 EKG with sinus tach Echo ordered with no acute changes Likely elevation of trop due to demand Troponin has been trending down with recent bump due to tachycardia induced strain Pt with no chest pain. Lived[place] Reticularis Pt's with picture of rash Reticular pattern on lower extremities, states it comes and goes Was not present on lower extremities at time of exam today Associated with hypercoaguable states, vasculitis D-dimer ordered and elevated -lower extremity doppler with no DVT -CTA chest wtih no PE. Hypertension hx PSVT Takes diltiazem 240 mg every morning, metoprolol succinate 25 mg daily, losartan 100 mg daily at home. As of 07/31 patient on carvedilol 6.25 Mg twice daily a.m., metoprolol succinate 25 mg daily, diltiazem 240 mg daily, losartan 50 mg daily. DC'd metoprolol /. Now blood pressure and heart rate on the lower side, switch Coreg back to prior to arrival metoprolol dose on discharge. Possible alcoholic hepatitis Abnormal LFTs Hx NAFLD Concern for alcohol abuse as per outpatient [facility] cardiology documentation last month Status post MAGGIE S protocol. LFT has normalized. ADD/anxiety/mood disorder Home bupropion on hold in setting of hyponatremia and encephalopathy Continue with home escitalopram Hyperglycemia Hgba1c of 5.7 indicating prediabetes Monitor Ongoing tobacco abuse Nicotine patch Encourage cessation DVT prophylaxis: Lovenox subcu Full code Patient is being discharged to acute rehab with following instruction at the point of discharge: Follow-up with your primary care physician within a week time and likely you will need labs CBC/CMP/magnesium/phosphorus. You will be discharged on antibiotic and prednisone to complete the course for your pneumonia and COPD exacerbation. Biotics will be added. You will need repeat CT scan of the chest in 1 to 2 months time to document resolution of pneumonia/lingula consolidation. Your rheumatoid arthritis medications are on hold until infection clears, once antibiotic is done you will need further evaluation by your PCP office to resume your immunosuppressive agents. Take your medications as prescribed. Please make sure that you are able to get your medications today by calling your pharmacy before you leave the hospital so that your treatment continuity is not broken. Home Health Attestation I certify that this patient is under my care and that I, or a physicians life science research assistant working with me, had a face to-face encounter that meets the home health [id number] encounter requirements with this patient. The encounter with the patient was in whole, or in part, for the following medical condition, which is the primary reason for home health care (list medical condition): I certify that, based on my findings, the following services are medically necessary home health services: My clinical findings support the need for the above services because: Further, I certify that my clinical findings support that this patient is homebound (i.e. absences from home require considerable and taxing effort and are for medical reasons or alevism services or infrequently or of short duration when for other reasons) because: Certification for Home Health Services: Based on the above findings, I certify that this patient is confined to the home and needs intermittent care home care, physical therapy and/or speech therapy or continues to need occupational therapy. The patient is under my care, and I have initiated the establishment of the plan of care. This patient will be followed by a physician who will periodically review the plan of care. Total Time Total Time Spent Total Time Spent (In Minutes): 45 Discharge Plan Discharge Items Patient Disposition: Transfer Inpatient Rehab Fac Reason For Visit: SEPSIS Discharge Diagnosis: Sepsis POA COPD exacerbation Pneumonia Acute hypoxic respiratory failure, resolved Metabolic encephalopathy, resolved Hyponatremia, resolved Activity: Resume your previous activity Non-emergency contact: Primary Care Provider Call non-emergency contact if: you have any medication questions, your symptoms worsen and your temperature is above 101 Follow-up/Referrals: Lilly Thorne MD [Primary Care Provider] - Diet: Heart Healthy Diet Texture: Easy to Chew Addtl Attending Provider Instructions: Follow-up with your primary care physician within a week time and likely you will need labs CBC/CMP/magnesium/phosphorus. You will be discharged on antibiotic and prednisone to complete the course for your pneumonia and COPD exacerbation. Biotics will be added. You will need repeat CT scan of the chest in 1 to 2 months time to document resolution of pneumonia/lingula consolidation. Your rheumatoid arthritis medications are on hold until infection clears, once antibiotic is done you will need further evaluation by your PCP office to resume your immunosuppressive agents. Take your medications as prescribed. Please make sure that you are able to get your medications today by calling your pharmacy before you leave the hospital so that your treatment continuity is not broken. Pending Studies at Discharge: Yes Stand-Alone Forms: My [facility] Skilled Items Patient informed of condition?: Yes DNR: No Discharge Level of Care: Acute rehab Communicable Disease: No Discharge Prognosis: Stable Lines: None Urinary Catheter: No Medications and DC Order Prescriptions: New levofloxacin 750 mg Tablet 750 mg PO DAILY@1700 4 Days Qty: 4 0RF nicotine 7 mg/24 hr Patch 24 Hour 7 mg transdermal QAM Qty: 28 0RF prednisone 20 mg Tablet 20 mg PO DAILY 3 Days Qty: 3 0RF Rx Instructions: daily from 08/04 to 08/06. prednisone 10 mg Tablet 10 mg PO DAILY 3 Days Qty: 3 0RF Rx Instructions: daily from 08/07 to 08/09 prednisone 5 mg Tablet 5 mg PO DAILY 3 Days Qty: 3 0RF Rx Instructions: daily from 08/10 to 08/12. multivitamin with folic acid [Daily-Keturah (with folic acid)] 400 mcg Tablet 1 tab PO QAM Qty: 30 0RF Calcium Citrate [Citracal] 950 mg PO PC Qty: 30 0RF Continued albuterol sulfate [Proventil] 2.5 mg /3 mL (0.083 %) Solution For Nebulization 2.5 mg INHALATION DIRECTED PRN (Reason: Shortness Of Breath Or Wheezing) diltiazem HCl 240 mg capsule,extended release 24hr 240 mg PO QAM fexofenadine [Nguyen] 180 mg Tablet 180 mg PO DAILY Metamucil Smooth Texture S/F Powder 1 tbsp PO DAILY PRN (Reason: Constipation) Rx Instructions: mix into at least 8 oz of water or juice before administering naproxen sodium 220 mg Tablet 440 mg PO Q12H PRN (Reason: Pain) omeprazole 20 mg capsule,delayed release(DR/EC) 20 mg PO DAILYBB folic acid 1 mg tablet 3 mg PO DAILY metoprolol succinate 25 mg tablet extended release 24 hr 25 mg PO DAILY albuterol sulfate [Ventolin HFA] 90 mcg/actuation Hfa Aerosol Inhaler 2 puff INHALATION Q4H PRN (Reason: COUGH/SHORT OF BREATH/WHEEZING) bupropion HCl 200 mg tablet sustained-release 12 hr 200 mg PO BID Rx Instructions: TAKES QAM THEN AT 1500. escitalopram oxalate 10 mg tablet 15 mg PO QAM potassium chloride [Klor-Con M10] 10 mEq tablet,ER particles/crystals 10 meq PO QAM Trelegy Ellipta 100-62.5-25 mcg blister with device 1 inh INHALATION DAILY Changed losartan 100 mg tablet 50 mg PO QAM Qty: 30 0RF Held leflunomide 10 mg tablet 10 mg PO QAM Hold Instructions: Resume on 08/08/23. Until antibiotic course and further eval by your PCP. hydroxychloroquine 200 mg tablet 300 mg PO HS Hold Instructions: Resume on 08/08/23. Until antibiotic course and further eval by your PCP. Rinvoq 15 mg tablet extended release 24 hr 15 mg PO QAM Hold Instructions: Resume on 08/08/23. Until antibiotic course and further eval by your PCP. Discharge Orders: Discharge Order (Routine); Ordered 08/03/23 Ordered By: Yarelis Freedman Admission Data Admit Date/Time: 07/20/23 20:35 Attending Provider: Yarelis Freedman Admit Provider: Mike Jacinto Primary Care Provider: Lilly Thorne Other Providers: Juancarlos Moody; [facility]; Mike Jacinto; Shahriar Riojas
[2023-08-04] MEDS ORDERED: predniSONE 20 MG TAB PO SCH (09:00)
[2023-08-07] MEDS ORDERED: predniSONE 10 MG TABLET PO SCH (09:00)
[2023-08-10] MEDS ORDERED: predniSONE 5 MG TAB PO SCH (09:00)
== END 2023-08-03 15:30 | DRG 871 ==
LOC: ED 16:10 → EDINP 20:35 → SUATTDRO 20:35 → EDINP 22:56 → 2W 07-21 00:10 → 2S 07-23 21:56 → 1E 07-24 13:49 → 2E 07-28 23:26 → 1E 07-29 06:32 → 4W 07-31 02:20

== ENCOUNTER 2024-08-31 07:53 | Observation (INO) ==
--- NOTE | 2024-08-26 09:09 | Anesthesiology Consultation ---
Date of Service August 26, 2024 Assessment & Plan (1) Encounter for pre-operative examination: - Infectious disease screening: Per assessment on 08/21/24- No known recent infectious disease contacts. Cough + congestion/runny nose started 08/17/24. Evaluated by PCP 08/20/24. Viral panel including Covid testing negative ([facility]) and patient started on abx/prednisone. Symptoms improving. Patient advised to contact surgeon's office if not improved closer to DOS. Lungs clear to auscultation on [facility] PCP f/u visit 08/24/24. Symptom onset > 10 days prior to surgery. Okay to proceed as scheduled pending evaluation DOS. - S/P bronchoscopy (09/25/23): Grade view 1, MAC#3, ETT at [facility] - Cardiology visit (11/25/23): "Hospitalized at [facility] 07/20/23 with sepsis in the setting of pneumonia, hyponatremia, encephalopathy, COPD exacerbation. She was intubated due to worsening respiratory failure. Urine positive for Legionella. She was discharged to rehab on 08/03/23. Presents today overall feeling ok from cardiac standpoint. Main complaint is her breathing. Since hospitalization she has shortness of breath, seeing [facility] pulmonology, has follow up this month. Recently finished steroid taper. Denies chest pain, edema, PND, orthopnea, lightheadedness, syncope. Compliant with all medications. has noticed worsening snoring since hospitalization, psychiatrist ordered sleep medicine referral. She does not want to do a sleep study since she would not wear CPAP due to severe claustrophobia.. Paroxysmal SVT (supraventricular tachycardia)- denies palpitations.. continue diltiazem 240 mg daily, metoprolol succinate 25 mg daily.. HTN, goal below 130/80.. elevated on today's reading, recommend to closely monitor.. 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 RECOMMENDATIONS: 1. Cryptogenic organizing pneumonia -she received several weeks of prednisone therapy with decrease in size of the left upper lobe masslike consolidation. Bronchoscopic brushings were negative for malignancy. She still has a masslike consolidation left upper lobe. Will pursue a PET scan. 2. Legionella pneumonia -previously was intubated and ventilated for severe Legionella pneumonia and required bronchoscopy and thoracentesis. She has recovered from this. She still has a residual opacity in the left upper lobe which may be a scarlike density, rounded atelectasis for ongoing cryptogenic organizing pneumonia. Underlying malignancy difficult to rule out. 3. COPD -continue Trelegy and as needed albuterol. 4. Immunocompromised state -patient currently on Enbrel for rheumatoid arthritis. Symptoms well-controlled. 5. Patient with severe daytime hypersomnolence often taking naps 2 to 3 hours a day. STOP-BANG score of 3 and O'Brien Sleepiness Scale is 16. Will pursue a polysomnography. Other possibilities of lethargy include underlying disease process in the lung tissue related to the masslike consolidation seen in the left upper lobe. 6. She notes that she started smoking cigarettes a day and smokes about a pack per day. She is already on bupropion. She notes that she is going to try nicotine patches to try to help her quit. She was able to quit from July 2023 to November 2023. Smoking cessation was strongly advised." - Patient acceptable risk for given surgery pending evaluation DOS. Chart Review Chart Review: Patient NOT seen in Pre Admission Testing History Surgery Operation Date: 08/31/24 09:30 Proposed Procedures p Robotic Navigational Bronchoscopy, - Juancarlos Moody MD s Endobronchial Ultrasound - Juancarlos Moody MD Height/Weight Height: 5 ft 2 in Weight: 73.028 kg Allergies Allergy/AdvReac Type Severity Reaction Status Date / Time Iodinated Contrast Media Allergy Severe Anaphylaxis Verified 08/21/24 14:31 nickel Allergy Mild Rash Verified 08/21/24 14:31 Medications Home Medications Medication Instructions Recorded Confirmed Last Taken albuterol sulfate 90 mcg/actuation 2 puff inhalation Q4H PRN 07/20/23 08/21/24 09/18/23 aerosol inhaler (Ventolin HFA) COUGH/SHORT OF BREATH/WHEEZING bupropion HCl 200 mg tablet,12 hr 200 mg PO BID 07/20/23 08/21/24 09/24/23 15:00 sustained-release escitalopram oxalate 10 mg tablet 15 mg PO QAM 07/20/23 08/21/2424 08:00 (Lexapro) fexofenadine 180 mg tablet 180 mg PO QAM 07/20/23 08/21/24 09/24/23 08:00 fluticasone fur. 100 mcg-umeclid 1 inh inhalation QAM 07/20/23 08/21/24 09/24/23 08:00 62.5 mcg-vilant 25 mcg inhalat.powder (Trelegy Ellipta) metoprolol succinate 25 mg 25 mg PO QAM 07/20/23 08/21/24 09/24/23 08:00 tablet,extended release 24 hr naproxen sodium 220 mg tablet 440 mg PO Q12H PRN Pain 07/20/23 08/21/24 09/22/23 (Aleve) omeprazole 20 mg capsule,delayed 20 mg PO DAILYBB 07/20/23 08/21/24 09/24/23 08:00 release psyllium 1 tbsp PO DAILY PRN Constipation 07/20/23 08/21/24 Unknown losartan 100 mg tablet 50 mg (1/2 x 100 mg) PO QAM #30 08/03/23 08/21/24 09/24/23 08:00 tabs multivitamin with folic acid 400 1 tab PO QAM #30 tabs 08/03/23 08/21/24 09/24/23 18:00 mcg tablet (Daily-Keturah (with folic acid)) Flutter Valve #1 ea 09/11/23 06/22/24 Unknown etanercept 50 mg/mL (1 mL) 50 mg subcut WK 06/22/24 08/21/24 08/19/24 subcutaneous syringe (Enbrel) azithromycin 250 mg tablet 250 mg PO DAILY 08/21/24 08/21/24 Unknown prednisone 20 mg tablet 40 mg PO QAM 08/21/24 08/21/24 Unknown Past Medical History Medical History Anxiety and depression Asthma COPD (chronic obstructive pulmonary disease) Cryptogenic organizing pneumonia Pulmonary visit 06/2024: "follow-up after 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 RECOMMENDATIONS: 1. Cryptogenic organizing pneumonia -she received several weeks of prednisone therapy with decrease in size of the left upper lobe masslike consolidation. Bronchoscopic brushings were negative for malignancy. She still has a masslike consolidation left upper lobe." GERD (gastroesophageal reflux disease) HTN (hypertension) Hx of sepsis 07/2023 - [facility] Mass of upper lobe of left lung Dr Moody Mood disorder NAFLD (nonalcoholic fatty liver disease) Prediabetes Per records, patient denies Pulmonary embolism 07/2023 per records, patient denies Rheumatoid arthritis SVT (supraventricular tachycardia) Follows with Dr. Navas Past Family History Family History Other Asthma Breast cancer COPD (chronic obstructive pulmonary disease) Past Surgical History Surgical History History of bronchoscopy (09/25/23) History of carpal tunnel release Right History of colonoscopy History of thoracentesis History of tubal ligation History of wisdom tooth extraction Social History Smoking Status: Current every day smoker Smoking cigarettes per day: 1 pack Do You Dip or Chew Tobacco: No Hx Alcohol Use: Yes Alcohol type: hard liquor alcohol intake frequency: a few times a week Hx Substance Use: No substance use type: does not use Testing Laboratory Results 08/24/24 WBC 9.28 H/H 13.2/39.3 PLATELETS 243 SODIUM 141 POTASSIUM 4.1 CHLORIDE 103 CO2 25 BUN 25 CREATININE 0.8 GLUCOSE 122 ESR 39 Electrocardiogram Date: 10/06/23 NSR at 69bpm. Minimal voltage criteria for LVH, may be normal variant (R in avL). NS TWA. Echocardiogram Date: 07/30/23 EF 50-55% Grossly normal valvular structure and function No pericardial effusion Stress Test Date: 01/09/21 Pharmacologic MPHR 91% Normal study with no evidence of infarction or inducible ischemia EF 63% Pulmonary Function Test Date: 06/10/23 Mild airflow obstruction. No significant change in spirometry measured following bronchodilator administration. TGV is increased, consistent with the impression of chronic airways disease. RV in the RV to TLC ratio was increased, suggestive of air trapping. TLC was within normal range. Diffusion capacity that was not corrected for hemoglobin concentration was mildly reduced Other Testing PET Skull to mid thigh Date: 07/09/24 IMPRESSION: 1. Moderate FDG uptake within the 6.5 x 3.4 cm lobulated mass-like lingular abnormality which has slightly decreased in size since CT of May 18, 2024. This remains indeterminate and could represent a chronic infectious process such as cryptogenic organizing pneumonia. However, a neoplasm could appear similar and correlation with bronchoscopy, if not already performed, and continued imaging follow-up is recommended. 2. Prominent prevascular lymph node which is unchanged without significant FDG uptake. Mild symmetric bilateral hilar mary jane FDG uptake. No suspicious mary jane uptake within the chest. 3. Emphysema. Chest CT Date: 08/02/24 IMPRESSION: 1. No significant interval change in comparison with 05/18/2024. 2. An ill-defined mass measures 6.4x3.4x5cm in the left lingula abutting the left oblique fissure and the left sherie. need for Biopsy/PET CT correlation if clinically warranted. 3. Moderate-severe emphysematous changes were noted. Subpleural atelectasis/ fibrotic changes were noted in the right middle pole.
[2024-08-31] MEDS ORDERED: PROPOFOL IV EMULSION 10 MG/ML 20 ML VIAL IV ONE (08:04)
[2024-08-31] MEDS ORDERED: fentaNYL citrate PF 100 MCG/2 ML VIAL ONE ×2 (08:04→10:38)
[2024-08-31] MEDS ORDERED: ROCURONIUM BROMIDE 10 MG/ML 5 ML VIAL IV ONE ×2 (08:04→11:00)
[2024-08-31] MEDS: LR 15ML/HR IV SCH (08:40)
[2024-08-31] MEDS ORDERED: HYDROmorphone INJ 1 MG/ML SYRINGE IV PRN (09:04)
[2024-08-31] MEDS ORDERED: ePHEDrine sulfate 50 MG/ML AMP IV PRN (09:04)
[2024-08-31] MEDS ORDERED: ATROPINE SULFATE 0.1 MG/ML 10ML SYR IV PRN (09:04)
[2024-08-31] MEDS ORDERED: fentaNYL citrate PF 100 MCG/2 ML VIAL IV PRN (09:04)
[2024-08-31] MEDS ORDERED: ONDANSETRON INJ 2 MG/ML 2 ML VIAL IV PRN (09:04)
[2024-08-31] MEDS: ALBUT/IPRATROP 3MG/0.5MG NEB 3 ML VIAL NEB STA (09:12)
--- NOTE | 2024-08-31 10:18 | Pulmonary Consultation ---
Date of Consultation August 31, 2024 Assessment & Plan (1) Mass of upper lobe of left lung: Discussed robotic bronchoscopy to obtain tissue of the left upper lobe PET avid mass with the patient at length and the patient's . Risks and benefits discussed as well. Risks including, but not limited to the following: Hemorrhage, pneumothorax, need for further procedures, myocardial infarction, stroke and hypoxia. Patient understands the risks and is willing to proceed. History of Present Illness Reason for Consultation: Left upper lobe mass Attending Physician: Juancarlos Moody MD History of Present Illness 59-year-old female with a history of tobacco abuse, Legionella pneumonia and ICU hospitalization 1 year ago with persistent left upper lobe mass. PET scan was positive of this left upper lobe mass. Patient endorses chronic cough and shortness of breath. No weight loss, fevers or chills. Allergies Allergy/AdvReac Type Severity Reaction Status Date / Time Iodinated Contrast Media Allergy Severe Anaphylaxis Verified 08/31/24 08:32 nickel Allergy Mild Rash Verified 08/31/24 08:32 Home Medications Medication Instructions Recorded Confirmed Type albuterol sulfate 90 mcg/actuation 2 puff inhalation Q4H PRN 07/20/23 08/31/24 History aerosol inhaler (Ventolin HFA) COUGH/SHORT OF BREATH/WHEEZING bupropion HCl 200 mg tablet,12 hr 200 mg PO BID 07/20/23 08/31/24 History sustained-release (Wellbutrin SR) escitalopram oxalate 10 mg tablet 15 mg PO QAM 07/20/23 08/31/24 History (Lexapro) fexofenadine 180 mg tablet 180 mg PO QAM 07/20/23 08/31/24 History (Nguyen Allergy) fluticasone fur. 100 mcg-umeclid 1 inh inhalation QAM 07/20/23 08/31/24 History 62.5 mcg-vilant 25 mcg inhalat.powder (Trelegy Ellipta) metoprolol succinate 25 mg 25 mg PO QAM 07/20/23 08/31/24 History tablet,extended release 24 hr naproxen sodium 220 mg tablet 440 mg PO Q12H PRN Pain 07/20/23 08/31/24 History (Aleve) omeprazole 20 mg capsule,delayed 20 mg PO DAILYBB 07/20/23 08/31/24 History release psyllium (Hydrocil oral powder) 1 tbsp PO DAILY PRN Constipation 07/20/23 08/31/24 History multivitamin with folic acid 400 1 tab PO QAM #30 tabs 08/03/23 08/31/24 Rx mcg tablet (Daily-Keturah (with folic acid)) Flutter Valve #1 ea 09/11/23 08/31/24 Rx etanercept 50 mg/mL (1 mL) 50 mg subcut WK 06/22/24 08/31/24 History subcutaneous syringe (Enbrel) diltiazem HCl 1 tab PO DAILY 08/31/24 08/31/24 History Patient History Medical History Anxiety and depression Asthma COPD (chronic obstructive pulmonary disease) Cryptogenic organizing pneumonia Pulmonary visit 06/2024: "follow-up after ongoing treatment for [employer]. RECOMMENDATIONS: 1. Cryptogenic organizing pneumonia -she received several weeks of prednisone therapy with decrease in size of the left upper lobe masslike consolidation. Bronchoscopic brushings were negative for malignancy. She still has a masslike consolidation left upper lobe." GERD (gastroesophageal reflux disease) HTN (hypertension) Hx of sepsis 07/2023 - [facility] Mass of upper lobe of left lung Dr Moody Mood disorder NAFLD (nonalcoholic fatty liver disease) Prediabetes Per records, patient denies Pulmonary embolism 07/2023 per records, patient denies Rheumatoid arthritis SVT (supraventricular tachycardia) Follows with Dr. Navas Surgical History History of bronchoscopy (09/25/23) History of carpal tunnel release Right History of colonoscopy History of thoracentesis History of tubal ligation History of wisdom tooth extraction Family History Other Asthma Breast cancer COPD (chronic obstructive pulmonary disease) Social History Smoking Status: Current every day smoker Tobacco Type: Cigarettes Cigarettes Per Day: 1 pack; Second Hand Exposure: No; Do You Dip or Chew Tobacco: No; Tobacco Cessation Education Requested by Patient: No Hx Alcohol Use: Yes Alcohol type: hard liquor Hx Substance Use: No Preferred Language: [place]ese Communication Ability: Effective 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 Patient is in no apparent distress. Patient is well-developed. Eyes: Pupils are equal round and reactive to light. Conjunctivae are normal. Anicteric sclera. Ears nose, mouth and throat: Mallampati class 2. Normal posterior oropharynx. Uvula is midline. Neck: Trachea is midline. Visual inspection is normal. Respiratory: Prolonged phase of exhalation. No tachypnea. Cardiovascular: Regular rate and rhythm. No murmurs. No edema. Gastrointestinal: Deferred Musculoskeletal: No cyanosis. Patient is able to move all extremities. Strength is 5 out of 5 in the upper and lower extremities. Skin: No rashes, warm dry and intact. Neurologic: No obvious focal neurological deficits seen. Psychiatric: Alert and oriented x3 with a euthymic affect. Results & Data Results & Data Vital Signs (Past 12 Hours) Vital Signs Temp Pulse Resp BP Pulse Ox O2 Del Method 08/31/24 09:15 61 16 97 Room Air 08/31/24 08:37 Room Air 08/31/24 08:37 36.8 C 61 18 155/62 H 97 Room Air PG Care Time/CCT Total # of Minutes Spent Total Time Spent with Patient: Total time spent is greater than 50% in coordination of care (as documented) at patient's floor/unit and/or counseling patient: Coding Level of Care Code 17443 IN/OBS CONSULT LVL 2,35M Diagnoses Mass of upper lobe of left lung R91.8
[2024-08-31] MEDS ORDERED: DEXAMETHASONE SOD INJ 4 MG/ML VIAL ONE (10:43)
[2024-08-31] MEDS ORDERED: ONDANSETRON INJ 2 MG/ML 2 ML VIAL ONE (10:43)
[2024-08-31] MEDS ORDERED: SUGAMMADEX SODIUM 200 MG/2 ML VIAL IV ONE (10:53)
[2024-08-31] MEDS ORDERED: ePHEDrine sulfate 50 MG/5 ML SYR ONE (11:29)
[2024-08-31] MEDS ORDERED: GLYCOPYRROLATE 0.2 MG/ML VIAL ONE (12:06)
--- NOTE | 2024-08-31 12:37 | Procedure Note ---
Supervising Physician Co-Signing Physician Notes Procedure: Fiberoptic bronchoscopy Electromagnetic navigational bronchoscopy with fluoroscopic guidance Electromagnetic navigational bronchoscopy with transbronchial biopsies under fluoroscopic guidance Radial endobronchial ultrasound Endobronchial ultrasound Provider: Juancarlos Moody MD Consent: Signed by patient and timeout verified prior to procedure. Indication: Abnormal CT scan with lobulated left upper lobe lesion Procedure: Patient was brought to the OR suite. Consent was verified. Appropriate radiographic studies had been reviewed prior to the procedure. General anesthesia was initiated by the anesthesia team and the patient was intubated with an 8.5 endotracheal tube. After initiation of general anesthesia, the fiberoptic scope was advanced through the existing endotracheal tube via the adapter. The tube was 1 cm above the khurram and secured in place. A systematic inspection of the airways was then conducted. The right tracheobronchial tree was normal in anatomic configuration with normal mucosa. Left tracheobronchial tree also demonstrated a normal bartolome tomic configuration with normal mucosa. No endobronchial lesions were identified. The fiberoptic scope was then removed. The robotic adapter was then secured to the endotracheal tube and secured using the flexible arm attached to the bed. The patient had previously been placed on a bed with an electromagnetic navigation field and a tilt table in place. The robot was advanced to the head of the bed and the robotic arm was docked to the endotracheal tube via the robotic adapter. Robot arm was withdrawn in normal fashion and the scope attached with the antibuckling device. The robotic scope was then maneuvered into the endotracheal tube where controller registration took place. Once that was confirmed the scope was advanced to the main khurram and verified in good position. Navigational registration was then conducted without difficulty. Once registration was completed, the robotic bronchoscope was used to navigate to left upper lobe pulmonary nodule. Once the scope was approximately 15 to 20 mm from the lesion, a fluoroscopic tomographic spin was conducted with reconstruction of images. The lesion was easily visualized and marked. Under fluoroscopic guidance, fluoroscopic transb ronchial biopsies, FNA biopsies washings were performed of the left upper lobe lesion. Radial EBUS was also used to evaluate the lesion and a concentric view was obtained. The robot was then undocked from the patient and removed. Diagnostic bronchoscope was then reinserted to evaluate the airways and hemostasis was confirmed. Bronchoscope was then completely withdrawn. Endobronchial ultrasound was then inserted and small subcentimeter hilar and mediastinal lymph nodes pulmonary noted which were noted. No tissue sampling occurred. The patient was turned over to anesthesia for extubation and returned to the PACU having tolerated the procedure well. Postoperatively, the patient is requiring supplemental oxygen and chest x-ray revealed a left lower lobe atelectasis versus pneumonia. Hospitalist service has been contacted for admission. Recommended the initiation of broad-spectrum antibiotics with Zosyn and obtaining an MRSA screen. Will also pursue aggressive pulmonary toileting with incentive spirometer, flutter valve and hypertonic saline. Follow-up biopsies of the left upper lobe lesion and culture samples. EBL: Less than 10 ml [facility] Procedure Codes (Charges) Pulmonary/Thoracic Procedure 1: Pulmonary and Thoracic: 56855 Navigational Bronchoscopy Procedure 2: Pulmonary and Thoracic: 10141 Bronchoscopy w/ transbronchial lung bx Procedure 3: Pulmonary and Thoracic: 27280 Bronchoscopy w/ needle bx Procedure 4: Pulmonary and Thoracic: 97702 Dx bronchoscopy/wash Procedure 5: Pulmonary and Thoracic: 47073 Bronchoscopy, w/EBUS add on
--- NOTE | 2024-08-31 13:00 | XRay Report ---
XR chest 1V portable CLINICAL HISTORY: Post Bronchoscopy COMPARISON STUDY: Chest radiograph June 24, 2024. Chest CT August 02, 2024. FINDINGS: There is no pneumothorax status post bronchoscopy. Mass-like lesion within the lingula is n oted. There is associated airspace opacity. Cardiomediastinal silhouette is stable. There is no evide nce for pulmonary edema. Azygos fissure is incidentally noted. IMPRESSION: No pneumothorax status post bronchoscopy. ACT 112: Negative or not required by law. Electronically signed by: Ebenezer Carroll M.D. 08/31/2024 12:59 PM
--- NOTE | 2024-08-31 13:39 | Anesthesiology Progress Note ---
Date of Service August 31, 2024 Anesthesia Post Procedure Vital Signs Vital Signs: Temp Pulse Pulse Resp BP Pulse Ox O2 Del Method 08/31/24 13:35 77 15 156/84 H 94 Nasal Cannula 08/31/24 13:25 36.6 C 79 14 158/77 H 95 Nasal Cannula 08/31/24 13:15 78 15 156/74 H 94 Nasal Cannula 08/31/24 13:05 80 17 158/70 H 95 Nasal Cannula 08/31/24 12:55 80 16 147/75 H 95 Nasal Cannula 08/31/24 12:45 86 14 123/84 94 Room Air 08/31/24 12:35 86 15 146/73 H 99 Oxymask 08/31/24 12:26 36.1 C L 88 10 L 143/85 H 97 Oxymask 08/31/24 09:15 61 16 97 Room Air 08/31/24 08:37 Room Air 08/31/24 08:37 36.8 C 61 18 155/62 H 97 Room Air O2 Flow Rate 08/31/24 13:35 2 08/31/24 13:25 2 08/31/24 13:15 2 08/31/24 13:05 2 08/31/24 12:55 2 08/31/24 12:45 08/31/24 12:35 4 08/31/24 12:26 4 08/31/24 09:15 08/31/24 08:37 08/31/24 08:37 Transfer of Care Handoff Completed per policy Notes Mental Status: alert / awake / arousable and participated in evaluation Patient Amnestic to Procedure: Yes Nausea / Vomiting: adequately controlled Pain: adequately controlled Airway Patency, RR, SpO2: stable & adequate BP & HR: stable & adequate Hydration State: stable & adequate Anesthetic Complications: no major complications apparent and Pt Satisfied with anesthetic care
--- NOTE | 2024-08-31 13:58 | XRay Report ---
XR chest 1V portable HISTORY: 59 years-old Female continued hyoxia COMPARISON: Chest radiograph 08/31/2024, chest CT 08/02/2024 TECHNIQUE: AP view the chest FINDINGS: Cardiac silhouette is enlarged. Pulmonary vascular congestion. Trace pleural effusions. Mass like [place] in the left mid lung/lingula redemonstrated. Emphysema with chronic interstitial coarsening. Azy gos lobe and fissure. Bones appear grossly intact. IMPRESSION: 1. Cardiomegaly with pulmonary vascular congestion. 2. Trace pleural effusions with mild bibasilar atelectasis. 3. Emphysema with lingular mass redemonstrated. ACT 112: Negative or not required by law. The above report was generated using voice recognition software. It may contain grammatical, syntax o r spelling errors. Electronically signed by: Chencho Coker M.D. 08/31/2024 1:56 PM
--- NOTE | 2024-08-31 15:10 | History & Physical Report ---
Date of Service August 31, 2024 Assessment & Plan (1) Mass of upper lobe of left lung: (2) Pneumonia: (3) Acute respiratory failure with hypoxia: Plan: 59 year old female with history of COPD, smoking, PSVT, HTN, RA on Enbrel, Depression presenting with hypoxia after bronchoscopy. Acute hypoxic respiratory failure Status post bronchoscopy for left upper lobe mass, 08/31/24 Left lower lobe Pneumonia Follow-up bronchial washing cultures and sensitivities Follow-up pathology report Blood cultures ordered Zosyn IV ordered Xopenex, Atrovent every 6 hours Hypertonic saline twice daily Mucinex, incentive spirometry, flutter valve Continue usual Trelegy Pulmonology service consult PSVT Hypertension Continue usual diltiazem, metoprolol Rheumatoid Arthritis On Enbrel Depression Continue bupropion, escitalopram DVT prophylaxis SCDs for now in light of bronchoscopy with biopsy today Reevaluate daily Full code Disposition Lives at home History of Present Illness Chief Complaint: hypoxia, s/p bronchoscopy Primary Care Provider: Lilly Thorne MD 59 year old female with history of COPD, smoking, PSVT, HTN, RA on Enbrel, Depression presenting with hypoxia after bronchoscopy. Patient was recently found to have a Left upper lobe lung mass, which was found be PETscan positive. Today, she underwent a bronchoscopy procedure for lung biopsy. She was found to be hypoxic requiring 2 L to maintain O2 sats >90%. CXR s/p Bronch: 1. Cardiomegaly with pulmonary vascular congestion. 2. Trace pleural effusions with mild bibasilar atelectasis. 3. Emphysema with lingular mass redemonstrated. She finished a course of Azithromycin last week for cough symptoms. Patient has history of Legionella pneumonia. On exam, patient seen resting in bed, comfortable, on 2L nasal cannula. States she feels fine overall. Has intermittent productive cough, but no active shortness of breath, chest pain, etc. Allergies Allergy/AdvReac Type Severity Reaction Status Date / Time Iodinated Contrast Media Allergy Severe Anaphylaxis Verified 08/31/24 08:32 nickel Allergy Mild Rash Verified 08/31/24 08:32 Home Medications Medication Instructions Recorded Confirmed Type albuterol sulfate 90 mcg/actuation 2 puff inhalation Q4H PRN 07/20/23 08/31/24 History aerosol inhaler (Ventolin HFA) COUGH/SHORT OF BREATH/WHEEZING bupropion HCl 200 mg tablet,12 hr 200 mg PO BID 07/20/23 08/31/24 History sustained-release (Wellbutrin SR) escitalopram oxalate 10 mg tablet 15 mg PO QAM 07/20/23 08/31/24 History (Lexapro) fexofenadine 180 mg tablet 180 mg PO QAM 07/20/23 08/31/24 History (Nguyen Allergy) fluticasone fur. 100 mcg-umeclid 1 inh inhalation QAM 07/20/23 08/31/24 History 62.5 mcg-vilant 25 mcg inhalat.powder (Trelegy Ellipta) metoprolol succinate 25 mg 25 mg PO QAM 07/20/23 08/31/24 History tablet,extended release 24 hr naproxen sodium 220 mg tablet 440 mg PO Q12H PRN Pain 07/20/23 08/31/24 History (Aleve) omeprazole 20 mg capsule,delayed 20 mg PO DAILYBB 07/20/23 08/31/24 History release psyllium (Hydrocil oral powder) 1 tbsp PO DAILY PRN Constipation 07/20/23 08/31/24 History multivitamin with folic acid 400 1 tab PO QAM #30 tabs 08/03/23 08/31/24 Rx mcg tablet (Daily-Keturah (with folic acid)) Flutter Valve #1 ea 09/11/23 08/31/24 Rx etanercept 50 mg/mL (1 mL) 50 mg subcut WK 06/22/24 08/31/24 History subcutaneous syringe (Enbrel) diltiazem HCl 1 tab PO DAILY 08/31/24 08/31/24 History Past Med/Surg History Problem List (Updated 08/31/24 @ 15:22 by Marquis Barragan MD) Pneumonia Mass of upper lobe of left lung Hypersomnolence Encounter for pre-operative examination Abnormal chest CT Anxiety Immunocompromised state COPD (chronic obstructive pulmonary disease) Medical History Anxiety and depression Asthma COPD (chronic obstructive pulmonary disease) Cryptogenic organizing pneumonia Pulmonary visit 06/2024: "follow-up after ongoing treatment for [employer] ST[employer]. RECOMMENDATIONS: 1. Cryptogenic organizing pneumonia -she received several weeks of prednisone therapy with decrease in size of the left upper lobe masslike consolidation. Bronchoscopic brushings were negative for malignancy. She still has a masslike consolidation left upper lobe." GERD (gastroesophageal reflux disease) HTN (hypertension) Hx of sepsis 07/2023 - [facility] Mass of upper lobe of left lung Dr Moody Mood disorder NAFLD (nonalcoholic fatty liver disease) Prediabetes Per records, patient denies Pulmonary embolism 07/2023 per records, patient denies Rheumatoid arthritis SVT (supraventricular tachycardia) Follows with Dr. Navas Surgical History History of bronchoscopy (09/25/23) History of carpal tunnel release Right History of colonoscopy History of thoracentesis History of tubal ligation History of wisdom tooth extraction Family History Other Asthma Breast cancer COPD (chronic obstructive pulmonary disease) Social History Smoking Status: Current every day smoker Tobacco Type: Cigarettes Cigarettes Per Day: 1 pack; Second Hand Exposure: No; Do You Dip or Chew Tobacco: No; Tobacco Cessation Education Requested by Patient: No Hx Alcohol Use: Yes Alcohol type: hard liquor Hx Substance Use: No Preferred Language: Syrian Communication Ability: Effective 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 Head Required: No Beliefs That Will Affect Care: None Current Living Situation: Spouse Other Information That Helps Us Care for You: No Feels Safe at Home: Yes Safety Concerns: Feels Safe At This Time Assistive Devices: None Review of Systems Review of Systems: all noted and negative except for above Physical Exam Physical Exam: General- oriented x 3, not in distress, speaks in sentences with no effort or accessory muscle use Head- atraumatic Eyes- PERRL, EOMI, anicteric ENT- oropharynx clear Neck- supple, no JVD, no adenopathy, no thyromegaly; carotids +2/2, no bruits appreciated Lungs- mildly decreased BS on the left mid-base clear on the right Heart- normal rate, regular rhythm; no murmur, no gallop, no rub appreciated Abdomen- normal bowel sounds, nondistended, soft, nontender, no masses or hepatosplenomegaly Extremities- no pretibial edema, no calf tenderness; peripheral pulses intact Neuro- alert, oriented x 3; CN 2-12 grossly intact; motor 5/5 bilaterally;sensation 100% on all extremities; no other gross focal neurologic deficits Skin- warm & dry Results & Data Results & Data Vital Signs (Past 12 Hours) Vital Signs Temp Pulse Pulse Resp BP Pulse Ox O2 Del Method 08/31/24 15:05 75 14 156/78 H 94 Nasal Cannula 08/31/24 14:35 78 14 165/77 H 96 Nasal Cannula 08/31/24 14:20 75 14 154/77 H 95 Nasal Cannula 08/31/24 14:05 82 14 149/80 H 94 Nasal Cannula 08/31/24 13:50 78 15 158/75 H 90 Room Air 08/31/24 13:35 77 15 156/84 H 94 Nasal Cannula 08/31/24 13:25 36.6 C 79 14 158/77 H 95 Nasal Cannula 08/31/24 13:15 78 15 156/74 H 94 Nasal Cannula 08/31/24 13:05 80 17 158/70 H 95 Nasal Cannula 08/31/24 12:55 80 16 147/75 H 95 Nasal Cannula 08/31/24 12:45 86 14 123/84 94 Room Air 08/31/24 12:35 86 15 146/73 H 99 Oxymask 08/31/24 12:26 36.1 C L 88 10 L 143/85 H 97 Oxymask 08/31/24 09:15 61 16 97 Room Air 08/31/24 08:37 Room Air 08/31/24 08:37 36.8 C 61 18 155/62 H 97 Room Air O2 Flow Rate 08/31/24 15:05 2 08/31/24 14:35 2 08/31/24 14:20 2 08/31/24 14:05 2 08/31/24 13:50 08/31/24 13:35 2 08/31/24 13:25 2 08/31/24 13:15 2 08/31/24 13:05 2 08/31/24 12:55 2 08/31/24 12:45 08/31/24 12:35 4 08/31/24 12:26 4 08/31/24 09:15 08/31/24 08:37 08/31/24 08:37 Code Status & VTE Plan VTE Prophylaxis Plan VTE Prophylaxis will be ordered: No
[2024-08-31] MEDS: LEVALBUTEROL 1.25 MG/3 ML NEB NEB SCH (16:33)
[2024-08-31 16:46] LABS: Hematocrit (blood only) 36.4 % (37.0-47.0); Mean Corpuscular Hemoglobin 33.7 pg (25.0-34.0); Mean Corpuscular Volume 102.2 fL (80.0-100.0); Mean Platelet Volume 9.9 fL (9.4-12.4); Platelet Count 239 K/uL (130-400); RDW Coefficient of Variation 14.5 % (11.5-14.5); RDW Standard Deviation 54.5 fL (36.4-46.3); Red Blood Count 3.56 M/uL (4.20-5.40); White Blood Count 8.03 K/ul (4.8-10.8)
[2024-08-31] MEDS: 4.5GM X1 IV STA (16:57)
[2024-08-31 17:00] LABS: BUN Creatinine Ratio 19.8 (10-20); Calcium 8.1 mg/dl (8.6-10.3); Creatinine Clr Calc Pharmacy 73.1 ml/min; Potassium 4.2 mmol/L (3.5-5.1)
[2024-08-31] MEDS: dilTIAZem HCL 240 MG CAPCR PO ONE (17:26)
[2024-08-31] MEDS: METOPROLOL SUCC 25MG EXT REL TAB PO STA (17:26)
[2024-08-31 17:28] LABS: Basophils # (auto) 0.03 K/uL (0.00-0.20); Basophils % (auto) 0.4 %; Eosinophils # (auto) 0.01 K/uL (0.00-0.50); Eosinophils % (auto) 0.1 %; Immature Granulocytes # (auto) 0.04 K/uL (0.01-0.20); Immature Granulocytes % (auto) 0.5 %; Lymphocytes # (auto) 0.74 K/uL (1.20-3.40); Lymphocytes % (auto) 9.2 %; Monocytes # (auto) 0.09 K/uL (0.11-0.59); Monocytes % (auto) 1.1 %; Neutrophils # (auto) 7.12 K/uL (1.40-6.50); Neutrophils % (auto) 88.7 %
[2024-08-31] MEDS: FORMOTEROL 20 MCG/2 ML VIAL NEB SCH (19:09)
[2024-08-31] MEDS: SODIUM CHLOR 7% 4 ML NEB NEB SCH (19:09)
[2024-08-31] MEDS: BUDESONIDE 0.5 MG/2 ML VIAL (PULMICORT) NEB SCH (19:09)
[2024-08-31] MEDS: IPRATROPIUM BROMIDE NEB SOLN 0.02% 0.5MG/2.5ML VIAL NEB SCH (19:10)
[2024-08-31] MEDS: guaiFENesin 600 MG TABCR PO SCH (20:19)
--- NOTE | 2024-08-31 21:37 | Electrocardiogram Report ---
Test Reason : Blood Pressure : */* mmHG Vent. Rate : 73 BPM Atrial Rate : 73 BPM P-R Int : 156 ms QRS Dur : 84 ms QT Int : 410 ms P-R-T Axes : 23 -5 137 degrees QTcB Int : 452 ms Normal sinus rhythm Minimal voltage criteria for LVH, may be normal variant ( R in aVL ) Nonspecific T wave abnormality Abnormal ECG When compared with ECG of 06-Oct-2023 03:07, Nonspecific T wave abnormality, worse in Anterolateral leads Confirmed by Glen Sky ([id number]) on 08/31/2024 9:37:16 PM Referred By: Juancarlos Moody Confirmed By: Glen Sky
[2024-08-31] MEDS: PIPERACILLIN/TAZOBACTAM 4.5 GM/100 ML BAG IV SCH (22:09)
[2024-08-31] MEDS: ACETAMINOPHEN 325 MG TAB PO PRN (22:12)
[2024-08-31 23:29] LABS: Adenovirus PCR Not Detected (NotDetected); Bordetella parapertussis PCR Not Detected (NotDetected); Bordetella pertussis PCR Not Detected (NotDetected); Chlamydia pneumoniae PCR Not Detected (NotDetected); Coronavirus 229E PCR Not Detected (NotDetected); Coronavirus CoV-2 (COVID19)PCR Not Detected (NotDetected); Coronavirus HKU1 PCR Not Detected (NotDetected); Coronavirus NL63 PCR Not Detected (NotDetected); Coronavirus OC43PCR Not Detected (NotDetected); Human Metapneumovirus PCR Not Detected (NotDetected); Influenza A PCR Not Detected (NotDetected); Influenza B PCR Not Detected (NotDetected); Mycoplasma pneumoniae PCR Not Detected (NotDetected); Parainfluenza Virus 1 PCR Not Detected (NotDetected); Parainfluenza Virus 2 PCR Not Detected (NotDetected); Parainfluenza Virus 3 PCR Not Detected (NotDetected); Parainfluenza Virus 4 PCR Not Detected (NotDetected); Respiratory Syncytial VirusPCR Not Detected (NotDetected); Rhinovirus/Enterovirus PCR Not Detected (NotDetected)
[2024-09-01 06:17] LABS: Hematocrit (blood only) 36.9 % (37.0-47.0); Hemoglobin 11.8 g/dl (12.0-16.0); Mean Corpuscular Hemoglobin 32.6 pg (25.0-34.0); Mean Corpuscular Volume 101.9 fL (80.0-100.0); Mean Platelet Volume 9.7 fL (9.4-12.4); Platelet Count 235 K/uL (130-400); RDW Coefficient of Variation 14.6 % (11.5-14.5); RDW Standard Deviation 54.5 fL (36.4-46.3); Red Blood Count 3.62 M/uL (4.20-5.40); White Blood Count 10.15 K/ul (4.8-10.8)
[2024-09-01 06:30] LABS: BUN Creatinine Ratio 20.8 (10-20); Calcium 8.1 mg/dl (8.6-10.3); Creatinine Clr Calc Pharmacy 76.3 ml/min; Potassium 4.4 mmol/L (3.5-5.1)
[2024-09-01 06:43] LABS: Basophils # (auto) 0.03 K/uL (0.00-0.20); Basophils % (auto) 0.3 %; Immature Granulocytes # (auto) 0.05 K/uL (0.01-0.20); Immature Granulocytes % (auto) 0.5 %; Lymphocytes # (auto) 1.08 K/uL (1.20-3.40); Lymphocytes % (auto) 10.6 %; Monocytes # (auto) 0.54 K/uL (0.11-0.59); Monocytes % (auto) 5.3 %; Neutrophils # (auto) 8.45 K/uL (1.40-6.50); Neutrophils % (auto) 83.3 %
[2024-09-01 07:56] VITALS: RESP 18; TEMP 98.1
[2024-09-01 08:51] VITALS: BP 149/79; O2SAT 94
[2024-09-01] MEDS: ADVANCED PROBIOTIC 625 MG CAPSULE PO SCH (08:51)
[2024-09-01] MEDS: METOPROLOL SUCC 25MG EXT REL TAB PO SCH (08:51)
[2024-09-01] MEDS: buPROPion SR 100 MG TABCR PO SCH (08:52)
[2024-09-01] MEDS: ESCITALOPRAM OXALATE 10 MG TAB PO SCH (08:52)
[2024-09-01] MEDS: dilTIAZem HCL 240 MG CAPCR PO SCH (08:52)
[2024-09-01] MEDS ORDERED: NON-FORMULARY MEDICATION (Fluticasone-Umeclidin-Vilanter [Trelegy Ellipta] 100-62.5-25 mcg INH SCH (09:00)
[2024-09-01] MEDS ORDERED: UMECLIDINIUM/VILANTEROL 62.5/25MCG 7 PUFFS/INHALER INH SCH (09:00)
[2024-09-01] MEDS ORDERED: FLUTICASONE FUROATE 100MCG 14 PUFFS/INHALER INH SCH (09:00)
[2024-09-01 09:48] VITALS: PULSE 66
--- NOTE | 2024-09-01 10:57 | Discharge Summary ---
Discharge Summary Date of Service September 01, 2024 Principal Dx & Hospital Course #1 = Principal Diagnosis (1) Mass of upper lobe of left lung: (2) Acute respiratory failure with hypoxia: (3) Postobstructive pneumonia: (4) Atelectasis of left lung: Plan Patient was admitted to the hospital status post bronchoscopy where she had some ongoing hypoxia and oxygen requirements. She is empirically treated for pneumonia and supported with oxygen. Through the course of her hospitalization she was titrated off oxygen. On the morning of discharge she was on room air. She had no chest pain or shortness of breath. There was no evidence of postprocedural pneumothorax. Chest x-ray and follow-up showed improved aeration of the left lower lobe consistent with a either postprocedure atelectasis or obstruction from the mass that she was having biopsy. She was evaluated by pulmonary. She would benefit from a 5-day course of Levaquin. She will be discharged home to follow-up with her PCP and photocopy operator to review results of her testing of her bronchoscopy yesterday. Notes For Next Care Provider Follow-up testing results and pathology report from bronchoscopy when results available with PCP or pulmonary Medication Changes From Visit Levaquin for 5 days Guaifenesin Admission HPI Per Admitting Provider 59 year old female with history of COPD, smoking, PSVT, HTN, RA on Enbrel, Depression presenting with hypoxia after bronchoscopy. Patient was recently found to have a Left upper lobe lung mass, which was found be PETscan positive. Today, she underwent a bronchoscopy procedure for lung biopsy. She was found to be hypoxic requiring 2 L to maintain O2 sats >90%. CXR s/p Bronch: 1. Cardiomegaly with pulmonary vascular congestion. 2. Trace pleural effusions with mild bibasilar atelectasis. 3. Emphysema with lingular mass redemonstrated. She finished a course of Azithromycin last week for cough symptoms. Patient has history of Legionella pneumonia. On exam, patient seen resting in bed, comfortable, on 2L nasal cannula. States she feels fine overall. Has intermittent productive cough, but no active shortness of breath, chest pain, etc. Admission Exam Per Admitting Provider See H&P Discharge Exam Constitutional: Alert, nontoxic, no acute distress HEENT: Mucous membranes moist. Lungs: Decreased breath sounds left greater than right, no wheezes CV: S1-S2, regular Abdomen: Soft, nontender, nondistended Extremities: No significant edema Neuro: No focal deficits Psych: Cooperative, normal mood Updated Medication List Medication Instructions Recorded Confirmed Type albuterol sulfate 90 mcg/actuation 2 puff inhalation Q4H PRN 07/20/23 08/31/24 History aerosol inhaler (Ventolin HFA) COUGH/SHORT OF BREATH/WHEEZING bupropion HCl 200 mg tablet,12 hr 200 mg PO BID 07/20/23 08/31/24 History sustained-release (Wellbutrin SR) escitalopram oxalate 10 mg tablet 15 mg PO QAM 07/20/23 08/31/24 History (Lexapro) fexofenadine 180 mg tablet 180 mg PO QAM 07/20/23 08/31/24 History (Nguyen Allergy) fluticasone fur. 100 mcg-umeclid 1 inh inhalation QAM 07/20/23 08/31/24 History 62.5 mcg-vilant 25 mcg inhalat.powder (Trelegy Ellipta) metoprolol succinate 25 mg 25 mg PO QAM 07/20/23 08/31/24 History tablet,extended release 24 hr naproxen sodium 220 mg tablet 440 mg PO Q12H PRN Pain 07/20/23 08/31/24 History (Aleve) omeprazole 20 mg capsule,delayed 20 mg PO DAILYBB 07/20/23 08/31/24 History release psyllium (Hydrocil oral powder) 1 tbsp PO DAILY PRN Constipation 07/20/23 08/31/24 History multivitamin with folic acid 400 1 tab PO QAM #30 tabs 08/03/23 08/31/24 Rx mcg tablet (Daily-Keturah (with folic acid)) Flutter Valve #1 ea 09/11/23 08/31/24 Rx etanercept 50 mg/mL (1 mL) 50 mg subcut WK 06/22/24 08/31/24 History subcutaneous syringe (Enbrel) diltiazem HCl 1 tab PO DAILY 08/31/24 08/31/24 History guaifenesin 600 mg tablet, 1,200 mg (2 x 600 mg) PO Q12 PRN 09/01/24 Rx extended release 12 hr (Mucinex) congestion/cough #30 tabs levofloxacin 750 mg tablet 750 mg PO DAILY 5 days #5 tabs 09/01/24 Rx Hospital Stay Data Consultations 08/31/24 15:58 Consult Pulmonology Routine Procedures Performed Operation Date: 08/31/24 09:30 Actual Procedures p Robotic Navigational Bronchoscopy, Bronchoalveolar Lavage, Bronchial Brushings, Biopsy(Not Applicable) - Juancarlos Moody MD s Endobronchial Ultrasound,(Not Applicable) - Juancarlos Moody MD Diagnostic Imagining Performed 08/31/24 09:30 FL bronchoscopy Routine Reviewed imaging, laboratory and diagnostic studies. Pertinent findings as below. WBCs 10.1 Hemoglobin 11.8 Electrolytes within normal range Creatinine 0.77 Respiratory viral panel negative Most testing from bronchoscopy still pending Pending Results Patient Have Any Pending Studies at Discharge: Yes Discharge Instructions Given to Patient (Per Discharging Provider) Follow-up with the photocopy operator on the pathology of your lung biopsy Total Time Total Time Spent Total Time Spent (In Minutes): 34
--- NOTE | 2024-09-01 12:48 | XRay Report ---
XR chest 2V PA/lateral HISTORY: 59 years-old Female lll pna acute shortness of breath COMPARISON: 08/31/2024 TECHNIQUE: PA and lateral views of the chest FINDINGS: Megaly with decreased pulmonary vascular congestion. Possible trace pleural effusions. Azygos lobe an d fissure. Degenerative changes of the shoulders and spine. No pneumothorax. Emphysema with lingular mass redemonstrated. Progressive consolidation of the inferior segment lingula. IMPRESSION: 1. Lingular mass redemonstrated with progressive consolidation of the inferior segment lingula which may represent postobstructive pneumonitis. 2. Cardiomegaly with decreased pulmonary vascular congestion. 3. Possible trace pleural effusions. ACT 112: Negative or not required by law. The above report was generated using voice recognition software. It may contain grammatical, syntax o r spelling errors. Electronically signed by: Chencho Coker M.D. 09/01/2024 12:47 PM
[2024-09-04 01:02] LABS: Legionella DNA, Source BAL; Legionella Species DNA NOT DETECTED; Legionella pneumophila DNA NOT DETECTED
== END 2024-09-01 12:34 | disposition home or self-care (01) | DRG 166 ==
LOC: ASU 07:53 → INTOOBSV 14:30 → 2E 14:30 → SUATTDRO 14:30

== ENCOUNTER 2025-04-08 10:22 | Inpatient (IN) ==
--- NOTE | 2025-04-08 11:05 | Emergency Department Note ---
Impression & Plan Upper GI bleed, Abdominal pain, Alcohol abuse ED Provider Note NAME: SEA MORENO AGE: 60 SEX: Female INFORMANT: Patient ED PROVIDER(S): Oseas Duff DO CHIEF COMPLAINT: Vomiting blood HPI: Patient is a 60-year-old female who presents to the ER with a past medical history of anxiety, COPD, and mass of the lung for vomiting. She admits to discomfort in the epigastric region and nausea this morning. She vomited once that she noticed bright red blood present combination with dark blood. She denies any headache or change in vision. No chest pain or shortness of breath. No dysuria, urgency or frequency. No black or tarry stools. She denies any blood thinners. She does admit to drinking alcohol daily and about 4-5 shots per day. No history of esophageal varices. ADDITIONAL HISTORY OBTAINED: notes that she has had imaging before but does have a contrast allergy. Chronic Medical/Social Conditions Affecting Care: Per HPI PAST MEDICAL HISTORY:See Below PAST SURGICAL HISTORY:See Below FAMILY HISTORY:See Below SOCIAL HISTORY:See Below HOME MEDICATIONS:See Below ALLERGIES:See Below VITALS:See Below PHYSICAL EXAMINATION: GENERAL: Sitting up in bed, alert, well appearing, well nourished, no distress, non-toxic EYE EXAM: normal conjunctiva. OROPHARYNX: no exudate, no erythema, lips, buccal mucosa, and tongue normal and mucous membranes are moist NECK: supple, no nuchal rigidity, no adenopathy, non-tender LUNGS: Clear to auscultation. Normal chest wall mechanics HEART: no murmurs, S1 normal and S2 normal ABDOMEN: abdomen soft, non-tender, normo-active bowel sounds, no masses, no rebound or guarding. SKIN: no rashes and no bruising UPPER EXTREMITIES: upper extremities are grossly normal. LOWER EXTREMITIES: No pitting edema. NEURO EXAM: Normal sensorium, cranial nerves II-XII grossly intact, normal speech, no gross weakness of arms, no gross weakness of legs. MEDICAL DECISION MAKING: Patient is a 60-year-old female who presents to the ER for vomiting blood. She has 4-5 shots per night. IV was established and blood work was obtained. Labs show no significant leukocytosis or anemia. BMP with an elevated BUN at 29 which does support an upper GI bleed. LFTs and bilirubin were unremarkable. Lipase was normal. Vitals are stable. She was given IV fluids. CT abdomen pelvis suggest hyperdense products within the stomach concerning for a GI bleed. Patient was given Protonix drip and bolus. Consulted gastroenterology. Patient was discussed with the hospitalist for further evaluation management and treatment. Please see their note for further details. Patient was also given thiamine and folic acid. Did discuss case with Dr. Ramos from gastroenterology and he is aware. Consults/Care Managements Discussions: Per MDM Triage Nursing notes reviewed. Limited review of prior medical records performed Vital Signs: reviewed and remarkable for HTN Differential diagnosis: Differential diagnoses includes but is not limited to gastritis, peptic ulcer disease, GERD, gallbladder disease, pancreatitis, small bowel obstruction, appendicitis, diverticulitis, hernia, urinary tract infection, torsion, perforation, trauma, infectious. ER treatment provided: See below Diagnostics interpreted by me include EKG and cardiac monitoring as listed below: -Cardiac Monitoring: An order was placed for continuous cardiac monitoring. The monitor shows a rate of 80 with sinus rhythm. -ECG: Sinus rhythm at 67 Normal axis No PVCs Septal Q waves QTc 454 No significant change from previous -Laboratory studies:Interpreted by me as stated above in MDM and shown below. Imaging studies: Xrays: As interpreted by me:none CTs show: CT abdomen pelvis per my pleurae interpretation shows no obvious bowel obstruction CT abdomen pelvis per radiology as described above Procedures:none Critical Care: None Past Med/Surg History Problem List (Updated 04/08/25 @ 12:49 by Oseas Duff DO) Alcohol abuse (Acute) Abdominal pain (Acute) History of alcohol use disorder Upper GI bleed (Acute) Atelectasis of left lung Postobstructive pneumonia Pneumonia Mass of upper lobe of left lung Hypersomnolence Encounter for pre-operative examination Abnormal chest CT Anxiety Immunocompromised state COPD (chronic obstructive pulmonary disease) Medical History Hx of sepsis 07/2023 - [facility] Prediabetes Per records, patient denies Cryptogenic organizing pneumonia Pulmonary visit 06/2024: "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 RECOMMENDATIONS: 1. Cryptogenic organizing pneumonia -she received several weeks of prednisone therapy with decrease in size of the left upper lobe masslike consolidation. Bronchoscopic brushings were negative for malignancy. She still has a masslike consolidation left upper lobe." Mass of upper lobe of left lung Dr Moody NAFLD (nonalcoholic fatty liver disease) Pulmonary embolism 07/2023 per records, patient denies GERD (gastroesophageal reflux disease) Anxiety and depression SVT (supraventricular tachycardia) Follows with Dr. Navas COPD (chronic obstructive pulmonary disease) Asthma Mood disorder HTN (hypertension) Rheumatoid arthritis Surgical History History of thoracentesis History of bronchoscopy (09/25/23) History of carpal tunnel release Right History of tubal ligation History of wisdom tooth extraction History of colonoscopy Family History Other Asthma Breast cancer COPD (chronic obstructive pulmonary disease) Social History Smoking Status: Current every day smoker Tobacco Type: Cigarettes Cigarettes Per Day: 1 pack; Second Hand Exposure: No; Do You Dip or Chew Tobacco: No; Hx Alcohol Use: Yes Alcohol type: hard liquor Hx Substance Use: No Preferred Language: Omani Communication Ability: Effective Pathology Secretary Required: No Beliefs That Will Affect Care: None Current Living Situation: Spouse Feels Safe at Home: Yes Assistive Devices: None Allergies Allergies Allergy/AdvReac Type Severity Reaction Status Date / Time Iodinated Contrast Media Allergy Severe Anaphylaxis Verified 01/27/25 13:38 nickel Allergy Mild Rash Verified 01/27/25 13:38 Home Meds Home Medications Medication Instructions Recorded Confirmed albuterol sulfate 90 mcg/actuation 2 puff inhalation Q4H PRN 07/20/23 10/05/24 aerosol inhaler (Ventolin HFA) COUGH/SHORT OF BREATH/WHEEZING bupropion HCl 200 mg tablet,12 hr 200 mg PO BID 07/20/23 10/05/24 sustained-release (Wellbutrin SR) escitalopram oxalate 10 mg tablet 15 mg PO QAM 07/20/23 10/05/24 (Lexapro) fexofenadine 180 mg tablet 180 mg PO QAM 07/20/23 10/05/24 (Nguyen Allergy) fluticasone fur. 100 mcg-umeclid 1 inh inhalation QAM 07/20/23 10/05/24 62.5 mcg-vilant 25 mcg inhalat.powder (Trelegy Ellipta) metoprolol succinate 25 mg 25 mg PO QAM 07/20/23 10/05/24 tablet,extended release 24 hr naproxen sodium 220 mg tablet 440 mg PO Q12H PRN Pain 07/20/23 10/05/24 (Aleve) omeprazole 20 mg capsule,delayed 20 mg PO DAILYBB 07/20/23 10/05/24 release psyllium (Hydrocil oral powder) 1 tbsp PO DAILY PRN Constipation 07/20/23 10/05/24 etanercept 50 mg/mL (1 mL) 50 mg subcut WK 06/22/24 10/05/24 subcutaneous syringe (Enbrel) diltiazem HCl 1 tab PO DAILY 08/31/24 10/05/24 Previous Rx's Medication Instructions Recorded multivitamin with folic acid 400 1 tab PO QAM #30 tabs 08/03/23 mcg tablet (Daily-Keturah (with folic acid)) Flutter Valve #1 ea 09/11/23 guaifenesin 600 mg tablet, 1,200 mg (2 x 600 mg) PO Q12 PRN 09/01/24 extended release 12 hr (Mucinex) congestion/cough #30 tabs Results & Data (ED) Vital Signs Vital Signs - 24 hr 04/08/25 10:39 04/08/25 12:22 Temperature 36.6 C Temperature Source Temporal Artery Scan Pulse Rate 84 Pulse Rate [Apical] 70 Pulse Rhythm Regular Pulse Strength Normal Respiratory Rate 16 20 Respiratory Effort / Characteristics Non-Labored Respiratory Depth Normal Blood Pressure 164/107 H Blood Pressure Mean 126 Blood Pressure Position Sitting Pulse Oximetry 96 97 Oxygen Delivery Method Room Air Sepsis Recent Fever Within 48 Hours No Sepsis New/Unexplained Change in Mental Status N/A Sepsis Action Taken by Nursing No Action Required Laboratory Data 04/08/25 11:17 04/08/25 11:17 Lab Results 04/08/25 04/08/25 Range/Units 11:17 11:21 WBC 9.14 (4.8-10.8) K/ul RBC 3.87 L (4.20-5.40) M/uL Hgb 12.7 (12.0-16.0) g/dl POC Hgb 12.9 (12.0-16.0) g/dl Hct 38.4 (37.0-47.0) % POC Hct 38 (37-47) % MCV 99.2 (80.0-100.0) fL MCH 32.8 (25.0-34.0) pg MCHC 33.1 (32.0-36.0) g/dL RDW Std Deviation 49.0 H (36.4-46.3) fL RDW Coeff of Ilia 13.5 (11.5-14.5) % Plt Count 208 (130-400) K/uL MPV 10.2 (9.4-12.4) fL Immature Gran % (Auto) 0.3 % Neut % (Auto) 76.8 % Lymph % (Auto) 13.8 % Caswell % (Auto) 7.2 % Eos % (Auto) 1.5 % Baso % (Auto) 0.4 % Neut # (Auto) 7.01 H (1.40-6.50) K/uL Lymph # (Auto) 1.26 (1.20-3.40) K/uL Caswell # (Auto) 0.66 H (0.11-0.59) K/uL Eos # (Auto) 0.14 (0.00-0.50) K/uL Baso # (Auto) 0.04 (0.00-0.20) K/uL Immature Gran # (Auto) 0.03 (0.01-0.20) K/uL POC Sodium 142 (135-144) mmol/L Sodium 141 (136-145) mmol/L POC Potassium 3.8 (3.3-5.0) mmol/L Potassium 3.8 (3.5-5.1) mmol/L POC Chloride 108 (101-112) mmol/L Chloride 107 (98-107) mmol/L Carbon Dioxide 25 (21-32) mmol/L POC Total CO2 24 (24-31) mmol/L Anion Gap 9 (3-11) POC Anion Gap 14.0 L (16-25) mmol/L POC BUN 28 H (7-18) mg/dl BUN 29 H (6-23) mg/dl Creatinine 0.79 (0.6-1.2) mg/dl POC Creatinine 0.8 (0.6-1.3) mg/dl Est Cr Clr Drug Dosing 69.0 ml/min eGFR 85.58 BUN/Creatinine Ratio 36.7 H (10-20) Glucose 101 H (70-99(Fasting)) mg/dl POC Glucose (other) 100 H (70-99) mg/dl Calcium 9.1 (8.6-10.3) mg/dl POC Ioniz Calcium Bruce 1.15 (1.12-1.32) mmol/l Total Bilirubin 0.7 (0.2-1.0) mg/dl AST 17 (13-39) U/L ALT 13 (7-52) U/L Alkaline Phosphatase 57 (34-104) U/L Total Protein 7.3 (6.0-8.3) gm/dl Albumin 3.7 (3.4-5.0) gm/dl Globulin 3.6 (2.5-4.0) gm/dl Albumin/Globulin Ratio 1.0 (0.9-2) Lipase 23 (11-82) U/L Administered Medications Discontinued Medications Al Hydrox/Mg Hydrox/Simethicone (Aluminum/Magnesium Susp 30 Ml Udc) 30 ml PO NOW STA Stop: 04/08/25 11:02 Last Admin: 04/08/25 11:09 Dose: 30 ml Documented By: CHARLES Sodium Chloride (Nss) 1,000 mls @ 999 mls/hr IV .Q1H1M ONE Stop: 04/08/25 12:01 Last Infusion: 04/08/25 12:53 Dose: Infused Documented By: Admin: 04/08/25 11:22 Dose: 999 mls/hr Documented By: CHARLES Pantoprazole Sodium (Protonix) 40 mg in 10 mls @ 5 mls/min IV NOW ONE Stop: 04/08/25 11:06 Last Admin: 04/08/25 11:23 Dose: 5 mls/min Documented By: CHARLES Pantoprazole Sodium 80 mg/ (Dextrose) 120 mls @ 480 mls/hr IV NOW ONE Stop: 04/08/25 12:39 Last Admin: 04/08/25 12:33 Dose: Not Given Documented By: KEHINDE Ondansetron HCl (Ondansetron Inj 2 Mg/Ml 2 Ml Vial) 4 mg IV NOW STA Stop: 04/08/25 11:02 Last Admin: 04/08/25 11:16 Dose: 4 mg Documented By: CHARLES Imaging Data Radiologist's Impression: Abdomen/Pelvis CT 04/08/25 11:03 CT OF THE ABDOMEN AND PELVIS WITHOUT CONTRAST CLINICAL HISTORY: Hematemesis. COMPARISON STUDY: PET/CT July 09, 2024. CT of the abdomen and pelvis July 23, 2023. Chest CT December 25, 2024. TECHNIQUE: Axial images of the abdomen and pelvis were obtained without IV contrast. Images were reviewed in the axial, sagittal, and coronal planes. Automated exposure control was utilized for the study. A dose lowering technique was utilized adhering to the principles of ALARA. FINDINGS: A few small subpleural right lower lobe nodules have slightly increased in size since recent chest CT. The largest is a 5 mm nodule on image 5329. Emphysema within the lower lungs is noted. Right middle lobe density favors scarring. No pneumatosis, free air or portal venous gas is present. There is a 3.7 x 1.6 cm intraluminal hyperdense focus within the gastric body on image 60. A small amount of hyperdense material within the dependent aspect of the second portion of the duodenum is present. Wall thickening of the gastric antrum is noted. There is no extraluminal gas. There are no fluid collections. No renal, ureteral or bladder calculi are present. There is no hydronephrosis. Evaluation of the remainder of the abdomen and pelvis is suboptimal on this unenhanced exam. Liver, spleen, adrenal glands and pancreas are unremarkable. There is colonic diverticulosis. No evidence for acute diverticulitis. No acute fractures are identified. IMPRESSION: 1. 3.7 x 1.6 cm intraluminal hyperdense focus within the gastric body small amount of hyperdense material within the dependent aspect of the second duodenum. Given the clinical history, these may represent clots. However, ingested material could appear similar. 2. Wall thickening of the gastric antrum. This is likely due to underdistention although is nonspecific and gastritis is within the differential. 3. No bowel obstruction. Normal appendix. Colonic diverticulosis. 4. Slight increase in size of several small subpleural nodules within the right lower lobe measuring up to [address] in 3-6 months is recommended for further evaluation. ACT 112: Positive. There are findings on this exam that require communication between the performing entity and the patient following Patient Test Result Information Act ([place] Act 112) guidelines. Electronically signed by: Ebenezer Carroll M.D. 04/08/2025 12:08 PM Discharge Plan Visit Data Chief Complaint: Vomiting Stated Complaint: VOMITING BLOOD ED Provider: Oseas Duff Discharge Problem: Upper GI bleed, Abdominal pain, Alcohol abuse Condition: Fair Forms Stand Alone Forms: My [facility] Prescriptions Prescriptions: No Action (DME) Flutter Valve Device See Rx Instructions .MEDSUPPLY Qty: 1 0RF Rx Instructions: Four times daily Enbrel 50 mg/mL (1 mL) syringe 50 mg subcut WK Rx Instructions: once a week on saturday fexofenadine [Nguyen Allergy] 180 mg Tablet 180 mg PO QAM Hydrocil Powder 1 tbsp PO DAILY PRN (Reason: Constipation) Rx Instructions: mix into at least 8 oz of water or juice before administering naproxen sodium [Aleve] 220 mg Tablet 440 mg PO Q12H PRN (Reason: Pain) omeprazole 20 mg capsule,delayed release(DR/EC) 20 mg PO DAILYBB metoprolol succinate 25 mg tablet extended release 24 hr 25 mg PO QAM albuterol sulfate [Ventolin HFA] 90 mcg/actuation Hfa Aerosol Inhaler 2 puff INHALATION Q4H PRN (Reason: COUGH/SHORT OF BREATH/WHEEZING) bupropion HCl [Wellbutrin SR] 200 mg tablet sustained-release 12 hr 200 mg PO BID Rx Instructions: TAKES QAM THEN AT 1500. escitalopram oxalate [Lexapro] 10 mg tablet 15 mg PO QAM Trelegy Ellipta 100-62.5-25 mcg blister with device 1 inh INHALATION QAM multivitamin with folic acid [Daily-Keturah (with folic acid)] 400 mcg Tablet 1 tab PO QAM Qty: 30 0RF diltiazem HCl 1 tab PO DAILY Rx Instructions: Pt unsure of dosage guaifenesin [Mucinex] 600 mg Tablet Extended Release 12hr 1,200 mg PO Q12 PRN (Reason: congestion/cough) Qty: 30 0RF Referrals Referrals: Lilly Thorne MD [Primary Care Provider] - Discharge Problem: Abdominal pain Qualifiers: Abdominal location: unspecified location Qualified Code(s): R10.9 - Unspecified abdominal pain
[2025-04-08] MEDS: ALUMINUM/MAGNESIUM SUSP 30 ML UDC PO STA (11:09)
[2025-04-08] MEDS: ONDANSETRON INJ 2 MG/ML 2 ML VIAL IV STA (11:16)
[2025-04-08] MEDS: SODIUM CHLORIDE 0.9% 1,000 ML IV ONE (11:22)
[2025-04-08] MEDS: PANTOprazole 40 MG/10 ML SYR IV ONE (11:23)
[2025-04-08 11:48] LABS: Hematocrit (blood only) 38.4 % (37.0-47.0); Hemoglobin 12.7 g/dl (12.0-16.0); Immature Granulocytes # (auto) 0.03 K/uL (0.01-0.20); Immature Granulocytes % (auto) 0.3 %; Mean Corpuscular Hemoglobin 32.8 pg (25.0-34.0); Mean Corpuscular Volume 99.2 fL (80.0-100.0); Platelet Count 208 K/uL (130-400); RDW Standard Deviation 49.0 fL (36.4-46.3); Red Blood Count 3.87 M/uL (4.20-5.40); White Blood Count 9.14 K/ul (4.8-10.8)
--- NOTE | 2025-04-08 12:09 | CT Scan Report ---
CT OF THE ABDOMEN AND PELVIS WITHOUT CONTRAST CLINICAL HISTORY: Hematemesis. COMPARISON STUDY: PET/CT July 09, 2024. CT of the abdomen and pelvis July 23, 2023. Chest CT December 25, 2024. TECHNIQUE: Axial images of the abdomen and pelvis were obtained without IV contrast. Images were revi ewed in the axial, sagittal, and coronal planes. Automated exposure control was utilized for the zoltan dy. A dose lowering technique was utilized adhering to the principles of ALARA. FINDINGS: A few small subpleural right lower lobe nodules have slightly increased in size since recen t chest CT. The largest is a 5 mm nodule on image 5329. Emphysema within the lower lungs is noted. Ri ght middle lobe density favors scarring. No pneumatosis, free air or portal venous gas is present. Th ere is a 3.7 x 1.6 cm intraluminal hyperdense focus within the gastric body on image 60. A small amou nt of hyperdense material within the dependent aspect of the second portion of the duodenum is presen t. Wall thickening of the gastric antrum is noted. There is no extraluminal gas. There are no fluid c ollections. No renal, ureteral or bladder calculi are present. There is no hydronephrosis. Evaluation of the remainder of the abdomen and pelvis is suboptimal on this unenhanced exam. Liver, spleen, adr enal glands and pancreas are unremarkable. There is colonic diverticulosis. No evidence for acute div erticulitis. No acute fractures are identified. IMPRESSION: 1. 3.7 x 1.6 cm intraluminal hyperdense focus within the gastric body small amount of hyperdense mate rial within the dependent aspect of the second duodenum. Given the clinical history, these may repres ent clots. However, ingested material could appear similar. 2. Wall thickening of the gastric antrum. This is likely due to underdistention although is nonspecif ic and gastritis is within the differential. 3. No bowel obstruction. Normal appendix. Colonic diverticulosis. 4. Slight increase in size of several small subpleural nodules within the right lower lobe measuring up to [address] in 3-6 months is recommended for further evaluation. ACT 112: Positive. There are findings on this exam that require communication between the performing entity and the patient following Patient Test Result Information Act ([place] Act 112) guidelines. Electronically signed by: Ebenezer Carroll M.D. 04/08/2025 12:08 PM
[2025-04-08 12:12] LABS: Alanine Aminotransferase 13.0 U/L (7-52); Albumin Globulin Ratio 1.0 (0.9-2); Alkaline Phosphatase 57.0 U/L (34-104); Anion Gap 9.0 (3-11); Bilirubin,Total 0.7 mg/dl (0.2-1.0); Blood Urea Nitrogen 29.0 mg/dl (6-23); Calcium 9.1 mg/dl (8.6-10.3); Carbon Dioxide 25.0 mmol/L (21-32); Chloride 107.0 mmol/L (98-107); Creatinine Clr Calc Pharmacy 69.0 ml/min; Globulin 3.6 gm/dl (2.5-4.0); Glucose 101.0 mg/dl (70-99(Fasting)); Lipase 23.0 U/L (11-82); Potassium 3.8 mmol/L (3.5-5.1); Sodium 141.0 mmol/L (136-145); Total Protein 7.3 gm/dl (6.0-8.3)
--- NOTE | 2025-04-08 12:36 | History & Physical Report ---
<Statement entered by Heraclio Fernandez, DO - 04/08/25 14:47> Patient seen and examined at bedside #Hematemesis -Suspect PUD/gastritis -Denies NSAID use but endorses 4 alcoholic beverages per day -No further episodes and Hgb, BP stable Plan -Keep NPO until evaluated by GI -Will need endoscopy at some point -Counseled on alcohol and NSAID use -Follow Hgb. transfuse < 7 #alcohol use -No history of withdrawal -Low risk of withdrawal. 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 No further bouts of hematemesis since arrival to ED. History of chronic alcohol use. Typically consumes 4 vodka sodas per night x several years. Denies any history of alcohol withdrawal or alcohol withdrawal seizures. #Upper GI bleed --> suspect 2/2 alcohol-induced gastritis #Chronic alcohol use CTAP: 3.7 x 1.6cm intraluminal hyperdense focus w/in the gastric body and small amt of hyperdense material w/in 2nd duodenum c/f clots, possible gastritis Hgb stable at 12.7 on admission Follow H/H trend Type/screen ordered Will obtain blood consent as precautionary measure but no indication to transfuse at this time No prior EGD per OP chart review IV Protonix bolus + drip starting in ED --> continue for now Appreciate GI eval -TT communication w/ Dr. Ramos --> will plan on EGD today, maintain NPO status PRN antiemetics PRN analgesia, re: epigastric pain (likely 2/2 underlying gastritis) Maintenance IVF while NPO status At-risk IV Ativan alc w/d protocol, monitor AWSS IV thiamine, IV folic acid LFTs WNL on admission --> continue to monitor Alcohol cessation strongly encouraged #HTN PRN IV hydralazine 5mg Q4H for SBP>185 Resume antihypertensives as able pending EGD eval #Depression/anxiety Resume home regimen as able pending EGD eval #COPD/centrilobular emphysema No s/sx of acute exacerbation Continue home inhaler #Osteoporosis On alendronate at home --> hold while inpt -Could certainly also be c/t gastritis #Tobacco use disorder Smokes 1ppd since teenage years Nicotine patch ordered Smoking cessation strongly encouraged DVT Prophylaxis: SCDs/TEDs only for now ISO above Disposition: Admit to PCU Patient seen in collaboration with Dr. Fernandez. Please see addendum. I spent a total of 62 minutes coordinating, documenting, and providing care for this patient excluding time spent in the performance of separately billed services or time spent by another provider/QHP. This included personally reviewing all current laboratories and imaging studies, medical reconciliation, outpatient chart review and discussion with specialists. This chart was completed in part utilizing Speech Voice Recognition Software. Grammatical errors, random word insertions, pronoun errors, and incomplete sentences are an occasional consequence of this system due to software limitations, ambient noise, and hardware issues. Any formal questions or concerns about the content, text, or information contained within the body of this dictation should be directly addressed to the provider for clarification. 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 History obtained from the patient, discussion with ED provider and associated chart review. History of chronic alcohol use. Typically consumes 4 vodka sodas per night x several years. Denies any history of alcohol withdrawal or alcohol withdrawal seizures. Also with strong smoking history. Has been smoking 1ppd since her teenage years. States she woke up this morning feeling quite nauseous. Had 4 different episodes of vomiting. Admits to vomiting up dark red, small blood clots and then her vomitus progressed to bright red in coloration. She contacted her PCP's office when this occurred and they advised her to come into the ED for evaluation. Admits to some mild epigastric discomfort and pain but denies any SOB, difficulty breathing, chest pain or urinary/bowel habit changes. No further bouts of hematemesis since arriving to the ED. Not on any anticoagulants. Did not take any of her home medications this morning. Denies ever experiencing any prior bouts of hematemesis. Does not recall any prior EGDs. Allergies Allergy/AdvReac Type Severity Reaction Status Date / Time Iodinated Contrast Media Allergy Severe Anaphylaxis Verified 01/27/25 13:38 nickel Allergy Mild Rash Verified 01/27/25 13:38 Home Medications Medication Instructions Recorded Confirmed Type albuterol sulfate 90 mcg/actuation 2 puff inhalation Q4H PRN 07/20/23 04/08/25 History aerosol inhaler (Ventolin HFA) COUGH/SHORT OF BREATH/WHEEZING bupropion HCl 200 mg tablet,12 hr 200 mg PO BID 07/20/23 04/08/25 History sustained-release (Wellbutrin SR) escitalopram oxalate 10 mg tablet 20 mg PO QAM 07/20/23 04/08/25 History (Lexapro) fexofenadine 180 mg tablet 180 mg PO QAM 07/20/23 04/08/25 History (Nguyen Allergy) fluticasone fur. 100 mcg-umeclid 1 inh inhalation QAM 07/20/23 04/08/25 History 62.5 mcg-vilant 25 mcg inhalat.powder (Trelegy Ellipta) metoprolol succinate 25 mg 25 mg PO QAM 07/20/23 04/08/25 History tablet,extended release 24 hr omeprazole 20 mg capsule,delayed 20 mg PO DAILYBB 07/20/23 04/08/25 History release multivitamin with folic acid 400 1 tab PO QAM #30 tabs 08/03/23 04/08/25 Rx mcg tablet (Daily-Keturah (with folic acid)) Flutter Valve #1 ea 09/11/23 04/08/25 Rx alendronate 70 mg tablet See Rx Instructions .Route .COMPLEX 04/08/25 04/08/25 History diltiazem HCl 240 mg 240 mg PO QAM 04/08/25 04/08/25 History capsule,extended release 24 hr hydralazine 10 mg tablet 10 mg PO TID 04/08/25 04/08/25 History Past Med/Surg History Problem List (Updated 04/08/25 @ 13:51 by Dejah Baumann PA-C) Alcohol use Alcohol abuse (Acute) Abdominal pain (Acute) Upper GI bleed (Acute) Atelectasis of left lung Postobstructive pneumonia Pneumonia Mass of upper lobe of left lung Hypersomnolence Encounter for pre-operative examination Abnormal chest CT Anxiety Immunocompromised state COPD (chronic obstructive pulmonary disease) Medical History (Updated 04/08/25 @ 13:51 by Dejah Baumann PA-C) Hx of sepsis 07/2023 - [facility] Prediabetes Per records, patient denies Cryptogenic organizing pneumonia Pulmonary visit 06/2024: "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 RECOMMENDATIONS: 1. Cryptogenic organizing pneumonia -she received several weeks of prednisone therapy with decrease in size of the left upper lobe masslike consolidation. Bronchoscopic brushings were negative for malignancy. She still has a masslike consolidation left upper lobe." Mass of upper lobe of left lung Dr Moody NAFLD (nonalcoholic fatty liver disease) Pulmonary embolism 07/2023 per records, patient denies GERD (gastroesophageal reflux disease) Anxiety and depression SVT (supraventricular tachycardia) Follows with Dr. Navas COPD (chronic obstructive pulmonary disease) Asthma Mood disorder HTN (hypertension) Rheumatoid arthritis Surgical History History of thoracentesis History of bronchoscopy (09/25/23) History of carpal tunnel release Right History of tubal ligation History of wisdom tooth extraction History of colonoscopy Family History Other Asthma Breast cancer COPD (chronic obstructive pulmonary disease) Social History Smoking Status: Current every day smoker Tobacco Type: Cigarettes Cigarettes Per Day: 1 pack; Second Hand Exposure: No; Do You Dip or Chew Tobacco: No; Hx Alcohol Use: Yes Alcohol type: hard liquor Hx Substance Use: No Preferred Language: Thai Communication Ability: Effective [employer]al Required: No Beliefs That Will Affect Care: None Current Living Situation: Spouse Feels Safe at Home: Yes Assistive Devices: None Review of Systems Review of Systems: At least ten systems reviewed and negative, except as noted in the HPI. Physical Exam Physical Exam: General: NAD, sitting up in bed, A&Ox3, pleasant, conversing appropriately, at bedside HEENT: Normocephalic, atraumatic, oropharynx somewhat dry Respiratory: Normal respiratory effort, decreased air entry bilaterally, no wheezes/crackles Cardiovascular: RRR, normal peripheral pulses, no BLE edema Abdomen/GI: Active bowel sounds, soft, mildly TTP in epigastric region, no guarding Extremities/Musculoskeletal: No cyanosis or clubbing, extremities motor strength intact, moves all extremities Neurologic: No overt focal deficits, CN's II-XI not formally tested but appear grossly intact bilaterally Results & Data Results & Data Vital Signs (Past 12 Hours) Vital Signs Temp Pulse Pulse Resp BP Pulse Ox O2 Del Method 04/08/25 12:22 70 20 97 04/08/25 10:39 36.6 C 84 16 164/107 H 96 Room Air Laboratory Results Short CBC 04/08/25 Range/Units 11:17 WBC 9.14 (4.8-10.8) K/ul Hgb 12.7 (12.0-16.0) g/dl Hct 38.4 (37.0-47.0) % Plt Count 208 (130-400) K/uL BMP 04/08/25 11:17 Sodium 141 Potassium 3.8 Chloride 107 Carbon Dioxide 25 BUN 29 H Creatinine 0.79 Glucose 101 H Calcium 9.1 Liver Function 04/08/25 Range/Units 11:17 Total Bilirubin 0.7 (0.2-1.0) mg/dl AST 17 (13-39) U/L ALT 13 (7-52) U/L Alkaline Phosphatase 57 (34-104) U/L Albumin 3.7 (3.4-5.0) gm/dl Diagnostic Findings Abdomen/Pelvis CT 04/08/25 11:03 CT OF THE ABDOMEN AND PELVIS WITHOUT CONTRAST CLINICAL HISTORY: Hematemesis. COMPARISON STUDY: PET/CT July 09, 2024. CT of the abdomen and pelvis July 23, 2023. Chest CT December 25, 2024. TECHNIQUE: Axial images of the abdomen and pelvis were obtained without IV contrast. Images were reviewed in the axial, sagittal, and coronal planes. Automated exposure control was utilized for the study. A dose lowering technique was utilized adhering to the principles of ALARA. FINDINGS: A few small subpleural right lower lobe nodules have slightly increased in size since recent chest CT. The largest is a 5 mm nodule on image 5329. Emphysema within the lower lungs is noted. Right middle lobe density favors scarring. No pneumatosis, free air or portal venous gas is present. There is a 3.7 x 1.6 cm intraluminal hyperdense focus within the gastric body on image 60. A small amount of hyperdense material within the dependent aspect of the second portion of the duodenum is present. Wall thickening of the gastric antrum is noted. There is no extraluminal gas. There are no fluid collections. No renal, ureteral or bladder calculi are present. There is no hydronephrosis. Evaluation of the remainder of the abdomen and pelvis is suboptimal on this unenhanced exam. Liver, spleen, adrenal glands and pancreas are unremarkable. There is colonic diverticulosis. No evidence for acute diverticulitis. No acute fractures are identified. IMPRESSION: 1. 3.7 x 1.6 cm intraluminal hyperdense focus within the gastric body small amount of hyperdense material within the dependent aspect of the second duodenum. Given the clinical history, these may represent clots. However, ingested material could appear similar. 2. Wall thickening of the gastric antrum. This is likely due to underdistention although is nonspecific and gastritis is within the differential. 3. No bowel obstruction. Normal appendix. Colonic diverticulosis. 4. Slight increase in size of several small subpleural nodules within the right lower lobe measuring up to [address] in 3-6 months is recommended for further evaluation. ACT 112: Positive. There are findings on this exam that require communication between the performing entity and the patient following Patient Test Result Information Act ([place] Act 112) guidelines. Electronically signed by: Ebenezer Carroll M.D. 04/08/2025 12:08 PM Medications Administered Pantoprazole Sodium 80 mg/ (Dextrose) 120 mls @ 480 mls/hr IV NOW ONE Stop: 04/08/25 12:39 Last Admin: 04/08/25 12:33 Dose: Not Given Documented By: NRB Discontinued Medications Al Hydrox/Mg Hydrox/Simethicone (Aluminum/Magnesium Susp 30 Ml Udc) 30 ml PO NOW STA Stop: 04/08/25 11:02 Last Admin: 04/08/25 11:09 Dose: 30 ml Documented By: Sodium Chloride (Nss) 1,000 mls @ 999 mls/hr IV .Q1H1M ONE Stop: 04/08/25 12:01 Last Admin: 04/08/25 11:22 Dose: 999 mls/hr Documented By: CHARLES Pantoprazole Sodium (Protonix) 40 mg in 10 mls @ 5 mls/min IV NOW ONE Stop: 04/08/25 11:06 Last Admin: 04/08/25 11:23 Dose: 5 mls/min Documented By: HCARLES Ondansetron HCl (Ondansetron Inj 2 Mg/Ml 2 Ml Vial) 4 mg IV NOW STA Stop: 04/08/25 11:02 Last Admin: 04/08/25 11:16 Dose: 4 mg Documented By: Code Status & VTE Plan Code Status FULL CODE (3) HTN (hypertension) Hypertension type: unspecified Qualified Code(s): I10 - Essential (primary) hypertension (4) COPD (chronic obstructive pulmonary disease) COPD type: chronic bronchitis Chronic bronchitis type: unspecified Qualified Code(s): J42 - Unspecified chronic bronchitis
[2025-04-08] MEDS ORDERED: FOLIC ACID 1 MG in SYRINGE 9.8 ML IV STA (12:49)
[2025-04-08] MEDS ORDERED: THIAMINE HCL 200 MG in SODIUM CHLORIDE 0.9% 50 ML IV STA (12:49)
[2025-04-08] MEDS ORDERED: MoRPHine SULFATE 2 MG/ML CARP IV PRN (13:41)
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
[2025-04-08 14:52] LABS: Hematocrit (blood only) 36.5 % (37.0-47.0); Hemoglobin 11.9 g/dl (12.0-16.0)
[2025-04-08] MEDS ORDERED: POLYETHYLENE (MIRALAX) 17 GM PACK PO PRN (14:55)
[2025-04-08] MEDS ORDERED: ONDANSETRON INJ 2 MG/ML 2 ML VIAL IV PRN ×2 (14:55→15:22)
[2025-04-08] MEDS ORDERED: MAGNESIUM HYDROXIDE SUSP 30 ML UDC PO PRN (14:55)
[2025-04-08] MEDS ORDERED: ONDANSETRON INJ 2 MG/ML 2 ML VIAL ONE (15:03)
[2025-04-08] MEDS ORDERED: SUCCINYLCHOLINE 100MG/5ML SYR IV ONE ×2 (15:03→16:54)
[2025-04-08] MEDS ORDERED: PROPOFOL IV EMULSION 10 MG/ML 20 ML VIAL IV ONE ×2 (15:03→17:27)
[2025-04-08] MEDS ORDERED: LIDOCAINE 2% 2 ML VIAL/AMP(20MG/ML) INFIL ONE (15:03)
[2025-04-08] MEDS ORDERED: ATROPINE SULFATE 0.1 MG/ML 10ML SYR IV PRN (15:22)
--- NOTE | 2025-04-08 15:22 | Anesthesiology Consultation ---
Date of Service April 08, 2025 Assessment & Plan (1) Encounter for pre-operative examination: Chart Review Chart Review: Acceptable Risk for Surgery and Patient NOT seen in Pre Admission Testing Consults Requested none History Surgery Operation Date: 04/08/25 12:20 Proposed Procedures p Esophagogastroduodenoscopy - Timothy Ramos MD Height/Weight Height: 5 ft 2 in Weight: 69.1 kg Allergies Allergy/AdvReac Type Severity Reaction Status Date / Time Iodinated Contrast Media Allergy Severe Anaphylaxis Verified 04/08/25 15:18 nickel Allergy Mild Rash Verified 04/08/25 15:18 Medications Home Medications Medication Instructions Recorded Confirmed Last Taken albuterol sulfate 90 mcg/actuation 2 puff inhalation Q4H PRN 07/20/23 04/08/25 2 Weeks Ago aerosol inhaler (Ventolin HFA) COUGH/SHORT OF BREATH/WHEEZING ~03/25/25 bupropion HCl 200 mg tablet,12 hr 200 mg PO BID 07/20/23 04/08/25 04/07/25 sustained-release (Wellbutrin SR) escitalopram oxalate 10 mg tablet 20 mg PO QAM 07/20/23 04/08/25 04/07/25 (Lexapro) fexofenadine 180 mg tablet 180 mg PO QAM 07/20/23 04/08/25 04/07/25 (Nguyen Allergy) metoprolol succinate 25 mg 25 mg PO QAM 07/20/23 04/08/25 04/07/25 tablet,extended release 24 hr omeprazole 20 mg capsule,delayed 20 mg PO DAILYBB 07/20/23 04/08/25 04/07/25 release multivitamin with folic acid 400 1 tab PO QAM #30 tabs 08/03/23 04/08/25 04/07/25 mcg tablet (Daily-Keturah (with folic acid)) Flutter Valve #1 ea 09/11/23 04/08/25 Unknown alendronate 70 mg tablet See Rx Instructions .Route .COMPLEX 04/08/25 04/08/25 03/31/25 diltiazem HCl 240 mg 240 mg PO QAM 04/08/25 04/08/25 04/07/25 capsule,extended release 24 hr hydralazine 10 mg tablet 10 mg PO TID 04/08/25 04/08/25 04/07/25 Past Medical History Medical History Hx of sepsis 07/2023 - [facility] Prediabetes Per records, patient denies Cryptogenic organizing pneumonia Pulmonary visit 06/2024: "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 RECOMMENDATIONS: 1. Cryptogenic organizing pneumonia -she received several weeks of prednisone therapy with decrease in size of the left upper lobe masslike consolidation. Bronchoscopic brushings were negative for malignancy. She still has a masslike consolidation left upper lobe." Mass of upper lobe of left lung Dr Moody NAFLD (nonalcoholic fatty liver disease) Pulmonary embolism 07/2023 per records, patient denies GERD (gastroesophageal reflux disease) Anxiety and depression SVT (supraventricular tachycardia) Follows with Dr. Navas COPD (chronic obstructive pulmonary disease) Asthma Mood disorder HTN (hypertension) Rheumatoid arthritis Past Family History Family History Other Asthma Breast cancer COPD (chronic obstructive pulmonary disease) Past Surgical History Surgical History History of thoracentesis History of bronchoscopy (09/25/23) History of carpal tunnel release Right History of tubal ligation History of wisdom tooth extraction History of colonoscopy Social History Smoking Status: Current every day smoker Smoking cigarettes per day: 1 pack Do You Dip or Chew Tobacco: No Hx Alcohol Use: Yes Alcohol type: hard liquor alcohol intake frequency: a few times a week Hx Substance Use: No substance use type: does not use Physical Exam Vital Signs Last Vital Signs Temp 97.9 F 04/08/25 10:39 Pulse 63 04/08/25 13:32 Resp 14 04/08/25 13:32 BP 193/96 H 04/08/25 13:32 Pulse Ox 96 04/08/25 13:32 O2 Del Method Room Air 04/08/25 13:32 Testing Laboratory Results 04/08/25 14:38 04/08/25 11:17 04/08/25 11:21 POC Glucose (other) 100 H
[2025-04-08] MEDS ORDERED: ALBUTEROL HFA 8 GM INHALER INH ONE (17:17)
[2025-04-08] MEDS ORDERED: DEXAMETHASONE SOD INJ 4 MG/ML VIAL ONE (17:25)
--- NOTE | 2025-04-08 17:41 | Communication Note ---
Date of Service: April 08, 2025 EGD 2 moderate-sized gastric ulcers. Prepyloric ulcer source of bleeding with visible vessel present. Injected with 1-10,000 epinephrine and BiCap at with hemostasis. Biopsies for H. pylori. Moderate duodenitis without duodenal ulcer. No varices Plan clear liquids. Continue PPI drip. Anticipate discharge in 48 hours. Should have DT and nicotine withdrawal prophylaxis
--- NOTE | 2025-04-08 17:51 | GI REPORT ---
[facility] Patient: SEA MORENO : 1965 Sex at : Female Age: 60 Years Procedure: Upper GI endoscopy Date: 04/08/2025 Attending Physician: Timothy Ramos MD Referring MD: Referred Self; Heraclio Fernandez DO Indications: - Hematemesis, upper GI bleed Medications: - General Anesthesia - See the Anesthesia note for documentation of the administered medications Complications: - No immediate complications. Estimated Blood Loss: - Estimated blood loss was minimal. Procedure: - The egd scope was introduced through the mouth and advanced to the second part of the duodenum. - The upper GI endoscopy was accomplished without difficulty. - The patient tolerated the procedure well. Findings: - The examined esophagus was normal. - Two non-bleeding cratered gastric ulcers with a nonbleeding visible vessel (Mao Class IIa) were found in the gastric antrum. The largest lesion was 30 mm in largest dimension. Also injected with 1-10,000 epinephrine. The visible vessel then treated with BiCap coagulation. BiCap probe opposed against visible vessel pressure applied. Then cautery undertaken until flattening and slight crater created. No bleeding. Visible vessel retracted . Biopsies then performed of ulcer edges. Submitted for histology and H. pylori. - A few erosions without bleeding were found in the duodenal bulb. Impression: - Normal esophagus. - Non-bleeding gastric ulcers with a nonbleeding visible vessel (Mao Class IIa). - Also injected with 1-10,000 epinephrine. The visible vessel then treated with BiCap coagulation. BiCap probe opposed against visible vessel pressure applied. Then cautery undertaken until flattening and slight crater created. No bleeding. Visible vessel retracted . Biopsies then performed of ulcer edges. Submitted for histology and H. pylori. - Erosive duodenopathy without bleeding. - No specimens collected. Recommendation: - Await pathology results. - Continue IV Protonix drip for 24 to 48 hours. - Treat H. pylori if present. - Avoid minimize NSAIDs going forward. If she cannot long-term PPI ulcer prophylaxis recommended Procedure Code(s): - 03159, Esophagogastroduodenoscopy, flexible, transoral; diagnostic, including collection of specimen(s) by brushing or washing, when performed (separate procedure) Diagnosis Code(s): - K25.4, Chronic or unspecified gastric ulcer with hemorrhage - K31.89, Other diseases of stomach and duodenum CPT(R) - 2023 copyright [employer]. All Rights Reserved. The CPT codes, CCI edits and ICD codes generated are intended as suggestions and were generated based on input data. These codes are preliminary and upon visual merchandising associate review may be revised to meet current compliance and payer requirements. The provider is responsible for the final determination of appropriate codes, and modifiers. Timothy Ramos MD This document has been electronically signed. Note Initiated:04/08/2025 Note Completed:04/08/2025 5:50 PM [id number]
[2025-04-08] MEDS: ALBUT/IPRATROP 3MG/0.5MG NEB 3 ML VIAL NEB STA (18:08)
[2025-04-08] MEDS: ALBUT/IPRATROP 3MG/0.5MG NEB 3 ML VIAL ONE (18:09)
--- NOTE | 2025-04-08 18:22 | Anesthesiology Progress Note ---
Date of Service April 08, 2025 Anesthesia Post Procedure Vital Signs Vital Signs: Temp Pulse Pulse Resp BP BP Pulse Ox 04/08/25 17:48 98.6 F 85 19 126/65 100 04/08/25 15:21 98.6 F 68 18 124/76 98 04/08/25 14:55 98.1 F 65 18 176/88 H 04/08/25 13:32 63 14 193/96 H 96 04/08/25 13:11 65 15 98 04/08/25 13:09 67 18 193/75 H 97 04/08/25 12:22 70 20 97 04/08/25 10:39 97.9 F 84 16 164/107 H 96 O2 Del Method O2 Flow Rate 04/08/25 17:48 Oxymask 6 04/08/25 15:21 Room Air 04/08/25 14:55 04/08/25 13:32 Room Air 04/08/25 13:11 Room Air 04/08/25 13:09 Room Air 04/08/25 12:22 04/08/25 10:39 Room Air Transfer of Care Handoff Completed per policy Notes Mental Status: alert / awake / arousable and participated in evaluation Patient Amnestic to Procedure: Yes Nausea / Vomiting: adequately controlled Pain: adequately controlled Airway Patency, RR, SpO2: stable & adequate BP & HR: stable & adequate Hydration State: stable & adequate Anesthetic Complications: no major complications apparent and Pt Satisfied with anesthetic care Notes: patient wheezing post op, duoneb tx given with improvement
[2025-04-08] MEDS: FOLIC ACID 1 MG in SYRINGE 9.8 ML IV SCH (19:40)
[2025-04-08] MEDS: THIAMINE HCL 200 MG in SODIUM CHLORIDE 0.9% 50 ML IV SCH (19:45)
[2025-04-08] MEDS: PANTOprazole 40 MG in DEXTROSE 5% MINI-B 100 ML IV SCH (19:51)
[2025-04-08] MEDS: hydrALAZINE 10 MG TAB PO SCH (19:54)
[2025-04-08] MEDS: SODIUM CHLORIDE 0.9% 1,000 ML IV SCH (19:57)
[2025-04-08] MEDS: NICOTINE 21 MG/24 HR TDSY TD SCH ×2 (20:04→20:14)
[2025-04-08 20:08] LABS: Hematocrit (blood only) 33.8 % (37.0-47.0); Hemoglobin 11.2 g/dl (12.0-16.0)
[2025-04-08] MEDS: PANTOPRAZOLE BOLUS/DRIP IV STA (20:13)
[2025-04-08] MEDS: METOCLOPRAMIDE HCL INJ 5 MG/ML 2 ML VIAL IV STA (20:14)
[2025-04-09 01:42] LABS: Hematocrit (blood only) 34.8 % (37.0-47.0); Hemoglobin 11.3 g/dl (12.0-16.0)
[2025-04-09 06:04] LABS: Hematocrit (blood only) 33.6 % (37.0-47.0); Hemoglobin 11.1 g/dl (12.0-16.0); Immature Granulocytes # (auto) 0.03 K/uL (0.01-0.20); Immature Granulocytes % (auto) 0.5 %; Mean Corpuscular Hemoglobin 33.2 pg (25.0-34.0); Mean Corpuscular Volume 100.6 fL (80.0-100.0); Platelet Count 178 K/uL (130-400); RDW Standard Deviation 50.1 fL (36.4-46.3); Red Blood Count 3.34 M/uL (4.20-5.40); White Blood Count 5.91 K/ul (4.8-10.8)
[2025-04-09 06:25] LABS: Alanine Aminotransferase 10.0 U/L (7-52); Albumin Globulin Ratio 1.2 (0.9-2); Alkaline Phosphatase 46.0 U/L (34-104); Anion Gap 5.0 (3-11); Bilirubin,Total 0.4 mg/dl (0.2-1.0); Blood Urea Nitrogen 10.0 mg/dl (6-23); Calcium 8.3 mg/dl (8.6-10.3); Carbon Dioxide 25.0 mmol/L (21-32); Chloride 110.0 mmol/L (98-107); Creatinine Clr Calc Pharmacy 80.1 ml/min; Globulin 2.9 gm/dl (2.5-4.0); Glucose 156.0 mg/dl (70-99(Fasting)); Potassium 3.9 mmol/L (3.5-5.1); Sodium 140.0 mmol/L (136-145); Total Protein 6.3 gm/dl (6.0-8.3)
[2025-04-09] MEDS: FOLIC ACID 1 MG in SYRINGE 9.8 ML IV SCH (07:47)
[2025-04-09] MEDS: ACETAMINOPHEN 325 MG TAB PO PRN (07:47)
[2025-04-09] MEDS: MULTIVITAMIN TAB PO SCH (07:48)
[2025-04-09] MEDS: FEXOFENADINE HCL 180 MG TAB PO SCH (07:48)
[2025-04-09] MEDS: ESCITALOPRAM OXALATE 20 MG TAB PO SCH (07:48)
[2025-04-09] MEDS: METOPROLOL SUCC 25MG EXT REL TAB PO SCH (07:49)
[2025-04-09] MEDS: FLUTICASONE FUROATE 100MCG 14 PUFFS/INHALER INH SCH (08:39)
[2025-04-09] MEDS: THIAMINE HCL 100 MG in SYRINGE 9 ML IV SCH (08:39)
[2025-04-09] MEDS: UMECLIDINIUM/VILANTEROL 62.5/25MCG 7 PUFFS/INHALER INH SCH (08:39)
[2025-04-09] MEDS ORDERED: REMOVE NICODERM PATCH SCH (08:59)
[2025-04-09] MEDS ORDERED: MULTIVITAMIN TAB PO SCH (09:00)
[2025-04-09] MEDS ORDERED: NON-FORMULARY MEDICATION (Fluticasone-Umeclidin-Vilanter [Trelegy Ellipta] 100-62.5-25 mcg INH SCH (09:00)
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
--- NOTE | 2025-04-09 13:25 | Gastroenterology Progress Note ---
Date of Service April 09, 2025 Assessment & Plan (1) Gastric ulcer: Plan: -Continue PPI gtt x 48 hours, then with transition to Protonix 40 mg BID -NSAID avoidance -Await biopsy results to r/o H pylori -Continue to monitor H/H Admission and Anticipated Discharge Date Admission Date: April 08, 2025 Supervising Physician Co-Signing Physician Notes Discussed findings with patient at bedside. She is doing well with no abdominal pain no signs of bleeding. Transition to p.o. Protonix tomorrow probably be discharged unless there is evidence of recurrent bleeding. She needs follow-up EGD in 6 to 8 weeks to document healing of these gastric ulcers. Biopsies are negative for H. pylori. Patient should avoid NSAIDs going forward. Maximum of 2 g acetaminophen and a given day. Subjective Patient is a 60 yo female with hematemesis found to have non-bleeding gastric ulcers with visible vessel and erosive gastropathy on EGD on 04/08/25. She is feeling well. No further hematemesis. No abdominal pain. No melena. H/H 11.1/33.6. She continues IV PPI gtt. Review of Systems Gastrointestinal: no abdominal pain, no nausea, no vomiting, no coffee ground emesis, no hematemesis, no diarrhea/loose stools and no melena Physical Exam Respiratory: normal respiratory effort Gastrointestinal (Abdomen): normal bowel sounds, soft, nontender, no hepatosplenomegaly Psychiatric: Orientation: alert and oriented x 3 Results & Data Results & Data Vital Signs (Past 12 Hours) Vital Signs Temp Pulse Pulse Resp BP BP Pulse Ox 04/09/25 11:05 36.7 C 68 17 168/77 H 95 04/09/25 07:32 36.8 C 86 18 184/75 H 93 04/09/25 07:00 80 04/09/25 04:00 36.9 C 79 18 111/71 111/71 95 O2 Del Method 04/09/25 11:05 Room Air 04/09/25 07:32 Room Air 04/09/25 07:00 04/09/25 04:00 Room Air PG Care Time/CCT Total # of Minutes Spent Total Time Spent with Patient: Total time spent is greater than 50% in coordination of care (as documented) at patient's floor/unit and/or counseling patient: Coding Level of Care Code 73612 SUB INP/OBS CARE 2/35MIN Diagnoses Gastric ulcer K25.9
[2025-04-09] MEDS: GABAPENTIN 600 MG TAB PO ONE (13:46)
[2025-04-09] MEDS: GABAPENTIN 1200MG ALCOHOL WITHDRAWAL LOAD PO STA (17:13)
[2025-04-09] MEDS: GABAPENTIN 600 MG TAB PO SCH (20:00)
[2025-04-10 06:10] LABS: Hematocrit (blood only) 32.7 % (37.0-47.0); Hemoglobin 10.4 g/dl (12.0-16.0); Mean Corpuscular Hemoglobin 32.6 pg (25.0-34.0); Mean Corpuscular Volume 102.5 fL (80.0-100.0); Platelet Count 169 K/uL (130-400); RDW Standard Deviation 52.8 fL (36.4-46.3); Red Blood Count 3.19 M/uL (4.20-5.40); White Blood Count 7.30 K/ul (4.8-10.8)
[2025-04-10 06:25] LABS: Anion Gap 3.0 (3-11); Blood Urea Nitrogen 9.0 mg/dl (6-23); Calcium 8.2 mg/dl (8.6-10.3); Carbon Dioxide 27.0 mmol/L (21-32); Chloride 112.0 mmol/L (98-107); Creatinine Clr Calc Pharmacy 75.7 ml/min; Glucose 91.0 mg/dl (70-99(Fasting)); Magnesium 2.4 mg/dl (1.7-2.4); Potassium 3.7 mmol/L (3.5-5.1); Sodium 142.0 mmol/L (136-145)
--- NOTE | 2025-04-10 06:44 | Electrocardiogram Report ---
Test Reason : Blood Pressure : */* mmHG Vent. Rate : 67 BPM Atrial Rate : 67 BPM P-R Int : 148 ms QRS Dur : 82 ms QT Int : 430 ms P-R-T Axes : 29 0 29 degrees QTcB Int : 454 ms Normal sinus rhythm Septal infarct , age undetermined Abnormal ECG When compared with ECG of 31-Aug-2024 16:26, Nonspecific T wave abnormality, improved in Inferior leads Nonspecific T wave abnormality, improved in Anterolateral leads Confirmed by Delroy Monge ([id number]) on 04/10/2025 6:44:20 AM Referred By: REFERRED SELF Confirmed By: Delroy Monge
[2025-04-10 07:16] VITALS: RESP 17; TEMP 97.3; O2SAT 89
[2025-04-10] MEDS: GABAPENTIN 600 MG TAB PO SCH (09:21)
[2025-04-10] MEDS: CEROVITE ADV FORMULA TAB PO SCH (09:21)
[2025-04-10] MEDS: ALUMINUM/MAGNESIUM SUSP 30 ML UDC PO PRN (10:35)
--- NOTE | 2025-04-10 11:08 | Gastroenterology Progress Note ---
Date of Service April 10, 2025 Assessment & Plan (1) Gastric ulcer: Plan: 2 gastric ulcers in the antrum prepyloric area 1 with visible vessel treated endoscopically. No bleeding now with day 2. I believe she can be discharged home twice daily pantoprazole for 2 weeks. Then pantoprazole 40 mg/day long- term. Mansi Churchill will arrange for follow-up endoscopy in 8 weeks to evaluate these gastric ulcers biopsies appear benign. Return if signs of bleeding. Avoidance of NSAIDs alcohol and nicotine as outlined above. Admission and Anticipated Discharge Date Admission Date: April 08, 2025 Subjective Gastric ulcer with hemorrhage No signs of clinical bleeding. Day 2. Patient feels well. Tolerating diet. Can be discharged home. Return if further hematemesis or melena. Discussed with patient avoidance or minimizing alcohol ingestion. She needs to stay away from aspirin and NSAIDs. Can use acetaminophen though with her history of alcohol ingestion she needs to be careful. Recommended maximum any given day of 2 g or less of acetaminophen. Biopsies of the ulcer been benign without H. pylori. Likely related to NSAIDs smoking excetra Long-term PPI use recommended. Twice daily PPI therapy for 2 to 3 weeks. She can go to once a day after that. If she gets breakthrough heartburn advised against [place] which can contain aspirin. Can use Pepcid AC. If she is unable to drink discussed standard teaching that maximum alcohol ingestion should be 1 ounce of hard spirits per day. Avoidance would be best. No safe levels of nicotine intake. Review of Systems Review of Systems: Currently denies weakness dizziness shortness of breath chest pain or abdominal pain Physical Exam Physical Exam: Peers well. She does not appear shaky or irritable. Abdomen benign Results & Data Results & Data Vital Signs (Past 12 Hours) Vital Signs Temp Pulse Pulse Resp BP Pulse Ox O2 Del Method 04/10/25 07:14 36.3 C L 61 17 168/87 H 89 L Room Air 04/10/25 07:00 54 L 04/10/25 03:23 36.4 C L 53 L 16 181/70 H 95 Room Air 04/09/25 23:15 36.9 C 54 L 21 170/81 H 93 Room Air PG Care Time/CCT Total # of Minutes Spent Total Time Spent with Patient: Total time spent is greater than 50% in coordination of care (as documented) at patient's floor/unit and/or counseling patient: Coding Level of Care Code 22715 SUB INP/OBS CARE 09/12MIN Diagnoses Gastric ulcer K25.9
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
[2025-04-10 12:31] VITALS: BP 168/77; PULSE 61
[2025-04-11] MEDS ORDERED: GABAPENTIN 600 MG TAB PO SCH (13:30)
[2025-04-13] MEDS ORDERED: GABAPENTIN 600 MG TAB PO SCH (01:30)
== END 2025-04-10 13:02 | disposition home or self-care (01) | DRG 379 ==
LOC: ED 10:22 → 2S 12:45 → SUATTDRO 12:45 → 2S 13:33